=== PATIENT | female | born 1985 | race Caucasian/White ===

== ENCOUNTER 2018-02-03 09:45 | Outpatient (RCR) | payer OTHER, MEDICAID, SELFPAY ==
--- NOTE | 2018-01-20 11:47 | PT.OTN ---
Physical Therapy Treatment Note PT-OP-Q Treatments Start: 01/20/18 08:59 Freq: Status: Active Protocol: Activity Type Activity Date Activity User E-Sign Co-Sign Detail Recorded Client Recorded Date Recorded By Document 01/20/18 11:27 LRN [id number] 01/20/18 11:38 LRN 01/20/18 11:27 Therapeutic Exercises [Standing Exercises] 2 -Standing Exercise Name Soleus Stretch -Side bilateral -Reps/Minutes 3 -Comments Hold 60 sec's 1 -Standing Exercise Name Gastroc Stretch -Side bilateral -Reps/Minutes 3 -Comments Hold 60 sec's PT-OP-R Modalities Start: 01/20/18 08:59 Freq: Status: Active Protocol: Activity Type Activity Date Activity User E-Sign Co-Sign Detail Recorded Client Recorded Date Recorded By Document 01/20/18 11:27 LRN [id number] 01/20/18 11:38 LRN 01/20/18 11:27 Ultrasound Therapy [Treatment] Lateral Ankle -Treatment Duration (minutes) 4 -Coupling Medium Ultrasound Gel -Frequency Setting (mHz) 3 -Mode Setting Pulsed -Intensity Setting (w/cm2) 1.0 -Patient Tolerance Good Current Diagnoses Age-related osteoporosis with current pathological fracture, unspecified site, subsequent encounter for fracture with routine healing (01/20/18) Other abnormalities of gait and mobility (01/20/18) Nondisplaced pilon fracture of left tibia, subsequent encounter for closed fracture with routine healing (01/20/18)
--- NOTE | 2018-01-20 12:38 | PT.OTN ---
Physical Therapy Treatment Note PT-OP-A Visit Information Start: 01/20/18 08:59 Freq: Status: Active Protocol: Activity Type Activity Date Activity User E-Sign Co-Sign Detail Recorded Client Recorded Date Recorded By Document 01/20/18 12:33 LRN [id number] 01/20/18 12:34 LRN 01/20/18 12:33 Out-Patient Physical Therapy Visit Information [Visit Information] -Visit Type Treatment Note -Visit Start Time 10:40 -Visit Stop Time 11:20 -Total Visit Minutes 40 -Visit Number 3 -Number of ELECTRONIC ENGINEERING DRAFTSPERSON Visits 0 PT-OP-C Subjective Start: 01/20/18 08:59 Freq: Status: Active Protocol: Activity Type Activity Date Activity User E-Sign Co-Sign Detail Recorded Client Recorded Date Recorded By Document 01/20/18 10:40 LRN [id number] 01/20/18 12:29 LRN 01/20/18 10:40 OP-PT Subjective [Patient Comments] -Patient Comments Pt reports minimal discomfort, no pain with walking, some pain with stair ambulation (at home). Wearing soft ankle brace at work that is causing some skin irritation . States last week she twisted her ankles -Patient Reported Progress Improving PT-OP-K Range of Motion Start: 01/20/18 11:27 Freq: Status: Active Protocol: Activity Type Activity Date Activity User E-Sign Co-Sign Detail Recorded Client Recorded Date Recorded By Document 01/20/18 10:40 LRN [id number] 01/20/18 12:29 LRN 01/20/18 10:40 Ankle and Foot Goniometric Range of Motion [Ankle and Foot] Measured in Degrees Left -Testing Position Supine -Dorsiflexion with Knee Extended 10 -Plantarflexion 60 -Inversion 32 -Eversion 45 PT-OP-Q Treatments Start: 01/20/18 08:59 Freq: Status: Active Protocol: Activity Type Activity Date Activity User E-Sign Co-Sign Detail Recorded Client Recorded Date Recorded By Document 01/20/18 11:27 LRN [id number] 01/20/18 11:38 LRN 01/20/18 11:27 Cardio Equipment [Recumbent Stepper (Sci-Fit)] -Duration (Minutes) 12 -Resistance Lev 2 Therapeutic Exercises [Supine Exercises] 1 -Supine Exercise Name PROM L ankle DF -Side left -Reps/Minutes 2 minutes -Comments Manual [Sitting Exercises] 1 -Sitting Exercise Name Soleus Stretch -Side left -Reps/Minutes 2 minutes [Standing Exercises] 2 -Standing Exercise Name Soleus Stretch -Side bilateral -Reps/Minutes 4 minutes -Comments Hold 60 sec's 1 -Standing Exercise Name Gastroc Stretch -Side bilateral -Reps/Minutes 4 minutes -Comments Hold 60 sec's Gait Training [Gait Activity] 1 -Description Stair ambulation -Treatment Focus Proper descent of stairs Self-Care/Home Management Treatment [Education] -Patient Education Home Exercise Program -Other Education Gastroc, Soleus , Anterior Tibialis stretch in standing PT-OP-R Modalities Start: 01/20/18 08:59 Freq: Status: Active Protocol: Activity Type Activity Date Activity User E-Sign Co-Sign Detail Recorded Client Recorded Date Recorded By Document 01/20/18 11:27 LRN [id number] 01/20/18 11:38 LRN 01/20/18 11:27 Ultrasound Therapy [Treatment] Left Posterior Leg -Treatment Duration (minutes) 4 -Coupling Medium Ultrasound Gel -Frequency Setting (mHz) 3 -Mode Setting Pulsed -Intensity Setting (w/cm2) 1.0 -Patient Tolerance Good Lateral Ankle -Treatment Duration (minutes) 4 -Coupling Medium Ultrasound Gel -Frequency Setting (mHz) 3 -Mode Setting Pulsed -Intensity Setting (w/cm2) 1.0 -Patient Tolerance Good PT-OP-T Assessment and Plan Start: 01/20/18 08:59 Freq: Status: Active Protocol: Activity Type Activity Date Activity User E-Sign Co-Sign Detail Recorded Client Recorded Date Recorded By Document 01/20/18 10:40 LRN [id number] 01/20/18 12:29 LRN 01/20/18 10:40 Physical Therapy Assessment [Assessment Summary] -Assessment Pt has improved in function per LEFS & FAAM scores ( previous: LEFS 13.7% of maximal function and FAAM score of 35.71% ADL function). Today LEFS is 52.5% of maximal function and 57 .14% ADL function. Pt ankle mobility is same but the pt's pain is decreased with daily walking and use of stairs (goals met). The pt's primary restriction with stair ambulation is weakness of LE' s and decreased L ankle mobility. Physical Therapy Plan [Frequency and Duration] -Frequency of Treatment 1x/Week -Duration of Treatment 3 weeks -Plan of Care Start Date 12/09/17 -Plan of Care End Date 02/07/18 [Next Visit Focus/Plan] -Next Visit Plan Assess L ankle mobility and stair ambulation; set pt up on independent HEP . Hold chart open for pt's remaining 2 visit to use by end of year. Current Diagnoses Age-related osteoporosis with current pathological fracture, unspecified site, subsequent encounter for fracture with routine healing (01/20/18) Other abnormalities of gait and mobility (01/20/18) Nondisplaced pilon fracture of left tibia, subsequent encounter for closed fracture with routine healing (01/20/18)
--- NOTE | 2018-01-20 12:39 | PT.OTN ---
Addendum entered and electronically signed by Chantal New 01/20/18 14:44: On January 20, 2018 our therapy services consisting of Speech, Occupational, and Physical therapy transitioned from [employer] electronic documentation system to a new [employer] electronic system. All documentation prior to January 20 can be found under [employer] saved data. From January 20 forward, all medical record documentation will be in [email or web address]. Original Note: Physical Therapy Treatment Note PT-OP-A Visit Information Start: 01/20/18 08:59 Freq: Status: Active Protocol: Activity Type Activity Date Activity User E-Sign Co-Sign Detail Recorded Client Recorded Date Recorded By Document 01/20/18 12:33 LRN [id number] 01/20/18 12:34 LRN 01/20/18 12:33 Out-Patient Physical Therapy Visit Information [Visit Information] -Visit Type Treatment Note -Visit Start Time 10:40 -Visit Stop Time 11:20 -Total Visit Minutes 40 -Visit Number 3 -Number of BUSINESS CONTINUITY MANAGEMENT DIRECTOR Visits 0 PT-OP-C Subjective Start: 01/20/18 08:59 Freq: Status: Active Protocol: Activity Type Activity Date Activity User E-Sign Co-Sign Detail Recorded Client Recorded Date Recorded By Document 01/20/18 10:40 LRN [id number] 01/20/18 12:29 LRN 01/20/18 10:40 OP-PT Subjective [Patient Comments] -Patient Comments Pt reports minimal discomfort, no pain with walking, some pain with stair ambulation (at home). Wearing soft ankle brace at work that is causing some skin irritation . States last week she twisted her ankles -Patient Reported Progress Improving PT-OP-K Range of Motion Start: 01/20/18 11:27 Freq: Status: Active Protocol: Activity Type Activity Date Activity User E-Sign Co-Sign Detail Recorded Client Recorded Date Recorded By Document 01/20/18 10:40 LRN [id number] 01/20/18 12:29 LRN 01/20/18 10:40 Ankle and Foot Goniometric Range of Motion [Ankle and Foot] Measured in Degrees Left -Testing Position Supine -Dorsiflexion with Knee Extended 10 -Plantarflexion 60 -Inversion 32 -Eversion 45 PT-OP-Q Treatments Start: 01/20/18 08:59 Freq: Status: Active Protocol: Activity Type Activity Date Activity User E-Sign Co-Sign Detail Recorded Client Recorded Date Recorded By Document 01/20/18 11:27 LRN [id number] 01/20/18 11:38 LRN 01/20/18 11:27 Cardio Equipment [Recumbent Stepper (Sci-Fit)] -Duration (Minutes) 12 -Resistance Lev 2 Therapeutic Exercises [Supine Exercises] 1 -Supine Exercise Name PROM L ankle DF -Side left -Reps/Minutes 2 minutes -Comments Manual [Sitting Exercises] 1 -Sitting Exercise Name Soleus Stretch -Side left -Reps/Minutes 2 minutes [Standing Exercises] 2 -Standing Exercise Name Soleus Stretch -Side bilateral -Reps/Minutes 4 minutes -Comments Hold 60 sec's 1 -Standing Exercise Name Gastroc Stretch -Side bilateral -Reps/Minutes 4 minutes -Comments Hold 60 sec's Gait Training [Gait Activity] 1 -Description Stair ambulation -Treatment Focus Proper descent of stairs Self-Care/Home Management Treatment [Education] -Patient Education Home Exercise Program -Other Education Gastroc, Soleus , Anterior Tibialis stretch in standing PT-OP-R Modalities Start: 01/20/18 08:59 Freq: Status: Active Protocol: Activity Type Activity Date Activity User E-Sign Co-Sign Detail Recorded Client Recorded Date Recorded By Document 01/20/18 11:27 LRN [id number] 01/20/18 11:38 LRN 01/20/18 11:27 Ultrasound Therapy [Treatment] Left Posterior Leg -Treatment Duration (minutes) 4 -Coupling Medium Ultrasound Gel -Frequency Setting (mHz) 3 -Mode Setting Pulsed -Intensity Setting (w/cm2) 1.0 -Patient Tolerance Good Lateral Ankle -Treatment Duration (minutes) 4 -Coupling Medium Ultrasound Gel -Frequency Setting (mHz) 3 -Mode Setting Pulsed -Intensity Setting (w/cm2) 1.0 -Patient Tolerance Good PT-OP-T Assessment and Plan Start: 01/20/18 08:59 Freq: Status: Active Protocol: Activity Type Activity Date Activity User E-Sign Co-Sign Detail Recorded Client Recorded Date Recorded By Document 01/20/18 10:40 LRN [id number] 01/20/18 12:29 LRN 01/20/18 10:40 Physical Therapy Assessment [Assessment Summary] -Assessment Pt has improved in function per LEFS & FAAM scores ( previous: LEFS 13.7% of maximal function and FAAM score of 35.71% ADL function). Today LEFS is 52.5% of maximal function and 57 .14% ADL function. Pt ankle mobility is same but the pt's pain is decreased with daily walking and use of stairs (goals met). The pt's primary restriction with stair ambulation is weakness of LE' s and decreased L ankle mobility. Physical Therapy Plan [Frequency and Duration] -Frequency of Treatment 1x/Week -Duration of Treatment 3 weeks -Plan of Care Start Date 12/09/17 -Plan of Care End Date 02/07/18 [Next Visit Focus/Plan] -Next Visit Plan Assess L ankle mobility and stair ambulation; set pt up on independent HEP . Hold chart open for pt's remaining 2 visit to use by end of year. Current Diagnoses Age-related osteoporosis with current pathological fracture, unspecified site, subsequent encounter for fracture with routine healing (01/20/18) Other abnormalities of gait and mobility (01/20/18) Nondisplaced pilon fracture of left tibia, subsequent encounter for closed fracture with routine healing (01/20/18)
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
--- NOTE | 2018-05-01 08:57 | PT.OTN ---
Current Diagnoses Age-related osteoporosis with current pathological fracture, unspecified site, subsequent encounter for fracture with routine healing (02/03/18) Other abnormalities of gait and mobility (02/03/18) Nondisplaced pilon fracture of left tibia, subsequent encounter for closed fracture with routine healing (02/03/18) Physical Therapy Treatment Note PT-OP-A Visit Information Start: 01/20/18 08:59 Freq: Status: Active Protocol: Document 05/01/18 08:54 LRN (Rec: 05/01/18 08:57 LRN [id number]) Out-Patient Physical Therapy Visit Information Visit Information Visit Type Administrative Note Visit Note Message left on phone requesting pt to call back regarding pt needing further therapy visits. Informed pt if she does not call back by she will be discharged from therapy. Visit Start Time 08:55
--- NOTE | 2018-05-21 10:12 | PT.OPDS ---
Current Diagnoses Age-related osteoporosis with current pathological fracture, unspecified site, subsequent encounter for fracture with routine healing (02/03/18) Other abnormalities of gait and mobility (02/03/18) Nondisplaced pilon fracture of left tibia, subsequent encounter for closed fracture with routine healing (02/03/18) Provider Visit Care Team Role Provider Type Roberto Carlos Sood MD Attending Provider Physician Primary Care Provider Specialty: Internal Medicine Address: [address] [place] [address], [facility] Email: Visit Number Visit Number 4 Discharge Summary Patient Questionnaires Foot & Ankle Ability Measure- ADL and Sports FAAM-ADL Score 61 FAAM-ADL Impairment 20 to 39% Impaired (Score 50- 66) Lower Extremity Functional Scale LEFS Score 41 LEFS Impairment 40 to 59% Impaired (Score 32- 47) PT-OP-K Range of Motion Start: 01/20/18 11:27 Freq: Status: Active Protocol: Document 02/03/18 10:06 LRN (Rec: 02/06/18 20:09 LRN [id number]) Ankle and Foot Goniometric Range of Motion Ankle and Foot Measured in Degrees Left Passive Testing Position Supine Dorsiflexion with Knee Extended 15 Right Active Testing Position Supine Dorsiflexion with Knee Extended 10 Plantarflexion 65 Inversion 25 Eversion 25 Left Testing Position Supine Dorsiflexion with Knee Extended 10 Plantarflexion 60 Inversion 20 Eversion 32 PT-OP-T Assessment and Plan Start: 01/20/18 08:59 Freq: Status: Active Protocol: Document 05/21/18 10:03 LRN (Rec: 05/21/18 10:12 LRN [id number]) Physical Therapy Assessment Progress Towards Goals Progress Towards Goals Goals Met Progress Comments 1) Function improved per Lower Extremity Function Scale Score: Discharge: 51% impaired . 2) Function per Foot & Ankle Ability Measure: ADL: Discharge: 72% function. 3) L ankle AROM improvements met. Pt is able to ambulate on level surface with her normal gait pattern and no pain. 4) Muscle strength improved: Prolonged walking at end of day work causes slight sore feet. 5) Stair ambulation: Pt is avle to ambulate going up stairs without difficulty or pain. Descending stairs is limited depending on the height of the step. She must descend slowly and using a railing for safety. 6) Pt has been issued home ex 's. Assessment Summary Assessment The pt was last seen on . Assessment of the pt on her last attended visit showed she had progressed well with intermittent therapy visits, and the pt working independently on a home program. Functionally she had improved greatly. 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 The primary area of concern was with her balance due to weakness and decreased sensation in her feet from her previous stroke. The pt had been educated on a HEP and was aware of her physical deficits. The pt will need a new physical therapy referral if further therapy is needed. Thank you for your physical therapy referral. Physical Therapy Plan Next Visit Focus/Plan Next Note Type Discharge Summary Next Visit Plan Pt has completed therapy with good results and goals met. No further therapy is planned. Pt is being discharged from physical therapy.
== END 2018-05-22 09:38 ==
LOC: PHYS 09:45
PROVIDERS: PCP Internal Medicine; Visit Provider Internal Medicine
DX: S82.875D Nondisplaced pilon fracture of left tibia, subsequent encounter for closed fracture with routine healing (principal); M80.00XD Age-related osteoporosis with current pathological fracture, unspecified site, subsequent encounter for fracture with routine healing; R26.89 Other abnormalities of gait and mobility
CPT/HCPCS: 97010; 97035; 97110

== ENCOUNTER 2018-02-07 19:36 | Emergency (ER) | payer OTHER, MEDICAID, SELFPAY ==
[2018-02-07 19:46] VITALS: BP 112/78; PULSE 110; RESP 18; TEMP 36.1; O2SAT 99; BMI 16.8
--- NOTE | 2018-02-07 20:29 | PC.NURSE ---
patient requesting assistance with her alcohol dependency. physician evaluating patient presently. patient states last drink was immediately prior to arrival.
--- NOTE | 2018-02-07 20:52 | ED.ALCOHOL ---
HPI - Alcohol General Chief Complaint: Toxicology Problem Stated Complaint: 'NEED TO GO TO DETOX' Time Seen by Provider: 02/07/18 20:24 History of Present Illness HPI narrative: HPI 32-year-old female with history of EtOH abuse presents requesting assistance with alcohol withdraw. Patient is been drinking throughout the day at baseline. Patient reports that she drinks at least 6 rings day. Patient denies history of prior DVT or seizures during withdrawal. Patient has access to AA and to sponsors. Patient's primary care physician. Patient denies recent fevers, chills, or other systemic symptoms. Patient reports a history of ascites, takes furosemide and Spironolactone. Patient has follow-up on Friday with a liver specialist at . ROS with no recent constitutional symptoms. Exam Gen: Pleasant, non-toxic appearing, resting comfortably HEENT: NC, AT, PEERL, EOMI. Resp: Clear to auscultation bilaterally. Unlabored respirations with a normal work of breathing. Card: Regular rate and rhythm. Extremities warm and well perfused. GI: Non-distended. : Deferred MSK: No visible deformities, strength and tone without visually appreciable deficit. Neuro: AO x 3, no facial asymmetry, vision and hearing WNL. Mild slurring of speech. Heme/Lymph: Deferred Skin: Normal color with no visible lesions (other than noted above). Psych: Mood and affect appropriate. MDM Previous chart, nursing note, and vitals reviewed. A: 32-year-old female with history of EtOH abuse presents requesting assistance with alcohol withdraw. DDx & Evaluation: patient without findings of clinically significant impairment, nor evidence of withdraw on exam. Discussed management options with patient regarding remain the ED for contacting [facility] for possible inpatient care versus discharge with follow-up by patient with PCP, [facility], and AA. Patient elected for discharge. Patient prescribed gabapentin taper given return to care precautions. Impression: substance abuse (please reference below for remainder of encounter information) Related Data Home Medications Medication Instructions Recorded Confirmed ciprofloxacin HCl [Cipro] 750 mg PO QWEEK #0 06/03/17 lorazepam 1 mg PO BIDP PRN #0 09/13/17 sertraline 25 mg PO QDAY #0 09/13/17 cholecalciferol (vitamin D3) 1,000 unit PO QDAY #0 09/18/17 [Vitamin D3] lactulose 20 gm PO BID #0 09/18/17 spironolactone 100 mg PO QDAY #0 09/18/17 trazodone 100 mg PO HS #0 09/18/17 amitriptyline 75 mg PO HS #0 12/03/17 ranitidine HCl 150 mg PO HS #0 12/03/17 Previous Rx's Medication Instructions Recorded bupropion HCl [Wellbutrin XL] 150 mg PO QDAY #30 tab 05/28/17 ondansetron 4 mg SUBLINGUAL Q6HP PRN #14 tab 05/28/17 furosemide 40 mg PO QDAY #30 tab 12/03/17 potassium chloride 20 meq PO QDAY #90 tab 12/03/17 lorazepam [Ativan] 1 mg PO SEE INSTRUCTIONS #18 tab 12/24/17 ondansetron [Zofran ODT] 4 mg SUBLINGUAL Q6HP PRN #16 odt 12/24/17 Allergies Allergy/AdvReac Type Severity Reaction Status Date / Time No Known Allergies Allergy Uncoded 12/31/17 12:43 PFSH Social History Smoking Status: Former smoker Exam Initial Vital Signs Initial Vital Signs: Vital Signs Temperature 96.9 F L 02/07/18 19:46 Pulse Rate 110 H 02/07/18 19:46 Respiratory Rate 18 02/07/18 19:46 Blood Pressure 112/78 02/07/18 19:46 Pulse Oximetry 99 02/07/18 19:46 Course Vital Signs - 8 hr 02/07/18 19:46 Temperature 96.9 F L Pulse Rate 110 H Respiratory Rate 18 Blood Pressure 112/78 Pulse Oximetry 99 Discharge Plan Departure Prescriptions: No Action bupropion HCl [Wellbutrin XL] 150 MG tablet extended release 24 hr 150 mg PO QDAY Qty: 30 RF: 0 ondansetron 4 MG tablet,disintegrating 4 mg Sublingual Q6HP PRNQty: 14 RF: 0 ciprofloxacin HCl [Cipro] 500 MG tablet 750 mg PO QWEEK Qty: 0 RF: 0 sertraline 25 MG tablet 25 mg PO QDAY Qty: 0 RF: 0 lorazepam 1 MG tablet 1 mg PO BIDP PRNQty: 0 RF: 0 lactulose 20 GM/30 ML solution 20 gm PO BID Qty: 0 RF: 0 spironolactone 100 MG tablet 100 mg PO QDAY Qty: 0 RF: 0 cholecalciferol (vitamin D3) [Vitamin D3] 1,000 UNIT tablet 1,000 unit PO QDAY Qty: 0 RF: 0 trazodone 50 MG tablet 100 mg PO HS Qty: 0 RF: 0 ranitidine HCl 150 MG tablet 150 mg PO HS Qty: 0 RF: 0 amitriptyline 25 MG tablet 75 mg PO HS Qty: 0 RF: 0 furosemide 40 MG tablet 40 mg PO QDAY Qty: 30 RF: 0 potassium chloride 20 MEQ tablet,ER particles/crystals 20 meq PO QDAY Qty: 90 RF: 0 lorazepam [Ativan] 1 MG tablet 1 mg PO SEE INSTRUCTIONS Qty: 18 RF: 0 ondansetron [Zofran ODT] 4 MG tablet,disintegrating 4 mg Sublingual Q6HP PRNQty: 16 RF: 0
[2018-02-07 21:19] VITALS: BP 94/65; PULSE 94; RESP 18; O2SAT 100
== END 2018-02-07 21:22 | disposition home or self-care (01) ==
PROVIDERS: Emergency Provider Emergency Medicine; PCP Internal Medicine
DX: F10.10 Alcohol abuse, uncomplicated (principal)
CPT/HCPCS: 99282

== ENCOUNTER → 2018-03-24 11:59 | Outpatient (CLI) | payer OTHER, MEDICAID, SELFPAY ==
--- NOTE | 2018-03-24 | DI.RAD.S_ITS ---
PROCEDURE: XR KNEE LT 3V INDICATIONS: PAIN IN LEFT ANKLE AND JOINTS, PAIN IN LEFT KNEE TECHNIQUE: 3 views of the knee were acquired. COMPARISON: [facility], CR, XR KNEE ARTHRITIC SERIES LT, 12/09/2016, 10:01. [facility], CR, KNEE 3V LEFT, 05/03/2017, 7:35. [facility], CR, KNEE 3V LEFT, 09/09/2017, 10:20. FINDINGS: Bones: No fractures or dislocations. There is minimal involvement of ill-defined sclerosis involving the medial and lateral femoral condyles probable possible subtle lytic area involving the lateral femoral condyle measuring 2.8 cm. Subcentimeter unchanged presumed bone island projects in the medial femoral condyle. There is degenerative spurring and mild narrowing of the medial and lateral joint spaces. Soft tissues: Small left knee joint effusion. There is diffuse soft tissue swelling. No suspicious soft tissue calcifications. IMPRESSION: Interval development of ill-defined lucent focus involving the medial femoral condyle and patchy surrounding sclerosis. Findings are technically indeterminate however cannot exclude an indolent infection, or possibly atypical avascular necrosis. Recommend further evaluation with contrast-enhanced MRI knee. Mild joint degeneration. Small knee joint effusion. Diffuse soft tissue swelling which appears progressed since the prior study dated 12/09/16 Dictated by: Chano Sierra M.D. on 03/24/2018 at 13:53 Approved by: Chano Sierra M.D. on 03/24/2018 at 14:00
--- NOTE | 2018-03-24 | DI.RAD.S_ITS ---
PROCEDURE: XR ANKLE LT MIN 3V INDICATIONS: PAIN IN LEFT ANKLE AND JOINTS, PAIN IN LEFT KNEE TECHNIQUE: 3 views of the ankle were acquired. COMPARISON: [facility], CT, LOWER EXTREMITY WO CONTRAST, 10/02/2017, 13:08. [facility], CR, FOOT 3V LEFT, 09/13/2017, 13:06. [facility], CR, XR ANKLE 3+ VIEWS RIGHT, 07/04/2017, 10:01. [facility], CT, LOWER EXTREMITY WO CONTRAST, 06/26/2017, 10:23. [facility], CR, ANKLE 3 VIEWS LEFT, 06/03/2017, 1:24. [facility], CR, XR ANKLE 3+ VIEWS LEFT, 09/25/2017, 15:26. [facility], CR, XR ANKLE 3+ VIEWS LEFT, 10/23/2017, 13:35. [facility], CR, XR KNEE LT 3V, 03/24/2018, 12:06. [facility], CR, ANKLE 3 VIEWS LEFT, 09/13/2017, 13:06. FINDINGS: Bones: No definite acute fractures or dislocations. Ankle mortise is normally aligned. There is increased conspicuity of patchy sclerosis in the tibial pond and distal tibial metaphysis. Tibiotalar joint space is grossly clear. Bone island projects in the talus, unchanged. There is also periosteal reaction along the medial aspect of the distal tibial metaphysis. Soft tissues: No tibiotalar joint effusion. Achilles tendon appears normal. IMPRESSION: Interval development of patchy sclerosis involving the distal tibial metaphysis with periosteal new bone formation along the medial distal tibial cortex in keeping with healing nondisplaced fracture. No definite acute fracture is seen although if the patient's symptoms persist, recommend further assessment with dedicated noncontrast ankle MRI. Dictated by: Chano Sierra M.D. on 03/24/2018 at 14:00 Approved by: Chano Sierra M.D. on 03/24/2018 at 14:16
[2018-03-24 12:37] LABS: Add Manual Diff / Slide Review NO; Basophils Percent Auto 1.3 % (0-2); Eosinophils Percent Auto 1.2 % (2-4); Hematocrit 31.7 % (36-46); Hemoglobin 10.9 g/dL (12.0-16.0); Lymphocytes Percent Auto 37.3 % (25-40); Mean Corpuscular HGB Conc 34.5 % (30-36); Mean Corpuscular Hemoglobin 34.9 PG (26-34); Mean Corpuscular Volume 101.1 fL (80-100); Monocytes Percent Auto 18.9 % (3-14); Neutrophils Absolute Auto 1200 /uL (3000-5900); Neutrophils Percent Auto 41.3 % (50-75); Platelet Count 180 X10^3/uL (150-400); Red Blood Cell Count 3.13 X10^6/uL (4.0-5.2); Red Cell Distribution Width 14.6 % (11.6-14.8); White Blood Cell Count 2.8 X10^3/uL (4.5-11.0)
[2018-03-24 12:46] LABS: Alanine Aminotransferase 23 IU/L (9-52); Albumin 4.1 g/dL (3.5-5.0); Albumin Globulin Ratio 1.2 (1.0-2.8); Alkaline Phosphatase 127 U/L (38-126); Aspartate Aminotransferase 38 IU/L (14-36); Bilirubin Total 0.3 mg/dL (0.2-1.3); Bilirubin Unconjugated 0.1 mg/dL (0.0-1.1); Globulin 3.3 g/dL (1.7-4.1); HEMOLYSIS < 15 (0-50); Total Protein 7.4 g/dL (6.3-8.2)
[2018-03-24 12:56] LABS: INR 1.2 (0.9-1.3)
== END ==
PROVIDERS: PCP Internal Medicine; Visit Provider Physician Assistant
DX: M25.572 Pain in left ankle and joints of left foot (principal); M25.562 Pain in left knee; K70.31 Alcoholic cirrhosis of liver with ascites; K70.40 Alcoholic hepatic failure without coma; M17.12 Unilateral primary osteoarthritis, left knee; M25.462 Effusion, left knee
CPT/HCPCS: 36415; 73562; 73610; 80076; 85025; 85610

== ENCOUNTER → 2018-04-08 16:26 | Outpatient (CLI) | payer OTHER, MEDICAID, SELFPAY ==
--- NOTE | 2018-04-08 | DI.MRI.S_ITS ---
PROCEDURE: MR KNEE LT WO/W CON INDICATIONS: Left knee pain TECHNIQUE: Noncontrast sagittal PD fast spin echo and T2 fast spin echo with fat saturation, sagittal 3-D FLASH with fat saturation; coronal T1 spin echo and PD fast spin echo with fat saturation, and axial T1 spin echo and PD fast spin echo with fat saturation through the knee. Post-contrast axial, coronal, and sagittal T1 spin echo with fat saturation through the knee. COMPARISON: [facility], CT, LOWER EXTREMITY WO CONTRAST, 06/26/2017, 10:23. [facility], CR, XR ANKLE LT MIN 3V, 03/24/2018, 12:07. [facility], MR, MR KNEE LT WO CON, 12/09/2016, 10:53. [facility], CR, KNEE 3V LEFT, 09/09/2017, 10:20. [facility], CR, XR KNEE LT 3V, 03/24/2018, 12:06. FINDINGS: Image quality: Excellent. Menisci: The medial and lateral menisci demonstrate normal morphology and. The meniscal root ligaments appear intact. Cruciate ligaments: The anterior and posterior cruciate ligaments appear intact. Medial structures: The medial collateral ligament appears intact. The posterior oblique ligament, semimembranosus tendon insertions, and oblique popliteal liagment, and meniscocapsular junction appear intact. Visualized portions of the pes anserinus tendons appear normal. No abnormal bursal fluid. Lateral structures: The lateral collateral ligament, long and short heads of the biceps femoris tendon appear intact. The popliteus tendon appears normal; the popliteofibular ligament appears intact. The posterosuperior and anteroinferior popliteomeniscal fascicles appear intact. The arcuate and fabellofibular ligaments appear intact, around the lateral inferior geniculate artery. Iliotibial band appears normal. Anterior structures: The quadriceps and patellar tendons appear intact. Patellar alignment is normal. No femoral trochlear dysplasia or ventral trochlear prominence. No edema in the infrapatellar fat pad. Bones and cartilage: There is a large geographic area in the femoral metaphysis and both medial and lateral femoral condyles, demonstrating hypoeintense T1 and hyperintense T2 signal, consistent with avascular osteonecrosis. Linear low signal extending to the articular surface of the medial and lateral femoral condyle. In the medial tibial plateau, similar findings are present just under the articular surface, consistent with avascular osteonecrosis. The cartilage of the medial and lateral femorotibial compartments, as well as the patellofemoral compartment, appears normal in thickness. Joint space: There is small knee joint effusion. Tiny Tijerina's cyst. Normal appearing synovial plicae are incidentally noted. No suspicious soft tissue enhancement. IMPRESSION: 1. 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 Linear low signal extending to the articular surface of the medial and lateral femoral condyle. There is no deformity or collapse of femoral articular surface. 2. Avascular the medial tibial plateau. 3. Small knee joint effusion. 4. Recommend clinical correlation for risk factors of avascular osteonecrosis, such as chronic steroids use, alcoholism, sickle cell disease and Gaucher disease. If there is systemic condition predisposing for avascular osteonecrosis, contralateral knee MRI may be obtained if there is right knee pain as well. Dictated by: Dileep Pichardo M.D. on 04/09/2018 at 9:30 Transcribed by: GLENN on 04/09/2018 at 9:45 Approved by: Dileep Pichardo M.D. on 04/10/2018 at 18:42
== END ==
PROVIDERS: PCP Internal Medicine; Visit Provider Physician Assistant
DX: M25.562 Pain in left knee (principal); M25.462 Effusion, left knee; M89.8X6 Other specified disorders of bone, lower leg
CPT/HCPCS: 73723

== ENCOUNTER 2018-04-11 21:27 | Emergency (ER) | payer OTHER, MEDICAID, SELFPAY ==
[2018-04-11 21:37] VITALS: BP 112/81; PULSE 87; RESP 18; TEMP 36.7; O2SAT 98; BMI 16.8
[2018-04-11 21:45] VITALS: PULSE 87
--- NOTE | 2018-04-11 21:53 | DI.RAD.S_ITS ---
PROCEDURE: XR HIP W PEL IF DONE RT 2V INDICATIONS: R hip pain, cannot ambulate TECHNIQUE: AP pelvis with lateral view(s) of the right hip(s). COMPARISON: [facility], CT, ABDOMEN/PELVIS WITH CONTRAST, 03/05/2017, 22:18. FINDINGS: Bones: No fractures or dislocations. Pelvic ring appears intact. No suspicious bony lesions. Soft tissues: The visualized bowel gas pattern is normal. No suspicious soft tissue calcifications. IMPRESSION: No visualized fracture. The clinical concern and/or pain persist, short interval imaging followup and 7-10 days is recommended for further evaluation Dictated by: Lissy Fuentes M.D. on 04/11/2018 at 22:38 Approved by: Lissy Fuentes M.D. on 04/11/2018 at 22:39
--- NOTE | 2018-04-11 22:52 | ED_ITS ---
HPI - Extremity Problem General Chief complaint: Extremity Problem,Nontraumatic Stated complaint: RIGHT HIP PAIN Time Seen by Provider: 04/11/18 21:45 Source: patient and family Mode of arrival: ambulatory Limitations: no limitations History of Present Illness HPI Narrative: 32-year-old female with extensive history of chronic malnutrition , anorexia or, chronic alcoholism presents with right hip pain in the absence of injury over the past few days. She does have significant trouble with her left knee and had a recent MRI which shows avascular necrosis and as the result she has been walking with an altered gait for some time. She does state that on occasion she feels clicking and popping in her hip. She denies radiation of the pain. It is worse with motion and improves with rest. MD Complaint: extremity pain Onset (ago): day(s) Pain Consistency: constant Location: right Quality: burning and stabbing Radiation: none Relieving factors: rest Exacerbating factors: range of motion, weight bearing and walking Associated symptoms: denies other symptoms Related Data Home Medications Medication Instructions Recorded Confirmed ciprofloxacin HCl [Cipro] 750 mg PO QWEEK #0 06/03/17 lorazepam 1 mg PO BIDP PRN #0 09/13/17 sertraline 25 mg PO QDAY #0 09/13/17 cholecalciferol (vitamin D3) 1,000 unit PO QDAY #0 09/18/17 [Vitamin D3] lactulose 20 gm PO BID #0 09/18/17 spironolactone 100 mg PO QDAY #0 09/18/17 trazodone 100 mg PO HS #0 09/18/17 amitriptyline 75 mg PO HS #0 12/03/17 ranitidine HCl 150 mg PO HS #0 12/03/17 Previous Rx's Medication Instructions Recorded bupropion HCl [Wellbutrin XL] 150 mg PO QDAY #30 tab 05/28/17 ondansetron 4 mg SUBLINGUAL Q6HP PRN #14 tab 05/28/17 furosemide 40 mg PO QDAY #30 tab 12/03/17 potassium chloride 20 meq PO QDAY #90 tab 12/03/17 lorazepam [Ativan] 1 mg PO SEE INSTRUCTIONS #18 tab 12/24/17 ondansetron [Zofran ODT] 4 mg SUBLINGUAL Q6HP PRN #16 odt 12/24/17 gabapentin 400 mg PO TID #20 cap 02/07/18 hydrocodone-acetaminophen 1 tab PO Q4-6H PRN #14 tab 04/11/18 Allergies Allergy/AdvReac Type Severity Reaction Status Date / Time No Known Allergies Allergy Uncoded 12/31/17 12:43 Review of Systems Review of Systems All systems reviewed & are unremarkable except as noted in HPI and below Constitutional Denies chills, Denies fever(s), Denies lethargy and Denies weakness Eyes Denies change in vision, Denies eye discharge, Denies irritation and Denies loss of vision ENT Ears, Nose, Mouth, and Throat: Denies change in voice, Denies neck pain and Denies sore throat Cardiovascular Denies chest pain, Denies irregular heart rhythm, Denies lightheadedness, Denies palpitations, Denies dyspnea, Denies dyspnea on exertion and Denies orthopnea Respiratory Denies cough, Denies dyspnea, Denies dyspnea on exertion and Denies wheezing Gastrointestinal Gastrointestinal: Denies abdominal pain, Denies change in bowel habits, Denies diarrhea, Denies nausea and Denies vomiting Genitourinary Denies hematuria, Denies flank pain, Denies urinary incontinence and Denies urinary urgency Musculoskeletal Reports limited range of motion and Denies neck pain Integumentary/Breasts Denies pruritus, Denies erythema, Denies rash and Denies wounds Neurologic Denies confusion, Denies loss of vision and Denies weakness Psychiatric Denies anxiety, Denies confusion, Denies depression, Denies homicidal ideation and Denies suicidal ideation Endocrine Denies palpitations Hematologic/Lymphatic Denies easy bruising Allergic/Immunologic Denies wheezing [facility] Social History Smoking Status: Former smoker Exam Narrative Exam Narrative: Chronically ill 32-year-old female appears older than stated age. She is, however resting comfortably and in no obvious acute distress Initial Vital Signs Initial Vital Signs: Vital Signs Temperature 98.0 F 04/11/18 21:37 Pulse Rate 87 04/11/18 21:37 Respiratory Rate 18 04/11/18 21:37 Blood Pressure 112/81 H 04/11/18 21:37 Pulse Oximetry 98 04/11/18 21:37 Const General: cooperative, well developed and frail appearing Nutritional Appearance: underweight Orientation: alert, awake, oriented x3 and not confused HENMT Head: normocephalic and atraumatic Ears: external ears normal and TM's normal bilaterally Nose: external nose normal and No nasal discharge Face and sinus: sinuses nontender, face symmetric, no sinus tenderness and No dry mucous membranes Mouth: oral mucosae normal and moist mucous membranes Teeth and gingiva: dentition normal Throat: tonsils normal and uvula midline Resp Effort & Inspection: normal respiratory effort, able to speak in complete sentences, no respiratory distress and no use of accessory muscles Auscultation: clear to auscultation bilaterally, no rales, no rhonchi and no wheezes GI Inspection: non-distended Palpation: soft, no hepatosplenomegaly, No guarding, No pulsatile mass and No tender Auscultation: normal bowel sounds Extrem Right lower extremity: hip/thigh Course Orders Ordered: ED Orders 04/11/18 21:53 XR hip w pel if done RT 2V Stat Discontinued Medications Hydrocodone Bitart/Acetaminophen (Vicodin Prepack) 1 bottle MISC SEEINSTR ONE Stop: 04/11/18 22:48 Last Admin: 04/11/18 22:57 Dose: 1 bottle Vital Signs - 8 hr 04/11/18 22:58 Pulse Rate 79 Respiratory Rate 16 Blood Pressure [Left Arm] 104/78 Pulse Oximetry 96 MDM - Extremity (Nontraumatic) Imaging Data Hip Xray: Attestation: I personally reviewed and interpreted this imaging study as follows: My impression: NAP Radiologist's impression: Discharge Plan Departure Patient Disposition: Home, Self-Care Clinical Impression: Acute hip pain Discharge Date/Time: 04/11/18 23:00 Interventions: ED Discharge Assessment Last Done: 04/11/18 23:12 Instructions: DI for Hip Pain Activity Restrictions/Additional Instructions: *You have been diagnosed with [ acute right hip pain ] *What to do: *Take medications as directed *Follow up with your orthopedic provider in 2-3 days, call for an appointment. Let them know you were seen in the Emergency Department and that we ask that you be seen in follow up *Return to ER if you should have any new, worsening or concerning symptoms , such as [increasing pain, weakness, numbness or tingling, other concerning symptoms ] You have been prescribed narcotic medications. While on these medications you cannot drive or operate heavy machinery. Additionally you cannot sign legal documents or perform any duties such as this. 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 Please understand that we cannot provide further refills of narcotics or controlled substances through the ED and your pain management will need to be through your Primary Care Provider Prescriptions: New hydrocodone-acetaminophen 5-325 mg tablet 1 tab PO Q4-6H PRN (Reason: pain) Qty: 14 RF: 0 No Action bupropion HCl [Wellbutrin XL] 150 MG tablet extended release 24 hr 150 mg PO QDAY Qty: 30 RF: 0 ondansetron 4 MG tablet,disintegrating 4 mg Sublingual Q6HP PRNQty: 14 RF: 0 ciprofloxacin HCl [Cipro] 500 MG tablet 750 mg PO QWEEK Qty: 0 RF: 0 sertraline 25 MG tablet 25 mg PO QDAY Qty: 0 RF: 0 lorazepam 1 MG tablet 1 mg PO BIDP PRNQty: 0 RF: 0 lactulose 20 GM/30 ML solution 20 gm PO BID Qty: 0 RF: 0 spironolactone 100 MG tablet 100 mg PO QDAY Qty: 0 RF: 0 cholecalciferol (vitamin D3) [Vitamin D3] 1,000 UNIT tablet 1,000 unit PO QDAY Qty: 0 RF: 0 trazodone 50 MG tablet 100 mg PO HS Qty: 0 RF: 0 ranitidine HCl 150 MG tablet 150 mg PO HS Qty: 0 RF: 0 amitriptyline 25 MG tablet 75 mg PO HS Qty: 0 RF: 0 furosemide 40 MG tablet 40 mg PO QDAY Qty: 30 RF: 0 potassium chloride 20 MEQ tablet,ER particles/crystals 20 meq PO QDAY Qty: 90 RF: 0 lorazepam [Ativan] 1 MG tablet 1 mg PO SEE INSTRUCTIONS Qty: 18 RF: 0 ondansetron [Zofran ODT] 4 MG tablet,disintegrating 4 mg Sublingual Q6HP PRNQty: 16 RF: 0 gabapentin 400 mg capsule 400 mg PO TID Qty: 20 RF: 0
[2018-04-11] MEDS: HYDROCODONE/ACET 5/325 PREPACK 1 BOTTLE MISC (22:57)
[2018-04-11 22:58] VITALS: BP 104/78; PULSE 79; RESP 16; O2SAT 96
== END 2018-04-11 23:00 | disposition home or self-care (01) ==
PROVIDERS: Emergency Provider Emergency Medicine; PCP Internal Medicine
DX: M25.551 Pain in right hip (principal)
CPT/HCPCS: 73502; 99282; 99283

== ENCOUNTER → 2018-04-15 16:13 | Outpatient (CLI) | payer OTHER, MEDICAID, SELFPAY ==
[2018-04-15 18:03] LABS: Alanine Aminotransferase 20 IU/L (9-52); Albumin 4.5 g/dL (3.5-5.0); Albumin Globulin Ratio 1.5 (1.0-2.8); Alkaline Phosphatase 121 U/L (38-126); Aspartate Aminotransferase 37 IU/L (14-36); BUN Creatinine Ratio 8.2 (6-22); Bilirubin Total 0.6 mg/dL (0.2-1.3); Blood Urea Nitrogen 9 mg/dL (7-17); Calcium 10.2 mg/dL (8.4-10.2); Chloride 81 mmol/L (98-107); Estimated Glomerular Filt Rate 57.9 mL/min (>60); Globulin 3.1 g/dL (1.7-4.1); Glucose 76 mg/dL (70-100); HEMOLYSIS < 15 (0-50); Potassium 3.5 mmol/L (3.4-5.1); Sodium 135 mmol/L (137-145); Total Protein 7.6 g/dL (6.3-8.2)
[2018-04-15 18:07] LABS: Erythrocyte Sedimentation Rate 56 MM/HR (0-20)
[2018-04-15 18:20] LABS: C-Reactive Protein Quant 2.9 mg/dL (<1.0)
[2018-04-15 18:54] LABS: Carbon Dioxide 40 mmol/L (22-32)
== END ==
PROVIDERS: PCP Internal Medicine; Visit Provider Internal Medicine
DX: K70.31 Alcoholic cirrhosis of liver with ascites (principal); K70.40 Alcoholic hepatic failure without coma; M87.062 Idiopathic aseptic necrosis of left tibia
CPT/HCPCS: 36415; 80053; 85651; 86140

== ENCOUNTER → 2018-05-05 14:41 | Outpatient (CLI) | payer OTHER, MEDICAID, SELFPAY ==
[2018-05-05 16:15] LABS: Hematocrit 33.8 % (36-46); Hemoglobin 12.2 g/dL (12.0-16.0); Mean Corpuscular Volume 96.7 fL (80-100); White Blood Cell Count 3.1 X10^3/uL (4.5-11.0)
[2018-05-05 16:16] LABS: Add Manual Diff / Slide Review NO; Basophils Percent Auto 0.4 % (0-2); Eosinophils Percent Auto 0.4 % (2-4); Lymphocytes Percent Auto 36.8 % (25-40); Mean Corpuscular HGB Conc 36.2 % (30-36); Monocytes Percent Auto 16.6 % (3-14); Neutrophils Absolute Auto 1 /uL (3000-5900); Neutrophils Percent Auto 45.8 % (50-75); Platelet Count 249 X10^3/uL (150-400); Red Cell Distribution Width 13.9 % (11.6-14.8)
[2018-05-05 16:30] LABS: Erythrocyte Sedimentation Rate 44 MM/HR (0-20)
[2018-05-05 16:41] LABS: C-Reactive Protein Quant 1.7 mg/dL (<1.0)
== END ==
PROVIDERS: PCP Internal Medicine; Visit Provider Physician Assistant
DX: M25.562 Pain in left knee (principal)
CPT/HCPCS: 36415; 85025; 85651; 86140

== ENCOUNTER 2018-05-12 06:18 | Emergency (ER) | payer OTHER, MEDICAID, SELFPAY ==
[2018-05-12 06:25] VITALS: BP 119/81; PULSE 74; RESP 16; TEMP 36.2; O2SAT 100; BMI 16.2
[2018-05-12] MEDS: OXYCODONE/ACETAMINOPHEN 5/325 TABLET 2 TAB PO (07:02)
--- NOTE | 2018-05-12 09:21 | DI.RAD.S_ITS ---
PROCEDURE: XR FOOT LT MIN 3V INDICATIONS: LEFT FOOT PAIN TECHNIQUE: 3 views of the foot were acquired. COMPARISON: [facility], , FOOT 3V LEFT, 09/13/2017, 13:06. FINDINGS: Bones: Displaced fractures of the distal fourth and fifth metatarsals noted. Fracture lucencies do not extend into the metatarsal-phalangeal joints. Soft tissues: No tibiotalar joint effusion. Achilles tendon appears normal. IMPRESSION: Fourth and fifth metatarsal fractures. Dictated by: April Martel MD, PhD on 05/12/2018 at 9:16 Approved by: April Martel MD, PhD on 05/12/2018 at 9:18
--- NOTE | 2018-05-13 05:16 | ED_ITS ---
HPI - Extremity Injury (Lower) General Chief Complaint: Extremity Injury, Lower Stated Complaint: left foot feels shattered,pain Time Seen by Provider: 05/12/18 06:51 Source: patient Mode of arrival: ambulatory Limitations: no limitations History of Present Illness HPI Narrative: 32-year-old female known well to myself and other staff presents to the emergency department with significant left foot pain in the absence of any known injury. She has chronic alcoholism and as the result significant osteopenia and multiple fractures. She denies other injury. Her pain is worse with motion and improves with rest. She denies numbness, tingling or weakness Relieving factors: immobilization and rest Exacerbating factors: weight bearing Associated symptoms: snap/pop sensation, swelling and unable to bear weight Related Data Home Medications Medication Instructions Recorded Confirmed ciprofloxacin HCl [Cipro] 750 mg PO QWEEK #0 06/03/17 lorazepam 1 mg PO BIDP PRN #0 09/13/17 sertraline 25 mg PO QDAY #0 09/13/17 cholecalciferol (vitamin D3) 1,000 unit PO QDAY #0 09/18/17 [Vitamin D3] lactulose 20 gm PO BID #0 09/18/17 spironolactone 100 mg PO QDAY #0 09/18/17 trazodone 100 mg PO HS #0 09/18/17 amitriptyline 75 mg PO HS #0 12/03/17 ranitidine HCl 150 mg PO HS #0 12/03/17 Previous Rx's Medication Instructions Recorded bupropion HCl [Wellbutrin XL] 150 mg PO QDAY #30 tab 05/28/17 ondansetron 4 mg SUBLINGUAL Q6HP PRN #14 tab 05/28/17 furosemide 40 mg PO QDAY #30 tab 12/03/17 potassium chloride 20 meq PO QDAY #90 tab 12/03/17 lorazepam [Ativan] 1 mg PO SEE INSTRUCTIONS #18 tab 12/24/17 ondansetron [Zofran ODT] 4 mg SUBLINGUAL Q6HP PRN #16 odt 12/24/17 gabapentin 400 mg PO TID #20 cap 02/07/18 hydrocodone-acetaminophen 1 tab PO Q4-6H PRN #14 tab 04/11/18 Allergies Allergy/AdvReac Type Severity Reaction Status Date / Time No Known Allergies Allergy Uncoded 12/31/17 12:43 Review of Systems Review of Systems All systems reviewed & are unremarkable except as noted in HPI and below Constitutional Denies chills, Denies fever(s), Denies lethargy and Denies weakness Eyes Denies change in vision, Denies eye discharge, Denies irritation and Denies loss of vision ENT Ears, Nose, Mouth, and Throat: Denies change in voice, Denies neck pain and Denies sore throat Cardiovascular Denies chest pain, Denies irregular heart rhythm, Denies lightheadedness, Denies palpitations, Denies dyspnea, Denies dyspnea on exertion and Denies orthopnea Respiratory Denies cough, Denies dyspnea, Denies dyspnea on exertion and Denies wheezing Gastrointestinal Gastrointestinal: Denies abdominal pain, Denies change in bowel habits, Denies diarrhea, Denies nausea and Denies vomiting Genitourinary Denies hematuria, Denies flank pain, Denies urinary incontinence and Denies urinary urgency Musculoskeletal Reports abnormal gait, Reports joint swelling, Reports limited range of motion and Denies neck pain Integumentary/Breasts Denies pruritus, Denies erythema, Denies rash and Denies wounds Neurologic Reports abnormal gait, Denies confusion, Denies loss of vision and Denies weakness Psychiatric Denies anxiety, Denies confusion, Denies depression, Denies homicidal ideation and Denies suicidal ideation Endocrine Denies palpitations Hematologic/Lymphatic Denies easy bruising Allergic/Immunologic Denies wheezing FOR[facility]LY [facility] Social History Smoking Status: Former smoker Exam Narrative Exam Narrative: GEN: 32-year-old patient in mild distress complaining of left foot pain. Chronically ill EYES: Pupils are equal, round, and reactive to light and accommodation. Extraoccular muscles are intact bilaterally. There is no subconjunctival hemorrhage or exudate. CHEST: Lungs are clear to auscultation bilaterally and free of wheezes, rales, or rhonchi. Heart rate is regular rhythm, there are no murmurs, clicks, rubs, or gallops. There is no chest wall tenderness. ABD: Abdomen is soft and nontender. There is no guarding or rebound. Bowel sounds are normal in all 4 quadrants. There is no mass or organomegaly. EXT: Pain and swelling over left lateral foot with some ecchymosis. This injury is isolated, closed and neurovascularly intact. Cap refill less than 2 sec, quite tender to palpation over lateral metatarsals SKIN: Warm, pink, and dry. No erythema or rash Initial Vital Signs Initial Vital Signs: Vital Signs Temperature 97.1 F L 05/12/18 06:25 Pulse Rate 74 05/12/18 06:25 Respiratory Rate 16 05/12/18 06:25 Blood Pressure 119/81 H 05/12/18 06:25 Pulse Oximetry 100 05/12/18 06:25 Procedures Orthopedic Splinting/Casting Injury #1: Lower Extremity Immobilizer: post-op shoe Course Orders Ordered: Discontinued Medications Oxycodone/Acetaminophen (Percocet 5/325) 2 tab PO NOW ONE Stop: 05/12/18 06:53 Last Admin: 05/12/18 07:02 Dose: 2 tab MDM - Extremity Injury (Lower) Medical Records Attestation: I reviewed the patient's medical records. Imaging Data Foot Xray: Attestation: I personally reviewed and interpreted this imaging study as follows: My impression: Left 4th and 5th metatarsal fractures Radiologist's impression: PROCEDURE: XR FOOT LT MIN 3V INDICATIONS: LEFT FOOT PAIN TECHNIQUE: 3 views of the foot were acquired. COMPARISON: [facility], , FOOT 3V LEFT, 09/13/2017, 13:06. FINDINGS: Bones: Displaced fractures of the distal fourth and fifth metatarsals noted. Fracture lucencies do not extend into the metatarsal-phalangeal joints. Soft tissues: No tibiotalar joint effusion. Achilles tendon appears normal. IMPRESSION: Fourth and fifth metatarsal fractures. Dictated by: April Martel MD, PhD on 05/12/2018 at 9:16 Approved by: April Martel MD, PhD on 05/12/2018 at 9:18 Discharge Plan Departure Patient Disposition: Home Clinical Impression: Fracture of foot Discharge Date/Time: 05/12/18 07:25 Interventions: ED Discharge Assessment Last Done: 05/12/18 07:24 Instructions: DI for Foot Fracture Activity Restrictions/Additional Instructions: *You have been diagnosed with [ left foot 4th and 5th metatarsal fractures ] *What to do: *Take medications as directed *Follow up with your orthopedist in 2-3 days, call for an appointment. Let them know you were seen in the Emergency Department and that we ask that you be seen in follow up *Return to ER if you should have any new, worsening or concerning symptoms , such as [ worsening pain, numbness, tingling or other] Prescriptions: No Action bupropion HCl [Wellbutrin XL] 150 MG tablet extended release 24 hr 150 mg PO QDAY Qty: 30 RF: 0 ondansetron 4 MG tablet,disintegrating 4 mg Sublingual Q6HP PRNQty: 14 RF: 0 ciprofloxacin HCl [Cipro] 500 MG tablet 750 mg PO QWEEK Qty: 0 RF: 0 sertraline 25 MG tablet 25 mg PO QDAY Qty: 0 RF: 0 lorazepam 1 MG tablet 1 mg PO BIDP PRNQty: 0 RF: 0 lactulose 20 GM/30 ML solution 20 gm PO BID Qty: 0 RF: 0 spironolactone 100 MG tablet 100 mg PO QDAY Qty: 0 RF: 0 cholecalciferol (vitamin D3) [Vitamin D3] 1,000 UNIT tablet 1,000 unit PO QDAY Qty: 0 RF: 0 trazodone 50 MG tablet 100 mg PO HS Qty: 0 RF: 0 ranitidine HCl 150 MG tablet 150 mg PO HS Qty: 0 RF: 0 amitriptyline 25 MG tablet 75 mg PO HS Qty: 0 RF: 0 furosemide 40 MG tablet 40 mg PO QDAY Qty: 30 RF: 0 potassium chloride 20 MEQ tablet,ER particles/crystals 20 meq PO QDAY Qty: 90 RF: 0 lorazepam [Ativan] 1 MG tablet 1 mg PO SEE INSTRUCTIONS Qty: 18 RF: 0 ondansetron [Zofran ODT] 4 MG tablet,disintegrating 4 mg Sublingual Q6HP PRNQty: 16 RF: 0 gabapentin 400 mg capsule 400 mg PO TID Qty: 20 RF: 0 hydrocodone-acetaminophen 5-325 mg tablet 1 tab PO Q4-6H PRN (Reason: pain) Qty: 14 RF: 0 Referrals: Roberto Carlos Sood MD [Primary Care Provider] - Adonis Pichardo MD [Physician] -
== END 2018-05-12 07:25 | disposition home or self-care (01) ==
PROVIDERS: Emergency Provider Emergency Medicine; PCP Internal Medicine
DX: S92.902S Unspecified fracture of left foot, sequela (principal)
CPT/HCPCS: 73630; 99282; 99283

== ENCOUNTER → 2018-05-26 08:54 | Outpatient (CLI) | payer OTHER, MEDICAID, SELFPAY ==
--- NOTE | 2018-05-26 | DI.MRI.S_ITS ---
PROCEDURE: MR HIP RT WO CON INDICATIONS: PAIN IN RIGHT HIP TECHNIQUE: Noncontrast coronal T1 spin echo and STIR through the bony pelvis. Coronal and axial T2 fast spin echo with fat saturation, sagittal T1 spin echo, and oblique axial T2 fast spin echo with fat saturation through the hip. COMPARISON: [facility], CR, XR HIP W PEL IF DONE RT 2V, 04/11/2018, 21:38. FINDINGS: Image quality: Excellent. Bones and joints: There are curvilinear parallel lines within the femoral heads bilaterally demonstrating T1 and T2 hyperintensity consistent with avascular necrosis. These also include subcortical components along the superior and axial articular surfaces in the right femoral head. No definite evidence of articular surface collapse. In addition, there is marked regional edema involving the proximal right femur including the femoral neck. No definite associated fracture line. There is bony prominence of the femoral head neck junction, right greater than left. A focal cyst is demonstrated at the right anterior femoral head-neck junction. There is patchy heterogeneous bone marrow signal intensity within the bony pelvis. In addition, there is subchondral edema medially within the right acetabulum. There is a moderate right joint effusion. The visualized lower lumbar spine appears normally aligned. Tendons and ligaments: The gluteus medius and minimus tendons appear intact, without associated muscle atrophy. The nearby proximal iliotibial band also appears intact. The iliopsoas tendon appears intact, without adjacent bursal fluid collections or evidence for impingement syndrome. The origin of the hamstring tendon is intact at the ischial tuberosity, as well as the associated sacrotuberous ligament. The straight and reflected heads of the rectus femoris muscle origin appear intact, as well as the conjoint tendon. The right ligamentum teres is attenuated in signal suggesting sequelae of a sprain or degeneration. Labrum and cartilage: The acetabular labrum appears grossly intact in the absence of intra-articular contrast. Cartilage surface of the femoral head demonstrates mild thickening superiorly. The alpha angle of the femur is increase in the right hip. Soft tissues: There is a small region of mild edema within the proximal vastus medialis muscle. There is also mild edema within the gluteus girma medially. Quadratus femoris muscle demonstrates no internal edema to suggest ischiofemoral impingement. The proximal sciatic neurovascular bundle appears normal adjacent to the hamstring tendons. No free pelvic fluid. Bladder wall thickness is normal. Genitourinary structures and bowel loops appear normal where visualized. IMPRESSION: 1. Findings consistent with avascular necrosis in the bilateral femoral heads, right greater than left, without evidence of associated articular surface collapse. There is associated extensive bone marrow edema within the proximal right femur. The differential includes reactive changes, infection, bone contusion, or transient osteoporosis of the hip. Recommend correlation clinically. 2. Moderate right joint effusion. 3. Heterogeneous appearance of the bone marrow in the pelvis is nonspecific but may reflect an infiltrative marrow process. Recommend hematologic correlation. 4. Subchondral edema within the right acetabulum likely represent sequelae of overlying chondral degeneration. 5. Bony prominence of the right femoral head-neck junction with an increased alpha angle and focal cystic change anteriorly. The findings are suggestive of femoral acetabular impingement. 6. Mild edema in the proximal vastus medialis muscle consistent with a small contusion, strain, or reactive changes. 7. Attenuation of the right ligamentum teres is consistent with sequelae of a sprain or degenerative change. Dictated by: Noe Thomas M.D. on 05/26/2018 at 14:33 Approved by: Noe Thomas M.D. on 05/26/2018 at 14:55
== END ==
PROVIDERS: PCP Internal Medicine; Visit Provider Physician Assistant
DX: M25.551 Pain in right hip (principal); M87.852 Other osteonecrosis, left femur; M87.851 Other osteonecrosis, right femur; M25.451 Effusion, right hip
CPT/HCPCS: 73721

== ENCOUNTER → 2018-06-09 10:28 | Outpatient (CLI) | payer OTHER, MEDICAID, SELFPAY ==
[2018-06-09 11:14] LABS: Add Manual Diff / Slide Review NO; Basophils Percent Auto 0.8 % (0-2); Eosinophils Percent Auto 0.7 % (2-4); Hematocrit 36.3 % (36-46); Lymphocytes Percent Auto 33.6 % (25-40); Mean Corpuscular HGB Conc 35.7 % (30-36); Mean Corpuscular Hemoglobin 34.9 PG (26-34); Mean Corpuscular Volume 97.9 fL (80-100); Monocytes Percent Auto 12.7 % (3-14); Neutrophils Absolute Auto 1200 /uL (3000-5900); Neutrophils Percent Auto 52.2 % (50-75); Platelet Count 175 X10^3/uL (150-400); Red Blood Cell Count 3.71 X10^6/uL (4.0-5.2); Red Cell Distribution Width 14.5 % (11.6-14.8); White Blood Cell Count 2.3 X10^3/uL (4.5-11.0)
[2018-06-09 11:40] LABS: Alanine Aminotransferase 17 IU/L (9-52); Albumin 4.4 g/dL (3.5-5.0); Albumin Globulin Ratio 1.3 (1.0-2.8); Alkaline Phosphatase 126 U/L (38-126); Aspartate Aminotransferase 36 IU/L (14-36); BUN Creatinine Ratio 6.7 (6-22); Bilirubin Total 0.7 mg/dL (0.2-1.3); Blood Urea Nitrogen 8 mg/dL (7-17); Calcium 9.8 mg/dL (8.4-10.2); Chloride 85 mmol/L (98-107); Estimated Glomerular Filt Rate 52.4 mL/min (>60); Globulin 3.4 g/dL (1.7-4.1); Glucose 105 mg/dL (70-100); HEMOLYSIS < 15 (0-50); Sodium 136 mmol/L (137-145); Total Protein 7.8 g/dL (6.3-8.2)
[2018-06-09 11:55] LABS: Carbon Dioxide 41 mmol/L (22-32)
== END ==
PROVIDERS: PCP Internal Medicine; Visit Provider Internal Medicine
DX: K70.31 Alcoholic cirrhosis of liver with ascites (principal); F10.288 Alcohol dependence with other alcohol-induced disorder; M87.062 Idiopathic aseptic necrosis of left tibia
CPT/HCPCS: 36415; 80053; 85025

== ENCOUNTER → 2018-06-15 13:37 | Outpatient (CLI) | payer OTHER, MEDICAID, SELFPAY ==
--- NOTE | 2018-06-15 | DI.RAD.S_ITS ---
This blank DEXA report has been sent in error by the PACS system. The correct and complete report will be forthcoming in 1-2 days. Thank you for your patience and understanding. Dictated by: April Martel MD, PhD on 06/16/2018 at 8:23 Approved by: April Martel MD, PhD on 06/16/2018 at 8:23
== END ==
PROVIDERS: PCP Internal Medicine; Visit Provider Internal Medicine
DX: M81.0 Age-related osteoporosis without current pathological fracture (principal)
CPT/HCPCS: 77080

== ENCOUNTER → 2018-07-02 16:27 | Outpatient (CLI) | payer OTHER, MEDICAID, SELFPAY ==
[2018-07-02 17:07] LABS: Add Manual Diff / Slide Review NO; Basophils Percent Auto 0.3 % (0-2); Eosinophils Percent Auto 0.6 % (2-4); Hematocrit 33.6 % (36-46); Hemoglobin 11.7 g/dL (12.0-16.0); Lymphocytes Percent Auto 30.2 % (25-40); Mean Corpuscular HGB Conc 34.8 % (30-36); Mean Corpuscular Volume 94.6 fL (80-100); Monocytes Percent Auto 13.8 % (3-14); Neutrophils Absolute Auto 2100 /uL (3000-5900); Neutrophils Percent Auto 55.1 % (50-75); Platelet Count 213 X10^3/uL (150-400); Red Blood Cell Count 3.55 X10^6/uL (4.0-5.2); Red Cell Distribution Width 13.9 % (11.6-14.8); White Blood Cell Count 3.8 X10^3/uL (4.5-11.0)
[2018-07-02 19:44] LABS: BUN Creatinine Ratio 8.5 (6-22); Blood Urea Nitrogen 11 mg/dL (7-17); Carbon Dioxide 39 mmol/L (22-32); Chloride 79 mmol/L (98-107); Estimated Glomerular Filt Rate 47.8 mL/min (>60); Sodium 135 mmol/L (137-145)
[2018-07-02 19:45] LABS: Alanine Aminotransferase 22 IU/L (9-52); Albumin 4.4 g/dL (3.5-5.0); Albumin Globulin Ratio 1.4 (1.0-2.8); Alkaline Phosphatase 126 U/L (38-126); Aspartate Aminotransferase 36 IU/L (14-36); Bilirubin Total 0.5 mg/dL (0.2-1.3); Globulin 3.2 g/dL (1.7-4.1); Glucose 88 mg/dL (70-100); Total Protein 7.6 g/dL (6.3-8.2)
[2018-07-02 19:46] LABS: HEMOLYSIS < 15 (0-50)
== END ==
PROVIDERS: Family Provider Family Medicine; PCP Internal Medicine; Visit Provider Internal Medicine
DX: K70.31 Alcoholic cirrhosis of liver with ascites (principal)
CPT/HCPCS: 36415; 80053; 85025

== ENCOUNTER → 2018-07-20 12:22 | Outpatient (CLI) | payer OTHER, MEDICAID, SELFPAY ==
--- NOTE | 2018-07-20 12:27 | DI.US.S_ITS ---
PROCEDURE: US ABDOMEN COMPLETE INDICATIONS: R UPPER QUADRANT PAIN / WEIGHT LOSS TECHNIQUE: Real-time scanning was performed of the abdominal and retroperitoneal organs, with image documentation. COMPARISON: [facility], US, ABDOMEN COMPLETE, 12/25/2016, 7:54. FINDINGS: Liver: Liver is normal in size and homogeneous in echotexture. Gallbladder: No gallstones identified. Normal gallbladder wall. No pericholecystic fluid. Negative sonographic Hahn sign. Biliary ducts: Intrahepatic bile ducts are non-dilated. Extrahepatic bile duct caliber measures 5.0 mm. Normal is 6-7 mm or less in diameter, or 10 mm or less post-cholecystectomy. Pancreas: Visualized portions of the pancreas are sonographically normal. Spleen: Spleen is normal in size and homogeneous in echotexture. Kidneys: Kidneys are normal in size and echotexture. Right kidney measures 9.4 cm long; left kidney measures 10.5 cm long. No hydronephrosis or nephrolithiasis. No solid masses. Aorta: Visualized aorta is normal in caliber at less than 3 cm. Iliacs: Proximal common iliac arteries are normal in caliber at less than 2.5 cm. IVC: Intrahepatic inferior vena cava is patent. Miscellaneous: No free abdominal fluid. The gastric fundus appears mildly prominent which may reflect decompressed state. IMPRESSION: No source for abdominal pain identified. Dictated by: [facility] Interpreted: Berny Lane MD on 07/20/2018 at 14:03 Approved by: Berny Lane M.D. on 07/21/2018 at 10:45
[2018-07-20 13:00] LABS: Add Manual Diff / Slide Review NO; Basophils Percent Auto 0.8 % (0-2); Eosinophils Percent Auto 0.2 % (2-4); Hematocrit 33.9 % (36-46); Hemoglobin 12.1 g/dL (12.0-16.0); Lymphocytes Percent Auto 46.6 % (25-40); Mean Corpuscular HGB Conc 35.9 % (30-36); Mean Corpuscular Hemoglobin 33.9 PG (26-34); Mean Corpuscular Volume 94.6 fL (80-100); Monocytes Percent Auto 18.3 % (3-14); Neutrophils Absolute Auto 800 /uL (3000-5900); Neutrophils Percent Auto 34.1 % (50-75); Platelet Count 229 X10^3/uL (150-400); Red Blood Cell Count 3.58 X10^6/uL (4.0-5.2); Red Cell Distribution Width 15.4 % (11.6-14.8); White Blood Cell Count 2.4 X10^3/uL (4.5-11.0)
[2018-07-20 13:08] LABS: Alanine Aminotransferase 28 IU/L (9-52); Albumin 4.2 g/dL (3.5-5.0); Albumin Globulin Ratio 1.3 (1.0-2.8); Alkaline Phosphatase 145 U/L (38-126); Aspartate Aminotransferase 35 IU/L (14-36); BUN Creatinine Ratio 13.8 (6-22); Bilirubin Total 0.7 mg/dL (0.2-1.3); Blood Urea Nitrogen 11 mg/dL (7-17); Estimated Glomerular Filt Rate > 60.0 mL/min (>60); Globulin 3.3 g/dL (1.7-4.1); Glucose 90 mg/dL (70-100); HEMOLYSIS < 15 (0-50); Sodium 135 mmol/L (137-145); Total Protein 7.5 g/dL (6.3-8.2)
[2018-07-20 13:22] LABS: Potassium 2.3 mmol/L (3.4-5.1)
[2018-07-20 13:23] LABS: Carbon Dioxide 48 mmol/L (22-32); Chloride 74 mmol/L (98-107)
[2018-07-20 13:37] LABS: Thyroid Stimulating Hormone 1.11 uIU/mL (0.47-4.68)
[2018-07-20 14:53] LABS: Free T3, Triiodothyronine Free 3.22 pg/mL (2.77-5.27); Free T4, Direct Thyroxine 1.07 ng/dL (0.78-2.19)
[2018-07-20 16:52] LABS: Vitamin D 25 Hydroxy (D3) 66.2 ng/mL (30.0-100.0)
[2018-07-22 12:51] LABS: Dehydroepiandrosterone Sulfate 7 mcg/dL (23-266)
== END ==
PROVIDERS: Family Provider Family Medicine; PCP Internal Medicine; Visit Provider Internal Medicine
DX: R10.11 Right upper quadrant pain (principal); R63.4 Abnormal weight loss; N18.9 Chronic kidney disease, unspecified; R53.83 Other fatigue; D64.9 Anemia, unspecified; E03.9 Hypothyroidism, unspecified; E55.9 Vitamin D deficiency, unspecified; E87.6 Hypokalemia
CPT/HCPCS: 36415; 76700; 80053; 82306; 82627; 82728; 83735; 84439; 84443; 84481; 85025

== ENCOUNTER 2018-07-23 11:43 | Emergency (ER) | payer OTHER, MEDICAID, SELFPAY ==
[2018-07-23 11:55] VITALS: BP 121/92; PULSE 100; RESP 16; TEMP 36.6; O2SAT 100
--- NOTE | 2018-07-23 12:24 | ED.DIZZY ---
HPI - Dizziness General Chief Complaint: Syncope Stated Complaint: Dizzy, nauseus, light headed Time Seen by Provider: 07/23/18 11:45 Source: patient and family Mode of arrival: ambulatory Limitations: no limitations History of Present Illness HPI Narrative: A 32-year-old female with longstanding history of severe alcoholism presents with a chief complaint generalized weakness with nausea and muscle cramps. She recently saw her primary care provider in the outpatient setting and had lab work done which noted a potassium of 2.3. She is chronically suffering low potassium due to nutritional deficiencies. She had her dose of potassium at home increased from 20 mEq twice daily to 40 mEq twice daily. She has ongoing cramps, nausea and generalized weakness. She admittedly started drinking again a few days ago after 1-2 months of sobriety. MD complaint: dizziness and lightheadedness Onset (ago): day(s) Timing: gradual onset Description: lightheadedness History of similar episodes: Yes History of trauma: No Severity: moderate Relieving factors: nothing Exacerbating factors: nothing Associated symptoms: nausea Related Data Home Medications Medication Instructions Recorded Confirmed lorazepam 1 mg PO BIDP PRN #0 09/13/17 07/23/18 sertraline 25 mg PO QDAY #0 09/13/17 07/23/18 cholecalciferol (vitamin D3) 1,000 unit PO QDAY #0 09/18/17 07/23/18 [Vitamin D3] lactulose 20 gm PO BID #0 09/18/17 07/23/18 spironolactone 50 mg PO BID #0 09/18/17 07/23/18 trazodone 100 mg PO BEDTIME #0 09/18/17 07/23/18 amitriptyline 100 mg PO HS #0 12/03/17 07/23/18 ranitidine HCl 150 mg PO HS #0 12/03/17 07/23/18 Blood Builder 1 cap PO DAILY 07/23/18 07/23/18 Buffered Vitamin C 1 tab PO DAILY 07/23/18 07/23/18 CoQ-10 1 cap PO DAILY 07/23/18 07/23/18 blue-green algae (Spirulina) 1 cap PO DAILY 07/23/18 07/23/18 ciprofloxacin HCl 1 tab PO QWEEK 07/23/18 07/23/18 gabapentin 300 mg PO QPM 07/23/18 07/23/18 potassium chloride 20 meq PO BID 07/23/18 07/23/18 Previous Rx's Medication Instructions Recorded bupropion HCl [Wellbutrin XL] 150 mg PO QDAY #30 tab 05/28/17 ondansetron [Zofran ODT] 4 mg SUBLINGUAL Q6HP PRN #16 odt 12/24/17 potassium chloride 20 meq PO BID #450 ml 07/23/18 Allergies Allergy/AdvReac Type Severity Reaction Status Date / Time No Known Allergies Allergy Uncoded 12/31/17 12:43 Review of Systems Review of Systems All systems reviewed & are unremarkable except as noted in HPI and below Constitutional Denies chills, Denies fever(s), Denies lethargy and Denies weakness Eyes Denies change in vision, Denies eye discharge, Denies irritation and Denies loss of vision ENT Ears, Nose, Mouth, and Throat: Denies change in voice, Denies neck pain and Denies sore throat Cardiovascular Denies chest pain, Denies irregular heart rhythm, Denies lightheadedness, Denies palpitations, Denies dyspnea, Denies dyspnea on exertion and Denies orthopnea Respiratory Denies cough, Denies dyspnea, Denies dyspnea on exertion and Denies wheezing Gastrointestinal Gastrointestinal: Denies abdominal pain, Denies change in bowel habits, Denies diarrhea, Denies nausea and Denies vomiting Genitourinary Denies hematuria, Denies flank pain, Denies urinary incontinence and Denies urinary urgency Musculoskeletal Denies neck pain Integumentary/Breasts Denies pruritus, Denies erythema, Denies rash and Denies wounds Neurologic Denies confusion, Denies loss of vision and Denies weakness Psychiatric Denies anxiety, Denies confusion, Denies depression, Denies homicidal ideation and Denies suicidal ideation Endocrine Denies palpitations Hematologic/Lymphatic Denies easy bruising Allergic/Immunologic Denies wheezing PFSH Social History Smoking Status: Former smoker Exam Narrative Exam Narrative: 32F resting comfortably, with occasional hand cramps Initial Vital Signs Initial Vital Signs: Vital Signs Temperature 97.8 F 07/23/18 11:55 Pulse Rate 100 H 07/23/18 11:55 Respiratory Rate 16 07/23/18 11:55 Blood Pressure 121/92 H 07/23/18 11:55 Pulse Oximetry 100 07/23/18 11:55 Const General: cooperative and well developed Nutritional Appearance: underweight Orientation: alert, awake, oriented x3 and not confused [facility] Head: normocephalic and atraumatic Ears: external ears normal and TM's normal bilaterally Nose: No nasal discharge Mouth: oral mucosae normal Teeth and gingiva: dentition normal Throat: tonsils normal and uvula midline Eyes General: appearance normal, both eyes and all related structures Eyelids: eyelids normal Conjunctivae: conjunctivae normal Sclera: sclerae normal Pupils: PERRL EOM: EOM intact bilaterally Neck Neck: normal visual inspection, trachea midline, No lymphadenopathy, No midline deformity and No JVD Lymphatic: No lymphedema Chest Chest: normal inspection of the chest Cardio Rate: regular rate Rhythm: regular rhythm Heart Sounds: no click, no gallops, no murmurs and no rubs Pulses: normal peripheral pulses GI Inspection: non-distended Palpation: soft, no hepatosplenomegaly, No guarding, No pulsatile mass and No tender Auscultation: normal bowel sounds Back/Spine/Pelvis Back: No CVA tenderness Cervical Spine: cervical ROM normal and No pain with cervical ROM Thoracic/Lumbar Spine: thoracic and lumbar spine normal to inspection Skin General: no rashes or lesions noted, No jaundice and No petechiae Neuro General: alert, oriented x3, gait normal and no focal motor deficits Speech: speech normal Course Orders Ordered: ED Orders 07/23/18 12:09 EKG-12 Lead Stat 07/23/18 12:20 Complete Blood Count AUTO DIFF Stat Comprehensive Metabolic Panel Stat Prothrombin Time INR Stat 07/23/18 13:08 EKG-12 Lead Stat 07/23/18 14:07 Urine Microscopic Stat Discontinued Medications Potassium Chloride 40 meq/ (Sodium Chloride) 520 mls @ 130 mls/hr IV NOW ONE Stop: 07/23/18 17:11 Last Admin: 07/23/18 13:39 Dose: 130 mls/hr Ondansetron HCl (Zofran) 4 mg IV NOW ONE Stop: 07/23/18 13:38 Last Admin: 07/23/18 13:38 Dose: 4 mg Potassium Chloride (Potassium Chloride) 40 meq PO NOW ONE Stop: 07/23/18 13:13 Last Admin: 07/23/18 13:38 Dose: 40 meq Consultations Consultation #1: I've spoken with patient's PCP whom is happy to see patient in the outpatient setting Vital Signs - 8 hr 07/23/18 11:55 07/23/18 12:29 07/23/18 14:10 Temperature 97.8 F Pulse Rate 100 H 85 80 Respiratory Rate 16 18 18 Blood Pressure 121/92 H Blood Pressure [Right Arm] 118/96 H 125/84 Pulse Oximetry 100 99 98 07/23/18 16:23 07/23/18 18:04 Temperature Pulse Rate 89 90 Respiratory Rate 18 19 Blood Pressure Blood Pressure [Right Arm] 130/84 112/74 Pulse Oximetry 100 100 MDM - Dizziness Lab Data Result diagrams: 07/23/18 12:20 07/23/18 12:20 Lab Results 07/23/18 07/23/18 07/23/18 Range/Units 12:20 12:20 12:20 WBC 3.1 L (4.5-11.0) X10^3/uL RBC 3.53 L (4.0-5.2) X10^6/uL Hgb 12.0 (12.0-16.0) g/dL Hct 34.2 L (36-46) % MCV 96.9 (80-100) fL MCH 34.0 (26-34) PG MCHC 35.1 (30-36) % RDW 15.8 H (11.6-14.8) % Plt Count 220 (150-400) X10^3/uL Neut % (Auto) 66.1 (50-75) % Lymph % (Auto) 20.3 L (25-40) % [place] % (Auto) 12.9 (3-14) % Eos % (Auto) 0.0 L (2-4) % Baso % (Auto) 0.7 (0-2) % Neut # (Auto) 2000 L (3472-0157) /uL PT 12.8 H (10.1-12.7) SECONDS INR 1.2 (0.9-1.3) Sodium 141 (137-145) mmol/L Potassium 2.9 L (3.4-5.1) mmol/L Chloride 87 L (98-107) mmol/L Carbon Dioxide 36 H (22-32) mmol/L BUN 11 (7-17) mg/dL Creatinine 0.80 (0.52-1.04) mg/dL Estimated GFR > 60.0 (>60) mL/min BUN/Creatinine Ratio 13.8 (6-22) Glucose 85 (70-100) mg/dL Calcium 9.3 (8.4-10.2) mg/dL Total Bilirubin 0.7 (0.2-1.3) mg/dL AST 42 H (14-36) IU/L ALT 19 (9-52) IU/L Alkaline Phosphatase 145 H (38-126) U/L Total Protein 7.5 (6.3-8.2) g/dL Albumin 4.3 (3.5-5.0) g/dL Globulin 3.2 (1.7-4.1) g/dL Albumin/Globulin Ratio 1.3 (1.0-2.8) Urine RBC (0-5/HPF) Urine WBC (0-5/HPF) Ur Squamous Epith Cells Amorphous Sediment Urine Bacteria (None) Hyaline Casts (None) Granular Casts (None) Urine Mucus (Negative) Ur Culture Indicated? Micro UA Comment 07/23/18 Range/Units 14:07 WBC (4.5-11.0) X10^3/uL RBC (4.0-5.2) X10^6/uL Hgb (12.0-16.0) g/dL Hct (36-46) % MCV (80-100) fL MCH (26-34) PG MCHC (30-36) % RDW (11.6-14.8) % Plt Count (150-400) X10^3/uL Neut % (Auto) (50-75) % Lymph % (Auto) (25-40) % [place] % (Auto) (3-14) % Eos % (Auto) (2-4) % Baso % (Auto) (0-2) % Neut # (Auto) (0381-5462) /uL PT (10.1-12.7) SECONDS INR (0.9-1.3) Sodium (137-145) mmol/L Potassium (3.4-5.1) mmol/L Chloride (98-107) mmol/L Carbon Dioxide (22-32) mmol/L BUN (7-17) mg/dL Creatinine (0.52-1.04) mg/dL Estimated GFR (>60) mL/min BUN/Creatinine Ratio (6-22) Glucose (70-100) mg/dL Calcium (8.4-10.2) mg/dL Total Bilirubin (0.2-1.3) mg/dL AST (14-36) IU/L ALT (9-52) IU/L Alkaline Phosphatase (38-126) U/L Total Protein (6.3-8.2) g/dL Albumin (3.5-5.0) g/dL Globulin (1.7-4.1) g/dL Albumin/Globulin Ratio (1.0-2.8) Urine RBC None seen (0-5/HPF) Urine WBC 1-5/hpf (0-5/HPF) Ur Squamous Epith Cells 1-5 /hpf Amorphous Sediment 1+ Urine Bacteria None seen (None) Hyaline Casts 5-10/lpf (None) Granular Casts 0-1/lpf (None) Urine Mucus 1+ H (Negative) Ur Culture Indicated? Cult not indicated Micro UA Comment Not Reportable Point of Care Testing Test Results Negative Urine Dip Bedside Urine Glucose Negative Bedside Urine Bilirubin - Negative Bedside Urine Ketone + 15 Urine Specific [place] 1.010 Bedside Urine Occult Blood - Negative Bedside Urine pH 9.0 Bedside Urine Protein + 30 Bedside Urine Urobilinogen - Negative Bedside Urine Nitrite - Negative Bedside Urine Leukocytes - Negative Esterase Discharge Plan Departure Patient Disposition: Home Clinical Impression: Acute hypokalemia Instructions: DI for Hypokalemia Activity Restrictions/Additional Instructions: *You have been diagnosed with [ acute hypokalemia ] *What to do: *Take medications as directed: At your request I switched you to liquid potassium. The dose I wrote for is the increasd dose that Dr. Sood asked you to take a few days ago. *Follow up with your primary care provider in 2-3 days, call for an appointment. Let them know you were seen in the Emergency Department and that we ask that you be seen in follow up *Return to ER if you should have any new, worsening or concerning symptoms Prescriptions: New potassium chloride 20 mEq/15 mL liquid 20 meq PO BID Qty: 450 RF: 0 No Action bupropion HCl [Wellbutrin XL] 150 MG tablet extended release 24 hr 150 mg PO QDAY Qty: 30 RF: 0 sertraline 25 MG tablet 25 mg PO QDAY Qty: 0 RF: 0 lorazepam 1 MG tablet 1 mg PO BIDP PRN (Reason: Anxiety) Qty: 0 RF: 0 lactulose 20 GM/30 ML solution 20 gm PO BID Qty: 0 RF: 0 spironolactone 100 MG tablet 50 mg PO BID Qty: 0 RF: 0 cholecalciferol (vitamin D3) [Vitamin D3] 1,000 UNIT tablet 1,000 unit PO QDAY Qty: 0 RF: 0 trazodone 50 MG tablet 100 mg PO BEDTIME Qty: 0 RF: 0 ranitidine HCl 150 MG tablet 150 mg PO HS Qty: 0 RF: 0 amitriptyline 25 MG tablet 100 mg PO HS Qty: 0 RF: 0 ondansetron [Zofran ODT] 4 MG tablet,disintegrating 4 mg Sublingual Q6HP PRNQty: 16 RF: 0 ciprofloxacin HCl 500 mg tablet 1 tab PO QWEEK RF: 0 gabapentin 300 mg capsule 300 mg PO QPM RF: 0 potassium chloride 20 MEQ tablet,ER particles/crystals 20 meq PO BID RF: 0 Blood Builder capsule 1 cap PO DAILY RF: 0 Buffered Vitamin C 1 tab PO DAILY RF: 0 CoQ-10 1 cap PO DAILY RF: 0 blue-green algae (Spirulina) 1 cap PO DAILY RF: 0 Referrals: Roberto Carlos Sood MD [Primary Care Provider] -
[2018-07-23 12:29] VITALS: BP 118/96; PULSE 85; RESP 18; O2SAT 99
[2018-07-23 12:38] LABS: Add Manual Diff / Slide Review NO; Basophils Percent Auto 0.7 % (0-2); Hematocrit 34.2 % (36-46); Lymphocytes Percent Auto 20.3 % (25-40); Mean Corpuscular HGB Conc 35.1 % (30-36); Mean Corpuscular Volume 96.9 fL (80-100); Monocytes Percent Auto 12.9 % (3-14); Neutrophils Absolute Auto 2000 /uL (3000-5900); Neutrophils Percent Auto 66.1 % (50-75); Platelet Count 220 X10^3/uL (150-400); Red Blood Cell Count 3.53 X10^6/uL (4.0-5.2); Red Cell Distribution Width 15.8 % (11.6-14.8); White Blood Cell Count 3.1 X10^3/uL (4.5-11.0)
[2018-07-23 12:43] LABS: INR 1.2 (0.9-1.3); Prothrombin Time 12.8 SECONDS (10.1-12.7)
[2018-07-23 12:49] LABS: Alanine Aminotransferase 19 IU/L (9-52); Albumin 4.3 g/dL (3.5-5.0); Albumin Globulin Ratio 1.3 (1.0-2.8); Alkaline Phosphatase 145 U/L (38-126); Aspartate Aminotransferase 42 IU/L (14-36); BUN Creatinine Ratio 13.8 (6-22); Bilirubin Total 0.7 mg/dL (0.2-1.3); Blood Urea Nitrogen 11 mg/dL (7-17); Calcium 9.3 mg/dL (8.4-10.2); Carbon Dioxide 36 mmol/L (22-32); Chloride 87 mmol/L (98-107); Estimated Glomerular Filt Rate > 60.0 mL/min (>60); Globulin 3.2 g/dL (1.7-4.1); Glucose 85 mg/dL (70-100); HEMOLYSIS < 15 (0-50); Potassium 2.9 mmol/L (3.4-5.1); Sodium 141 mmol/L (137-145); Total Protein 7.5 g/dL (6.3-8.2)
[2018-07-23] MEDS: ONDANSETRON 4 MG/2 ML INJ IV (13:38)
[2018-07-23] MEDS: POTASSIUM CHLORIDE 20 MEQ/15 ML UDC 40 MEQ PO (13:38)
[2018-07-23] MEDS: POTASSIUM CHLORIDE 40 MEQ in SODIUM CHLORIDE 0.9% 500 ML 130 ML IV (13:39)
--- NOTE | 2018-07-23 14:06 | PC.NURSE ---
pt went into a brief episode of aflutter. pt was not shaking. pt complains of cramping in her left hand. ekg done
[2018-07-23 14:10] VITALS: BP 125/84; PULSE 80; RESP 18; O2SAT 98
[2018-07-23 14:25] LABS: Bacteria Urine None Seen; RBC Urine None Seen (0-5/HPF)
[2018-07-23 14:43] LABS: Amorphous Sediment Urine 1+; Granular Casts Urine 0-1/LPF; Hyaline Casts Urine 5-10/LPF; Mucus Urine 1+ (Negative); Squamous Epithelial Cell Urine 1-5 /HPF; WBC Urine 1-5/HPF (0-5/HPF)
[2018-07-23 14:44] LABS: Culture Indicated Urine Cult Not Indicated
[2018-07-23 16:23] VITALS: BP 130/84; PULSE 89; RESP 18; O2SAT 100
[2018-07-23 18:04] VITALS: BP 112/74; PULSE 90; RESP 19; O2SAT 100
== END 2018-07-23 18:55 | disposition home or self-care (01) ==
PROVIDERS: Emergency Provider Emergency Medicine; PCP Internal Medicine
DX: E87.6 Hypokalemia (principal); R42 Dizziness and giddiness
CPT/HCPCS: 36591; 80053; 81003; 81015; 81025; 85025; 85610; 93005; 96365; 96366; 96375; 99283; 99284; J2405; J3480

== ENCOUNTER → 2018-07-27 14:48 | Outpatient (CLI) | payer OTHER, MEDICAID, SELFPAY ==
[2018-07-27 15:39] LABS: Add Manual Diff / Slide Review NO; Basophils Percent Auto 0.6 % (0-2); Eosinophils Percent Auto 0.7 % (2-4); Hematocrit 30.9 % (36-46); Hemoglobin 11.1 g/dL (12.0-16.0); Lymphocytes Percent Auto 41.9 % (25-40); Mean Corpuscular HGB Conc 35.8 % (30-36); Mean Corpuscular Hemoglobin 35.5 PG (26-34); Mean Corpuscular Volume 99.2 fL (80-100); Monocytes Percent Auto 13.4 % (3-14); Neutrophils Absolute Auto 900 /uL (3000-5900); Neutrophils Percent Auto 43.4 % (50-75); Platelet Count 167 X10^3/uL (150-400); Red Blood Cell Count 3.12 X10^6/uL (4.0-5.2); Red Cell Distribution Width 16.3 % (11.6-14.8); White Blood Cell Count 2.1 X10^3/uL (4.5-11.0)
[2018-07-27 15:56] LABS: Alanine Aminotransferase 24 IU/L (9-52); Albumin 3.6 g/dL (3.5-5.0); Albumin Globulin Ratio 1.2 (1.0-2.8); Alkaline Phosphatase 105 U/L (38-126); Aspartate Aminotransferase 30 IU/L (14-36); BUN Creatinine Ratio 13.8 (6-22); Bilirubin Total 0.5 mg/dL (0.2-1.3); Blood Urea Nitrogen 11 mg/dL (7-17); Calcium 9.1 mg/dL (8.4-10.2); Chloride 86 mmol/L (98-107); Estimated Glomerular Filt Rate > 60.0 mL/min (>60); Glucose 82 mg/dL (70-100); HEMOLYSIS < 15 (0-50); Potassium 2.8 mmol/L (3.4-5.1); Sodium 137 mmol/L (137-145); Total Protein 6.6 g/dL (6.3-8.2)
[2018-07-27 16:02] LABS: Carbon Dioxide 39 mmol/L (22-32)
== END ==
PROVIDERS: Family Provider Internal Medicine; PCP Internal Medicine; Visit Provider Family Medicine
DX: E87.6 Hypokalemia (principal)
CPT/HCPCS: 36415; 80053; 85025

== ENCOUNTER → 2018-08-03 14:03 | Outpatient (CLI) | payer OTHER, MEDICAID, SELFPAY ==
[2018-08-03 14:31] LABS: Add Manual Diff / Slide Review NO; Basophils Percent Auto 0.4 % (0-2); Eosinophils Percent Auto 0.2 % (2-4); Hematocrit 32.9 % (36-46); Hemoglobin 11.6 g/dL (12.0-16.0); Lymphocytes Percent Auto 31.4 % (25-40); Mean Corpuscular HGB Conc 35.2 % (30-36); Mean Corpuscular Hemoglobin 35.4 PG (26-34); Mean Corpuscular Volume 100.4 fL (80-100); Monocytes Percent Auto 13.5 % (3-14); Neutrophils Absolute Auto 1500 /uL (3000-5900); Neutrophils Percent Auto 54.5 % (50-75); Platelet Count 276 X10^3/uL (150-400); Red Blood Cell Count 3.28 X10^6/uL (4.0-5.2); Red Cell Distribution Width 16.7 % (11.6-14.8); White Blood Cell Count 2.7 X10^3/uL (4.5-11.0)
[2018-08-03 15:15] LABS: Alanine Aminotransferase 23 IU/L (9-52); Albumin 3.8 g/dL (3.5-5.0); Albumin Globulin Ratio 1.2 (1.0-2.8); Alkaline Phosphatase 123 U/L (38-126); Aspartate Aminotransferase 46 IU/L (14-36); BUN Creatinine Ratio 13.8 (6-22); Bilirubin Total 0.4 mg/dL (0.2-1.3); Blood Urea Nitrogen 11 mg/dL (7-17); Calcium 9.4 mg/dL (8.4-10.2); Carbon Dioxide 37 mmol/L (22-32); Chloride 93 mmol/L (98-107); Estimated Glomerular Filt Rate > 60.0 mL/min (>60); Globulin 3.2 g/dL (1.7-4.1); Glucose 85 mg/dL (70-100); HEMOLYSIS 28 (0-50); Magnesium 2.1 mg/dL (1.6-2.3); Potassium 4.1 mmol/L (3.4-5.1); Sodium 140 mmol/L (137-145)
== END ==
PROVIDERS: Family Provider Internal Medicine; PCP Internal Medicine; Visit Provider Family Medicine
DX: E87.6 Hypokalemia (principal); M81.0 Age-related osteoporosis without current pathological fracture; K70.31 Alcoholic cirrhosis of liver with ascites
CPT/HCPCS: 36415; 80053; 83735; 85025

== ENCOUNTER → 2018-08-10 11:30 | Outpatient (CLI) | payer OTHER, MEDICAID, SELFPAY ==
[2018-08-10 12:33] LABS: Add Manual Diff / Slide Review NO; Basophils Percent Auto 0.6 % (0-2); Eosinophils Percent Auto 0.3 % (2-4); Hematocrit 35.3 % (36-46); Hemoglobin 12.4 g/dL (12.0-16.0); Lymphocytes Percent Auto 37.2 % (25-40); Mean Corpuscular HGB Conc 35.1 % (30-36); Mean Corpuscular Hemoglobin 34.8 PG (26-34); Mean Corpuscular Volume 99.1 fL (80-100); Monocytes Percent Auto 12.1 % (3-14); Neutrophils Absolute Auto 1300 /uL (3000-5900); Neutrophils Percent Auto 49.8 % (50-75); Platelet Count 309 X10^3/uL (150-400); Red Blood Cell Count 3.56 X10^6/uL (4.0-5.2); Red Cell Distribution Width 15.8 % (11.6-14.8); White Blood Cell Count 2.7 X10^3/uL (4.5-11.0)
[2018-08-10 13:46] LABS: Alanine Aminotransferase 24 IU/L (9-52); Albumin 4.1 g/dL (3.5-5.0); Albumin Globulin Ratio 1.1 (1.0-2.8); Alkaline Phosphatase 174 U/L (38-126); Aspartate Aminotransferase 49 IU/L (14-36); BUN Creatinine Ratio 8.9 (6-22); Bilirubin Total 0.6 mg/dL (0.2-1.3); Blood Urea Nitrogen 8 mg/dL (7-17); Calcium 9.4 mg/dL (8.4-10.2); Chloride 83 mmol/L (98-107); Estimated Glomerular Filt Rate > 60.0 mL/min (>60); Globulin 3.7 g/dL (1.7-4.1); Glucose 107 mg/dL (70-100); HEMOLYSIS < 15 (0-50); Magnesium 2.2 mg/dL (1.6-2.3); Sodium 135 mmol/L (137-145); Total Protein 7.8 g/dL (6.3-8.2)
[2018-08-10 13:52] LABS: Carbon Dioxide 39 mmol/L (22-32)
[2018-08-10 14:02] LABS: Potassium 2.5 mmol/L (3.4-5.1)
== END ==
PROVIDERS: Family Provider Internal Medicine; PCP Internal Medicine; Visit Provider Family Medicine
DX: M81.0 Age-related osteoporosis without current pathological fracture (principal); K70.31 Alcoholic cirrhosis of liver with ascites; E78.6 Lipoprotein deficiency
CPT/HCPCS: 36415; 80053; 83735; 85025

== ENCOUNTER → 2018-08-11 11:06 | Outpatient (CLI) | payer OTHER, MEDICAID, SELFPAY ==
--- NOTE | 2018-08-11 | DI.RAD.S_ITS ---
PROCEDURE: XR SHOULDER RT MIN 2V INDICATIONS: SHOULDER PAIN TECHNIQUE: 3 views of the shoulder were acquired. COMPARISON: [facility], , CHEST 1 VIEW, 06/03/2017, 1:24. [facility], CR, XR SHOULDER LT MIN 2V, 08/11/2018, 11:39. FINDINGS: Bones: No fractures or dislocations. Mild irregularity can be seen involving the subarticular region of the humeral head. Visualized ribs appear intact. Soft tissues: No suspicious soft tissue calcifications. The visualized lung demonstrates an unremarkable appearance. IMPRESSION: Mild bony irregularity can be seen involving the subarticular region of the humeral head. If it would be helpful for clinical management decision making, please consider a dedicated MRI for further evaluation (assuming that there is no contraindication). Dictated by: Sj Reyes M.D. on 08/11/2018 at 11:29 Approved by: Sj Reyes M.D. on 08/11/2018 at 11:31
--- NOTE | 2018-08-11 | DI.RAD.S_ITS ---
PROCEDURE: XR SHOULDER LT MIN 2V INDICATIONS: SHOULDER PAIN TECHNIQUE: 3 views of the shoulder were acquired. COMPARISON: None. FINDINGS: Bones: No fractures or dislocations. No suspicious bony lesions. Visualized ribs appear intact. Mild acromioclavicular degenerative change is present. There is a high riding appearance of the left humeral head. Soft tissues: No suspicious soft tissue calcifications. IMPRESSION: 1. No visualized acute fracture or dislocation. However, if clinical concern and/or pain persist, short interval imaging followup in 7-10 days is recommended, as occult injury cannot be definitively excluded. 2. High riding appearance of the humeral head, which can be indicative of rotator cuff pathology. Dictated by: Lissy Fuentes M.D. on 08/11/2018 at 11:59 Approved by: Lissy Fuentes M.D. on 08/11/2018 at 12:01
[2018-08-11 12:01] LABS: Add Manual Diff / Slide Review NO; Basophils Percent Auto 0.5 % (0-2); Eosinophils Percent Auto 0.5 % (2-4); Hematocrit 33.9 % (36-46); Hemoglobin 11.8 g/dL (12.0-16.0); Lymphocytes Percent Auto 43.7 % (25-40); Mean Corpuscular HGB Conc 34.9 % (30-36); Mean Corpuscular Hemoglobin 35.1 PG (26-34); Mean Corpuscular Volume 100.6 fL (80-100); Monocytes Percent Auto 14.7 % (3-14); Neutrophils Absolute Auto 800 /uL (3000-5900); Neutrophils Percent Auto 40.6 % (50-75); Platelet Count 256 X10^3/uL (150-400); Red Blood Cell Count 3.37 X10^6/uL (4.0-5.2); Red Cell Distribution Width 16.4 % (11.6-14.8); White Blood Cell Count 2.1 X10^3/uL (4.5-11.0)
[2018-08-11 12:18] LABS: Alanine Aminotransferase 28 IU/L (9-52); Albumin 3.8 g/dL (3.5-5.0); Albumin Globulin Ratio 1.1 (1.0-2.8); Alkaline Phosphatase 151 U/L (38-126); Aspartate Aminotransferase 41 IU/L (14-36); BUN Creatinine Ratio 7.5 (6-22); Bilirubin Total 0.3 mg/dL (0.2-1.3); Blood Urea Nitrogen 6 mg/dL (7-17); Calcium 9.4 mg/dL (8.4-10.2); Carbon Dioxide 39 mmol/L (22-32); Chloride 90 mmol/L (98-107); Estimated Glomerular Filt Rate > 60.0 mL/min (>60); Globulin 3.4 g/dL (1.7-4.1); Glucose 91 mg/dL (70-100); HEMOLYSIS < 15 (0-50); Potassium 3.7 mmol/L (3.4-5.1); Sodium 139 mmol/L (137-145); Total Protein 7.2 g/dL (6.3-8.2)
== END ==
PROVIDERS: Family Provider Internal Medicine; PCP Internal Medicine; Visit Provider Family Medicine
DX: M25.511 Pain in right shoulder (principal); M25.512 Pain in left shoulder; E87.6 Hypokalemia
CPT/HCPCS: 36415; 73030; 80053; 85025

== ENCOUNTER → 2018-08-17 13:49 | Outpatient (CLI) | payer OTHER, MEDICAID, SELFPAY ==
[2018-08-17 14:28] LABS: Add Manual Diff / Slide Review NO; Basophils Percent Auto 0.6 % (0-2); Eosinophils Percent Auto 0.3 % (2-4); Hematocrit 31.3 % (36-46); Lymphocytes Percent Auto 40.7 % (25-40); Mean Corpuscular HGB Conc 35.2 % (30-36); Mean Corpuscular Hemoglobin 35.3 PG (26-34); Mean Corpuscular Volume 100.1 fL (80-100); Monocytes Percent Auto 11.3 % (3-14); Neutrophils Absolute Auto 1100 /uL (3000-5900); Neutrophils Percent Auto 47.1 % (50-75); Platelet Count 188 X10^3/uL (150-400); Red Blood Cell Count 3.12 X10^6/uL (4.0-5.2); Red Cell Distribution Width 16.3 % (11.6-14.8); White Blood Cell Count 2.3 X10^3/uL (4.5-11.0)
[2018-08-17 14:49] LABS: Alanine Aminotransferase 22 IU/L (9-52); Albumin 3.4 g/dL (3.5-5.0); Albumin Globulin Ratio 1.1 (1.0-2.8); Alkaline Phosphatase 157 U/L (38-126); Aspartate Aminotransferase 36 IU/L (14-36); Bilirubin Total 0.3 mg/dL (0.2-1.3); Blood Urea Nitrogen 9 mg/dL (7-17); Calcium 8.7 mg/dL (8.4-10.2); Carbon Dioxide 36 mmol/L (22-32); Chloride 93 mmol/L (98-107); Estimated Glomerular Filt Rate > 60.0 mL/min (>60); Globulin 3.1 g/dL (1.7-4.1); Glucose 126 mg/dL (70-100); HEMOLYSIS < 15 (0-50); Potassium 3.2 mmol/L (3.4-5.1); Sodium 138 mmol/L (137-145); Total Protein 6.5 g/dL (6.3-8.2)
== END ==
PROVIDERS: Family Provider Internal Medicine; PCP Internal Medicine; Visit Provider Family Medicine
DX: E87.6 Hypokalemia (principal)
CPT/HCPCS: 36415; 80053; 85025

== ENCOUNTER → 2018-08-19 11:49 | Outpatient (CLI) | payer OTHER, MEDICAID, SELFPAY ==
[2018-08-19 12:21] LABS: Add Manual Diff / Slide Review NO; Basophils Percent Auto 0.8 % (0-2); Eosinophils Percent Auto 0.5 % (2-4); Hematocrit 33.2 % (36-46); Hemoglobin 11.7 g/dL (12.0-16.0); Lymphocytes Percent Auto 33.1 % (25-40); Mean Corpuscular HGB Conc 35.3 % (30-36); Mean Corpuscular Hemoglobin 35.7 PG (26-34); Mean Corpuscular Volume 101.2 fL (80-100); Monocytes Percent Auto 12.4 % (3-14); Neutrophils Absolute Auto 1400 /uL (3000-5900); Neutrophils Percent Auto 53.2 % (50-75); Platelet Count 197 X10^3/uL (150-400); Red Blood Cell Count 3.28 X10^6/uL (4.0-5.2); Red Cell Distribution Width 16.8 % (11.6-14.8); White Blood Cell Count 2.7 X10^3/uL (4.5-11.0)
[2018-08-19 12:50] LABS: Alanine Aminotransferase 24 IU/L (9-52); Albumin 3.3 g/dL (3.5-5.0); Albumin Globulin Ratio 1.1 (1.0-2.8); Alkaline Phosphatase 139 U/L (38-126); Aspartate Aminotransferase 44 IU/L (14-36); BUN Creatinine Ratio 11.3 (6-22); Bilirubin Total 0.3 mg/dL (0.2-1.3); Blood Urea Nitrogen 9 mg/dL (7-17); Carbon Dioxide 33 mmol/L (22-32); Chloride 96 mmol/L (98-107); Estimated Glomerular Filt Rate > 60.0 mL/min (>60); Globulin 3.1 g/dL (1.7-4.1); Glucose 79 mg/dL (70-100); HEMOLYSIS < 15 (0-50); Magnesium 2.1 mg/dL (1.6-2.3); Potassium 4.2 mmol/L (3.4-5.1); Sodium 139 mmol/L (137-145); Total Protein 6.4 g/dL (6.3-8.2)
== END ==
PROVIDERS: PCP Internal Medicine; Visit Provider Internal Medicine
DX: M81.0 Age-related osteoporosis without current pathological fracture (principal); K70.31 Alcoholic cirrhosis of liver with ascites
CPT/HCPCS: 36415; 80053; 83735; 85025

== ENCOUNTER → 2018-08-24 09:12 | Outpatient (CLI) | payer OTHER, MEDICAID, SELFPAY ==
[2018-08-24 09:50] LABS: Add Manual Diff / Slide Review NO; Basophils Percent Auto 0.5 % (0-2); Eosinophils Percent Auto 0.6 % (2-4); Hematocrit 38.9 % (36-46); Hemoglobin 13.4 g/dL (12.0-16.0); Lymphocytes Percent Auto 38.7 % (25-40); Mean Corpuscular HGB Conc 34.5 % (30-36); Mean Corpuscular Hemoglobin 35.2 PG (26-34); Monocytes Percent Auto 12.1 % (3-14); Neutrophils Absolute Auto 1000 /uL (3000-5900); Neutrophils Percent Auto 48.1 % (50-75); Platelet Count 231 X10^3/uL (150-400); Red Blood Cell Count 3.82 X10^6/uL (4.0-5.2); Red Cell Distribution Width 16.2 % (11.6-14.8); White Blood Cell Count 2.1 X10^3/uL (4.5-11.0)
[2018-08-24 10:40] LABS: Alanine Aminotransferase 19 IU/L (9-52); Albumin 3.8 g/dL (3.5-5.0); Alkaline Phosphatase 164 U/L (38-126); Aspartate Aminotransferase 40 IU/L (14-36); Bilirubin Total 0.4 mg/dL (0.2-1.3); Blood Urea Nitrogen 8 mg/dL (7-17); Calcium 9.6 mg/dL (8.4-10.2); Carbon Dioxide 38 mmol/L (22-32); Chloride 90 mmol/L (98-107); Estimated Glomerular Filt Rate > 60.0 mL/min (>60); Globulin 3.7 g/dL (1.7-4.1); Glucose 141 mg/dL (70-100); HEMOLYSIS < 15 (0-50); Potassium 3.3 mmol/L (3.4-5.1); Sodium 137 mmol/L (137-145); Total Protein 7.5 g/dL (6.3-8.2)
== END ==
PROVIDERS: Family Provider Internal Medicine; PCP Internal Medicine; Visit Provider Family Medicine
DX: E87.6 Hypokalemia (principal)
CPT/HCPCS: 36415; 80053; 85025

== ENCOUNTER → 2018-08-26 09:51 | Outpatient (CLI) | payer OTHER, MEDICAID, SELFPAY ==
[2018-08-26 10:23] LABS: Add Manual Diff / Slide Review NO; Basophils Percent Auto 0.7 % (0-2); Eosinophils Percent Auto 0.5 % (2-4); Hemoglobin 12.6 g/dL (12.0-16.0); Lymphocytes Percent Auto 34.2 % (25-40); Mean Corpuscular Hemoglobin 34.8 PG (26-34); Mean Corpuscular Volume 102.3 fL (80-100); Monocytes Percent Auto 12.7 % (3-14); Neutrophils Absolute Auto 1400 /uL (3000-5900); Neutrophils Percent Auto 51.9 % (50-75); Platelet Count 231 X10^3/uL (150-400); Red Blood Cell Count 3.61 X10^6/uL (4.0-5.2); Red Cell Distribution Width 16.4 % (11.6-14.8); White Blood Cell Count 2.8 X10^3/uL (4.5-11.0)
[2018-08-26 10:54] LABS: Alanine Aminotransferase 25 IU/L (9-52); Albumin 3.6 g/dL (3.5-5.0); Alkaline Phosphatase 147 U/L (38-126); Aspartate Aminotransferase 38 IU/L (14-36); Bilirubin Total 0.4 mg/dL (0.2-1.3); Blood Urea Nitrogen 11 mg/dL (7-17); Calcium 9.3 mg/dL (8.4-10.2); Carbon Dioxide 39 mmol/L (22-32); Chloride 90 mmol/L (98-107); Estimated Glomerular Filt Rate > 60.0 mL/min (>60); Globulin 3.6 g/dL (1.7-4.1); Glucose 114 mg/dL (70-100); HEMOLYSIS < 15 (0-50); Potassium 3.4 mmol/L (3.4-5.1); Sodium 138 mmol/L (137-145); Total Protein 7.2 g/dL (6.3-8.2)
== END ==
PROVIDERS: Family Provider Internal Medicine; PCP Internal Medicine; Visit Provider Family Medicine
DX: E87.6 Hypokalemia (principal)
CPT/HCPCS: 36415; 80053; 85025

== ENCOUNTER → 2018-08-31 16:13 | Outpatient (CLI) | payer OTHER, MEDICAID, SELFPAY ==
[2018-08-31 17:02] LABS: Add Manual Diff / Slide Review NO; Basophils Percent Auto 0.7 % (0-2); Eosinophils Percent Auto 0.1 % (2-4); Hemoglobin 12.8 g/dL (12.0-16.0); Lymphocytes Percent Auto 37.8 % (25-40); Mean Corpuscular HGB Conc 35.5 % (30-36); Mean Corpuscular Hemoglobin 34.9 PG (26-34); Mean Corpuscular Volume 98.4 fL (80-100); Monocytes Percent Auto 13.1 % (3-14); Neutrophils Absolute Auto 1600 /uL (3000-5900); Neutrophils Percent Auto 48.3 % (50-75); Platelet Count 276 X10^3/uL (150-400); Red Blood Cell Count 3.65 X10^6/uL (4.0-5.2); Red Cell Distribution Width 16.4 % (11.6-14.8); White Blood Cell Count 3.3 X10^3/uL (4.5-11.0)
[2018-08-31 18:17] LABS: Alanine Aminotransferase 23 IU/L (9-52); Albumin 3.5 g/dL (3.5-5.0); Albumin Globulin Ratio 1.1 (1.0-2.8); Alkaline Phosphatase 194 U/L (38-126); Aspartate Aminotransferase 59 IU/L (14-36); BUN Creatinine Ratio 11.3 (6-22); Bilirubin Total 0.3 mg/dL (0.2-1.3); Blood Urea Nitrogen 9 mg/dL (7-17); Calcium 9.2 mg/dL (8.4-10.2); Chloride 81 mmol/L (98-107); Estimated Glomerular Filt Rate > 60.0 mL/min (>60); Globulin 3.2 g/dL (1.7-4.1); Glucose 115 mg/dL (70-100); HEMOLYSIS < 15 (0-50); Magnesium 2.1 mg/dL (1.6-2.3); Sodium 133 mmol/L (137-145); Total Protein 6.7 g/dL (6.3-8.2)
[2018-08-31 19:19] LABS: Potassium 2.4 mmol/L (3.4-5.1)
[2018-08-31 19:20] LABS: Carbon Dioxide 43 mmol/L (22-32)
--- NOTE | 2018-08-31 20:45 | ED.RECABL ---
HPI - Recheck/Abnormal Lab/Rx History of Present Illness HPI narrative: Patient not seen in department. Lab came to ER. Patient had critical potassium was 2.4. Lab had been unable to contact primary care provider Dr. Sood or anyone from there office. They tried the office number that is available as well as the hospitalist to is not covering the office. We also tried the office supervisor agricultural education number which was was not working. As patient's lab was 2.4 which is a critical level patient was contacted via phone. Patient's chart was reviewed from last visit and discussed that she should come in for evaluation and replacement of her potassium. She states this is been a chronic problem, she has been taking some additional potassium but has been on the low end recently. She states that she is going to take 60 mg once this evening. She does have a lab recheck tomorrow. We discussed that she can come in and any time and she is aware of this and we also discussed that with low-potassium people can get cardiac arrhythmias and the heart can stop causing . She is aware of this. Related Data Home Medications Medication Instructions Recorded Confirmed lorazepam 1 mg PO BIDP PRN #0 09/13/17 07/23/18 sertraline 25 mg PO QDAY #0 09/13/17 07/23/18 cholecalciferol (vitamin D3) 1,000 unit PO QDAY #0 09/18/17 07/23/18 [Vitamin D3] lactulose 20 gm PO BID #0 09/18/17 07/23/18 spironolactone 50 mg PO BID #0 09/18/17 07/23/18 trazodone 100 mg PO BEDTIME #0 09/18/17 07/23/18 amitriptyline 100 mg PO HS #0 12/03/17 07/23/18 ranitidine HCl 150 mg PO HS #0 12/03/17 07/23/18 Blood Builder 1 cap PO DAILY 07/23/18 07/23/18 Buffered Vitamin C 1 tab PO DAILY 07/23/18 07/23/18 CoQ-10 1 cap PO DAILY 07/23/18 07/23/18 blue-green algae (Spirulina) 1 cap PO DAILY 07/23/18 07/23/18 ciprofloxacin HCl 1 tab PO QWEEK 07/23/18 07/23/18 gabapentin 300 mg PO QPM 07/23/18 07/23/18 potassium chloride 20 meq PO BID 07/23/18 07/23/18 Previous Rx's Medication Instructions Recorded bupropion HCl [Wellbutrin XL] 150 mg PO QDAY #30 tab 05/28/17 ondansetron [Zofran ODT] 4 mg SUBLINGUAL Q6HP PRN #16 odt 12/24/17 potassium chloride 20 meq PO BID #450 ml 07/23/18 Allergies Allergy/AdvReac Type Severity Reaction Status Date / Time No Known Allergies Allergy Uncoded 12/31/17 12:43 [facility] Social History Smoking Status: Former smoker Course Orders Ordered: ED Orders 08/31/18 16:19 Complete Blood Count AUTO DIFF Routine Comprehensive Metabolic Panel Routine Magnesium Routine MDM - Recheck/Abnormal Lab/Rx Lab Data Result diagrams: 08/31/18 16:19 08/31/18 16:19 Lab Results 08/31/18 08/31/18 Range/Units 16:19 16:19 WBC 3.3 L (4.5-11.0) X10^3/uL RBC 3.65 L (4.0-5.2) X10^6/uL Hgb 12.8 (12.0-16.0) g/dL Hct 36.0 (36-46) % MCV 98.4 D (80-100) fL MCH 34.9 H (26-34) PG MCHC 35.5 (30-36) % RDW 16.4 H (11.6-14.8) % Plt Count 276 (150-400) X10^3/uL Neut % (Auto) 48.3 L (50-75) % Lymph % (Auto) 37.8 (25-40) % [place] % (Auto) 13.1 (3-14) % Eos % (Auto) 0.1 L (2-4) % Baso % (Auto) 0.7 (0-2) % Neut # (Auto) 1600 L (0403-4996) /uL Sodium 133 L (137-145) mmol/L Potassium 2.4 L* (3.4-5.1) mmol/L Chloride 81 L (98-107) mmol/L Carbon Dioxide 43 H* (22-32) mmol/L BUN 9 (7-17) mg/dL Creatinine 0.80 (0.52-1.04) mg/dL Estimated GFR > 60.0 (>60) mL/min BUN/Creatinine Ratio 11.3 (6-22) Glucose 115 H (70-100) mg/dL Calcium 9.2 (8.4-10.2) mg/dL Magnesium 2.1 (1.6-2.3) mg/dL Total Bilirubin 0.3 (0.2-1.3) mg/dL AST 59 H (14-36) IU/L ALT 23 (9-52) IU/L Alkaline Phosphatase 194 H (38-126) U/L Total Protein 6.7 (6.3-8.2) g/dL Albumin 3.5 (3.5-5.0) g/dL Globulin 3.2 (1.7-4.1) g/dL Albumin/Globulin Ratio 1.1 (1.0-2.8) Discharge Plan Discharge Med Rec/Prescriptions Prescriptions: No Action bupropion HCl [Wellbutrin XL] 150 MG tablet extended release 24 hr 150 mg PO QDAY Qty: 30 RF: 0 sertraline 25 MG tablet 25 mg PO QDAY Qty: 0 RF: 0 lorazepam 1 MG tablet 1 mg PO BIDP PRN (Reason: Anxiety) Qty: 0 RF: 0 lactulose 20 GM/30 ML solution 20 gm PO BID Qty: 0 RF: 0 spironolactone 100 MG tablet 50 mg PO BID Qty: 0 RF: 0 cholecalciferol (vitamin D3) [Vitamin D3] 1,000 UNIT tablet 1,000 unit PO QDAY Qty: 0 RF: 0 trazodone 50 MG tablet 100 mg PO BEDTIME Qty: 0 RF: 0 ranitidine HCl 150 MG tablet 150 mg PO HS Qty: 0 RF: 0 amitriptyline 25 MG tablet 100 mg PO HS Qty: 0 RF: 0 ondansetron [Zofran ODT] 4 MG tablet,disintegrating 4 mg Sublingual Q6HP PRNQty: 16 RF: 0 ciprofloxacin HCl 500 mg tablet 1 tab PO QWEEK RF: 0 gabapentin 300 mg capsule 300 mg PO QPM RF: 0 potassium chloride 20 MEQ tablet,ER particles/crystals 20 meq PO BID RF: 0 Blood Builder capsule 1 cap PO DAILY RF: 0 Buffered Vitamin C 1 tab PO DAILY RF: 0 CoQ-10 1 cap PO DAILY RF: 0 blue-green algae (Spirulina) 1 cap PO DAILY RF: 0 potassium chloride 20 mEq/15 mL liquid 20 meq PO BID Qty: 450 RF: 0 Discharge Data Primary Care Provider: Roberto Carlos Sood Attending Provider: Roberto Carlos Sood
--- NOTE | 2018-08-31 20:48 | ED_ITS ---
HPI - Recheck/Abnormal Lab/Rx History of Present Illness HPI narrative: Patient not seen in department. Lab came to ER. Patient had critical potassium was 2.4. Lab had been unable to contact primary care provider Dr. Sood or anyone from there office. They tried the office number that is available as well as the hospitalist to is not covering the office. We also tried the office collision estimator number which was was not working. As patient's lab was 2.4 which is a critical level patient was contacted via phone. Patient' s chart was reviewed from last visit and discussed that she should come in for evaluation and replacement of her potassium. She states this is been a chronic problem, she has been taking some additional potassium but has been on the low end recently. She states that she is going to take 60 mg once this evening. She does have a lab recheck tomorrow. We discussed that she can come in and any time and she is aware of this and we also discussed that with low-potassium people can get cardiac arrhythmias and the heart can stop causing . She is aware of this. Related Data Home Medications Medication Instructions Recorded Confirmed lorazepam 1 mg PO BIDP PRN #0 09/13/17 07/23/18 sertraline 25 mg PO QDAY #0 09/13/17 07/23/18 cholecalciferol (vitamin D3) 1,000 unit PO QDAY #0 09/18/17 07/23/18 [Vitamin D3] lactulose 20 gm PO BID #0 09/18/17 07/23/18 spironolactone 50 mg PO BID #0 09/18/17 07/23/18 trazodone 100 mg PO BEDTIME #0 09/18/17 07/23/18 amitriptyline 100 mg PO HS #0 12/03/17 07/23/18 ranitidine HCl 150 mg PO HS #0 12/03/17 07/23/18 Blood Builder 1 cap PO DAILY 07/23/18 07/23/18 Buffered Vitamin C 1 tab PO DAILY 07/23/18 07/23/18 CoQ-10 1 cap PO DAILY 07/23/18 07/23/18 blue-green algae (Spirulina) 1 cap PO DAILY 07/23/18 07/23/18 ciprofloxacin HCl 1 tab PO QWEEK 07/23/18 07/23/18 gabapentin 300 mg PO QPM 07/23/18 07/23/18 potassium chloride 20 meq PO BID 07/23/18 07/23/18 Previous Rx's Medication Instructions Recorded bupropion HCl [Wellbutrin XL] 150 mg PO QDAY #30 tab 05/28/17 ondansetron [Zofran ODT] 4 mg SUBLINGUAL Q6HP PRN #16 odt 12/24/17 potassium chloride 20 meq PO BID #450 ml 07/23/18 Allergies Allergy/AdvReac Type Severity Reaction Status Date / Time No Known Allergies Allergy Uncoded 12/31/17 12:43 [facility] Social History Smoking Status: Former smoker Course Orders Ordered: ED Orders 08/31/18 16:19 Complete Blood Count AUTO DIFF Routine Comprehensive Metabolic Panel Routine Magnesium Routine MDM - Recheck/Abnormal Lab/Rx Lab Data Result diagrams: 08/31/18 16:19 08/31/18 16:19 Lab Results 08/31/18 08/31/18 Range/Units 16:19 16:19 WBC 3.3 L (4.5-11.0) X10^3/uL RBC 3.65 L (4.0-5.2) X10^6/uL Hgb 12.8 (12.0-16.0) g/dL Hct 36.0 (36-46) % MCV 98.4 D (80-100) fL MCH 34.9 H (26-34) PG MCHC 35.5 (30-36) % RDW 16.4 H (11.6-14.8) % Plt Count 276 (150-400) X10^3/uL Neut % (Auto) 48.3 L (50-75) % Lymph % (Auto) 37.8 (25-40) % [place] % (Auto) 13.1 (3-14) % Eos % (Auto) 0.1 L (2-4) % Baso % (Auto) 0.7 (0-2) % Neut # (Auto) 1600 L (5751-1249) /uL Sodium 133 L (137-145) mmol/L Potassium 2.4 L* (3.4-5.1) mmol/L Chloride 81 L (98-107) mmol/L Carbon Dioxide 43 H* (22-32) mmol/L BUN 9 (7-17) mg/dL Creatinine 0.80 (0.52-1.04) mg/dL Estimated GFR > 60.0 (>60) mL/min BUN/Creatinine Ratio 11.3 (6-22) Glucose 115 H (70-100) mg/dL Calcium 9.2 (8.4-10.2) mg/dL Magnesium 2.1 (1.6-2.3) mg/dL Total Bilirubin 0.3 (0.2-1.3) mg/dL AST 59 H (14-36) IU/L ALT 23 (9-52) IU/L Alkaline Phosphatase 194 H (38-126) U/L Total Protein 6.7 (6.3-8.2) g/dL Albumin 3.5 (3.5-5.0) g/dL Globulin 3.2 (1.7-4.1) g/dL Albumin/Globulin Ratio 1.1 (1.0-2.8) Discharge Plan Discharge Med Rec/Prescriptions Prescriptions: No Action bupropion HCl [Wellbutrin XL] 150 MG tablet extended release 24 hr 150 mg PO QDAY Qty: 30 RF: 0 sertraline 25 MG tablet 25 mg PO QDAY Qty: 0 RF: 0 lorazepam 1 MG tablet 1 mg PO BIDP PRN (Reason: Anxiety) Qty: 0 RF: 0 lactulose 20 GM/30 ML solution 20 gm PO BID Qty: 0 RF: 0 spironolactone 100 MG tablet 50 mg PO BID Qty: 0 RF: 0 cholecalciferol (vitamin D3) [Vitamin D3] 1,000 UNIT tablet 1,000 unit PO QDAY Qty: 0 RF: 0 trazodone 50 MG tablet 100 mg PO BEDTIME Qty: 0 RF: 0 ranitidine HCl 150 MG tablet 150 mg PO HS Qty: 0 RF: 0 amitriptyline 25 MG tablet 100 mg PO HS Qty: 0 RF: 0 ondansetron [Zofran ODT] 4 MG tablet,disintegrating 4 mg Sublingual Q6HP PRNQty: 16 RF: 0 ciprofloxacin HCl 500 mg tablet 1 tab PO QWEEK RF: 0 gabapentin 300 mg capsule 300 mg PO QPM RF: 0 potassium chloride 20 MEQ tablet,ER particles/crystals 20 meq PO BID RF: 0 Blood Builder capsule 1 cap PO DAILY RF: 0 Buffered Vitamin C 1 tab PO DAILY RF: 0 CoQ-10 1 cap PO DAILY RF: 0 blue-green algae (Spirulina) 1 cap PO DAILY RF: 0 potassium chloride 20 mEq/15 mL liquid 20 meq PO BID Qty: 450 RF: 0 Discharge Data Primary Care Provider: Roberto Carlos Sood Attending Provider: Roberto Carlos Sood
== END ==
PROVIDERS: Family Provider Internal Medicine; PCP Internal Medicine; Referring Provider Family Medicine; Visit Provider Internal Medicine
DX: M81.0 Age-related osteoporosis without current pathological fracture (principal); K70.31 Alcoholic cirrhosis of liver with ascites
CPT/HCPCS: 36415; 80053; 83735; 85025

== ENCOUNTER → 2018-09-01 09:17 | Outpatient (CLI) | payer OTHER, MEDICAID, SELFPAY ==
[2018-09-01 09:56] LABS: Add Manual Diff / Slide Review NO; Basophils Percent Auto 1.4 % (0-2); Eosinophils Percent Auto 0.3 % (2-4); Hematocrit 40.7 % (36-46); Hemoglobin 14.5 g/dL (12.0-16.0); Lymphocytes Percent Auto 57.7 % (25-40); Mean Corpuscular HGB Conc 35.6 % (30-36); Mean Corpuscular Hemoglobin 35.1 PG (26-34); Mean Corpuscular Volume 98.8 fL (80-100); Monocytes Percent Auto 13.4 % (3-14); Neutrophils Absolute Auto 700 /uL (3000-5900); Neutrophils Percent Auto 27.2 % (50-75); Platelet Count 355 X10^3/uL (150-400); Red Blood Cell Count 4.12 X10^6/uL (4.0-5.2); Red Cell Distribution Width 16.6 % (11.6-14.8); White Blood Cell Count 2.7 X10^3/uL (4.5-11.0)
[2018-09-01 10:03] LABS: Alanine Aminotransferase 23 IU/L (9-52); Albumin 4.2 g/dL (3.5-5.0); Albumin Globulin Ratio 1.1 (1.0-2.8); Alkaline Phosphatase 255 U/L (38-126); Aspartate Aminotransferase 116 IU/L (14-36); Bilirubin Total 0.3 mg/dL (0.2-1.3); Blood Urea Nitrogen 8 mg/dL (7-17); Calcium 9.5 mg/dL (8.4-10.2); Chloride 87 mmol/L (98-107); Estimated Glomerular Filt Rate > 60.0 mL/min (>60); Globulin 3.8 g/dL (1.7-4.1); Glucose 56 mg/dL (70-100); HEMOLYSIS < 15 (0-50); Potassium 3.2 mmol/L (3.4-5.1); Sodium 142 mmol/L (137-145)
[2018-09-01 10:17] LABS: Carbon Dioxide 41 mmol/L (22-32)
== END ==
PROVIDERS: Family Provider Internal Medicine; PCP Internal Medicine; Visit Provider Family Medicine
DX: E87.6 Hypokalemia (principal)
CPT/HCPCS: 36415; 80053; 85025

== ENCOUNTER → 2018-09-07 14:29 | Outpatient (CLI) | payer OTHER, MEDICAID, SELFPAY ==
[2018-09-07 15:07] LABS: Add Manual Diff / Slide Review NO; Eosinophils Percent Auto 0.4 % (2-4); Hematocrit 35.8 % (36-46); Hemoglobin 12.4 g/dL (12.0-16.0); Lymphocytes Percent Auto 41.1 % (25-40); Mean Corpuscular HGB Conc 34.6 % (30-36); Mean Corpuscular Hemoglobin 35.2 PG (26-34); Mean Corpuscular Volume 101.6 fL (80-100); Monocytes Percent Auto 10.4 % (3-14); Neutrophils Absolute Auto 1300 /uL (1500-7000); Neutrophils Percent Auto 47.1 % (50-75); Platelet Count 252 X10^3/uL (150-400); Red Blood Cell Count 3.52 X10^6/uL (4.0-5.2); Red Cell Distribution Width 16.2 % (11.6-14.8); White Blood Cell Count 2.8 X10^3/uL (4.5-11.0)
[2018-09-07 16:41] LABS: Alanine Aminotransferase 23 IU/L (9-52); Albumin 3.5 g/dL (3.5-5.0); Albumin Globulin Ratio 1.1 (1.0-2.8); Alkaline Phosphatase 209 U/L (38-126); Aspartate Aminotransferase 50 IU/L (14-36); BUN Creatinine Ratio 11.3 (6-22); Bilirubin Total 0.2 mg/dL (0.2-1.3); Blood Urea Nitrogen 9 mg/dL (7-17); Calcium 9.4 mg/dL (8.4-10.2); Carbon Dioxide 34 mmol/L (22-32); Chloride 94 mmol/L (98-107); Estimated Glomerular Filt Rate > 60.0 mL/min (>60); Globulin 3.2 g/dL (1.7-4.1); Glucose 125 mg/dL (70-100); HEMOLYSIS < 15 (0-50); Potassium 4.7 mmol/L (3.4-5.1); Sodium 137 mmol/L (137-145); Total Protein 6.7 g/dL (6.3-8.2)
== END ==
PROVIDERS: Family Provider Internal Medicine; PCP Internal Medicine; Visit Provider Family Medicine
DX: E87.6 Hypokalemia (principal)
CPT/HCPCS: 36415; 80053; 85025

== ENCOUNTER → 2018-09-23 10:55 | Outpatient (CLI) | payer OTHER, MEDICAID, SELFPAY ==
[2018-09-23 12:29] LABS: Add Manual Diff / Slide Review NO; Basophils Percent Auto 1.1 % (0-2); Eosinophils Percent Auto 0.3 % (2-4); Hematocrit 39.8 % (36-46); Hemoglobin 13.8 g/dL (12.0-16.0); Lymphocytes Percent Auto 35.7 % (25-40); Mean Corpuscular HGB Conc 34.7 % (30-36); Mean Corpuscular Volume 100.8 fL (80-100); Monocytes Percent Auto 13.9 % (3-14); Neutrophils Absolute Auto 1800 /uL (1500-7000); Platelet Count 282 X10^3/uL (150-400); Red Blood Cell Count 3.95 X10^6/uL (4.0-5.2); Red Cell Distribution Width 15.3 % (11.6-14.8); White Blood Cell Count 3.8 X10^3/uL (4.5-11.0)
[2018-09-23 12:33] LABS: Alanine Aminotransferase 29 IU/L (9-52); Albumin 4.1 g/dL (3.5-5.0); Alkaline Phosphatase 218 U/L (38-126); Aspartate Aminotransferase 59 IU/L (14-36); BUN Creatinine Ratio 10.9 (6-22); Bilirubin Total 0.5 mg/dL (0.2-1.3); Blood Urea Nitrogen 12 mg/dL (7-17); Calcium 9.9 mg/dL (8.4-10.2); Chloride 80 mmol/L (98-107); Estimated Glomerular Filt Rate 57.9 mL/min (>60); Glucose 108 mg/dL (70-100); HEMOLYSIS < 15 (0-50); Sodium 134 mmol/L (137-145); Total Protein 8.1 g/dL (6.3-8.2)
[2018-09-28 09:28] LABS: Carbon Dioxide 42 mmol/L (22-32); Potassium 2.7 mmol/L (3.4-5.1)
== END ==
PROVIDERS: Family Provider Internal Medicine; PCP Internal Medicine; Visit Provider Family Medicine
DX: E87.6 Hypokalemia (principal); D61.818 Other pancytopenia
CPT/HCPCS: 36415; 80053; 85025

== ENCOUNTER → 2018-09-28 10:35 | Outpatient (CLI) | payer OTHER, MEDICAID, SELFPAY ==
[2018-09-28 11:48] LABS: Add Manual Diff / Slide Review NO; Basophils Percent Auto 1.1 % (0-2); Eosinophils Percent Auto 0.8 % (2-4); Hematocrit 38.7 % (36-46); Hemoglobin 13.1 g/dL (12.0-16.0); Lymphocytes Percent Auto 35.8 % (25-40); Mean Corpuscular HGB Conc 33.9 % (30-36); Mean Corpuscular Hemoglobin 34.7 PG (26-34); Mean Corpuscular Volume 102.3 fL (80-100); Monocytes Percent Auto 14.3 % (3-14); Neutrophils Absolute Auto 1200 /uL (1500-7000); Platelet Count 225 X10^3/uL (150-400); Red Blood Cell Count 3.78 X10^6/uL (4.0-5.2); Red Cell Distribution Width 15.3 % (11.6-14.8); White Blood Cell Count 2.4 X10^3/uL (4.5-11.0)
[2018-09-28 11:51] LABS: Alanine Aminotransferase 24 IU/L (9-52); Albumin Globulin Ratio 1.1 (1.0-2.8); Alkaline Phosphatase 226 U/L (38-126); Aspartate Aminotransferase 66 IU/L (14-36); BUN Creatinine Ratio 17.5 (6-22); Bilirubin Total 0.5 mg/dL (0.2-1.3); Blood Urea Nitrogen 14 mg/dL (7-17); Carbon Dioxide 36 mmol/L (22-32); Chloride 93 mmol/L (98-107); Estimated Glomerular Filt Rate > 60.0 mL/min (>60); Globulin 3.8 g/dL (1.7-4.1); Glucose 99 mg/dL (70-100); HEMOLYSIS < 15 (0-50); Potassium 3.9 mmol/L (3.4-5.1); Sodium 137 mmol/L (137-145); Total Protein 7.8 g/dL (6.3-8.2)
== END ==
PROVIDERS: Family Provider Internal Medicine; PCP Internal Medicine; Visit Provider Family Medicine
DX: E87.6 Hypokalemia (principal); D61.818 Other pancytopenia
CPT/HCPCS: 36415; 80053; 85025

== ENCOUNTER → 2018-10-02 15:46 | Outpatient (CLI) | payer OTHER, MEDICAID, SELFPAY ==
[2018-10-02 17:28] LABS: Add Manual Diff / Slide Review NO; Basophils Absolute Auto 0 /uL (0-100); Basophils Percent Auto 0.4 % (0-2); Eosinophils Absolute Auto 0 /uL (0-450); Eosinophils Percent Auto 0.3 % (2-4); Hematocrit 34.4 % (36-46); Hemoglobin 11.9 g/dL (12.0-16.0); Lymphocytes Absolute Auto 1000 /uL (1100-4500); Lymphocytes Percent Auto 19.3 % (25-40); Mean Corpuscular HGB Conc 34.5 % (30-36); Mean Corpuscular Hemoglobin 35.5 PG (26-34); Mean Corpuscular Volume 102.9 fL (80-100); Monocytes Absolute Auto 700 /uL (0-900); Monocytes Percent Auto 13.5 % (3-14); Neutrophils Absolute Auto 3400 /uL (1500-7000); Neutrophils Percent Auto 66.5 % (50-75); Platelet Count 266 X10^3/uL (150-400); Red Blood Cell Count 3.34 X10^6/uL (4.0-5.2); Red Cell Distribution Width 15.4 % (11.6-14.8); White Blood Cell Count 5.2 X10^3/uL (4.5-11.0)
[2018-10-02 17:35] LABS: Alanine Aminotransferase 39 IU/L (9-52); Albumin 3.7 g/dL (3.5-5.0); Albumin Globulin Ratio 1.1 (1.0-2.8); Alkaline Phosphatase 229 U/L (38-126); Aspartate Aminotransferase 62 IU/L (14-36); BUN Creatinine Ratio 17.1 (6-22); Bilirubin Total 0.2 mg/dL (0.2-1.3); Blood Urea Nitrogen 12 mg/dL (7-17); Calcium 9.2 mg/dL (8.4-10.2); Carbon Dioxide 29 mmol/L (22-32); Chloride 95 mmol/L (98-107); Estimated Glomerular Filt Rate > 60.0 mL/min (>60); Globulin 3.3 g/dL (1.7-4.1); Glucose 58 mg/dL (70-100); HEMOLYSIS < 15 (0-50); Potassium 4.2 mmol/L (3.4-5.1); Sodium 134 mmol/L (137-145)
== END ==
PROVIDERS: Family Provider Internal Medicine; PCP Internal Medicine; Visit Provider Family Medicine
DX: E87.6 Hypokalemia (principal); D61.810 Antineoplastic chemotherapy induced pancytopenia
CPT/HCPCS: 36415; 80053; 85025

== ENCOUNTER 2018-10-22 08:43 | Emergency (ER) | payer OTHER, MEDICAID, SELFPAY ==
[2018-10-22 08:58] VITALS: BP 124/88; PULSE 89; RESP 18; TEMP 36.6; O2SAT 100; BMI 12.1
--- NOTE | 2018-10-22 10:55 | ED_ITS ---
HPI - Altered Mental Status General Chief Complaint: Altered Mental Status Stated Complaint: BODY TWITCHING Time Seen by Provider: 10/22/18 10:39 Source: patient Mode of arrival: ambulatory Limitations: no limitations History of Present Illness HPI narrative: Patient is a 33-year-old female with known alcoholic cirrhosis any eating disorder presenting with muscle twitches yesterday. She says that her arms and legs were twitching yesterday in fact a twitch so bad that she collapsed and was very weak and was unable to get herself up. She denies syncopal episode. Today he just does not feel quite right no fever or chills. Her joints are hurting her quite badly she has known avascular necrosis in hips and shoulders. He has chronic pain syndrome as well she has been referred to [facility] she has not yet been seen by them. She has not taken any Tylenol which is the only medication she is allowed she says that she has had oxycodone in the past which has helped. She was previously here on 10/02/2018 with hypokalemia potassium of 2.4. She continues to drink alcohol every other day almost an entire bottle of wine. MD complaint: weakness Related Data Home Medications Medication Instructions Recorded Confirmed lorazepam 1 mg PO BIDP PRN #0 09/13/17 10/22/18 sertraline 25 mg PO DAILY #0 09/13/17 10/22/18 cholecalciferol (vitamin D3) 1,000 unit PO DAILY #0 09/18/17 10/22/18 [Vitamin D3] lactulose 20 gm PO BID #0 09/18/17 10/22/18 spironolactone 100 mg PO DAILY #0 09/18/17 10/22/18 trazodone 100 mg PO BEDTIME #0 09/18/17 10/22/18 amitriptyline 100 mg PO BEDTIME #0 12/03/17 10/22/18 ranitidine HCl 150 mg PO BID #0 12/03/17 10/22/18 ciprofloxacin HCl 1 tab PO QWEEK 07/23/18 10/22/18 gabapentin 300 mg PO TID 07/23/18 10/22/18 alendronate 70 mg PO QWEEK 10/22/18 10/22/18 bupropion HCl [Wellbutrin XL] 150 mg PO DAILY 10/22/18 10/22/18 calcium carbonate [Calcium 500] 1 tab PO BID 10/22/18 10/22/18 ondansetron HCl 4 mg PO QID PRN 10/22/18 10/22/18 potassium chloride 20 meq PO TID 10/22/18 10/22/18 Allergies Allergy/AdvReac Type Severity Reaction Status Date / Time No Known Allergies Allergy Uncoded 12/31/17 12:43 Review of Systems Review of Systems GENERAL: Denies chills, fatigue, malaise, fever, sweats, travel HEENT: Denies sinus pain, ear pain, sore throat, difficulty swallowing, neck pain RESPIRATORY: Denies dyspnea, cough, wheezing, hemoptysis, sputum. CARDIOVASCULAR: Denies chest pain, palpitations, orthopnea, edema GASTROINTESTINAL: Denies nausea, vomiting, abdominal pain, diarrhea, constipation, melena. : Denies dysuria, frequency, incontinence, hematuria, urinary retention, flank pain. MUSCULOSKELETAL: See HPI SKIN: No rash, no erythema, no pruritus NEUROLOGIC: -extremity twitching Denies weakness, dizziness, headache, numbness , change in speech, confusion PSYCHIATRIC: No concerning psychosocial issues. 12 point review of systems is negative except for those stated above and HPI Exam Initial Vital Signs Initial Vital Signs: Vital Signs Temperature 97.8 F 10/22/18 08:58 Pulse Rate 89 10/22/18 08:58 Respiratory Rate 18 10/22/18 08:58 Blood Pressure 124/88 10/22/18 08:58 Pulse Oximetry 100 10/22/18 08:58 GENERAL: Well-dressed very thin appearing female alert oriented x3 HEENT: Head atraumatic,EOMI, pupils reactive, face symmetric, moist mucous membranes CARDIOVASCULAR: Regular rate and rhythm without murmurs, rubs or gallops. RESPIRATORY: Breath sounds equal bilaterally, no wheezes rales or rhonchi. ABDOMEN: Soft, nontender. Normoactive bowel sounds all 4 quadrants. No guarding or rebound. No ascites appreciated EXTREMITIES: Normal range of motion, no clubbing or edema. Neurovascularly intact NEUROLOGICAL: Alert and oriented x4.Normal gait and speech. Cranial nerves II through XII grossly intact. Upper extremity asterixis. No lower extremity twitching. [employer] strength equal SKIN: Warm, dry, no laceration, no petechiae, no rashes or lesions. Course Orders Ordered: ED Orders 10/22/18 09:30 Complete Blood Count AUTO DIFF Stat Comprehensive Metabolic Panel Stat Discontinued Medications Acetaminophen (Tylenol) 975 mg PO NOW ONE Stop: 10/22/18 10:51 Last Admin: 10/22/18 11:05 Dose: 975 mg Vital Signs - 8 hr 10/22/18 08:58 10/22/18 11:08 Temperature 97.8 F Pulse Rate 89 94 H Respiratory Rate 18 16 Blood Pressure 124/88 Blood Pressure [Right Arm] 125/95 H Pulse Oximetry 100 95 MDM - Altered Mental Status Lab Data Attestation: I reviewed the patient's lab results. Result diagrams: 10/22/18 09:30 10/22/18 09:30 Lab Results 10/22/18 10/22/18 Range/Units 09:30 09:30 WBC 3.8 L (4.5-11.0) X10^3/uL RBC 3.29 L (4.0-5.2) X10^6/uL Hgb 11.7 L (12.0-16.0) g/dL Hct 34.8 L (36-46) % MCV 106.0 H (80-100) fL MCH 35.7 H (26-34) PG MCHC 33.6 (30-36) % RDW 15.7 H (11.6-14.8) % Plt Count 233 (150-400) X10^3/uL Neut % (Auto) 67.0 (50-75) % Lymph % (Auto) 21.7 L (25-40) % [place] % (Auto) 10.3 (3-14) % Eos % (Auto) 0.5 L (2-4) % Baso % (Auto) 0.5 (0-2) % Neut # (Auto) 2500 (4283-9168) /uL Lymph # (Auto) 800 L (3831-2417) /uL [place] # (Auto) 400 (0-900) /uL Eos # (Auto) 0 (0-450) /uL Baso # (Auto) 0 (0-100) /uL Sodium 135 L (137-145) mmol/L Potassium 4.6 (3.4-5.1) mmol/L Chloride 101 (98-107) mmol/L Carbon Dioxide 24 (22-32) mmol/L BUN 8 (7-17) mg/dL Creatinine 0.60 (0.52-1.04) mg/dL Estimated GFR > 60.0 (>60) mL/min BUN/Creatinine Ratio 13.3 (6-22) Glucose 80 (70-100) mg/dL Calcium 9.4 (8.4-10.2) mg/dL Total Bilirubin 0.5 (0.2-1.3) mg/dL AST 97 H (14-36) IU/L ALT 39 (9-52) IU/L Alkaline Phosphatase 274 H (38-126) U/L Total Protein 7.8 (6.3-8.2) g/dL Albumin 4.2 (3.5-5.0) g/dL Globulin 3.6 (1.7-4.1) g/dL Albumin/Globulin Ratio 1.2 (1.0-2.8) Point of Care Testing Glucose POC 93 MDM Narrative Medical decision making narrative: Patient's blood work is reassuring potassium is within normal limits. She has chronic pain in her joints she states due to avascular necrosis. The she has been referred to pain management. Due to her history of substance abuse I will not be prescribing her any narcotics.. She asked about acupuncture which I strongly encouraged along with other alternative such as yoga. Discharge Plan Departure Patient Disposition: Home Clinical Impression: Chronic pain Discharge Date/Time: 10/22/18 12:36 Interventions: ED Discharge Assessment Last Done: 10/22/18 12:35 Instructions: DI for Chronic Pain -- Adult Activity Restrictions/Additional Instructions: *You have been diagnosed with chronic pain *What to do: Recommend acupuncture, gentle yoga, or any other alternatives to help relieve chronic *Continue to take medications as directed Tylenol 650 mg every 4-6 hours if needed for pain *Follow up with your primary care provider in 2-3 days *Return to ER if you should have confusion, weakness, fever or any new, worsening or concerning symptoms Prescriptions: No Action sertraline 25 MG tablet 25 mg PO DAILY Qty: 0 RF: 0 lorazepam 1 MG tablet 1 mg PO BIDP PRN (Reason: Anxiety) Qty: 0 RF: 0 lactulose 20 GM/30 ML solution 20 gm PO BID Qty: 0 RF: 0 spironolactone 100 MG tablet 100 mg PO DAILY Qty: 0 RF: 0 cholecalciferol (vitamin D3) [Vitamin D3] 1,000 UNIT tablet 1,000 unit PO DAILY Qty: 0 RF: 0 trazodone 50 MG tablet 100 mg PO BEDTIME Qty: 0 RF: 0 ranitidine HCl 150 MG tablet 150 mg PO BID Qty: 0 RF: 0 amitriptyline 25 MG tablet 100 mg PO BEDTIME Qty: 0 RF: 0 ciprofloxacin HCl 500 mg tablet 1 tab PO QWEEK RF: 0 gabapentin 300 mg capsule 300 mg PO TID RF: 0 alendronate 70 mg tablet 70 mg PO QWEEK RF: 0 bupropion HCl [Wellbutrin XL] 150 MG tablet extended release 24 hr 150 mg PO DAILY RF: 0 ondansetron HCl 4 mg tablet 4 mg PO QID PRN (Reason: Nausea And Vomiting) RF: 0 potassium chloride 20 mEq tablet,ER particles/crystals 20 meq PO TID RF: 0 calcium carbonate [Calcium 500] 500 mg calcium (1,250 mg) Tablet 1 tab PO BID RF: 0 Referrals: Roberto Carlos Sood MD [Primary Care Provider] -
[2018-10-22 11:04] LABS: Add Manual Diff / Slide Review NO; Basophils Absolute Auto 0 /uL (0-100); Basophils Percent Auto 0.5 % (0-2); Eosinophils Absolute Auto 0 /uL (0-450); Eosinophils Percent Auto 0.5 % (2-4); Hematocrit 34.8 % (36-46); Hemoglobin 11.7 g/dL (12.0-16.0); Lymphocytes Absolute Auto 800 /uL (1100-4500); Lymphocytes Percent Auto 21.7 % (25-40); Mean Corpuscular HGB Conc 33.6 % (30-36); Mean Corpuscular Hemoglobin 35.7 PG (26-34); Monocytes Absolute Auto 400 /uL (0-900); Monocytes Percent Auto 10.3 % (3-14); Neutrophils Absolute Auto 2500 /uL (1500-7000); Platelet Count 233 X10^3/uL (150-400); Red Blood Cell Count 3.29 X10^6/uL (4.0-5.2); Red Cell Distribution Width 15.7 % (11.6-14.8); White Blood Cell Count 3.8 X10^3/uL (4.5-11.0)
[2018-10-22] MEDS: ACETAMINOPHEN 325 MG TABLET 975 MG PO (11:05)
[2018-10-22 11:08] VITALS: BP 125/95; PULSE 94; RESP 16; O2SAT 95
[2018-10-22 11:14] LABS: Alanine Aminotransferase 39 IU/L (9-52); Albumin 4.2 g/dL (3.5-5.0); Albumin Globulin Ratio 1.2 (1.0-2.8); Alkaline Phosphatase 274 U/L (38-126); Aspartate Aminotransferase 97 IU/L (14-36); BUN Creatinine Ratio 13.3 (6-22); Bilirubin Total 0.5 mg/dL (0.2-1.3); Blood Urea Nitrogen 8 mg/dL (7-17); Calcium 9.4 mg/dL (8.4-10.2); Carbon Dioxide 24 mmol/L (22-32); Chloride 101 mmol/L (98-107); Estimated Glomerular Filt Rate > 60.0 mL/min (>60); Globulin 3.6 g/dL (1.7-4.1); Glucose 80 mg/dL (70-100); HEMOLYSIS < 15 (0-50); Potassium 4.6 mmol/L (3.4-5.1); Sodium 135 mmol/L (137-145); Total Protein 7.8 g/dL (6.3-8.2)
== END 2018-10-22 12:36 | disposition home or self-care (01) ==
PROVIDERS: Emergency Provider Emergency Medicine; Family Provider Internal Medicine; PCP Internal Medicine
DX: G89.29 Other chronic pain (principal)
CPT/HCPCS: 36591; 80053; 82962; 85025; 99283

== ENCOUNTER → 2018-11-03 12:23 | Outpatient (CLI) | payer OTHER, MEDICAID, SELFPAY ==
[2018-11-03 12:40] LABS: Add Manual Diff / Slide Review NO; Basophils Absolute Auto 0 /uL (0-100); Basophils Percent Auto 0.8 % (0-2); Eosinophils Absolute Auto 0 /uL (0-450); Eosinophils Percent Auto 0.3 % (2-4); Hematocrit 39.4 % (36-46); Hemoglobin 13.7 g/dL (12.0-16.0); Lymphocytes Absolute Auto 1200 /uL (1100-4500); Lymphocytes Percent Auto 30.4 % (25-40); Mean Corpuscular HGB Conc 34.9 % (30-36); Mean Corpuscular Hemoglobin 35.2 PG (26-34); Mean Corpuscular Volume 100.8 fL (80-100); Monocytes Absolute Auto 700 /uL (0-900); Monocytes Percent Auto 17.9 % (3-14); Neutrophils Absolute Auto 1900 /uL (1500-7000); Neutrophils Percent Auto 50.6 % (50-75); Platelet Count 437 X10^3/uL (150-400); Red Blood Cell Count 3.91 X10^6/uL (4.0-5.2); Red Cell Distribution Width 14.9 % (11.6-14.8); White Blood Cell Count 3.8 X10^3/uL (4.5-11.0)
[2018-11-03 13:37] LABS: Alanine Aminotransferase 29 IU/L (9-52); Albumin 4.5 g/dL (3.5-5.0); Albumin Globulin Ratio 1.2 (1.0-2.8); Alkaline Phosphatase 186 U/L (38-126); Aspartate Aminotransferase 55 IU/L (14-36); BUN Creatinine Ratio 17.8 (6-22); Bilirubin Total 0.6 mg/dL (0.2-1.3); Blood Urea Nitrogen 16 mg/dL (7-17); Chloride 79 mmol/L (98-107); Estimated Glomerular Filt Rate > 60.0 mL/min (>60); Globulin 3.7 g/dL (1.7-4.1); Glucose 120 mg/dL (70-100); HEMOLYSIS < 15 (0-50); Potassium 3.8 mmol/L (3.4-5.1); Sodium 133 mmol/L (137-145); Total Protein 8.2 g/dL (6.3-8.2)
[2018-11-03 13:56] LABS: Carbon Dioxide 41 mmol/L (22-32)
== END ==
PROVIDERS: Family Provider Internal Medicine; PCP Internal Medicine; Visit Provider Family Medicine
DX: E87.6 Hypokalemia (principal); D61.810 Antineoplastic chemotherapy induced pancytopenia
CPT/HCPCS: 36415; 80053; 85025

== ENCOUNTER → 2019-01-04 11:20 | Outpatient (CLI) | payer OTHER, MEDICAID, SELFPAY ==
[2019-01-04 12:00] LABS: Add Manual Diff / Slide Review NO; Basophils Absolute Auto 0 /uL (0-100); Basophils Percent Auto 0.9 % (0-2); Eosinophils Absolute Auto 0 /uL (0-450); Eosinophils Percent Auto 0.2 % (2-4); Hematocrit 39.6 % (36-46); Hemoglobin 13.8 g/dL (12.0-16.0); Lymphocytes Absolute Auto 1200 /uL (1100-4500); Lymphocytes Percent Auto 32.7 % (25-40); Mean Corpuscular HGB Conc 34.9 % (30-36); Mean Corpuscular Hemoglobin 35.6 PG (26-34); Monocytes Absolute Auto 600 /uL (0-900); Monocytes Percent Auto 17.8 % (3-14); Neutrophils Absolute Auto 1700 /uL (1500-7000); Neutrophils Percent Auto 48.4 % (50-75); Platelet Count 244 X10^3/uL (150-400); Red Blood Cell Count 3.88 X10^6/uL (4.0-5.2); Red Cell Distribution Width 14.9 % (11.6-14.8); White Blood Cell Count 3.5 X10^3/uL (4.5-11.0)
[2019-01-04 12:57] LABS: Alanine Aminotransferase 40 IU/L (9-52); Albumin 4.6 g/dL (3.5-5.0); Albumin Globulin Ratio 1.4 (1.0-2.8); Alkaline Phosphatase 175 U/L (38-126); Aspartate Aminotransferase 77 IU/L (14-36); BUN Creatinine Ratio 12.5 (6-22); Bilirubin Total 0.4 mg/dL (0.2-1.3); Blood Urea Nitrogen 10 mg/dL (7-17); Calcium 9.8 mg/dL (8.4-10.2); Carbon Dioxide 37 mmol/L (22-32); Chloride 83 mmol/L (98-107); Estimated Glomerular Filt Rate > 60.0 mL/min (>60); Globulin 3.3 g/dL (1.7-4.1); Glucose 101 mg/dL (70-100); HEMOLYSIS < 15 (0-50); Potassium 3.2 mmol/L (3.4-5.1); Sodium 132 mmol/L (137-145); Total Protein 7.9 g/dL (6.3-8.2)
[2019-01-05 16:24] LABS: Magnesium 2.1 mg/dL (1.6-2.3)
== END ==
PROVIDERS: PCP Internal Medicine; Visit Provider Internal Medicine
DX: E44.0 Moderate protein-calorie malnutrition (principal); M87.00 Idiopathic aseptic necrosis of unspecified bone; K70.31 Alcoholic cirrhosis of liver with ascites
CPT/HCPCS: 36415; 80053; 83735; 85025

== ENCOUNTER → 2019-02-11 10:13 | Outpatient (CLI) | payer OTHER, MEDICAID, SELFPAY ==
[2019-02-11 12:10] LABS: Prothrombin Time 11.8 SECONDS (10.1-12.7)
[2019-02-11 12:15] LABS: Add Manual Diff / Slide Review NO; Basophils Absolute Auto 0 /uL (0-100); Basophils Percent Auto 1.2 % (0-2); Eosinophils Absolute Auto 0 /uL (0-450); Eosinophils Percent Auto 0.6 % (2-4); Hematocrit 41.4 % (36-46); Lymphocytes Absolute Auto 1100 /uL (1100-4500); Lymphocytes Percent Auto 44.8 % (25-40); Mean Corpuscular HGB Conc 33.8 % (30-36); Mean Corpuscular Hemoglobin 35.5 PG (26-34); Mean Corpuscular Volume 105.2 fL (80-100); Monocytes Absolute Auto 300 /uL (0-900); Monocytes Percent Auto 13.7 % (3-14); Neutrophils Absolute Auto 1000 /uL (1500-7000); Neutrophils Percent Auto 39.7 % (50-75); Platelet Count 318 X10^3/uL (150-400); Red Blood Cell Count 3.93 X10^6/uL (4.0-5.2); Red Cell Distribution Width 13.9 % (11.6-14.8); White Blood Cell Count 2.5 X10^3/uL (4.5-11.0)
[2019-02-11 12:25] LABS: Alanine Aminotransferase 30 IU/L (9-52); Albumin 4.4 g/dL (3.5-5.0); Albumin Globulin Ratio 1.2 (1.0-2.8); Alkaline Phosphatase 222 U/L (38-126); Aspartate Aminotransferase 77 IU/L (14-36); BUN Creatinine Ratio 8.8 (6-22); Bilirubin Total 0.8 mg/dL (0.2-1.3); Blood Urea Nitrogen 7 mg/dL (7-17); Calcium 10.2 mg/dL (8.4-10.2); Carbon Dioxide 38 mmol/L (22-32); Chloride 90 mmol/L (98-107); Estimated Glomerular Filt Rate > 60.0 mL/min (>60); Gamma Glutamyl Transpeptidase 706 U/L (12-43); Globulin 3.6 g/dL (1.7-4.1); Glucose 87 mg/dL (70-100); HEMOLYSIS < 15 (0-50); Potassium 4.1 mmol/L (3.4-5.1); Sodium 139 mmol/L (137-145)
== END ==
PROVIDERS: PCP Internal Medicine; Visit Provider Internal Medicine
DX: K70.30 Alcoholic cirrhosis of liver without ascites (principal)
CPT/HCPCS: 36415; 80053; 82977; 85025; 85610

== ENCOUNTER 2019-03-02 19:10 | Emergency (ER) | payer OTHER, MEDICAID, SELFPAY ==
[2019-03-02 19:13] VITALS: BP 102/70; PULSE 110; RESP 18; TEMP 37.3; O2SAT 96
[2019-03-02 19:46] LABS: Add Manual Diff / Slide Review NO; Basophils Absolute Auto 0 /uL (0-100); Basophils Percent Auto 0.6 % (0-2); Eosinophils Absolute Auto 0 /uL (0-450); Eosinophils Percent Auto 0.3 % (2-4); Hematocrit 33.3 % (36-46); Hemoglobin 11.7 g/dL (12.0-16.0); Lymphocytes Absolute Auto 1400 /uL (1100-4500); Lymphocytes Percent Auto 38.6 % (25-40); Mean Corpuscular HGB Conc 35.3 % (30-36); Mean Corpuscular Hemoglobin 35.8 PG (26-34); Mean Corpuscular Volume 101.5 fL (80-100); Monocytes Absolute Auto 500 /uL (0-900); Neutrophils Absolute Auto 1700 /uL (1500-7000); Neutrophils Percent Auto 45.5 % (50-75); Platelet Count 254 X10^3/uL (150-400); Red Blood Cell Count 3.28 X10^6/uL (4.0-5.2); Red Cell Distribution Width 13.5 % (11.6-14.8); White Blood Cell Count 3.7 X10^3/uL (4.5-11.0)
[2019-03-02 19:52] VITALS: BP 105/80; PULSE 96; RESP 14; O2SAT 96
[2019-03-02 19:52] LABS: Alanine Aminotransferase 17 IU/L (9-52); Albumin 3.8 g/dL (3.5-5.0); Albumin Globulin Ratio 1.2 (1.0-2.8); Alkaline Phosphatase 181 U/L (38-126); Aspartate Aminotransferase 67 IU/L (14-36); BUN Creatinine Ratio 7.1 (6-22); Bilirubin Total 0.4 mg/dL (0.2-1.3); Blood Urea Nitrogen 5 mg/dL (7-17); Calcium 9.3 mg/dL (8.4-10.2); Carbon Dioxide 30 mmol/L (22-32); Chloride 93 mmol/L (98-107); Estimated Glomerular Filt Rate > 60.0 mL/min (>60); Globulin 3.2 g/dL (1.7-4.1); Glucose 77 mg/dL (70-100); HEMOLYSIS 17 (0-50); Lipase 35 U/L (23-300); Potassium 3.5 mmol/L (3.4-5.1); Sodium 136 mmol/L (137-145)
[2019-03-02 19:55] LABS: Prothrombin Time 11.7 SECONDS (10.1-12.7)
[2019-03-02 19:57] LABS: PTT Partial Thromboplastin Tim 31 SECONDS (26.4-36.2)
--- NOTE | 2019-03-02 20:18 | ED.SOB ---
HPI - SOB/Dyspnea General Chief Complaint: Abdominal Pain Stated Complaint: DIFFICULTY BREATHING Time Seen by Provider: 03/02/19 19:43 Source: patient Mode of arrival: ambulatory Limitations: no limitations History of Present Illness Patient is a 33-year-old female who has multiple medical problems. She has a history of alcoholism, ascites, anorexia, and CVA. Presents today with what she calls the can't get enough air. She says she takes a deep breath but does not feel like she is getting enough oxygen. Then makes it feel like her stomach sort of hurts. She denies any chest pain. She has no shortness of breath with exertion no fever no cough. She has no of localization of abdominal pain no nausea vomiting. She is leaving for a trip in few days and wants to make sure that she is okay. She has had some stairs complications past and is just worried. MD Complaint: shortness of breath Severity: mild Consistency/Duration: intermittent Related Data Home Medications Medication Instructions Recorded Confirmed lorazepam 1 mg PO BIDP PRN #0 09/13/17 03/02/19 sertraline 25 mg PO BEDTIME #0 09/13/17 03/02/19 cholecalciferol (vitamin D3) 1,000 unit PO DAILY #0 09/18/17 03/02/19 [Vitamin D3] lactulose 20 gm PO BID #0 09/18/17 03/02/19 spironolactone 100 mg PO DAILY PRN #0 09/18/17 03/02/19 trazodone 100 mg PO BEDTIME #0 09/18/17 03/02/19 amitriptyline 100 mg PO BEDTIME #0 12/03/17 03/02/19 ranitidine HCl 150 mg PO BID #0 12/03/17 03/02/19 gabapentin 900 mg PO BEDTIME 07/23/18 03/02/19 alendronate 70 mg PO QWEEK 10/22/18 03/02/19 bupropion HCl [Wellbutrin XL] 150 mg PO DAILY 10/22/18 03/02/19 calcium carbonate [Calcium 500] 2 tab PO DAILY 10/22/18 03/02/19 ondansetron HCl 4 mg PO QID PRN 10/22/18 03/02/19 potassium chloride 20 meq PO TID 10/22/18 03/02/19 Allergies Allergy/AdvReac Type Severity Reaction Status Date / Time No Known Drug Allergies Allergy Verified 03/02/19 19:18 Review of Systems Review of Systems ROS Unobtainable: All systems reviewed & are unremarkable except as noted in HPI and below Constitutional Denies chills, Denies fever(s), Denies lethargy and Denies weakness Eyes Denies change in vision, Denies eye discharge, Denies irritation and Denies loss of vision ENT Ears, Nose, Mouth, and Throat: Denies change in voice, Denies neck pain and Denies sore throat Cardiovascular Denies chest pain, Denies irregular heart rhythm, Denies lightheadedness, Denies palpitations and Denies orthopnea Respiratory Reports as per HPI Gastrointestinal Gastrointestinal: Denies abdominal pain, Denies change in bowel habits, Denies diarrhea, Denies nausea and Denies vomiting Genitourinary Denies hematuria, Denies flank pain, Denies urinary incontinence and Denies urinary urgency Musculoskeletal Denies neck pain Integumentary/Breasts Denies pruritus, Denies erythema, Denies rash and Denies wounds Neurologic Denies loss of vision and Denies weakness Endocrine Denies palpitations [facility] Medical History Alcoholism (Acute) Anorexia (Acute) Social History Smoking Status: Former smoker Social History Smoking Status: Former smoker Exam Initial Vital Signs Initial Vital Signs: Vital Signs Temperature 99.1 F 03/02/19 19:13 Pulse Rate 110 H 03/02/19 19:13 Respiratory Rate 18 03/02/19 19:13 Blood Pressure 102/70 03/02/19 19:13 Pulse Oximetry 96 03/02/19 19:13 GENERAL: Thin well-appearing young female and in [no acute] distress. HEENT: Head atraumatic,EOMI, pupils reactive, CARDIOVASCULAR: Regular rate and rhythm without murmurs, rubs or gallops. RESPIRATORY: Breath sounds equal bilaterally, no wheezes rales or rhonchi. ABDOMEN: Soft, nontender. Normoactive bowel sounds all 4 quadrants. No guarding or rebound. No ascites no fluid wave : No CVA tenderness EXTREMITIES: Normal range of motion, no clubbing or edema. Neurovascularly intact NEUROLOGICAL: Alert and oriented x4.Normal gait and speech. Cranial nerves II through XII grossly intact. SKIN: Warm, dry, no laceration, no petechiae, no rashes or lesions. Course Orders Ordered: ED Orders 03/02/19 19:23 EKG-12 Lead Stat 03/02/19 19:28 Complete Blood Count AUTO DIFF Stat Comprehensive Metabolic Panel Stat Lipase Stat Partial Thromboplastin Time Stat Prothrombin Time INR Stat 03/02/19 20:18 XR chest 2V Stat 03/02/19 20:39 CT angio chest PE protocol Stat 03/02/19 21:06 Test Serum,Qual Stat Discontinued Medications Albuterol (Ventolin) 2.5 mg INH NOW ONE Stop: 03/02/19 20:19 Last Admin: 03/02/19 20:25 Dose: 2.5 mg Albuterol (Ventolin Hfa Prepack) 1 box MISC SEEINSTR ONE Stop: 03/02/19 23:59 Last Admin: 03/03/19 00:06 Dose: 1 box Vital Signs - 8 hr 03/02/19 19:13 03/02/19 19:52 03/02/19 21:00 Temperature 99.1 F 98.2 F Pulse Rate 110 H 96 H Respiratory Rate 18 14 Blood Pressure 102/70 Blood Pressure [Left Arm] 105/80 Pulse Oximetry 96 96 03/02/19 21:51 03/02/19 22:34 03/03/19 00:00 Temperature Pulse Rate 95 H 91 H 93 H Respiratory Rate 12 12 16 Blood Pressure Blood Pressure [Left Arm] 95/72 93/68 94/64 Pulse Oximetry 100 100 98 MDM - SOB/Dyspnea Lab Data Attestation: I reviewed the patient's lab results. Result diagrams: 03/02/19 19:28 03/02/19 19:28 Lab Results 03/02/19 03/02/19 03/02/19 Range/Units 19:28 19:28 19:28 WBC 3.7 L (4.5-11.0) X10^3/uL RBC 3.28 L (4.0-5.2) X10^6/uL Hgb 11.7 L (12.0-16.0) g/dL Hct 33.3 L (36-46) % MCV 101.5 H (80-100) fL MCH 35.8 H (26-34) PG MCHC 35.3 (30-36) % RDW 13.5 (11.6-14.8) % Plt Count 254 (150-400) X10^3/uL Neut % (Auto) 45.5 L (50-75) % Lymph % (Auto) 38.6 (25-40) % [place] % (Auto) 15.0 H (3-14) % Eos % (Auto) 0.3 L (2-4) % Baso % (Auto) 0.6 (0-2) % Neut # (Auto) 1700 (4791-9488) /uL Lymph # (Auto) 1400 (3745-8416) /uL [place] # (Auto) 500 (0-900) /uL Eos # (Auto) 0 (0-450) /uL Baso # (Auto) 0 (0-100) /uL PT 11.7 (10.1-12.7) SECONDS INR 1.0 (0.9-1.3) APTT 31 (26.4-36.2) SECONDS Sodium 136 L (137-145) mmol/L Potassium 3.5 (3.4-5.1) mmol/L Chloride 93 L (98-107) mmol/L Carbon Dioxide 30 (22-32) mmol/L BUN 5 L (7-17) mg/dL Creatinine 0.70 (0.52-1.04) mg/dL Estimated GFR > 60.0 (>60) mL/min BUN/Creatinine Ratio 7.1 (6-22) Glucose 77 (70-100) mg/dL Calcium 9.3 (8.4-10.2) mg/dL Total Bilirubin 0.4 (0.2-1.3) mg/dL AST 67 H (14-36) IU/L ALT 17 (9-52) IU/L Alkaline Phosphatase 181 H (38-126) U/L Total Protein 7.0 (6.3-8.2) g/dL Albumin 3.8 (3.5-5.0) g/dL Globulin 3.2 (1.7-4.1) g/dL Albumin/Globulin Ratio 1.2 (1.0-2.8) Lipase 35 (23-300) U/L Serum , Qual (Negative) 03/02/19 Range/Units 21:06 WBC (4.5-11.0) X10^3/uL RBC (4.0-5.2) X10^6/uL Hgb (12.0-16.0) g/dL Hct (36-46) % MCV (80-100) fL MCH (26-34) PG MCHC (30-36) % RDW (11.6-14.8) % Plt Count (150-400) X10^3/uL Neut % (Auto) (50-75) % Lymph % (Auto) (25-40) % [place] % (Auto) (3-14) % Eos % (Auto) (2-4) % Baso % (Auto) (0-2) % Neut # (Auto) (9592-7221) /uL Lymph # (Auto) (0224-1369) /uL [place] # (Auto) (0-900) /uL Eos # (Auto) (0-450) /uL Baso # (Auto) (0-100) /uL PT (10.1-12.7) SECONDS INR (0.9-1.3) APTT (26.4-36.2) SECONDS Sodium (137-145) mmol/L Potassium (3.4-5.1) mmol/L Chloride (98-107) mmol/L Carbon Dioxide (22-32) mmol/L BUN (7-17) mg/dL Creatinine (0.52-1.04) mg/dL Estimated GFR (>60) mL/min BUN/Creatinine Ratio (6-22) Glucose (70-100) mg/dL Calcium (8.4-10.2) mg/dL Total Bilirubin (0.2-1.3) mg/dL AST (14-36) IU/L ALT (9-52) IU/L Alkaline Phosphatase (38-126) U/L Total Protein (6.3-8.2) g/dL Albumin (3.5-5.0) g/dL Globulin (1.7-4.1) g/dL Albumin/Globulin Ratio (1.0-2.8) Lipase (23-300) U/L Serum , Qual Negative (Negative) Point of Care Testing Test Results Negative Urine Dip Bedside Urine Glucose Negative Bedside Urine Bilirubin - Negative Bedside Urine Ketone - Negative Urine Specific [place] 1.010 Bedside Urine Occult Blood - Negative Bedside Urine pH 8.5 Bedside Urine Protein - Negative Bedside Urine Urobilinogen - Negative Bedside Urine Nitrite - Negative Bedside Urine Leukocytes - Negative Esterase Imaging Data Chest x-ray: Radiologist's impression: PROCEDURE: XR CHEST 2V INDICATIONS: short of breath TECHNIQUE: 2 views of the chest were acquired. COMPARISON: None. FINDINGS: Surgical changes and devices: None. Lungs and pleura: Lungs are clear. No pleural effusions or pneumothorax. Mediastinum: Mediastinal contours are normal. Heart size is normal. Bones and chest wall: No suspicious bony abnormalities. Soft tissues appear unremarkable. IMPRESSION: No acute process. Dictated by: Monica Jerome M.D. on 03/02/2019 at 20:39 CT scan - chest: Radiologist's impression: shift leader report: No PE or dissection clear lungs bilateral intact appearing breast implant ECG Data Attestation: I personally reviewed and interpreted this ECG as follows: Prior ECG tracings: available for review Interpretation: Normal sinus rhythm rate [address] changes no T-wave inversions MDM Narrative Medical decision making narrative: Patient appears well. She was worried initially her electrolytes were abnormal however her potassium is within normal limits she says typically that 1 is abnormal. Patient has multiple comorbidities atypical symptoms of things in the past. Need to rule out PE. No evidence of PE on CT. Initially he stated the albuterol did not help for however after sitting for awhile she says it actually feels better and would like an albuterol inhaler to go home with. Discharge Plan Departure Patient Disposition: Home Clinical Impression: Mild reactive airways disease Qualifiers: Asthma persistence: intermittent Asthma complication type: uncomplicated Qualified Code(s): J45.20 - Mild intermittent asthma, uncomplicated Discharge Date/Time: 03/03/19 00:06 Interventions: ED Discharge Assessment Last Done: 03/03/19 00:06 Instructions: DI for Reactive Airway Disease-Adult Activity Restrictions/Additional Instructions: *You have been diagnosed with reactive airway *What to do: Symptoms likely caused by bronchospasm *Continue to take medications as directed Albuterol 1-2 puffs with spacer every 4 hours if needed for shortness of breath *Follow up with your primary care provider in 2-3 days *Return to ER if you should have no relief with albuterol needing frequent albuterol, increasing shortness of breath or any new, worsening or concerning symptoms Prescriptions: No Action sertraline 25 MG tablet 25 mg PO BEDTIME Qty: 0 RF: 0 lorazepam 1 MG tablet 1 mg PO BIDP PRN (Reason: Anxiety) Qty: 0 RF: 0 lactulose 20 GM/30 ML solution 20 gm PO BID Qty: 0 RF: 0 spironolactone 100 MG tablet 100 mg PO DAILY PRN (Reason: fluid over load) Qty: 0 RF: 0 cholecalciferol (vitamin D3) [Vitamin D3] 1,000 UNIT tablet 1,000 unit PO DAILY Qty: 0 RF: 0 trazodone 50 MG tablet 100 mg PO BEDTIME Qty: 0 RF: 0 ranitidine HCl 150 MG tablet 150 mg PO BID Qty: 0 RF: 0 amitriptyline 25 MG tablet 100 mg PO BEDTIME Qty: 0 RF: 0 gabapentin 300 mg capsule 900 mg PO BEDTIME RF: 0 alendronate 70 mg tablet 70 mg PO QWEEK RF: 0 bupropion HCl [Wellbutrin XL] 150 MG tablet extended release 24 hr 150 mg PO DAILY RF: 0 ondansetron HCl 4 mg tablet 4 mg PO QID PRN (Reason: Nausea And Vomiting) RF: 0 potassium chloride 20 mEq tablet,ER particles/crystals 20 meq PO TID RF: 0 calcium carbonate [Calcium 500] 500 mg calcium (1,250 mg) Tablet 2 tab PO DAILY RF: 0 Referrals: Roberto Carlos Sood MD [Primary Care Provider] -
[2019-03-02] MEDS: ALBUTEROL 2.5 MG/3 ML NEB (ADULT) INH (20:25)
--- NOTE | 2019-03-02 20:39 | DI.CT.S_ITS ---
PROCEDURE: CT ANGIO CHEST PE PROTOCOL INDICATIONS: short of breath TECHNIQUE: After the administration of intravenous contrast, 2 mm thick sections acquired from the pulmonary apices to the posterior costophrenic angles. 3-dimensional maximum intensity projection (MIP) coronal and sagittal reformats were then acquired through the thorax. For radiation dose reduction, the following was used: automated exposure control, adjustment of mA and/or kV according to patient size. COMPARISON: [facility], CT, ABDOMEN/PELVIS WITH CONTRAST, 03/05/2017, 22:18. [facility], CT, PE STUDY (CTA CHEST), 03/06/2017, 10:28. FINDINGS: Image quality: Excellent. Pulmonary arteries: Pulmonary arteries are normal in size, and demonstrate no intraluminal filling defects to suggest central pulmonary embolism. Lungs and pleura: Lungs are clear. No pleural effusions or pneumothorax. Central and peripheral airways are patent. Mediastinum: Heart size is normal, without pericardial effusion. No mediastinal or hilar adenopathy. Thoracic aorta is normal in caliber and enhancement. Esophagus is normal in caliber. There is a small hiatal hernia. Bones and chest wall: No suspicious bony lesions. Ribs and thoracic spine appear intact throughout. Thyroid gland is normal. No axillary or supraclavicular adenopathy. Bilateral breast implants are noted. Abdomen: Stomach is distended. There is also dilation and air-fluid level in the hepatic flexure of colon with air-fluid levels. Liver demonstrates nodular contour. IMPRESSION: 1. No evidence for pulmonary embolism. 2. No acute cardiopulmonary process. 3. Dilated stomach and hepatic flexure of colon with air-fluid levels. The finding is nonspecific. Recommend clinical correlation with gastroenteritis. 4. Liver demonstrates nodular contour. Please correlate with liver enzymes. 5. Small hiatal hernia. No significant discrepancy with the shift mgr radiology preliminary report. Dictated by: Dileep Pichardo M.D. on 03/03/2019 at 7:34 Approved by: Dileep Pichardo M.D. on 03/03/2019 at 7:42
[2019-03-02 21:00] VITALS: TEMP 36.8
[2019-03-02 21:16] LABS: Pregnancy Test Serum,Qual Negative (Negative)
[2019-03-02 21:51] VITALS: BP 95/72; PULSE 95; RESP 12; O2SAT 100
[2019-03-02 22:34] VITALS: BP 93/68; PULSE 91; RESP 12; O2SAT 100
[2019-03-03] VITALS: BP 94/64; PULSE 93; RESP 16; O2SAT 98
[2019-03-03] MEDS: ALBUTEROL HFA PREPACK 1 BOX MISC (00:06)
--- NOTE | 2019-03-03 02:49 | ED_ITS ---
HPI - SOB/Dyspnea General Chief Complaint: Abdominal Pain Stated Complaint: DIFFICULTY BREATHING Time Seen by Provider: 03/02/19 19:43 Source: patient Mode of arrival: ambulatory Limitations: no limitations History of Present Illness Patient is a 33-year-old female who has multiple medical problems. She has a history of alcoholism, ascites, anorexia, and CVA. Presents today with what she calls the can't get enough air. She says she takes a deep breath but does not feel like she is getting enough oxygen. Then makes it feel like her stomach sort of hurts. She denies any chest pain. She has no shortness of breath with exertion no fever no cough. She has no of localization of abdominal pain no nausea vomiting. She is leaving for a trip in few days and wants to make sure that she is okay. She has had some stairs complications past and is just worried. MD Complaint: shortness of breath Severity: mild Consistency/Duration: intermittent Related Data Home Medications Medication Instructions Recorded Confirmed lorazepam 1 mg PO BIDP PRN #0 09/13/17 03/02/19 sertraline 25 mg PO BEDTIME #0 09/13/17 03/02/19 cholecalciferol (vitamin D3) 1,000 unit PO DAILY #0 09/18/17 03/02/19 [Vitamin D3] lactulose 20 gm PO BID #0 09/18/17 03/02/19 spironolactone 100 mg PO DAILY PRN #0 09/18/17 03/02/19 trazodone 100 mg PO BEDTIME #0 09/18/17 03/02/19 amitriptyline 100 mg PO BEDTIME #0 12/03/17 03/02/19 ranitidine HCl 150 mg PO BID #0 12/03/17 03/02/19 gabapentin 900 mg PO BEDTIME 07/23/18 03/02/19 alendronate 70 mg PO QWEEK 10/22/18 03/02/19 bupropion HCl [Wellbutrin XL] 150 mg PO DAILY 10/22/18 03/02/19 calcium carbonate [Calcium 500] 2 tab PO DAILY 10/22/18 03/02/19 ondansetron HCl 4 mg PO QID PRN 10/22/18 03/02/19 potassium chloride 20 meq PO TID 10/22/18 03/02/19 Allergies Allergy/AdvReac Type Severity Reaction Status Date / Time No Known Drug Allergies Allergy Verified 03/02/19 19:18 Review of Systems Review of Systems ROS Unobtainable: All systems reviewed & are unremarkable except as noted in HPI and below Constitutional Denies chills, Denies fever(s), Denies lethargy and Denies weakness Eyes Denies change in vision, Denies eye discharge, Denies irritation and Denies loss of vision ENT Ears, Nose, Mouth, and Throat: Denies change in voice, Denies neck pain and Denies sore throat Cardiovascular Denies chest pain, Denies irregular heart rhythm, Denies lightheadedness, Denies palpitations and Denies orthopnea Respiratory Reports as per HPI Gastrointestinal Gastrointestinal: Denies abdominal pain, Denies change in bowel habits, Denies diarrhea, Denies nausea and Denies vomiting Genitourinary Denies hematuria, Denies flank pain, Denies urinary incontinence and Denies urinary urgency Musculoskeletal Denies neck pain Integumentary/Breasts Denies pruritus, Denies erythema, Denies rash and Denies wounds Neurologic Denies loss of vision and Denies weakness Endocrine Denies palpitations [facility] Medical History Alcoholism (Acute) Anorexia (Acute) Social History Smoking Status: Former smoker Social History Smoking Status: Former smoker Exam Initial Vital Signs Initial Vital Signs: Vital Signs Temperature 99.1 F 03/02/19 19:13 Pulse Rate 110 H 03/02/19 19:13 Respiratory Rate 18 03/02/19 19:13 Blood Pressure 102/70 03/02/19 19:13 Pulse Oximetry 96 03/02/19 19:13 GENERAL: Thin well-appearing young female and in [no acute] distress. HEENT: Head atraumatic,EOMI, pupils reactive, CARDIOVASCULAR: Regular rate and rhythm without murmurs, rubs or gallops. RESPIRATORY: Breath sounds equal bilaterally, no wheezes rales or rhonchi. ABDOMEN: Soft, nontender. Normoactive bowel sounds all 4 quadrants. No guarding or rebound. No ascites no fluid wave : No CVA tenderness EXTREMITIES: Normal range of motion, no clubbing or edema. Neurovascularly intact NEUROLOGICAL: Alert and oriented x4.Normal gait and speech. Cranial nerves II through XII grossly intact. SKIN: Warm, dry, no laceration, no petechiae, no rashes or lesions. Course Orders Ordered: ED Orders 03/02/19 19:23 EKG-12 Lead Stat 03/02/19 19:28 Complete Blood Count AUTO DIFF Stat Comprehensive Metabolic Panel Stat Lipase Stat Partial Thromboplastin Time Stat Prothrombin Time INR Stat 03/02/19 20:18 XR chest 2V Stat 03/02/19 20:39 CT angio chest PE protocol Stat 03/02/19 21:06 Test Serum,Qual Stat Discontinued Medications Albuterol (Ventolin) 2.5 mg INH NOW ONE Stop: 03/02/19 20:19 Last Admin: 03/02/19 20:25 Dose: 2.5 mg Albuterol (Ventolin Hfa Prepack) 1 box MISC SEEINSTR ONE Stop: 03/02/19 23:59 Last Admin: 03/03/19 00:06 Dose: 1 box Vital Signs - 8 hr 03/02/19 19:13 03/02/19 19:52 03/02/19 21:00 Temperature 99.1 F 98.2 F Pulse Rate 110 H 96 H Respiratory Rate 18 14 Blood Pressure 102/70 Blood Pressure [Left Arm] 105/80 Pulse Oximetry 96 96 03/02/19 21:51 03/02/19 22:34 03/03/19 00:00 Temperature Pulse Rate 95 H 91 H 93 H Respiratory Rate 12 12 16 Blood Pressure Blood Pressure [Left Arm] 95/72 93/68 94/64 Pulse Oximetry 100 100 98 MDM - SOB/Dyspnea Lab Data Attestation: I reviewed the patient's lab results. Result diagrams: 03/02/19 19:28 03/02/19 19:28 Lab Results 03/02/19 03/02/19 03/02/19 Range/Units 19:28 19:28 19:28 WBC 3.7 L (4.5-11.0) X10^3/uL RBC 3.28 L (4.0-5.2) X10^6/uL Hgb 11.7 L (12.0-16.0) g/dL Hct 33.3 L (36-46) % MCV 101.5 H (80-100) fL MCH 35.8 H (26-34) PG MCHC 35.3 (30-36) % RDW 13.5 (11.6-14.8) % Plt Count 254 (150-400) X10^3/uL Neut % (Auto) 45.5 L (50-75) % Lymph % (Auto) 38.6 (25-40) % [place] % (Auto) 15.0 H (3-14) % Eos % (Auto) 0.3 L (2-4) % Baso % (Auto) 0.6 (0-2) % Neut # (Auto) 1700 (6121-6364) /uL Lymph # (Auto) 1400 (3324-9508) /uL [place] # (Auto) 500 (0-900) /uL Eos # (Auto) 0 (0-450) /uL Baso # (Auto) 0 (0-100) /uL PT 11.7 (10.1-12.7) SECONDS INR 1.0 (0.9-1.3) APTT 31 (26.4-36.2) SECONDS Sodium 136 L (137-145) mmol/L Potassium 3.5 (3.4-5.1) mmol/L Chloride 93 L (98-107) mmol/L Carbon Dioxide 30 (22-32) mmol/L BUN 5 L (7-17) mg/dL Creatinine 0.70 (0.52-1.04) mg/dL Estimated GFR > 60.0 (>60) mL/min BUN/Creatinine Ratio 7.1 (6-22) Glucose 77 (70-100) mg/dL Calcium 9.3 (8.4-10.2) mg/dL Total Bilirubin 0.4 (0.2-1.3) mg/dL AST 67 H (14-36) IU/L ALT 17 (9-52) IU/L Alkaline Phosphatase 181 H (38-126) U/L Total Protein 7.0 (6.3-8.2) g/dL Albumin 3.8 (3.5-5.0) g/dL Globulin 3.2 (1.7-4.1) g/dL Albumin/Globulin Ratio 1.2 (1.0-2.8) Lipase 35 (23-300) U/L Serum , Qual (Negative) 03/02/19 Range/Units 21:06 WBC (4.5-11.0) X10^3/uL RBC (4.0-5.2) X10^6/uL Hgb (12.0-16.0) g/dL Hct (36-46) % MCV (80-100) fL MCH (26-34) PG MCHC (30-36) % RDW (11.6-14.8) % Plt Count (150-400) X10^3/uL Neut % (Auto) (50-75) % Lymph % (Auto) (25-40) % [place] % (Auto) (3-14) % Eos % (Auto) (2-4) % Baso % (Auto) (0-2) % Neut # (Auto) (8626-8641) /uL Lymph # (Auto) (8141-8926) /uL [place] # (Auto) (0-900) /uL Eos # (Auto) (0-450) /uL Baso # (Auto) (0-100) /uL PT (10.1-12.7) SECONDS INR (0.9-1.3) APTT (26.4-36.2) SECONDS Sodium (137-145) mmol/L Potassium (3.4-5.1) mmol/L Chloride (98-107) mmol/L Carbon Dioxide (22-32) mmol/L BUN (7-17) mg/dL Creatinine (0.52-1.04) mg/dL Estimated GFR (>60) mL/min BUN/Creatinine Ratio (6-22) Glucose (70-100) mg/dL Calcium (8.4-10.2) mg/dL Total Bilirubin (0.2-1.3) mg/dL AST (14-36) IU/L ALT (9-52) IU/L Alkaline Phosphatase (38-126) U/L Total Protein (6.3-8.2) g/dL Albumin (3.5-5.0) g/dL Globulin (1.7-4.1) g/dL Albumin/Globulin Ratio (1.0-2.8) Lipase (23-300) U/L Serum , Qual Negative (Negative) Point of Care Testing Test Results Negative Urine Dip Bedside Urine Glucose Negative Bedside Urine Bilirubin - Negative Bedside Urine Ketone - Negative Urine Specific [place] 1.010 Bedside Urine Occult Blood - Negative Bedside Urine pH 8.5 Bedside Urine Protein - Negative Bedside Urine Urobilinogen - Negative Bedside Urine Nitrite - Negative Bedside Urine Leukocytes - Negative Esterase Imaging Data Chest x-ray: Radiologist's impression: PROCEDURE: XR CHEST 2V INDICATIONS: short of breath TECHNIQUE: 2 views of the chest were acquired. COMPARISON: None. FINDINGS: Surgical changes and devices: None. Lungs and pleura: Lungs are clear. No pleural effusions or pneumothorax. Mediastinum: Mediastinal contours are normal. Heart size is normal. Bones and chest wall: No suspicious bony abnormalities. Soft tissues appear unremarkable. IMPRESSION: No acute process. Dictated by: Monica Jerome M.D. on 03/02/2019 at 20:39 CT scan - chest: Radiologist's impression: shift coordinator report: No PE or dissection clear lungs bilateral intact appearing breast implant ECG Data Attestation: I personally reviewed and interpreted this ECG as follows: Prior ECG tracings: available for review Interpretation: Normal sinus rhythm rate [address] changes no T-wave inversions MDM Narrative Medical decision making narrative: Patient appears well. She was worried initially her electrolytes were abnormal however her potassium is within normal limits she says typically that 1 is abnormal. Patient has multiple com orbidities atypical symptoms of things in the past. Need to rule out PE. No evidence of PE on CT. Initially he stated the albuterol did not help for however after sitting for awhile she says it actually feels better and would like an albuterol inhaler to go home with. Discharge Plan Departure Patient Disposition: Home Clinical Impression: Mild reactive airways disease Qualifiers: Asthma persistence: intermittent Asthma complication type: uncomplicated Qualified Code(s): J45.20 - Mild intermittent asthma, uncomplicated Discharge Date/Time: 03/03/19 00:06 Interventions: ED Discharge Assessment Last Done: 03/03/19 00:06 Instructions: DI for Reactive Airway Disease-Adult Activity Restrictions/Additional Instructions: *You have been diagnosed with reactive airway *What to do: Symptoms likely caused by bronchospasm *Continue to take medications as directed Albuterol 1-2 puffs with spacer every 4 hours if needed for shortness of breath *Follow up with your primary care provider in 2-3 days *Return to ER if you should have no relief with albuterol needing frequent albuterol, increasing shortness of breath or any new, worsening or concerning symptoms Prescriptions: No Action sertraline 25 MG tablet 25 mg PO BEDTIME Qty: 0 RF: 0 lorazepam 1 MG tablet 1 mg PO BIDP PRN (Reason: Anxiety) Qty: 0 RF: 0 lactulose 20 GM/30 ML solution 20 gm PO BID Qty: 0 RF: 0 spironolactone 100 MG tablet 100 mg PO DAILY PRN (Reason: fluid over load) Qty: 0 RF: 0 cholecalciferol (vitamin D3) [Vitamin D3] 1,000 UNIT tablet 1,000 unit PO DAILY Qty: 0 RF: 0 trazodone 50 MG tablet 100 mg PO BEDTIME Qty: 0 RF: 0 ranitidine HCl 150 MG tablet 150 mg PO BID Qty: 0 RF: 0 amitriptyline 25 MG tablet 100 mg PO BEDTIME Qty: 0 RF: 0 gabapentin 300 mg capsule 900 mg PO BEDTIME RF: 0 alendronate 70 mg tablet 70 mg PO QWEEK RF: 0 bupropion HCl [Wellbutrin XL] 150 MG tablet extended release 24 hr 150 mg PO DAILY RF: 0 ondansetron HCl 4 mg tablet 4 mg PO QID PRN (Reason: Nausea And Vomiting) RF: 0 potassium chloride 20 mEq tablet,ER particles/crystals 20 meq PO TID RF: 0 calcium carbonate [Calcium 500] 500 mg calcium (1,250 mg) Tablet 2 tab PO DAILY RF: 0 Referrals: Roberto Carlos Sood MD [Primary Care Provider] -
== END 2019-03-03 00:06 | disposition home or self-care (01) ==
PROVIDERS: Emergency Provider Emergency Medicine; Family Provider Internal Medicine; PCP Internal Medicine
DX: J45.20 Mild intermittent asthma, uncomplicated (principal); R00.0 Tachycardia, unspecified
CPT/HCPCS: 36591; 71046; 71275; 80053; 81003; 81025; 83690; 84703; 85025; 85610; 85730; 93005; 94640; 99283; 99285; J7613

== ENCOUNTER → 2019-05-17 09:21 | Outpatient (CLI) | payer OTHER, MEDICAID, SELFPAY ==
--- NOTE | 2019-05-17 | DI.MRI.S_ITS ---
PROCEDURE: MR ANGIO NECK W CON INDICATIONS: Cervicalgia TECHNIQUE: Axial and sagittal TruFISP through the neck. Coronal dynamic MRA after the administration of contrast in the arterial and venous phases, with rotating 3-dimensional maximum intensity projection (MIP) reformats constructed from subtraction images. COMPARISON: [facility], CT, HEAD WITHOUT CONTRAST, 12/24/2017, 17:04. FINDINGS: Image quality: Excellent. Carotid system: Great vessels demonstrate a conventional anatomy as they arise from the aortic arch. The origins of the common carotid arteries appear normal. The calibers and courses of the common carotid arteries are likewise normal. The carotid bifurcations appear normal bilaterally. The internal carotid arteries are widely patent up to the [place]. There is a hypoplastic right A1 segment, with a corresponding robust left A1 segment. This is considered to be a normal developmental variant of the [place], of typically no clinical consequence. Posterior circulation: The origins of the vertebral arteries are unremarkable. The more superior portions of the vertebral arteries demonstrate normal course and caliber. Vertebral arteries join to form a normal appearing basilar artery. Miscellaneous: Subclavian arteries are patent throughout. Pre-contrast images through the neck demonstrate no soft tissue abnormalities. IMPRESSION: No significant narrowing can be seen of the carotid or vertebral arteries. Any quantitative measurements of stenosis were performed using NASCET criteria. Dictated by: Sj Reyes M.D. on 05/17/2019 at 10:51 Approved by: Sj Reyes M.D. on 05/17/2019 at 10:54
== END ==
PROVIDERS: Family Provider Internal Medicine; PCP Internal Medicine; Visit Provider Internal Medicine
DX: M54.2 Cervicalgia (principal)
CPT/HCPCS: 70548

== ENCOUNTER → 2019-07-06 12:09 | Outpatient (CLI) | payer OTHER, MEDICAID, SELFPAY ==
[2019-07-06 12:50] LABS: Add Manual Diff / Slide Review NO; Basophils Absolute Auto 0 /uL (0-100); Basophils Percent Auto 1.3 % (0-2); Eosinophils Absolute Auto 0 /uL (0-450); Eosinophils Percent Auto 0.4 % (2-4); Hemoglobin 12.7 g/dL (12.0-16.0); Lymphocytes Absolute Auto 900 /uL (1100-4500); Lymphocytes Percent Auto 41.9 % (25-40); Mean Corpuscular HGB Conc 35.3 % (30-36); Mean Corpuscular Hemoglobin 36.5 PG (26-34); Mean Corpuscular Volume 103.5 fL (80-100); Monocytes Absolute Auto 300 /uL (0-900); Monocytes Percent Auto 15.3 % (3-14); Neutrophils Absolute Auto 900 /uL (1500-7000); Neutrophils Percent Auto 41.1 % (50-75); Platelet Count 234 X10^3/uL (150-400); Red Blood Cell Count 3.48 X10^6/uL (4.0-5.2); Red Cell Distribution Width 14.1 % (11.6-14.8); White Blood Cell Count 2.1 X10^3/uL (4.5-11.0)
[2019-07-06 13:42] LABS: Alanine Aminotransferase 39 IU/L (9-52); Albumin 4.4 g/dL (3.5-5.0); Albumin Globulin Ratio 1.3 (1.0-2.8); Alkaline Phosphatase 332 U/L (38-126); Aspartate Aminotransferase 103 IU/L (14-36); BUN Creatinine Ratio 8.6 (6-22); Bilirubin Total 0.7 mg/dL (0.2-1.3); Blood Urea Nitrogen 6 mg/dL (7-17); Calcium 10.2 mg/dL (8.4-10.2); Chloride 82 mmol/L (98-107); Estimated Glomerular Filt Rate > 60.0 mL/min (>60); Globulin 3.5 g/dL (1.7-4.1); Glucose 100 mg/dL (70-100); HEMOLYSIS < 15 (0-50); Potassium 3.2 mmol/L (3.4-5.1); Sodium 136 mmol/L (137-145); Total Protein 7.9 g/dL (6.3-8.2)
[2019-07-06 13:59] LABS: Carbon Dioxide 43 mmol/L (22-32)
[2019-07-06 14:10] LABS: TSH w/ Reflex to FT4 1.54 uIU/mL (0.47-4.68)
== END ==
PROVIDERS: PCP Internal Medicine; Visit Provider Internal Medicine
DX: K70.40 Alcoholic hepatic failure without coma (principal); R63.4 Abnormal weight loss; E44.0 Moderate protein-calorie malnutrition
CPT/HCPCS: 36415; 80053; 83735; 84443; 85025

== ENCOUNTER 2020-04-03 10:47 | Emergency (ER) | payer OTHER, MEDICAID, SELFPAY ==
[2020-04-03 10:56] VITALS: BP 115/72; PULSE 96; RESP 16; TEMP 36.7; O2SAT 98; BMI 17.4
--- NOTE | 2020-04-03 11:01 | DI.RAD.S_ITS ---
PROCEDURE: XR FOOT RT MIN 3V INDICATIONS: unknown swelling TECHNIQUE: 3 views of the foot were acquired. COMPARISON: [facility], CR, XR FOOT LT MIN 3V, 05/12/2018, 6:31. [facility], CR, FOOT 3V LEFT, 09/13/2017, 13:06. FINDINGS: Bones: No fractures or dislocations. No suspicious bony lesions. Soft tissues: No tibiotalar joint effusion. Achilles tendon appears normal. IMPRESSION: No trauma found. Dictated by: Roberto Carlos Eckert M.D. on 04/03/2020 at 12:07 Approved by: Roberto Carlos Eckert M.D. on 04/03/2020 at 12:08
--- NOTE | 2020-04-03 11:15 | PC.NURSE ---
Reports recent right hip surgery due to avascular necrosis. Right ankle swollen most painful in heel and behind heel. Able to bear weight, but it is painful.
--- NOTE | 2020-04-03 11:29 | ED.LOWEXIN ---
HPI - Extremity Injury (Lower) <Aminata Ed, TEXTURE ARTIST-BC - Last Filed: 04/03/20 14:47> General Chief Complaint: Extremity Injury, Lower Stated Complaint: did something to right ankle Time Seen by Provider: 04/03/20 11:09 Source: patient Mode of arrival: Ambulatory Limitations: no limitations History of Present Illness HPI Narrative: The patient is a 34-year-old female nonsmoker with history of right-sided hip replacement, stroke, vertebral artery dissection who presents with a chief complaint of a swollen painful right foot. She states it started yesterday. Denies any shortness of breath but does complain of some calf tenderness. She states she had her hip replaced last month. She has not taken anything for the pain of her right ankle or foot. She denies any falls or trauma to the right ankle or foot. She has applied ice. She complains of swelling extending from distal to bilateral malleoli up bilateral sides of calf. The patient states that she took a muscle relaxer, methocarbamol, and that it improved. However she does not anymore methocarbamol Related Data Home Medications Medication Instructions Recorded Confirmed lorazepam 1 mg PO BIDP PRN #0 09/13/17 04/04/20 sertraline 25 mg PO BEDTIME #0 09/13/17 04/04/20 cholecalciferol (vitamin D3) 1,000 unit PO DAILY #0 09/18/17 04/04/20 [Vitamin D3] lactulose 20 gm PO BID #0 09/18/17 04/04/20 spironolactone 100 mg PO DAILY PRN #0 09/18/17 04/04/20 trazodone 100 mg PO BEDTIME #0 09/18/17 04/04/20 amitriptyline 100 mg PO BEDTIME #0 12/03/17 04/04/20 alendronate 70 mg PO QWEEK 10/22/18 04/04/20 bupropion HCl [Wellbutrin XL] 150 mg PO DAILY 10/22/18 04/04/20 calcium carbonate [Calcium 500] 2 tab PO DAILY 10/22/18 04/04/20 ondansetron HCl 4 mg PO QID PRN 10/22/18 04/04/20 potassium chloride 20 meq PO TID 10/22/18 04/04/20 famotidine PO 04/04/20 04/04/20 tramadol PO 04/04/20 04/04/20 Previous Rx's Medication Instructions Recorded methocarbamol 750 mg PO TID PRN #14 tab 04/03/20 Allergies Allergy/AdvReac Type Severity Reaction Status Date / Time No Known Drug Allergies Allergy Verified 04/04/20 11:43 Review of Systems <YAQUELIN Bullock - Last Filed: 04/03/20 14:47> Review of Systems Narrative: GENERAL: Denies chills, fatigue, malaise, fever, sweats. HEENT: Denies sinus pain, ear pain, sore throat, difficulty swallowing, dizziness. RESPIRATORY: Denies dyspnea, cough, wheezing, hemoptysis, sputum. CARDIOVASCULAR: Denies chest pain, palpitations, orthopnea, edema, GASTROINTESTINAL: Denies nausea, vomiting, abdominal pain, diarrhea, constipation, melena. : Denies dysuria, frequency, incontinence, hematuria, urinary retention. MUSCULOSKELETAL: See HPI SKIN: Denies rash, skin lesions, or other NEUROLOGIC: Denies weakness, headache, numbness, change in speech, confusion, seizures, incoordination. PSYCHIATRIC: No concerning psychosocial issues. 12 point review of systems is negative except for those stated above Patient History <YAQUELIN Bullock - Last Filed: 04/03/20 14:47> Medical History Alcoholism (Acute) Anorexia (Acute) Social History Smoking Status: Never smoker Smoking Status: Never smoker alcohol intake frequency: 0-2 drinks per day Substance Use Type: does not use Exam <YAQUELIN Bullock - Last Filed: 04/03/20 14:47> Narrative Exam Narrative: GENERAL: This is a well-nourished, well-developed patient, in no acute distress HEAD: Atraumatic. Normocephalic. No temporal or scalp tenderness. EYES: Pupils equal round and reactive. Extraocular motions intact. No scleral icterus. No injection or drainage. ENT: Nose without bleeding, purulent drainage or septal hematoma. Throat without erythema, tonsillar hypertrophy or exudate. Uvula midline. Airway patent. NECK: Trachea midline. No JVD or lymphadenopathy. Supple, nontender, no meningeal signs. CARDIOVASCULAR: Regular rate and rhythm RESPIRATORY: No cough. No increased respiratory effort. History muscle use. EXTREMITIES: Foot with slight swelling distal to lateral and medial malleoli. Positive pedal pulses. Pain to palpation of right calf. Able to flex and extend right foot. BACK: Nontender without deformity or crepitance. No flank tenderness. NEURO: AOx3. SKIN: No rash or erythema on visible skin. Initial Vital Signs Initial Vital Signs: Vital Signs Temperature 98.1 F 04/03/20 10:56 Pulse Rate 96 H 04/03/20 10:56 Respiratory Rate 16 04/03/20 10:56 Blood Pressure 115/72 04/03/20 10:56 Pulse Oximetry 98 04/03/20 10:56 <Pattie Kendall DO - Last Filed: 04/07/20 07:04> Initial Vital Signs Initial Vital Signs: Vital Signs Temperature 98.1 F 04/03/20 10:56 Pulse Rate 96 H 04/03/20 10:56 Respiratory Rate 16 04/03/20 10:56 Blood Pressure 115/72 04/03/20 10:56 Pulse Oximetry 98 04/03/20 10:56 Scores <YAQUELIN Bullock - Last Filed: 04/03/20 14:47> GCS Jean-Paul coma scale eye opening: Spontaneous [place] coma scale verbal response: Orientated Jean-Paul coma scale motor response: Obey commands Jean-Paul coma scale total score: 15 Course <YAQUELIN Bullock - Last Filed: 04/03/20 14:47> Orders Ordered: ED Orders 04/03/20 11:01 XR foot RT min 3V Stat 04/03/20 11:28 US periph venous low extrem rt Stat Vital Signs Vital signs: Vital Signs - 8 hr 04/03/20 10:56 04/03/20 13:03 04/03/20 13:08 Temperature 98.1 F Pulse Rate 96 H 104 H 89 Respiratory Rate 16 16 Blood Pressure 115/72 125/71 Pulse Oximetry 98 100 <Pattie Kendall DO - Last Filed: 04/07/20 07:04> Orders Ordered: ED Orders 04/03/20 11:01 XR foot RT min 3V Stat 04/03/20 11:28 US periph venous low extrem rt Stat Vital Signs Vital signs: Vital Signs - 8 hr 04/03/20 10:56 04/03/20 13:03 04/03/20 13:08 Temperature 98.1 F Pulse Rate 96 H 104 H 89 Respiratory Rate 16 16 Blood Pressure 115/72 125/71 Pulse Oximetry 98 100 MDM - Extremity Injury (Lower) <YAQUELIN Bullock - Last Filed: 04/03/20 14:47> Imaging Data US - DVT: Radiologist's Impression: [address] [place] [id number] Ultrasound Report Signed Patient: Naina Wing LMR#: [id number] : 1985Acct:[id number] Age/Sex: 34 / FDate of Service: 04/03/20 Loc: ED Accession Number: [id number] Procedure: US periph venous low extrem rt Ordering Provider: Aminata Ward PROCEDURE: US PERIPH VENOUS LOW EXTREM RT INDICATIONS: RIGHT ANKLE EDEMA 1 MONTH POST HIP REPLACEMENT TECHNIQUE: Real-time imaging, as well as color and pulse Doppler interrogation, were performed of the lower extremity deep veins from the inguinal ligament to the popliteal fossa. COMPARISON: None. FINDINGS: The common femoral, femoral and popliteal veins are normally compressible, and free of intraluminal thrombus. Color and pulse Doppler demonstrate normal phasic intraluminal flow. There is normal augmentation response to distal compression maneuver. IMPRESSION: No DVT found. Dictated by: Roberto Carlos Eckert M.D. on 04/03/2020 at 12:22 Approved by: Roberto Carlos Eckert M.D. on 04/03/2020 at 12:23 Extremity x-ray #1: Radiologist's Impression: [address] [place] [id number] XRay Report Signed Patient: Naina Wing LMR#: [id number] : 1985Acct:[id number] Age/Sex: 34 / FDate of Service: 04/03/20 Loc: ED Accession Number: [id number] Procedure: XR foot RT min 3V Ordering Provider: Pattie Kendall D.O. PROCEDURE: XR FOOT RT MIN 3V INDICATIONS: unknown swelling TECHNIQUE: 3 views of the foot were acquired. [facility] 6[facility], CR, FOOT 3V LEFT, 09/13/2017, 13:06. FINDINGS: Bones: No fractures or dislocations. No suspicious bony lesions. Soft tissues: No tibiotalar joint effusion. Achilles tendon appears normal. IMPRESSION: No trauma found. Dictated by: Roberto Carlos Eckert M.D. on 04/03/2020 at 12:07 Approved by: Roberto Carlos Eckert M.D. on 04/03/2020 at 12:08 [facility] Narrative Medical decision making narrative: The patient is a 34-year-old female who presents with a chief complaint of right lower leg pain. She has no known falls or trauma. Foot x-ray is negative. Ultrasound for DVT is negative. Patient states that she improves at home with a dose of methocarbamol, so I did give her prescription of this. Encouraged following up with primary care provider as well as coming back to the emergency department for any acute concerns. Encouraged rest ice compression elevation as well as [id number] medications as needed and able. Patient has no questions or concerns upon discharge and states understanding of return precautions as well as follow-up care. Discharge Plan Departure Patient Disposition: Home Clinical Impression: Foot pain, right, Leg pain, right Discharge Date/Time: 04/03/20 13:10 Instructions: DI for Ankle Pain, DI for Foot Pain, DI for Leg Pain Activity Restrictions/Additional Instructions: As I discussed, your foot x-ray shows no acute fracture. This does not rule out a soft tissue injury such as a ligament or tendon injury. It is important that you follow up with primary care provider, especially if worsening or no improvement. There can be fractures that did not show up on initial x-ray. Additionally, your vascular ultrasound does not show any evidence of blood clot I sent prescription of a muscle relaxer to [facility]. Please be aware this can be sedating. Do not take and drive or take it with any other sedating agents. Please use rest ice compression elevation as well as other [id number] pain medications as needed and able Please follow-up with primary care provider as scheduled tomorrow Please come back to the emergency department for any acute concerns such as shortness of breath, chest pain etcetera Prescriptions: New methocarbamol 750 mg tablet 750 mg PO TID PRN (Reason: muscle spasm) Qty: 14 RF: 0 No Action sertraline 25 MG tablet 25 mg PO BEDTIME Qty: 0 RF: 0 lorazepam 1 MG tablet 1 mg PO BIDP PRN (Reason: Anxiety) Qty: 0 RF: 0 lactulose 20 GM/30 ML solution 20 gm PO BID Qty: 0 RF: 0 spironolactone 100 MG tablet 100 mg PO DAILY PRN (Reason: fluid over load) Qty: 0 RF: 0 cholecalciferol (vitamin D3) [Vitamin D3] 1,000 UNIT tablet 1,000 unit PO DAILY Qty: 0 RF: 0 trazodone 50 MG tablet 100 mg PO BEDTIME Qty: 0 RF: 0 amitriptyline 25 MG tablet 100 mg PO BEDTIME Qty: 0 RF: 0 famotidine PO RF: 0 tramadol PO RF: 0 alendronate 70 mg tablet 70 mg PO QWEEK RF: 0 bupropion HCl [Wellbutrin XL] 150 MG tablet extended release 24 hr 150 mg PO DAILY RF: 0 ondansetron HCl 4 mg tablet 4 mg PO QID PRN (Reason: Nausea And Vomiting) RF: 0 potassium chloride 20 mEq tablet,ER particles/crystals 20 meq PO TID RF: 0 calcium carbonate [Calcium 500] 500 mg calcium (1,250 mg) Tablet 2 tab PO DAILY RF: 0 Referrals: Toño Dunlap ARNP [Primary Care Provider] - <Pattie Kendall DO - Last Filed: 04/07/20 07:04> Cosign ED Attending Ming Attestation: I was immediately available in the department for consultation. Documentation has been reviewed. I agree with assessment and plan.
[2020-04-03 13:03] VITALS: BP 125/71; PULSE 104; RESP 16; O2SAT 100
[2020-04-03 13:08] VITALS: PULSE 89
== END 2020-04-03 13:10 | disposition home or self-care (01) ==
PROVIDERS: Emergency Provider Nurse Practitioner Family; PCP Registered Nurse Diabetes Educator
DX: M79.671 Pain in right foot (principal); M79.604 Pain in right leg; Z96.641 Presence of right artificial hip joint
CPT/HCPCS: 73630; 93971; 99283

== ENCOUNTER → 2020-05-15 12:23 | Outpatient (CLI) | payer OTHER, MEDICAID, SELFPAY ==
--- NOTE | 2020-05-15 | DI.RAD.S_ITS ---
PROCEDURE: XR HIP W PEL IF DONE LT 2V INDICATIONS: POST TOTAL LEFT HIP REPLACEMENT TECHNIQUE: AP pelvis with lateral view(s) of the left hip(s). [facility] 21:38. FINDINGS: Bones: Expected postoperative alignment of left hip arthroplasty. Right hip arthroplasty also noted. No fracture. Presumed postsurgical changes at the greater trochanter Soft tissues: The visualized bowel gas pattern is normal. No suspicious soft tissue calcifications. IMPRESSION: Expected postoperative alignment as above. Dictated by: Chano Sierra M.D. on 05/15/2020 at 12:48 Approved by: Chano Sierra M.D. on 05/15/2020 at 12:51
== END ==
PROVIDERS: PCP Registered Nurse Diabetes Educator; Referring Provider Orthopaedic Surgery; Visit Provider Orthopaedic Surgery
DX: M25.552 Pain in left hip (principal); Z96.643 Presence of artificial hip joint, bilateral
CPT/HCPCS: 73502

== ENCOUNTER → 2020-07-19 12:51 | Outpatient (CLI) | payer OTHER, MEDICAID, SELFPAY ==
--- NOTE | 2020-07-19 | DI.RAD.S_ITS ---
PROCEDURE: XR HIP W PEL IF DONE LT 2V INDICATIONS: status post hip replacement, hip pain TECHNIQUE: AP pelvis with AP and frogleg lateral views of the left hip. COMPARISON: [facility], , XR HIP W PEL IF DONE LT 2V, 05/15/2020, 12:24. FINDINGS: Bones: Postsurgical changes are seen from bilateral total hip arthroplasties. The metallic hardware appears intact with unchanged alignment. An area of sclerosis at the inferior pubic ramus is new when compared to the radiographs from 05/15/2020 and may represent a healing fracture. Mild heterotopic calcification is seen adjacent to the left greater trochanter. Soft tissues: The visualized bowel gas pattern is normal. No suspicious soft tissue calcifications. IMPRESSION: 1. Stable postsurgical changes from bilateral total hip arthroplasties. 2. New area of sclerosis in the left inferior pubic ramus is suspicious for a possible healing fracture. Further evaluation with CT or MRI may be obtained for confirmation if indicated. Dictated by: Francisco Scott M.D. on 07/19/2020 at 13:13 Approved by: Francisco Scott M.D. on 07/19/2020 at 13:17
== END ==
PROVIDERS: PCP Registered Nurse Diabetes Educator; Referring Provider Orthopaedic Surgery; Visit Provider Orthopaedic Surgery
DX: M25.552 Pain in left hip (principal); Z96.643 Presence of artificial hip joint, bilateral
CPT/HCPCS: 73502

== ENCOUNTER 2020-09-07 09:00 | Outpatient (RCR) | payer OTHER, MEDICAID, SELFPAY ==
--- NOTE | 2020-03-06 12:45 | PT.OIE ---
Current Diagnoses Pain in right hip (03/06/20) Pain in left hip (03/06/20) Stiffness of right hip, not elsewhere classified (03/06/20) Stiffness of left hip, not elsewhere classified (03/06/20) Other abnormalities of gait and mobility (03/06/20) Weakness (03/06/20) Presence of right artificial hip joint (03/06/20) Past Medical History (Last Reviewed 03/03/19 @ 02:50 by Pattie Kendall DO) Alcoholism (Acute) Anorexia (Acute) Visit Care Team Role Provider Type Roberto Carlos Sood MD Primary Care Provider Physician Specialty: Internal Medicine Address: [address] [place] [address], [facility] Email: [email or web address] Xander Martinez MD Attending Provider Non-Staff Referring Provider Specialty: Orthopedics Address: [address] [place] [address], [facility] Email: Physical Therapy Initial Evaluation PT-OP-A Visit Information Start: 03/06/20 12:11 Freq: Status: Active Protocol: Document 03/06/20 11:15 DCW (Rec: 03/06/20 12:43 DCW [id number]) Out-Patient Physical Therapy Visit Information Visit Information Visit Type Initial Evaluation Visit Start Time 11:15 Visit Stop Time 11:55 Total Visit Minutes 40 Visit Number 1 Number of [facility] SPECIALIST Visits 0 Evaluation Information Evaluation Date 03/06/20 PT-OP-B Current Condition Start: 03/06/20 12:11 Freq: Status: Active Protocol: Document 03/06/20 11:15 DCW (Rec: 03/06/20 12:43 DC [id number]) Current Condition History of Current Condition Onset Date 02/28/20 Current Complaints Hip pain and stiffness following R SHERIDAN History of Current Condition Pt is a 34 year old female presenting one weeks s/p R SHERIDAN secondary to a long-standing history of back and hip problems due to avascular necrosis. Pt reports her left hip is scheduled for a SHERIDAN in April of this year, but at this time her left leg is so weak and painful, she is afraid it will negatively impact the rehab of her right SHERIDAN. 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 Admits that she has lost most of the muscle mass in her legs from atrophy, due to the fact that she is unable to do much activity at all without severe pain. Pt notes that before her surgery, she was only able to walk ~1.5 blocks, and that was with severe pain. Pt notes that with activity, her hip is a 9/ 10 in pain level, and at rest, this decreases to a 6/10. Prior Treatments and Tests R SHERIDAN 02/28/20 Future Testing and Treatments Planned L SHERIDAN 05/09/20 Treatment Goals Patient/Caregiver Goals I want to be able to walk without pain. PT-OP-C Subjective Start: 03/06/20 12:11 Freq: Status: Active Protocol: Document 03/06/20 11:15 DCW (Rec: 03/06/20 12:43 DCW [id number]) OP-PT Subjective Patient Comments Patient Comments I think trying to get my right leg better right now is going to be really difficult, because I can't really use my left leg for support or stability. Patient Questionnaires Lower Extremity Functional Scale LEFS Score 7.5% LEFS Impairment 80 to 99% Impaired (Score 1-16 ) OP-PT Pain Assessment Pain Assessment Grid Paper Pain Assessment Grid Completed Yes: Multiple locations, see chart PT-OP-E Functional Tests Start: 03/06/20 12:11 Freq: Status: Active Protocol: Document 03/06/20 11:15 DCW (Rec: 03/06/20 12:43 DCW [id number]) Functional Tests 2 Minute Walk Test Distance 178' Device Used FWW Comments 1.43 ft/sec PT-OP-F Manual Assessment Start: 03/06/20 12:43 Freq: Status: Active Protocol: Document 03/06/20 11:15 DCW (Rec: 03/06/20 12:45 DCW [id number]) Manual Assessments Soft Tissue Assessment Soft Tissue Mobility Assessment Severe tone in left QL creating mechanical scoliosis PT-OP-J Posture/Palpation/Skin Start: 03/06/20 12:43 Freq: Status: Active Protocol: Document 03/06/20 11:15 DCW (Rec: 03/06/20 12:45 DCW [id number]) Posture Evaluation Position Standing Evaluation View Posterior L-Spine Posture Flexible Scoliosis on (L) Scapula Posture (L) Elevated Weight Distribution Weight Shifted Left PT-OP-K Range of Motion Start: 03/06/20 12:11 Freq: Status: Active Protocol: Document 03/06/20 11:15 DCW (Rec: 03/06/20 12:43 DCW [id number]) Hip Goniometric Range of Motion Hip Right Passive Testing Position Supine Straight Leg Raise 38 Abduction 23 Left Passive Testing Position Supine Straight Leg Raise 49 Abduction 30 PT-OP-M Strength Start: 03/06/20 12:11 Freq: Status: Active Protocol: Document 03/06/20 11:15 DCW (Rec: 03/06/20 12:43 DCW [id number]) Hip Strength Hip Manual Muscle Testing Right Flexion (L2) 2+ Poor+ Abduction 2 Poor Adduction 2 Poor Left Flexion (L2) 3- Fair- Abduction 2+ Poor+ Adduction 3- Fair- PT-OP-Q Treatments Start: 03/06/20 12:11 Freq: Status: Active Protocol: Document 03/06/20 11:15 DCW (Rec: 03/06/20 12:45 DCW [id number]) Self-Care/Home Management Treatment Education Patient Education Home Exercise Program Other Education Ankle pumps, Quad sets, Glute sets, Windshield wipers, Supine heel slides PT-OP-T Assessment and Plan Start: 03/06/20 12:11 Freq: Status: Active Protocol: Document 03/06/20 11:15 DCW (Rec: 03/06/20 12:43 GAW [id number]) Physical Therapy Assessment Rehab Potential Rehabilitation Potential Good Evaluation Complexity Number of Personal Factors/Comorbidities 3 or More Number of Body Systems Impaired 4 or More Clinical Presentation at Evaluation Unstable Impairments Impairments Activity Tolerance,Balance, Functional Activities, Functional Mobility,Gait,Pain, Posture,ROM,Soft Tissue Mobility,Strength,Tone Other Concerns Barriers to Rehabilitation Severity of condition, unable to use nonsurgical leg for stability or strength. Goals Five Impairment Severe spasm in left QL results in mechanical scoliosis Digital Tech Goal (LTG) Decreased muscle tone in left QL to moderate for improved posture. Four Impairment Limited hip ROM [facility] Goal (LTG) Pt to tolerate passive ROM of 70? flexion and 45? abduction bilaterally LTG Duration 05/06/20 Three Impairment Significant bilateral hip weakness Digital Tech Goal (LTG) Pt to demonstrate bilateral hip MMT of at least 3+/5 in all planes LTG Duration 05/06/20 Two Impairment Gait speed of 1.43 ft/sec during 2 MWT /c FWW Short Term Goal (STG) A gait speed of <1.77' can indicate an increased risk of further functional decline. Pt will demonstrate a gait speed >1.77 during a 2 minute walk test using a SPC STG Duration 04/05/20 Digital Tech Goal (LTG) Pt to complete a 6 MWT without an assistive device and a gait speed >1.77 ft/sec LTG Duration 05/06/20 One Impairment Pt does not have an appropriate home exercise program Short Term Goal (STG) Pt to be independent and compliant with an appropriate HEP STG Duration 04/05/20 Assessment Summary Assessment Pt presents with a highly complex evaluation one week s/ p L SHERIDAN. 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 Pt's rehab will bbe limited by her pain levels, her greatly affected non- surgical left leg, and overall muscle atrophy. Pt should benefit from skilled therapy focusing on hip strengthening, particularly hip abduction, posture training, STM, flexibility, and gait training . Per referral, pt's life-long hip precautions are no hip flexion >120?, and no adduction past midline above the knees. Additionally, pt will be undergoing a L SHERIDAN within the next few months, and care needs to be taken to ensure she will have remaining insurance benefit for PT following this upcoming surgery. Physical Therapy Plan Frequency and Duration Frequency of Treatment 2x/Week Duration of Treatment 2 months Plan of Care Start Date 03/06/20 Plan of Care End Date 05/05/20 Therapeutic Interventions Therapeutic Interventions Aquatic Therapy,Coordination Training,Gait Training,Home Exercise Program,Joint Mobilizations,Manual Therapy, Neuromuscular Re-education, Patient/Caregiver Education, Self-Care/Home Management, Therapeutic Exercises Modalities Cold Pack/Ice Massage,Electric Stimulation,Hot Packs, Ultrasound Next Visit Focus/Plan Next Note Type Treatment Note Next Visit Plan Gait training, strengthening, ROM, STM to QL
--- NOTE | 2020-03-06 12:46 | PT.OPPOC ---
Physical, Occupational & Speech Therapy At [facility] Current Diagnoses Pain in right hip (03/06/20) Pain in left hip (03/06/20) Stiffness of right hip, not elsewhere classified (03/06/20) Stiffness of left hip, not elsewhere classified (03/06/20) Other abnormalities of gait and mobility (03/06/20) Weakness (03/06/20) Presence of right artificial hip joint (03/06/20) Visit Care Team Role Provider Type Roberto Carlos Sood MD Primary Care Provider Physician Specialty: Internal Medicine Address: [address] [place] [address], [facility] Email: [email or web address] Xander Martinez MD Attending Provider Non-Staff Referring Provider Specialty: Orthopedics Address: [address] [place] [address], [facility] Email: Plan Of Care PT-OP-T Assessment and Plan Start: 03/06/20 12:11 Freq: Status: Active Protocol: Document 03/06/20 11:15 DCW (Rec: 03/06/20 12:43 DCW [id number]) Physical Therapy Assessment Rehab Potential Rehabilitation Potential Good Evaluation Complexity Number of Personal Factors/Comorbidities 3 or More Number of Body Systems Impaired 4 or More Clinical Presentation at Evaluation Unstable Impairments Impairments Activity Tolerance,Balance, Functional Activities, Functional Mobility,Gait,Pain, Posture,ROM,Soft Tissue Mobility,Strength,Tone Other Concerns Barriers to Rehabilitation Severity of condition, unable to use nonsurgical leg for stability or strength. 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 Four Impairment Limited hip ROM Polymerization Oven Tender Goal (LTG) Pt to tolerate passive ROM of 70? flexion and 45? abduction bilaterally LTG Duration 05/06/20 Three Impairment Significant bilateral hip weakness Senior Care Goal (LTG) Pt to demonstrate bilateral hip MMT of at least 3+/5 in all planes LTG Duration 05/06/20 Two Impairment Gait speed of 1.43 ft/sec during 2 MWT /c FWW Short Term Goal (STG) A gait speed of <1.77' can indicate an increased risk of further functional decline. Pt will demonstrate a gait speed >1.77 during a 2 minute walk test using a SPC STG Duration 04/05/20 Senior Care Goal (LTG) Pt to complete a 6 MWT without an assistive device and a gait speed >1.77 ft/sec LTG Duration 05/06/20 One Impairment Pt does not have an appropriate home exercise program Short Term Goal (STG) Pt to be independent and compliant with an appropriate HEP STG Duration 04/05/20 Assessment Summary Assessment Pt presents with a highly complex evaluation one week s/ p L SHERIDAN. 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 Pt's rehab will bbe limited by her pain levels, her greatly affected non- surgical left leg, and overall muscle atrophy. Pt should benefit from skilled therapy focusing on hip strengthening, particularly hip abduction, posture training, STM, flexibility, and gait training . Per referral, pt's life-long hip precautions are no hip flexion >120?, and no adduction past midline above the knees. Additionally, pt will be undergoing a L SHERIDAN within the next few months, and care needs to be taken to ensure she will have remaining insurance benefit for PT following this upcoming surgery. Physical Therapy Plan Frequency and Duration Frequency of Treatment 2x/Week Duration of Treatment 2 months Plan of Care Start Date 03/06/20 Plan of Care End Date 05/05/20 Therapeutic Interventions Therapeutic Interventions Aquatic Therapy,Coordination Training,Gait Training,Home Exercise Program,Joint Mobilizations,Manual Therapy, Neuromuscular Re-education, Patient/Caregiver Education, Self-Care/Home Management, Therapeutic Exercises Modalities Cold Pack/Ice Massage,Electric Stimulation,Hot Packs, Ultrasound Next Visit Focus/Plan Next Note Type Treatment Note Next Visit Plan Gait training, strengthening, ROM, STM to QL Plan of Care Dates Plan of Care Start Date 03/06/20 Plan of Care End Date 05/05/20 Electronically Signed by: Adam Gr, PT 03/06/20 2970 Please Sign and Return: I have reviewed this Plan of Care and certify that the skilled therapy services above are required to meet the patient?s needs. Physician Signature Date Printed Name and Credentials Clinical Instructor Signature Printed Name and Credentials
--- NOTE | 2020-03-09 09:03 | PT.OTN ---
Current Diagnoses Pain in right hip (03/09/20) Pain in left hip (03/09/20) Stiffness of right hip, not elsewhere classified (03/09/20) Stiffness of left hip, not elsewhere classified (03/09/20) Other abnormalities of gait and mobility (03/09/20) Weakness (03/09/20) Presence of right artificial hip joint (03/09/20) Physical Therapy Treatment Note PT-OP-A Visit Information Start: 03/06/20 12:11 Freq: Status: Active Protocol: Document 03/09/20 08:57 [facility] (Rec: 03/09/20 09:03 [facility] [id number]) Out-Patient Physical Therapy Visit Information Visit Information Visit Type Treatment Note Visit Note short session d/t insurance limits Visit Start Time 08:17 Visit Stop Time 08:51 Total Visit Minutes 34 Visit Number 2 Number of BUSINESS PERFORMANCE MANAGER Visits 0 PT-OP-B Current Condition Start: 03/06/20 12:11 Freq: Status: Active Protocol: Document 03/06/20 11:15 DCW (Rec: 03/06/20 12:43 DCW [id number]) Current Condition History of Current Condition Onset Date 02/28/20 Current Complaints Hip pain and stiffness following R SHERIDAN History of Current Condition Pt is a 34 year old female presenting one weeks s/p R SHERIDAN secondary to a long-standing history of back and hip problems due to avascular necrosis. Pt reports her left hip is scheduled for a SHERIDAN in April of this year, but at this time her left leg is so weak and painful, she is afraid it will negatively impact the rehab of her right SHERIDAN. 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 Admits that she has lost most of the muscle mass in her legs from atrophy, due to the fact that she is unable to do much activity at all without severe pain. Pt notes that before her surgery, she was only able to walk ~1.5 blocks, and that was with severe pain. Pt notes that with activity, her hip is a 9/ 10 in pain level, and at rest, this decreases to a 6/10. Prior Treatments and Tests R SHERIDAN 02/28/20 Future Testing and Treatments Planned L SHERIDAN 05/09/20 Treatment Goals Patient/Caregiver Goals I want to be able to walk without pain. PT-OP-C Subjective Start: 03/06/20 12:11 Freq: Status: Active Protocol: Document 03/09/20 08:57 [facility] (Rec: 03/09/20 09:03 [facility] [id number]) OP-PT Subjective Patient Comments Patient Comments Pt reports she is complinat with exercises. She is unsure about abd exercises d/t she thinks MD told her to avoid that motion as she had an ant lat approach surgery. PT-OP-E Functional Tests Start: 03/06/20 12:11 Freq: Status: Active Protocol: Document 03/06/20 11:15 DCW (Rec: 03/06/20 12:43 DCW [id number]) Functional Tests 2 Minute Walk Test Distance 178' Device Used FWW Comments 1.43 ft/sec PT-OP-F Manual Assessment Start: 03/06/20 12:43 Freq: Status: Active Protocol: Document 03/06/20 11:15 DCW (Rec: 03/06/20 12:45 DCW [id number]) Manual Assessments Soft Tissue Assessment Soft Tissue Mobility Assessment Severe tone in left QL creating mechanical scoliosis PT-OP-J Posture/Palpation/Skin Start: 03/06/20 12:43 Freq: Status: Active Protocol: Document 03/06/20 11:15 DCW (Rec: 03/06/20 12:45 DCW [id number]) Posture Evaluation Position Standing Evaluation View Posterior L-Spine Posture Flexible Scoliosis on (L) Scapula Posture (L) Elevated Weight Distribution Weight Shifted Left PT-OP-K Range of Motion Start: 03/06/20 12:11 Freq: Status: Active Protocol: Document 03/06/20 11:15 DCW (Rec: 03/06/20 12:43 DCW [id number]) Hip Goniometric Range of Motion Hip Right Passive Testing Position Supine Straight Leg Raise 38 Abduction 23 Left Passive Testing Position Supine Straight Leg Raise 49 Abduction 30 PT-OP-M Strength Start: 03/06/20 12:11 Freq: Status: Active Protocol: Document 03/06/20 11:15 DCW (Rec: 03/06/20 12:43 DCW [id number]) Hip Strength Hip Manual Muscle Testing Right Flexion (L2) 2+ Poor+ Abduction 2 Poor Adduction 2 Poor Left Flexion (L2) 3- Fair- Abduction 2+ Poor+ Adduction 3- Fair- PT-OP-Q Treatments Start: 03/06/20 12:11 Freq: Status: Active Protocol: Document 03/09/20 08:57 [facility] (Rec: 03/09/20 09:03 [facility] [id number]) Cardio Equipment Recumbent Elliptical ([employer]) Duration (Minutes) 5 Resistance 1 Therapeutic Exercises Supine Exercises 2 Supine Exercise Name pelvic tilts Reps/Minutes 30 1 Supine Exercise Name heel slides with core activiation Side right Reps/Minutes 10 Therapeutic Activity Therapeutic Activity posture Name standing Gait Training Gait Activity 1 Description w/FWW with focus on heel strike and smaller steps Comments educated on step to pattern for when painful and with small step step trhough, edu on shoulders down Manual Therapy Treatment Soft Tissue Mobilization QL Body Location r Mobilization Type Rolling Intensity/Depth Moderate Body Position Sidelying PT-OP-T Assessment and Plan Start: 03/06/20 12:11 Freq: Status: Active Protocol: Document 03/09/20 08:57 [facility] (Rec: 03/09/20 09:03 [facility] [id number]) Physical Therapy Assessment Goals Five Impairment 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 Four Impairment Limited hip ROM Central Supply Tech Goal (LTG) Pt to tolerate passive ROM of 70? flexion and 45? abduction bilaterally LTG Duration 05/06/20 Three Impairment Significant bilateral hip weakness Central Supply Tech Goal (LTG) Pt to demonstrate bilateral hip MMT of at least 3+/5 in all planes LTG Duration 05/06/20 Two Impairment Gait speed of 1.43 ft/sec during 2 MWT /c FWW Short Term Goal (STG) A gait speed of <1.77' can indicate an increased risk of further functional decline. Pt will demonstrate a gait speed >1.77 during a 2 minute walk test using a SPC STG Duration 04/05/20 Correction Goal (LTG) Pt to complete a 6 MWT without an assistive device and a gait speed >1.77 ft/sec LTG Duration 05/06/20 One Impairment Pt does not have an appropriate home exercise program Short Term Goal (STG) Pt to be independent and compliant with an appropriate HEP STG Duration 04/05/20 Assessment Summary Assessment Pt instructed to bring in MD's precaution info to next session as precaution she remembers seem to be a mix of post an ant lat precautions. Pt instructed to hold off on abd exercises until known. She was able to improve gait pattern and posture with cueing. WHen in good posture, pt feels pull into hip flexors .
--- NOTE | 2020-03-13 12:36 | PT.OTN ---
Current Diagnoses Pain in right hip (03/13/20) Pain in left hip (03/13/20) Stiffness of right hip, not elsewhere classified (03/13/20) Stiffness of left hip, not elsewhere classified (03/13/20) Other abnormalities of gait and mobility (03/13/20) Weakness (03/13/20) Presence of right artificial hip joint (03/13/20) Physical Therapy Treatment Note PT-OP-A Visit Information Start: 03/06/20 12:11 Freq: Status: Active Protocol: Document 03/13/20 12:03 DCW (Rec: 03/13/20 12:36 DCW [id number]) Out-Patient Physical Therapy Visit Information Visit Information Visit Type Treatment Note Visit Note short session d/t insurance limits Visit Start Time 12:03 Visit Stop Time 12:35 Total Visit Minutes 32 Visit Number 3 Number of BUSINESS TAXES SPECIALIST Visits 0 Evaluation Information Evaluation Date 03/06/20 PT-OP-B Current Condition Start: 03/06/20 12:11 Freq: Status: Active Protocol: Document 03/06/20 11:15 DCW (Rec: 03/06/20 12:43 DCW [id number]) Current Condition History of Current Condition Onset Date 02/28/20 Current Complaints Hip pain and stiffness following R SHERIDAN History of Current Condition Pt is a 34 year old female presenting one weeks s/p R SHERIDAN secondary to a long-standing history of back and hip problems due to avascular necrosis. Pt reports her left hip is scheduled for a SHERIDAN in April of this year, but at this time her left leg is so weak and painful, she is afraid it will negatively impact the rehab of her right SHERIDAN. 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 Admits that she has lost most of the muscle mass in her legs from atrophy, due to the fact that she is unable to do much activity at all without severe pain. Pt notes that before her surgery, she was only able to walk ~1.5 blocks, and that was with severe pain. Pt notes that with activity, her hip is a 9/ 10 in pain level, and at rest, this decreases to a 6/10. Prior Treatments and Tests R SHERIDAN 02/28/20 Future Testing and Treatments Planned L SHERIDAN 05/09/20 Treatment Goals Patient/Caregiver Goals I want to be able to walk without pain. PT-OP-C Subjective Start: 03/06/20 12:11 Freq: Status: Active Protocol: Document 03/13/20 12:03 DCW (Rec: 03/13/20 12:36 DCW [id number]) OP-PT Subjective Patient Comments Patient Comments Pt actually feels pretty good today, notes she has been doing her HEP, and feels a little stronger. Reports she had a follow-up with her surgeon, who help ease her mind about abduction exercises being safe to perform. PT-OP-E Functional Tests Start: 03/06/20 12:11 Freq: Status: Active Protocol: Document 03/06/20 11:15 DCW (Rec: 03/06/20 12:43 DCW [id number]) Functional Tests 2 Minute Walk Test Distance 178' Device Used FWW Comments 1.43 ft/sec PT-OP-F Manual Assessment Start: 03/06/20 12:43 Freq: Status: Active Protocol: Document 03/06/20 11:15 DCW (Rec: 03/06/20 12:45 DCW [id number]) Manual Assessments Soft Tissue Assessment Soft Tissue Mobility Assessment Severe tone in left QL creating mechanical scoliosis PT-OP-J Posture/Palpation/Skin Start: 03/06/20 12:43 Freq: Status: Active Protocol: Document 03/06/20 11:15 DCW (Rec: 03/06/20 12:45 DCW [id number]) Posture Evaluation Position Standing Evaluation View Posterior L-Spine Posture Flexible Scoliosis on (L) Scapula Posture (L) Elevated Weight Distribution Weight Shifted Left PT-OP-K Range of Motion Start: 03/06/20 12:11 Freq: Status: Active Protocol: Document 03/06/20 11:15 DCW (Rec: 03/06/20 12:43 DCW [id number]) Hip Goniometric Range of Motion Hip Right Passive Testing Position Supine Straight Leg Raise 38 Abduction 23 Left Passive Testing Position Supine Straight Leg Raise 49 Abduction 30 PT-OP-M Strength Start: 03/06/20 12:11 Freq: Status: Active Protocol: Document 03/06/20 11:15 DCW (Rec: 03/06/20 12:43 DCW [id number]) Hip Strength Hip Manual Muscle Testing Right Flexion (L2) 2+ Poor+ Abduction 2 Poor Adduction 2 Poor Left Flexion (L2) 3- Fair- Abduction 2+ Poor+ Adduction 3- Fair- PT-OP-Q Treatments Start: 03/06/20 12:11 Freq: Status: Active Protocol: Document 03/13/20 12:03 DCW (Rec: 03/13/20 12:36 DCW [id number]) Cardio Equipment Recumbent Elliptical ([employer] Duration (Minutes) 5 Resistance 1 Seat Position 8 Therapeutic Exercises Sidelying Exercises 1 Sidelying Exercise Name Clamshell Side right Standing Exercises 2 Standing Exercise Name Hip Extension Side bilateral Reps/Minutes 2x10 1 Standing Exercise Name Hip abduction Side bilateral Reps/Minutes 2x10 Manual Therapy Treatment Soft Tissue Mobilization QL Body Location B QL Mobilization Type Rolling Intensity/Depth Moderate Body Position Sidelying Other Other Manual Treatments PROM R hip flexion and abduction PT-OP-T Assessment and Plan Start: 03/06/20 12:11 Freq: Status: Active Protocol: Document 03/13/20 12:03 DCW (Rec: 03/13/20 12:36 DCW [id number]) Physical Therapy Assessment Impairments Impairments Activity Tolerance,Balance, Functional Activities, Functional Mobility,Gait,Pain, Posture,ROM,Soft Tissue Mobility,Strength,Tone Goals Five Impairment Severe spasm in left QL results in mechanical scoliosis Biofuels Plant Operations Engineer Goal (LTG) Decreased muscle tone in left QL to moderate for improved posture. Four Impairment Limited hip ROM Biofuels Plant Operations Engineer Goal (LTG) Pt to tolerate passive ROM of 70? flexion and 45? abduction bilaterally LTG Duration 05/06/20 Three Impairment Significant bilateral hip weakness Biofuels Plant Operations Engineer Goal (LTG) Pt to demonstrate bilateral hip MMT of at least 3+/5 in all planes LTG Duration 05/06/20 Two Impairment Gait speed of 1.43 ft/sec during 2 MWT /c FWW Short Term Goal (STG) A gait speed of <1.77' can indicate an increased risk of further functional decline. Pt will demonstrate a gait speed >1.77 during a 2 minute walk test using a SPC STG Duration 04/05/20 Biofuels Plant Operations Engineer Goal (LTG) Pt to complete a 6 MWT without an assistive device and a gait speed >1.77 ft/sec LTG Duration 05/06/20 One Impairment Pt does not have an appropriate home exercise program Short Term Goal (STG) Pt to be independent and compliant with an appropriate HEP STG Duration 04/05/20 Assessment Summary Assessment Pt having improved mobility and gait ability, having an easier time with heel-toe gait and advancing right leg. Left leg still limiting her ability to advance some therapeutic interventions. Physical Therapy Plan Frequency and Duration Frequency of Treatment 2x/Week Duration of Treatment 2 months Plan of Care Start Date 03/06/20 Plan of Care End Date 05/05/20 Therapeutic Interventions Therapeutic Interventions Aquatic Therapy,Coordination Training,Gait Training,Home Exercise Program,Joint Mobilizations,Manual Therapy, Neuromuscular Re-education, Patient/Caregiver Education, Self-Care/Home Management, Therapeutic Exercises Modalities Cold Pack/Ice Massage,Electric Stimulation,Hot Packs, Ultrasound Next Visit Focus/Plan Next Note Type Treatment Note Next Visit Plan Gait training, strengthening, ROM, STM to QL
--- NOTE | 2020-03-15 09:50 | PT.OTN ---
Current Diagnoses Pain in right hip (03/15/20) Pain in left hip (03/15/20) Stiffness of right hip, not elsewhere classified (03/15/20) Stiffness of left hip, not elsewhere classified (03/15/20) Other abnormalities of gait and mobility (03/15/20) Weakness (03/15/20) Presence of right artificial hip joint (03/15/20) Physical Therapy Treatment Note PT-OP-A Visit Information Start: 03/06/20 12:11 Freq: Status: Active Protocol: Document 03/15/20 09:10 [facility] (Rec: 03/15/20 09:50 [facility] [id number]) Out-Patient Physical Therapy Visit Information Visit Information Visit Type Treatment Note Visit Note short session d/t insurance limits Visit Start Time 09:04 Visit Stop Time 09:38 Total Visit Minutes 34 Visit Number 4 Number of OPENSTACK DEVELOPER Visits 0 PT-OP-B Current Condition Start: 03/06/20 12:11 Freq: Status: Active Protocol: Document 03/06/20 11:15 [facility] (Rec: 03/06/20 12:43 DCW [id number]) Current Condition History of Current Condition Onset Date 02/28/20 Current Complaints Hip pain and stiffness following R SHERIDAN History of Current Condition Pt is a 34 year old female presenting one weeks s/p R SHERIDAN secondary to a long-standing history of back and hip problems due to avascular necrosis. Pt reports her left hip is scheduled for a SHERIDAN in April of this year, but at this time her left leg is so weak and painful, she is afraid it will negatively impact the rehab of her right SHERIDAN. 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 Admits that she has lost most of the muscle mass in her legs from atrophy, due to the fact that she is unable to do much activity at all without severe pain. Pt notes that before her surgery, she was only able to walk ~1.5 blocks, and that was with severe pain. Pt notes that with activity, her hip is a 9/ 10 in pain level, and at rest, this decreases to a 6/10. Prior Treatments and Tests R SHERIDAN 02/28/20 Future Testing and Treatments Planned L SHERIDAN 05/09/20 Treatment Goals Patient/Caregiver Goals I want to be able to walk without pain. PT-OP-C Subjective Start: 03/06/20 12:11 Freq: Status: Active Protocol: Document 03/15/20 09:10 [facility] (Rec: 03/15/20 09:50 [facility] [id number]) OP-PT Subjective Patient Comments Patient Comments Pt reprots MD said no crossing legs and no flex past 120 deg , otherwise is fine.She is doing better. PT-OP-E Functional Tests Start: 03/06/20 12:11 Freq: Status: Active Protocol: Document 03/06/20 11:15 DCW (Rec: 03/06/20 12:43 DCW [id number]) Functional Tests 2 Minute Walk Test Distance 178' Device Used FWW Comments 1.43 ft/sec PT-OP-F Manual Assessment Start: 03/06/20 12:43 Freq: Status: Active Protocol: Document 03/06/20 11:15 [facility] (Rec: 03/06/20 12:45 DC[facility] [id number]) Manual Assessments Soft Tissue Assessment Soft Tissue Mobility Assessment Severe tone in left QL creating mechanical scoliosis PT-OP-J Posture/Palpation/Skin Start: 03/06/20 12:43 Freq: Status: Active Protocol: Document 03/06/20 11:15 DC[facility] (Rec: 03/06/20 12:45 DCW [id number]) Posture Evaluation Position Standing Evaluation View Posterior L-Spine Posture Flexible Scoliosis on (L) Scapula Posture (L) Elevated Weight Distribution Weight Shifted Left PT-OP-K Range of Motion Start: 03/06/20 12:11 Freq: Status: Active Protocol: Document 03/06/20 11:15 [facility] (Rec: 03/06/20 12:43 DCW [id number]) Hip Goniometric Range of Motion Hip Right Passive Testing Position Supine Straight Leg Raise 38 Abduction 23 Left Passive Testing Position Supine Straight Leg Raise 49 Abduction 30 PT-OP-M Strength Start: 03/06/20 12:11 Freq: Status: Active Protocol: Document 03/06/20 11:15 [facility] (Rec: 03/06/20 12:43 DCW [id number]) Hip Strength Hip Manual Muscle Testing Right Flexion (L2) 2+ Poor+ Abduction 2 Poor Adduction 2 Poor Left Flexion (L2) 3- Fair- Abduction 2+ Poor+ Adduction 3- Fair- PT-OP-Q Treatments Start: 03/06/20 12:11 Freq: Status: Active Protocol: Document 03/15/20 09:10 [facility] (Rec: 03/15/20 09:50 [facility] [id number]) Cardio Equipment Recumbent Elliptical (Biodex) Duration (Minutes) 5 Resistance 3 Seat Position 7 Therapeutic Exercises Standing Exercises posture Standing Exercise Name wall posture w/ walker Reps/Minutes [id number] minisquat Side bilateral Reps/Minutes 10 2 Standing Exercise Name Hip Extension Side bilateral Reps/Minutes 2x10 1 Standing Exercise Name Hip abduction Side bilateral Reps/Minutes 2x10 Gait Training Gait Activity 1 Description SPC attempted Comments pt encouraged smaller steps, attempted with cane on R and L side. Manual Therapy Treatment Soft Tissue Mobilization QL Body Location r>L Mobilization Type Rolling Intensity/Depth Moderate Body Position Sidelying PT-OP-T Assessment and Plan Start: 03/06/20 12:11 Freq: Status: Active Protocol: Document 03/15/20 09:10 [facility] (Rec: 03/15/20 09:50 [facility] [id number]) Physical Therapy Assessment Goals Five Impairment Severe spasm in left QL results in mechanical scoliosis Corn Popper Goal (LTG) Decreased muscle tone in left QL to moderate for improved posture. Four Impairment Limited hip ROM Assisted Goal (LTG) Pt to tolerate passive ROM of 70? flexion and 45? abduction bilaterally LTG Duration 05/06/20 Three Impairment Significant bilateral hip weakness Assisted Goal (LTG) Pt to demonstrate bilateral hip MMT of at least 3+/5 in all planes LTG Duration 05/06/20 Two Impairment Gait speed of 1.43 ft/sec during 2 MWT /c FWW Short Term Goal (STG) A gait speed of <1.77' can indicate an increased risk of further functional decline. Pt will demonstrate a gait speed >1.77 during a 2 minute walk test using a SPC STG Duration 04/05/20 Assisted Goal (LTG) Pt to complete a 6 MWT without an assistive device and a gait speed >1.77 ft/sec LTG Duration 05/06/20 One Impairment Pt does not have an appropriate home exercise program Short Term Goal (STG) Pt to be independent and compliant with an appropriate HEP STG Duration 04/05/20 Assessment Summary Assessment Pt is doing better with gait and all exercises. Cueing required for posture throughotu exercises. Attempted cane wlaking d/t pt saying she occasionally leaves her walker but at this time is limited by pain and ability to stabilize well with either hip. She takes too long of steps with cane at this time which also may contribute to pain. Physical Therapy Plan Frequency and Duration Frequency of Treatment 2x/Week Duration of Treatment 2 months Plan of Care Start Date 03/06/20 Plan of Care End Date 05/05/20 Next Visit Focus/Plan Next Note Type Treatment Note Next Visit Plan Gait training, strengthening, ROM, STM to QL
--- NOTE | 2020-03-21 11:12 | PT.OTN ---
Current Diagnoses Pain in right hip (03/21/20) Pain in left hip (03/21/20) Stiffness of right hip, not elsewhere classified (03/21/20) Stiffness of left hip, not elsewhere classified (03/21/20) Other abnormalities of gait and mobility (03/21/20) Weakness (03/21/20) Presence of right artificial hip joint (03/21/20) Physical Therapy Treatment Note PT-OP-A Visit Information Start: 03/06/20 12:11 Freq: Status: Active Protocol: Document 03/21/20 10:35 [facility] (Rec: 03/21/20 11:12 DC[facility] [id number]) Out-Patient Physical Therapy Visit Information Visit Information Visit Type Treatment Note Visit Note short session d/t insurance limits Visit Start Time 10:35 Visit Stop Time 11:10 Total Visit Minutes 35 Visit Number 5 Number of MANAGER ELECTRONIC Visits 0 Evaluation Information Evaluation Date 03/06/20 PT-OP-B Current Condition Start: 03/06/20 12:11 Freq: Status: Active Protocol: Document 03/06/20 11:15 [facility] (Rec: 03/06/20 12:43 DCW [id number]) Current Condition History of Current Condition Onset Date 02/28/20 Current Complaints Hip pain and stiffness following R SHERIDAN History of Current Condition Pt is a 34 year old female presenting one weeks s/p R SHERIDAN secondary to a long-standing history of back and hip problems due to avascular necrosis. Pt reports her left hip is scheduled for a SHERIDAN in April of this year, but at this time her left leg is so weak and painful, she is afraid it will negatively impact the rehab of her right SHERIDAN. 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 Admits that she has lost most of the muscle mass in her legs from atrophy, due to the fact that she is unable to do much activity at all without severe pain. Pt notes that before her surgery, she was only able to walk ~1.5 blocks, and that was with severe pain. Pt notes that with activity, her hip is a 9/ 10 in pain level, and at rest, this decreases to a 6/10. Prior Treatments and Tests R SHERIDAN 02/28/20 Future Testing and Treatments Planned L SHERIDAN 05/09/20 Treatment Goals Patient/Caregiver Goals I want to be able to walk without pain. PT-OP-C Subjective Start: 03/06/20 12:11 Freq: Status: Active Protocol: Document 03/21/20 10:35 [facility] (Rec: 03/21/20 11:12 DCW [id number]) OP-PT Subjective Patient Comments Patient Comments Pt reports she is a little sore today After over-doing it in Friday shopping, notes she was up and down a lot, PT-OP-E Functional Tests Start: 03/06/20 12:11 Freq: Status: Active Protocol: Document 03/06/20 11:15 [facility] (Rec: 03/06/20 12:43 DCW [id number]) Functional Tests 2 Minute Walk Test Distance 178' Device Used FWW Comments 1.43 ft/sec PT-OP-F Manual Assessment Start: 03/06/20 12:43 Freq: Status: Active Protocol: Document 03/06/20 11:15 [facility] (Rec: 03/06/20 12:45 DCW [id number]) Manual Assessments Soft Tissue Assessment Soft Tissue Mobility Assessment Severe tone in left QL creating mechanical scoliosis PT-OP-J Posture/Palpation/Skin Start: 03/06/20 12:43 Freq: Status: Active Protocol: Document 03/06/20 11:15 [facility] (Rec: 03/06/20 12:45 DCW [id number]) Posture Evaluation Position Standing Evaluation View Posterior L-Spine Posture Flexible Scoliosis on (L) Scapula Posture (L) Elevated Weight Distribution Weight Shifted Left PT-OP-K Range of Motion Start: 03/06/20 12:11 Freq: Status: Active Protocol: Document 03/06/20 11:15 [facility] (Rec: 03/06/20 12:43 DCW [id number]) Hip Goniometric Range of Motion Hip Right Passive Testing Position Supine Straight Leg Raise 38 Abduction 23 Left Passive Testing Position Supine Straight Leg Raise 49 Abduction 30 PT-OP-M Strength Start: 03/06/20 12:11 Freq: Status: Active Protocol: Document 03/06/20 11:15 [facility] (Rec: 03/06/20 12:43 DCW [id number]) Hip Strength Hip Manual Muscle Testing Right Flexion (L2) 2+ Poor+ Abduction 2 Poor Adduction 2 Poor Left Flexion (L2) 3- Fair- Abduction 2+ Poor+ Adduction 3- Fair- PT-OP-Q Treatments Start: 03/06/20 12:11 Freq: Status: Active Protocol: Document 03/21/20 10:35 [facility] (Rec: 03/21/20 11:12 DCW [id number]) Cardio Equipment Recumbent Elliptical (Biodex) Duration (Minutes) 5 Resistance 3 Seat Position 7 Gym Equipment Shuttle Recovery Unilateral Squats Details R Resistance 25# Bilateral Squats Resistance 50# Therapeutic Exercises Standing Exercises 2 Standing Exercise Name Hip Extension Side bilateral Reps/Minutes 2x10 1 Standing Exercise Name Hip abduction Side bilateral Reps/Minutes 2x10 Gait Training Gait Activity 1 Device Used SPC Comments Pt better with SPC in L hand Manual Therapy Treatment Soft Tissue Mobilization Piriformis Body Location R>L Mobilization Type Strumming,Sustained Pressure Intensity/Depth Moderate Body Position Prone QL Body Location r>L Mobilization Type Rolling Intensity/Depth Moderate Body Position Sidelying PT-OP-T Assessment and Plan Start: 03/06/20 12:11 Freq: Status: Active Protocol: Document 03/21/20 10:35 [facility] (Rec: 03/21/20 11:12 DCW [id number]) Physical Therapy Assessment Impairments Impairments Activity Tolerance,Balance, Functional Activities, Functional Mobility,Gait,Pain, Posture,ROM,Soft Tissue Mobility,Strength,Tone Goals Five Impairment Severe spasm in left QL results in mechanical scoliosis Mcc Goal (LTG) Decreased muscle tone in left QL to moderate for improved posture. LTG Duration 05/06/20 Four Impairment Limited hip ROM Mcc Goal (LTG) Pt to tolerate passive ROM of 70? flexion and 45? abduction bilaterally LTG Duration 05/06/20 Three Impairment Significant bilateral hip weakness Mcc Goal (LTG) Pt to demonstrate bilateral hip MMT of at least 3+/5 in all planes LTG Duration 05/06/20 Two Impairment Gait speed of 1.43 ft/sec during 2 MWT /c FWW Short Term Goal (STG) A gait speed of <1.77' can indicate an increased risk of further functional decline. Pt will demonstrate a gait speed >1.77 during a 2 minute walk test using a SPC STG Duration 04/05/20 Ncr Operator Goal (LTG) Pt to complete a 6 MWT without an assistive device and a gait speed >1.77 ft/sec LTG Duration 05/06/20 One Impairment Pt does not have an appropriate home exercise program Short Term Goal (STG) Pt to be independent and compliant with an appropriate HEP STG Duration 04/05/20 Assessment Summary Assessment Pt looking better with SPC use , still displays slight imbalance during gait, likely secondary to uneven pelvis due to collapse of acetabular joint. Physical Therapy Plan Frequency and Duration Frequency of Treatment 2x/Week Duration of Treatment 2 months Plan of Care Start Date 03/06/20 Plan of Care End Date 05/05/20 Therapeutic Interventions Therapeutic Interventions Aquatic Therapy,Coordination Training,Gait Training,Home Exercise Program,Joint Mobilizations,Manual Therapy, Neuromuscular Re-education, Patient/Caregiver Education, Self-Care/Home Management, Therapeutic Exercises Modalities Cold Pack/Ice Massage,Electric Stimulation,Hot Packs, Ultrasound Next Visit Focus/Plan Next Note Type Treatment Note Next Visit Plan Gait training, strengthening, ROM, STM to QL
--- NOTE | 2020-03-23 09:47 | PT.OTN ---
Current Diagnoses Pain in right hip (03/23/20) Pain in left hip (03/23/20) Stiffness of right hip, not elsewhere classified (03/23/20) Stiffness of left hip, not elsewhere classified (03/23/20) Other abnormalities of gait and mobility (03/23/20) Weakness (03/23/20) Presence of right artificial hip joint (03/23/20) Physical Therapy Treatment Note PT-OP-A Visit Information Start: 03/06/20 12:11 Freq: Status: Active Protocol: Document 03/23/20 09:01 [facility] (Rec: 03/23/20 09:47 [facility] [id number]) Out-Patient Physical Therapy Visit Information Visit Information Visit Type Treatment Note Visit Note short session d/t insurance limits Visit Start Time 09:05 Visit Stop Time 09:41 Total Visit Minutes 36 Visit Number 6 Number of ROVING OR YARN COLOR CHECKER Visits 0 PT-OP-B Current Condition Start: 03/06/20 12:11 Freq: Status: Active Protocol: Document 03/06/20 11:15 [facility] (Rec: 03/06/20 12:43 DC [id number]) Current Condition History of Current Condition Onset Date 02/28/20 Current Complaints Hip pain and stiffness following R SHERIDAN History of Current Condition Pt is a 34 year old female presenting one weeks s/p R SHERIDAN secondary to a long-standing history of back and hip problems due to avascular necrosis. Pt reports her left hip is scheduled for a SHERIDAN in April of this year, but at this time her left leg is so weak and painful, she is afraid it will negatively impact the rehab of her right SHERIDAN. 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 Admits that she has lost most of the muscle mass in her legs from atrophy, due to the fact that she is unable to do much activity at all without severe pain. Pt notes that before her surgery, she was only able to walk ~1.5 blocks, and that was with severe pain. Pt notes that with activity, her hip is a 9/ 10 in pain level, and at rest, this decreases to a 6/10. Prior Treatments and Tests R SHERIDAN 02/28/20 Future Testing and Treatments Planned L SHERIDAN 05/09/20 Treatment Goals Patient/Caregiver Goals I want to be able to walk without pain. PT-OP-C Subjective Start: 03/06/20 12:11 Freq: Status: Active Protocol: Document 03/23/20 09:01 [facility] (Rec: 03/23/20 09:47 [facility] [id number]) OP-PT Subjective Patient Comments Patient Comments Pt reports she is trying to use walker less. R glutes are sore. PT-OP-E Functional Tests Start: 03/06/20 12:11 Freq: Status: Active Protocol: Document 03/06/20 11:15 [facility] (Rec: 03/06/20 12:43 DCW [id number]) Functional Tests 2 Minute Walk Test Distance 178' Device Used FWW Comments 1.43 ft/sec PT-OP-F Manual Assessment Start: 03/06/20 12:43 Freq: Status: Active Protocol: Document 03/06/20 11:15 [facility] (Rec: 03/06/20 12:45 DCW [id number]) Manual Assessments Soft Tissue Assessment Soft Tissue Mobility Assessment Severe tone in left QL creating mechanical scoliosis PT-OP-J Posture/Palpation/Skin Start: 03/06/20 12:43 Freq: Status: Active Protocol: Document 03/06/20 11:15 [facility] (Rec: 03/06/20 12:45 DCW [id number]) Posture Evaluation Position Standing Evaluation View Posterior L-Spine Posture Flexible Scoliosis on (L) Scapula Posture (L) Elevated Weight Distribution Weight Shifted Left PT-OP-K Range of Motion Start: 03/06/20 12:11 Freq: Status: Active Protocol: Document 03/06/20 11:15 [facility] (Rec: 03/06/20 12:43 DCW [id number]) Hip Goniometric Range of Motion Hip Right Passive Testing Position Supine Straight Leg Raise 38 Abduction 23 Left Passive Testing Position Supine Straight Leg Raise 49 Abduction 30 PT-OP-M Strength Start: 03/06/20 12:11 Freq: Status: Active Protocol: Document 03/06/20 11:15 [facility] (Rec: 03/06/20 12:43 DCW [id number]) Hip Strength Hip Manual Muscle Testing Right Flexion (L2) 2+ Poor+ Abduction 2 Poor Adduction 2 Poor Left Flexion (L2) 3- Fair- Abduction 2+ Poor+ Adduction 3- Fair- PT-OP-Q Treatments Start: 03/06/20 12:11 Freq: Status: Active Protocol: Document 03/23/20 09:01 [facility] (Rec: 03/23/20 09:47 [facility] [id number]) Cardio Equipment Recumbent Elliptical (Biodex) Duration (Minutes) 5 Resistance 4 Seat Position 7 Gym Equipment Shuttle Recovery Unilateral Squats Details R Resistance 25# Reps/Time 30 Bilateral Squats Resistance 50# Reps/Time 30 Shuttle Balance 1 Details red clips Comments fwd & side: WBOS & NBOS Therapeutic Exercises Standing Exercises step up Standing Exercise Name 4 in Side right Equipment Used rail for balance Reps/Minutes x15 Manual Therapy Treatment Soft Tissue Mobilization Piriformis Body Location R>L Mobilization Type Strumming,Sustained Pressure Intensity/Depth Moderate Body Position Prone QL Body Location r>L Mobilization Type Rolling Intensity/Depth Moderate Body Position Prone PT-OP-T Assessment and Plan Start: 03/06/20 12:11 Freq: Status: Active Protocol: Document 03/23/20 09:01 [facility] (Rec: 03/23/20 09:47 [facility] [id number]) Physical Therapy Assessment Goals Five Impairment Severe spasm in left QL results in mechanical scoliosis Warehouseman Goal (LTG) Decreased muscle tone in left QL to moderate for improved posture. LTG Duration 05/06/20 Four Impairment Limited hip ROM Warehouseman Goal (LTG) Pt to tolerate passive ROM of 70? flexion and 45? abduction bilaterally LTG Duration 05/06/20 Three Impairment Significant bilateral hip weakness Assisted Goal (LTG) Pt to demonstrate bilateral hip MMT of at least 3+/5 in all planes LTG Duration 05/06/20 Two Impairment Gait speed of 1.43 ft/sec during 2 MWT /c FWW Short Term Goal (STG) A gait speed of <1.77' can indicate an increased risk of further functional decline. Pt will demonstrate a gait speed >1.77 during a 2 minute walk test using a SPC STG Duration 04/05/20 Warehouseman Goal (LTG) Pt to complete a 6 MWT without an assistive device and a gait speed >1.77 ft/sec LTG Duration 05/06/20 One Impairment Pt does not have an appropriate home exercise program Short Term Goal (STG) Pt to be independent and compliant with an appropriate HEP STG Duration 04/05/20 Assessment Summary Assessment Pt is using walker even less and just requires cues for relaxing shoulders. Pt did well with balance tasks. She was able to do 4 in step up with RLE without significant pain. Physical Therapy Plan Frequency and Duration Frequency of Treatment 2x/Week Duration of Treatment 2 months Plan of Care Start Date 03/06/20 Plan of Care End Date 05/05/20 Next Visit Focus/Plan Next Note Type Treatment Note Next Visit Plan Gait training, strengthening, ROM, STM to QL
--- NOTE | 2020-03-27 12:40 | PT.OTN ---
Current Diagnoses Pain in right hip (03/27/20) Pain in left hip (03/27/20) Stiffness of right hip, not elsewhere classified (03/27/20) Stiffness of left hip, not elsewhere classified (03/27/20) Other abnormalities of gait and mobility (03/27/20) Weakness (03/27/20) Presence of right artificial hip joint (03/27/20) Physical Therapy Treatment Note PT-OP-A Visit Information Start: 03/06/20 12:11 Freq: Status: Active Protocol: Document 03/27/20 12:03 DCW (Rec: 03/27/20 12:39 DCW [id number]) Out-Patient Physical Therapy Visit Information Visit Information Visit Type Treatment Note Visit Note short session d/t insurance limits Visit Start Time 12:03 Visit Stop Time 12:36 Total Visit Minutes 33 Visit Number 7 Number of ABRASIVE SAWYER Visits 0 Evaluation Information Evaluation Date 03/06/20 PT-OP-B Current Condition Start: 03/06/20 12:11 Freq: Status: Active Protocol: Document 03/06/20 11:15 DCW (Rec: 03/06/20 12:43 DCW [id number]) Current Condition History of Current Condition Onset Date 02/28/20 Current Complaints Hip pain and stiffness following R SHERIDAN History of Current Condition Pt is a 34 year old female presenting one weeks s/p R SHERIDAN secondary to a long-standing history of back and hip problems due to avascular necrosis. Pt reports her left hip is scheduled for a SHERIDAN in April of this year, but at this time her left leg is so weak and painful, she is afraid it will negatively impact the rehab of her right SHERIDAN. 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 Admits that she has lost most of the muscle mass in her legs from atrophy, due to the fact that she is unable to do much activity at all without severe pain. Pt notes that before her surgery, she was only able to walk ~1.5 blocks, and that was with severe pain. Pt notes that with activity, her hip is a 9/ 10 in pain level, and at rest, this decreases to a 6/10. Prior Treatments and Tests R SHERIDAN 02/28/20 Future Testing and Treatments Planned L SHERIDAN 05/09/20 Treatment Goals Patient/Caregiver Goals I want to be able to walk without pain. PT-OP-C Subjective Start: 03/06/20 12:11 Freq: Status: Active Protocol: Document 03/27/20 12:03 DCW (Rec: 03/27/20 12:39 DCW [id number]) OP-PT Subjective Patient Comments Patient Comments Pt reports she did something to my foot, notes pain along her heel when she is walking, but I'm just going to work through it and try to let it heal, it doesn't seem to be anything serious. PT-OP-E Functional Tests Start: 03/06/20 12:11 Freq: Status: Active Protocol: Document 03/06/20 11:15 DCW (Rec: 03/06/20 12:43 DCW [id number]) Functional Tests 2 Minute Walk Test Distance 178' Device Used FWW Comments 1.43 ft/sec PT-OP-F Manual Assessment Start: 03/06/20 12:43 Freq: Status: Active Protocol: Document 03/06/20 11:15 DCW (Rec: 03/06/20 12:45 DCW [id number]) Manual Assessments Soft Tissue Assessment Soft Tissue Mobility Assessment Severe tone in left QL creating mechanical scoliosis PT-OP-J Posture/Palpation/Skin Start: 03/06/20 12:43 Freq: Status: Active Protocol: Document 03/06/20 11:15 DCW (Rec: 03/06/20 12:45 DCW [id number]) Posture Evaluation Position Standing Evaluation View Posterior L-Spine Posture Flexible Scoliosis on (L) Scapula Posture (L) Elevated Weight Distribution Weight Shifted Left PT-OP-K Range of Motion Start: 03/06/20 12:11 Freq: Status: Active Protocol: Document 03/06/20 11:15 DCW (Rec: 03/06/20 12:43 DCW [id number]) Hip Goniometric Range of Motion Hip Right Passive Testing Position Supine Straight Leg Raise 38 Abduction 23 Left Passive Testing Position Supine Straight Leg Raise 49 Abduction 30 PT-OP-M Strength Start: 03/06/20 12:11 Freq: Status: Active Protocol: Document 03/06/20 11:15 DCW (Rec: 03/06/20 12:43 DCW [id number]) Hip Strength Hip Manual Muscle Testing Right Flexion (L2) 2+ Poor+ Abduction 2 Poor Adduction 2 Poor Left Flexion (L2) 3- Fair- Abduction 2+ Poor+ Adduction 3- Fair- PT-OP-Q Treatments Start: 03/06/20 12:11 Freq: Status: Active Protocol: Document 03/27/20 12:03 DCW (Rec: 03/27/20 12:39 DCW [id number]) Cardio Equipment Recumbent Elliptical (Biodex) Duration (Minutes) 5 Resistance 4 Seat Position 7 Gym Equipment Shuttle Recovery Unilateral Squats Details R Resistance 25# Reps/Time 30 Bilateral Squats Resistance 50# Reps/Time 30 Shuttle Balance 1 Details red clips Comments WBOS (EO/EC), Staggered Stance , Lateral Weight Shift Therapeutic Exercises Standing Exercises 2 Standing Exercise Name Hip Extension Side bilateral Reps/Minutes 2x10 1 Standing Exercise Name Hip abduction Side bilateral Reps/Minutes 2x10 Gait Training Gait Activity 2 Description Stairs Device Used B railing Level of Assistance SBA Comments Step-to/Step-through ascend/ descend PT-OP-T Assessment and Plan Start: 03/06/20 12:11 Freq: Status: Active Protocol: Document 03/27/20 12:03 DCW (Rec: 03/27/20 12:39 DCW [id number]) Physical Therapy Assessment Impairments Impairments Activity Tolerance,Balance, Functional Activities, Functional Mobility,Gait,Pain, Posture,ROM,Soft Tissue Mobility,Strength,Tone Goals Five Impairment Severe spasm in left QL results in mechanical scoliosis Honing Machine Set Up Operator Tool Goal (LTG) Decreased muscle tone in left QL to moderate for improved posture. LTG Duration 05/06/20 Four Impairment Limited hip ROM Honing Machine Set Up Operator Tool Goal (LTG) Pt to tolerate passive ROM of 70? flexion and 45? abduction bilaterally LTG Duration 05/06/20 Three Impairment Significant bilateral hip weakness [facility] Goal (LTG) Pt to demonstrate bilateral hip MMT of at least 3+/5 in all planes LTG Duration 05/06/20 Two Impairment Gait speed of 1.43 ft/sec during 2 MWT /c FWW Short Term Goal (STG) A gait speed of <1.77' can indicate an increased risk of further functional decline. Pt will demonstrate a gait speed >1.77 during a 2 minute walk test using a SPC STG Duration 04/05/20 Honing Machine Set Up Operator Tool Goal (LTG) Pt to complete a 6 MWT without an assistive device and a gait speed >1.77 ft/sec LTG Duration 05/06/20 One Impairment Pt does not have an appropriate home exercise program Short Term Goal (STG) Pt to be independent and compliant with an appropriate HEP STG Duration 04/05/20 Assessment Summary Assessment Pt did well with stairs, both with step-to and step-through, although still heavily relies on UEs for support. Attempts on both 4 and 6 stairs, slight increase in discomfort with 6 stairs, mainly in right quad. Physical Therapy Plan Frequency and Duration Frequency of Treatment 2x/Week Duration of Treatment 2 months Plan of Care Start Date 03/06/20 Plan of Care End Date 05/05/20 Therapeutic Interventions Therapeutic Interventions Aquatic Therapy,Coordination Training,Gait Training,Home Exercise Program,Joint Mobilizations,Manual Therapy, Neuromuscular Re-education, Patient/Caregiver Education, Self-Care/Home Management, Therapeutic Exercises Modalities Cold Pack/Ice Massage,Electric Stimulation,Hot Packs, Ultrasound Next Visit Focus/Plan Next Note Type Treatment Note Next Visit Plan Gait training, strengthening, ROM, STM to QL
--- NOTE | 2020-04-03 14:27 | PT.OTN ---
Current Diagnoses Pain in right hip (04/03/20) Pain in left hip (04/03/20) Stiffness of right hip, not elsewhere classified (04/03/20) Stiffness of left hip, not elsewhere classified (04/03/20) Other abnormalities of gait and mobility (04/03/20) Weakness (04/03/20) Presence of right artificial hip joint (04/03/20) Physical Therapy Treatment Note PT-OP-A Visit Information Start: 03/06/20 12:11 Freq: Status: Active Protocol: Document 04/03/20 13:45 DCW (Rec: 04/03/20 14:26 DCW [id number]) Out-Patient Physical Therapy Visit Information Visit Information Visit Type Treatment Note Visit Note short session d/t insurance limits Visit Start Time 13:45 Visit Stop Time 14:17 Total Visit Minutes 32 Visit Number 8 Number of SENIOR WINDOWS ENGINEER Visits 0 Evaluation Information Evaluation Date 03/06/20 PT-OP-B Current Condition Start: 03/06/20 12:11 Freq: Status: Active Protocol: Document 03/06/20 11:15 DCW (Rec: 03/06/20 12:43 DCW [id number]) Current Condition History of Current Condition Onset Date 02/28/20 Current Complaints Hip pain and stiffness following R SHERIDAN History of Current Condition Pt is a 34 year old female presenting one weeks s/p R SHERIDAN secondary to a long-standing history of back and hip problems due to avascular necrosis. Pt reports her left hip is scheduled for a SHERIDAN in April of this year, but at this time her left leg is so weak and painful, she is afraid it will negatively impact the rehab of her right SHERIDAN. 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 Admits that she has lost most of the muscle mass in her legs from atrophy, due to the fact that she is unable to do much activity at all without severe pain. Pt notes that before her surgery, she was only able to walk ~1.5 blocks, and that was with severe pain. Pt notes that with activity, her hip is a 9/ 10 in pain level, and at rest, this decreases to a 6/10. Prior Treatments and Tests R SHERIDAN 02/28/20 Future Testing and Treatments Planned L SHERIDAN 05/09/20 Treatment Goals Patient/Caregiver Goals I want to be able to walk without pain. PT-OP-C Subjective Start: 03/06/20 12:11 Freq: Status: Active Protocol: Document 04/03/20 13:45 DCW (Rec: 04/03/20 14:26 DCW [id number]) OP-PT Subjective Patient Comments Patient Comments Pt has continued to have right foot pain, actually went to the ER earlier today, where they ruled out a fracture and DVT. Notes she still has a lot of swelling and tenderness, they believe it is likely tendonitis. PT-OP-E Functional Tests Start: 03/06/20 12:11 Freq: Status: Active Protocol: Document 03/06/20 11:15 DCW (Rec: 03/06/20 12:43 DCW [id number]) Functional Tests 2 Minute Walk Test Distance 178' Device Used FWW Comments 1.43 ft/sec PT-OP-F Manual Assessment Start: 03/06/20 12:43 Freq: Status: Active Protocol: Document 03/06/20 11:15 DCW (Rec: 03/06/20 12:45 DCW [id number]) Manual Assessments Soft Tissue Assessment Soft Tissue Mobility Assessment Severe tone in left QL creating mechanical scoliosis PT-OP-J Posture/Palpation/Skin Start: 03/06/20 12:43 Freq: Status: Active Protocol: Document 03/06/20 11:15 DCW (Rec: 03/06/20 12:45 DCW [id number]) Posture Evaluation Position Standing Evaluation View Posterior L-Spine Posture Flexible Scoliosis on (L) Scapula Posture (L) Elevated Weight Distribution Weight Shifted Left PT-OP-K Range of Motion Start: 03/06/20 12:11 Freq: Status: Active Protocol: Document 03/06/20 11:15 DCW (Rec: 03/06/20 12:43 DCW [id number]) Hip Goniometric Range of Motion Hip Right Passive Testing Position Supine Straight Leg Raise 38 Abduction 23 Left Passive Testing Position Supine Straight Leg Raise 49 Abduction 30 PT-OP-M Strength Start: 03/06/20 12:11 Freq: Status: Active Protocol: Document 03/06/20 11:15 DCW (Rec: 03/06/20 12:43 DCW [id number]) Hip Strength Hip Manual Muscle Testing Right Flexion (L2) 2+ Poor+ Abduction 2 Poor Adduction 2 Poor Left Flexion (L2) 3- Fair- Abduction 2+ Poor+ Adduction 3- Fair- PT-OP-Q Treatments Start: 03/06/20 12:11 Freq: Status: Active Protocol: Document 04/03/20 13:45 DCW (Rec: 04/03/20 14:26 DCW [id number]) Cardio Equipment Recumbent Elliptical (Biodex) Duration (Minutes) 5 Resistance 4 Seat Position 7 Gym Equipment Shuttle Recovery Unilateral Squats Details R Resistance 25# Reps/Time 30 Bilateral Squats Resistance 62# Reps/Time 30 Shuttle Balance 1 Details red clips Comments WBOS, Lateral Weight Shift Therapeutic Exercises Standing Exercises step up Standing Exercise Name 6 in Side right Equipment Used rail for balance Reps/Minutes x15 2 Standing Exercise Name Hip Extension Side bilateral Reps/Minutes 2x10 Manual Therapy Treatment Soft Tissue Mobilization Piriformis Body Location R>L Mobilization Type Strumming,Sustained Pressure Intensity/Depth Moderate Body Position Prone QL Body Location r>L Mobilization Type Rolling Intensity/Depth Moderate Body Position Prone PT-OP-T Assessment and Plan Start: 03/06/20 12:11 Freq: Status: Active Protocol: Document 04/03/20 13:45 DCW (Rec: 04/03/20 14:26 DCW [id number]) Physical Therapy Assessment Impairments Impairments Activity Tolerance,Balance, Functional Activities, Functional Mobility,Gait,Pain, Posture,ROM,Soft Tissue Mobility,Strength,Tone Goals Five Impairment Severe spasm in left QL results in mechanical scoliosis Patrol Deputy Sheriff Goal (LTG) Decreased muscle tone in left QL to moderate for improved posture. LTG Duration 05/06/20 Four Impairment Limited hip ROM Patrol Deputy Sheriff Goal (LTG) Pt to tolerate passive ROM of 70? flexion and 45? abduction bilaterally LTG Duration 05/06/20 Three Impairment Significant bilateral hip weakness Shelter Goal (LTG) Pt to demonstrate bilateral hip MMT of at least 3+/5 in all planes LTG Duration 05/06/20 Two Impairment Gait speed of 1.43 ft/sec during 2 MWT /c FWW Short Term Goal (STG) A gait speed of <1.77' can indicate an increased risk of further functional decline. Pt will demonstrate a gait speed >1.77 during a 2 minute walk test using a SPC STG Duration 04/05/20 Patrol Deputy Sheriff Goal (LTG) Pt to complete a 6 MWT without an assistive device and a gait speed >1.77 ft/sec LTG Duration 05/06/20 One Impairment Pt does not have an appropriate home exercise program Short Term Goal (STG) Pt to be independent and compliant with an appropriate HEP STG Duration 04/05/20 Assessment Summary Assessment Pt tolerated treatment well today, decided to hold further therapy appointments until after her next SHERIDAN in April in order to save remaining authorized visits. Physical Therapy Plan Frequency and Duration Frequency of Treatment 2x/Week Duration of Treatment 2 months Plan of Care Start Date 03/06/20 Plan of Care End Date 05/05/20 Therapeutic Interventions Therapeutic Interventions Aquatic Therapy,Coordination Training,Gait Training,Home Exercise Program,Joint Mobilizations,Manual Therapy, Neuromuscular Re-education, Patient/Caregiver Education, Self-Care/Home Management, Therapeutic Exercises Modalities Cold Pack/Ice Massage,Electric Stimulation,Hot Packs, Ultrasound Hold Physical Therapy Reason For Hold Hold until after upcoming L SHERIDAN Next Visit Focus/Plan Next Note Type Treatment Note Next Visit Plan Gait training, strengthening, ROM, STM to QL
--- NOTE | 2020-05-03 10:03 | PT-OP ANOTE ---
Naina arrived today for re-evaluation. She reported she is scheduled for L SHERIDAN next week. Consulted with evaluating PT, whose last note stated to hold visits until after L SHERIDAN. Discussed limited insurance benefit with Naina who agreed to wait until after surgery for further visits. Next scheduled visit is 05/16/20.
--- NOTE | 2020-06-02 12:03 | PT.OTRE ---
Current Diagnoses Pain in right hip (06/02/20) Pain in left hip (06/02/20) Stiffness of right hip, not elsewhere classified (06/02/20) Stiffness of left hip, not elsewhere classified (06/02/20) Other abnormalities of gait and mobility (06/02/20) Weakness (06/02/20) Presence of right artificial hip joint (06/02/20) Past Medical History (Last Reviewed 04/05/20 @ 07:50 by FELIPE Lemos) Alcoholism (Acute) Ankle pain, right (Acute) Anorexia (Acute) Visit Care Team Role Provider Type Roberto Carlos Sood MD Primary Care Provider Physician Specialty: Internal Medicine Address: [address] [place] [address], [facility] Email: [email or web address] Xander Martniez MD Attending Provider Non-Staff Referring Provider Specialty: Orthopedics Address: [address] [place] [address], [facility] Email: Physical Therapy Re-Evaluation PT-OP-A Visit Information Start: 03/06/20 12:11 Freq: Status: Active Protocol: Document 06/02/20 11:18 DCW (Rec: 06/02/20 12:02 DCW [id number]) Out-Patient Physical Therapy Visit Information Visit Information Visit Type Re-Evaluation Visit Start Time 11:18 Visit Stop Time 11:50 Total Visit Minutes 32 Visit Number 9 Number of DIFFUSION FURNACE OPERATOR Visits 0 Evaluation Information Evaluation Date 03/06/20 PT-OP-B Current Condition Start: 03/06/20 12:11 Freq: Status: Active Protocol: Document 06/02/20 11:18 DCW (Rec: 06/02/20 11:38 DCW [id number]) Current Condition History of Current Condition Onset Date 02/28/20 Current Complaints Hip pain and stiffness following L SHERIDAN History of Current Condition Pt is a 34 year old female presenting one weeks s/p R SHERIDAN secondary to a long-standing history of back and hip problems due to avascular necrosis. Pt reports her left hip is scheduled for a SHERIDAN in April of this year, but at this time her left leg is so weak and painful, she is afraid it will negatively impact the rehab of her right SHERIDAN. 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 Admits that she has lost most of the muscle mass in her legs from atrophy, due to the fact that she is unable to do much activity at all without severe pain. Pt notes that before her surgery, she was only able to walk ~1.5 blocks, and that was with severe pain. Pt notes that with activity, her hip is a 9/ 10 in pain level, and at rest, this decreases to a 6/10. ADDENDUM 06/02/2020: Pt returns to therapy today following a Left SHERIDAN on 05/09/20. Pt reports she was supposed to start therapy two weeks ago, but was asked to hold off due to a greater trochanter fracture that happened at some point either during or after surgery. Pt walking without a walker for short distances, but uses it for shopping or longer distances. Pt reports she is very sore and fatigued on days following trips to the [employer]. Notes that it is slowly getting better, but sleep has been horrendous. Pt also notes that the right side feels good, I don't have any complaints about it, and my back is doing much better, I feel like my alignment is much better now. Prior Treatments and Tests R SHERIDAN 02/28/20 L SHERIDAN 05/09/20 Treatment Goals Patient/Caregiver Goals I want to be able to walk without pain. PT-OP-C Subjective Start: 03/06/20 12:11 Freq: Status: Active Protocol: Document 06/02/20 11:18 DCW (Rec: 06/02/20 12:02 DCW [id number]) OP-PT Subjective Patient Comments Patient Comments Pt feels overall like she is walking better, and is having less back pain due to hip/ pelvic imbalance. Pt is frustrated that the GT fracture seems to be slowing recovery. Patient Reported Progress Improving PT-OP-E Functional Tests Start: 03/06/20 12:11 Freq: Status: Active Protocol: Document 06/02/20 11:18 DCW (Rec: 06/02/20 11:38 DCW [id number]) Functional Tests 2 Minute Walk Test Distance 357' Device Used None Comments 2.96 ft/sec PT-OP-F Manual Assessment Start: 03/06/20 12:43 Freq: Status: Active Protocol: Document 06/02/20 11:18 DCW (Rec: 06/02/20 11:38 DCW [id number]) Manual Assessments Soft Tissue Assessment Soft Tissue Mobility Assessment Significantly reduced tone in left QL vs initial evaluation, minimal mechanical scoliosis. PT-OP-G Mobility & Gait Start: 06/02/20 11:38 Freq: Status: Active Protocol: Document 06/02/20 11:18 DCW (Rec: 06/02/20 11:39 DCW [id number]) OP Gait Assessment Gait Gait Assistance Required: Independent Distance (Feet) 357 Able to Maintain Weight Bearing Status Yes During Gait Assistive Devices Assistive Device None Gait Deviations General Gait Pattern Ataxic,Lateral Trunk Lean Factors Limiting Gait Function Factors Limiting Gait Function Abnormal Tonal Influences, Decreased Activity Tolerance, Decreased Strength Comments Gait Comments Trendelenberg gait due to left abductor weakness. PT-OP-J Posture/Palpation/Skin Start: 03/06/20 12:43 Freq: Status: Active Protocol: Document 06/02/20 11:18 DCW (Rec: 06/02/20 11:38 DCW [id number]) Posture Evaluation Position Standing Scapula Posture (L) Elevated Weight Distribution Weight Shifted Right,Decreased Wt.Bear on (L) PT-OP-K Range of Motion Start: 03/06/20 12:11 Freq: Status: Active Protocol: Document 06/02/20 11:18 DCW (Rec: 06/02/20 11:38 DCW [id number]) Hip Goniometric Range of Motion Hip Measured in Degrees Right Passive Testing Position Supine Straight Leg Raise 47 Abduction 42 Left Passive Testing Position Supine Straight Leg Raise 52 Abduction 30 PT-OP-M Strength Start: 03/06/20 12:11 Freq: Status: Active Protocol: Document 06/02/20 11:18 DCW (Rec: 06/02/20 11:38 DCW [id number]) Hip Strength Hip Manual Muscle Testing Right Flexion (L2) 4 Good Abduction 3 Fair Adduction 3+ Fair+ Left Flexion (L2) 3 Fair Abduction 2 Poor Adduction 2+ Poor+ PT-OP-Q Treatments Start: 03/06/20 12:11 Freq: Status: Active Protocol: Document 04/03/20 13:45 DCW (Rec: 04/03/20 14:26 DCW [id number]) Cardio Equipment Recumbent Elliptical (Biodex) Duration (Minutes) 5 Resistance 4 Seat Position 7 Gym Equipment Shuttle Recovery Unilateral Squats Details R Resistance 25# Reps/Time 30 Bilateral Squats Resistance 62# Reps/Time 30 Shuttle Balance 1 Details red clips Comments WBOS, Lateral Weight Shift Therapeutic Exercises Standing Exercises step up Standing Exercise Name 6 in Side right Equipment Used rail for balance Reps/Minutes x15 2 Standing Exercise Name Hip Extension Side bilateral Reps/Minutes 2x10 Manual Therapy Treatment Soft Tissue Mobilization Piriformis Body Location R>L Mobilization Type Strumming,Sustained Pressure Intensity/Depth Moderate Body Position Prone QL Body Location r>L Mobilization Type Rolling Intensity/Depth Moderate Body Position Prone PT-OP-T Assessment and Plan Start: 03/06/20 12:11 Freq: Status: Active Protocol: Document 06/02/20 11:18 DCW (Rec: 06/02/20 12:02 DCW [id number]) Physical Therapy Assessment Impairments Impairments Activity Tolerance,Balance, Functional Activities, Functional Mobility,Gait,Pain, Posture,ROM,Soft Tissue Mobility,Strength,Tone Goals Six Impairment Pt amb /c Trendelenberg gait due to abd weakness Short Term Goal (STG) Pt to demonstrate gait with no trendelenberg pattern 70% of the time to show increased abductor strength STG Duration 07/02/20 Five Impairment Severe spasm in left QL results in mechanical scoliosis Bakery Team Leader Goal (LTG) Decreased muscle tone in left QL to moderate for improved posture. LTG Duration Met Four Impairment Limited hip ROM Bakery Team Leader Goal (LTG) Pt to tolerate passive ROM of 70? flexion and 45? abduction bilaterally LTG Duration 08/02/20 Three Impairment Significant bilateral hip weakness Bakery Team Leader Goal (LTG) Pt to demonstrate bilateral hip MMT of at least 3+/5 in all planes LTG Duration 08/02/20 Two Impairment Gait speed of 2.96 ft/sec during 2 MWT /s AD Short Term Goal (STG) A gait speed of <1.77' can indicate an increased risk of further functional decline. Pt will demonstrate a gait speed >1.77 during a 2 minute walk test using a SPC STG Duration Met Bakery Team Leader Goal (LTG) Pt to complete a 6 MWT without an assistive device and a gait speed >1.77 ft/sec LTG Duration 08/02/20 One Impairment Pt does not have an appropriate home exercise program Short Term Goal (STG) Pt to be independent and compliant with an appropriate HEP STG Duration Met Assessment Summary Assessment Pt doing very well following her second SHERIDAN. Pt's current rehab course will be complicated by her greater trochanter fracture, which limits her ability to abduct her left leg, and results in pain and a Trendelenberg gait pattern. Her recent R SHERIDAN has been progressing very well. Pt should benefit from skilled therapy focusing on gait training, improving hip strength and ROM, and improving activity tolerance. Physical Therapy Plan Frequency and Duration Frequency of Treatment 2x/Week Duration of Treatment 2 months Plan of Care Start Date 06/02/20 Plan of Care End Date 08/02/20 Therapeutic Interventions Therapeutic Interventions Aquatic Therapy,Coordination Training,Gait Training,Home Exercise Program,Joint Mobilizations,Manual Therapy, Neuromuscular Re-education, Patient/Caregiver Education, Self-Care/Home Management, Therapeutic Exercises Modalities Cold Pack/Ice Massage,Electric Stimulation,Hot Packs, Ultrasound Next Visit Focus/Plan Next Note Type Treatment Note Next Visit Plan Gait training, strengthening, ROM, STM to QL
--- NOTE | 2020-06-02 12:03 | PT.OPPOC ---
Physical, Occupational & Speech Therapy At [facility] Current Diagnoses Pain in right hip (06/02/20) Pain in left hip (06/02/20) Stiffness of right hip, not elsewhere classified (06/02/20) Stiffness of left hip, not elsewhere classified (06/02/20) Other abnormalities of gait and mobility (06/02/20) Weakness (06/02/20) Presence of right artificial hip joint (06/02/20) Visit Care Team Role Provider Type Roberto Carlos Sood MD Primary Care Provider Physician Specialty: Internal Medicine Address: [address] [place] [address], [facility] Email: [email or web address] Xander Martinez MD Attending Provider Non-Staff Referring Provider Specialty: Orthopedics Address: [address] [place] [address], [facility] Email: Plan Of Care PT-OP-T Assessment and Plan Start: 03/06/20 12:11 Freq: Status: Active Protocol: Document 06/02/20 11:18 DCW (Rec: 06/02/20 12:02 DCW [id number]) Physical Therapy Assessment Impairments Impairments Activity Tolerance,Balance, Functional Activities, Functional Mobility,Gait,Pain, Posture,ROM,Soft Tissue Mobility,Strength,Tone Goals Six Impairment Pt amb /c Trendelenberg gait due to abd weakness Short Term Goal (STG) Pt to demonstrate gait with no trendelenberg pattern 70% of the time to show increased abductor strength STG Duration 07/02/20 Five Impairment 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 LTG Duration Met Four Impairment Limited hip ROM Correction Goal (LTG) Pt to tolerate passive ROM of 70? flexion and 45? abduction bilaterally LTG Duration 08/02/20 Three Impairment Significant bilateral hip weakness Music Education Adjunct Professor Goal (LTG) Pt to demonstrate bilateral hip MMT of at least 3+/5 in all planes LTG Duration 08/02/20 Two Impairment Gait speed of 2.96 ft/sec during 2 MWT /s AD Short Term Goal (STG) A gait speed of <1.77' can indicate an increased risk of further functional decline. Pt will demonstrate a gait speed >1.77 during a 2 minute walk test using a SPC STG Duration Met Correction Goal (LTG) Pt to complete a 6 MWT without an assistive device and a gait speed >1.77 ft/sec LTG Duration 08/02/20 One Impairment Pt does not have an appropriate home exercise program Short Term Goal (STG) Pt to be independent and compliant with an appropriate HEP STG Duration Met Assessment Summary Assessment Pt doing very well following her second SHERIDAN. Pt's current rehab course will be complicated by her greater trochanter fracture, which limits her ability to abduct her left leg, and results in pain and a Trendelenberg gait pattern. Her recent R SHERIDAN has been progressing very well. Pt should benefit from skilled therapy focusing on gait training, improving hip strength and ROM, and improving activity tolerance. Physical Therapy Plan Frequency and Duration Frequency of Treatment 2x/Week Duration of Treatment 2 months Plan of Care Start Date 06/02/20 Plan of Care End Date 08/02/20 Therapeutic Interventions Therapeutic Interventions Aquatic Therapy,Coordination Training,Gait Training,Home Exercise Program,Joint Mobilizations,Manual Therapy, Neuromuscular Re-education, Patient/Caregiver Education, Self-Care/Home Management, Therapeutic Exercises Modalities Cold Pack/Ice Massage,Electric Stimulation,Hot Packs, Ultrasound Next Visit Focus/Plan Next Note Type Treatment Note Next Visit Plan Gait training, strengthening, ROM, STM to QL Plan of Care Dates Plan of Care Start Date 06/02/20 Plan of Care End Date 08/02/20 Electronically Signed by: Adam Gr, PT 06/02/20 9015 Please Sign and Return: I have reviewed this Plan of Care and certify that the skilled therapy services above are required to meet the patient?s needs. Physician Signature Date Printed Name and Credentials Clinical Instructor Signature Printed Name and Credentials
--- NOTE | 2020-06-07 11:54 | PT.OTN ---
Current Diagnoses Pain in right hip (06/07/20) Pain in left hip (06/07/20) Stiffness of right hip, not elsewhere classified (06/07/20) Stiffness of left hip, not elsewhere classified (06/07/20) Other abnormalities of gait and mobility (06/07/20) Weakness (06/07/20) Presence of right artificial hip joint (06/07/20) Physical Therapy Treatment Note PT-OP-A Visit Information Start: 03/06/20 12:11 Freq: Status: Active Protocol: Document 06/07/20 11:15 DCW (Rec: 06/07/20 11:54 DCW [id number]) Out-Patient Physical Therapy Visit Information Visit Information Visit Type Treatment Note Visit Note short session d/t insurance limits Visit Start Time 11:15 Visit Stop Time 11:50 Total Visit Minutes 35 Visit Number 10 Number of TELEMETRY TECH Visits 0 Evaluation Information Evaluation Date 03/06/20 PT-OP-B Current Condition Start: 03/06/20 12:11 Freq: Status: Active Protocol: Document 06/02/20 11:18 DCW (Rec: 06/02/20 11:38 DCW [id number]) Current Condition History of Current Condition Onset Date 02/28/20 Current Complaints Hip pain and stiffness following L SHERIDAN History of Current Condition Pt is a 34 year old female presenting one weeks s/p R SHERIDAN secondary to a long-standing history of back and hip problems due to avascular necrosis. Pt reports her left hip is scheduled for a SHERIDAN in April of this year, but at this time her left leg is so weak and painful, she is afraid it will negatively impact the rehab of her right SHERIDAN. 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 Admits that she has lost most of the muscle mass in her legs from atrophy, due to the fact that she is unable to do much activity at all without severe pain. Pt notes that before her surgery, she was only able to walk ~1.5 blocks, and that was with severe pain. Pt notes that with activity, her hip is a 9/ 10 in pain level, and at rest, this decreases to a 6/10. ADDENDUM 06/02/2020: Pt returns to therapy today following a Left SHERIDAN on 05/09/20. Pt reports she was supposed to start therapy two weeks ago, but was asked to hold off due to a greater trochanter fracture that happened at some point either during or after surgery. Pt walking without a walker for short distances, but uses it for shopping or longer distances. Pt reports she is very sore and fatigued on days following trips [place] Notes that it is slowly getting better, but sleep has been horrendous. Pt also notes that the right side feels good, I don't have any complaints about it, and my back is doing much better, I feel like my alignment is much better now. Prior Treatments and Tests R SHERIDAN 02/28/20 L SHERIDAN 05/09/20 Treatment Goals Patient/Caregiver Goals I want to be able to walk without pain. PT-OP-C Subjective Start: 03/06/20 12:11 Freq: Status: Active Protocol: Document 06/07/20 11:15 DCW (Rec: 06/07/20 11:54 DCW [id number]) OP-PT Subjective Patient Comments Patient Comments Pt reports walking is going pretty well, she does feel it the next day if she is out doing anything that involves increased walking. Pt's one real complaint is sleeping comfortably. PT-OP-E Functional Tests Start: 03/06/20 12:11 Freq: Status: Active Protocol: Document 06/02/20 11:18 DCW (Rec: 06/02/20 11:38 DCW [id number]) Functional Tests 2 Minute Walk Test Distance 357' Device Used None Comments 2.96 ft/sec PT-OP-F Manual Assessment Start: 03/06/20 12:43 Freq: Status: Active Protocol: Document 06/02/20 11:18 DCW (Rec: 06/02/20 11:38 DCW [id number]) Manual Assessments Soft Tissue Assessment Soft Tissue Mobility Assessment Significantly reduced tone in left QL vs initial evaluation, minimal mechanical scoliosis. PT-OP-G Mobility & Gait Start: 06/02/20 11:38 Freq: Status: Active Protocol: Document 06/02/20 11:18 DCW (Rec: 06/02/20 11:39 DCW [id number]) OP Gait Assessment Gait Gait Assistance Required: Independent Distance (Feet) 357 Able to Maintain Weight Bearing Status Yes During Gait Assistive Devices Assistive Device None Gait Deviations General Gait Pattern Ataxic,Lateral Trunk Lean Factors Limiting Gait Function Factors Limiting Gait Function Abnormal Tonal Influences, Decreased Activity Tolerance, Decreased Strength Comments Gait Comments Trendelenberg gait due to left abductor weakness. PT-OP-J Posture/Palpation/Skin Start: 03/06/20 12:43 Freq: Status: Active Protocol: Document 06/02/20 11:18 DCW (Rec: 06/02/20 11:38 DCW [id number]) Posture Evaluation Position Standing Scapula Posture (L) Elevated Weight Distribution Weight Shifted Right,Decreased Wt.Bear on (L) PT-OP-K Range of Motion Start: 03/06/20 12:11 Freq: Status: Active Protocol: Document 06/02/20 11:18 DCW (Rec: 06/02/20 11:38 DCW [id number]) Hip Goniometric Range of Motion Hip Right Passive Testing Position Supine Straight Leg Raise 47 Abduction 42 Left Passive Testing Position Supine Straight Leg Raise 52 Abduction 30 PT-OP-M Strength Start: 03/06/20 12:11 Freq: Status: Active Protocol: Document 06/02/20 11:18 DCW (Rec: 06/02/20 11:38 DCW [id number]) Hip Strength Hip Manual Muscle Testing Right Flexion (L2) 4 Good Abduction 3 Fair Adduction 3+ Fair+ Left Flexion (L2) 3 Fair Abduction 2 Poor Adduction 2+ Poor+ PT-OP-Q Treatments Start: 03/06/20 12:11 Freq: Status: Active Protocol: Document 06/07/20 11:15 DCW (Rec: 06/07/20 11:54 DCW [id number]) Cardio Equipment Recumbent Elliptical (Biodex) Duration (Minutes) 5 Resistance 4 Seat Position 7 Gym Equipment Shuttle Recovery Unilateral Squats Details R Resistance 25# Reps/Time 30 Bilateral Squats Resistance 50# Reps/Time 30 Therapeutic Exercises Supine Exercises 2 Supine Exercise Name pelvic tilts Reps/Minutes 30 1 Supine Exercise Name SLR Side bilateral Reps/Minutes 10 Sidelying Exercises 1 Sidelying Exercise Name Clamshell Side left Comments AAROM Sitting Exercises 1 Sitting Exercise Name LAQ Side bilateral Resistance 4# Standing Exercises step up Standing Exercise Name 6 in Side bilateral Equipment Used rail for balance Reps/Minutes x15 minisquat Side bilateral Reps/Minutes 10 2 Standing Exercise Name Hip Extension Side bilateral Resistance Lv 1 Equipment Used T-band Reps/Minutes 2x10 1 Standing Exercise Name Hip Abduction Side bilateral Resistance Lv 1 Equipment Used T-band Comments stopped d/t L hip pain PT-OP-T Assessment and Plan Start: 03/06/20 12:11 Freq: Status: Active Protocol: Document 06/07/20 11:15 DCW (Rec: 06/07/20 11:54 DCW [id number]) Physical Therapy Assessment Impairments Impairments Activity Tolerance,Balance, Functional Activities, Functional Mobility,Gait,Pain, Posture,ROM,Soft Tissue Mobility,Strength,Tone Goals Six Impairment Pt amb /c Trendelenberg gait due to abd weakness Short Term Goal (STG) Pt to demonstrate gait with no trendelenberg pattern 70% of the time to show increased abductor strength STG Duration 07/02/20 Five Impairment Severe spasm in left QL results in mechanical scoliosis Sprinkler Driver Goal (LTG) Decreased muscle tone in left QL to moderate for improved posture. LTG Duration Met Four Impairment Limited hip ROM Sprinkler Driver Goal (LTG) Pt to tolerate passive ROM of 70? flexion and 45? abduction bilaterally LTG Duration 08/02/20 Three Impairment Significant bilateral hip weakness Sprinkler Driver Goal (LTG) Pt to demonstrate bilateral hip MMT of at least 3+/5 in all planes LTG Duration 08/02/20 Two Impairment Gait speed of 2.96 ft/sec during 2 MWT /s AD Short Term Goal (STG) A gait speed of <1.77' can indicate an increased risk of further functional decline. Pt will demonstrate a gait speed >1.77 during a 2 minute walk test using a SPC STG Duration Met Skilled Nursing Goal (LTG) Pt to complete a 6 MWT without an assistive device and a gait speed >1.77 ft/sec LTG Duration 08/02/20 One Impairment Pt does not have an appropriate home exercise program Short Term Goal (STG) Pt to be independent and compliant with an appropriate HEP STG Duration Met Assessment Summary Assessment Pt had some participation limitations today secondary to left hip and knee pain, but overall is tolerating therapy well. Pt should continue to benefit from hip strengthening and mobility bilaterally, as well as improving activity tolerance. Physical Therapy Plan Frequency and Duration Frequency of Treatment 2x/Week Duration of Treatment 2 months Plan of Care Start Date 06/02/20 Plan of Care End Date 08/02/20 Therapeutic Interventions Therapeutic Interventions Aquatic Therapy,Coordination Training,Gait Training,Home Exercise Program,Joint Mobilizations,Manual Therapy, Neuromuscular Re-education, Patient/Caregiver Education, Self-Care/Home Management, Therapeutic Exercises Modalities Cold Pack/Ice Massage,Electric Stimulation,Hot Packs, Ultrasound Next Visit Focus/Plan Next Note Type Treatment Note Next Visit Plan Gait training, strengthening, ROM, STM to QL
--- NOTE | 2020-06-23 11:12 | PT.OTN ---
Current Diagnoses Pain in right hip (06/23/20) Pain in left hip (06/23/20) Stiffness of right hip, not elsewhere classified (06/23/20) Stiffness of left hip, not elsewhere classified (06/23/20) Other abnormalities of gait and mobility (06/23/20) Weakness (06/23/20) Presence of right artificial hip joint (06/23/20) Physical Therapy Treatment Note PT-OP-A Visit Information Start: 03/06/20 12:11 Freq: Status: Active Protocol: Document 06/23/20 10:30 DCW (Rec: 06/23/20 11:12 DCW [id number]) Out-Patient Physical Therapy Visit Information Visit Information Visit Type Treatment Note Visit Start Time 10:30 Visit Stop Time 11:15 Total Visit Minutes 45 Visit Number 11 Number of MANAGER FILM Visits 0 Evaluation Information Evaluation Date 03/06/20 PT-OP-B Current Condition Start: 03/06/20 12:11 Freq: Status: Active Protocol: Document 06/02/20 11:18 DCW (Rec: 06/02/20 11:38 DCW [id number]) Current Condition History of Current Condition Onset Date 02/28/20 Current Complaints Hip pain and stiffness following L SHERIDAN History of Current Condition Pt is a 34 year old female presenting one weeks s/p R SHERIDAN secondary to a long-standing history of back and hip problems due to avascular necrosis. Pt reports her left hip is scheduled for a SHERIDAN in April of this year, but at this time her left leg is so weak and painful, she is afraid it will negatively impact the rehab of her right SHERIDAN. 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 Admits that she has lost most of the muscle mass in her legs from atrophy, due to the fact that she is unable to do much activity at all without severe pain. Pt notes that before her surgery, she was only able to walk ~1.5 blocks, and that was with severe pain. Pt notes that with activity, her hip is a 9/ 10 in pain level, and at rest, this decreases to a 6/10. ADDENDUM 06/02/2020: Pt returns to therapy today following a Left SHERIDAN on 05/09/20. Pt reports she was supposed to start therapy two weeks ago, but was asked to hold off due to a greater trochanter fracture that happened at some point either during or after surgery. Pt walking without a walker for short distances, but uses it for shopping or longer distances. Pt reports she is very sore and fatigued on days following trips to the [place]. Notes that it is slowly getting better, but sleep has been horrendous. Pt also notes that the right side feels good, I don't have any complaints about it, and my back is doing much better, I feel like my alignment is much better now. Prior Treatments and Tests R SHERIDAN 02/28/20 L SHERIDAN 05/09/20 Treatment Goals Patient/Caregiver Goals I want to be able to walk without pain. PT-OP-C Subjective Start: 03/06/20 12:11 Freq: Status: Active Protocol: Document 06/23/20 10:30 DCW (Rec: 06/23/20 11:12 DCW [id number]) OP-PT Subjective Patient Comments Patient Comments Pt reports her left hip has been a little sore recently, thinks it may have something to do with how she sits on her couch. Notes there has not been any sudden, dramatic improvement. PT-OP-E Functional Tests Start: 03/06/20 12:11 Freq: Status: Active Protocol: Document 06/02/20 11:18 DCW (Rec: 06/02/20 11:38 DCW [id number]) Functional Tests 2 Minute Walk Test Distance 357' Device Used None Comments 2.96 ft/sec PT-OP-F Manual Assessment Start: 03/06/20 12:43 Freq: Status: Active Protocol: Document 06/02/20 11:18 DCW (Rec: 06/02/20 11:38 DCW [id number]) Manual Assessments Soft Tissue Assessment Soft Tissue Mobility Assessment Significantly reduced tone in left QL vs initial evaluation, minimal mechanical scoliosis. PT-OP-G Mobility & Gait Start: 06/02/20 11:38 Freq: Status: Active Protocol: Document 06/02/20 11:18 DCW (Rec: 06/02/20 11:39 DCW [id number]) OP Gait Assessment Gait Gait Assistance Required: Independent Distance (Feet) 357 Able to Maintain Weight Bearing Status Yes During Gait Assistive Devices Assistive Device None Gait Deviations General Gait Pattern Ataxic,Lateral Trunk Lean Factors Limiting Gait Function Factors Limiting Gait Function Abnormal Tonal Influences, Decreased Activity Tolerance, Decreased Strength Comments Gait Comments Trendelenberg gait due to left abductor weakness. PT-OP-J Posture/Palpation/Skin Start: 03/06/20 12:43 Freq: Status: Active Protocol: Document 06/02/20 11:18 DCW (Rec: 06/02/20 11:38 DCW [id number]) Posture Evaluation Position Standing Scapula Posture (L) Elevated Weight Distribution Weight Shifted Right,Decreased Wt.Bear on (L) PT-OP-K Range of Motion Start: 03/06/20 12:11 Freq: Status: Active Protocol: Document 06/02/20 11:18 DCW (Rec: 06/02/20 11:38 DCW [id number]) Hip Goniometric Range of Motion Hip Right Passive Testing Position Supine Straight Leg Raise 47 Abduction 42 Left Passive Testing Position Supine Straight Leg Raise 52 Abduction 30 PT-OP-M Strength Start: 03/06/20 12:11 Freq: Status: Active Protocol: Document 06/02/20 11:18 DCW (Rec: 06/02/20 11:38 DCW [id number]) Hip Strength Hip Manual Muscle Testing Right Flexion (L2) 4 Good Abduction 3 Fair Adduction 3+ Fair+ Left Flexion (L2) 3 Fair Abduction 2 Poor Adduction 2+ Poor+ PT-OP-Q Treatments Start: 03/06/20 12:11 Freq: Status: Active Protocol: Document 06/23/20 10:30 DCW (Rec: 06/23/20 11:12 DCW [id number]) Cardio Equipment Recumbent Elliptical (BiodThe Switch) Duration (Minutes) 5 Resistance 4 Seat Position 7 Gym Equipment Shuttle Recovery Unilateral Squats Resistance 25# R, 12# L Reps/Time 30 Bilateral Squats Resistance 50# Reps/Time 30 Shuttle Balance 1 Details red clips Comments WBOS, Staggered, Lateral Weight Shift Therapeutic Exercises Standing Exercises 3 Standing Exercise Name Toe taps Side bilateral Resistance 4# step up Standing Exercise Name Step up/down Side left Equipment Used 6 step 2 Standing Exercise Name Hip Extension Side bilateral Resistance Yellow Equipment Used T-band Reps/Minutes 2x10 Other Exercises 1 Other Exercise Name Resisted Ambulation Resistance Yellow Equipment Used T-band PT-OP-T Assessment and Plan Start: 03/06/20 12:11 Freq: Status: Active Protocol: Document 06/23/20 10:30 DCW (Rec: 06/23/20 11:12 DCW [id number]) Physical Therapy Assessment Impairments Impairments Activity Tolerance,Balance, Functional Activities, Functional Mobility,Gait,Pain, Posture,ROM,Soft Tissue Mobility,Strength,Tone Goals Six Impairment Pt amb /c Trendelenberg gait due to abd weakness Short Term Goal (STG) Pt to demonstrate gait with no trendelenberg pattern 70% of the time to show increased abductor strength STG Duration 07/02/20 Five Impairment Severe spasm in left QL results in mechanical scoliosis Appliance Fixer Goal (LTG) Decreased muscle tone in left QL to moderate for improved posture. LTG Duration Met Four Impairment Limited hip ROM Group Home Goal (LTG) Pt to tolerate passive ROM of 70? flexion and 45? abduction bilaterally LTG Duration 08/02/20 Three Impairment Significant bilateral hip weakness Appliance Fixer Goal (LTG) Pt to demonstrate bilateral hip MMT of at least 3+/5 in all planes LTG Duration 08/02/20 Two Impairment Gait speed of 2.96 ft/sec during 2 MWT /s AD Short Term Goal (STG) A gait speed of <1.77' can indicate an increased risk of further functional decline. Pt will demonstrate a gait speed >1.77 during a 2 minute walk test using a SPC STG Duration Met Appliance Fixer Goal (LTG) Pt to complete a 6 MWT without an assistive device and a gait speed >1.77 ft/sec LTG Duration 08/02/20 One Impairment Pt does not have an appropriate home exercise program Short Term Goal (STG) Pt to be independent and compliant with an appropriate HEP STG Duration Met Assessment Summary Assessment Change in insurance auth makes it easier for full 45-minute treatment sessions. Pt slightly more fatigued with full session, but able to tolerate all activities with minimal complaints or soreness . Physical Therapy Plan Frequency and Duration Frequency of Treatment 2x/Week Duration of Treatment 2 months Plan of Care Start Date 06/02/20 Plan of Care End Date 08/02/20 Therapeutic Interventions Therapeutic Interventions Aquatic Therapy,Coordination Training,Gait Training,Home Exercise Program,Joint Mobilizations,Manual Therapy, Neuromuscular Re-education, Patient/Caregiver Education, Self-Care/Home Management, Therapeutic Exercises Modalities Cold Pack/Ice Massage,Electric Stimulation,Hot Packs, Ultrasound Next Visit Focus/Plan Next Note Type Treatment Note Next Visit Plan Gait training, strengthening, ROM, STM to QL
--- NOTE | 2020-07-12 10:52 | PT-OP ANOTE ---
Pt was called re: no show and left message re: rescheduling if able.
--- NOTE | 2020-08-01 15:53 | PT.OTN ---
Current Diagnoses Pain in right hip (08/01/20) Pain in left hip (08/01/20) Stiffness of right hip, not elsewhere classified (08/01/20) Stiffness of left hip, not elsewhere classified (08/01/20) Other abnormalities of gait and mobility (08/01/20) Weakness (08/01/20) Presence of right artificial hip joint (08/01/20) Physical Therapy Treatment Note PT-OP-A Visit Information Start: 03/06/20 12:11 Freq: Status: Active Protocol: Document 08/01/20 11:18 [facility] (Rec: 08/01/20 12:22 [facility] [id number]) Out-Patient Physical Therapy Visit Information Visit Information Visit Type Progress Note Visit Note 09/13 Visit Start Time 11:19 Visit Stop Time 11:59 Total Visit Minutes 40 Visit Number 12 Number of AUTOMOTIVE ELECTRICIAN HELPER Visits 0 PT-OP-B Current Condition Start: 03/06/20 12:11 Freq: Status: Active Protocol: Document 06/02/20 11:18 [facility] (Rec: 06/02/20 11:38 [facility] [id number]) Current Condition History of Current Condition Onset Date 02/28/20 Current Complaints Hip pain and stiffness following L SHERIDAN History of Current Condition Pt is a 34 year old female presenting one weeks s/p R SHERIDAN secondary to a long-standing history of back and hip problems due to avascular necrosis. Pt reports her left hip is scheduled for a SHERIDAN in April of this year, but at this time her left leg is so weak and painful, she is afraid it will negatively impact the rehab of her right SHERIDAN. 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 Admits that she has lost most of the muscle mass in her legs from atrophy, due to the fact that she is unable to do much activity at all without severe pain. Pt notes that before her surgery, she was only able to walk ~1.5 blocks, and that was with severe pain. Pt notes that with activity, her hip is a 9/ 10 in pain level, and at rest, this decreases to a 6/10. ADDENDUM 06/02/2020: Pt returns to therapy today following a Left SHERIDAN on 05/09/20. Pt reports she was supposed to start therapy two weeks ago, but was asked to hold off due to a greater trochanter fracture that happened at some point either during or after surgery. Pt walking without a walker for short distances, but uses it for shopping or longer distances. Pt reports she is very sore and fatigued on days following trips to the [place]. Notes that it is slowly getting better, but sleep has been horrendous. Pt also notes that the right side feels good, I don't have any complaints about it, and my back is doing much better, I feel like my alignment is much better now. Prior Treatments and Tests R SHERIDAN 02/28/20 L SHERIDAN 05/09/20 Treatment Goals Patient/Caregiver Goals I want to be able to walk without pain. PT-OP-C Subjective Start: 03/06/20 12:11 Freq: Status: Active Protocol: Document 08/01/20 11:18 [facility] (Rec: 08/01/20 12:22 [facility] [id number]) OP-PT Subjective Patient Comments Patient Comments Pt reprots she missed appts d/ t pain in L then also R inc about 07/16 so Xray done. Xray was clear but still noting pain PT-OP-E Functional Tests Start: 03/06/20 12:11 Freq: Status: Active Protocol: Document 08/01/20 11:18 [facility] (Rec: 08/01/20 12:22 [facility] [id number]) Functional Tests 6 Minute Walk Test Distance 1059ft Device Used none Functional Gait Assessment Score 1830 PT-OP-F Manual Assessment Start: 03/06/20 12:43 Freq: Status: Active Protocol: Document 06/02/20 11:18 [facility] (Rec: 06/02/20 11:38 [facility] [id number]) Manual Assessments Soft Tissue Assessment Soft Tissue Mobility Assessment Significantly reduced tone in left QL vs initial evaluation, minimal mechanical scoliosis. PT-OP-G Mobility & Gait Start: 06/02/20 11:38 Freq: Status: Active Protocol: Document 06/02/20 11:18 [facility] (Rec: 06/02/20 11:39 [facility] [id number]) OP Gait Assessment Gait Gait Assistance Required: Independent Distance (Feet) 357 Able to Maintain Weight Bearing Status Yes During Gait Assistive Devices Assistive Device None Gait Deviations General Gait Pattern Ataxic,Lateral Trunk Lean Factors Limiting Gait Function Factors Limiting Gait Function Abnormal Tonal Influences, Decreased Activity Tolerance, Decreased Strength Comments Gait Comments Trendelenberg gait due to left abductor weakness. PT-OP-J Posture/Palpation/Skin Start: 03/06/20 12:43 Freq: Status: Active Protocol: Document 06/02/20 11:18 [facility] (Rec: 06/02/20 11:38 [facility] [id number]) Posture Evaluation Position Standing Scapula Posture (L) Elevated Weight Distribution Weight Shifted Right,Decreased Wt.Bear on (L) PT-OP-K Range of Motion Start: 03/06/20 12:11 Freq: Status: Active Protocol: Document 08/01/20 11:18 [facility] (Rec: 08/01/20 12:22 [facility] [id number]) Hip Goniometric Range of Motion Hip Right Passive Flexion w/Knee Flexed 106 Abduction 24 Left Passive Flexion w/Knee Flexed 103 Abduction 23 PT-OP-M Strength Start: 03/06/20 12:11 Freq: Status: Active Protocol: Document 08/01/20 11:18 [facility] (Rec: 08/01/20 12:22 [facility] [id number]) Hip Strength Hip Manual Muscle Testing Right Flexion (L2) 4+ Good+ Extension (S1) 3+ Fair+ Abduction 4- Good- Adduction 3+ Fair+ External Rotation 4 Good Internal Rotation 4 Good Comments rotations tested in very small range Left Flexion (L2) 4- Good- Extension (S1) 3 Fair Abduction 3 Fair External Rotation 3+ Fair+ Internal Rotation 3+ Fair+ PT-OP-Q Treatments Start: 03/06/20 12:11 Freq: Status: Active Protocol: Document 08/01/20 11:18 [facility] (Rec: 08/01/20 12:22 [facility] [id number]) Manual Therapy Treatment Soft Tissue Mobilization scar tissue Body Location MFR to B scars Self-Care/Home Management Treatment Education Other Education self scar tissue mobs PT-OP-T Assessment and Plan Start: 03/06/20 12:11 Freq: Status: Active Protocol: Document 08/01/20 11:18 [facility] (Rec: 08/01/20 12:22 [facility] [id number]) Physical Therapy Assessment Goals Six Impairment Pt amb /c Trendelenberg gait due to abd weakness Short Term Goal (STG) Pt to demonstrate gait with no trendelenberg pattern 70% of the time to show increased abductor strength STG Duration achieved Shelter Goal (LTG) Pt will be able to walk on uneven ground and do backwards /sidesteps as needed when in areas with other peopel or animals to dec risk for falls. LTG Duration 10/01/20 Five Short Term Goal (STG) Pt will be able to ascend and descend stairs reciprocally with rail. STG Duration 08/31/20 Shelter Goal (LTG) Pt will be able to ascend and descend stairs reciprocally without rail. LTG Duration 10/01/20 Four Impairment Limited hip ROM Shirt Turner Goal (LTG) Pt to tolerate passive ROM of 70? flexion and 45? abduction bilaterally 08/01- achieved passive flex, but not abd LTG Duration 10/01/20 Three Impairment Significant bilateral hip weakness Shirt Turner Goal (LTG) Pt to demonstrate bilateral hip MMT of at least 3+/5 in all planes 08/01-achieved in most planes- progress goal to at least 4/5 for hip and knee MMT LTG Duration 10/01/20 Two Impairment Gait speed of 2.96 ft/sec during 2 MWT /s AD Short Term Goal (STG) A gait speed of <1.77' can indicate an increased risk of further functional decline. Pt will demonstrate a gait speed >1.77 during a 2 minute walk test using a SPC STG Duration Met Shirt Turner Goal (LTG) Pt to complete a 6 MWT without an assistive device and a gait speed <1.77 ft/sec 08/01-2.9 ft/sec without AD LTG Duration 10/01/20 One Impairment FGA 18/30 Short Term Goal (STG) Pt will be onofre to step over a shoe box without LOB and/or stopping. STG Duration 08/31/20 Shelter Goal (LTG) Pt will score at least 25/30 on FMA to show dec risk for falls and improved balance. LTG Duration 10/01/20 Assessment Summary Assessment Pt has made excellent progress with her pain, strength, gait and ROM over her PT appointments thus far but does still has limitations d/t length of tiem she had hip pain and complex medical history. She would benefit from cont PT to work on progressing return to improved functional ability and improved balance and strength. She still has impairments iwth gait mechanics with dec push off B and would bneefit from cont gait training. Physical Therapy Plan Frequency and Duration Frequency of Treatment 2x/Week Duration of Treatment 2 months Plan of Care Start Date 08/01/20 Plan of Care End Date 10/01/20 Therapeutic Interventions Therapeutic Interventions Aquatic Therapy,Coordination Training,Gait Training,Home Exercise Program,Joint Mobilizations,Manual Therapy, Neuromuscular Re-education, Patient/Caregiver Education, Self-Care/Home Management, Therapeutic Exercises Modalities Cold Pack/Ice Massage,Electric Stimulation,Hot Packs, Ultrasound Next Visit Focus/Plan Next Note Type Treatment Note Next Visit Plan work on quad and glute strengthening for step ups, work on balance for uneven surfaces & dynamic balance
--- NOTE | 2020-08-01 15:53 | PT.OPPOC ---
Physical, Occupational & Speech Therapy At [facility] Current Diagnoses Pain in right hip (08/01/20) Pain in left hip (08/01/20) Stiffness of right hip, not elsewhere classified (08/01/20) Stiffness of left hip, not elsewhere classified (08/01/20) Other abnormalities of gait and mobility (08/01/20) Weakness (08/01/20) Presence of right artificial hip joint (08/01/20) Visit Care Team Role Provider Type Roberto Carlos Sood MD Primary Care Provider Physician Specialty: Internal Medicine Address: [address] [place] [address], [facility] Email: [email or web address] Xander Martinez MD Attending Provider Non-Staff Referring Provider Specialty: Orthopedics Address: [address] [place] [address], [facility] Email: Plan Of Care PT-OP-T Assessment and Plan Start: 03/06/20 12:11 Freq: Status: Active Protocol: Document 08/01/20 11:18 [facility] (Rec: 08/01/20 12:22 [facility] [id number]) Physical Therapy Assessment Goals Six Impairment Pt amb /c Trendelenberg gait due to abd weakness Short Term Goal (STG) Pt to demonstrate gait with no trendelenberg pattern 70% of the time to show increased abductor strength STG Duration achieved Marketing Regional Consultant Goal (LTG) Pt will be able to walk on uneven ground and do backwards /sidesteps as needed when in areas with other peopel or animals to dec risk for falls. LTG Duration 10/01/20 Five Short Term Goal (STG) Pt will be able to ascend and descend stairs reciprocally with rail. STG Duration 08/31/20 Marketing Regional Consultant Goal (LTG) Pt will be able to ascend and descend stairs reciprocally without rail. LTG Duration 10/01/20 Four Impairment Limited hip ROM Marketing Regional Consultant Goal (LTG) Pt to tolerate passive ROM of 70? flexion and 45? abduction bilaterally 08/01- achieved passive flex, but not abd LTG Duration 10/01/20 Three Impairment Significant bilateral hip weakness Long-Term Goal (LTG) Pt to demonstrate bilateral hip MMT of at least 3+/5 in all planes 08/01-achieved in most planes- progress goal to at least 4/5 for hip and knee MMT LTG Duration 10/01/20 Two Impairment Gait speed of 2.96 ft/sec during 2 MWT /s AD Short Term Goal (STG) A gait speed of <1.77' can indicate an increased risk of further functional decline. Pt will demonstrate a gait speed >1.77 during a 2 minute walk test using a SPC STG Duration Met Marketing Regional Consultant Goal (LTG) Pt to complete a 6 MWT without an assistive device and a gait speed <1.77 ft/sec 08/01-2.9 ft/sec without AD LTG Duration 10/01/20 One Impairment FGA 18/30 Short Term Goal (STG) Pt will be onofre to step over a shoe box without LOB and/or stopping. STG Duration 08/31/20 Long-Term Goal (LTG) Pt will score at least 25/30 on FMA to show dec risk for falls and improved balance. LTG Duration 10/01/20 Assessment Summary Assessment Pt has made excellent progress with her pain, strength, gait and ROM over her PT appointments thus far but does still has limitations d/t length of tiem she had hip pain and complex medical history. She would benefit from cont PT to work on progressing return to improved functional ability and improved balance and strength. She still has impairments iwth gait mechanics with dec push off B and would bneefit from cont gait training. Physical Therapy Plan Frequency and Duration Frequency of Treatment 2x/Week Duration of Treatment 2 months Plan of Care Start Date 08/01/20 Plan of Care End Date 10/01/20 Therapeutic Interventions Therapeutic Interventions Aquatic Therapy,Coordination Training,Gait Training,Home Exercise Program,Joint Mobilizations,Manual Therapy, Neuromuscular Re-education, Patient/Caregiver Education, Self-Care/Home Management, Therapeutic Exercises Modalities Cold Pack/Ice Massage,Electric Stimulation,Hot Packs, Ultrasound Next Visit Focus/Plan Next Note Type Treatment Note Next Visit Plan work on quad and glute strengthening for step ups, work on balance for uneven surfaces & dynamic balance Plan of Care Dates Plan of Care Start Date 08/01/20 Plan of Care End Date 10/01/20 Electronically Signed by: Magali James, PT 08/01/20 [id number] Please Sign and Return: I have reviewed this Plan of Care and certify that the skilled therapy services above are required to meet the patient?s needs. Physician Signature Date Printed Name and Credentials Clinical Instructor Signature Printed Name and Credentials
--- NOTE | 2020-08-08 10:32 | PT.OTN ---
Current Diagnoses Pain in right hip (08/08/20) Pain in left hip (08/08/20) Stiffness of right hip, not elsewhere classified (08/08/20) Stiffness of left hip, not elsewhere classified (08/08/20) Other abnormalities of gait and mobility (08/08/20) Weakness (08/08/20) Presence of right artificial hip joint (08/08/20) Physical Therapy Treatment Note PT-OP-A Visit Information Start: 03/06/20 12:11 Freq: Status: Active Protocol: Document 08/08/20 09:49 [facility] (Rec: 08/08/20 10:32 [facility] [id number]) Out-Patient Physical Therapy Visit Information Visit Information Visit Type Treatment Note Visit Note Visit Start Time 09:48 Visit Stop Time 10:28 Total Visit Minutes 40 Visit Number 13 Number of DANCE DIRECTOR Visits 0 PT-OP-B Current Condition Start: 03/06/20 12:11 Freq: Status: Active Protocol: Document 06/02/20 11:18 [facility] (Rec: 06/02/20 11:38 DC [id number]) Current Condition History of Current Condition Onset Date 02/28/20 Current Complaints Hip pain and stiffness following L SHERIDAN History of Current Condition Pt is a 34 year old female presenting one weeks s/p R SHERIDAN secondary to a long-standing history of back and hip problems due to avascular necrosis. Pt reports her left hip is scheduled for a SHERIDAN in April of this year, but at this time her left leg is so weak and painful, she is afraid it will negatively impact the rehab of her right SHERIDAN. 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 Admits that she has lost most of the muscle mass in her legs from atrophy, due to the fact that she is unable to do much activity at all without severe pain. Pt notes that before her surgery, she was only able to walk ~1.5 blocks, and that was with severe pain. Pt notes that with activity, her hip is a 9/ 10 in pain level, and at rest, this decreases to a 6/10. ADDENDUM 06/02/2020: Pt returns to therapy today following a Left SHERIDAN on 05/09/20. Pt reports she was supposed to start therapy two weeks ago, but was asked to hold off due to a greater trochanter fracture that happened at some point either during or after surgery. Pt walking without a walker for short distances, but uses it for shopping or longer distances. Pt reports she is very sore and fatigued on days following trips to [place]. Notes that it is slowly getting better, but sleep has been horrendous. Pt also notes that the right side feels good, I don't have any complaints about it, and my back is doing much better, I feel like my alignment is much better now. Prior Treatments and Tests R SHERIDAN 02/28/20 L SHERIDAN 05/09/20 Treatment Goals Patient/Caregiver Goals I want to be able to walk without pain. PT-OP-C Subjective Start: 03/06/20 12:11 Freq: Status: Active Protocol: Document 08/08/20 09:49 [facility] (Rec: 08/08/20 10:32 [facility] [id number]) OP-PT Subjective Patient Comments Patient Comments Pt reports she hasn't contacted d/t noticed pain is more with too large of steps or stepping up w/L onto lip into place. Pt reports she has been rubbing her scars PT-OP-E Functional Tests Start: 03/06/20 12:11 Freq: Status: Active Protocol: Document 08/01/20 11:18 [facility] (Rec: 08/01/20 12:22 [facility] [id number]) Functional Tests 6 Minute Walk Test Distance 1059ft Device Used none Functional Gait Assessment Score 18/30 PT-OP-F Manual Assessment Start: 03/06/20 12:43 Freq: Status: Active Protocol: Document 06/02/20 11:18 [facility] (Rec: 06/02/20 11:38 [facility] [id number]) Manual Assessments Soft Tissue Assessment Soft Tissue Mobility Assessment Significantly reduced tone in left QL vs initial evaluation, minimal mechanical scoliosis. PT-OP-G Mobility & Gait Start: 06/02/20 11:38 Freq: Status: Active Protocol: Document 06/02/20 11:18 [facility] (Rec: 06/02/20 11:39 [facility] [id number]) OP Gait Assessment Gait Gait Assistance Required: Independent Distance (Feet) 357 Able to Maintain Weight Bearing Status Yes During Gait Assistive Devices Assistive Device None Gait Deviations General Gait Pattern Ataxic,Lateral Trunk Lean Factors Limiting Gait Function Factors Limiting Gait Function Abnormal Tonal Influences, Decreased Activity Tolerance, Decreased Strength Comments Gait Comments Trendelenberg gait due to left abductor weakness. PT-OP-J Posture/Palpation/Skin Start: 03/06/20 12:43 Freq: Status: Active Protocol: Document 06/02/20 11:18 [facility] (Rec: 06/02/20 11:38 [facility] [id number]) Posture Evaluation Position Standing Scapula Posture (L) Elevated Weight Distribution Weight Shifted Right,Decreased Wt.Bear on (L) PT-OP-K Range of Motion Start: 03/06/20 12:11 Freq: Status: Active Protocol: Document 08/01/20 11:18 [facility] (Rec: 08/01/20 12:22 [facility] [id number]) Hip Goniometric Range of Motion Hip Right Passive Flexion w/Knee Flexed 106 Abduction 24 Left Passive Flexion w/Knee Flexed 103 Abduction 23 PT-OP-M Strength Start: 03/06/20 12:11 Freq: Status: Active Protocol: Document 08/01/20 11:18 [facility] (Rec: 08/01/20 12:22 [facility] [id number]) Hip Strength Hip Manual Muscle Testing Right Flexion (L2) 4+ Good+ Extension (S1) 3+ Fair+ Abduction 4- Good- Adduction 3+ Fair+ External Rotation 4 Good Internal Rotation 4 Good Comments rotations tested in very small range Left Flexion (L2) 4- Good- Extension (S1) 3 Fair Abduction 3 Fair External Rotation 3+ Fair+ Internal Rotation 3+ Fair+ PT-OP-Q Treatments Start: 03/06/20 12:11 Freq: Status: Active Protocol: Document 08/08/20 09:49 [facility] (Rec: 08/08/20 10:32 [facility] [id number]) Cardio Equipment Recumbent Elliptical (Biodex) Duration (Minutes) 5 Resistance 5 Seat Position 7 Gym Equipment Shuttle Recovery Unilateral Squats Resistance 50# R, 37# L Reps/Time 2x10 Bilateral Squats Resistance 75#, 87# Reps/Time 2x20 Sport Cord fwd walk Exercise Details focus on push off Cord/Resistance green Reps/Duration 12 Gait Training Gait Activity stairs Comments 1. step ups 4 in step w/focus on wt shfit fwd x10 B 2. reciprocal up/down 4 in steps w/o rail 3. reciprocal up/down 6 in step (26) rail touch for balance for down 2 Description fwd walking w/focus on push off 1 Description wt shifts Comments fwd in mirror progressed to step through PT-OP-T Assessment and Plan Start: 03/06/20 12:11 Freq: Status: Active Protocol: Document 08/08/20 09:49 [facility] (Rec: 08/08/20 10:32 [facility] [id number]) Physical Therapy Assessment Goals Six Impairment Pt amb /c Trendelenberg gait due to abd weakness Short Term Goal (STG) Pt to demonstrate gait with no trendelenberg pattern 70% of the time to show increased abductor strength STG Duration achieved Chemical Inspector Goal (LTG) Pt will be able to walk on uneven ground and do backwards /sidesteps as needed when in areas with other peopel or animals to dec risk for falls. LTG Duration 10/01/20 Five Short Term Goal (STG) Pt will be able to ascend and descend stairs reciprocally with rail. STG Duration 08/31/20 Senior Living Goal (LTG) Pt will be able to ascend and descend stairs reciprocally without rail. LTG Duration 10/01/20 Four Impairment Limited hip ROM Chemical Inspector Goal (LTG) Pt to tolerate passive ROM of 70? flexion and 45? abduction bilaterally 08/01- achieved passive flex, but not abd LTG Duration 10/01/20 Three Impairment Significant bilateral hip weakness Senior Living Goal (LTG) Pt to demonstrate bilateral hip MMT of at least 3+/5 in all planes 08/01-achieved in most planes- progress goal to at least 4/5 for hip and knee MMT LTG Duration 10/01/20 Two Impairment Gait speed of 2.96 ft/sec during 2 MWT /s AD Short Term Goal (STG) A gait speed of <1.77' can indicate an increased risk of further functional decline. Pt will demonstrate a gait speed >1.77 during a 2 minute walk test using a SPC STG Duration Met Chemical Inspector Goal (LTG) Pt to complete a 6 MWT without an assistive device and a gait speed <1.77 ft/sec 08/01-2.9 ft/sec without AD LTG Duration 10/01/20 One Impairment FGA 18/30 Short Term Goal (STG) Pt will be onofre to step over a shoe box without LOB and/or stopping. STG Duration 08/31/20 Chemical Inspector Goal (LTG) Pt will score at least 25/30 on FMA to show dec risk for falls and improved balance. LTG Duration 10/01/20 Assessment Summary Assessment Pt able to improve gait with much improved form after edu and especially after use of sport cord for resistance. SHe was then able to work on same concept of wt shift with stairs to improve performance on stairs. Physical Therapy Plan Frequency and Duration Frequency of Treatment 2x/Week Duration of Treatment 2 months Plan of Care Start Date 08/01/20 Plan of Care End Date 10/01/20 Next Visit Focus/Plan Next Note Type Treatment Note Next Visit Plan work on quad and glute strengthening for step ups, work on balance for uneven surfaces & dynamic balance, work on gait mechanics
--- NOTE | 2020-08-10 08:17 | PT.OTN ---
Current Diagnoses Pain in right hip (08/10/20) Pain in left hip (08/10/20) Stiffness of right hip, not elsewhere classified (08/10/20) Stiffness of left hip, not elsewhere classified (08/10/20) Other abnormalities of gait and mobility (08/10/20) Weakness (08/10/20) Presence of right artificial hip joint (08/10/20) Physical Therapy Treatment Note PT-OP-A Visit Information Start: 03/06/20 12:11 Freq: Status: Active Protocol: Document 08/10/20 07:30 [facility] (Rec: 08/10/20 08:17 [facility] [id number]) Out-Patient Physical Therapy Visit Information Visit Information Visit Type Treatment Note Visit Note Visit Start Time 07:31 Visit Stop Time 08:12 Total Visit Minutes 41 Visit Number 14 Number of ECONOMICS ANALYST Visits 0 PT-OP-B Current Condition Start: 03/06/20 12:11 Freq: Status: Active Protocol: Document 06/02/20 11:18 DCW (Rec: 06/02/20 11:38 DC [id number]) Current Condition History of Current Condition Onset Date 02/28/20 Current Complaints Hip pain and stiffness following L SHERIDAN History of Current Condition Pt is a 34 year old female presenting one weeks s/p R SHERIDAN secondary to a long-standing history of back and hip problems due to avascular necrosis. Pt reports her left hip is scheduled for a SHERIDAN in April of this year, but at this time her left leg is so weak and painful, she is afraid it will negatively impact the rehab of her right SHERIDAN. 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 Admits that she has lost most of the muscle mass in her legs from atrophy, due to the fact that she is unable to do much activity at all without severe pain. Pt notes that before her surgery, she was only able to walk ~1.5 blocks, and that was with severe pain. Pt notes that with activity, her hip is a 9/ 10 in pain level, and at rest, this decreases to a 6/10. ADDENDUM 06/02/2020: Pt returns to therapy today following a Left SHERIDAN on 05/09/20. Pt reports she was supposed to start therapy two weeks ago, but was asked to hold off due to a greater trochanter fracture that happened at some point either during or after surgery. Pt walking without a walker for short distances, but uses it for shopping or longer distances. Pt reports she is very sore and fatigued on days following trips to the [employer] story. Notes that it is slowly getting better, but sleep has been horrendous. Pt also notes that the right side feels good, I don't have any complaints about it, and my back is doing much better, I feel like my alignment is much better now. Prior Treatments and Tests R SHERIDAN 02/28/20 L SHERIDAN 05/09/20 Treatment Goals Patient/Caregiver Goals I want to be able to walk without pain. PT-OP-C Subjective Start: 03/06/20 12:11 Freq: Status: Active Protocol: Document 08/10/20 07:30 [facility] (Rec: 08/10/20 08:17 [facility] [id number]) OP-PT Subjective Patient Comments Patient Comments Pt reports some soreness in R buttocks. Unsure if its joint or mm soreness. PT-OP-E Functional Tests Start: 03/06/20 12:11 Freq: Status: Active Protocol: Document 08/01/20 11:18 [facility] (Rec: 08/01/20 12:22 [facility] [id number]) Functional Tests 6 Minute Walk Test Distance 1059ft Device Used none Functional Gait Assessment Score 18/30 PT-OP-F Manual Assessment Start: 03/06/20 12:43 Freq: Status: Active Protocol: Document 06/02/20 11:18 DCW (Rec: 06/02/20 11:38 DC[facility] [id number]) Manual Assessments Soft Tissue Assessment Soft Tissue Mobility Assessment Significantly reduced tone in left QL vs initial evaluation, minimal mechanical scoliosis. PT-OP-G Mobility & Gait Start: 06/02/20 11:38 Freq: Status: Active Protocol: Document 06/02/20 11:18 [facility] (Rec: 06/02/20 11:39 [facility] [id number]) OP Gait Assessment Gait Gait Assistance Required: Independent Distance (Feet) 357 Able to Maintain Weight Bearing Status Yes During Gait Assistive Devices Assistive Device None Gait Deviations General Gait Pattern Ataxic,Lateral Trunk Lean Factors Limiting Gait Function Factors Limiting Gait Function Abnormal Tonal Influences, Decreased Activity Tolerance, Decreased Strength Comments Gait Comments Trendelenberg gait due to left abductor weakness. PT-OP-J Posture/Palpation/Skin Start: 03/06/20 12:43 Freq: Status: Active Protocol: Document 06/02/20 11:18 DC[facility] (Rec: 06/02/20 11:38 DCW [id number]) Posture Evaluation Position Standing Scapula Posture (L) Elevated Weight Distribution Weight Shifted Right,Decreased Wt.Bear on (L) PT-OP-K Range of Motion Start: 03/06/20 12:11 Freq: Status: Active Protocol: Document 08/01/20 11:18 [facility] (Rec: 08/01/20 12:22 [facility] [id number]) Hip Goniometric Range of Motion Hip Right Passive Flexion w/Knee Flexed 106 Abduction 24 Left Passive Flexion w/Knee Flexed 103 Abduction 23 PT-OP-M Strength Start: 03/06/20 12:11 Freq: Status: Active Protocol: Document 08/01/20 11:18 [facility] (Rec: 08/01/20 12:22 [facility] [id number]) Hip Strength Hip Manual Muscle Testing Right Flexion (L2) 4+ Good+ Extension (S1) 3+ Fair+ Abduction 4- Good- Adduction 3+ Fair+ External Rotation 4 Good Internal Rotation 4 Good Comments rotations tested in very small range Left Flexion (L2) 4- Good- Extension (S1) 3 Fair Abduction 3 Fair External Rotation 3+ Fair+ Internal Rotation 3+ Fair+ PT-OP-Q Treatments Start: 03/06/20 12:11 Freq: Status: Active Protocol: Document 08/10/20 07:30 [facility] (Rec: 08/10/20 08:17 [facility] [id number]) Cardio Equipment Recumbent Elliptical (Biodex) Duration (Minutes) 6 Resistance 5 Seat Position 7 Gym Equipment Shuttle Balance 1 Details fwd side WBOS & NBOS Sport Cord fwd walk Exercise Details focus on push off Cord/Resistance green Reps/Duration 12 Therapeutic Exercises Standing Exercises minisquat Standing Exercise Name over chair Side bilateral Reps/Minutes 15 2 Standing Exercise Name hip flexor stretch Side bilateral Comments 30 sec 1 Standing Exercise Name wall posture Reps/Minutes 1 min Gait Training Gait Activity stairs Comments 3. reciprocal up/down 6 in step (13) rail touch for balance for down 2 Description fwd walking w/focus on push off 1 Description wt shifts Comments fwd in mirror progressed to step through PT-OP-T Assessment and Plan Start: 03/06/20 12:11 Freq: Status: Active Protocol: Document 08/10/20 07:30 [facility] (Rec: 08/10/20 08:17 [facility] [id number]) Physical Therapy Assessment Goals Six Impairment Pt amb /c Trendelenberg gait due to abd weakness Short Term Goal (STG) Pt to demonstrate gait with no trendelenberg pattern 70% of the time to show increased abductor strength STG Duration achieved General Adjuster Goal (LTG) Pt will be able to walk on uneven ground and do backwards /sidesteps as needed when in areas with other peopel or animals to dec risk for falls. LTG Duration 10/01/20 Five Short Term Goal (STG) Pt will be able to ascend and descend stairs reciprocally with rail. STG Duration 08/31/20 Nursing Home Goal (LTG) Pt will be able to ascend and descend stairs reciprocally without rail. LTG Duration 10/01/20 Four Impairment Limited hip ROM Nursing Home Goal (LTG) Pt to tolerate passive ROM of 70? flexion and 45? abduction bilaterally 08/01- achieved passive flex, but not abd LTG Duration 10/01/20 Three Impairment Significant bilateral hip weakness Nursing Home Goal (LTG) Pt to demonstrate bilateral hip MMT of at least 3+/5 in all planes 08/01-achieved in most planes- progress goal to at least 4/5 for hip and knee MMT LTG Duration 10/01/20 Two Impairment Gait speed of 2.96 ft/sec during 2 MWT /s AD Short Term Goal (STG) A gait speed of <1.77' can indicate an increased risk of further functional decline. Pt will demonstrate a gait speed >1.77 during a 2 minute walk test using a SPC STG Duration Met General Adjuster Goal (LTG) Pt to complete a 6 MWT without an assistive device and a gait speed <1.77 ft/sec 08/01-2.9 ft/sec without AD LTG Duration 10/01/20 One Impairment FGA Short Term Goal (STG) Pt will be onofre to step over a shoe box without LOB and/or stopping. STG Duration 08/31/20 General Adjuster Goal (LTG) Pt will score at least 25/30 on FMA to show dec risk for falls and improved balance. LTG Duration 10/01/20 Assessment Summary Assessment Pt cont to improve with her gait with cueing and use of mirror. Pt did well with stairs today with less cueing for form. Able to do partial squat with cueing for glutes Physical Therapy Plan Frequency and Duration Frequency of Treatment 2x/Week Duration of Treatment 2 months Plan of Care Start Date 08/01/20 Plan of Care End Date 10/01/20 Next Visit Focus/Plan Next Note Type Treatment Note Next Visit Plan work on quad and glute strengthening for step ups, work on balance for uneven surfaces & dynamic balance, work on gait mechanics
--- NOTE | 2020-08-15 11:17 | PT.OTN ---
Current Diagnoses Pain in right hip (08/15/20) Pain in left hip (08/15/20) Stiffness of right hip, not elsewhere classified (08/15/20) Stiffness of left hip, not elsewhere classified (08/15/20) Other abnormalities of gait and mobility (08/15/20) Weakness (08/15/20) Presence of right artificial hip joint (08/15/20) Physical Therapy Treatment Note PT-OP-A Visit Information Start: 03/06/20 12:11 Freq: Status: Active Protocol: Document 08/15/20 10:30 [facility] (Rec: 08/15/20 11:16 [facility] [id number]) Out-Patient Physical Therapy Visit Information Visit Information Visit Type Treatment Note Visit Note Visit Start Time 10:30 Visit Stop Time 11:15 Total Visit Minutes 45 Visit Number 15 Number of PROCESS CONSULTANT Visits 0 PT-OP-B Current Condition Start: 03/06/20 12:11 Freq: Status: Active Protocol: Document 06/02/20 11:18 DC[facility] (Rec: 06/02/20 11:38 DC[facility] [id number]) Current Condition History of Current Condition Onset Date 02/28/20 Current Complaints Hip pain and stiffness following L SHERIDAN History of Current Condition Pt is a 34 year old female presenting one weeks s/p R SHERIDAN secondary to a long-standing history of back and hip problems due to avascular necrosis. Pt reports her left hip is scheduled for a SHERIDAN in April of this year, but at this time her left leg is so weak and painful, she is afraid it will negatively impact the rehab of her right SHERIDAN. 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 Admits that she has lost most of the muscle mass in her legs from atrophy, due to the fact that she is unable to do much activity at all without severe pain. Pt notes that before her surgery, she was only able to walk ~1.5 blocks, and that was with severe pain. Pt notes that with activity, her hip is a 9/ 10 in pain level, and at rest, this decreases to a 6/10. ADDENDUM 06/02/2020: Pt returns to therapy today following a Left SHERIDAN on 05/09/20. Pt reports she was supposed to start therapy two weeks ago, but was asked to hold off due to a greater trochanter fracture that happened at some point either during or after surgery. Pt walking without a walker for short distances, but uses it for shopping or longer distances. Pt reports she is very sore and fatigued on days following trips to the [employer] story. Notes that it is slowly getting better, but sleep has been horrendous. Pt also notes that the right side feels good, I don't have any complaints about it, and my back is doing much better, I feel like my alignment is much better now. Prior Treatments and Tests R SHERIDAN 02/28/20 L SHERIDAN 05/09/20 Treatment Goals Patient/Caregiver Goals I want to be able to walk without pain. PT-OP-C Subjective Start: 03/06/20 12:11 Freq: Status: Active Protocol: Document 08/15/20 10:30 DC[facility] (Rec: 08/15/20 11:16 DC[facility] [id number]) OP-PT Subjective Patient Comments Patient Comments Pt reporting continued muscle soreness in glutes. PT-OP-E Functional Tests Start: 03/06/20 12:11 Freq: Status: Active Protocol: Document 08/01/20 11:18 [facility] (Rec: 08/01/20 12:22 [facility] [id number]) Functional Tests 6 Minute Walk Test Distance 1059ft Device Used none Functional Gait Assessment Score PT-OP-F Manual Assessment Start: 03/06/20 12:43 Freq: Status: Active Protocol: Document 06/02/20 11:18 DCW (Rec: 06/02/20 11:38 DC[facility] [id number]) Manual Assessments Soft Tissue Assessment Soft Tissue Mobility Assessment Significantly reduced tone in left QL vs initial evaluation, minimal mechanical scoliosis. PT-OP-G Mobility & Gait Start: 06/02/20 11:38 Freq: Status: Active Protocol: Document 06/02/20 11:18 [facility] (Rec: 06/02/20 11:39 DCW [id number]) OP Gait Assessment Gait Gait Assistance Required: Independent Distance (Feet) 357 Able to Maintain Weight Bearing Status Yes During Gait Assistive Devices Assistive Device None Gait Deviations General Gait Pattern Ataxic,Lateral Trunk Lean Factors Limiting Gait Function Factors Limiting Gait Function Abnormal Tonal Influences, Decreased Activity Tolerance, Decreased Strength Comments Gait Comments Trendelenberg gait due to left abductor weakness. PT-OP-J Posture/Palpation/Skin Start: 03/06/20 12:43 Freq: Status: Active Protocol: Document 06/02/20 11:18 [facility] (Rec: 06/02/20 11:38 DCW [id number]) Posture Evaluation Position Standing Scapula Posture (L) Elevated Weight Distribution Weight Shifted Right,Decreased Wt.Bear on (L) PT-OP-K Range of Motion Start: 03/06/20 12:11 Freq: Status: Active Protocol: Document 08/01/20 11:18 [facility] (Rec: 08/01/20 12:22 [facility] [id number]) Hip Goniometric Range of Motion Hip Right Passive Flexion w/Knee Flexed 106 Abduction 24 Left Passive Flexion w/Knee Flexed 103 Abduction 23 PT-OP-M Strength Start: 03/06/20 12:11 Freq: Status: Active Protocol: Document 08/01/20 11:18 [facility] (Rec: 08/01/20 12:22 [facility] [id number]) Hip Strength Hip Manual Muscle Testing Right Flexion (L2) 4+ Good+ Extension (S1) 3+ Fair+ Abduction 4- Good- Adduction 3+ Fair+ External Rotation 4 Good Internal Rotation 4 Good Comments rotations tested in very small range Left Flexion (L2) 4- Good- Extension (S1) 3 Fair Abduction 3 Fair External Rotation 3+ Fair+ Internal Rotation 3+ Fair+ PT-OP-Q Treatments Start: 03/06/20 12:11 Freq: Status: Active Protocol: Document 08/15/20 10:30 DCW (Rec: 08/15/20 11:16 DCW [id number]) Cardio Equipment Recumbent Elliptical (Biodex) Duration (Minutes) 6 Resistance 5 Seat Position 7 Gym Equipment Shuttle Balance 1 Details fwd side WBOS & NBOS Sport Cord fwd walk Exercise Details focus on push off/step up Cord/Resistance green Reps/Duration 12 Comments 6 step Therapeutic Exercises Standing Exercises 3 Standing Exercise Name hip abduction Side bilateral step up Standing Exercise Name Step up/down Side bilateral Equipment Used 6 step Gait Training Gait Activity 2 Description fwd walking w/focus on push off 1 Description wt shifts Comments fwd in mirror progressed to step through Neuro Re-Education Treatment Balance Activities 1 Details SLS PT-OP-T Assessment and Plan Start: 03/06/20 12:11 Freq: Status: Active Protocol: Document 08/15/20 10:30 [facility] (Rec: 08/15/20 11:16 [facility] [id number]) Physical Therapy Assessment Goals Six Impairment Pt amb /c Trendelenberg gait due to abd weakness Short Term Goal (STG) Pt to demonstrate gait with no trendelenberg pattern 70% of the time to show increased abductor strength STG Duration achieved Power Equipment Technology Instructor Goal (LTG) Pt will be able to walk on uneven ground and do backwards /sidesteps as needed when in areas with other peopel or animals to dec risk for falls. LTG Duration 10/01/20 Five Short Term Goal (STG) Pt will be able to ascend and descend stairs reciprocally with rail. STG Duration 08/31/20 Retirement Goal (LTG) Pt will be able to ascend and descend stairs reciprocally without rail. LTG Duration 10/01/20 Four Impairment Limited hip ROM Power Equipment Technology Instructor Goal (LTG) Pt to tolerate passive ROM of 70? flexion and 45? abduction bilaterally 08/01- achieved passive flex, but not abd LTG Duration 10/01/20 Three Impairment Significant bilateral hip weakness Retirement Goal (LTG) Pt to demonstrate bilateral hip MMT of at least 3+/5 in all planes 08/01-achieved in most planes- progress goal to at least 4/5 for hip and knee MMT LTG Duration 10/01/20 Two Impairment Gait speed of 2.96 ft/sec during 2 MWT /s AD Short Term Goal (STG) A gait speed of <1.77' can indicate an increased risk of further functional decline. Pt will demonstrate a gait speed >1.77 during a 2 minute walk test using a SPC STG Duration Met Retirement Goal (LTG) Pt to complete a 6 MWT without an assistive device and a gait speed <1.77 ft/sec 08/01-2.9 ft/sec without AD LTG Duration 10/01/20 One Impairment FGA 18/30 Short Term Goal (STG) Pt will be onofre to step over a shoe box without LOB and/or stopping. STG Duration 08/31/20 Retirement Goal (LTG) Pt will score at least 25/30 on FMA to show dec risk for falls and improved balance. LTG Duration 10/01/20 Assessment Summary Assessment Pt doing very well with gait today, showing improvement with push off and glute med contraction for stability. Physical Therapy Plan Frequency and Duration Frequency of Treatment 2x/Week Duration of Treatment 2 months Plan of Care Start Date 08/01/20 Plan of Care End Date 10/01/20 Next Visit Focus/Plan Next Note Type Treatment Note Next Visit Plan work on quad and glute strengthening for step ups, work on balance for uneven surfaces & dynamic balance, work on gait mechanics
--- NOTE | 2020-08-23 08:59 | PT.OTN ---
Current Diagnoses Pain in right hip (08/23/20) Pain in left hip (08/23/20) Stiffness of right hip, not elsewhere classified (08/23/20) Stiffness of left hip, not elsewhere classified (08/23/20) Other abnormalities of gait and mobility (08/23/20) Weakness (08/23/20) Presence of right artificial hip joint (08/23/20) Physical Therapy Treatment Note PT-OP-A Visit Information Start: 03/06/20 12:11 Freq: Status: Active Protocol: Document 08/23/20 07:56 [facility] (Rec: 08/23/20 08:59 [facility] [id number]) Out-Patient Physical Therapy Visit Information Visit Information Visit Type Treatment Note Visit Note Visit Start Time 08:12 Visit Stop Time 08:57 Total Visit Minutes 45 Visit Number 16 Number of PRINT ROOM WORKER Visits 0 PT-OP-B Current Condition Start: 03/06/20 12:11 Freq: Status: Active Protocol: Document 06/02/20 11:18 DCW (Rec: 06/02/20 11:38 DCW [id number]) Current Condition History of Current Condition Onset Date 02/28/20 Current Complaints Hip pain and stiffness following L SHERIDAN History of Current Condition Pt is a 34 year old female presenting one weeks s/p R SHERIDAN secondary to a long-standing history of back and hip problems due to avascular necrosis. Pt reports her left hip is scheduled for a SHERIDAN in April of this year, but at this time her left leg is so weak and painful, she is afraid it will negatively impact the rehab of her right SHERIDAN. 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 Admits that she has lost most of the muscle mass in her legs from atrophy, due to the fact that she is unable to do much activity at all without severe pain. Pt notes that before her surgery, she was only able to walk ~1.5 blocks, and that was with severe pain. Pt notes that with activity, her hip is a 9/ 10 in pain level, and at rest, this decreases to a 6/10. ADDENDUM 06/02/2020: Pt returns to therapy today following a Left SHERIDAN on 05/09/20. Pt reports she was supposed to start therapy two weeks ago, but was asked to hold off due to a greater trochanter fracture that happened at some point either during or after surgery. Pt walking without a walker for short distances, but uses it for shopping or longer distances. Pt reports she is very sore and fatigued on days following trips to the [employer] story. Notes that it is slowly getting better, but sleep has been horrendous. Pt also notes that the right side feels good, I don't have any complaints about it, and my back is doing much better, I feel like my alignment is much better now. Prior Treatments and Tests R SHERIDAN 02/28/20 L SHERIDAN 05/09/20 Treatment Goals Patient/Caregiver Goals I want to be able to walk without pain. PT-OP-C Subjective Start: 03/06/20 12:11 Freq: Status: Active Protocol: Document 08/23/20 07:56 LR (Rec: 08/23/20 08:59 LR [id number]) OP-PT Subjective Patient Comments Patient Comments Pt reports she feels like she twists a lot via her pelvis when walking. She has not gone for formal walks but she has been doing a lot of errands. PT-OP-E Functional Tests Start: 03/06/20 12:11 Freq: Status: Active Protocol: Document 08/01/20 11:18 LR (Rec: 08/01/20 12:22 [facility] [id number]) Functional Tests 6 Minute Walk Test Distance 1059ft Device Used none Functional Gait Assessment Score 18/30 PT-OP-F Manual Assessment Start: 03/06/20 12:43 Freq: Status: Active Protocol: Document 06/02/20 11:18 DCW (Rec: 06/02/20 11:38 DCW [id number]) Manual Assessments Soft Tissue Assessment Soft Tissue Mobility Assessment Significantly reduced tone in left QL vs initial evaluation, minimal mechanical scoliosis. PT-OP-G Mobility & Gait Start: 06/02/20 11:38 Freq: Status: Active Protocol: Document 06/02/20 11:18 DCW (Rec: 06/02/20 11:39 DCW [id number]) OP Gait Assessment Gait Gait Assistance Required: Independent Distance (Feet) 357 Able to Maintain Weight Bearing Status Yes During Gait Assistive Devices Assistive Device None Gait Deviations General Gait Pattern Ataxic,Lateral Trunk Lean Factors Limiting Gait Function Factors Limiting Gait Function Abnormal Tonal Influences, Decreased Activity Tolerance, Decreased Strength Comments Gait Comments Trendelenberg gait due to left abductor weakness. PT-OP-J Posture/Palpation/Skin Start: 03/06/20 12:43 Freq: Status: Active Protocol: Document 06/02/20 11:18 DCW (Rec: 06/02/20 11:38 DCW [id number]) Posture Evaluation Position Standing Scapula Posture (L) Elevated Weight Distribution Weight Shifted Right,Decreased Wt.Bear on (L) PT-OP-K Range of Motion Start: 03/06/20 12:11 Freq: Status: Active Protocol: Document 08/01/20 11:18 [facility] (Rec: 08/01/20 12:22 [facility] [id number]) Hip Goniometric Range of Motion Hip Right Passive Flexion w/Knee Flexed 106 Abduction 24 Left Passive Flexion w/Knee Flexed 103 Abduction 23 PT-OP-M Strength Start: 03/06/20 12:11 Freq: Status: Active Protocol: Document 08/01/20 11:18 LR (Rec: 08/01/20 12:22 [facility] [id number]) Hip Strength Hip Manual Muscle Testing Right Flexion (L2) 4+ Good+ Extension (S1) 3+ Fair+ Abduction 4- Good- Adduction 3+ Fair+ External Rotation 4 Good Internal Rotation 4 Good Comments rotations tested in very small range Left Flexion (L2) 4- Good- Extension (S1) 3 Fair Abduction 3 Fair External Rotation 3+ Fair+ Internal Rotation 3+ Fair+ PT-OP-Q Treatments Start: 03/06/20 12:11 Freq: Status: Active Protocol: Document 08/23/20 07:56 [facility] (Rec: 08/23/20 08:59 [facility] [id number]) Cardio Equipment Recumbent Elliptical (Biodex) Duration (Minutes) 6 Resistance 5 Seat Position 7 Gym Equipment Shuttle Recovery Unilateral Squats Resistance 50# R, 25# L Reps/Time 15 Bilateral Squats Resistance 75# Reps/Time 20 Shuttle Balance 1 Comments fwd & side: WBOS & NBOS & wt shifts fwd: staggered stance Sport Cord step ups Cord/Resistance green Reps/Duration 12 B Comments 6 in step fwd walk Exercise Details focus on push off Cord/Resistance green Reps/Duration 15 Therapeutic Exercises Standing Exercises hip hike Standing Exercise Name hip hike 4 in step Side bilateral Reps/Minutes 15 Comments [address] the way to ground- small range 3 Standing Exercise Name hip abduction Side bilateral Equipment Used L1 Reps/Minutes 15 step up Standing Exercise Name w/alt march Side bilateral Equipment Used 6 in Reps/Minutes 12 ea posture Standing Exercise Name wall posture Side bilateral Reps/Minutes 1 min hold 2 Standing Exercise Name hip flexor stretch Side bilateral Comments 30 sec 1 Standing Exercise Name TKE Resistance Lvl 3 Reps/Minutes 30 PT-OP-T Assessment and Plan Start: 03/06/20 12:11 Freq: Status: Active Protocol: Document 08/23/20 07:56 [facility] (Rec: 08/23/20 08:59 [facility] [id number]) Physical Therapy Assessment Goals Six Impairment Pt amb /c Trendelenberg gait due to abd weakness Short Term Goal (STG) Pt to demonstrate gait with no trendelenberg pattern 70% of the time to show increased abductor strength STG Duration achieved Studio Assistant Goal (LTG) Pt will be able to walk on uneven ground and do backwards /sidesteps as needed when in areas with other peopel or animals to dec risk for falls. LTG Duration 10/01/20 Five Short Term Goal (STG) Pt will be able to ascend and descend stairs reciprocally with rail. STG Duration 08/31/20 Long-Term Goal (LTG) Pt will be able to ascend and descend stairs reciprocally without rail. LTG Duration 10/01/20 Four Impairment Limited hip ROM Long-Term Goal (LTG) Pt to tolerate passive ROM of 70? flexion and 45? abduction bilaterally 08/01- achieved passive flex, but not abd LTG Duration 10/01/20 Three Impairment Significant bilateral hip weakness Studio Assistant Goal (LTG) Pt to demonstrate bilateral hip MMT of at least 3+/5 in all planes 08/01-achieved in most planes- progress goal to at least 4/5 for hip and knee MMT LTG Duration 10/01/20 Two Impairment Gait speed of 2.96 ft/sec during 2 MWT /s AD Short Term Goal (STG) A gait speed of <1.77' can indicate an increased risk of further functional decline. Pt will demonstrate a gait speed >1.77 during a 2 minute walk test using a SPC STG Duration Met Studio Assistant Goal (LTG) Pt to complete a 6 MWT without an assistive device and a gait speed <1.77 ft/sec 08/01-2.9 ft/sec without AD LTG Duration 10/01/20 One Impairment FGA 18/30 Short Term Goal (STG) Pt will be onofre to step over a shoe box without LOB and/or stopping. STG Duration 08/31/20 Long-Term Goal (LTG) Pt will score at least 25/30 on FMA to show dec risk for falls and improved balance. LTG Duration 10/01/20 Assessment Summary Assessment Pt did well with balance board today and may be able to do harder challenge next time. She is improving with step up ability and gait ability when focusing on mechanics. Physical Therapy Plan Frequency and Duration Frequency of Treatment 2x/Week Duration of Treatment 2 months Plan of Care Start Date 08/01/20 Plan of Care End Date 10/01/20 Next Visit Focus/Plan Next Note Type Treatment Note Next Visit Plan work on quad and glute strengthening for step ups, work on balance for uneven surfaces & dynamic balance, work on gait mechanics
--- NOTE | 2020-08-25 14:37 | PT.OTN ---
Current Diagnoses Pain in right hip (08/25/20) Pain in left hip (08/25/20) Stiffness of right hip, not elsewhere classified (08/25/20) Stiffness of left hip, not elsewhere classified (08/25/20) Other abnormalities of gait and mobility (08/25/20) Weakness (08/25/20) Presence of right artificial hip joint (08/25/20) Physical Therapy Treatment Note PT-OP-A Visit Information Start: 03/06/20 12:11 Freq: Status: Active Protocol: Document 08/25/20 13:45 DCW (Rec: 08/25/20 14:37 DCW [id number]) Out-Patient Physical Therapy Visit Information Visit Information Visit Type Treatment Note Visit Note Visit Start Time 13:45 Visit Stop Time 14:30 Total Visit Minutes 45 Visit Number 17 Number of AUTOMOTIVE VEHICLE INSPECTOR Visits 0 PT-OP-B Current Condition Start: 03/06/20 12:11 Freq: Status: Active Protocol: Document 06/02/20 11:18 DCW (Rec: 06/02/20 11:38 DCW [id number]) Current Condition History of Current Condition Onset Date 02/28/20 Current Complaints Hip pain and stiffness following L SHERIDAN History of Current Condition Pt is a 34 year old female presenting one weeks s/p R SHERIDAN secondary to a long-standing history of back and hip problems due to avascular necrosis. Pt reports her left hip is scheduled for a SHERIDAN in April of this year, but at this time her left leg is so weak and painful, she is afraid it will negatively impact the rehab of her right SHERIDAN. 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 Admits that she has lost most of the muscle mass in her legs from atrophy, due to the fact that she is unable to do much activity at all without severe pain. Pt notes that before her surgery, she was only able to walk ~1.5 blocks, and that was with severe pain. Pt notes that with activity, her hip is a 9/ 10 in pain level, and at rest, this decreases to a 6/10. ADDENDUM 06/02/2020: Pt returns to therapy today following a Left SHERIDAN on 05/09/20. Pt reports she was supposed to start therapy two weeks ago, but was asked to hold off due to a greater trochanter fracture that happened at some point either during or after surgery. Pt walking without a walker for short distances, but uses it for shopping or longer distances. Pt reports she is very sore and fatigued on days following trips to the [employer] story. Notes that it is slowly getting better, but sleep has been horrendous. Pt also notes that the right side feels good, I don't have any complaints about it, and my back is doing much better, I feel like my alignment is much better now. Prior Treatments and Tests R SHERIDAN 02/28/20 L SHERIDAN 05/09/20 Treatment Goals Patient/Caregiver Goals I want to be able to walk without pain. PT-OP-C Subjective Start: 03/06/20 12:11 Freq: Status: Active Protocol: Document 08/25/20 13:45 DCW (Rec: 08/25/20 14:37 DCW [id number]) OP-PT Subjective Patient Comments Patient Comments Pt reports no more real structural pain in her hips, feels more like I just need to work on strengthening and stabilizing my glutes. PT-OP-E Functional Tests Start: 03/06/20 12:11 Freq: Status: Active Protocol: Document 08/01/20 11:18 LR (Rec: 08/01/20 12:22 LR [id number]) Functional Tests 6 Minute Walk Test Distance 1059ft Device Used none Functional Gait Assessment Score 18/30 PT-OP-F Manual Assessment Start: 03/06/20 12:43 Freq: Status: Active Protocol: Document 06/02/20 11:18 DCW (Rec: 06/02/20 11:38 DCW [id number]) Manual Assessments Soft Tissue Assessment Soft Tissue Mobility Assessment Significantly reduced tone in left QL vs initial evaluation, minimal mechanical scoliosis. PT-OP-G Mobility & Gait Start: 06/02/20 11:38 Freq: Status: Active Protocol: Document 06/02/20 11:18 DCW (Rec: 06/02/20 11:39 DCW [id number]) OP Gait Assessment Gait Gait Assistance Required: Independent Distance (Feet) 357 Able to Maintain Weight Bearing Status Yes During Gait Assistive Devices Assistive Device None Gait Deviations General Gait Pattern Ataxic,Lateral Trunk Lean Factors Limiting Gait Function Factors Limiting Gait Function Abnormal Tonal Influences, Decreased Activity Tolerance, Decreased Strength Comments Gait Comments Trendelenberg gait due to left abductor weakness. PT-OP-J Posture/Palpation/Skin Start: 03/06/20 12:43 Freq: Status: Active Protocol: Document 06/02/20 11:18 DCW (Rec: 06/02/20 11:38 DCW [id number]) Posture Evaluation Position Standing Scapula Posture (L) Elevated Weight Distribution Weight Shifted Right,Decreased Wt.Bear on (L) PT-OP-K Range of Motion Start: 03/06/20 12:11 Freq: Status: Active Protocol: Document 08/01/20 11:18 [facility] (Rec: 08/01/20 12:22 LR [id number]) Hip Goniometric Range of Motion Hip Right Passive Flexion w/Knee Flexed 106 Abduction 24 Left Passive Flexion w/Knee Flexed 103 Abduction 23 PT-OP-M Strength Start: 03/06/20 12:11 Freq: Status: Active Protocol: Document 08/01/20 11:18 LR (Rec: 08/01/20 12:22 [facility] [id number]) Hip Strength Hip Manual Muscle Testing Right Flexion (L2) 4+ Good+ Extension (S1) 3+ Fair+ Abduction 4- Good- Adduction 3+ Fair+ External Rotation 4 Good Internal Rotation 4 Good Comments rotations tested in very small range Left Flexion (L2) 4- Good- Extension (S1) 3 Fair Abduction 3 Fair External Rotation 3+ Fair+ Internal Rotation 3+ Fair+ PT-OP-Q Treatments Start: 03/06/20 12:11 Freq: Status: Active Protocol: Document 08/25/20 13:45 DCW (Rec: 08/25/20 14:37 DCW [id number]) Cardio Equipment Recumbent Elliptical (Biodex) Duration (Minutes) 6 Resistance 5 Seat Position 8 Gym Equipment Sport Cord step ups Cord/Resistance green Reps/Duration 12 B Comments 6 in step fwd walk Exercise Details focus on push off Cord/Resistance green Reps/Duration 15 Therapeutic Exercises Supine Exercises 1 Supine Exercise Name Hamstring stretch Side bilateral Comments Manual stretch Standing Exercises 5 Standing Exercise Name Hamstring stretch Side bilateral Equipment Used steps 4 Standing Exercise Name Gastroc stretch Side bilateral Equipment Used IGGY 3 Standing Exercise Name hip abduction, hip extension Side bilateral Equipment Used L3 Reps/Minutes 15 step up Standing Exercise Name w/alt march Side bilateral Equipment Used 6 in Reps/Minutes 12 ea PT-OP-T Assessment and Plan Start: 03/06/20 12:11 Freq: Status: Active Protocol: Document 08/25/20 13:45 DCW (Rec: 08/25/20 14:37 DCW [id number]) Physical Therapy Assessment Goals Six Impairment Pt amb /c Trendelenberg gait due to abd weakness Short Term Goal (STG) Pt to demonstrate gait with no trendelenberg pattern 70% of the time to show increased abductor strength STG Duration achieved Pet Trainer Goal (LTG) Pt will be able to walk on uneven ground and do backwards /sidesteps as needed when in areas with other peopel or animals to dec risk for falls. LTG Duration 10/01/20 Five Short Term Goal (STG) Pt will be able to ascend and descend stairs reciprocally with rail. STG Duration 08/31/20 Retirement Goal (LTG) Pt will be able to ascend and descend stairs reciprocally without rail. LTG Duration 10/01/20 Four Impairment Limited hip ROM Pet Trainer Goal (LTG) Pt to tolerate passive ROM of 70? flexion and 45? abduction bilaterally 08/01- achieved passive flex, but not abd LTG Duration 10/01/20 Three Impairment Significant bilateral hip weakness Retirement Goal (LTG) Pt to demonstrate bilateral hip MMT of at least 3+/5 in all planes 08/01-achieved in most planes- progress goal to at least 4/5 for hip and knee MMT LTG Duration 10/01/20 Two Impairment Gait speed of 2.96 ft/sec during 2 MWT /s AD Short Term Goal (STG) A gait speed of <1.77' can indicate an increased risk of further functional decline. Pt will demonstrate a gait speed >1.77 during a 2 minute walk test using a SPC STG Duration Met Pet Trainer Goal (LTG) Pt to complete a 6 MWT without an assistive device and a gait speed <1.77 ft/sec 08/01-2.9 ft/sec without AD LTG Duration 10/01/20 One Impairment FGA Short Term Goal (STG) Pt will be onofre to step over a shoe box without LOB and/or stopping. STG Duration 08/31/20 Pet Trainer Goal (LTG) Pt will score at least 25/30 on FMA to show dec risk for falls and improved balance. LTG Duration 10/01/20 Assessment Summary Assessment Worked with pt on stretching out calf and hamstrings today, which seem to be a least partially responsible for her complaints of abnormal heel lift during gait due to tightness. Physical Therapy Plan Frequency and Duration Frequency of Treatment 2x/Week Duration of Treatment 2 months Plan of Care Start Date 08/01/20 Plan of Care End Date 10/01/20 Next Visit Focus/Plan Next Note Type Treatment Note Next Visit Plan work on quad and glute strengthening for step ups, work on balance for uneven surfaces & dynamic balance, work on gait mechanics
--- NOTE | 2020-08-28 13:43 | PT.OTN ---
Current Diagnoses Pain in right hip (08/28/20) Pain in left hip (08/28/20) Stiffness of right hip, not elsewhere classified (08/28/20) Stiffness of left hip, not elsewhere classified (08/28/20) Other abnormalities of gait and mobility (08/28/20) Weakness (08/28/20) Presence of right artificial hip joint (08/28/20) Physical Therapy Treatment Note PT-OP-A Visit Information Start: 03/06/20 12:11 Freq: Status: Active Protocol: Document 08/28/20 13:01 [facility] (Rec: 08/28/20 13:43 [facility] [id number]) Out-Patient Physical Therapy Visit Information Visit Information Visit Type Treatment Note Visit Note Visit Start Time 13:00 Visit Stop Time 13:42 Total Visit Minutes 42 Visit Number 18 Number of TOW BAR DRIVER Visits 0 PT-OP-B Current Condition Start: 03/06/20 12:11 Freq: Status: Active Protocol: Document 06/02/20 11:18 DCW (Rec: 06/02/20 11:38 DC [id number]) Current Condition History of Current Condition Onset Date 02/28/20 Current Complaints Hip pain and stiffness following L SHERIDAN History of Current Condition Pt is a 34 year old female presenting one weeks s/p R SHERIDAN secondary to a long-standing history of back and hip problems due to avascular necrosis. Pt reports her left hip is scheduled for a SHERIDAN in April of this year, but at this time her left leg is so weak and painful, she is afraid it will negatively impact the rehab of her right SHERIDAN. 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 Admits that she has lost most of the muscle mass in her legs from atrophy, due to the fact that she is unable to do much activity at all without severe pain. Pt notes that before her surgery, she was only able to walk ~1.5 blocks, and that was with severe pain. Pt notes that with activity, her hip is a 9/ 10 in pain level, and at rest, this decreases to a 6/10. ADDENDUM 06/02/2020: Pt returns to therapy today following a Left SHERIDAN on 05/09/20. Pt reports she was supposed to start therapy two weeks ago, but was asked to hold off due to a greater trochanter fracture that happened at some point either during or after surgery. Pt walking without a walker for short distances, but uses it for shopping or longer distances. Pt reports she is very sore and fatigued on days following trips to the [employer] story. Notes that it is slowly getting better, but sleep has been horrendous. Pt also notes that the right side feels good, I don't have any complaints about it, and my back is doing much better, I feel like my alignment is much better now. Prior Treatments and Tests R SHERIDAN 02/28/20 L SHERIDAN 05/09/20 Treatment Goals Patient/Caregiver Goals I want to be able to walk without pain. PT-OP-C Subjective Start: 03/06/20 12:11 Freq: Status: Active Protocol: Document 08/28/20 13:01 [facility] (Rec: 08/28/20 13:43 [facility] [id number]) OP-PT Subjective Patient Comments Patient Comments Pt reports some small walks. SHe wore the shoes that she would typically wear today ( unsupported tennis like shoes) PT-OP-E Functional Tests Start: 03/06/20 12:11 Freq: Status: Active Protocol: Document 08/01/20 11:18 [facility] (Rec: 08/01/20 12:22 [facility] [id number]) Functional Tests 6 Minute Walk Test Distance 1059ft Device Used none Functional Gait Assessment Score 18/30 PT-OP-F Manual Assessment Start: 03/06/20 12:43 Freq: Status: Active Protocol: Document 06/02/20 11:18 DCW (Rec: 06/02/20 11:38 DCW [id number]) Manual Assessments Soft Tissue Assessment Soft Tissue Mobility Assessment Significantly reduced tone in left QL vs initial evaluation, minimal mechanical scoliosis. PT-OP-G Mobility & Gait Start: 06/02/20 11:38 Freq: Status: Active Protocol: Document 06/02/20 11:18 DCW (Rec: 06/02/20 11:39 DCW [id number]) OP Gait Assessment Gait Gait Assistance Required: Independent Distance (Feet) 357 Able to Maintain Weight Bearing Status Yes During Gait Assistive Devices Assistive Device None Gait Deviations General Gait Pattern Ataxic,Lateral Trunk Lean Factors Limiting Gait Function Factors Limiting Gait Function Abnormal Tonal Influences, Decreased Activity Tolerance, Decreased Strength Comments Gait Comments Trendelenberg gait due to left abductor weakness. PT-OP-J Posture/Palpation/Skin Start: 03/06/20 12:43 Freq: Status: Active Protocol: Document 06/02/20 11:18 DCW (Rec: 06/02/20 11:38 DCW [id number]) Posture Evaluation Position Standing Scapula Posture (L) Elevated Weight Distribution Weight Shifted Right,Decreased Wt.Bear on (L) PT-OP-K Range of Motion Start: 03/06/20 12:11 Freq: Status: Active Protocol: Document 08/01/20 11:18 [facility] (Rec: 08/01/20 12:22 [facility] [id number]) Hip Goniometric Range of Motion Hip Right Passive Flexion w/Knee Flexed 106 Abduction 24 Left Passive Flexion w/Knee Flexed 103 Abduction 23 PT-OP-M Strength Start: 03/06/20 12:11 Freq: Status: Active Protocol: Document 08/01/20 11:18 [facility] (Rec: 08/01/20 12:22 [facility] [id number]) Hip Strength Hip Manual Muscle Testing Right Flexion (L2) 4+ Good+ Extension (S1) 3+ Fair+ Abduction 4- Good- Adduction 3+ Fair+ External Rotation 4 Good Internal Rotation 4 Good Comments rotations tested in very small range Left Flexion (L2) 4- Good- Extension (S1) 3 Fair Abduction 3 Fair External Rotation 3+ Fair+ Internal Rotation 3+ Fair+ PT-OP-Q Treatments Start: 03/06/20 12:11 Freq: Status: Active Protocol: Document 08/28/20 13:01 [facility] (Rec: 08/28/20 13:43 [facility] [id number]) Cardio Equipment Recumbent Elliptical (Biodex) Duration (Minutes) 6 Resistance 7 Seat Position 8 Gym Equipment Shuttle Recovery Bilateral Squats Resistance 87# Reps/Time 20 Shuttle Balance 1 Reps/Duration head turns Comments fwd & side: WBOS & NBOS & wt shifts fwd: staggered stance Sport Cord step ups Cord/Resistance green Reps/Duration 12 B Comments 6 in step fwd walk Exercise Details focus on push off Cord/Resistance green Reps/Duration 15 Therapeutic Exercises Standing Exercises 5 Standing Exercise Name Hamstring stretch Side bilateral Equipment Used steps Reps/Minutes 30 sec ea 4 Standing Exercise Name Gastroc stretch Side bilateral Equipment Used IGGY Reps/Minutes 30 sec hip hike Standing Exercise Name hip hike 4 in step Side bilateral Reps/Minutes 15 Comments [address] the way to ground- small range 3 Standing Exercise Name hip abduction, hip extension Side bilateral Equipment Used L2 Reps/Minutes 15 step up Standing Exercise Name w/alt march Side bilateral Equipment Used 8 in Reps/Minutes 2 sets of 6 2 Standing Exercise Name hip flexor stretch Side bilateral Comments 30 sec 1 Standing Exercise Name heel raise Side bilateral Reps/Minutes 30 PT-OP-T Assessment and Plan Start: 03/06/20 12:11 Freq: Status: Active Protocol: Document 08/28/20 13:01 [facility] (Rec: 08/28/20 13:43 [facility] [id number]) Physical Therapy Assessment Goals Six Impairment Pt amb /c Trendelenberg gait due to abd weakness Short Term Goal (STG) Pt to demonstrate gait with no trendelenberg pattern 70% of the time to show increased abductor strength STG Duration achieved Drug Coordinator Goal (LTG) Pt will be able to walk on uneven ground and do backwards /sidesteps as needed when in areas with other peopel or animals to dec risk for falls. LTG Duration 10/01/20 Five Short Term Goal (STG) Pt will be able to ascend and descend stairs reciprocally with rail. STG Duration 08/31/20 Prison Goal (LTG) Pt will be able to ascend and descend stairs reciprocally without rail. LTG Duration 10/01/20 Four Impairment Limited hip ROM Prison Goal (LTG) Pt to tolerate passive ROM of 70? flexion and 45? abduction bilaterally 08/01- achieved passive flex, but not abd LTG Duration 10/01/20 Three Impairment Significant bilateral hip weakness Prison Goal (LTG) Pt to demonstrate bilateral hip MMT of at least 3+/5 in all planes 08/01-achieved in most planes- progress goal to at least 4/5 for hip and knee MMT LTG Duration 10/01/20 Two Impairment Gait speed of 2.96 ft/sec during 2 MWT /s AD Short Term Goal (STG) A gait speed of <1.77' can indicate an increased risk of further functional decline. Pt will demonstrate a gait speed >1.77 during a 2 minute walk test using a SPC STG Duration Met Drug Coordinator Goal (LTG) Pt to complete a 6 MWT without an assistive device and a gait speed <1.77 ft/sec 08/01-2.9 ft/sec without AD LTG Duration 10/01/20 One Impairment FGA 18/30 Short Term Goal (STG) Pt will be onofre to step over a shoe box without LOB and/or stopping. STG Duration 08/31/20 Drug Coordinator Goal (LTG) Pt will score at least 25/30 on FMA to show dec risk for falls and improved balance. LTG Duration 10/01/20 Assessment Summary Assessment Pt reuqired cueing for posture for all exercises & for avoiding hip rotation. Pt is starting to recognize when she is doing improper patterns and starting to self correct Physical Therapy Plan Frequency and Duration Frequency of Treatment 2x/Week Duration of Treatment 2 months Plan of Care Start Date 08/01/20 Plan of Care End Date 10/01/20 Next Visit Focus/Plan Next Note Type Treatment Note Next Visit Plan work on quad and glute strengthening for step ups, work on balance for uneven surfaces & dynamic balance, work on gait mechanics
--- NOTE | 2020-09-06 08:59 | PT.OTN ---
Current Diagnoses Pain in right hip (09/06/20) Pain in left hip (09/06/20) Stiffness of right hip, not elsewhere classified (09/06/20) Stiffness of left hip, not elsewhere classified (09/06/20) Other abnormalities of gait and mobility (09/06/20) Weakness (09/06/20) Presence of right artificial hip joint (09/06/20) Physical Therapy Treatment Note PT-OP-A Visit Information Start: 03/06/20 12:11 Freq: Status: Active Protocol: Document 09/06/20 08:15 [facility] (Rec: 09/06/20 08:59 [facility] [id number]) Out-Patient Physical Therapy Visit Information Visit Information Visit Type Treatment Note Visit Note Visit Start Time 08:17 Visit Stop Time 08:57 Total Visit Minutes 40 Visit Number 19 Number of PATTERNMAKER METAL BENCH Visits 0 PT-OP-B Current Condition Start: 03/06/20 12:11 Freq: Status: Active Protocol: Document 06/02/20 11:18 DCW (Rec: 06/02/20 11:38 DCW [id number]) Current Condition History of Current Condition Onset Date 02/28/20 Current Complaints Hip pain and stiffness following L SHERIDAN History of Current Condition Pt is a 34 year old female presenting one weeks s/p R SHERIDAN secondary to a long-standing history of back and hip problems due to avascular necrosis. Pt reports her left hip is scheduled for a SHERIDAN in April of this year, but at this time her left leg is so weak and painful, she is afraid it will negatively impact the rehab of her right SHERIDAN. 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 Admits that she has lost most of the muscle mass in her legs from atrophy, due to the fact that she is unable to do much activity at all without severe pain. Pt notes that before her surgery, she was only able to walk ~1.5 blocks, and that was with severe pain. Pt notes that with activity, her hip is a 9/ 10 in pain level, and at rest, this decreases to a 6/10. ADDENDUM 06/02/2020: Pt returns to therapy today following a Left SHERIDAN on 05/09/20. Pt reports she was supposed to start therapy two weeks ago, but was asked to hold off due to a greater trochanter fracture that happened at some point either during or after surgery. Pt walking without a walker for short distances, but uses it for shopping or longer distances. Pt reports she is very sore and fatigued on days following trips to the [employer] story. Notes that it is slowly getting better, but sleep has been horrendous. Pt also notes that the right side feels good, I don't have any complaints about it, and my back is doing much better, I feel like my alignment is much better now. Prior Treatments and Tests R SHERIDAN 02/28/20 L SHERIDAN 05/09/20 Treatment Goals Patient/Caregiver Goals I want to be able to walk without pain. PT-OP-C Subjective Start: 03/06/20 12:11 Freq: Status: Active Protocol: Document 09/06/20 08:15 [facility] (Rec: 09/06/20 08:59 [facility] [id number]) OP-PT Subjective Patient Comments Patient Comments Pt reports going for some walks and hips feel pretty good Pt went up/down 3 flights 3x and felt liek the 3rd time was slower. She has been stretching HS & calves. Been doing squats over her couch PT-OP-E Functional Tests Start: 03/06/20 12:11 Freq: Status: Active Protocol: Document 08/01/20 11:18 [facility] (Rec: 08/01/20 12:22 [facility] [id number]) Functional Tests 6 Minute Walk Test Distance 1059ft Device Used none Functional Gait Assessment Score PT-OP-F Manual Assessment Start: 03/06/20 12:43 Freq: Status: Active Protocol: Document 06/02/20 11:18 DCW (Rec: 06/02/20 11:38 DCW [id number]) Manual Assessments Soft Tissue Assessment Soft Tissue Mobility Assessment Significantly reduced tone in left QL vs initial evaluation, minimal mechanical scoliosis. PT-OP-G Mobility & Gait Start: 06/02/20 11:38 Freq: Status: Active Protocol: Document 06/02/20 11:18 [facility] (Rec: 06/02/20 11:39 DCW [id number]) OP Gait Assessment Gait Gait Assistance Required: Independent Distance (Feet) 357 Able to Maintain Weight Bearing Status Yes During Gait Assistive Devices Assistive Device None Gait Deviations General Gait Pattern Ataxic,Lateral Trunk Lean Factors Limiting Gait Function Factors Limiting Gait Function Abnormal Tonal Influences, Decreased Activity Tolerance, Decreased Strength Comments Gait Comments Trendelenberg gait due to left abductor weakness. PT-OP-J Posture/Palpation/Skin Start: 03/06/20 12:43 Freq: Status: Active Protocol: Document 06/02/20 11:18 [facility] (Rec: 06/02/20 11:38 DCW [id number]) Posture Evaluation Position Standing Scapula Posture (L) Elevated Weight Distribution Weight Shifted Right,Decreased Wt.Bear on (L) PT-OP-K Range of Motion Start: 03/06/20 12:11 Freq: Status: Active Protocol: Document 08/01/20 11:18 [facility] (Rec: 08/01/20 12:22 [facility] [id number]) Hip Goniometric Range of Motion Hip Right Passive Flexion w/Knee Flexed 106 Abduction 24 Left Passive Flexion w/Knee Flexed 103 Abduction 23 PT-OP-M Strength Start: 03/06/20 12:11 Freq: Status: Active Protocol: Document 08/01/20 11:18 [facility] (Rec: 08/01/20 12:22 [facility] [id number]) Hip Strength Hip Manual Muscle Testing Right Flexion (L2) 4+ Good+ Extension (S1) 3+ Fair+ Abduction 4- Good- Adduction 3+ Fair+ External Rotation 4 Good Internal Rotation 4 Good Comments rotations tested in very small range Left Flexion (L2) 4- Good- Extension (S1) 3 Fair Abduction 3 Fair External Rotation 3+ Fair+ Internal Rotation 3+ Fair+ PT-OP-Q Treatments Start: 03/06/20 12:11 Freq: Status: Active Protocol: Document 09/06/20 08:15 [facility] (Rec: 09/06/20 08:59 [facility] [id number]) Cardio Equipment Recumbent Elliptical (BiodFanaticall) Duration (Minutes) 6 Resistance 7 Seat Position 8 Gym Equipment Shuttle Recovery Unilateral Squats Resistance 50# R, 37# L Reps/Time 15 Bilateral Squats Resistance 87# Shuttle Recovery Platform Stable Reps/Time 20 Shuttle Balance 1 Reps/Duration head turns Comments fwd & side: WBOS & NBOS & wt shifts, squat fwd: staggered stance Therapeutic Exercises Standing Exercises hip hike Standing Exercise Name hip hike 4 in step Side bilateral Reps/Minutes 15 3 Standing Exercise Name sidestep Side bilateral Equipment Used yellow tband Reps/Minutes 20ft step up Standing Exercise Name w/alt march Side bilateral Equipment Used 8 in Reps/Minutes 10 posture Standing Exercise Name wall posture Side bilateral Reps/Minutes 1 min hold minisquat Standing Exercise Name over chair Side bilateral Reps/Minutes 15 1 Standing Exercise Name heel raise Side bilateral Reps/Minutes 30 Neuro Re-Education Treatment Balance Activities 1 Details SLS Comments 1.trials 2.rolling ball CW/CCW 3. toe tap to 16 in step 10 B PT-OP-T Assessment and Plan Start: 03/06/20 12:11 Freq: Status: Active Protocol: Document 09/06/20 08:15 [facility] (Rec: 09/06/20 08:59 [facility] [id number]) Physical Therapy Assessment Goals Six Impairment Pt amb /c Trendelenberg gait due to abd weakness Short Term Goal (STG) Pt to demonstrate gait with no trendelenberg pattern 70% of the time to show increased abductor strength STG Duration achieved Half-Way Goal (LTG) Pt will be able to walk on uneven ground and do backwards /sidesteps as needed when in areas with other peopel or animals to dec risk for falls. LTG Duration 10/01/20 Five Short Term Goal (STG) Pt will be able to ascend and descend stairs reciprocally with rail. STG Duration 08/31/20 Half-Way Goal (LTG) Pt will be able to ascend and descend stairs reciprocally without rail. LTG Duration 10/01/20 Four Impairment Limited hip ROM Half-Way Goal (LTG) Pt to tolerate passive ROM of 70? flexion and 45? abduction bilaterally 08/01- achieved passive flex, but not abd LTG Duration 10/01/20 Three Impairment Significant bilateral hip weakness Half-Way Goal (LTG) Pt to demonstrate bilateral hip MMT of at least 3+/5 in all planes 08/01-achieved in most planes- progress goal to at least 4/5 for hip and knee MMT LTG Duration 10/01/20 Two Impairment Gait speed of 2.96 ft/sec during 2 MWT /s AD Short Term Goal (STG) A gait speed of <1.77' can indicate an increased risk of further functional decline. Pt will demonstrate a gait speed >1.77 during a 2 minute walk test using a SPC STG Duration Met Phlebotomist Associate Goal (LTG) Pt to complete a 6 MWT without an assistive device and a gait speed <1.77 ft/sec 08/01-2.9 ft/sec without AD LTG Duration 10/01/20 One Impairment FGA 18/30 Short Term Goal (STG) Pt will be onofre to step over a shoe box without LOB and/or stopping. STG Duration 08/31/20 Phlebotomist Associate Goal (LTG) Pt will score at least 25/30 on FMA to show dec risk for falls and improved balance. LTG Duration 10/01/20 Assessment Summary Assessment Pt is improving w/ balance overall especially on RLE. pt reported fatigue in quads after exercises today. She does have slight lean to R when squatting. Physical Therapy Plan Frequency and Duration Frequency of Treatment 2x/Week Duration of Treatment 2 months Plan of Care Start Date 08/01/20 Plan of Care End Date 10/01/20 Next Visit Focus/Plan Next Note Type Treatment Note Next Visit Plan focus on balance and flexibility
--- NOTE | 2020-09-07 09:48 | PT.OTN ---
Current Diagnoses Pain in right hip (09/07/20) Pain in left hip (09/07/20) Stiffness of right hip, not elsewhere classified (09/07/20) Stiffness of left hip, not elsewhere classified (09/07/20) Other abnormalities of gait and mobility (09/07/20) Weakness (09/07/20) Presence of right artificial hip joint (09/07/20) Physical Therapy Treatment Note PT-OP-A Visit Information Start: 03/06/20 12:11 Freq: Status: Active Protocol: Document 09/07/20 09:08 [facility] (Rec: 09/07/20 09:48 [facility] [id number]) Out-Patient Physical Therapy Visit Information Visit Information Visit Type Treatment Note Visit Note Visit Start Time 09:07 Visit Stop Time 09:45 Total Visit Minutes 38 Visit Number 20 Number of QUARTER TRIMMER Visits 0 PT-OP-B Current Condition Start: 03/06/20 12:11 Freq: Status: Active Protocol: Document 06/02/20 11:18 DCW (Rec: 06/02/20 11:38 DC [id number]) Current Condition History of Current Condition Onset Date 02/28/20 Current Complaints Hip pain and stiffness following L SHERIDAN History of Current Condition Pt is a 34 year old female presenting one weeks s/p R SHERIDAN secondary to a long-standing history of back and hip problems due to avascular necrosis. Pt reports her left hip is scheduled for a SHERIDAN in April of this year, but at this time her left leg is so weak and painful, she is afraid it will negatively impact the rehab of her right SHERIDAN. 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 Admits that she has lost most of the muscle mass in her legs from atrophy, due to the fact that she is unable to do much activity at all without severe pain. Pt notes that before her surgery, she was only able to walk ~1.5 blocks, and that was with severe pain. Pt notes that with activity, her hip is a 9/ 10 in pain level, and at rest, this decreases to a 6/10. ADDENDUM 06/02/2020: Pt returns to therapy today following a Left SHERIDAN on 05/09/20. Pt reports she was supposed to start therapy two weeks ago, but was asked to hold off due to a greater trochanter fracture that happened at some point either during or after surgery. Pt walking without a walker for short distances, but uses it for shopping or longer distances. Pt reports she is very sore and fatigued on days following trips to the [employer] story. Notes that it is slowly getting better, but sleep has been horrendous. Pt also notes that the right side feels good, I don't have any complaints about it, and my back is doing much better, I feel like my alignment is much better now. Prior Treatments and Tests R SHERIDAN 02/28/20 L SHERIDAN 05/09/20 Treatment Goals Patient/Caregiver Goals I want to be able to walk without pain. PT-OP-C Subjective Start: 03/06/20 12:11 Freq: Status: Active Protocol: Document 09/07/20 09:08 [facility] (Rec: 09/07/20 09:48 [facility] [id number]) OP-PT Subjective Patient Comments Patient Comments Pt reprorts some mm soreness from yesterday. She reports she has some pain in L hip around greater trochanter. PT-OP-E Functional Tests Start: 03/06/20 12:11 Freq: Status: Active Protocol: Document 08/01/20 11:18 [facility] (Rec: 08/01/20 12:22 [facility] [id number]) Functional Tests 6 Minute Walk Test Distance 1059ft Device Used none Functional Gait Assessment Score 18/30 PT-OP-F Manual Assessment Start: 03/06/20 12:43 Freq: Status: Active Protocol: Document 06/02/20 11:18 DCW (Rec: 06/02/20 11:38 DCW [id number]) Manual Assessments Soft Tissue Assessment Soft Tissue Mobility Assessment Significantly reduced tone in left QL vs initial evaluation, minimal mechanical scoliosis. PT-OP-G Mobility & Gait Start: 06/02/20 11:38 Freq: Status: Active Protocol: Document 06/02/20 11:18 DCW (Rec: 06/02/20 11:39 DCW [id number]) OP Gait Assessment Gait Gait Assistance Required: Independent Distance (Feet) 357 Able to Maintain Weight Bearing Status Yes During Gait Assistive Devices Assistive Device None Gait Deviations General Gait Pattern Ataxic,Lateral Trunk Lean Factors Limiting Gait Function Factors Limiting Gait Function Abnormal Tonal Influences, Decreased Activity Tolerance, Decreased Strength Comments Gait Comments Trendelenberg gait due to left abductor weakness. PT-OP-J Posture/Palpation/Skin Start: 03/06/20 12:43 Freq: Status: Active Protocol: Document 06/02/20 11:18 DCW (Rec: 06/02/20 11:38 DCW [id number]) Posture Evaluation Position Standing Scapula Posture (L) Elevated Weight Distribution Weight Shifted Right,Decreased Wt.Bear on (L) PT-OP-K Range of Motion Start: 03/06/20 12:11 Freq: Status: Active Protocol: Document 08/01/20 11:18 [facility] (Rec: 08/01/20 12:22 [facility] [id number]) Hip Goniometric Range of Motion Hip Right Passive Flexion w/Knee Flexed 106 Abduction 24 Left Passive Flexion w/Knee Flexed 103 Abduction 23 PT-OP-M Strength Start: 03/06/20 12:11 Freq: Status: Active Protocol: Document 08/01/20 11:18 LR (Rec: 08/01/20 12:22 [facility] [id number]) Hip Strength Hip Manual Muscle Testing Right Flexion (L2) 4+ Good+ Extension (S1) 3+ Fair+ Abduction 4- Good- Adduction 3+ Fair+ External Rotation 4 Good Internal Rotation 4 Good Comments rotations tested in very small range Left Flexion (L2) 4- Good- Extension (S1) 3 Fair Abduction 3 Fair External Rotation 3+ Fair+ Internal Rotation 3+ Fair+ PT-OP-Q Treatments Start: 03/06/20 12:11 Freq: Status: Active Protocol: Document 09/07/20 09:08 [facility] (Rec: 09/07/20 09:48 [facility] [id number]) Cardio Equipment Recumbent Elliptical (Biodex) Duration (Minutes) 7 Resistance 6 Seat Position 8 Gym Equipment Shuttle Balance 1 Reps/Duration head turns Comments fwd & side: WBOS & NBOS & wt shifts fwd: staggered stance Therapeutic Exercises Standing Exercises 4 Standing Exercise Name Gastroc stretch Side bilateral Equipment Used stair Reps/Minutes 30 sec Neuro Re-Education Treatment Balance Activities EC Comments 1. blue foam WBOS & NBOS EC 2. staggered stance on blue tpads EC 3. EC fwd/back walk 2x50ft ea tandem Comments 1. stance 2. walking on line 50ftx2 3. tandem walk 2x20ft 1 Details SLS Comments 1.trials 2.rolling ball CW/CCW 3. toe tap to 16 in step 10 B PT-OP-T Assessment and Plan Start: 03/06/20 12:11 Freq: Status: Active Protocol: Document 09/07/20 09:08 [facility] (Rec: 09/07/20 09:48 [facility] [id number]) Physical Therapy Assessment Goals Six Impairment Pt amb /c Trendelenberg gait due to abd weakness Short Term Goal (STG) Pt to demonstrate gait with no trendelenberg pattern 70% of the time to show increased abductor strength STG Duration achieved Mcfp Goal (LTG) Pt will be able to walk on uneven ground and do backwards /sidesteps as needed when in areas with other peopel or animals to dec risk for falls. LTG Duration 10/01/20 Five Short Term Goal (STG) Pt will be able to ascend and descend stairs reciprocally with rail. STG Duration 08/31/20 Mcfp Goal (LTG) Pt will be able to ascend and descend stairs reciprocally without rail. LTG Duration 10/01/20 Four Impairment Limited hip ROM Senior Software T[employer] Goal (LTG) Pt to tolerate passive ROM of 70? flexion and 45? abduction bilaterally 08/01- achieved passive flex, but not abd LTG Duration 10/01/20 Three Impairment Significant bilateral hip weakness [employer] Tester Goal (LTG) Pt to demonstrate bilateral hip MMT of at least 3+/5 in all planes 08/01-achieved in most planes- progress goal to at least 4/5 for hip and knee MMT LTG Duration 10/01/20 Two Impairment Gait speed of 2.96 ft/sec during 2 MWT /s AD Short Term Goal (STG) A gait speed of <1.77' can indicate an increased risk of further functional decline. Pt will demonstrate a gait speed >1.77 during a 2 minute walk test using a SPC STG Duration Met Senior Software Tester Goal (LTG) Pt to complete a 6 MWT without an assistive device and a gait speed <1.77 ft/sec 08/01-2.9 ft/sec without AD LTG Duration 10/01/20 One Impairment FGA Short Term Goal (STG) Pt will be onofre to step over a shoe box without LOB and/or stopping. STG Duration 08/31/20 Mcfp Goal (LTG) Pt will score at least 25/30 on FMA to show dec risk for falls and improved balance. LTG Duration 10/01/20 Assessment Summary Assessment Pt cont to improve with ability to balance activities and was able to perform high level balance with some challenge. Physical Therapy Plan Frequency and Duration Frequency of Treatment 2x/Week Duration of Treatment 2 months Plan of Care Start Date 08/01/20 Plan of Care End Date 10/01/20 Next Visit Focus/Plan Next Note Type Treatment Note Next Visit Plan work on quad and glute strengthening for step ups, work on balance for uneven surfaces & dynamic balance, work on gait mechanics
--- NOTE | 2020-11-02 14:27 | PT.OPDS ---
Current Diagnoses Pain in right hip (09/07/20) Pain in left hip (09/07/20) Stiffness of right hip, not elsewhere classified (09/07/20) Stiffness of left hip, not elsewhere classified (09/07/20) Other abnormalities of gait and mobility (09/07/20) Weakness (09/07/20) Presence of right artificial hip joint (09/07/20) Visit Care Team Role Provider Type Roberto Carlos Sood MD Primary Care Provider Physician Specialty: Internal Medicine Address: [address] [place] [address], [id number] Email: [email or web address] Xander Martinez MD Attending Provider Non-Staff Referring Provider Specialty: Orthopedics Address: [address] [place] [address], [id number] Email: Visit Number Visit Number 20 Discharge Summary PT-OP-B Current Condition Start: 03/06/20 12:11 Freq: Status: Active Protocol: Document 06/02/20 11:18 DCW (Rec: 06/02/20 11:38 DCW [id number]) Current Condition History of Current Condition Onset Date 02/28/20 Current Complaints Hip pain and stiffness following L SHERIDAN History of Current Condition Pt is a 34 year old female presenting one weeks s/p R SHERIDAN secondary to a long-standing history of back and hip problems due to avascular necrosis. Pt reports her left hip is scheduled for a SHERIDAN in April of this year, but at this time her left leg is so weak and painful, she is afraid it will negatively impact the rehab of her right SHERIDAN. 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 Admits that she has lost most of the muscle mass in her legs from atrophy, due to the fact that she is unable to do much activity at all without severe pain. Pt notes that before her surgery, she was only able to walk ~1.5 blocks, and that was with severe pain. Pt notes that with activity, her hip is a 9/ 10 in pain level, and at rest, this decreases to a 6/10. ADDENDUM 06/02/2020: Pt returns to therapy today following a Left SHERIDAN on 05/09/20. Pt reports she was supposed to start therapy two weeks ago, but was asked to hold off due to a greater trochanter fracture that happened at some point either during or after surgery. Pt walking without a walker for short distances, but uses it for shopping or longer distances. Pt reports she is very sore and fatigued on days following trips to the [employer] story. Notes that it is slowly getting better, but sleep has been horrendous. Pt also notes that the right side feels good, I don't have any complaints about it, and my back is doing much better, I feel like my alignment is much better now. Prior Treatments and Tests R SHERIDAN 02/28/20 L SHERIDAN 05/09/20 Treatment Goals Patient/Caregiver Goals I want to be able to walk without pain. PT-OP-C Subjective Start: 03/06/20 12:11 Freq: Status: Active Protocol: Document 09/07/20 09:08 [facility] (Rec: 09/07/20 09:48 [facility] [id number]) OP-PT Subjective Patient Comments Patient Comments Pt reprorts some mm soreness from yesterday. She reports she has some pain in L hip around greater trochanter. PT-OP-E Functional Tests Start: 03/06/20 12:11 Freq: Status: Active Protocol: Document 08/01/20 11:18 LR (Rec: 08/01/20 12:22 [facility] [id number]) Functional Tests 6 Minute Walk Test Distance 1059ft Device Used none Functional Gait Assessment Score PT-OP-F Manual Assessment Start: 03/06/20 12:43 Freq: Status: Active Protocol: Document 06/02/20 11:18 DCW (Rec: 06/02/20 11:38 DCW [id number]) Manual Assessments Soft Tissue Assessment Soft Tissue Mobility Assessment Significantly reduced tone in left QL vs initial evaluation, minimal mechanical scoliosis. PT-OP-G Mobility & Gait Start: 06/02/20 11:38 Freq: Status: Active Protocol: Document 06/02/20 11:18 DCW (Rec: 06/02/20 11:39 DCW [id number]) OP Gait Assessment Gait Gait Assistance Required: Independent Distance (Feet) 357 Able to Maintain Weight Bearing Status Yes During Gait Assistive Devices Assistive Device None Gait Deviations General Gait Pattern Ataxic,Lateral Trunk Lean Factors Limiting Gait Function Factors Limiting Gait Function Abnormal Tonal Influences, Decreased Activity Tolerance, Decreased Strength Comments Gait Comments Trendelenberg gait due to left abductor weakness. PT-OP-J Posture/Palpation/Skin Start: 03/06/20 12:43 Freq: Status: Active Protocol: Document 06/02/20 11:18 DCW (Rec: 06/02/20 11:38 DCW [id number]) Posture Evaluation Position Standing Scapula Posture (L) Elevated Weight Distribution Weight Shifted Right,Decreased Wt.Bear on (L) PT-OP-K Range of Motion Start: 03/06/20 12:11 Freq: Status: Active Protocol: Document 08/01/20 11:18 [facility] (Rec: 08/01/20 12:22 [facility] [id number]) Hip Goniometric Range of Motion Hip Right Passive Flexion w/Knee Flexed 106 Abduction 24 Left Passive Flexion w/Knee Flexed 103 Abduction 23 PT-OP-M Strength Start: 03/06/20 12:11 Freq: Status: Active Protocol: Document 08/01/20 11:18 LR (Rec: 08/01/20 12:22 [facility] [id number]) Hip Strength Hip Manual Muscle Testing Right Flexion (L2) 4+ Good+ Extension (S1) 3+ Fair+ Abduction 4- Good- Adduction 3+ Fair+ External Rotation 4 Good Internal Rotation 4 Good Comments rotations tested in very small range Left Flexion (L2) 4- Good- Extension (S1) 3 Fair Abduction 3 Fair External Rotation 3+ Fair+ Internal Rotation 3+ Fair+ PT-OP-T Assessment and Plan Start: 03/06/20 12:11 Freq: Status: Active Protocol: Document 11/02/20 14:25 DCW (Rec: 11/02/20 14:26 DCW [id number]) Physical Therapy Assessment Assessment Summary Assessment Pt canceled last three scheduled visits, did not schedule any follow-ups. Pt has now not been seen in 55 days, and will be discharged at this time. Will require a new referral in order to return to skilled therapy. Physical Therapy Plan Discharge Physical Therapy Discharge Reasons No Longer Attending PT
== END 2020-11-07 09:43 ==
LOC: PHYS 09:00
PROVIDERS: PCP Internal Medicine; Referring Provider Orthopaedic Surgery; Visit Provider Orthopaedic Surgery
DX: Z96.641 Presence of right artificial hip joint (principal); R53.1 Weakness; M25.652 Stiffness of left hip, not elsewhere classified; M25.651 Stiffness of right hip, not elsewhere classified; M25.552 Pain in left hip; M25.551 Pain in right hip; R26.89 Other abnormalities of gait and mobility
CPT/HCPCS: 97110; 97112; 97116; 97140; 97163; 97164

== ENCOUNTER → 2020-11-21 13:57 | Outpatient (CLI) | payer OTHER, MEDICAID, SELFPAY ==
[2020-11-21 15:55] LABS: Alanine Aminotransferase 82 IU/L (<35); Albumin 3.9 g/dL (3.5-5.0); Albumin Globulin Ratio 1.3 (1.0-2.8); Alkaline Phosphatase 284 U/L (38-126); Aspartate Aminotransferase 289 IU/L (14-36); BUN Creatinine Ratio 4.3 (6-22); Bilirubin Total 0.8 mg/dL (0.2-1.3); Blood Urea Nitrogen < 2 mg/dL (7-17); Calcium 9.4 mg/dL (8.4-10.2); Carbon Dioxide 28 mmol/L (22-32); Chloride 100 mmol/L (98-107); Estimated Glomerular Filt Rate > 60.0 mL/min (>60); Glucose 80 mg/dL (70-100); HEMOLYSIS < 15 (0-50); Potassium 4.4 mmol/L (3.4-5.1); Sodium 139 mmol/L (137-145); Total Protein 6.9 g/dL (6.3-8.2)
[2020-11-21 16:03] LABS: Add Manual Diff / Slide Review YES; Hematocrit 39.7 % (36-46); Hemoglobin 13.2 g/dL (12.0-16.0); Mean Corpuscular HGB Conc 33.3 % (30-36); Mean Corpuscular Hemoglobin 35.6 PG (26-34); Mean Corpuscular Volume 106.8 fL (80-100); Platelet Count 222 X10^3/uL (150-400); Red Blood Cell Count 3.71 X10^6/uL (4.0-5.2); Red Cell Distribution Width 23.6 % (11.6-14.8)
[2020-11-21 16:06] LABS: White Blood Cell Count 1.6 X10^3/uL (4.5-11.0)
[2020-11-21 16:21] LABS: TSH w/ Reflex to FT4 1.01 uIU/mL (0.47-4.68)
[2020-11-21 16:46] LABS: Anisocytosis 2+; Neutrophils Absolute Manual 752 /uL (3000-5900); Total Cells Counted 100
[2020-11-21 16:47] LABS: Macrocytosis 2+; Poikilocytosis 1+
== END ==
PROVIDERS: PCP Registered Nurse Diabetes Educator; Referring Provider Registered Nurse Diabetes Educator; Visit Provider Registered Nurse Diabetes Educator
DX: E87.6 Hypokalemia (principal); K72.90 Hepatic failure, unspecified without coma; K74.60 Unspecified cirrhosis of liver
CPT/HCPCS: 36415; 80053; 84443; 85007; 85025

== ENCOUNTER → 2020-12-13 12:26 | Outpatient (CLI) | payer OTHER, MEDICAID, SELFPAY ==
[2020-12-13 12:57] LABS: Hematocrit 37.6 % (36-46); Hemoglobin 12.7 g/dL (12.0-16.0); Mean Corpuscular HGB Conc 33.6 % (30-36); Mean Corpuscular Hemoglobin 37.3 PG (26-34); Mean Corpuscular Volume 110.8 fL (80-100); Platelet Count 247 X10^3/uL (150-400)
[2020-12-13 13:02] LABS: INR 1.2 (0.9-1.3); Prothrombin Time 13.3 SECONDS (10.1-12.7); White Blood Cell Count 1.8 X10^3/uL (4.5-11.0)
[2020-12-13 13:10] LABS: Alanine Aminotransferase 66 IU/L (<35); Albumin 3.8 g/dL (3.5-5.0); Albumin Globulin Ratio 1.2 (1.0-2.8); Alkaline Phosphatase 248 U/L (38-126); Aspartate Aminotransferase 233 IU/L (14-36); Bilirubin Total 0.9 mg/dL (0.2-1.3); Calcium 9.2 mg/dL (8.4-10.2); Carbon Dioxide 24 mmol/L (22-32); Chloride 105 mmol/L (98-107); Estimated Glomerular Filt Rate > 60.0 mL/min (>60); Globulin 3.1 g/dL (1.7-4.1); Glucose 88 mg/dL (70-100); HEMOLYSIS < 15 (0-50); Potassium 3.6 mmol/L (3.4-5.1); Sodium 142 mmol/L (137-145); Total Protein 6.9 g/dL (6.3-8.2)
[2020-12-13 13:11] LABS: BUN Creatinine Ratio 3.5 (6-22); Blood Urea Nitrogen < 2 mg/dL (7-17)
[2020-12-13 13:33] LABS: Anisocytosis 2+; Macrocytosis 2+; Neutrophils Absolute Manual 1026 /uL (3000-5900); Platelet Estimate Adequate on smear; Total Cells Counted 100
[2020-12-13 13:34] LABS: Hypochromasia 1+
[2020-12-13 13:35] LABS: Toxic Granulation Present
== END ==
PROVIDERS: Internal Medicine Gastroenterology; PCP Registered Nurse Diabetes Educator; Referring Provider Registered Nurse Diabetes Educator; Visit Provider Registered Nurse Diabetes Educator
DX: K70.31 Alcoholic cirrhosis of liver with ascites (principal); K72.90 Hepatic failure, unspecified without coma; D69.6 Thrombocytopenia, unspecified; D70.9 Neutropenia, unspecified
CPT/HCPCS: 36415; 80053; 85025; 85610

== ENCOUNTER → 2021-01-09 10:28 | Outpatient (CLI) | payer OTHER, MEDICAID, SELFPAY ==
[2021-01-09 11:58] LABS: Alanine Aminotransferase 65 IU/L (<35); Albumin 3.7 g/dL (3.5-5.0); Albumin Globulin Ratio 1.2 (1.0-2.8); Alkaline Phosphatase 224 U/L (38-126); Aspartate Aminotransferase 250 IU/L (14-36); BUN Creatinine Ratio 7.8 (6-22); Bilirubin Total 0.8 mg/dL (0.2-1.3); Blood Urea Nitrogen 5 mg/dL (7-17); Calcium 9.2 mg/dL (8.4-10.2); Carbon Dioxide 27 mmol/L (22-32); Chloride 100 mmol/L (98-107); Estimated Glomerular Filt Rate > 60.0 mL/min (>60); Globulin 3.2 g/dL (1.7-4.1); Glucose 75 mg/dL (70-100); HEMOLYSIS < 15 (0-50); Potassium 3.1 mmol/L (3.4-5.1); Sodium 138 mmol/L (137-145); Total Protein 6.9 g/dL (6.3-8.2)
== END ==
PROVIDERS: PCP Registered Nurse Diabetes Educator; Referring Provider Internal Medicine Gastroenterology; Visit Provider Internal Medicine Gastroenterology
DX: K70.31 Alcoholic cirrhosis of liver with ascites (principal)
CPT/HCPCS: 36415; 80053

== ENCOUNTER 2021-01-16 10:09 | Emergency (ER) | payer OTHER, MEDICAID, SELFPAY ==
[2021-01-16 10:33] VITALS: BP 136/75; PULSE 90; RESP 14; TEMP 36.2; O2SAT 100; BMI 16.4
--- NOTE | 2021-01-16 11:46 | PC.NURSE ---
patient presenting with generalized complaints. states her left foot is mor enumb than normal, states bilateral foot swelling every morning. states her stomach feels numb. reports normal nausea. denies falls, changes to bowel or bladder patterns.
[2021-01-16 11:48] LABS: Add Manual Diff / Slide Review NO; Basophils Absolute Auto 0 /uL (0-100); Basophils Percent Auto 0.4 % (0-2); Eosinophils Absolute Auto 0 /uL (0-450); Eosinophils Percent Auto 0.9 % (2-4); Hemoglobin 13.6 g/dL (12.0-16.0); Lymphocytes Absolute Auto 500 /uL (1100-4500); Lymphocytes Percent Auto 24.1 % (25-40); Mean Corpuscular HGB Conc 33.9 % (30-36); Mean Corpuscular Hemoglobin 38.9 PG (26-34); Mean Corpuscular Volume 114.9 fL (80-100); Monocytes Absolute Auto 300 /uL (0-900); Neutrophils Absolute Auto 1200 /uL (1500-7000); Neutrophils Percent Auto 58.6 % (50-75); Platelet Count 201 X10^3/uL (150-400); Red Blood Cell Count 3.49 X10^6/uL (4.0-5.2); Red Cell Distribution Width 14.6 % (11.6-14.8)
[2021-01-16 12:00] LABS: Alanine Aminotransferase 77 IU/L (<35); Albumin 4.3 g/dL (3.5-5.0); Albumin Globulin Ratio 1.1 (1.0-2.8); Alkaline Phosphatase 276 U/L (38-126); Aspartate Aminotransferase 300 IU/L (14-36); BUN Creatinine Ratio 4.6 (6-22); Bilirubin Total 1.4 mg/dL (0.2-1.3); Blood Urea Nitrogen 3 mg/dL (7-17); Calcium 10.2 mg/dL (8.4-10.2); Carbon Dioxide 26 mmol/L (22-32); Chloride 102 mmol/L (98-107); Estimated Glomerular Filt Rate > 60.0 mL/min (>60); Globulin 3.9 g/dL (1.7-4.1); Glucose 120 mg/dL (70-100); HEMOLYSIS 21 (0-50); Lipase 38 U/L (23-300); Magnesium 1.9 mg/dL (1.6-2.3); Phosphorous 4.1 mg/dL (2.5-4.5); Potassium 4.2 mmol/L (3.4-5.1); Sodium 140 mmol/L (137-145); Total Protein 8.2 g/dL (6.3-8.2)
[2021-01-16] MEDS: SODIUM CHLORIDE 0.9% 1,000 ML 1000 ML IV (12:05)
[2021-01-16 12:17] LABS: Anisocytosis 1+; Macrocytosis 2+
--- NOTE | 2021-01-16 12:18 | ED_ITS ---
HPI - Recheck/Abnormal Lab/Rx General Chief Complaint: Recheck/Abnormal Lab/Rx Stated Complaint: numbness in both feet and stomach/ visual problems Time Seen by Provider: 01/16/21 10:59 Source: patient Mode of arrival: Ambulatory Limitations: no limitations History of Present Illness HPI narrative: Patient is a 35-year-old female. History of multiple issues to include alcoholism and anxiety and neuropathy and cirrhosis and anorexia and liver issues. Here for evaluation of multiple complaints. During my evaluation she stated that she is really here because she feels like the neuropathy in both of her feet is getting worse. She does have baseline neuropathy. Over the past several weeks/months. She feels like her symptoms are worsening. She is also describing abdominal numbness. Also vision changes because she is having problems sleeping at night because of the neuropathy in her feet. She has been on gabapentin in the past but this caused her some issues although she does admit it may have been a high dose. She does have a history of anorexia. She states that is going ?okay? right now. States she is eating and drinking. Related Data Home Medications Medication Instructions Recorded Confirmed lorazepam 1 mg PO BIDP PRN #0 09/13/17 01/03/21 cholecalciferol (vitamin D3) 1,000 unit PO DAILY #0 09/18/17 01/03/21 [Vitamin D3] calcium carbonate [Calcium 500] 2 tab PO DAILY 10/22/18 01/03/21 famotidine PO 04/04/20 01/03/21 tramadol PO 04/04/20 01/03/21 Previous Rx's Medication Instructions Recorded alendronate 70 mg tablet 70 mg PO QWEEK #12 tab 11/21/20 famotidine 20 mg tablet 20 mg PO BID #180 tab 11/21/20 lactulose 20 gram/30 mL oral 20 g PO BID #3000 ml 11/21/20 solution ondansetron HCl 4 mg tablet 4 mg PO QID PRN #30 tab 11/21/20 spironolactone 100 mg tablet 50 mg PO DAILY PRN #90 tab 11/21/20 amitriptyline 25 mg tablet 100 mg PO BEDTIME #360 tab 12/12/20 bupropion HCl 150 mg 24 hr tablet, 150 mg PO DAILY #90 tab 12/12/20 extended release ketoconazole 2 % topical cream 1 applic TOPICAL BID #15 g 12/12/20 potassium chloride 20 mEq 20 meq PO BID #180 tab 12/12/20 tablet,extended release(part/cryst) sertraline 25 mg tablet 25 mg PO BEDTIME #90 tab 12/12/20 mupirocin 2 % topical ointment 1 applic TOPICAL TID #22 g 01/03/21 triamcinolone acetonide 0.1 % 1 applic TOPICAL BID 14 Days #15 g 01/03/21 topical cream gabapentin 100 mg PO BID #60 cap 01/16/21 Allergies Allergy/AdvReac Type Severity Reaction Status Date / Time No Known Drug Allergies Allergy Verified 01/16/21 10:38 Review of Systems Constitutional Constitutional: Reports fatigue, Denies fever(s) and Denies headache(s) Eyes Eyes: Reports blurry vision ENT Ears, Nose, Mouth, and Throat: Denies headache(s) and Denies sore throat Cardiovascular Cardiovascular: Denies chest pain and Denies dyspnea Respiratory Respiratory: Denies dyspnea Gastrointestinal Gastrointestinal: Denies abdominal pain, Denies nausea and Denies vomiting Comments: Numbness on abdomen Genitourinary Genitourinary: Denies dysuria Genitourinary: Denies dysuria Musculoskeletal Musculoskeletal: Denies arthralgias, Denies myalgias and Reports tingling Integumentary/Breasts Skin/Breast: Denies lesions and Denies rash Neurologic Neurologic: Denies behavioral changes, Denies headache(s) and Reports tingling Psychiatric Psychiatric: Denies behavioral changes and Reports depression Endocrine Endocrine: Reports fatigue Hematologic/Lymphatic On Anticoagulants: No Allergic/Immunologic Allergic/Immunologic: Denies urticaria Patient History Medical History Alcoholism Alcoholism in remission Ankle pain, right Anorexia Anxiety Depression Social History Smoking Status: Never smoker Smoking Status: Never smoker alcohol intake frequency: 0-2 drinks per day Substance Use Type: does not use Exam Initial Vital Signs Initial Vital Signs: Vital Signs Temperature 97.2 F L 01/16/21 10:33 Pulse Rate 90 01/16/21 10:33 Respiratory Rate 14 01/16/21 10:33 Blood Pressure 136/75 01/16/21 10:33 Pulse Oximetry 100 01/16/21 10:33 Const General: cooperative and comfortable Limitations: mental status not altered [facility] Head: normal to inspection and normocephalic Eyes General: appearance normal, both eyes and all related structures Chest Chest: No crepitus and No tenderness Resp Effort & Inspection: normal respiratory effort Auscultation: clear to auscultation bilaterally Cardio Rate: regular rate Rhythm: regular rhythm GI Inspection: non-distended Palpation: soft, No firm and No tender Back/Spine/Pelvis Back: No CVA tenderness Skin Lesions: no lesions Rashes: no rashes Neuro General: patient alert, patient awake and patient oriented x3 Cognition: normal cognition Speech: speech normal Sensory Exam: no sensory deficits noted Other: Does report tingling to bilateral feet also reports ?numbness? with palpation of her abdomen Extrem General: normal to inspection and capillary refill normal Psych Appearance: grossly normal and well kempt Scores GCS [place] coma scale eye opening: Spontaneous [place] coma scale verbal response: Orientated [place] coma scale motor response: Obey commands Jean-Paul coma scale total score: 15 Course Orders Ordered: ED Orders 01/16/21 11:35 Complete Blood Count AUTO DIFF Stat Comprehensive Metabolic Panel Stat Lipase Stat Magnesium Stat Phosphorous Stat Test Serum,Qual Stat Discontinued Medications Sodium Chloride (Normal Saline 0.9%) 1,000 mls @ 1,000 mls/hr IV BOLUS ONE Stop: 01/16/21 11:58 Last Infusion: 01/16/21 13:19 Dose: 0 mls/hr Documented by: Admin: 01/16/21 12:05 Dose: 1,000 mls/hr Documented by: FABY Vital Signs Vital signs: Vital Signs - 8 hr 01/16/21 13:24 Pulse Rate 72 Respiratory Rate 16 Blood Pressure 141/93 H Pulse Oximetry 99 MDM - Recheck/Abnormal Lab/Rx Lab Data Attestation: I reviewed the patient's lab results. Result diagrams: 01/16/21 11:35 01/16/21 11:35 Labs: Lab Results 01/16/21 01/16/21 01/16/21 Range/Units 11:35 11:35 11:35 WBC 2.0 L (4.5-11.0) X10^3/uL RBC 3.49 L (4.0-5.2) X10^6/uL Hgb 13.6 (12.0-16.0) g/dL Hct 40.0 (36-46) % MCV 114.9 H (80-100) fL MCH 38.9 H (26-34) PG MCHC 33.9 (30-36) % RDW 14.6 (11.6-14.8) % Plt Count 201 (150-400) X10^3/uL Neut % (Auto) 58.6 (50-75) % Lymph % (Auto) 24.1 L (25-40) % Edmonson % (Auto) 16.0 H (3-14) % Eos % (Auto) 0.9 L (2-4) % Baso % (Auto) 0.4 (0-2) % Neut # (Auto) 1200 L (1999-7052) /uL Lymph # (Auto) 500 L (1104-6535) /uL Edmonson # (Auto) 300 (0-900) /uL Eos # (Auto) 0 (0-450) /uL Baso # (Auto) 0 (0-100) /uL RBC Morphology See below Anisocytosis 1+ H Macrocytosis 2+ H Sodium 140 (137-145) mmol/L Potassium 4.2 (3.4-5.1) mmol/L Chloride 102 (98-107) mmol/L Carbon Dioxide 26 (22-32) mmol/L BUN 3 L (7-17) mg/dL Creatinine 0.65 (0.52-1.04) mg/dL Estimated GFR > 60.0 (>60) mL/min BUN/Creatinine Ratio 4.6 L (6-22) Glucose 120 H (70-100) mg/dL Calcium 10.2 (8.4-10.2) mg/dL Phosphorus 4.1 (2.5-4.5) mg/dL Magnesium 1.9 (1.6-2.3) mg/dL Total Bilirubin 1.4 H (0.2-1.3) mg/dL AST 300 H (14-36) IU/L ALT 77 H (<35) IU/L Alkaline Phosphatase 276 H (38-126) U/L Total Protein 8.2 (6.3-8.2) g/dL Albumin 4.3 (3.5-5.0) g/dL Globulin 3.9 (1.7-4.1) g/dL Albumin/Globulin Ratio 1.1 (1.0-2.8) Lipase 38 (23-300) U/L Serum , Qual Negative (Negative) MDM Narrative Medical decision making narrative: Patient is vascularly intact. She has subjective decreased sensation to both of her feet and her abdomen to light touch. The neuropathy is not new she does feels like it has been worsening. Her electrolytes are unremarkable. Her bilirubin and LFTs are elevated but she does have a history of cirrhosis secondary to alcohol. She states she is not drinking any alcohol. No signs of infection. I feel that we can hold on further workup for now. She would like to start back on gabapentin but at a lower dose. She felt like it did help her neuropathy in the past but it she felt it was the higher dose the caused her to have issues. She was given a prescription for this and instructed to contact her primary doctor. She is given return precautions. She expressed understanding and agreement. Discharge Plan Departure Patient Disposition: Home Clinical Impression: Neuropathy Instructions: Peripheral Neuropathy Activity Restrictions/Additional Instructions: Recommend you continue to take all of your medications as directed. A prescription for gabapentin was electronically transmitted to [facility]. Be sure to talk with your primary doctor about the symptoms your happen is you may need to have a referral to see Neurology. Return to the emergency department for any new or worsening symptoms Prescriptions: New gabapentin 100 mg capsule 100 mg PO BID Qty: 60 RF: 0 No Action lorazepam 1 MG tablet 1 mg PO BIDP PRN (Reason: Anxiety) Qty: 0 RF: 0 cholecalciferol (vitamin D3) [Vitamin D3] 1,000 UNIT tablet 1,000 unit PO DAILY Qty: 0 RF: 0 famotidine PO RF: 0 tramadol PO RF: 0 alendronate 70 mg tablet 70 mg PO QWEEK Qty: 12 RF: 3 famotidine 20 mg tablet 20 mg PO BID Qty: 180 RF: 3 lactulose 20 gram/30 mL solution 20 g PO BID Qty: 3000 RF: 5 ondansetron HCl 4 mg tablet 4 mg PO QID PRN (Reason: Nausea And Vomiting) Qty: 30 RF: 4 spironolactone 100 mg tablet 50 mg PO DAILY PRN (Reason: fluid over load) Qty: 90 RF: 3 ketoconazole 2 % cream 1 applic topical BID Qty: 15 RF: 1 bupropion HCl [Wellbutrin XL] 150 mg tablet extended release 24 hr 150 mg PO DAILY Qty: 90 RF: 3 sertraline 25 mg tablet 25 mg PO BEDTIME Qty: 90 RF: 3 potassium chloride 20 mEq tablet,ER particles/crystals 20 meq PO BID Qty: 180 RF: 3 amitriptyline 25 mg tablet 100 mg PO BEDTIME Qty: 360 RF: 3 mupirocin 2 % ointment 1 applic topical TID Qty: 22 RF: 0 triamcinolone acetonide 0.1 % cream 1 applic topical BID 14 Days Qty: 15 RF: 0 calcium carbonate [Calcium 500] 500 mg calcium (1,250 mg) Tablet 2 tab PO DAILY RF: 0 Referrals: Toño Dunlap ARNP [Primary Care Provider] -
[2021-01-16 12:27] LABS: Pregnancy Test Serum,Qual Negative (Negative)
[2021-01-16 13:24] VITALS: BP 141/93; PULSE 72; RESP 16; O2SAT 99
== END 2021-01-16 13:27 | disposition home or self-care (01) ==
PROVIDERS: Emergency Provider Emergency Medicine; PCP Registered Nurse Diabetes Educator
DX: G62.9 Polyneuropathy, unspecified (principal)
CPT/HCPCS: 36415; 80053; 83690; 83735; 84100; 84703; 85025; 96360; 99284

== ENCOUNTER → 2021-04-02 12:15 | Outpatient (CLI) | payer OTHER, MEDICAID, SELFPAY ==
--- NOTE | 2021-04-02 | DI.RAD.S_ITS ---
PROCEDURE: XR HIP W PEL IF DONE LT 2V INDICATIONS: Presence of left artificial hip joint TECHNIQUE: AP pelvis with lateral view(s) of the left hip(s). COMPARISON: [facility], CR, XR PELVIS WITH BILATERAL LATERAL HIPS, 02/06/2021, 12:44. [facility], CR, XR HIP W PEL IF DONE LT 2V, 07/19/2020, 12:46. [facility], CR, XR HIP W PEL IF DONE LT 2V, 05/15/2020, 12:24. FINDINGS: Bones: Bilateral total hip arthroplasties appears stable. No periprosthetic lucency surrounding the left hip to suggest loosening or infection. No fractures or dislocations. Pelvic ring appears intact. No suspicious bony lesions. Soft tissues: The visualized bowel gas pattern is normal. No suspicious soft tissue calcifications. IMPRESSION: No interval change appreciated. Stable appearance of the left hip arthroplasty. Dictated by: Tremayne Ma M.D. on 04/02/2021 at 13:32 Approved by: Tremayne Ma M.D. on 04/02/2021 at 13:34
== END ==
PROVIDERS: PCP Registered Nurse Diabetes Educator; Referring Provider Orthopaedic Surgery; Visit Provider Orthopaedic Surgery
DX: Z09 Encounter for follow-up examination after completed treatment for conditions other than malignant neoplasm (principal); Z96.643 Presence of artificial hip joint, bilateral
CPT/HCPCS: 73502

== ENCOUNTER 2021-06-18 11:14 | Emergency (ER) | payer OTHER, MEDICAID, SELFPAY ==
[2021-06-18] VITALS (9 sets, daily range): BP systolic 87–122; BP diastolic 57–85; PULSE 80–108; RESP 18; TEMP 35.9; O2SAT 97–100; BMI 14.1
[2021-06-18 11:34] LABS: Hematocrit 39.6 % (36-46); Hemoglobin 13.5 g/dL (12.0-16.0); Mean Corpuscular Volume 97.2 fL (80-100); Platelet Count 210 X10^3/uL (150-400); Red Blood Cell Count 4.08 X10^6/uL (4.0-5.2); Red Cell Distribution Width 14.5 % (11.6-14.8)
[2021-06-18 11:35] LABS: White Blood Cell Count 1.6 X10^3/uL (4.5-11.0)
[2021-06-18 11:36] LABS: Add Manual Diff / Slide Review YES
--- NOTE | 2021-06-18 11:36 | ED_ITS ---
HPI - Weakness General Chief complaint: Dizziness Stated complaint: lack of hydration Called over Time Seen by Provider: 06/18/21 11:17 Source: patient Mode of arrival: Wheelchair History of Present Illness HPI Narrative: 35F nonsmoker with extensive alcohol history, malnutrition, cirrhosis, anorexia presents from the walk in clinic due to concerns for dehydration and orthostasis. She admits that she hadn't had her normal breakfast smoothie or anything to eat or drink yet because she woke up early. She denies nausea, vomiting or diarrhea. She has had no fever chills. She denies any chest pain or shortness of breath. She feels generally weak and dizzy upon standing with improvement at rest. She has no urinary complaints such as dysuria, frequency or urgency Related Data Home Medications Medication Instructions Recorded Confirmed lorazepam 1 mg tablet 1 mg PO BIDP PRN #0 09/13/17 05/03/21 cholecalciferol (vitamin D3) 25 1,000 unit PO DAILY #0 09/18/17 05/03/21 mcg (1,000 unit) tablet (Vitamin D3) amitriptyline 75 mg tablet 75 mg PO DAILY 03/22/21 05/03/21 calcium carbonate 500 mg calcium 500 mg PO DAILY 03/22/21 05/03/21 (1,250 mg) tablet furosemide 20 mg tablet 20 mg PO DAILY 03/22/21 05/03/21 Previous Rx's Medication Instructions Recorded alendronate 70 mg tablet 70 mg PO QWEEK #12 tab 11/21/20 famotidine 20 mg tablet 20 mg PO BID #180 tab 11/21/20 lactulose 20 gram/30 mL oral 20 g PO BID #3000 ml 11/21/20 solution ondansetron HCl 4 mg tablet 4 mg PO QID PRN #30 tab 11/21/20 potassium chloride 20 mEq 20 meq PO BID #180 tab 12/12/20 tablet,extended release(part/cryst) tramadol 50 mg tablet 50 mg PO Q12H PRN #10 tab 01/25/21 trazodone 50 mg tablet 100 mg PO BEDTIME #180 tab 02/01/21 acamprosate 333 mg tablet,delayed 333 mg PO BID #180 tab 06/18/21 release Allergies Allergy/AdvReac Type Severity Reaction Status Date / Time gabapentin AdvReac Intermediate Mental Verified 05/10/21 10:08 status changes Review of Systems Review of Systems Narrative: GENERAL: See HPI HEENT: Denies sinus pain, ear pain, sore throat, difficulty swallowing, dizziness. RESPIRATORY: Denies dyspnea, cough, wheezing, hemoptysis, sputum. CARDIOVASCULAR: Denies chest pain, palpitations, orthopnea, edema, GASTROINTESTINAL: Denies nausea, vomiting, abdominal pain, diarrhea, constipation, melena. : Denies dysuria, frequency, incontinence, hematuria, urinary retention. MUSCULOSKELETAL: denies weakness, joint pain, or bony pain SKIN: Denies rash, skin lesions, or other NEUROLOGIC: Denies weakness, headache, numbness, change in speech, confusion, seizures, incoordination. PSYCHIATRIC: No concerning psychosocial issues. 12 point review of systems is negative except for those stated above Patient History Medical History Alcoholism Alcoholism in remission Ankle pain, right Anorexia Anorexia nervosa Anxiety Caloric malnutrition Depression Neuropathy Social History Smoking Status: Never smoker Smoking Status: Never smoker alcohol intake frequency: 0-2 drinks per day Substance Use Type: does not use Exam Narrative Exam Narrative: GENERAL: [35 year old patient appears stated age. Thin, malnourished, chronically ill and in mild distress HEAD: Atraumatic. Normocephalic. EYES: Pupils equal round and reactive. Extraocular motions intact. No scleral icterus. No injection or drainage. ENT: Dry mucous membranes Nose without bleeding, purulent drainage. Throat without erythema, tonsillar hypertrophy or exudate. Airway patent. NECK: Trachea midline. Non tender CARDIOVASCULAR: Regular rate and rhythm without murmurs, gallops, or rubs. RESPIRATORY: Clear to auscultation. Breath sounds equal bilaterally. No wheezes, rales, or rhonchi. GASTROINTESTINAL: Abdomen soft, non-tender, nondistended. EXTREMITIES: No edema or joint tenderness. BACK: Nontender without deformity or crepitance. No flank tenderness. NEURO: AOx3. SKIN: No rash or erythema of visible areas Initial Vital Signs Initial Vital Signs: Vital Signs Temperature 96.7 F L 06/18/21 11:24 Pulse Rate 108 H 06/18/21 11:24 Respiratory Rate 18 06/18/21 11:24 Blood Pressure 87/57 L 06/18/21 11:24 Pulse Oximetry 100 06/18/21 11:24 Course Orders Ordered: Discontinued Medications Sodium Chloride (Normal Saline 0.9%) 1,000 mls @ 1,000 mls/hr IV BOLUS ONE Stop: 06/18/21 12:16 Last Infusion: 06/18/21 12:41 Dose: 0 mls/hr Documented by: Admin: 06/18/21 11:37 Dose: 1,000 mls/hr Documented by: OCTAVIANO Vital Signs Vital signs: Vital Signs - 8 hr 06/18/21 11:24 Temperature 96.7 F L Pulse Rate 87 Pulse Rate [Orthostatic Lying] 87 Pulse Rate [Orthostatic Standing] 108 H Respiratory Rate 18 Blood Pressure 107/74 Blood Pressure [Orthostatic Lying] 107/74 Blood Pressure [Orthostatic Standing] 87/57 L Pulse Oximetry 100 MDM - Weakness Lab Data Result diagrams: 06/18/21 11:28 06/18/21 11:28 Labs: Lab Results 06/18/21 06/18/21 06/18/21 Range/Units 11:28 11:28 11:28 WBC 1.6 L* (4.5-11.0) X10^3/uL RBC 4.08 (4.0-5.2) X10^6/uL Hgb 13.5 (12.0-16.0) g/dL Hct 39.6 (36-46) % MCV 97.2 (80-100) fL MCH 33.0 (26-34) PG MCHC 34.0 (30-36) % RDW 14.5 (11.6-14.8) % Plt Count 210 (150-400) X10^3/uL Neut % (Auto) Not Reportable Lymph % (Auto) Not Reportable Kern % (Auto) Not Reportable Eos % (Auto) Not Reportable Baso % (Auto) Not Reportable Lymph # (Auto) Not Reportable Kern # (Auto) Not Reportable Baso # (Auto) Not Reportable Total Counted 100 Seg Neutrophils % 9.0 L (38-70) % Lymphocytes % (Manual) 81.0 H (25-45) % Atypical Lymphs % 1.0 H ( - 0) % Monocytes % (Manual) 6.0 (2-11) % Eosinophils % (Manual) 1.0 L (2-4) % Basophils % (Manual) 2.0 H (0-1) % Neutrophils # (Manual) 144 L (6401-4571) /uL RBC Morphology Not Reportable Macrocytosis 1+ H Sodium 139 (137-145) mmol/L Potassium 3.3 L (3.4-5.1) mmol/L Chloride 98 (98-107) mmol/L Carbon Dioxide 32 (22-32) mmol/L BUN 8 (7-17) mg/dL Creatinine 0.66 (0.52-1.04) mg/dL Estimated GFR > 60.0 (>60) mL/min BUN/Creatinine Ratio 12.1 (6-22) Glucose 74 (70-100) mg/dL Calcium 9.4 (8.4-10.2) mg/dL Magnesium 2.0 (1.6-2.3) mg/dL Total Bilirubin 0.3 (0.2-1.3) mg/dL AST 123 H (14-36) IU/L ALT 53 H (<35) IU/L Alkaline Phosphatase 423 H (38-126) U/L Total Protein 7.8 (6.3-8.2) g/dL Albumin 3.9 (3.5-5.0) g/dL Globulin 3.9 (1.7-4.1) g/dL Albumin/Globulin Ratio 1.0 (1.0-2.8) Ketones 0.19 (<0.27) mmol/L MDM Narrative Medical decision making narrative: Patient feels tremendous improvement after fluid. Her labs are largely at her baseline. Vital signs of improved, she is no longer symptomatic upon standing and requesting discharge. Return precaut ions have been given and questions answered to her apparent satisfaction Discharge Plan Departure Patient Disposition: Home Clinical Impression: Acute dehydration, Acute hypokalemia Instructions: DI for Dehydration -- Adult Activity Restrictions/Additional Instructions: *You have been diagnosed with [acute dehydration, mild hypokalemia *What to do: * please take an extra potassium supplement each of the next 3 days, and otherwisecontinue to take your regular medications as directed. [ ] New medication prescriptions sent to your pharmacy: [ ] [ ] New medication written as a paper prescription [ ] No new medications given *Please follow up with your primary care provider in 2-3 days, call for an appointment. Let them know you were seen in the Emergency Department and that we ask that you be seen in follow up. We will electronically transmit a record of today's note if your PCP is in our system *If you do not have a primary care provider please contact the [facility] Resource line at [phone]. They will ask some questions about your medical history and help get you set up with a doctor in the community. *Return to Emergency Department if you should have any new, worsening or concerning symptoms, such as [fever greater than 101 F, shaking chills, worsening pain, persistent vomiting or other bothersome symptoms] Prescriptions: No Action lorazepam 1 MG tablet 1 mg PO BIDP PRN (Reason: Anxiety) Qty: 0 RF: 0 cholecalciferol (vitamin D3) [Vitamin D3] 1,000 UNIT tablet 1,000 unit PO DAILY Qty: 0 RF: 0 tramadol 50 mg tablet 50 mg PO Q12H PRN (Reason: pain) Qty: 10 RF: 0 alendronate 70 mg tablet 70 mg PO QWEEK Qty: 12 RF: 3 famotidine 20 mg tablet 20 mg PO BID Qty: 180 RF: 3 lactulose 20 gram/30 mL solution 20 g PO BID Qty: 3000 RF: 5 ondansetron HCl 4 mg tablet 4 mg PO QID PRN (Reason: Nausea And Vomiting) Qty: 30 RF: 4 potassium chloride 20 mEq tablet,ER particles/crystals 20 meq PO BID Qty: 180 RF: 3 amitriptyline 75 mg tablet 75 mg PO DAILY RF: 0 calcium carbonate 500 mg calcium (1,250 mg) tablet 500 mg PO DAILY RF: 0 furosemide 20 mg tablet 20 mg PO DAILY RF: 0 acamprosate 333 mg tablet,delayed release (DR/EC) 333 mg PO BID Qty: 180 RF: 1 trazodone 50 mg tablet 100 mg PO BEDTIME Qty: 180 RF: 3 Referrals: Toño Dunlap ARNP [Primary Care Provider] -
[2021-06-18] MEDS: SODIUM CHLORIDE 0.9% 1,000 ML 1000 ML IV (11:37)
[2021-06-18 11:49] LABS: Alanine Aminotransferase 53 IU/L (<35); Albumin 3.9 g/dL (3.5-5.0); Alkaline Phosphatase 423 U/L (38-126); Aspartate Aminotransferase 123 IU/L (14-36); BUN Creatinine Ratio 12.1 (6-22); Bilirubin Total 0.3 mg/dL (0.2-1.3); Blood Urea Nitrogen 8 mg/dL (7-17); Calcium 9.4 mg/dL (8.4-10.2); Carbon Dioxide 32 mmol/L (22-32); Chloride 98 mmol/L (98-107); Estimated Glomerular Filt Rate > 60.0 mL/min (>60); Globulin 3.9 g/dL (1.7-4.1); Glucose 74 mg/dL (70-100); HEMOLYSIS 18 (0-50); Potassium 3.3 mmol/L (3.4-5.1); Sodium 139 mmol/L (137-145); Total Protein 7.8 g/dL (6.3-8.2)
[2021-06-18 11:56] LABS: Ketones (Beta-Hydroxybutyrate) 0.19 mmol/L (<0.27)
[2021-06-18 12:10] LABS: Macrocytosis 1+; Neutrophils Absolute Manual 144 /uL (3000-5900); Total Cells Counted 100
== END 2021-06-18 12:57 | disposition home or self-care (01) ==
PROVIDERS: Emergency Provider Emergency Medicine; PCP Registered Nurse Diabetes Educator
DX: R42 Dizziness and giddiness (principal); E87.6 Hypokalemia
CPT/HCPCS: 36415; 80053; 82009; 83735; 85007; 85025; 96360; 99284

== ENCOUNTER 2021-06-22 10:30 | Outpatient (RCR) | payer OTHER, MEDICAID, SELFPAY ==
--- NOTE | 2021-04-23 12:38 | PT.OIE ---
Current Diagnoses Presence of unspecified artificial hip joint (04/23/21) Past Medical History (Last Reviewed 04/19/21 @ 17:50 by FELIPE Lemos) Alcoholism Alcoholism in remission Ankle pain, right Anorexia Anorexia nervosa Anxiety Caloric malnutrition Depression Neuropathy Visit Care Team Role Provider Type FELIPE Lemos Primary Care Provider [employer] Consultant Specialty: Medical Address: [address] [place] [address], [facility] Email: [email or web address] Xander Martinez MD Attending Provider Non-Staff Referring Provider Specialty: Orthopedics Address: [address] [place] [address], [facility] Email: Physical Therapy Initial Evaluation PT-OP-A Visit Information Start: 04/19/21 17:48 Freq: Status: Active Protocol: Document 04/23/21 10:37 LRN (Rec: 04/23/21 12:31 LRN [id number]) Out-Patient Physical Therapy Visit Information Visit Information Visit Type Initial Evaluation Visit Start Time 10:37 Visit Stop Time 11:26 Total Visit Minutes 49 Visit Number 1 Evaluation Information Evaluation Date 04/23/21 Precautions Precautions Medical records review: Anorexia, Neuropathy, R ankle pain, alcoholism in remission, Cirrhosis, hx of L foot/ankle /knee injury, hx of R foot/ ankle injury and R SHERIDAN. PT-OP-B Current Condition Start: 04/19/21 17:48 Freq: Status: Active Protocol: Document 04/23/21 10:37 LRN (Rec: 04/23/21 12:31 LRN [id number]) Current Condition History of Current Condition Onset Date 04/03/21 Current Complaints Pain in L hip rated 3-7/10, hovers around 5/10. History of Current Condition Per pt report: Original L SHERIDAN 02/2020 @ (Dr. Martinez), did rehab at [facility] ( ) and completed therapy, followed by R SHERIDAN in 04/2020 with rehab at finishing 2019 due to insurance limit. Tripped on cat beginning of March, injuring the L hip, resulting in L SHERIDAN revision and was discharged from hospital 04/05/21 Pt was discharged home without therapy home services. Pt's mother who lives close by was available to help pt during her recovery. Pt states she was told her femur and ball joint didn't break but needed to put in a larger claudy and wire her bone together. ( Pt reports prior hx of breaking the L greater trochanter with no treatment given). Prior Treatments and Tests Per pt, Precautions: Restriction: Flex <120 deg's and no abduction (records unavailable). Future Testing and Treatments Planned Next Ortho appt ~April,. Treatment Goals Patient/Caregiver Goals Pt goal is to be able to walk without a hitch, walk up/down stairs withpout handrail, take hike and have better balalnce and stamina. Prior Functional Status Baseline Function- ADL's Independent Baseline Function- Mobility Independent Baseline Function- Gait Stairs, could walk 4 blks. Baseline Function- Work/School Unemployed Baseline Function- Other Lives on bottom level appt. Mother helps her carry heavy things into house and cleans the floors. Current Functional Impairments (Reported) Functional Limitations- ADL's Walks around apartment, walks around [employer] is exhausting. Hip flexion of 100 deg's with sit to stand. Functional Limitations- Mobility/Gait Walks with FWW outside. No assistive device in apartment but is painful and hobbles. Functional Limitations- Other Stairs impossible, Walking painful, sleeping on sides painful. Told to put pillows between legs. Personal Factors Other Personal Factors That May Effect Lives alone with mother living Therapy/Recovery close by to help. Pt has extensive health history: blood clots, depression, dizziness, falls, Bilateral SHERIDAN's, kidney disease, liver disease, neuropathy, osteoporosis, stroke. 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 PT-OP-C Subjective Start: 04/19/21 17:48 Freq: Status: Active Protocol: Document 04/23/21 10:37 LRN (Rec: 04/23/21 12:31 LRN [id number]) Patient Questionnaires Lower Extremity Functional Scale LEFS Score 10 LEFS Impairment 80 to 99% Impaired (Score 1-16 ) OP-PT Pain Assessment Pain Assessment Grid Paper Pain Assessment Grid Completed Yes Location L lateral hip and lateral thign Pain Location Details L lateral hip and lateral thigh Intensity 7 Scale Used Numeric (0 - 10) Description Aching Frequency Constant Pain Aggravating Factors Walking,Stair Climbing Other Pain Aggravating Factors Bending too far, squat, laying on sides (can't lift leg jose R sidelie) PT-OP-G Mobility & Gait Start: 04/19/21 17:48 Freq: Status: Active Protocol: Document 04/23/21 10:37 LRN (Rec: 04/23/21 12:31 LRN [id number]) OP Mobility Evaluation Bed Mobility Supine to and from Sit Independent, swings both legs (together) onto table . Transfers Sit to Stand Independent with use of hands. OP Gait Assessment Gait Gait Assistance Required: Independent Distance (Feet) 100 Able to Maintain Weight Bearing Status Yes During Gait Assistive Devices Assistive Device Front Wheeled Walker Gait Deviations General Gait Pattern Antalgic Factors Limiting Gait Function Factors Limiting Gait Function Decreased Activity Tolerance, Decreased Sensation,Decreased Strength,Pain,Poor Balance Comments Gait Comments Tried hiking canes. Stair Climbing Evaluation Comments Stair Climbing Comments Tried stairs using railing preferrably on the R side. Cant get up a curb without a hand assist of some kind. ....... PT-OP-J Posture/Palpation/Skin Start: 04/19/21 17:48 Freq: Status: Active Protocol: Document 04/23/21 10:37 LRN (Rec: 04/23/21 12:31 LRN [id number]) Posture Evaluation Position Standing Head/C-Spine Posture Neutral Position T-Spine Posture Flattened L-Spine Posture Flattened Shoulder Posture Neutral Scapula Posture (L) Winged,(R) Winged Comments Posture Comments Stands with trunk L leaning when wgt shifting onto LLE, normal trunk posture with wgt shift onto RLE. Palpation Assessment Location L hip Palpation Location L hip Palpation Findings Tenderness PT-OP-K Range of Motion Start: 04/19/21 17:48 Freq: Status: Active Protocol: Document 04/23/21 10:37 LRN (Rec: 04/23/21 12:31 LRN [id number]) Hip Goniometric Range of Motion Hip Right Active Testing Position Supine Flexion w/Knee Flexed 100 Abduction 20 Internal Rotation 30 External Rotation 55 Comments Uninvolved side with history or R SHERIDAN Left Active Testing Position Supine Flexion w/Knee Flexed 100 Knee Goniometric Range of Motion Knee Right Knee ROM WFL Yes Patient Position Supine Left Knee ROM WFL Yes Patient Position Supine PT-OP-M Strength Start: 04/19/21 17:48 Freq: Status: Active Protocol: Document 04/23/21 10:37 LRN (Rec: 04/23/21 12:31 LRN [id number]) Hip Strength Hip Manual Muscle Testing Right Flexion (L2) 5 Normal Extension (S1) 5 Normal Comments Deferred testing of other muscle groups due to L hip pain. Left Flexion (L2) 2+ Poor+ Extension (S1) 3- Fair- Comments Deferred testing of other muscle groups due to pain and precautioins limiting testing. Knee Strength Knee Manual Muscle Testing Right Comments Generally 5/5 Left Comments Generally 5/5 PT-OP-Q Treatments Start: 04/19/21 17:48 Freq: Status: Active Protocol: Document 04/23/21 10:37 LRN (Rec: 04/23/21 12:31 LRN [id number]) Self-Care/Home Management Treatment Education Other Education Discussed results of evaluation, goals and plan of care (POC). Pt agreeable to goals and POC. Activities Self-Care/Home Management Activities Instructed pt to use walker at home until L hip pain lessens to prevent dysfunctional gait pattern. Pt to increase awareness of proper standing posture. PT-OP-T Assessment and Plan Start: 04/19/21 17:48 Freq: Status: Active Protocol: Document 04/23/21 10:37 LRN (Rec: 04/23/21 12:31 LRN [id number]) Physical Therapy Assessment Rehab Potential Rehabilitation Potential Good Evaluation Complexity Number of Personal Factors/Comorbidities 3 or More Number of Body Systems Impaired 4 or More Clinical Presentation at Evaluation Evolving Impairments Impairments Activity Tolerance,Balance, Gait,Pain,Posture,ROM,Soft Tissue Mobility,Strength Goals Four Impairment Decreased endurance (gait 92' with walking sticks prior to fatigue) Short Term Goal (STG) Pt will demonstrate improved endurance with ability to walk 200+ feet with appropriate assistive device without L hip pain greater than 2-3/10 and without fatigue. STG Duration 05/22/21 [facility] Goal (LTG) Pt will improve balance to be able to walk on uneven surfaces with ability to independently correct for balance near loss, and to improve her confidence to hike by 50%. LTG Duration 06/22/21 Three Impairment Decreased ambulatory ability on level (endurance) and steps (curb, railing) Short Term Goal (STG) Pt will be able to independently go up/down a curb with an assistive device (cane, one crutch, or walking sticks). STG Duration 05/22/21 [facility] Goal (LTG) Pt will be able to walk up/ down stairs without handrail. LTG Duration 06/22/21 Two Impairment Gait requiring use of FWW Short Term Goal (STG) Pt will be able to wgt shift in standing with normal trunk posture (no L trunk lean). STG Duration 05/22/21 [facility] Goal (LTG) Pt goal is to be able to walk without an assistive device at her prior level of function ( no hitch), and awareness of no L trunk lean on L LE stance phase. LTG Duration 06/22/21 One Impairment Lacks appropriate self care HEP Short Term Goal (STG) Pt will be educated in edema/ pain management of L hip. STG Duration 05/22/21 [facility] Goal (LTG) Pt will be independent in a self care HEP of L hip ROM and strengthening within limitations of ROM restriction (flex <120 deg's, no AB). LTG Duration 07/22/21 Assessment Summary Assessment Pt presents s/p L SHERIDAN revision 04/03/21. She ambulates into therapy independently using a FWW with increased trunk sway and mild to moderate wgt bearing into the UE's. The pt demonstrates weakness of the L hip due to pain and is held with her L hip AROM to movement restrictions of flexion <120 deg's and no abduction. The pt demonstrates decreased endurance and functional limitation of being able to step up/down one or more steps without UE support, making stepping up onto a curb impossible without UE support. The pt will benefit from skilled physical therapy to work towards above stated goals. Physical Therapy Plan Frequency and Duration Frequency of Treatment 1-2x/week Plan of Care Start Date 04/23/21 Plan of Care End Date 06/22/21 Therapeutic Interventions Therapeutic Interventions Gait Training,Home Exercise Program,Manual Therapy,Patient /Caregiver Education,Self-Care /Home Management,Soft Tissue Mobilization,Taping, Therapeutic Exercises Modalities Cold Pack/Ice Massage,Hot Packs Next Visit Focus/Plan Next Note Type Treatment Note Next Visit Plan Contact referring physician for precautions for the pt. L hip strengthening supine & standing (flex, isometric AD, extension). Contact MD regarding any other movement or strengthening restrictions. Gait training with FWW until pt is having less pain with gait and curb training. Issue HEP and decrease therapy to 1x/week.
--- NOTE | 2021-04-23 12:39 | PT.OPPOC ---
Physical, Occupational & Speech Therapy At [facility] Current Diagnoses Presence of unspecified artificial hip joint (04/23/21) Visit Care Team Role Provider Type FELIPE Lemos Primary Care Provider Advanced [place] Specialty: Medical Address: [address] [place] [address], [id number] Email: [email or web address] Xander Martinez MD Attending Provider Non-Staff Referring Provider Specialty: Orthopedics Address: [address] [place] [address], [place], [address] Email: Plan Of Care PT-OP-T Assessment and Plan Start: 04/19/21 17:48 Freq: Status: Active Protocol: Document 04/23/21 10:37 LRN (Rec: 04/23/21 12:31 LRN [id number]) Physical Therapy Assessment Rehab Potential Rehabilitation Potential Good Evaluation Complexity Number of Personal Factors/Comorbidities 3 or More Number of Body Systems Impaired 4 or More Clinical Presentation at Evaluation Evolving Impairments Impairments Activity Tolerance,Balance, Gait,Pain,Posture,ROM,Soft Tissue Mobility,Strength Goals Four Impairment Decreased endurance (gait 92' with walking sticks prior to fatigue) Short Term Goal (STG) Pt will demonstrate improved endurance with ability to walk 200+ feet with appropriate assistive device without L hip pain greater than 2-3/10 and without fatigue. STG Duration 05/22/21 Copier Technician Goal (LTG) Pt will improve balance to be able to walk on uneven surfaces with ability to independently correct for balance near loss, and to improve her confidence to hike by 50%. LTG Duration 06/22/21 Three Impairment Decreased ambulatory ability on level (endurance) and steps (curb, railing) Short Term Goal (STG) Pt will be able to independently go up/down a curb with an assistive device (cane, one crutch, or walking sticks). STG Duration 05/22/21 Longterm Goal (LTG) Pt will be able to walk up/ down stairs without handrail. LTG Duration 06/22/21 Two Impairment Gait requiring use of FWW Short Term Goal (STG) Pt will be able to wgt shift in standing with normal trunk posture (no L trunk lean). STG Duration 05/22/21 Longterm Goal (LTG) Pt goal is to be able to walk without an assistive device at her prior level of function ( no hitch), and awareness of no L trunk lean on L LE stance phase. LTG Duration 06/22/21 One Impairment Lacks appropriate self care HEP Short Term Goal (STG) Pt will be educated in edema/ pain management of L hip. STG Duration 05/22/21 Copier Technician Goal (LTG) Pt will be independent in a self care HEP of L hip ROM and strengthening within limitations of ROM restriction (flex <120 deg's, no AB). LTG Duration 07/22/21 Assessment Summary Assessment Pt presents s/p L SHERIDAN revision 04/03/21. She ambulates into therapy independently using a FWW with increased trunk sway and mild to moderate wgt bearing into the UE's. The pt demonstrates weakness of the L hip due to pain and is held with her L hip AROM to movement restrictions of flexion <120 deg's and no abduction. The pt demonstrates decreased endurance and functional limitation of being able to step up/down one or more steps without UE support, making stepping up onto a curb impossible without UE support. The pt will benefit from skilled physical therapy to work towards above stated goals. Physical Therapy Plan Frequency and Duration Frequency of Treatment 1-2x/week Plan of Care Start Date 04/23/21 Plan of Care End Date 06/22/21 Therapeutic Interventions Therapeutic Interventions Gait Training,Home Exercise Program,Manual Therapy,Patient /Caregiver Education,Self-Care /Home Management,Soft Tissue Mobilization,Taping, Therapeutic Exercises Modalities Cold Pack/Ice Massage,Hot Packs Next Visit Focus/Plan Next Note Type Treatment Note Next Visit Plan Contact referring physician for precautions for the pt. L hip strengthening supine & standing (flex, isometric AD, extension). Contact MD regarding any other movement or strengthening restrictions. Gait training with FWW until pt is having less pain with gait and curb training. Issue HEP and decrease therapy to 1x/week. Plan of Care Dates Plan of Care Start Date 04/23/21 Plan of Care End Date 07/22/21 Electronically Signed by: Marcy Spaulding, PT 04/23/21 [id number] Please Sign and Return: I have reviewed this Plan of Care and certify that the skilled therapy services above are required to meet the patient?s needs. Physician Signature Date Printed Name and Credentials Clinical Instructor Signature Printed Name and Credentials
--- NOTE | 2021-04-25 16:40 | PT.OTN ---
Current Diagnoses Muscle weakness (generalized) (04/25/21) Other abnormalities of gait and mobility (04/25/21) Presence of unspecified artificial hip joint (04/25/21) Physical Therapy Treatment Note PT-OP-A Visit Information Start: 04/19/21 17:48 Freq: Status: Active Protocol: Document 04/25/21 16:00 DCW (Rec: 04/25/21 16:40 DCW [id number]) Out-Patient Physical Therapy Visit Information Visit Information Visit Type Treatment Note Visit Note Shortened visit to preserve units Visit Start Time 16:00 Visit Stop Time 16:35 Total Visit Minutes 35 Visit Number 2 Number of MATERIALS HANDLING COORDINATOR Visits 0 Evaluation Information Evaluation Date 04/23/21 PT-OP-B Current Condition Start: 04/19/21 17:48 Freq: Status: Active Protocol: Document 04/23/21 10:37 LRN (Rec: 04/23/21 12:31 LRN [id number]) Current Condition History of Current Condition Onset Date 04/03/21 Current Complaints Pain in L hip rated 3-7/10, hovers around 5/10. History of Current Condition Per pt report: Original L SHERIDAN 02/2020 @ (Dr. Martinez), did rehab at [facility] ( ) and completed therapy, followed by R SHERIDAN in 04/2020 with rehab at finishing 2019 due to insurance limit. Tripped on cat beginning of March, injuring the L hip, resulting in L SHERIDAN revision and was discharged from hospital 04/05/21 Pt was discharged home without therapy home services. Pt's mother who lives close by was available to help pt during her recovery. Pt states she was told her femur and ball joint didn't break but needed to put in a larger claudy and wire her bone together. ( Pt reports prior hx of breaking the L greater trochanter with no treatment given). Prior Treatments and Tests Per pt, Precautions: Restriction: Flex <120 deg's and no abduction (records unavailable). Future Testing and Treatments Planned Next Ortho appt ~April,. Treatment Goals Patient/Caregiver Goals Pt goal is to be able to walk without a hitch, walk up/down stairs withpout handrail, take hike and have better balalnce and stamina. Prior Functional Status Baseline Function- ADL's Independent Baseline Function- Mobility Independent Baseline Function- Gait Stairs, could walk 4 blks. Baseline Function- Work/School Unemployed Baseline Function- Other Lives on bottom level appt. Mother helps her carry heavy things into house and cleans the floors. Current Functional Impairments (Reported) Functional Limitations- ADL's Walks around apartment, walks around [employer] is exhausting. Hip flexion of 100 deg's with sit to stand. Functional Limitations- Mobility/Gait Walks with FWW outside. No assistive device in apartment but is painful and hobbles. Functional Limitations- Other Stairs impossible, Walking painful, sleeping on sides painful. Told to put pillows between legs. Personal Factors Other Personal Factors That May Effect Lives alone with mother living Therapy/Recovery close by to help. Pt has extensive health history: blood clots, depression, dizziness, falls, Bilateral SHERIDAN's, kidney disease, liver disease, neuropathy, osteoporosis, stroke. 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 PT-OP-C Subjective Start: 04/19/21 17:48 Freq: Status: Active Protocol: Document 04/25/21 16:00 DCW (Rec: 04/25/21 16:40 DCW [id number]) OP-PT Subjective Patient Comments Patient Comments It's been more painful than the other ones, but I think they did more in there this time. Notes that her surgeon told her she can do gentle, non-weight bearing hip abduction. PT-OP-G Mobility & Gait Start: 04/19/21 17:48 Freq: Status: Active Protocol: Document 04/23/21 10:37 LRN (Rec: 04/23/21 12:31 LRN [id number]) OP Mobility Evaluation Bed Mobility Supine to and from Sit Independent, swings both legs (together) onto table . Transfers Sit to Stand Independent with use of hands. OP Gait Assessment Gait Gait Assistance Required: Independent Distance (Feet) 100 Able to Maintain Weight Bearing Status Yes During Gait Assistive Devices Assistive Device Front Wheeled Walker Gait Deviations General Gait Pattern Antalgic Factors Limiting Gait Function Factors Limiting Gait Function Decreased Activity Tolerance, Decreased Sensation,Decreased Strength,Pain,Poor Balance Comments Gait Comments Tried hiking canes. Stair Climbing Evaluation Comments Stair Climbing Comments Tried stairs using railing preferrably on the R side. Cant get up a curb without a hand assist of some kind. ....... PT-OP-J Posture/Palpation/Skin Start: 04/19/21 17:48 Freq: Status: Active Protocol: Document 04/23/21 10:37 LRN (Rec: 04/23/21 12:31 LRN [id number]) Posture Evaluation Position Standing Head/C-Spine Posture Neutral Position T-Spine Posture Flattened L-Spine Posture Flattened Shoulder Posture Neutral Scapula Posture (L) Winged,(R) Winged Comments Posture Comments Stands with trunk L leaning when wgt shifting onto LLE, normal trunk posture with wgt shift onto RLE. Palpation Assessment Location L hip Palpation Location L hip Palpation Findings Tenderness PT-OP-K Range of Motion Start: 04/19/21 17:48 Freq: Status: Active Protocol: Document 04/23/21 10:37 LRN (Rec: 04/23/21 12:31 LRN [id number]) Hip Goniometric Range of Motion Hip Right Active Testing Position Supine Flexion w/Knee Flexed 100 Abduction 20 Internal Rotation 30 External Rotation 55 Comments Uninvolved side with history or R SHERIDAN Left Active Testing Position Supine Flexion w/Knee Flexed 100 Knee Goniometric Range of Motion Knee Right Knee ROM WFL Yes Patient Position Supine Left Knee ROM WFL Yes Patient Position Supine PT-OP-M Strength Start: 04/19/21 17:48 Freq: Status: Active Protocol: Document 04/23/21 10:37 LRN (Rec: 04/23/21 12:31 LRN [id number]) Hip Strength Hip Manual Muscle Testing Right Flexion (L2) 5 Normal Extension (S1) 5 Normal Comments Deferred testing of other muscle groups due to L hip pain. Left Flexion (L2) 2+ Poor+ Extension (S1) 3- Fair- Comments Deferred testing of other muscle groups due to pain and precautioins limiting testing. Knee Strength Knee Manual Muscle Testing Right Comments Generally 5/5 Left Comments Generally 5/5 PT-OP-Q Treatments Start: 04/19/21 17:48 Freq: Status: Active Protocol: Document 04/25/21 16:00 DCW (Rec: 04/25/21 16:40 DCW [id number]) Cardio Equipment Recumbent Elliptical (Shaka) Duration (Minutes) 5 Resistance 1 Seat Position 7 Gym Equipment Shuttle Recovery Unilateral Squats Resistance 37# R Shuttle Recovery Platform Stable Reps/Time Pt didn't feel comfortable /c L Bilateral Squats Resistance 50# Shuttle Recovery Platform Stable Therapeutic Exercises Supine Exercises 2 Supine Exercise Name Heel-slide Side bilateral 1 Supine Exercise Name SLR Side bilateral Standing Exercises 3 Standing Exercise Name Toe-taps Side bilateral Resistance 2# Equipment Used 6 step 2 Standing Exercise Name Hamstring curls Side bilateral Resistance 2# 1 Standing Exercise Name Hip Abduction Side bilateral Equipment Used // bars Other Exercises 1 Other Exercise Name Step-ups Side bilateral Equipment Used 6 step PT-OP-T Assessment and Plan Start: 04/19/21 17:48 Freq: Status: Active Protocol: Document 04/25/21 16:00 DCW (Rec: 04/25/21 16:40 DCW [id number]) Physical Therapy Assessment Goals Four Impairment Decreased endurance (gait 92' with walking sticks prior to fatigue) Short Term Goal (STG) Pt will demonstrate improved endurance with ability to walk 200+ feet with appropriate assistive device without L hip pain greater than 2-3/10 and without fatigue. STG Duration 05/22/21 Longterm Goal (LTG) Pt will improve balance to be able to walk on uneven surfaces with ability to independently correct for balance near loss, and to improve her confidence to hike by 50%. LTG Duration 06/22/21 Three Impairment Decreased ambulatory ability on level (endurance) and steps (curb, railing) Short Term Goal (STG) Pt will be able to independently go up/down a curb with an assistive device (cane, one crutch, or walking sticks). STG Duration 05/22/21 Longterm Goal (LTG) Pt will be able to walk up/ down stairs without handrail. LTG Duration 06/22/21 Two Impairment Gait requiring use of FWW Short Term Goal (STG) Pt will be able to wgt shift in standing with normal trunk posture (no L trunk lean). STG Duration 05/22/21 Longterm Goal (LTG) Pt goal is to be able to walk without an assistive device at her prior level of function ( no hitch), and awareness of no L trunk lean on L LE stance phase. LTG Duration 06/22/21 One Impairment Lacks appropriate self care HEP Short Term Goal (STG) Pt will be educated in edema/ pain management of L hip. STG Duration 05/22/21 Longterm Goal (LTG) Pt will be independent in a self care HEP of L hip ROM and strengthening within limitations of ROM restriction (flex <120 deg's, no AB). LTG Duration 07/22/21 Assessment Summary Assessment Pt demonstrates significant weakness in left leg, obvious mental distrust with left leg weight bearing, uncomfortable even trying 12# on leg press. Is looking a little bit better ambulating without FWW, although still a very clear limp. Physical Therapy Plan Frequency and Duration Frequency of Treatment 1-2x/week Duration of Treatment 60 days Plan of Care Start Date 04/23/21 Plan of Care End Date 06/22/21 Therapeutic Interventions Therapeutic Interventions Gait Training,Home Exercise Program,Manual Therapy,Patient /Caregiver Education,Self-Care /Home Management,Soft Tissue Mobilization,Taping, Therapeutic Exercises Modalities Cold Pack/Ice Massage,Hot Packs Next Visit Focus/Plan Next Note Type Treatment Note Next Visit Plan Shorten treatment time to <38 minutes, use only 2 units each session to extend benefit. Continue with post-op strengthening, gait, and mobility.
--- NOTE | 2021-05-01 11:09 | PT.OTN ---
Current Diagnoses Muscle weakness (generalized) (05/01/21) Other abnormalities of gait and mobility (05/01/21) Presence of unspecified artificial hip joint (05/01/21) Physical Therapy Treatment Note PT-OP-A Visit Information Start: 04/19/21 17:48 Freq: Status: Active Protocol: Document 05/01/21 10:30 DCW (Rec: 05/01/21 11:09 DCW [id number]) Out-Patient Physical Therapy Visit Information Visit Information Visit Type Treatment Note Visit Note Shortened visit to preserve units Visit Start Time 10:30 Visit Stop Time 11:05 Total Visit Minutes 35 Visit Number 3 Number of BANANA HANDLER Visits 0 Evaluation Information Evaluation Date 04/23/21 Precautions Precautions Medical records review: Anorexia, Neuropathy, R ankle pain, alcoholism in remission, Cirrhosis, hx of L foot/ankle /knee injury, hx of R foot/ ankle injury and R SHERIDAN. PT-OP-B Current Condition Start: 04/19/21 17:48 Freq: Status: Active Protocol: Document 04/23/21 10:37 LRN (Rec: 04/23/21 12:31 LRN [id number]) Current Condition History of Current Condition Onset Date 04/03/21 Current Complaints Pain in L hip rated 3-7/10, hovers around 5/10. History of Current Condition Per pt report: Original L SHERIDAN 02/2020 @ (Dr. Martinez), did rehab at [facility] ( ) and completed therapy, followed by R SHERIDAN in 04/2020 with rehab at finishing 2019 due to insurance limit. Tripped on cat beginning of March, injuring the L hip, resulting in L SHERIDAN revision and was discharged from hospital 04/05/21 Pt was discharged home without therapy home services. Pt's mother who lives close by was available to help pt during her recovery. Pt states she was told her femur and ball joint didn't break but needed to put in a larger claudy and wire her bone together. ( Pt reports prior hx of breaking the L greater trochanter with no treatment given). Prior Treatments and Tests Per pt, Precautions: Restriction: Flex <120 deg's and no abduction (records unavailable). Future Testing and Treatments Planned Next Ortho appt ~April,. Treatment Goals Patient/Caregiver Goals Pt goal is to be able to walk without a hitch, walk up/down stairs withpout handrail, take hike and have better balalnce and stamina. Prior Functional Status Baseline Function- ADL's Independent Baseline Function- Mobility Independent Baseline Function- Gait Stairs, could walk 4 blks. Baseline Function- Work/School Unemployed Baseline Function- Other Lives on bottom level appt. Mother helps her carry heavy things into house and cleans the floors. Current Functional Impairments (Reported) Functional Limitations- ADL's Walks around apartment, walks around [employer] is exhausting. Hip flexion of 100 deg's with sit to stand. Functional Limitations- Mobility/Gait Walks with FWW outside. No assistive device in apartment but is painful and hobbles. Functional Limitations- Other Stairs impossible, Walking painful, sleeping on sides painful. Told to put pillows between legs. Personal Factors Other Personal Factors That May Effect Lives alone with mother living Therapy/Recovery close by to help. Pt has extensive health history: blood clots, depression, dizziness, falls, Bilateral SHERIDAN's, kidney disease, liver disease, neuropathy, osteoporosis, stroke. 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 PT-OP-C Subjective Start: 04/19/21 17:48 Freq: Status: Active Protocol: Document 05/01/21 10:30 DCW (Rec: 05/01/21 11:09 DCW [id number]) OP-PT Subjective Patient Comments Patient Comments I was a little sore following her appointment last week. PT-OP-G Mobility & Gait Start: 04/19/21 17:48 Freq: Status: Active Protocol: Document 04/23/21 10:37 LRN (Rec: 04/23/21 12:31 LRN [id number]) OP Mobility Evaluation Bed Mobility Supine to and from Sit Independent, swings both legs (together) onto table . Transfers Sit to Stand Independent with use of hands. OP Gait Assessment Gait Gait Assistance Required: Independent Distance (Feet) 100 Able to Maintain Weight Bearing Status Yes During Gait Assistive Devices Assistive Device Front Wheeled Walker Gait Deviations General Gait Pattern Antalgic Factors Limiting Gait Function Factors Limiting Gait Function Decreased Activity Tolerance, Decreased Sensation,Decreased Strength,Pain,Poor Balance Comments Gait Comments Tried hiking canes. Stair Climbing Evaluation Comments Stair Climbing Comments Tried stairs using railing preferrably on the R side. Cant get up a curb without a hand assist of some kind. ....... PT-OP-J Posture/Palpation/Skin Start: 04/19/21 17:48 Freq: Status: Active Protocol: Document 04/23/21 10:37 LRN (Rec: 04/23/21 12:31 LRN [id number]) Posture Evaluation Position Standing Head/C-Spine Posture Neutral Position T-Spine Posture Flattened L-Spine Posture Flattened Shoulder Posture Neutral Scapula Posture (L) Winged,(R) Winged Comments Posture Comments Stands with trunk L leaning when wgt shifting onto LLE, normal trunk posture with wgt shift onto RLE. Palpation Assessment Location L hip Palpation Location L hip Palpation Findings Tenderness PT-OP-K Range of Motion Start: 04/19/21 17:48 Freq: Status: Active Protocol: Document 04/23/21 10:37 LRN (Rec: 04/23/21 12:31 LRN [id number]) Hip Goniometric Range of Motion Hip Right Active Testing Position Supine Flexion w/Knee Flexed 100 Abduction 20 Internal Rotation 30 External Rotation 55 Comments Uninvolved side with history or R SHERIDAN Left Active Testing Position Supine Flexion w/Knee Flexed 100 Knee Goniometric Range of Motion Knee Right Knee ROM WFL Yes Patient Position Supine Left Knee ROM WFL Yes Patient Position Supine PT-OP-M Strength Start: 04/19/21 17:48 Freq: Status: Active Protocol: Document 04/23/21 10:37 LRN (Rec: 04/23/21 12:31 LRN [id number]) Hip Strength Hip Manual Muscle Testing Right Flexion (L2) 5 Normal Extension (S1) 5 Normal Comments Deferred testing of other muscle groups due to L hip pain. Left Flexion (L2) 2+ Poor+ Extension (S1) 3- Fair- Comments Deferred testing of other muscle groups due to pain and precautioins limiting testing. Knee Strength Knee Manual Muscle Testing Right Comments Generally 5/5 Left Comments Generally 5/5 PT-OP-Q Treatments Start: 04/19/21 17:48 Freq: Status: Active Protocol: Document 05/01/21 10:30 DCW (Rec: 05/01/21 11:09 DCW [id number]) Cardio Equipment Recumbent Elliptical (Biodex) Duration (Minutes) 5 Resistance 4 Seat Position 8 Gym Equipment Shuttle Recovery Unilateral Squats Resistance 25# R, 12# L Shuttle Recovery Platform Stable Bilateral Squats Resistance 50# Shuttle Recovery Platform Stable Therapeutic Exercises Supine Exercises 3 Supine Exercise Name Windshield wipers Side bilateral 2 Supine Exercise Name Heel-slide Side bilateral Standing Exercises 3 Standing Exercise Name Toe-taps Side bilateral Resistance 4# Equipment Used 6 step 2 Standing Exercise Name Hamstring curls Side bilateral Resistance 4# 1 Standing Exercise Name Hip Abduction Side bilateral Equipment Used // bars Other Exercises 1 Other Exercise Name Step-ups Side bilateral Equipment Used 6 step PT-OP-T Assessment and Plan Start: 04/19/21 17:48 Freq: Status: Active Protocol: Document 05/01/21 10:30 DCW (Rec: 05/01/21 11:09 DCW [id number]) Physical Therapy Assessment Impairments Impairments Activity Tolerance,Balance, Gait,Pain,Posture,ROM,Soft Tissue Mobility,Strength Goals Four Impairment Decreased endurance (gait 92' with walking sticks prior to fatigue) Short Term Goal (STG) Pt will demonstrate improved endurance with ability to walk 200+ feet with appropriate assistive device without L hip pain greater than 2-3/10 and without fatigue. STG Duration 05/22/21 In Mold Coater Goal (LTG) Pt will improve balance to be able to walk on uneven surfaces with ability to independently correct for balance near loss, and to improve her confidence to hike by 50%. LTG Duration 06/22/21 Three Impairment Decreased ambulatory ability on level (endurance) and steps (curb, railing) Short Term Goal (STG) Pt will be able to independently go up/down a curb with an assistive device (cane, one crutch, or walking sticks). STG Duration 05/22/21 In Mold Coater Goal (LTG) Pt will be able to walk up/ down stairs without handrail. LTG Duration 06/22/21 Two Impairment Gait requiring use of FWW Short Term Goal (STG) Pt will be able to wgt shift in standing with normal trunk posture (no L trunk lean). STG Duration 05/22/21 Senior Care Goal (LTG) Pt goal is to be able to walk without an assistive device at her prior level of function ( no hitch), and awareness of no L trunk lean on L LE stance phase. LTG Duration 06/22/21 One Impairment Lacks appropriate self care HEP Short Term Goal (STG) Pt will be educated in edema/ pain management of L hip. STG Duration 05/22/21 In [place] Coater Goal (LTG) Pt will be independent in a self care HEP of L hip ROM and strengthening within limitations of ROM restriction (flex <120 deg's, no AB). LTG Duration 07/22/21 Assessment Summary Assessment Pt showing some slight increase in ability for L weight-bearing and stability, although still hesitant. Physical Therapy Plan Frequency and Duration Frequency of Treatment 1-2x/week Duration of Treatment 60 days Plan of Care Start Date 04/23/21 Plan of Care End Date 06/22/21 Therapeutic Interventions Therapeutic Interventions Gait Training,Home Exercise Program,Manual Therapy,Patient /Caregiver Education,Self-Care /Home Management,Soft Tissue Mobilization,Taping, Therapeutic Exercises Modalities Cold Pack/Ice Massage,Hot Packs Next Visit Focus/Plan Next Note Type Treatment Note Next Visit Plan Shorten treatment time to <38 minutes, use only 2 units each session to extend benefit. Continue with post-op strengthening, gait, and mobility.
--- NOTE | 2021-05-08 12:03 | PT.OTN ---
Current Diagnoses Muscle weakness (generalized) (05/08/21) Other abnormalities of gait and mobility (05/08/21) Presence of unspecified artificial hip joint (05/08/21) Physical Therapy Treatment Note PT-OP-A Visit Information Start: 04/19/21 17:48 Freq: Status: Active Protocol: Document 05/08/21 11:23 MA (Rec: 05/08/21 12:03 MA [id number]) Out-Patient Physical Therapy Visit Information Visit Information Visit Type Treatment Note Visit Note Shortened visit to preserve units Visit Start Time 11:20 Visit Stop Time 11:55 Total Visit Minutes 35 Visit Number 4 Number of MMD UNIT TEACHER Visits 1 Precautions Precautions Medical records review: Anorexia, Neuropathy, R ankle pain, alcoholism in remission, Cirrhosis, hx of L foot/ankle /knee injury, hx of R foot/ ankle injury and R SHERIDAN. PT-OP-B Current Condition Start: 04/19/21 17:48 Freq: Status: Active Protocol: Document 04/23/21 10:37 LRN (Rec: 04/23/21 12:31 LRN [id number]) Current Condition History of Current Condition Onset Date 04/03/21 Current Complaints Pain in L hip rated 3-7/10, hovers around 5/10. History of Current Condition Per pt report: Original L SHERIDAN 02/2020 @ (Dr. Martinez), did rehab at [facility] ( ) and completed therapy, followed by R SHERIDAN in 04/2020 with rehab at finishing 2019 due to insurance limit. Tripped on cat beginning of March, injuring the L hip, resulting in L SHERIDAN revision and was discharged from hospital 04/05/21 Pt was discharged home without therapy home services. Pt's mother who lives close by was available to help pt during her recovery. Pt states she was told her femur and ball joint didn't break but needed to put in a larger claudy and wire her bone together. ( Pt reports prior hx of breaking the L greater trochanter with no treatment given). Prior Treatments and Tests Per pt, Precautions: Restriction: Flex <120 deg's and no abduction (records unavailable). Future Testing and Treatments Planned Next Ortho appt ~April,. Treatment Goals Patient/Caregiver Goals Pt goal is to be able to walk without a hitch, walk up/down stairs withpout handrail, take hike and have better balalnce and stamina. Prior Functional Status Baseline Function- ADL's Independent Baseline Function- Mobility Independent Baseline Function- Gait Stairs, could walk 4 blks. Baseline Function- Work/School Unemployed Baseline Function- Other Lives on bottom level appt. Mother helps her carry heavy things into house and cleans the floors. Current Functional Impairments (Reported) Functional Limitations- ADL's Walks around apartment, walks around [employer] is exhausting. Hip flexion of 100 deg's with sit to stand. Functional Limitations- Mobility/Gait Walks with FWW outside. No assistive device in apartment but is painful and hobbles. Functional Limitations- Other Stairs impossible, Walking painful, sleeping on sides painful. Told to put pillows between legs. Personal Factors Other Personal Factors That May Effect Lives alone with mother living Therapy/Recovery close by to help. Pt has extensive health history: blood clots, depression, dizziness, falls, Bilateral SHERIDAN's, kidney disease, liver disease, neuropathy, osteoporosis, stroke. 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 PT-OP-C Subjective Start: 04/19/21 17:48 Freq: Status: Active Protocol: Document 05/08/21 11:23 MA (Rec: 05/08/21 12:03 MA [id number]) OP-PT Subjective Patient Comments Patient Comments My hip feels about the same as last week PT-OP-G Mobility & Gait Start: 04/19/21 17:48 Freq: Status: Active Protocol: Document 04/23/21 10:37 LRN (Rec: 04/23/21 12:31 LRN [id number]) OP Mobility Evaluation Bed Mobility Supine to and from Sit Independent, swings both legs (together) onto table . Transfers Sit to Stand Independent with use of hands. OP Gait Assessment Gait Gait Assistance Required: Independent Distance (Feet) 100 Able to Maintain Weight Bearing Status Yes During Gait Assistive Devices Assistive Device Front Wheeled Walker Gait Deviations General Gait Pattern Antalgic Factors Limiting Gait Function Factors Limiting Gait Function Decreased Activity Tolerance, Decreased Sensation,Decreased Strength,Pain,Poor Balance Comments Gait Comments Tried hiking canes. Stair Climbing Evaluation Comments Stair Climbing Comments Tried stairs using railing preferrably on the R side. Cant get up a curb without a hand assist of some kind. ....... PT-OP-J Posture/Palpation/Skin Start: 04/19/21 17:48 Freq: Status: Active Protocol: Document 04/23/21 10:37 LRN (Rec: 04/23/21 12:31 LRN [id number]) Posture Evaluation Position Standing Head/C-Spine Posture Neutral Position T-Spine Posture Flattened L-Spine Posture Flattened Shoulder Posture Neutral Scapula Posture (L) Winged,(R) Winged Comments Posture Comments Stands with trunk L leaning when wgt shifting onto LLE, normal trunk posture with wgt shift onto RLE. Palpation Assessment Location L hip Palpation Location L hip Palpation Findings Tenderness PT-OP-K Range of Motion Start: 04/19/21 17:48 Freq: Status: Active Protocol: Document 04/23/21 10:37 LRN (Rec: 04/23/21 12:31 LRN [id number]) Hip Goniometric Range of Motion Hip Right Active Testing Position Supine Flexion w/Knee Flexed 100 Abduction 20 Internal Rotation 30 External Rotation 55 Comments Uninvolved side with history or R SHERIDAN Left Active Testing Position Supine Flexion w/Knee Flexed 100 Knee Goniometric Range of Motion Knee Right Knee ROM WFL Yes Patient Position Supine Left Knee ROM WFL Yes Patient Position Supine PT-OP-M Strength Start: 04/19/21 17:48 Freq: Status: Active Protocol: Document 04/23/21 10:37 LRN (Rec: 04/23/21 12:31 LRN [id number]) Hip Strength Hip Manual Muscle Testing Right Flexion (L2) 5 Normal Extension (S1) 5 Normal Comments Deferred testing of other muscle groups due to L hip pain. Left Flexion (L2) 2+ Poor+ Extension (S1) 3- Fair- Comments Deferred testing of other muscle groups due to pain and precautioins limiting testing. Knee Strength Knee Manual Muscle Testing Right Comments Generally 5/5 Left Comments Generally 5/5 PT-OP-Q Treatments Start: 04/19/21 17:48 Freq: Status: Active Protocol: Document 05/08/21 11:23 MA (Rec: 05/08/21 12:03 MA [id number]) Cardio Equipment Recumbent Elliptical ([place]) Duration (Minutes) 5 Resistance 4 Seat Position 7 Gym Equipment Shuttle Recovery Unilateral Squats Resistance 25# R, 12# L Shuttle Recovery Platform Stable Reps/Time 2x10 Bilateral Squats Resistance 50# Shuttle Recovery Platform Stable Reps/Time 2x10 Therapeutic Exercises Supine Exercises 2 Supine Exercise Name Heel-slide Side bilateral Reps/Minutes 10x2 1 Supine Exercise Name SLR Side bilateral Reps/Minutes 10x2 Standing Exercises Hip Ext Side bilateral Reps/Minutes 10x2 3 Standing Exercise Name Toe-taps Side bilateral Resistance 4# Equipment Used 6 step Reps/Minutes 20x2 2 Standing Exercise Name Hamstring curls Side bilateral Resistance 4# Reps/Minutes 10x2 Other Exercises 1 Other Exercise Name Step-ups Side bilateral Equipment Used 6 step Gait Training Gait Activity 2 Comments fwd walking focusing on increasing LLE stance time and improving trendelenberg gait PT-OP-T Assessment and Plan Start: 04/19/21 17:48 Freq: Status: Active Protocol: Document 05/08/21 11:23 MA (Rec: 05/08/21 12:03 MA [id number]) Physical Therapy Assessment Goals Four Impairment Decreased endurance (gait 92' with walking sticks prior to fatigue) Short Term Goal (STG) Pt will demonstrate improved endurance with ability to walk 200+ feet with appropriate assistive device without L hip pain greater than 2-3/10 and without fatigue. STG Duration 05/22/21 Criminal Justice Lawyer Goal (LTG) Pt will improve balance to be able to walk on uneven surfaces with ability to independently correct for balance near loss, and to improve her confidence to hike by 50%. LTG Duration 06/22/21 Three Impairment Decreased ambulatory ability on level (endurance) and steps (curb, railing) Short Term Goal (STG) Pt will be able to independently go up/down a curb with an assistive device (cane, one crutch, or walking sticks). STG Duration 05/22/21 Retirement Goal (LTG) Pt will be able to walk up/ down stairs without handrail. LTG Duration 06/22/21 Two Impairment Gait requiring use of FWW Short Term Goal (STG) Pt will be able to wgt shift in standing with normal trunk posture (no L trunk lean). STG Duration 05/22/21 Retirement Goal (LTG) Pt goal is to be able to walk without an assistive device at her prior level of function ( no hitch), and awareness of no L trunk lean on L LE stance phase. LTG Duration 06/22/21 One Impairment Lacks appropriate self care HEP Short Term Goal (STG) Pt will be educated in edema/ pain management of L hip. STG Duration 05/22/21 Criminal Justice Lawyer Goal (LTG) Pt will be independent in a self care HEP of L hip ROM and strengthening within limitations of ROM restriction (flex <120 deg's, no AB). LTG Duration 07/22/21 Assessment Summary Assessment Pt is worried about her gait and feels her hip is popping out to the side. Discussed with pt glute med's role in stabilizing pelvis and how it still needs to heal from SHERIDAN before we can work on strengthening more. She walks with minor trendelenburg gait but gait improves if she is actively thinking about her walk. Encouraged pt to work on gait with her walker, increasing L stance time and avoiding lateral sheer of pelvis. Physical Therapy Plan Frequency and Duration Frequency of Treatment 1-2x/week Duration of Treatment 60 days Plan of Care Start Date 04/23/21 Plan of Care End Date 06/22/21 Therapeutic Interventions Therapeutic Interventions Gait Training,Home Exercise Program,Manual Therapy,Patient /Caregiver Education,Self-Care /Home Management,Soft Tissue Mobilization,Taping, Therapeutic Exercises Modalities Cold Pack/Ice Massage,Hot Packs Next Visit Focus/Plan Next Note Type Treatment Note Next Visit Plan Shorten treatment time to <38 minutes, use only 2 units each session to extend benefit. Focus on gait next session Continue with post-op strengthening, gait, and mobility.
--- NOTE | 2021-05-14 08:32 | PT-OP ANOTE ---
06/14/21: Voicemail msg received from Dr Martinez's office from ?Augustin, , option 2. Pt's movement PRECAUTIONS: No flexion >120 deg's, No hyper ext, No ER. LIFELONG PRECAUTIONS: No hyper ext, No IR, No AD. Gt is WBAT.
--- NOTE | 2021-05-16 11:54 | PT.OTN ---
Current Diagnoses Muscle weakness (generalized) (05/16/21) Other abnormalities of gait and mobility (05/16/21) Presence of unspecified artificial hip joint (05/16/21) Physical Therapy Treatment Note PT-OP-A Visit Information Start: 04/19/21 17:48 Freq: Status: Active Protocol: Document 05/16/21 11:18 DCW (Rec: 05/16/21 11:53 DCW [id number]) Out-Patient Physical Therapy Visit Information Visit Information Visit Type Treatment Note Visit Note Shortened visit to preserve units Visit Start Time 11:18 Visit Stop Time 11:50 Total Visit Minutes 32 Visit Number 5 Number of MERCHANT MARINER Visits 0 Evaluation Information Evaluation Date 04/23/21 Precautions Precautions Medical records review: Anorexia, Neuropathy, R ankle pain, alcoholism in remission, Cirrhosis, hx of L foot/ankle /knee injury, hx of R foot/ ankle injury and R SHERIDAN. PT-OP-B Current Condition Start: 04/19/21 17:48 Freq: Status: Active Protocol: Document 04/23/21 10:37 LRN (Rec: 04/23/21 12:31 LRN [id number]) Current Condition History of Current Condition Onset Date 04/03/21 Current Complaints Pain in L hip rated 3-7/10, hovers around 5/10. History of Current Condition Per pt report: Original L SHERIDAN 02/2020 @ (Dr. Martinez), did rehab at [facility] ( ) and completed therapy, followed by R SHERIDAN in 04/2020 with rehab at finishing 2019 due to insurance limit. Tripped on cat beginning of March, injuring the L hip, resulting in L SHERIDAN revision and was discharged from hospital 04/05/21 Pt was discharged home without therapy home services. Pt's mother who lives close by was available to help pt during her recovery. Pt states she was told her femur and ball joint didn't break but needed to put in a larger claudy and wire her bone together. ( Pt reports prior hx of breaking the L greater trochanter with no treatment given). Prior Treatments and Tests Per pt, Precautions: Restriction: Flex <120 deg's and no abduction (records unavailable). Future Testing and Treatments Planned Next Ortho appt ~April,. Treatment Goals Patient/Caregiver Goals Pt goal is to be able to walk without a hitch, walk up/down stairs withpout handrail, take hike and have better balalnce and stamina. Prior Functional Status Baseline Function- ADL's Independent Baseline Function- Mobility Independent Baseline Function- Gait Stairs, could walk 4 blks. Baseline Function- Work/School Unemployed Baseline Function- Other Lives on bottom level appt. Mother helps her carry heavy things into house and cleans the floors. Current Functional Impairments (Reported) Functional Limitations- ADL's Walks around apartment, walks around [employer] is exhausting. Hip flexion of 100 deg's with sit to stand. Functional Limitations- Mobility/Gait Walks with FWW outside. No assistive device in apartment but is painful and hobbles. Functional Limitations- Other Stairs impossible, Walking painful, sleeping on sides painful. Told to put pillows between legs. Personal Factors Other Personal Factors That May Effect Lives alone with mother living Therapy/Recovery close by to help. Pt has extensive health history: blood clots, depression, dizziness, falls, Bilateral SHERIDAN's, kidney disease, liver disease, neuropathy, osteoporosis, stroke. 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 PT-OP-C Subjective Start: 04/19/21 17:48 Freq: Status: Active Protocol: Document 05/16/21 11:18 DCW (Rec: 05/16/21 11:53 DCW [id number]) OP-PT Subjective Patient Comments Patient Comments Pt sees her surgeon for her final post-op appointment tomorrow, wants to ask him about her abduction limitations. Pt has transitions from her FWW to a SPC, feels secure with it. PT-OP-G Mobility & Gait Start: 04/19/21 17:48 Freq: Status: Active Protocol: Document 04/23/21 10:37 LRN (Rec: 04/23/21 12:31 LRN [id number]) OP Mobility Evaluation Bed Mobility Supine to and from Sit Independent, swings both legs (together) onto table . Transfers Sit to Stand Independent with use of hands. OP Gait Assessment Gait Gait Assistance Required: Independent Distance (Feet) 100 Able to Maintain Weight Bearing Status Yes During Gait Assistive Devices Assistive Device Front Wheeled Walker Gait Deviations General Gait Pattern Antalgic Factors Limiting Gait Function Factors Limiting Gait Function Decreased Activity Tolerance, Decreased Sensation,Decreased Strength,Pain,Poor Balance Comments Gait Comments Tried hiking canes. Stair Climbing Evaluation Comments Stair Climbing Comments Tried stairs using railing preferrably on the R side. Cant get up a curb without a hand assist of some kind. ....... PT-OP-J Posture/Palpation/Skin Start: 04/19/21 17:48 Freq: Status: Active Protocol: Document 04/23/21 10:37 LRN (Rec: 04/23/21 12:31 LRN [id number]) Posture Evaluation Position Standing Head/C-Spine Posture Neutral Position T-Spine Posture Flattened L-Spine Posture Flattened Shoulder Posture Neutral Scapula Posture (L) Winged,(R) Winged Comments Posture Comments Stands with trunk L leaning when wgt shifting onto LLE, normal trunk posture with wgt shift onto RLE. Palpation Assessment Location L hip Palpation Location L hip Palpation Findings Tenderness PT-OP-K Range of Motion Start: 04/19/21 17:48 Freq: Status: Active Protocol: Document 04/23/21 10:37 LRN (Rec: 04/23/21 12:31 LRN [id number]) Hip Goniometric Range of Motion Hip Right Active Testing Position Supine Flexion w/Knee Flexed 100 Abduction 20 Internal Rotation 30 External Rotation 55 Comments Uninvolved side with history or R SHERIDAN Left Active Testing Position Supine Flexion w/Knee Flexed 100 Knee Goniometric Range of Motion Knee Right Knee ROM WFL Yes Patient Position Supine Left Knee ROM WFL Yes Patient Position Supine PT-OP-M Strength Start: 04/19/21 17:48 Freq: Status: Active Protocol: Document 04/23/21 10:37 LRN (Rec: 04/23/21 12:31 LRN [id number]) Hip Strength Hip Manual Muscle Testing Right Flexion (L2) 5 Normal Extension (S1) 5 Normal Comments Deferred testing of other muscle groups due to L hip pain. Left Flexion (L2) 2+ Poor+ Extension (S1) 3- Fair- Comments Deferred testing of other muscle groups due to pain and precautioins limiting testing. Knee Strength Knee Manual Muscle Testing Right Comments Generally 5/5 Left Comments Generally 5/5 PT-OP-Q Treatments Start: 04/19/21 17:48 Freq: Status: Active Protocol: Document 05/16/21 11:18 DCW (Rec: 05/16/21 11:53 DCW [id number]) Cardio Equipment Recumbent Elliptical ([place]) Duration (Minutes) 5 Resistance 5 Seat Position 7 Gym Equipment Shuttle Recovery Unilateral Squats Resistance 37# R, 12# L Shuttle Recovery Platform Stable Reps/Time x10 R, x15 L Bilateral Squats Resistance 50# Shuttle Recovery Platform Stable Reps/Time 2x10 Therapeutic Exercises Supine Exercises 4 Supine Exercise Name SAQ Side bilateral Resistance 2# 2 Supine Exercise Name Heel-slide Side bilateral Reps/Minutes 10x2 1 Supine Exercise Name SLR Side bilateral Resistance 2# Reps/Minutes 10x2 Standing Exercises Hip Ext Side bilateral Reps/Minutes 10x2 3 Standing Exercise Name Toe-taps Side bilateral Resistance 5# Equipment Used 6 step Reps/Minutes 20x2 2 Standing Exercise Name Hamstring curls Side bilateral Resistance 5# Reps/Minutes x20 1 Standing Exercise Name Hip Abduction Side bilateral Equipment Used // bars Other Exercises 1 Other Exercise Name Step-ups Side bilateral Equipment Used 6 step Therapeutic Activity Therapeutic Activity 1 Name Sit<->Stand Comments Pt only able to perform without UE support when table raised to 21 Neuro Re-Education Treatment Balance Activities tandem Details Tandem stance Equipment // bars 1 Details Foam stance Surface Glez foam Equipment // bars Comments EO/EC PT-OP-T Assessment and Plan Start: 04/19/21 17:48 Freq: Status: Active Protocol: Document 05/16/21 11:18 DCW (Rec: 05/16/21 11:53 DCW [id number]) Physical Therapy Assessment Impairments Impairments Activity Tolerance,Balance, Gait,Pain,Posture,ROM,Soft Tissue Mobility,Strength Goals Four Impairment Decreased endurance (gait 92' with walking sticks prior to fatigue) Short Term Goal (STG) Pt will demonstrate improved endurance with ability to walk 200+ feet with appropriate assistive device without L hip pain greater than 2-3/10 and without fatigue. STG Duration 05/22/21 Fdc Goal (LTG) Pt will improve balance to be able to walk on uneven surfaces with ability to independently correct for balance near loss, and to improve her confidence to hike by 50%. LTG Duration 06/22/21 Three Impairment Decreased ambulatory ability on level (endurance) and steps (curb, railing) Short Term Goal (STG) Pt will be able to independently go up/down a curb with an assistive device (cane, one crutch, or walking sticks). STG Duration 05/22/21 Fdc Goal (LTG) Pt will be able to walk up/ down stairs without handrail. LTG Duration 06/22/21 Two Impairment Gait requiring use of FWW Short Term Goal (STG) Pt will be able to wgt shift in standing with normal trunk posture (no L trunk lean). STG Duration 05/22/21 Ski Topper Goal (LTG) Pt goal is to be able to walk without an assistive device at her prior level of function ( no hitch), and awareness of no L trunk lean on L LE stance phase. LTG Duration 06/22/21 One Impairment Lacks appropriate self care HEP Short Term Goal (STG) Pt will be educated in edema/ pain management of L hip. STG Duration 05/22/21 Ski Topper Goal (LTG) Pt will be independent in a self care HEP of L hip ROM and strengthening within limitations of ROM restriction (flex <120 deg's, no AB). LTG Duration 07/22/21 Assessment Summary Assessment Pt moving much more comfortably on her left leg, trusting the left side with increased weight-bearing. Still slight trendelenberg gait pattern using a SPC, but much improved compared to prior weeks. Physical Therapy Plan Frequency and Duration Frequency of Treatment 1-2x/week Duration of Treatment 60 days Plan of Care Start Date 04/23/21 Plan of Care End Date 06/22/21 Therapeutic Interventions Therapeutic Interventions Gait Training,Home Exercise Program,Manual Therapy,Patient /Caregiver Education,Self-Care /Home Management,Soft Tissue Mobilization,Taping, Therapeutic Exercises Modalities Cold Pack/Ice Massage,Hot Packs Next Visit Focus/Plan Next Note Type Treatment Note Next Visit Plan Shorten treatment time to <38 minutes, use only 2 units each session to extend benefit. Focus on gait next session Continue with post-op strengthening, gait, and mobility.
--- NOTE | 2021-05-25 10:57 | PT.OTN ---
Current Diagnoses Muscle weakness (generalized) (05/25/21) Other abnormalities of gait and mobility (05/25/21) Presence of unspecified artificial hip joint (05/25/21) Physical Therapy Treatment Note PT-OP-A Visit Information Start: 04/19/21 17:48 Freq: Status: Active Protocol: Document 05/25/21 09:51 LRN (Rec: 05/25/21 10:57 LRN [id number]) Out-Patient Physical Therapy Visit Information Visit Information Visit Type Treatment Note Visit Note Shortened visit to preserve units. MVMT RESTRICTIONS IN ADMIN NOTE 05/14/21. Pt hip AB only against gravity. Visit Start Time 09:51 Visit Stop Time 10:21 Total Visit Minutes 30 Visit Number 6 Evaluation Information Evaluation Date 04/23/21 Precautions Precautions Medical records review: Anorexia, Neuropathy, R ankle pain, alcoholism in remission, Cirrhosis, hx of L foot/ankle /knee injury, hx of R foot/ ankle injury and R SHERIDAN. PT-OP-B Current Condition Start: 04/19/21 17:48 Freq: Status: Active Protocol: Document 04/23/21 10:37 LRN (Rec: 04/23/21 12:31 LRN [id number]) Current Condition History of Current Condition Onset Date 04/03/21 Current Complaints Pain in L hip rated 3-7/10, hovers around 5/10. History of Current Condition Per pt report: Original L SHERIDAN 02/2020 @ (Dr. Martinez), did rehab at [facility] ( ) and completed therapy, followed by R SHERIDAN in 04/2020 with rehab at finishing 2019 due to insurance limit. Tripped on cat beginning of March, injuring the L hip, resulting in L SHERIDAN revision and was discharged from hospital 04/05/21 Pt was discharged home without therapy home services. Pt's mother who lives close by was available to help pt during her recovery. Pt states she was told her femur and ball joint didn't break but needed to put in a larger claudy and wire her bone together. ( Pt reports prior hx of breaking the L greater trochanter with no treatment given). Prior Treatments and Tests Per pt, Precautions: Restriction: Flex <120 deg's and no abduction (records unavailable). Future Testing and Treatments Planned Next Ortho appt ~April,. Treatment Goals Patient/Caregiver Goals Pt goal is to be able to walk without a hitch, walk up/down stairs withpout handrail, take hike and have better balalnce and stamina. Prior Functional Status Baseline Function- ADL's Independent Baseline Function- Mobility Independent Baseline Function- Gait Stairs, could walk 4 blks. Baseline Function- Work/School Unemployed Baseline Function- Other Lives on bottom level appt. Mother helps her carry heavy things into house and cleans the floors. Current Functional Impairments (Reported) Functional Limitations- ADL's Walks around apartment, walks around [employer] is exhausting. Hip flexion of 100 deg's with sit to stand. Functional Limitations- Mobility/Gait Walks with FWW outside. No assistive device in apartment but is painful and hobbles. Functional Limitations- Other Stairs impossible, Walking painful, sleeping on sides painful. Told to put pillows between legs. Personal Factors Other Personal Factors That May Effect Lives alone with mother living Therapy/Recovery close by to help. Pt has extensive health history: blood clots, depression, dizziness, falls, Bilateral SHERIDAN's, kidney disease, liver disease, neuropathy, osteoporosis, stroke. 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 PT-OP-C Subjective Start: 04/19/21 17:48 Freq: Status: Active Protocol: Document 05/25/21 09:51 LRN (Rec: 05/25/21 10:57 LRN [id number]) OP-PT Subjective Patient Comments Patient Comments Saw referring physician on ; no L hip AB only against gravity (no resistance ). Needs handrails for stairs & and can go step by step; and needs arms to get up from sitting. States recent use of cane, clicked and is better than using walking sticks. Thinks she is walking a block or two. L hip pain walking is 2/10, at rest (sit) pain is 1 -4/10. Pain with ascending stairs is 4/10 (with railing), descending is 1/10 using railing. Sit to stand, hip pain is 6/10. Pain is mainly in L hip, but can be in both. PT-OP-G Mobility & Gait Start: 04/19/21 17:48 Freq: Status: Active Protocol: Document 04/23/21 10:37 LRN (Rec: 04/23/21 12:31 LRN [id number]) OP Mobility Evaluation Bed Mobility Supine to and from Sit Independent, swings both legs (together) onto table . Transfers Sit to Stand Independent with use of hands. OP Gait Assessment Gait Gait Assistance Required: Independent Distance (Feet) 100 Able to Maintain Weight Bearing Status Yes During Gait Assistive Devices Assistive Device Front Wheeled Walker Gait Deviations General Gait Pattern Antalgic Factors Limiting Gait Function Factors Limiting Gait Function Decreased Activity Tolerance, Decreased Sensation,Decreased Strength,Pain,Poor Balance Comments Gait Comments Tried hiking canes. Stair Climbing Evaluation Comments Stair Climbing Comments Tried stairs using railing preferrably on the R side. Cant get up a curb without a hand assist of some kind. ....... PT-OP-J Posture/Palpation/Skin Start: 04/19/21 17:48 Freq: Status: Active Protocol: Document 04/23/21 10:37 LRN (Rec: 04/23/21 12:31 LRN [id number]) Posture Evaluation Position Standing Head/C-Spine Posture Neutral Position T-Spine Posture Flattened L-Spine Posture Flattened Shoulder Posture Neutral Scapula Posture (L) Winged,(R) Winged Comments Posture Comments Stands with trunk L leaning when wgt shifting onto LLE, normal trunk posture with wgt shift onto RLE. Palpation Assessment Location L hip Palpation Location L hip Palpation Findings Tenderness PT-OP-K Range of Motion Start: 04/19/21 17:48 Freq: Status: Active Protocol: Document 04/23/21 10:37 LRN (Rec: 04/23/21 12:31 LRN [id number]) Hip Goniometric Range of Motion Hip Right Active Testing Position Supine Flexion w/Knee Flexed 100 Abduction 20 Internal Rotation 30 External Rotation 55 Comments Uninvolved side with history or R SHERIDAN Left Active Testing Position Supine Flexion w/Knee Flexed 100 Knee Goniometric Range of Motion Knee Right Knee ROM WFL Yes Patient Position Supine Left Knee ROM WFL Yes Patient Position Supine PT-OP-M Strength Start: 04/19/21 17:48 Freq: Status: Active Protocol: Document 04/23/21 10:37 LRN (Rec: 04/23/21 12:31 LRN [id number]) Hip Strength Hip Manual Muscle Testing Right Flexion (L2) 5 Normal Extension (S1) 5 Normal Comments Deferred testing of other muscle groups due to L hip pain. Left Flexion (L2) 2+ Poor+ Extension (S1) 3- Fair- Comments Deferred testing of other muscle groups due to pain and precautioins limiting testing. Knee Strength Knee Manual Muscle Testing Right Comments Generally 5/5 Left Comments Generally 5/5 PT-OP-Q Treatments Start: 04/19/21 17:48 Freq: Status: Active Protocol: Document 05/25/21 09:51 LRN (Rec: 05/25/21 10:57 LRN [id number]) Gym Equipment Shuttle Recovery Unilateral Squats Resistance 37# lalitha, 37# R, 12# L Shuttle Recovery Platform Stable Reps/Time x15 lalitha, x15 R, x15 L Bilateral Squats Resistance 50# Shuttle Recovery Platform Stable Reps/Time 3x10 Therapeutic Exercises Supine Exercises 1 Supine Exercise Name SLR Side bilateral Resistance 2# Reps/Minutes 15x2 Self-Care/Home Management Treatment Education Other Education Educated pt in movement precautions (post surgical and forever precautions given by referring physician), and consequences of ignoring (as pt states she is bending down to fiber picker objects off the floor and crosses her legs). Discussed timing for adhering closely to precautions. Educated and practiced proper standing posture. Used mirror, wall, physical & verbal cuing. Activities Self-Care/Home Management Activities I/S pt in ex's to focus on at home today: SAQ, Heel slides, toe-taps, hamstring curl, hip AB standing. PT-OP-T Assessment and Plan Start: 04/19/21 17:48 Freq: Status: Active Protocol: Document 05/25/21 09:51 LRN (Rec: 05/25/21 10:57 LRN [id number]) Physical Therapy Assessment Goals Four Impairment Decreased endurance (gait 92' with walking sticks prior to fatigue) Short Term Goal (STG) Pt will demonstrate improved endurance with ability to walk 200+ feet with appropriate assistive device without L hip pain greater than 2-3/10 and without fatigue. (05/24/21: Walking feet, w/ pain 2/10) STG Duration 05/22/21 Bevel Gear Generator Operator Goal (LTG) Pt will improve balance to be able to walk on uneven surfaces with ability to independently correct for balance near loss, and to improve her confidence to hike by 50%. LTG Duration 06/22/21 Three Impairment Decreased ambulatory ability on level (endurance) and steps (curb, railing) Short Term Goal (STG) Pt will be able to independently go up/down a curb with an assistive device (cane, one crutch, or walking sticks). STG Duration 05/22/21 (05/24/21: MET GOAL) [facility] Goal (LTG) Pt will be able to walk up/ down stairs without handrail. LTG Duration 06/22/21 Two Impairment Gait requiring use of FWW Short Term Goal (STG) Pt will be able to wgt shift in standing with normal trunk posture (no L trunk lean). STG Duration 05/22/21 [facility] Goal (LTG) Pt goal is to be able to walk without an assistive device at her prior level of function ( no hitch), and awareness of no L trunk lean on L LE stance phase. LTG Duration 06/22/21 One Impairment Lacks appropriate self care HEP Short Term Goal (STG) Pt will be educated in edema/ pain management of L hip. STG Duration 05/22/21 [facility] Goal (LTG) Pt will be independent in a self care HEP of L hip ROM and strengthening within limitations of ROM restriction (flex <120 deg's, no AB). LTG Duration 07/22/21 Assessment Summary Assessment Pt still demonstrates forward bent posturing at the hips, but is able to self correct with visual, phys & v cuing. Pt is walking w/SPC, but will benefit from further gait training. Education in self care for edema/hip pain after activities will be helpful with pain management. Physical Therapy Plan Frequency and Duration Frequency of Treatment 1-2x/week Duration of Treatment 60 days Plan of Care Start Date 04/23/21 Plan of Care End Date 06/22/21 Next Visit Focus/Plan Next Note Type Treatment Note Next Visit Plan Pt has 2 more visits scheduled . Shorten treatment time per pt request to <38 minutes, use only 2 units each session to extend benefit. Assess gait endurance tolerance (200+ft with pain no greater than 2/10 - STG #4). Assess wgt shift standing posture (STG #2) and address needed corrections. Address self care goals. Continue with post-op strengthening to achieve goals for gait/mobility (see mvmt precautions in admin note 05/14).
--- NOTE | 2021-05-30 11:56 | PT.OTN ---
Current Diagnoses Muscle weakness (generalized) (05/30/21) Other abnormalities of gait and mobility (05/30/21) Presence of unspecified artificial hip joint (05/30/21) Physical Therapy Treatment Note PT-OP-A Visit Information Start: 04/19/21 17:48 Freq: Status: Active Protocol: Document 05/30/21 11:15 DCW (Rec: 05/30/21 11:56 DCW [id number]) Out-Patient Physical Therapy Visit Information Visit Information Visit Type Treatment Note Visit Note Shortened visit to preserve units. MVMT RESTRICTIONS IN ADMIN NOTE 05/14/21. Pt hip AB only against gravity. Visit Start Time 11:15 Visit Stop Time 11:50 Total Visit Minutes 35 Visit Number 7 Number of HOMEBOUND TEACHER Visits 0 Evaluation Information Evaluation Date 04/23/21 Precautions Precautions Medical records review: Anorexia, Neuropathy, R ankle pain, alcoholism in remission, Cirrhosis, hx of L foot/ankle /knee injury, hx of R foot/ ankle injury and R SHERIDAN. PT-OP-B Current Condition Start: 04/19/21 17:48 Freq: Status: Active Protocol: Document 04/23/21 10:37 LRN (Rec: 04/23/21 12:31 LRN [id number]) Current Condition History of Current Condition Onset Date 04/03/21 Current Complaints Pain in L hip rated 3-7/10, hovers around 5/10. History of Current Condition Per pt report: Original L SHERIDAN 02/2020 @ (Dr. Martinez), did rehab at [facility] ( ) and completed therapy, followed by R SHERIDAN in 04/2020 with rehab at finishing 2019 due to insurance limit. Tripped on cat beginning of March, injuring the L hip, resulting in L SHERIDAN revision and was discharged from hospital 04/05/21 Pt was discharged home without therapy home services. Pt's mother who lives close by was available to help pt during her recovery. Pt states she was told her femur and ball joint didn't break but needed to put in a larger claudy and wire her bone together. ( Pt reports prior hx of breaking the L greater trochanter with no treatment given). Prior Treatments and Tests Per pt, Precautions: Restriction: Flex <120 deg's and no abduction (records unavailable). Future Testing and Treatments Planned Next Ortho appt ~April,. Treatment Goals Patient/Caregiver Goals Pt goal is to be able to walk without a hitch, walk up/down stairs withpout handrail, take hike and have better balalnce and stamina. Prior Functional Status Baseline Function- ADL's Independent Baseline Function- Mobility Independent Baseline Function- Gait Stairs, could walk 4 blks. Baseline Function- Work/School Unemployed Baseline Function- Other Lives on bottom level appt. Mother helps her carry heavy things into house and cleans the floors. Current Functional Impairments (Reported) Functional Limitations- ADL's Walks around apartment, walks around [employer] is exhausting. Hip flexion of 100 deg's with sit to stand. Functional Limitations- Mobility/Gait Walks with FWW outside. No assistive device in apartment but is painful and hobbles. Functional Limitations- Other Stairs impossible, Walking painful, sleeping on sides painful. Told to put pillows between legs. Personal Factors Other Personal Factors That May Effect Lives alone with mother living Therapy/Recovery close by to help. Pt has extensive health history: blood clots, depression, dizziness, falls, Bilateral SHERIDAN's, kidney disease, liver disease, neuropathy, osteoporosis, stroke. 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 PT-OP-C Subjective Start: 04/19/21 17:48 Freq: Status: Active Protocol: Document 05/30/21 11:15 DCW (Rec: 05/30/21 11:56 DCW [id number]) OP-PT Subjective Patient Comments Patient Comments I'm feeling more comfortable walking with a cane, but I've been feeling like my hip flexors are really tight. PT-OP-G Mobility & Gait Start: 04/19/21 17:48 Freq: Status: Active Protocol: Document 04/23/21 10:37 LRN (Rec: 04/23/21 12:31 LRN [id number]) OP Mobility Evaluation Bed Mobility Supine to and from Sit Independent, swings both legs (together) onto table . Transfers Sit to Stand Independent with use of hands. OP Gait Assessment Gait Gait Assistance Required: Independent Distance (Feet) 100 Able to Maintain Weight Bearing Status Yes During Gait Assistive Devices Assistive Device Front Wheeled Walker Gait Deviations General Gait Pattern Antalgic Factors Limiting Gait Function Factors Limiting Gait Function Decreased Activity Tolerance, Decreased Sensation,Decreased Strength,Pain,Poor Balance Comments Gait Comments Tried hiking canes. Stair Climbing Evaluation Comments Stair Climbing Comments Tried stairs using railing preferrably on the R side. Cant get up a curb without a hand assist of some kind. ....... PT-OP-J Posture/Palpation/Skin Start: 04/19/21 17:48 Freq: Status: Active Protocol: Document 04/23/21 10:37 LRN (Rec: 04/23/21 12:31 LRN [id number]) Posture Evaluation Position Standing Head/C-Spine Posture Neutral Position T-Spine Posture Flattened L-Spine Posture Flattened Shoulder Posture Neutral Scapula Posture (L) Winged,(R) Winged Comments Posture Comments Stands with trunk L leaning when wgt shifting onto LLE, normal trunk posture with wgt shift onto RLE. Palpation Assessment Location L hip Palpation Location L hip Palpation Findings Tenderness PT-OP-K Range of Motion Start: 04/19/21 17:48 Freq: Status: Active Protocol: Document 04/23/21 10:37 LRN (Rec: 04/23/21 12:31 LRN [id number]) Hip Goniometric Range of Motion Hip Right Active Testing Position Supine Flexion w/Knee Flexed 100 Abduction 20 Internal Rotation 30 External Rotation 55 Comments Uninvolved side with history or R SHERIDAN Left Active Testing Position Supine Flexion w/Knee Flexed 100 Knee Goniometric Range of Motion Knee Right Knee ROM WFL Yes Patient Position Supine Left Knee ROM WFL Yes Patient Position Supine PT-OP-M Strength Start: 04/19/21 17:48 Freq: Status: Active Protocol: Document 04/23/21 10:37 LRN (Rec: 04/23/21 12:31 LRN [id number]) Hip Strength Hip Manual Muscle Testing Right Flexion (L2) 5 Normal Extension (S1) 5 Normal Comments Deferred testing of other muscle groups due to L hip pain. Left Flexion (L2) 2+ Poor+ Extension (S1) 3- Fair- Comments Deferred testing of other muscle groups due to pain and precautioins limiting testing. Knee Strength Knee Manual Muscle Testing Right Comments Generally 5/5 Left Comments Generally 5/5 PT-OP-Q Treatments Start: 04/19/21 17:48 Freq: Status: Active Protocol: Document 05/30/21 11:15 DCW (Rec: 05/30/21 11:56 DCW [id number]) Cardio Equipment Recumbent Elliptical (Biodex) Duration (Minutes) 5 Resistance 5 Seat Position 7 Therapeutic Exercises Standing Exercises 3 Standing Exercise Name Toe-taps Side bilateral Resistance 5# Equipment Used 6 step Reps/Minutes 20x2 2 Standing Exercise Name Hamstring curls Side bilateral Resistance 5# Reps/Minutes x20 1 Standing Exercise Name Hip Abduction Side bilateral Equipment Used // bars Manual Therapy Treatment Soft Tissue Mobilization Iliopsoas Body Location B Iliopsoas Mobilization Type Sustained Pressure,Trigger Point Release Body Position Hooklying Neuro Re-Education Treatment Balance Activities 2 Details SLS Equipment // bars tandem Details Tandem stance Equipment // bars PT-OP-T Assessment and Plan Start: 04/19/21 17:48 Freq: Status: Active Protocol: Document 05/30/21 11:15 DCW (Rec: 05/30/21 11:56 DCW [id number]) Physical Therapy Assessment Impairments Impairments Activity Tolerance,Balance, Gait,Pain,Posture,ROM,Soft Tissue Mobility,Strength Goals Four Impairment Decreased endurance (gait 92' with walking sticks prior to fatigue) Short Term Goal (STG) Pt will demonstrate improved endurance with ability to walk 200+ feet with appropriate assistive device without L hip pain greater than 2-3/10 and without fatigue. STG Duration 05/22/21 Manufacturing Analyst Goal (LTG) Pt will improve balance to be able to walk on uneven surfaces with ability to independently correct for balance near loss, and to improve her confidence to hike by 50%. LTG Duration 06/22/21 Three Impairment Decreased ambulatory ability on level (endurance) and steps (curb, railing) Short Term Goal (STG) Pt will be able to independently go up/down a curb with an assistive device (cane, one crutch, or walking sticks). STG Duration 05/22/21 [facility] Goal (LTG) Pt will be able to walk up/ down stairs without handrail. LTG Duration 06/22/21 Two Impairment Gait requiring use of FWW Short Term Goal (STG) Pt will be able to wgt shift in standing with normal trunk posture (no L trunk lean). STG Duration 05/22/21 [facility] Goal (LTG) Pt goal is to be able to walk without an assistive device at her prior level of function ( no hitch), and awareness of no L trunk lean on L LE stance phase. LTG Duration 06/22/21 One Impairment Lacks appropriate self care HEP Short Term Goal (STG) Pt will be educated in edema/ pain management of L hip. STG Duration 05/22/21 [facility] Goal (LTG) Pt will be independent in a self care HEP of L hip ROM and strengthening within limitations of ROM restriction (flex <120 deg's, no AB). LTG Duration 07/22/21 Assessment Summary Assessment Pt wanted to work on loosening up her hip flexors, as she is not allowed to perform and hip extension, worked on STM to help decreased tone in iliopsoas. Physical Therapy Plan Frequency and Duration Frequency of Treatment 1-2x/week Duration of Treatment 60 days Plan of Care Start Date 04/23/21 Plan of Care End Date 06/22/21 Therapeutic Interventions Therapeutic Interventions Gait Training,Home Exercise Program,Manual Therapy,Patient /Caregiver Education,Self-Care /Home Management,Soft Tissue Mobilization,Taping, Therapeutic Exercises Modalities Cold Pack/Ice Massage,Hot Packs Next Visit Focus/Plan Next Note Type Treatment Note Next Visit Plan Shorten treatment time to <38 minutes, use only 2 units each session to extend benefit. Focus on gait next session Continue with post-op strengthening, gait, and mobility.
--- NOTE | 2021-06-15 12:35 | PT.OTN ---
Current Diagnoses Muscle weakness (generalized) (06/15/21) Other abnormalities of gait and mobility (06/15/21) Presence of unspecified artificial hip joint (06/15/21) Physical Therapy Treatment Note PT-OP-A Visit Information Start: 04/19/21 17:48 Freq: Status: Active Protocol: Document 06/15/21 11:25 LRN (Rec: 06/15/21 12:34 LRN [id number]) Out-Patient Physical Therapy Visit Information Visit Information Visit Type Treatment Note Visit Note Shortened visit to preserve units. MVMT RESTRICTIONS IN ADMIN NOTE 05/14/21. Pt hip AB only against gravity. Visit Start Time 11:25 Visit Stop Time 12:00 Total Visit Minutes 35 Visit Number 8 Number of MEAT COUNTER CLERK Visits 0 Evaluation Information Evaluation Date 04/23/21 Precautions Precautions Medical records review: Anorexia, Neuropathy, R ankle pain, alcoholism in remission, Cirrhosis, hx of L foot/ankle /knee injury, hx of R foot/ ankle injury and R SHERIDAN. PT-OP-B Current Condition Start: 04/19/21 17:48 Freq: Status: Active Protocol: Document 04/23/21 10:37 LRN (Rec: 04/23/21 12:31 LRN [id number]) Current Condition History of Current Condition Onset Date 04/03/21 Current Complaints Pain in L hip rated 3-7/10, hovers around 5/10. History of Current Condition Per pt report: Original L SHERIDAN 02/2020 @ (Dr. Martinez), did rehab at [facility] ( ) and completed therapy, followed by R SHERIDAN in 04/2020 with rehab at finishing 2019 due to insurance limit. Tripped on cat beginning of March, injuring the L hip, resulting in L SHERIDAN revision and was discharged from hospital 04/05/21 Pt was discharged home without therapy home services. Pt's mother who lives close by was available to help pt during her recovery. Pt states she was told her femur and ball joint didn't break but needed to put in a larger claudy and wire her bone together. ( Pt reports prior hx of breaking the L greater trochanter with no treatment given). Prior Treatments and Tests Per pt, Precautions: Restriction: Flex <120 deg's and no abduction (records unavailable). Future Testing and Treatments Planned Next Ortho appt ~April,. Treatment Goals Patient/Caregiver Goals Pt goal is to be able to walk without a hitch, walk up/down stairs withpout handrail, take hike and have better balalnce and stamina. Prior Functional Status Baseline Function- ADL's Independent Baseline Function- Mobility Independent Baseline Function- Gait Stairs, could walk 4 blks. Baseline Function- Work/School Unemployed Baseline Function- Other Lives on bottom level appt. Mother helps her carry heavy things into house and cleans the floors. Current Functional Impairments (Reported) Functional Limitations- ADL's Walks around apartment, walks around [employer] is exhausting. Hip flexion of 100 deg's with sit to stand. Functional Limitations- Mobility/Gait Walks with FWW outside. No assistive device in apartment but is painful and hobbles. Functional Limitations- Other Stairs impossible, Walking painful, sleeping on sides painful. Told to put pillows between legs. Personal Factors Other Personal Factors That May Effect Lives alone with mother living Therapy/Recovery close by to help. Pt has extensive health history: blood clots, depression, dizziness, falls, Bilateral SHERIDAN's, kidney disease, liver disease, neuropathy, osteoporosis, stroke. 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 PT-OP-C Subjective Start: 04/19/21 17:48 Freq: Status: Active Protocol: Document 06/15/21 11:25 LRN (Rec: 06/15/21 12:34 LRN [id number]) OP-PT Subjective Patient Comments Patient Comments States her L hip started hurting more 1.5 weeks ago. States she was told on 05/17/21 that she had a fracture/break at the L greater trochanter and that there was nothing that could be done. States she walked .4 x2 miles to mom 's home a couple weeks ago. Pain today sitting is 1-2/10, with walking is 3-4/10. Pt denies allergic reaction to tapes. OP-PT Pain Assessment Pain Assessment Grid Paper Pain Assessment Grid Completed No Location L lateral hip and lateral thign Pain Location Details L lateral hip 1-2/10, after walking 3-4/10 PT-OP-G Mobility & Gait Start: 04/19/21 17:48 Freq: Status: Active Protocol: Document 04/23/21 10:37 LRN (Rec: 04/23/21 12:31 LRN [id number]) OP Mobility Evaluation Bed Mobility Supine to and from Sit Independent, swings both legs (together) onto table . Transfers Sit to Stand Independent with use of hands. OP Gait Assessment Gait Gait Assistance Required: Independent Distance (Feet) 100 Able to Maintain Weight Bearing Status Yes During Gait Assistive Devices Assistive Device Front Wheeled Walker Gait Deviations General Gait Pattern Antalgic Factors Limiting Gait Function Factors Limiting Gait Function Decreased Activity Tolerance, Decreased Sensation,Decreased Strength,Pain,Poor Balance Comments Gait Comments Tried hiking canes. Stair Climbing Evaluation Comments Stair Climbing Comments Tried stairs using railing preferrably on the R side. Cant get up a curb without a hand assist of some kind. ....... PT-OP-J Posture/Palpation/Skin Start: 04/19/21 17:48 Freq: Status: Active Protocol: Document 04/23/21 10:37 LRN (Rec: 04/23/21 12:31 LRN [id number]) Posture Evaluation Position Standing Head/C-Spine Posture Neutral Position T-Spine Posture Flattened L-Spine Posture Flattened Shoulder Posture Neutral Scapula Posture (L) Winged,(R) Winged Comments Posture Comments Stands with trunk L leaning when wgt shifting onto LLE, normal trunk posture with wgt shift onto RLE. Palpation Assessment Location L hip Palpation Location L hip Palpation Findings Tenderness PT-OP-K Range of Motion Start: 04/19/21 17:48 Freq: Status: Active Protocol: Document 04/23/21 10:37 LRN (Rec: 04/23/21 12:31 LRN [id number]) Hip Goniometric Range of Motion Hip Right Active Testing Position Supine Flexion w/Knee Flexed 100 Abduction 20 Internal Rotation 30 External Rotation 55 Comments Uninvolved side with history or R SHERIDAN Left Active Testing Position Supine Flexion w/Knee Flexed 100 Knee Goniometric Range of Motion Knee Right Knee ROM WFL Yes Patient Position Supine Left Knee ROM WFL Yes Patient Position Supine PT-OP-M Strength Start: 04/19/21 17:48 Freq: Status: Active Protocol: Document 04/23/21 10:37 LRN (Rec: 04/23/21 12:31 LRN [id number]) Hip Strength Hip Manual Muscle Testing Right Flexion (L2) 5 Normal Extension (S1) 5 Normal Comments Deferred testing of other muscle groups due to L hip pain. Left Flexion (L2) 2+ Poor+ Extension (S1) 3- Fair- Comments Deferred testing of other muscle groups due to pain and precautioins limiting testing. Knee Strength Knee Manual Muscle Testing Right Comments Generally 5/5 Left Comments Generally 5/5 PT-OP-Q Treatments Start: 04/19/21 17:48 Freq: Status: Active Protocol: Document 06/15/21 11:25 LRN (Rec: 06/15/21 12:34 LRN [id number]) Therapeutic Exercises Standing Exercises Weight shifting Standing Exercise Name Weight shifting Side bilateral Comments 3' Gait Training Gait Activity Gait with SPC Description Gait with SPC on R side to minimize pain in L lat hip. Device Used SPC Level of Assistance Indep Surface Level Distance/Duration 205 ft Treatment Focus Gait with pain no greater than 1-2/10. Comments Pain is rated 3.5 after gait. Pt required rest after gait. stairs Description Stair amb with spc on R side Device Used SPC Level of Assistance Indep Distance/Duration 7' Treatment Focus Safety and balance Comments Pt had sit rest after gait Manual Therapy Treatment Taping L lateral hip (greater trochanter) Body Location L Greater trochanter Treatment Focus Edema Type of Tape K-tape Skin Inspection Excellent Comments Well healed scar. 2 Fan strips crossing with anchored ends. Self-Care/Home Management Treatment Education Other Education Educated pt in safe and proper removal of K-tape, and signs of allergic reaction with discussion of how to remove to prevent skin disruption. Discussed timeframe of removal K-tape within 5 days max of application. Activities Self-Care/Home Management Activities I/S pt to remove K-tape day before next visit for reapplication if she is finding it helpful for pain. I/S pt to remove K-tape at any signs of allergic reaction, and to monitor closely. Reviewed with pt not to do hip AB and extension exercises. PT-OP-T Assessment and Plan Start: 04/19/21 17:48 Freq: Status: Active Protocol: Document 06/15/21 11:25 LRN (Rec: 06/15/21 12:34 LRN [id number]) Physical Therapy Assessment Goals Four Impairment Decreased endurance (gait 92' with walking sticks prior to fatigue) Short Term Goal (STG) Pt will demonstrate improved endurance with ability to walk 200+ feet with appropriate assistive device without L hip pain greater than 2-3/10 and without fatigue. (06/15/21: Pt walked 205' with pain rated 3.5, rest needed due to pain after gait). STG Duration 05/22/21 (06/15/21: Improved tolerance to gait) Scientific Publications Editor Goal (LTG) Pt will improve balance to be able to walk on uneven surfaces with ability to independently correct for balance near loss, and to improve her confidence to hike by 50%. LTG Duration 06/22/21 Three Impairment Decreased ambulatory ability on level (endurance) and steps (curb, railing) Short Term Goal (STG) Pt will be able to independently go up/down a curb with an assistive device (cane, one crutch, or walking sticks). (06/15/21: Able to go up cub with cane) STG Duration 05/22/21 (06/15/21: MET GOAL) Assisted Goal (LTG) Pt will be able to walk up/ down stairs without handrail. LTG Duration 06/22/21 Two Impairment Gait requiring use of FWW Short Term Goal (STG) Pt will be able to wgt shift in standing with normal trunk posture (no L trunk lean). STG Duration 05/22/21 (06/15/21: MET GOAL) Scientific Publications Editor Goal (LTG) Pt goal is to be able to walk without an assistive device at her prior level of function ( no hitch), and awareness of no L trunk lean on L LE stance phase. LTG Duration 06/22/21 One Impairment Lacks appropriate self care HEP Short Term Goal (STG) Pt will be educated in edema/ pain management of L hip. (06/14/21: Pt educated in use of Cold pack to L hip for edema/pain management). STG Duration 05/22/21 (06/14/21: Partially met) Assisted Goal (LTG) Pt will be independent in a self care HEP of L hip ROM and strengthening within limitations of ROM restriction (flex <120 deg's, no AB). LTG Duration 07/22/21 Progress Towards Goals Progress Comments Pt able to weight shift without pain (STG # 2 MET), Pt able to go ambulate curbs with SPC (STG #3 MET), Pt able to walk 200+ feet (STG #4 Progressing). Assessment Summary Assessment Pt L hip has been hurting more the past 1.5 weeks. She is not using edema management techniques (use of cold packs) , and is walking as much as she can with use of SPC. She appears to have a good understanding of k-tape requirements (removal and wear time). Pt may be doing too much exer at the L hip. Pt may not reach her LTG's due to fracture of greater trochanter end. Per pt, Orthopedist has indicated there is nothing he can do for the fracture. Physical Therapy Plan Frequency and Duration Frequency of Treatment 1-2x/week Duration of Treatment 60 days Plan of Care Start Date 04/23/21 Plan of Care End Date 06/22/21 Next Visit Focus/Plan Next Note Type Treatment Note Next Visit Plan Check if 2 more visits allowable for PT. Review & Issue RICE protocol for edema/ pain management (STG #!). Shorten treatment time to <38 minutes, use only 2 units each session to extend benefit. Progress pt's functional activities and minimize ex that increases L lateral hip pain from (according to patient) fracture greater trochanter tip. Focus on gait next session Continue with post-op strengthening, gait, and mobility.
--- NOTE | 2021-06-22 16:07 | PT.OTN ---
Current Diagnoses Muscle weakness (generalized) (06/22/21) Other abnormalities of gait and mobility (06/22/21) Presence of unspecified artificial hip joint (06/22/21) Physical Therapy Treatment Note PT-OP-A Visit Information Start: 04/19/21 17:48 Freq: Status: Active Protocol: Document 06/22/21 10:49 LRN (Rec: 06/22/21 12:14 LRN [id number]) Out-Patient Physical Therapy Visit Information Visit Information Visit Type Progress Note Visit Start Time 10:49 Visit Stop Time 11:17 Total Visit Minutes 28 Visit Number 9 Evaluation Information Evaluation Date 04/23/21 Precautions Precautions Medical records review: Anorexia, Neuropathy, R ankle pain, alcoholism in remission, Cirrhosis, hx of L foot/ankle /knee injury, hx of R foot/ ankle injury and R SHERIDAN. PT-OP-B Current Condition Start: 04/19/21 17:48 Freq: Status: Active Protocol: Document 04/23/21 10:37 LRN (Rec: 04/23/21 12:31 LRN [id number]) Current Condition History of Current Condition Onset Date 04/03/21 Current Complaints Pain in L hip rated 3-7/10, hovers around 5/10. History of Current Condition Per pt report: Original L SHERIDAN 02/2020 @ (Dr. Martinez), did rehab at [facility] ( ) and completed therapy, followed by R SHERIDAN in 04/2020 with rehab at finishing 2019 due to insurance limit. Tripped on cat beginning of March, injuring the L hip, resulting in L SHERIDAN revision and was discharged from hospital 04/05/21 Pt was discharged home without therapy home services. Pt's mother who lives close by was available to help pt during her recovery. Pt states she was told her femur and ball joint didn't break but needed to put in a larger claudy and wire her bone together. ( Pt reports prior hx of breaking the L greater trochanter with no treatment given). Prior Treatments and Tests Per pt, Precautions: Restriction: Flex <120 deg's and no abduction (records unavailable). Future Testing and Treatments Planned Next Ortho appt ~April,. Treatment Goals Patient/Caregiver Goals Pt goal is to be able to walk without a hitch, walk up/down stairs withpout handrail, take hike and have better balalnce and stamina. Prior Functional Status Baseline Function- ADL's Independent Baseline Function- Mobility Independent Baseline Function- Gait Stairs, could walk 4 blks. Baseline Function- Work/School Unemployed Baseline Function- Other Lives on bottom level appt. Mother helps her carry heavy things into house and cleans the floors. Current Functional Impairments (Reported) Functional Limitations- ADL's Walks around apartment, walks around [employer] is exhausting. Hip flexion of 100 deg's with sit to stand. Functional Limitations- Mobility/Gait Walks with FWW outside. No assistive device in apartment but is painful and hobbles. Functional Limitations- Other Stairs impossible, Walking painful, sleeping on sides painful. Told to put pillows between legs. Personal Factors Other Personal Factors That May Effect Lives alone with mother living Therapy/Recovery close by to help. Pt has extensive health history: blood clots, depression, dizziness, falls, Bilateral SHERIDAN's, kidney disease, liver disease, neuropathy, osteoporosis, stroke. 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 PT-OP-C Subjective Start: 04/19/21 17:48 Freq: Status: Active Protocol: Document 06/22/21 10:49 LRN (Rec: 06/22/21 12:14 LRN [id number]) OP-PT Subjective Patient Comments Patient Comments Pt complains of L hip pain with sitting on toilet. LBP with prolonged walking. Pain today 0-1/10 except with prolonged walking there is L hip pain up to 4-5/10. PT-OP-G Mobility & Gait Start: 04/19/21 17:48 Freq: Status: Active Protocol: Document 04/23/21 10:37 LRN (Rec: 04/23/21 12:31 LRN [id number]) OP Mobility Evaluation Bed Mobility Supine to and from Sit Independent, swings both legs (together) onto table . Transfers Sit to Stand Independent with use of hands. OP Gait Assessment Gait Gait Assistance Required: Independent Distance (Feet) 100 Able to Maintain Weight Bearing Status Yes During Gait Assistive Devices Assistive Device Front Wheeled Walker Gait Deviations General Gait Pattern Antalgic Factors Limiting Gait Function Factors Limiting Gait Function Decreased Activity Tolerance, Decreased Sensation,Decreased Strength,Pain,Poor Balance Comments Gait Comments Tried hiking canes. Stair Climbing Evaluation Comments Stair Climbing Comments Tried stairs using railing preferrably on the R side. Cant get up a curb without a hand assist of some kind. ....... PT-OP-J Posture/Palpation/Skin Start: 04/19/21 17:48 Freq: Status: Active Protocol: Document 04/23/21 10:37 LRN (Rec: 04/23/21 12:31 LRN [id number]) Posture Evaluation Position Standing Head/C-Spine Posture Neutral Position T-Spine Posture Flattened L-Spine Posture Flattened Shoulder Posture Neutral Scapula Posture (L) Winged,(R) Winged Comments Posture Comments Stands with trunk L leaning when wgt shifting onto LLE, normal trunk posture with wgt shift onto RLE. Palpation Assessment Location L hip Palpation Location L hip Palpation Findings Tenderness PT-OP-K Range of Motion Start: 04/19/21 17:48 Freq: Status: Active Protocol: Document 04/23/21 10:37 LRN (Rec: 04/23/21 12:31 LRN [id number]) Hip Goniometric Range of Motion Hip Right Active Testing Position Supine Flexion w/Knee Flexed 100 Abduction 20 Internal Rotation 30 External Rotation 55 Comments Uninvolved side with history or R SHERIDAN Left Active Testing Position Supine Flexion w/Knee Flexed 100 Knee Goniometric Range of Motion Knee Right Knee ROM WFL Yes Patient Position Supine Left Knee ROM WFL Yes Patient Position Supine PT-OP-M Strength Start: 04/19/21 17:48 Freq: Status: Active Protocol: Document 04/23/21 10:37 LRN (Rec: 04/23/21 12:31 LRN [id number]) Hip Strength Hip Manual Muscle Testing Right Flexion (L2) 5 Normal Extension (S1) 5 Normal Comments Deferred testing of other muscle groups due to L hip pain. Left Flexion (L2) 2+ Poor+ Extension (S1) 3- Fair- Comments Deferred testing of other muscle groups due to pain and precautioins limiting testing. Knee Strength Knee Manual Muscle Testing Right Comments Generally 5/5 Left Comments Generally 5/5 PT-OP-Q Treatments Start: 04/19/21 17:48 Freq: Status: Active Protocol: Document 06/22/21 10:49 LRN (Rec: 06/22/21 12:14 LRN [id number]) Gait Training Gait Activity Gait with SPC Description Gait with SPC on R side to minimize pain in L lat hip. Device Used SPC Level of Assistance Indep Surface Level Distance/Duration 140 + 400 ft Treatment Focus Gait with pain no greater than 1-2/10. Comments Pt required rest and ice given to L hip during rest. Verbal cuing was needed for pt to avoid hyperext of L hip on gait. Manual Therapy Treatment Soft Tissue Mobilization QL Body Location r>L Mobilization Type Rolling,Strumming Intensity/Depth Moderate Body Position Sidelying Comments Treatment in R sidelie with 2 pillows between knees. Taping L lateral hip (greater trochanter) Body Location L Greater trochanter Treatment Focus Stability - Correction Type of Tape K-tape Skin Inspection Excellent Comments Well healed scar. 3 I-strips at Greater Trochanter. Reviewed education in safe removal of K-tape and timeframe for removal (within 5 days). Pt to monitor for signs of allergic reaction. PT-OP-T Assessment and Plan Start: 04/19/21 17:48 Freq: Status: Active Protocol: Document 06/22/21 10:49 LRN (Rec: 06/22/21 12:14 LRN [id number]) Physical Therapy Assessment Rehab Potential Rehabilitation Potential Fair Evaluation Complexity Number of Personal Factors/Comorbidities 3 or More Number of Body Systems Impaired 4 or More Clinical Presentation at Evaluation Evolving Impairments Impairments Activity Tolerance,Balance, Gait,Pain,ROM,Soft Tissue Mobility,Strength Goals Four Impairment Decreased endurance (gait 92' with walking sticks prior to fatigue) Short Term Goal (STG) Pt will demonstrate improved endurance with ability to walk 200+ feet with appropriate assistive device without L hip pain greater than 2-3/10 and without fatigue. (06/15/21: Pt walked 205' with pain rated 3.5, rest needed due to pain after gait). (06/22/21: Gait 140' with pain , but demonstrating hyper-ext of L hip without cuing; gait 200+ results in fatigue but reduced hip pain when adhering to avoiding hip hyper-ext). STG Duration 07/06/21 (06/15/21: Improved tolerance to gait) Petroleum Engineering Professor Goal (LTG) Pt will improve balance to be able to walk on uneven surfaces with ability to independently correct for balance near loss, and to improve her confidence to hike by 50%. LTG Duration 07/06/21 (06/22/21: Ability limited by L hip pain) Three Impairment Decreased ambulatory ability on level (endurance) and steps (curb, railing) Short Term Goal (STG) Pt will be able to independently go up/down a curb with an assistive device (cane, one crutch, or walking sticks). (06/15/21: Able to go up cub with cane) STG Duration 05/22/21 (06/15/21: MET GOAL) [facility]cf Goal (LTG) Pt will be able to walk up/ down stairs without handrail. LTG Duration 07/06/21 (06/22/21: Requires handrail due to pain) Two Impairment Gait requiring use of FWW Short Term Goal (STG) Pt will be able to wgt shift in standing with normal trunk posture (no L trunk lean). STG Duration 05/22/21 (06/15/21: MET GOAL) Petroleum Engineering Professor Goal (LTG) Pt goal is to be able to walk without an assistive device at her prior level of function ( no hitch), and awareness of no L trunk lean on L LE stance phase. LTG Duration 07/06/21 One Impairment Lacks appropriate self care HEP Short Term Goal (STG) Pt will be educated in edema/ pain management of L hip. (06/14/21: Pt educated in use of Cold pack to L hip for edema/pain management). (06/22/21: Pt educated in RICE without use of Compression, for edema/pain management) STG Duration 05/22/21 (06/22/21: MET GOAL) Petroleum Engineering Professor Goal (LTG) Pt will be independent in a self care HEP of L hip ROM and strengthening within limitations of ROM restriction of flex <120 deg's, no AB ( Overall Movement PRECAUTIONS: No flexion >120 deg's, No hyper ext, No ER. LIFELONG PRECAUTIONS: No hyper ext, No IR, No AD. Gt is WBAT). LTG Duration 07/06/21 Progress Towards Goals Progress Comments Completed education in self care for pain management. Assessment Summary Assessment The pt had missed a physical therapy appointment; therefore she needs extension of her therapy timeframe to maximize her PT benefits for 1 more visit. Today she had greater tolerance to gait when adhering to no hyper-extension of L hip. Pt is having pain in L buttock when sitting on toilet, possibly due to pressure on proximal femur or from hardness of toilet seat. Pt will try repositioning on toilet to improve comfort and was recommended to try cushioned seat for comfort. She complained of low back pain with prolonged walking, probably due to general deconditioning and muscle fatigue. No significant palpable trigger points noted. Pt posture is upright with flattening of lumbar spine; therefore improper posture is not to blame for her LBP. She has increased L hip pain with gait if not aware of walking with hyper-ext of hip, requiring verbal cuing to avoid hyper-ext. The pt's rehab program of strengthening focused on functional activity of walking. Use of K-tape to the L hip provided stability at the hip and improved her comfort, even if only temporary. Her previous K-taping for edema did not appear to be helpful in pain relief. She reported no skin sensitivity or reaction to the K-tape from the last session. Physical Therapy Plan Frequency and Duration Frequency of Treatment 1-2x/week Duration of Treatment 60 days Plan of Care Start Date 06/22/21 Plan of Care End Date 07/06/21 Therapeutic Interventions Therapeutic Interventions Gait Training,Home Exercise Program,Manual Therapy,Patient /Caregiver Education,Self-Care /Home Management,Soft Tissue Mobilization,Taping, Therapeutic Activities, Therapeutic Exercises Modalities Cold Pack/Ice Massage,Hot Packs Next Visit Focus/Plan Next Note Type Discharge Summary Next Visit Plan Shorten treatment time to <38 minutes, pt has 2 units for DC visit. Last visit: Focus on self care of pt's functional activities and minimize ex that increases L lateral hip pain from (according to patient fracture greater trochanter tip), review Post- op precautions, exercise and mobility for self care.
--- NOTE | 2021-07-02 17:28 | PT-OP ANOTE ---
Per phone conversation, pt cancelled her last appointment due to not being able to walk. States the day after her last appointment she and her mom went shopping and when returned in the afternoon, was having pain on her R side hip flexor. She had X-rays taken at and was told she had no fractures. She is leaving on a trip tomorrow and will see her surgeon 07/20/21. Discussed pt's plan of care and pt agreeable to discharge from therapy the first week of July if she is not sent back to therapy on 07/20/21 for her last 2 units of therapy.
--- NOTE | 2021-10-22 12:52 | PT.OPDS ---
Current Diagnoses Muscle weakness (generalized) (06/22/21) Other abnormalities of gait and mobility (06/22/21) Presence of unspecified artificial hip joint (06/22/21) Visit Care Team Role Provider Type FELIPE Lemos Primary Care Provider Advanced Block Out Machine Operator Specialty: Medical Address: [address] [place] [address], [id number] Email: [email or web address] Xander Martinez MD Attending Provider Non-Staff Referring Provider Specialty: Orthopedics Address: [address] [place] [address], [place], [address] Email: Visit Number Visit Number 9 Discharge Summary PT-OP-B Current Condition Start: 04/19/21 17:48 Freq: Status: Active Protocol: Document 04/23/21 10:37 LRN (Rec: 04/23/21 12:31 LRN [id number]) Current Condition History of Current Condition Onset Date 04/03/21 Current Complaints Pain in L hip rated 3-7/10, hovers around 5/10. History of Current Condition Per pt report: Original L SHERIDAN 02/2020 @ (Dr. Martinez), did rehab at [facility] ( ) and completed therapy, followed by R SHERIDAN in 04/2020 with rehab at finishing 2019 due to insurance limit. Tripped on cat beginning of March, injuring the L hip, resulting in L SHERIDAN revision and was discharged from hospital 04/05/21 Pt was discharged home without therapy home services. Pt's mother who lives close by was available to help pt during her recovery. Pt states she was told her femur and ball joint didn't break but needed to put in a larger claudy and wire her bone together. ( Pt reports prior hx of breaking the L greater trochanter with no treatment given). Prior Treatments and Tests Per pt, Precautions: Restriction: Flex <120 deg's and no abduction (records unavailable). Future Testing and Treatments Planned Next Ortho appt ~April,. Treatment Goals Patient/Caregiver Goals Pt goal is to be able to walk without a hitch, walk up/down stairs withpout handrail, take hike and have better balalnce and stamina. Prior Functional Status Baseline Function- ADL's Independent Baseline Function- Mobility Independent Baseline Function- Gait Stairs, could walk 4 blks. Baseline Function- Work/School Unemployed Baseline Function- Other Lives on bottom level appt. Mother helps her carry heavy things into house and cleans the floors. Current Functional Impairments (Reported) Functional Limitations- ADL's Walks around apartment, walks around [employer] is exhausting. Hip flexion of 100 deg's with sit to stand. Functional Limitations- Mobility/Gait Walks with FWW outside. No assistive device in apartment but is painful and hobbles. Functional Limitations- Other Stairs impossible, Walking painful, sleeping on sides painful. Told to put pillows between legs. Personal Factors Other Personal Factors That May Effect Lives alone with mother living Therapy/Recovery close by to help. Pt has extensive health history: blood clots, depression, dizziness, falls, Bilateral SHERIDAN's, kidney disease, liver disease, neuropathy, osteoporosis, stroke. 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 PT-OP-C Subjective Start: 04/19/21 17:48 Freq: Status: Active Protocol: Document 06/22/21 10:49 LRN (Rec: 06/22/21 12:14 LRN [id number]) OP-PT Subjective Patient Comments Patient Comments Pt complains of L hip pain with sitting on toilet. LBP with prolonged walking. Pain today 0-1/10 except with prolonged walking there is L hip pain up to 4-5/10. PT-OP-G Mobility & Gait Start: 04/19/21 17:48 Freq: Status: Active Protocol: Document 04/23/21 10:37 LRN (Rec: 04/23/21 12:31 LRN [id number]) OP Mobility Evaluation Bed Mobility Supine to and from Sit Independent, swings both legs (together) onto table . Transfers Sit to Stand Independent with use of hands. OP Gait Assessment Gait Gait Assistance Required: Independent Distance (Feet) 100 Able to Maintain Weight Bearing Status Yes During Gait Assistive Devices Assistive Device Front Wheeled Walker Gait Deviations General Gait Pattern Antalgic Factors Limiting Gait Function Factors Limiting Gait Function Decreased Activity Tolerance, Decreased Sensation,Decreased Strength,Pain,Poor Balance Comments Gait Comments Tried hiking canes. Stair Climbing Evaluation Comments Stair Climbing Comments Tried stairs using railing preferrably on the R side. Cant get up a curb without a hand assist of some kind. ....... PT-OP-J Posture/Palpation/Skin Start: 04/19/21 17:48 Freq: Status: Active Protocol: Document 04/23/21 10:37 LRN (Rec: 04/23/21 12:31 LRN [id number]) Posture Evaluation Position Standing Head/C-Spine Posture Neutral Position T-Spine Posture Flattened L-Spine Posture Flattened Shoulder Posture Neutral Scapula Posture (L) Winged,(R) Winged Comments Posture Comments Stands with trunk L leaning when wgt shifting onto LLE, normal trunk posture with wgt shift onto RLE. Palpation Assessment Location L hip Palpation Location L hip Palpation Findings Tenderness PT-OP-K Range of Motion Start: 04/19/21 17:48 Freq: Status: Active Protocol: Document 04/23/21 10:37 LRN (Rec: 04/23/21 12:31 LRN [id number]) Hip Goniometric Range of Motion Hip Right Active Testing Position Supine Flexion w/Knee Flexed 100 Abduction 20 Internal Rotation 30 External Rotation 55 Comments Uninvolved side with history or R SHERIDAN Left Active Testing Position Supine Flexion w/Knee Flexed 100 Knee Goniometric Range of Motion Knee Right Knee ROM WFL Yes Patient Position Supine Left Knee ROM WFL Yes Patient Position Supine PT-OP-M Strength Start: 04/19/21 17:48 Freq: Status: Active Protocol: Document 04/23/21 10:37 LRN (Rec: 04/23/21 12:31 LRN [id number]) Hip Strength Hip Manual Muscle Testing Right Flexion (L2) 5 Normal Extension (S1) 5 Normal Comments Deferred testing of other muscle groups due to L hip pain. Left Flexion (L2) 2+ Poor+ Extension (S1) 3- Fair- Comments Deferred testing of other muscle groups due to pain and precautioins limiting testing. Knee Strength Knee Manual Muscle Testing Right Comments Generally 5/5 Left Comments Generally 5/5 PT-OP-T Assessment and Plan Start: 04/19/21 17:48 Freq: Status: Active Protocol: Document 10/22/21 12:38 LRN (Rec: 10/22/21 12:50 LRN [id number]) Physical Therapy Assessment Goals Four Impairment Decreased endurance (gait 92' with walking sticks prior to fatigue) Short Term Goal (STG) Pt will demonstrate improved endurance with ability to walk 200+ feet with appropriate assistive device without L hip pain greater than 2-3/10 and without fatigue. (06/15/21: Pt walked 205' with pain rated 3.5, rest needed due to pain after gait). (06/22/21: Gait 140' with pain , but demonstrating hyper-ext of L hip without cuing; gait 200+ results in fatigue but reduced hip pain when adhering to avoiding hip hyper-ext). STG Duration 07/06/21 (06/15/21: Improved tolerance to gait) Concrete Conveyor Operator Goal (LTG) Pt will improve balance to be able to walk on uneven surfaces with ability to independently correct for balance near loss, and to improve her confidence to hike by 50%. LTG Duration 07/06/21 (06/22/21: Ability limited by L hip pain) Three Impairment Decreased ambulatory ability on level (endurance) and steps (curb, railing) Short Term Goal (STG) Pt will be able to independently go up/down a curb with an assistive device (cane, one crutch, or walking sticks). (06/15/21: Able to go up cub with cane) STG Duration 05/22/21 (06/15/21: MET GOAL) Concrete Conveyor Operator Goal (LTG) Pt will be able to walk up/ down stairs without handrail. LTG Duration 07/06/21 (06/22/21: Requires handrail due to pain) Two Impairment Gait requiring use of FWW Short Term Goal (STG) Pt will be able to wgt shift in standing with normal trunk posture (no L trunk lean). STG Duration 05/22/21 (06/15/21: MET GOAL) Longterm Goal (LTG) Pt goal is to be able to walk without an assistive device at her prior level of function ( no hitch), and awareness of no L trunk lean on L LE stance phase. LTG Duration 07/06/21 (GOAL NOT MET) One Impairment Lacks appropriate self care HEP Short Term Goal (STG) Pt will be educated in edema/ pain management of L hip. (06/14/21: Pt educated in use of Cold pack to L hip for edema/pain management). (06/22/21: Pt educated in RICE without use of Compression, for edema/pain management) STG Duration 05/22/21 (06/22/21: MET GOAL) Concrete Conveyor Operator Goal (LTG) Pt will be independent in a self care HEP of L hip ROM and strengthening within limitations of ROM restriction of flex <120 deg's, no AB ( Overall Movement PRECAUTIONS: No flexion >120 deg's, No hyper ext, No ER. LIFELONG PRECAUTIONS: No hyper ext, No IR, No AD. Gt is WBAT). LTG Duration 07/06/21 (Pt was given a HEP) Assessment Summary Assessment Pt was for 8 physical therapy visits and was last seen . Her progress was hindered by coomorbidites and L hip pain. The pt had remaining visits for 2020, and had planned on returning to therapy if referred back. The pt was agreeable to discharge from therapy if she had not returned by 07/2021; therefore the pt is being discharged from phyisical therapy. On her last attended visit, she had greater tolerance to gait when adhering to precaution of no hyper- extension of L hip, but verbal cuing was needed. Pt was having pain in L buttock when sitting on toilet, possibly due to pressure on proximal femur or from hardness of toilet seat. Pt was willing to try repositioning on toilet to improve comfort and was recommended to try a cushioned seat for comfort. She complained of low back pain with prolonged walking, probably due to general deconditioning and muscle fatigue. No significant palpable trigger points were noted. Pt posture was not to blame for her LBP. The pt' s rehab program of strengthening focused on functional activity of walking . Use of K-tape to the L hip provided stability at the hip and improved her comfort, even if only temporary. She reported no skin sensitivity or reaction to the K-tape from the last session. Overall the pt did make some progress, but progress was slow. Physical Therapy Plan Discharge Physical Therapy Discharge Reasons No Longer Attending PT Discharge Comments The pt was a pleasure to work with. Thank you for your referral.
== END 2021-10-23 08:15 ==
LOC: PHYS 10:30
PROVIDERS: PCP Registered Nurse Diabetes Educator; Referring Provider Orthopaedic Surgery; Visit Provider Orthopaedic Surgery
DX: Z96.649 Presence of unspecified artificial hip joint (principal); M62.81 Muscle weakness (generalized); R26.89 Other abnormalities of gait and mobility
CPT/HCPCS: 97110; 97112; 97116; 97140; 97162; 97535

== ENCOUNTER → 2021-06-25 11:10 | Outpatient (CLI) | payer OTHER, MEDICAID, SELFPAY ==
--- NOTE | 2021-06-25 | DI.RAD.S_ITS ---
PROCEDURE: XR HIP W PEL IF DONE BILAT 2V INDICATIONS: BILATERAL HIP PAIN TECHNIQUE: AP pelvis with lateral view(s) of the bilateral hip(s). COMPARISON: [facility], [place], XR HIP W PEL IF DONE LT 2V, 04/02/2021, 12:21. FINDINGS: Bones: No fractures or dislocations. Pelvic ring appears intact. No suspicious bony lesions. Bilateral hip arthroplasty has been performed. Hardware is intact. Soft tissues: The visualized bowel gas pattern is normal. No suspicious soft tissue calcifications. IMPRESSION: Expected appearance of bilateral hip arthroplasties. Dictated by: Monica Jerome M.D. on 06/25/2021 at 13:55 Approved by: Monica Jerome M.D. on 06/25/2021 at 13:56
== END ==
PROVIDERS: PCP Registered Nurse Diabetes Educator; Referring Provider Orthopaedic Surgery; Visit Provider Orthopaedic Surgery
DX: M25.551 Pain in right hip (principal); M25.552 Pain in left hip; Z96.643 Presence of artificial hip joint, bilateral
CPT/HCPCS: 73521

== ENCOUNTER → 2021-08-28 11:43 | Outpatient (CLI) | payer OTHER, MEDICAID, SELFPAY ==
[2021-08-28 12:56] LABS: Alkaline Phosphatase 218 U/L (38-126); Glucose 69 mg/dL (70-100); Potassium 4.4 mmol/L (3.4-5.1); Sodium 137 mmol/L (137-145)
[2021-08-28 12:57] LABS: Hemoglobin 11.2 g/dL (12.0-16.0); Mean Corpuscular Hemoglobin 33.2 PG (26-34); Mean Corpuscular Volume 97.8 fL (80-100); Platelet Count 312 X10^3/uL (150-400); Red Blood Cell Count 3.37 X10^6/uL (4.0-5.2); Red Cell Distribution Width 15.1 % (11.6-14.8)
[2021-08-28 13:04] LABS: Add Manual Diff / Slide Review YES; White Blood Cell Count 1.8 X10^3/uL (4.5-11.0)
[2021-08-28 13:23] LABS: Neutrophils Absolute Manual 756 /uL (3000-5900); RBC Morphology Normal Morphology; Total Cells Counted 100
== END ==
PROVIDERS: PCP Family Medicine; Referring Provider Family Medicine; Visit Provider Family Medicine
DX: D70.9 Neutropenia, unspecified (principal); E87.6 Hypokalemia; F50.00 Anorexia nervosa, unspecified; G62.9 Polyneuropathy, unspecified; K72.10 Chronic hepatic failure without coma
CPT/HCPCS: 36415; 80053; 85007; 85025

== ENCOUNTER → 2021-11-12 12:28 | Outpatient (CLI) | payer OTHER, MEDICAID, SELFPAY ==
[2021-11-12 13:29] LABS: Hematocrit 35.5 % (36-46); Hemoglobin 11.8 g/dL (12.0-16.0); Mean Corpuscular HGB Conc 33.2 % (30-36); Mean Corpuscular Hemoglobin 31.3 PG (26-34); Mean Corpuscular Volume 94.2 fL (80-100); Platelet Count 279 X10^3/uL (150-400); Red Blood Cell Count 3.77 X10^6/uL (4.0-5.2); Red Cell Distribution Width 15.6 % (11.6-14.8)
[2021-11-12 13:30] LABS: INR 1.2 (0.9-1.3); Prothrombin Time 12.8 SECONDS (10.1-12.7)
[2021-11-12 13:32] LABS: Add Manual Diff / Slide Review YES; White Blood Cell Count 1.2 X10^3/uL (4.5-11.0)
[2021-11-12 13:44] LABS: Alanine Aminotransferase 14 IU/L (<35); Albumin 3.9 g/dL (3.5-5.0); Albumin Globulin Ratio 0.9 (1.0-2.8); Alkaline Phosphatase 196 U/L (38-126); Aspartate Aminotransferase 44 IU/L (14-36); BUN Creatinine Ratio 13.2 (6-22); Bilirubin Total 0.3 mg/dL (0.2-1.3); Blood Urea Nitrogen 9 mg/dL (7-17); Carbon Dioxide 36 mmol/L (22-32); Chloride 98 mmol/L (98-107); Estimated Glomerular Filt Rate > 60.0 mL/min (>60); Globulin 4.4 g/dL (1.7-4.1); Glucose 82 mg/dL (70-100); HEMOLYSIS < 15 (0-50); Potassium 2.9 mmol/L (3.4-5.1); Sodium 140 mmol/L (137-145); Total Protein 8.3 g/dL (6.3-8.2)
[2021-11-12 13:49] LABS: Neutrophils Absolute Manual 216 /uL (3000-5900); RBC Morphology Normal Morphology; Total Cells Counted 100
== END ==
PROVIDERS: PCP Family Medicine; Referring Provider Internal Medicine Gastroenterology; Visit Provider Internal Medicine Gastroenterology
DX: K70.31 Alcoholic cirrhosis of liver with ascites (principal)
CPT/HCPCS: 36415; 80053; 85007; 85025; 85610

== ENCOUNTER → 2022-01-21 11:20 | Outpatient (CLI) | payer OTHER, MEDICAID, SELFPAY ==
--- NOTE | 2022-01-21 | DI.RAD.S_ITS ---
PROCEDURE: XR HIP W PEL IF DONE RT 2V INDICATIONS: Trochanteric bursitis, right hip TECHNIQUE: AP pelvis with lateral view(s) of the right hip(s). COMPARISON: [facility], , XR HIP W PEL IF DONE BILAT 2V, 06/25/2021, 11:13. FINDINGS: Bones: No fractures or dislocations. Pelvic ring appears intact. No suspicious bony lesions. Bilateral hip arthroplasties are present. Hardware is intact. Soft tissues: The visualized bowel gas pattern is normal. No suspicious soft tissue calcifications. IMPRESSION: Bilateral hip arthroplasties as above. Otherwise, unremarkable. Dictated by: Lissy Fuentes M.D. on 01/21/2022 at 12:43 Approved by: Lissy Fuentes M.D. on 01/21/2022 at 12:44
== END ==
PROVIDERS: PCP Family Medicine; Referring Provider Orthopaedic Surgery; Visit Provider Orthopaedic Surgery
DX: M70.61 Trochanteric bursitis, right hip (principal); Z96.641 Presence of right artificial hip joint; Z96.642 Presence of left artificial hip joint
CPT/HCPCS: 73502

== ENCOUNTER → 2022-02-13 13:07 | Outpatient (CLI) | payer OTHER, MEDICAID, SELFPAY ==
[2022-02-13 14:16] LABS: Alanine Aminotransferase 27 IU/L (<35); Albumin 3.2 g/dL (3.5-5.0); Albumin Globulin Ratio 0.8 (1.0-2.8); Alkaline Phosphatase 334 U/L (38-126); Aspartate Aminotransferase 90 IU/L (14-36); Bilirubin Total 0.6 mg/dL (0.2-1.3); Calcium 8.7 mg/dL (8.4-10.2); Chloride 84 mmol/L (98-107); Estimated Glomerular Filt Rate > 60 mL/min (>60); Globulin 4.1 g/dL (1.7-4.1); Glucose 102 mg/dL (70-100); HEMOLYSIS < 15 (0-50); Sodium 135 mmol/L (137-145); Total Protein 7.3 g/dL (6.3-8.2)
[2022-02-13 14:17] LABS: BUN Creatinine Ratio 2.4 (6-22); Blood Urea Nitrogen 2 mg/dL (7-17)
[2022-02-13 14:42] LABS: Potassium 2.4 mmol/L (3.4-5.1)
[2022-02-13 14:43] LABS: Carbon Dioxide 42 mmol/L (22-32)
[2022-02-13 14:46] LABS: TSH w/ Reflex to FT4 1.26 uIU/mL (0.47-4.68)
[2022-02-13 16:03] LABS: Magnesium 1.7 mg/dL (1.6-2.3)
[2022-02-14 05:26] LABS: Parathyroid Hormone Int 51 pg/mL (15-65)
== END ==
PROVIDERS: PCP Family Medicine; Referring Provider Internal Medicine Endocrinology, Diabetes & Metabolism; Visit Provider Internal Medicine Endocrinology, Diabetes & Metabolism
DX: M80.80XA Other osteoporosis with current pathological fracture, unspecified site, initial encounter for fracture (principal); M87.051 Idiopathic aseptic necrosis of right femur; M87.052 Idiopathic aseptic necrosis of left femur
CPT/HCPCS: 36415; 80053; 82306; 83735; 83970; 84443

== ENCOUNTER → 2022-02-21 11:13 | Outpatient (CLI) | payer OTHER, MEDICAID, SELFPAY ==
[2022-02-21 15:19] LABS: Collection Time Urine 24 Hours; Creatinine 24 Hour Urine 468 mg/day (800-1800); Creatinine Urine Random 23.4 mg/dL; Total Volume Urine 2000 mL
[2022-02-21 15:40] LABS: Calcium 24 Hour Urine 52 mg/day (100-300); Calcium Urine Random 2.6 mg/dL; Collection Time Urine 24 Hours; Total Volume Urine 2000 mL
== END ==
PROVIDERS: PCP Family Medicine; Referring Provider Internal Medicine Endocrinology, Diabetes & Metabolism; Visit Provider Internal Medicine Endocrinology, Diabetes & Metabolism
DX: M87.051 Idiopathic aseptic necrosis of right femur (principal); M87.052 Idiopathic aseptic necrosis of left femur
CPT/HCPCS: 82340; 82570

== ENCOUNTER → 2022-04-09 14:51 | Outpatient (CLI) | payer OTHER, MEDICAID, SELFPAY ==
[2022-04-09 16:05] LABS: Alanine Aminotransferase 36 IU/L (<35); Albumin 2.8 g/dL (3.5-5.0); Albumin Globulin Ratio 0.8 (1.0-2.8); Alkaline Phosphatase 292 U/L (38-126); Aspartate Aminotransferase 122 IU/L (14-36); Bilirubin Total 0.7 mg/dL (0.2-1.3); Carbon Dioxide 32 mmol/L (22-32); Chloride 94 mmol/L (98-107); Estimated Glomerular Filt Rate > 60 mL/min (>60); Globulin 3.4 g/dL (1.7-4.1); Glucose 113 mg/dL (70-100); HEMOLYSIS < 15 (0-50); Magnesium 2.1 mg/dL (1.6-2.3); Potassium 3.5 mmol/L (3.4-5.1); Sodium 134 mmol/L (137-145); Total Protein 6.2 g/dL (6.3-8.2)
[2022-04-09 16:07] LABS: BUN Creatinine Ratio 2.8 (6-22); Blood Urea Nitrogen 2 mg/dL (7-17)
== END ==
PROVIDERS: PCP Family Medicine; Referring Provider Family Medicine; Visit Provider Family Medicine
DX: E46 Unspecified protein-calorie malnutrition (principal); E87.6 Hypokalemia; E83.42 Hypomagnesemia; F10.20 Alcohol dependence, uncomplicated
CPT/HCPCS: 36415; 80053; 83735

== ENCOUNTER → 2022-04-30 12:51 | Outpatient (CLI) | payer OTHER, MEDICAID, SELFPAY ==
[2022-04-30 14:03] LABS: Alanine Aminotransferase 50 IU/L (<35); Albumin 2.9 g/dL (3.5-5.0); Albumin Globulin Ratio 0.8 (1.0-2.8); Alkaline Phosphatase 363 U/L (38-126); Aspartate Aminotransferase 153 IU/L (14-36); Calcium 8.6 mg/dL (8.4-10.2); Carbon Dioxide 31 mmol/L (22-32); Chloride 103 mmol/L (98-107); Estimated Glomerular Filt Rate > 60 mL/min (>60); Globulin 3.7 g/dL (1.7-4.1); Glucose 100 mg/dL (70-100); HEMOLYSIS < 15 (0-50); Potassium 3.9 mmol/L (3.4-5.1); Sodium 138 mmol/L (137-145); Total Protein 6.6 g/dL (6.3-8.2)
[2022-04-30 14:04] LABS: BUN Creatinine Ratio 3.5 (6-22); Blood Urea Nitrogen 2 mg/dL (7-17)
[2022-05-09 17:38] LABS: Vitamin D 25 Hydroxy (D3) 98.7 ng/mL (30.0-100.0)
== END ==
PROVIDERS: PCP Family Medicine; Referring Provider Internal Medicine Endocrinology, Diabetes & Metabolism; Visit Provider Internal Medicine Endocrinology, Diabetes & Metabolism
DX: M80.80XA Other osteoporosis with current pathological fracture, unspecified site, initial encounter for fracture (principal)
CPT/HCPCS: 36415; 80053; 82306

== ENCOUNTER → 2022-06-22 12:02 | Outpatient (CLI) | payer OTHER, MEDICAID, SELFPAY ==
[2022-06-23 12:33] LABS: Parathyroid Hormone Int 39 pg/mL (15-65)
[2022-06-25 11:44] LABS: N-Telopeptide 20.5 nmol BCE/L (6.2-19.0)
== END ==
PROVIDERS: PCP Family Medicine; Referring Provider Internal Medicine Endocrinology, Diabetes & Metabolism; Visit Provider Internal Medicine Endocrinology, Diabetes & Metabolism
DX: M80.80XA Other osteoporosis with current pathological fracture, unspecified site, initial encounter for fracture (principal)
CPT/HCPCS: 36415; 82523; 83970

== ENCOUNTER → 2022-08-13 12:47 | Outpatient (CLI) | payer OTHER, MEDICAID, SELFPAY ==
[2022-08-14 07:42] LABS: Parathyroid Hormone Int 58 pg/mL (15-65)
[2022-08-20 09:36] LABS: N-Telopeptide 16.7 nmol BCE/L (6.2-19.0)
== END ==
PROVIDERS: PCP Family Medicine; Referring Provider Internal Medicine Endocrinology, Diabetes & Metabolism; Visit Provider Internal Medicine Endocrinology, Diabetes & Metabolism
DX: M80.80XA Other osteoporosis with current pathological fracture, unspecified site, initial encounter for fracture (principal)
CPT/HCPCS: 36415; 82523; 83970

== ENCOUNTER → 2022-08-29 13:20 | Outpatient (CLI) | payer OTHER, MEDICAID, SELFPAY ==
[2022-08-29 14:47] LABS: BUN Creatinine Ratio 6.4 (6-22); Blood Urea Nitrogen 3 mg/dL (7-17); Calcium 8.2 mg/dL (8.4-10.2); Carbon Dioxide 23 mmol/L (22-32); Chloride 107 mmol/L (98-107); Estimated Glomerular Filt Rate > 60 mL/min (>60); Glucose 111 mg/dL (70-100); HEMOLYSIS < 15 (0-50); Potassium 3.6 mmol/L (3.4-5.1); Sodium 137 mmol/L (137-145)
[2022-08-29 15:55] LABS: Vitamin D 25 Hydroxy (D3) 92.6 ng/mL (30.0-100.0)
== END ==
PROVIDERS: PCP Family Medicine; Referring Provider Internal Medicine Endocrinology, Diabetes & Metabolism; Visit Provider Internal Medicine Endocrinology, Diabetes & Metabolism
DX: M80.80XD Other osteoporosis with current pathological fracture, unspecified site, subsequent encounter for fracture with routine healing (principal)
CPT/HCPCS: 36415; 80048; 82306

== ENCOUNTER → 2022-09-19 11:58 | Outpatient (CLI) | payer OTHER, MEDICAID, SELFPAY ==
[2022-09-19 13:44] LABS: Hematocrit 37.8 % (36-46); Hemoglobin 12.7 g/dL (12.0-16.0); Mean Corpuscular HGB Conc 33.6 % (30-36); Mean Corpuscular Hemoglobin 33.1 PG (26-34); Mean Corpuscular Volume 98.7 fL (80-100); Platelet Count 216 X10^3/uL (150-400); Red Blood Cell Count 3.83 X10^6/uL (4.0-5.2); Red Cell Distribution Width 15.3 % (11.6-14.8)
[2022-09-19 13:54] LABS: INR 1.1 (0.9-1.3); Prothrombin Time 12.2 SECONDS (10.1-12.7)
[2022-09-19 14:06] LABS: Add Manual Diff / Slide Review YES; White Blood Cell Count 1.9 X10^3/uL (4.5-11.0)
[2022-09-19 14:07] LABS: Iron 116 ug/dL (37-170)
[2022-09-19 14:09] LABS: Alanine Aminotransferase 38 IU/L (<35); Albumin 2.9 g/dL (3.5-5.0); Albumin Globulin Ratio 0.8 (1.0-2.8); Alkaline Phosphatase 363 U/L (38-126); Aspartate Aminotransferase 86 IU/L (14-36); BUN Creatinine Ratio 17.6 (6-22); Bilirubin Total 0.5 mg/dL (0.2-1.3); Blood Urea Nitrogen 9 mg/dL (7-17); Calcium 8.8 mg/dL (8.4-10.2); Carbon Dioxide 27 mmol/L (22-32); Chloride 101 mmol/L (98-107); Estimated Glomerular Filt Rate > 60 mL/min (>60); Globulin 3.8 g/dL (1.7-4.1); Glucose 87 mg/dL (70-100); HEMOLYSIS < 15 (0-50); Potassium 3.5 mmol/L (3.4-5.1); Sodium 137 mmol/L (137-145); Total Protein 6.7 g/dL (6.3-8.2)
[2022-09-19 14:17] LABS: High Sensitivity CRP - Cardiac 1.2 mg/L (1.0-3.0); Total Iron Binding Capacity 186 ug/dL (265-497)
[2022-09-19 14:25] LABS: Free T3, Triiodothyronine Free 3.15 pg/mL (2.77-5.27); Free T4, Direct Thyroxine 0.54 ng/dL (0.78-2.19)
[2022-09-19 14:38] LABS: Thyroid Stimulating Hormone 1.61 uIU/mL (0.47-4.68)
[2022-09-19 14:46] LABS: Neutrophils Absolute Manual 722 /uL (3000-5900); Total Cells Counted 50
[2022-09-19 14:47] LABS: RBC Morphology Normal Morphology
[2022-09-19 14:57] LABS: Ferritin 48 ng/mL (6-137)
[2022-09-19 15:28] LABS: Vitamin B12 > 1000 pg/mL (239-931)
[2022-09-19 15:55] LABS: Vitamin D 25 Hydroxy (D3) 86.6 ng/mL (30.0-100.0)
[2022-09-20 07:03] LABS: Homocysteine 7.7 umol/L (0.0-14.5); Triiodothyronine T3 Total 88 ng/dL (71-180)
[2022-09-20 21:43] LABS: Zinc 50 ug/dL (44-115)
== END ==
PROVIDERS: PCP Family Medicine; Referring Provider Family Medicine; Visit Provider Family Medicine
DX: K74.60 Unspecified cirrhosis of liver (principal); F50.01 Anorexia nervosa, restricting type; D64.9 Anemia, unspecified; E78.5 Hyperlipidemia, unspecified; E55.9 Vitamin D deficiency, unspecified; E03.9 Hypothyroidism, unspecified
CPT/HCPCS: 36415; 80053; 82306; 82607; 82728; 82746; 83090; 83540; 83550; 84439; 84443; 84480; 84481; 84630; 85007; 85025; 85610; 86140

== ENCOUNTER 2022-10-03 12:45 | Emergency (ER) | payer OTHER, MEDICAID, SELFPAY ==
[2022-10-03] VITALS (24 sets, daily range): BP systolic 102–127; BP diastolic 58–87; PULSE 71–90; RESP 12–24; TEMP 36.1; O2SAT 96–100; BMI 12.1
--- NOTE | 2022-10-03 13:35 | DI.RAD.S_ITS ---
PROCEDURE: XR FOOT RT MIN 3V INDICATIONS: fall pain TECHNIQUE: 3 views of the foot were acquired. COMPARISON: [facility], , XR FOOT RT MIN 3V, 04/03/2020, 11:04. FINDINGS: Bones: Mildly displaced and angulated fractures of the 2nd , 3rd, and 4th metatarsal head/neck junctions. Soft tissues: No tibiotalar joint effusion. Achilles tendon appears normal. IMPRESSION: Metacarpal fractures as above. Dictated by: Monica Jerome M.D. on 10/03/2022 at 14:13 Approved by: Monica Jerome M.D. on 10/03/2022 at 14:14
--- NOTE | 2022-10-03 13:35 | DI.RAD.S_ITS ---
PROCEDURE: XR CHEST 1V INDICATIONS: falling TECHNIQUE: One view of the chest was acquired. COMPARISON: None. FINDINGS: Surgical changes and devices: None. Lungs and pleura: Lungs are clear. No pleural effusions or pneumothorax. Mediastinum: Mediastinal contours appear normal. Heart size is normal. Bones and chest wall: No suspicious bony lesions. Overlying soft tissues appear unremarkable. IMPRESSION: No acute process. Dictated by: Monica Jerome M.D. on 10/03/2022 at 14:14 Approved by: Monica Jerome M.D. on 10/03/2022 at 14:14
--- NOTE | 2022-10-03 13:35 | DI.CT.S_ITS ---
PROCEDURE: CT HEAD/BRAIN WO CON INDICATIONS: falling TECHNIQUE: Noncontrast 4.5 mm thick angled axial sections acquired from the foramen magnum to the vertex, with coronal and sagittal reformats. For radiation dose reduction, the following was used: automated exposure control, adjustment of mA and/or kV according to patient size. COMPARISON: [facility], CT, HEAD WITHOUT CONTRAST, 12/24/2017, 17:04. [facility], CT, HEAD WITHOUT CONTRAST, 06/17/2017, 18:15. [facility], CT, HEAD WITHOUT CONTRAST, 01/19/2017, 11:26. FINDINGS: Image quality: Excellent. CSF spaces: Basal cisterns are patent. No extra-axial fluid collections. Ventricles are normal in size and shape. Brain: No midline shift. No intracranial masses or hemorrhage. Oconnor-white matter interface is normal. Skull and face: Calvarium and visualized facial bones are intact, without suspicious lesions. Sinuses: Visualized sinuses and mastoids are clear. IMPRESSION: No acute intracranial abnormality. Dictated by: Monica Jerome M.D. on 10/03/2022 at 13:57 Approved by: Monica Jerome M.D. on 10/03/2022 at 13:58
[2022-10-03 13:45] LABS: Add Manual Diff / Slide Review NO; Basophils Absolute Auto 0 /uL (0-100); Basophils Percent Auto 0.3 % (0-2); Eosinophils Absolute Auto 0 /uL (0-450); Eosinophils Percent Auto 0.1 % (2-4); Hematocrit 44.5 % (36-46); Hemoglobin 15.4 g/dL (12.0-16.0); Lymphocytes Absolute Auto 900 /uL (1100-4500); Lymphocytes Percent Auto 41.2 % (25-40); Mean Corpuscular HGB Conc 34.6 % (30-36); Mean Corpuscular Hemoglobin 33.7 PG (26-34); Mean Corpuscular Volume 97.5 fL (80-100); Monocytes Absolute Auto 400 /uL (0-900); Neutrophils Absolute Auto 900 /uL (1500-7000); Neutrophils Percent Auto 40.4 % (50-75); Platelet Count 298 X10^3/uL (150-400); Red Blood Cell Count 4.56 X10^6/uL (4.0-5.2); Red Cell Distribution Width 14.1 % (11.6-14.8); White Blood Cell Count 2.1 X10^3/uL (4.5-11.0)
[2022-10-03 13:53] LABS: Alanine Aminotransferase 57 IU/L (<35); Albumin 3.8 g/dL (3.5-5.0); Albumin Globulin Ratio 0.8 (1.0-2.8); Alkaline Phosphatase 515 U/L (38-126); Aspartate Aminotransferase 174 IU/L (14-36); BUN Creatinine Ratio 8.7 (6-22); Bilirubin Total 1.1 mg/dL (0.2-1.3); Blood Urea Nitrogen 8 mg/dL (7-17); Calcium 9.2 mg/dL (8.4-10.2); Creatine Kinase 78 U/L (30-135); Estimated Glomerular Filt Rate > 60 mL/min (>60); Glucose 99 mg/dL (70-100); HEMOLYSIS 26 (0-50); Lipase 16 U/L (23-300); Magnesium 1.9 mg/dL (1.6-2.3); Phosphorous 4.2 mg/dL (2.5-4.5); Sodium 130 mmol/L (137-145); Total Protein 8.8 g/dL (6.3-8.2)
[2022-10-03 13:54] LABS: Ethanol (ETOH) 14 mg/dL
--- NOTE | 2022-10-03 13:55 | ED.DIZZY ---
HPI - Dizziness General Chief Complaint: Dizziness Stated Complaint: dizzy for 3 nights, fell 1 wk ago and inju rt foot Time Seen by Provider: 10/03/22 13:01 Source: patient and family Mode of arrival: Wheelchair History of Present Illness HPI Narrative: Patient is a 36-year-old female history of multiple medical problems including stroke, alcohol abuse, liver cirrhosis, eating disorder presenting today with 3 falls in the last couple of days. She stands up she gets very lightheaded and dizzy she notes that she is about to fall. She has injured her right foot in the process and she did hit her head once. She is not on any antiplatelet or anticoagulation medication. She reports that she has decrease in appetite over last couple of days but denies any fever or chills. No cough. She does have palpitations when she is about to pass out. She does drink some water she admits that she is not drinking any alcohol and if she does it is extremely limited. She says over last couple days her appetite is decreased and she is definitely not eating as much. Related Data Home Medications Medication Instructions Recorded Confirmed cholecalciferol (vitamin D3) 25 1,000 unit PO DAILY ##0 09/18/17 04/09/22 mcg (1,000 unit) tablet (Vitamin D3) calcium carbonate 500 mg calcium 500 mg PO DAILY 03/22/21 04/09/22 (1,250 mg) tablet furosemide 20 mg tablet 20 mg PO DAILY 03/22/21 04/09/22 amitriptyline 75 mg tablet 100 mg PO DAILY 08/28/21 04/09/22 omeprazole 40 mg capsule,delayed 20 mg PO DAILY 08/28/21 04/09/22 release Previous Rx's Medication Instructions Recorded famotidine 20 mg tablet 20 mg PO BID #180 tabs 11/21/20 lactulose 20 gram/30 mL oral 20 g (30 mL) PO BID #3,000 mL 11/21/20 solution lorazepam 1 mg tablet 1 mg PO BIDP PRN Anxiety #30 tabs 08/28/21 ondansetron HCl 4 mg tablet 4 mg PO QID PRN Nausea And 08/28/21 Vomiting #30 tabs pantoprazole 40 mg tablet,delayed 40 mg PO DAILY #90 tabs 08/28/21 release potassium chloride 20 mEq 20 meq PO BID #180 tabs 04/08/22 tablet,extended release(part/cryst) alendronate 70 mg tablet 70 mg PO QWEEK #12 tabs 01/03/22 hydroxyzine HCl 25 mg tablet 25 mg PO BID PRN itching #20 tabs 05/24/22 prednisone 10 mg tablet 20 mg PO DAILY #10 tabs 05/24/22 clobetasol 0.05 % topical cream See Rx Instructions .Route 05/28/22 .COMPLEX #30 grams acamprosate 333 mg tablet,delayed See Rx Instructions .Route 09/02/22 release .COMPLEX #180 tabs Allergies Allergy/AdvReac Type Severity Reaction Status Date / Time gabapentin AdvReac Intermediate Mental Verified 04/09/22 14:17 status changes Review of Systems Review of Systems ROS Unobtainable: All systems reviewed & are unremarkable except as noted in HPI and below Patient History Medical History (Updated 10/03/22 @ 18:54 by Pattie Kendall DO) Alcoholism Alcoholism in remission Ankle pain, right Anorexia Anorexia nervosa Anxiety Caloric malnutrition Depression GERD (gastroesophageal reflux disease) Neuropathy Social History Smoking Status: Never smoker Smoking Status: Never smoker alcohol intake frequency: 0-2 drinks per day Substance Use Type: does not use Exam Initial Vital Signs Initial Vital Signs: Vital Signs Temperature 96.9 F L 10/03/22 12:49 Pulse Rate 90 10/03/22 12:49 Respiratory Rate 18 10/03/22 12:49 Blood Pressure 108/58 L 10/03/22 12:49 Pulse Oximetry 98 10/03/22 12:49 Oxygen Delivery Method 10/03/22 12:49 GENERAL: Alert thin cachectic 36-year-old female well dressed HEENT: Head atraumatic,EOMI, pupils reactive, face symmetric, moist mucous membranes CARDIOVASCULAR: Regular rate and rhythm without murmurs, rubs or gallops. RESPIRATORY: Breath sounds equal bilaterally, no wheezes rales or rhonchi. ABDOMEN: Soft, nontender. Normoactive bowel sounds all 4 quadrants. No guarding or rebound. EXTREMITIES: Normal range of motion, no clubbing or edema. Neurovascularly intact Strong distal pedal pulse both lower extremity NEUROLOGICAL: Alert and oriented x4.Normal gait and speech. 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 SKIN: Right foot contusion Course Orders Ordered: ED Orders 10/03/22 13:05 Complete Blood Count AUTO DIFF Stat Comprehensive Metabolic Panel Stat ETOH [Ethanol (ETOH)] Stat Lipase Stat MAG [Magnesium] Stat PHOS [Phosphorous] Stat Troponin & CK Cardiac Panel Stat 10/03/22 13:35 CT head/brain wo con Stat XR chest 1V Stat XR foot RT min 3V Stat 10/03/22 14:32 EKG-12 Lead Stat 10/03/22 17:34 CMP [Comprehensive Metabolic Panel] Stat Discontinued Medications Acetaminophen (Acetaminophen 325 Mg Tablet) 650 mg PO NOW ONE Stop: 10/03/22 13:36 Last Admin: 10/03/22 14:04 Dose: 650 mg Documented By: RB Sodium Chloride (Normal Saline 0.9%) 1,000 mls @ 150 mls/hr IV CONT JACINTO Last Infusion: 10/03/22 17:02 Dose: 0 mls/hr Documented By: Infusion: 10/03/22 15:48 Dose: 400 mls/hr Documented By: Admin: 10/03/22 14:04 Dose: 150 mls/hr Documented By: RB POTASSIUM CHLORIDE IN WATER (Potassium Cl 10 Meq/100 Ml Suri) 10 meq in 100 mls @ 100 mls/hr IV Q1H JACINTO Stop: 10/03/22 18:14 Last Infusion: 10/03/22 19:10 Dose: 0 mls/hr Documented By: Admin: 10/03/22 18:15 Dose: 100 mls/hr Documented By: Infusion: 10/03/22 18:12 Dose: 0 mls/hr Documented By: Admin: 10/03/22 17:00 Dose: 100 mls/hr Documented By: Infusion: 10/03/22 16:59 Dose: 0 mls/hr Documented By: Admin: 10/03/22 16:01 Dose: 100 mls/hr Documented By: Infusion: 10/03/22 15:59 Dose: 0 mls/hr Documented By: Infusion: 10/03/22 15:44 Dose: 100 mls/hr Documented By: Infusion: 10/03/22 15:31 Dose: 0 mls/hr Documented By: Admin: 10/03/22 14:34 Dose: 100 mls/hr Documented By: RB Sodium Chloride (Normal Saline 0.9%) 1,000 mls @ 1,000 mls/hr IV BOLUS ONE Stop: 10/03/22 16:47 Last Admin: 10/03/22 16:07 Dose: Not Given Documented By: RAGHAVENDRA Sodium Chloride (Normal Saline 0.9%) 1,000 mls @ 1,000 mls/hr IV BOLUS ONE Stop: 10/03/22 17:59 Last Infusion: 10/03/22 19:08 Dose: 0 mls/hr Documented By: Admin: 10/03/22 17:02 Dose: 1,000 mls/hr Documented By: RAGHAVENDRA Vital Signs Vital signs: Vital Signs - 8 hr 10/03/22 12:49 10/03/22 13:11 10/03/22 13:11 Temperature 96.9 F L Pulse Rate 90 76 Respiratory Rate 18 Blood Pressure 108/58 L 106/65 Pulse Oximetry 98 Oxygen Delivery Method Room Air 10/03/22 13:30 10/03/22 13:30 10/03/22 14:00 Temperature Pulse Rate 74 77 Respiratory Rate 22 12 Blood Pressure 110/84 Pulse Oximetry 99 100 Oxygen Delivery Method 10/03/22 14:30 10/03/22 15:00 10/03/22 15:20 Temperature Pulse Rate 73 71 Respiratory Rate 22 22 Blood Pressure 111/84 Pulse Oximetry 99 100 Oxygen Delivery Method 10/03/22 15:20 10/03/22 15:40 10/03/22 15:40 Temperature Pulse Rate 78 81 Respiratory Rate 24 Blood Pressure 115/86 Pulse Oximetry 100 99 Oxygen Delivery Method 10/03/22 15:45 10/03/22 15:45 10/03/22 16:00 Temperature Pulse Rate 81 Respiratory Rate 15 Blood Pressure 115/85 111/84 Pulse Oximetry 100 Oxygen Delivery Method 10/03/22 16:00 10/03/22 16:15 10/03/22 16:15 Temperature Pulse Rate 73 76 Respiratory Rate 21 23 Blood Pressure 115/84 Pulse Oximetry 100 100 Oxygen Delivery Method 10/03/22 16:30 10/03/22 16:30 10/03/22 16:45 Temperature Pulse Rate 71 Respiratory Rate 21 Blood Pressure 120/85 113/84 Pulse Oximetry 100 Oxygen Delivery Method 10/03/22 16:45 10/03/22 17:00 10/03/22 17:00 Temperature Pulse Rate 73 72 Respiratory Rate 18 21 Blood Pressure 118/87 Pulse Oximetry 100 100 Oxygen Delivery Method 10/03/22 17:16 10/03/22 17:16 10/03/22 17:30 Temperature Pulse Rate 75 75 Respiratory Rate 19 21 Blood Pressure 127/79 Pulse Oximetry 96 100 Oxygen Delivery Method 10/03/22 17:37 10/03/22 17:37 10/03/22 17:45 Temperature Pulse Rate 72 75 Respiratory Rate 20 23 Blood Pressure 108/72 Pulse Oximetry 100 100 Oxygen Delivery Method 10/03/22 17:45 10/03/22 18:00 10/03/22 18:00 Temperature Pulse Rate 73 Respiratory Rate 23 Blood Pressure 109/74 111/77 Pulse Oximetry 100 Oxygen Delivery Method 10/03/22 18:15 10/03/22 18:15 10/03/22 18:30 Temperature Pulse Rate 73 76 Respiratory Rate 20 23 Blood Pressure 114/82 Pulse Oximetry 100 100 Oxygen Delivery Method 10/03/22 18:31 10/03/22 18:31 10/03/22 18:45 Temperature Pulse Rate 74 77 Respiratory Rate 21 17 Blood Pressure 106/75 Pulse Oximetry 100 96 Oxygen Delivery Method 10/03/22 18:45 10/03/22 19:00 10/03/22 19:00 Temperature Pulse Rate 73 Respiratory Rate 20 Blood Pressure 102/80 109/82 Pulse Oximetry 100 Oxygen Delivery Method MDM - Dizziness Lab Data Result diagrams: 10/03/22 13:05 10/03/22 17:34 Labs: Lab Results 10/03/22 10/03/22 10/03/22 Range/Units 13:05 13:05 13:05 WBC 2.1 L (4.5-11.0) X10^3/uL RBC 4.56 (4.0-5.2) X10^6/uL Hgb 15.4 (12.0-16.0) g/dL Hct 44.5 (36-46) % MCV 97.5 (80-100) fL MCH 33.7 (26-34) PG MCHC 34.6 (30-36) % RDW 14.1 (11.6-14.8) % Plt Count 298 (150-400) X10^3/uL Neut % (Auto) 40.4 L (50-75) % Lymph % (Auto) 41.2 H (25-40) % [place] % (Auto) 18.0 H (3-14) % Eos % (Auto) 0.1 L (2-4) % Baso % (Auto) 0.3 (0-2) % Neut # (Auto) 900 L (5886-3629) /uL Lymph # (Auto) 900 L (2989-3990) /uL [place] # (Auto) 400 (0-900) /uL Eos # (Auto) 0 (0-450) /uL Baso # (Auto) 0 (0-100) /uL Sodium 130 L (137-145) mmol/L Potassium 2.6 L* (3.4-5.1) mmol/L Chloride 75 L* (98-107) mmol/L Carbon Dioxide 41 H* (22-32) mmol/L BUN 8 (7-17) mg/dL Creatinine 0.92 (0.52-1.04) mg/dL Estimated GFR > 60 (>60) mL/min BUN/Creatinine Ratio 8.7 (6-22) Glucose 99 (70-100) mg/dL Calcium 9.2 (8.4-10.2) mg/dL Phosphorus 4.2 (2.5-4.5) mg/dL Magnesium 1.9 (1.6-2.3) mg/dL Total Bilirubin 1.1 (0.2-1.3) mg/dL AST 174 H (14-36) IU/L ALT 57 H (<35) IU/L Alkaline Phosphatase 515 H (38-126) U/L Total Creatine Kinase 78 (30-135) U/L CK-MB (CK-2) TNP CK-MB (CK-2) Rel Index TNP Troponin I 0.015 (0.01-0.034) ng/mL Total Protein 8.8 H (6.3-8.2) g/dL Albumin 3.8 (3.5-5.0) g/dL Globulin 5.0 H (1.7-4.1) g/dL Albumin/Globulin Ratio 0.8 L (1.0-2.8) Lipase 16 L (23-300) U/L Ethyl Alcohol 14 H ( - 10) mg/dL 10/03/22 Range/Units 17:34 WBC (4.5-11.0) X10^3/uL RBC (4.0-5.2) X10^6/uL Hgb (12.0-16.0) g/dL Hct (36-46) % MCV (80-100) fL MCH (26-34) PG MCHC (30-36) % RDW (11.6-14.8) % Plt Count (150-400) X10^3/uL Neut % (Auto) (50-75) % Lymph % (Auto) (25-40) % [place] % (Auto) (3-14) % Eos % (Auto) (2-4) % Baso % (Auto) (0-2) % Neut # (Auto) (5241-6135) /uL Lymph # (Auto) (3930-3318) /uL [place] # (Auto) (0-900) /uL Eos # (Auto) (0-450) /uL Baso # (Auto) (0-100) /uL Sodium 128 L (137-145) mmol/L Potassium 3.1 L (3.4-5.1) mmol/L Chloride 88 L (98-107) mmol/L Carbon Dioxide 34 H (22-32) mmol/L BUN 7 (7-17) mg/dL Creatinine 0.77 (0.52-1.04) mg/dL Estimated GFR > 60 (>60) mL/min BUN/Creatinine Ratio 9.1 (6-22) Glucose 75 (70-100) mg/dL Calcium 6.7 L (8.4-10.2) mg/dL Phosphorus (2.5-4.5) mg/dL Magnesium (1.6-2.3) mg/dL Total Bilirubin 0.6 (0.2-1.3) mg/dL AST 102 H (14-36) IU/L ALT 33 (<35) IU/L Alkaline Phosphatase 258 H (38-126) U/L Total Creatine Kinase (30-135) U/L CK-MB (CK-2) CK-MB (CK-2) Rel Index Troponin I (0.01-0.034) ng/mL Total Protein 5.0 L (6.3-8.2) g/dL Albumin 2.1 L (3.5-5.0) g/dL Globulin 2.9 (1.7-4.1) g/dL Albumin/Globulin Ratio 0.7 L (1.0-2.8) Lipase (23-300) U/L Ethyl Alcohol ( - 10) mg/dL Point of Care Testing Test Results Negative Glucose POC 85 Urine Dip Bedside Urine Glucose Negative Bedside Urine Bilirubin - Negative Bedside Urine Ketone - Negative Urine Specific [place] 1.000 Bedside Urine Occult Blood - Negative Bedside Urine pH 8.0 Bedside Urine Protein - Negative Bedside Urine Urobilinogen - Negative Bedside Urine Nitrite - Negative Bedside Urine Leukocytes - Negative Esterase Imaging Data CT scan - head: Radiologist's Impression: Signed Patient: Naina Wing MR#: [id number] : 1985 Acct:[id number] Age/Sex: 36 / F Date of Service: 10/03/22 Loc: ED Accession Number: [id number] ?? Procedure: CT head/brain wo con Ordering Provider: Pattie Kendall D.O. PROCEDURE:? CT HEAD/BRAIN WO CON ? INDICATIONS:? falling ? TECHNIQUE:? Noncontrast 4.5 mm thick angled axial sections acquired from the foramen magnum to the vertex, with coronal and sagittal reformats.? For radiation dose reduction, the following was used:? automated exposure control, adjustment of mA and/or kV according to patient size.? ? COMPARISON:? [facility], CT, HEAD WITHOUT CONTRAST, 12/24/2017, 17:04.? [facility], CT, HEAD WITHOUT CONTRAST, 06/17/2017, 18:15.? [facility], CT, HEAD WITHOUT CONTRAST, 01/19/2017, 11:26. ? FINDINGS:? Image quality:? Excellent.? ? CSF spaces:? Basal cisterns are patent.? No extra-axial fluid collections.? Ventricles are normal in size and shape.? ? Brain:? No midline shift.? No intracranial masses or hemorrhage.? Oconnor-white matter interface is normal.? ? Skull and face:? Calvarium and visualized facial bones are intact, without suspicious lesions.? ? Sinuses:? Visualized sinuses and mastoids are clear.? ? IMPRESSION:? No acute intracranial abnormality. ? ? Dictated by: Monica Jerome M.D. on 10/03/2022 at 13:57 ? ? Extremity x-ray #1: Radiologist's Impression: Patient: Naina Wing MR#: [id number] : 1985 Acct:[id number] Age/Sex: 36 / F Date of Service: 10/03/22 Loc: ED Accession Number: [id number] ?? Procedure: XR foot RT min 3V Ordering Provider: Pattie Kendall D.O. PROCEDURE:? XR FOOT RT MIN 3V ? INDICATIONS:? fall pain ? TECHNIQUE:? 3 views of the foot were acquired.? ? COMPARISON:? [facility], , XR FOOT RT MIN 3V, 04/03/2020, 11:04. ? FINDINGS:? ? Bones:? Mildly displaced and angulated fractures of the 2nd , 3rd, and 4th metatarsal head/neck junctions. ? Soft tissues:? No tibiotalar joint effusion.? Achilles tendon appears normal.? ? ? IMPRESSION:? Metacarpal fractures as above. ? ? Dictated by: Monica Jerome M.D. on 10/03/2022 at 14:13 ? ? Approved by: Monica Jerome M.D. on 10/03/2022 at 14:14 ? Chest x-ray: Radiologist's Impression: ?MaciejNaina L MR#: [id number] : 1985 Acct:[id number] Age/Sex: 36 / F Date of Service: 10/03/22 Loc: ED Accession Number: [id number] ?? Procedure: XR chest 1V Ordering Provider: Pattie Kendall D.O. PROCEDURE:? XR CHEST 1V ? INDICATIONS:? falling ? TECHNIQUE:? One view of the chest was acquired.? ? COMPARISON:? None. ? FINDINGS:? ? Surgical changes and devices:? None.? ? Lungs and pleura:? Lungs are clear.? No pleural effusions or pneumothorax.? ? Mediastinum:? Mediastinal contours appear normal.? Heart size is normal.? ? Bones and chest wall:? No suspicious bony lesions.? Overlying soft tissues appear unremarkable.? ? IMPRESSION:? No acute process.? ? ? Dictated by: Monica Jerome M.D. on 10/03/2022 at 14:14 ? ? ECG Data Interpretation: Normal sinus rhythm rate 72 NH interval 128 QRS [address] changes artifact noted similar to previous EKGs mild wandering baseline MDM Narrative Medical decision making narrative: Patient 36-year-old female history of multiple comorbidities including alcohol abuse CVA significant anorexia body dysmorphia presenting with generalized weakness and falls today. She has fallen and broke toes 2,3,4, she is given orthopedic shoe. Blood work does show significant dehydration with potassium of 2.6 bicarb elevated at 41, chloride decreased I have creatinine is actually within normal limits and she does have elevated liver enzymes similar to previous without elevation of bilirubin, or right upper quadrant pain. She is feeling dizzy and weak this is likely from poor intake. She has no intention of wanting to go to treatment facility for eating disorder. She reports that she is not drinking very much alcohol her alcohol level today is 14. This may or may not be contributing to her falls and dizziness as well. Long discussion with patient about how staying hydrated will help and how nutrients and electrolytes also help make you feel better she understands this. She did receive 2 L of normal saline along with 40 mEq of IV potassium. She ambulated to the restroom with a walker. She is a walker at home. Head CT and other imaging or also negative. Briefly did discuss with Dr. Morales hospitalists about admission versus discharge home at this time he recommended the treatment given above fluids and replacement and reassess. Repeat blood work actually shows significant improvement with a bicarb now a 34, chloride 88 and potassium of 3.1. She takes oral potassium daily any way. At this time she agrees to go home and promises to use her walker MDM CC: Weakness dizziness Complicating co-morbidities: CVA, alcohol abuse, anorexia Corroborating data: Previous endocrinology consultation from 08/23/2022 Data collected from: Chart Medical records reviewed: Yes Differential considered: Electrolyte abnormality, intracranial hemorrhage, infection, Exam documented above, pertinent findings include: Cachexia, right foot bruising Lab Test results independently reviewed as above. Pertinent findings: As above Independently reviewed EKG as above Imaging studies independently reviewed: Consultations: Hospitalist Dr. Morales Treatments: 2 L normal saline, 40 mEq potassium Re-evaluations: Ambulating in the ED Discussion: As above Diagnosis: Dehydration hypokalemia Disposition: see below, along with detailed discharge instructions that have been reviewed with patient as well as indications for ED re-evaluation and additional outpatient follow up Discharge Plan Departure Patient Disposition: Home Clinical Impression: Hypokalemia, Acute dehydration Fracture of right toe Qualifiers: Encounter type: initial encounter Toe: lesser toe Fracture type: closed Fracture alignment: displaced Instructions: DI for Dehydration -- Adult Activity Restrictions/Additional Instructions: *You have been diagnosed with right foot fracture, low potassium, dehydration *What to do: It is very important to stay hydrated so that you do not get dizzy and fall. Please have your electrolytes and potassium rechecked with PCP Friday. Where orthopedic shoe while ambulating may need to wear it as night as well follow-up with orthopedic. *Continue to take medications as directed *Follow up with your primary care provider in 2-3 days or call [phone] Follow-up with Orthopedics, call tomorrow to schedule follow-up appointment for 1-2 week to be sure bones and foot are properly healing *Return to ER if you should have increasing falls dizziness weakness confusion or any new, worsening or concerning symptoms Prescriptions: No Action cholecalciferol (vitamin D3) [Vitamin D3] 1,000 UNIT tablet 1,000 unit PO DAILY Qty: 0 potassium chloride 20 mEq tablet,ER particles/crystals 20 meq PO BID Qty: 180 3RF alendronate 70 mg tablet 70 mg PO QWEEK Qty: 12 3RF Rx Instructions: Thrsdays hydroxyzine HCl 25 mg tablet 25 mg PO BID PRN (Reason: itching) Qty: 20 0RF prednisone 10 mg tablet 20 mg PO DAILY Qty: 10 0RF Rx Instructions: 2 tabs for 3 days, then 1 tab for 4 days clobetasol 0.05 % cream See Rx Instructions .ROUTE .COMPLEX Qty: 30 3RF Dose Instruction: APPLY TOPICALLY TO THE AFFECTED AREA TWICE DAILY FOR 2 WEEKS Rx Instructions: APPLY TOPICALLY TO THE AFFECTED AREA TWICE DAILY FOR 2 WEEKS acamprosate 333 mg tablet,delayed release (DR/EC) See Rx Instructions .ROUTE .COMPLEX Qty: 180 0RF Dose Instruction: TAKE 1 TABLET BY MOUTH TWICE A DAY. TAKE WITH MID-DAY MEAL AND EVENING MEAL Rx Instructions: TAKE 1 TABLET BY MOUTH TWICE A DAY. TAKE WITH MID-DAY MEAL AND EVENING MEAL famotidine 20 mg tablet 20 mg PO BID Qty: 180 3RF lactulose 20 gram/30 mL solution 20 g PO BID Qty: 3000 5RF calcium carbonate 500 mg calcium (1,250 mg) tablet 500 mg PO DAILY furosemide 20 mg tablet 20 mg PO DAILY Rx Instructions: Patient not sure of dose, must confirm before filling amitriptyline 75 mg tablet 100 mg PO DAILY Rx Instructions: Take one tablet once daily in the morning. omeprazole 40 mg capsule,delayed release(DR/EC) 20 mg PO DAILY lorazepam 1 mg tablet 1 mg PO BIDP PRN (Reason: Anxiety) Qty: 30 0RF pantoprazole 40 mg tablet,delayed release (DR/EC) 40 mg PO DAILY Qty: 90 2RF Rx Instructions: Omeprazole not covered by insurance ondansetron HCl 4 mg tablet 4 mg PO QID PRN (Reason: Nausea And Vomiting) Qty: 30 4RF Referrals: [facility] [Provider Group] Andrew Herrera MD [Primary Care Provider] - Stand Alone Forms: Patient Portal/API
[2022-10-03 14:03] LABS: Carbon Dioxide 41 mmol/L (22-32); Chloride 75 mmol/L (98-107); Potassium 2.6 mmol/L (3.4-5.1)
[2022-10-03 14:04] LABS: Troponin I 0.015 ng/mL (0.01-0.034)
[2022-10-03] MEDS: SODIUM CHLORIDE 0.9% 1,000 ML 150 ML IV (14:04)
[2022-10-03] MEDS: ACETAMINOPHEN 325 MG TABLET 650 MG PO (14:04)
[2022-10-03] MEDS: POTASSIUM CHLORIDE IN WATER 10 MEQ/100 ML PIGGYBACK 100 MEQ IV ×4 (14:34→18:15)
--- NOTE | 2022-10-03 15:48 | PC.NURSE ---
Provider Dr. Kendall asked that I increase this patient normal saline 0.9 fluids to 400ml and hour. Increased rate on existing continuos normal saline order.
[2022-10-03] MEDS: SODIUM CHLORIDE 0.9% 1,000 ML 1000 ML IV (17:02)
[2022-10-03 17:58] LABS: Alanine Aminotransferase 33 IU/L (<35); Albumin 2.1 g/dL (3.5-5.0); Albumin Globulin Ratio 0.7 (1.0-2.8); Alkaline Phosphatase 258 U/L (38-126); Aspartate Aminotransferase 102 IU/L (14-36); BUN Creatinine Ratio 9.1 (6-22); Bilirubin Total 0.6 mg/dL (0.2-1.3); Blood Urea Nitrogen 7 mg/dL (7-17); Calcium 6.7 mg/dL (8.4-10.2); Carbon Dioxide 34 mmol/L (22-32); Chloride 88 mmol/L (98-107); Estimated Glomerular Filt Rate > 60 mL/min (>60); Globulin 2.9 g/dL (1.7-4.1); Glucose 75 mg/dL (70-100); HEMOLYSIS < 15 (0-50); Potassium 3.1 mmol/L (3.4-5.1); Sodium 128 mmol/L (137-145)
== END 2022-10-03 19:23 | disposition home or self-care (01) ==
PROVIDERS: Emergency Provider Emergency Medicine; PCP Family Medicine
DX: S92.501A Displaced unspecified fracture of right lesser toe(s), initial encounter for closed fracture (principal); E87.6 Hypokalemia; E86.0 Dehydration; R29.6 Repeated falls; W18.30XA Fall on same level, unspecified, initial encounter
CPT/HCPCS: 36415; 70450; 71045; 73630; 80053; 80320; 81003; 81025; 82550; 83690; 83735; 84100; 84484; 85025; 93005; 93010; 96365; 96366; 99284; 99285

== ENCOUNTER → 2022-10-14 13:53 | Outpatient (CLI) | payer OTHER, MEDICAID, SELFPAY ==
[2022-10-14 14:42] LABS: Hematocrit 35.7 % (36-46); Hemoglobin 12.1 g/dL (12.0-16.0); Mean Corpuscular Hemoglobin 33.9 PG (26-34); Mean Corpuscular Volume 99.7 fL (80-100); Platelet Count 261 X10^3/uL (150-400); Red Blood Cell Count 3.58 X10^6/uL (4.0-5.2); Red Cell Distribution Width 14.1 % (11.6-14.8)
[2022-10-14 14:45] LABS: White Blood Cell Count 1.6 X10^3/uL (4.5-11.0)
[2022-10-14 14:58] LABS: Calcium 8.1 mg/dL (8.4-10.2); Carbon Dioxide 29 mmol/L (22-32); Chloride 102 mmol/L (98-107); Estimated Glomerular Filt Rate > 60 mL/min (>60); Glucose 109 mg/dL (70-100); HEMOLYSIS < 15 (0-50); Sodium 141 mmol/L (137-145)
[2022-10-14 14:59] LABS: Alanine Aminotransferase 57 IU/L (<35); Albumin 2.5 g/dL (3.5-5.0); Albumin Globulin Ratio 0.6 (1.0-2.8); Alkaline Phosphatase 535 U/L (38-126); Aspartate Aminotransferase 132 IU/L (14-36); BUN Creatinine Ratio 3.5 (6-22); Bilirubin Total 0.6 mg/dL (0.2-1.3); Blood Urea Nitrogen < 2 mg/dL (7-17); Carbon Dioxide 28 mmol/L (22-32); Chloride 102 mmol/L (98-107); Estimated Glomerular Filt Rate > 60 mL/min (>60); Globulin 3.9 g/dL (1.7-4.1); Glucose 109 mg/dL (70-100); HEMOLYSIS < 15 (0-50); Sodium 139 mmol/L (137-145); Total Protein 6.4 g/dL (6.3-8.2)
[2022-10-14 15:00] LABS: BUN Creatinine Ratio 3.6 (6-22); Blood Urea Nitrogen < 2 mg/dL (7-17)
[2022-10-14 15:23] LABS: Neutrophils Absolute Manual 608 /uL (3000-5900); RBC Morphology Normal Morphology; Total Cells Counted 100
[2022-10-14 16:47] LABS: Vitamin D 25 Hydroxy (D3) 91.8 ng/mL (30.0-100.0)
== END ==
PROVIDERS: PCP Family Medicine; Referring Provider Internal Medicine Endocrinology, Diabetes & Metabolism; Visit Provider Internal Medicine Endocrinology, Diabetes & Metabolism
DX: M80.80XD Other osteoporosis with current pathological fracture, unspecified site, subsequent encounter for fracture with routine healing (principal); E46 Unspecified protein-calorie malnutrition; F50.00 Anorexia nervosa, unspecified; K70.30 Alcoholic cirrhosis of liver without ascites; K72.10 Chronic hepatic failure without coma
CPT/HCPCS: 36415; 80048; 80053; 82306; 85025

== ENCOUNTER → 2022-10-30 13:44 | Outpatient (CLI) | payer OTHER, MEDICAID, SELFPAY ==
[2022-10-30 14:30] LABS: Hematocrit 34.6 % (36-46); Hemoglobin 11.4 g/dL (12.0-16.0); Mean Corpuscular HGB Conc 32.9 % (30-36); Mean Corpuscular Hemoglobin 33.4 PG (26-34); Mean Corpuscular Volume 101.4 fL (80-100); Platelet Count 210 X10^3/uL (150-400); Red Blood Cell Count 3.41 X10^6/uL (4.0-5.2); Red Cell Distribution Width 14.5 % (11.6-14.8)
[2022-10-30 14:51] LABS: White Blood Cell Count 1.5 X10^3/uL (4.5-11.0)
[2022-10-30 14:52] LABS: Add Manual Diff / Slide Review YES; Alanine Aminotransferase 27 IU/L (<35); Albumin 2.5 g/dL (3.5-5.0); Albumin Globulin Ratio 0.7 (1.0-2.8); Alkaline Phosphatase 387 U/L (38-126); Aspartate Aminotransferase 73 IU/L (14-36); BUN Creatinine Ratio 3.9 (6-22); Bilirubin Total 0.5 mg/dL (0.2-1.3); Blood Urea Nitrogen 2 mg/dL (7-17); Carbon Dioxide 27 mmol/L (22-32); Chloride 101 mmol/L (98-107); Estimated Glomerular Filt Rate > 60 mL/min (>60); Globulin 3.5 g/dL (1.7-4.1); Glucose 117 mg/dL (70-100); HEMOLYSIS < 15 (0-50); Potassium 3.5 mmol/L (3.4-5.1); Sodium 138 mmol/L (137-145)
[2022-10-30 15:07] LABS: Neutrophils Absolute Manual 480 /uL (3000-5900); Total Cells Counted 50
[2022-10-30 15:08] LABS: RBC Morphology Normal Morphology
== END ==
PROVIDERS: PCP Family Medicine; Referring Provider Family Medicine; Visit Provider Family Medicine
DX: E46 Unspecified protein-calorie malnutrition (principal); F10.20 Alcohol dependence, uncomplicated; F50.00 Anorexia nervosa, unspecified; K72.90 Hepatic failure, unspecified without coma
CPT/HCPCS: 36415; 80053; 85007; 85025

== ENCOUNTER → 2022-11-15 11:11 | Outpatient (CLI) | payer OTHER, MEDICAID, SELFPAY ==
[2022-11-15 12:38] LABS: Add Manual Diff / Slide Review NO; Basophils Absolute Auto 0 /uL (0-100); Basophils Percent Auto 0.6 % (0-2); Eosinophils Absolute Auto 0 /uL (0-450); Eosinophils Percent Auto 0.2 % (2-4); Hematocrit 35.5 % (36-46); Hemoglobin 11.5 g/dL (12.0-16.0); Lymphocytes Absolute Auto 600 /uL (1100-4500); Lymphocytes Percent Auto 27.2 % (25-40); Mean Corpuscular HGB Conc 32.4 % (30-36); Mean Corpuscular Hemoglobin 33.5 PG (26-34); Mean Corpuscular Volume 103.4 fL (80-100); Monocytes Absolute Auto 400 /uL (0-900); Monocytes Percent Auto 17.8 % (3-14); Neutrophils Absolute Auto 1200 /uL (1500-7000); Neutrophils Percent Auto 54.2 % (50-75); Platelet Count 196 X10^3/uL (150-400); Red Blood Cell Count 3.43 X10^6/uL (4.0-5.2); Red Cell Distribution Width 15.4 % (11.6-14.8); White Blood Cell Count 2.2 X10^3/uL (4.5-11.0)
[2022-11-15 12:52] LABS: Alanine Aminotransferase 50 IU/L (<35); Albumin 2.6 g/dL (3.5-5.0); Albumin Globulin Ratio 0.7 (1.0-2.8); Alkaline Phosphatase 370 U/L (38-126); Aspartate Aminotransferase 155 IU/L (14-36); BUN Creatinine Ratio 4.2 (6-22); Bilirubin Total 0.8 mg/dL (0.2-1.3); Blood Urea Nitrogen 2 mg/dL (7-17); Calcium 8.3 mg/dL (8.4-10.2); Carbon Dioxide 27 mmol/L (22-32); Chloride 103 mmol/L (98-107); Estimated Glomerular Filt Rate > 60 mL/min (>60); Globulin 3.5 g/dL (1.7-4.1); Glucose 92 mg/dL (70-100); HEMOLYSIS < 15 (0-50); Potassium 3.6 mmol/L (3.4-5.1); Sodium 140 mmol/L (137-145); Total Protein 6.1 g/dL (6.3-8.2)
== END ==
PROVIDERS: Registered Nurse Diabetes Educator; PCP Family Medicine; Referring Provider Family Medicine; Visit Provider Family Medicine
DX: D72.819 Decreased white blood cell count, unspecified (principal); E46 Unspecified protein-calorie malnutrition; E87.6 Hypokalemia; K70.30 Alcoholic cirrhosis of liver without ascites; K72.10 Chronic hepatic failure without coma
CPT/HCPCS: 36415; 80053; 85025

== ENCOUNTER → 2022-12-17 13:56 | Outpatient (CLI) | payer OTHER, MEDICAID, SELFPAY ==
[2022-12-17 14:18] LABS: Hematocrit 27.3 % (36-46); Hemoglobin 9.1 g/dL (12.0-16.0); Mean Corpuscular HGB Conc 33.3 % (30-36); Mean Corpuscular Hemoglobin 34.7 PG (26-34); Mean Corpuscular Volume 104.2 fL (80-100); Platelet Count 213 X10^3/uL (150-400); Red Blood Cell Count 2.62 X10^6/uL (4.0-5.2); Red Cell Distribution Width 14.4 % (11.6-14.8)
[2022-12-17 14:29] LABS: Alanine Aminotransferase 15 IU/L (<35); Albumin 2.1 g/dL (3.5-5.0); Albumin Globulin Ratio 0.7 (1.0-2.8); Alkaline Phosphatase 152 U/L (38-126); Aspartate Aminotransferase 31 IU/L (14-36); Blood Urea Nitrogen 9 mg/dL (7-17); Calcium 7.6 mg/dL (8.4-10.2); Carbon Dioxide 27 mmol/L (22-32); Chloride 106 mmol/L (98-107); Estimated Glomerular Filt Rate > 60 mL/min (>60); Glucose 79 mg/dL (70-100); HEMOLYSIS < 15 (0-50); Potassium 3.8 mmol/L (3.4-5.1); Sodium 135 mmol/L (137-145); Total Protein 5.1 g/dL (6.3-8.2)
[2022-12-17 14:31] LABS: Bilirubin Total < 0.1 mg/dL (0.2-1.3)
[2022-12-17 14:37] LABS: Add Manual Diff / Slide Review YES; White Blood Cell Count 1.8 X10^3/uL (4.5-11.0)
[2022-12-17 14:51] LABS: Neutrophils Absolute Manual 720 /uL (3000-5900); Total Cells Counted 50
[2022-12-17 14:52] LABS: Macrocytosis 1+
== END ==
PROVIDERS: PCP Family Medicine; Referring Provider Family Medicine; Visit Provider Family Medicine
DX: D72.819 Decreased white blood cell count, unspecified (principal); F50.00 Anorexia nervosa, unspecified
CPT/HCPCS: 36415; 80053; 85007; 85025

== ENCOUNTER 2023-02-07 09:44 | Emergency (ER) | payer OTHER, MEDICAID, SELFPAY ==
[2023-02-07] VITALS (7 sets, daily range): BP systolic 105–115; BP diastolic 57–67; PULSE 93–100; RESP 18; TEMP 36.3; O2SAT 99–100; BMI 19.8
--- NOTE | 2023-02-07 09:59 | DI.RAD.S_ITS ---
PROCEDURE: XR CHEST 1V INDICATIONS: suspected sepsis TECHNIQUE: One view of the chest was acquired. COMPARISON: [facility], CR, XR CHEST 1V, 10/03/2022, 13:41. FINDINGS: Surgical changes and devices: None. Lungs and pleura: Lungs are clear. No pleural effusions or pneumothorax. Mediastinum: Mediastinal contours appear normal. Heart size is normal. Bones and chest wall: No suspicious bony lesions. Overlying soft tissues appear unremarkable. IMPRESSION: No evidence acute pulmonary process. Dictated by: Aldo Gamble M.D. on 02/07/2023 at 10:34 Approved by: Aldo Gamble M.D. on 02/07/2023 at 10:35
[2023-02-07 10:26] LABS: INR 1.1 (0.9-1.3); Prothrombin Time 13.1 SECONDS (10.1-12.7)
[2023-02-07 10:28] LABS: Lactate (Lactic Acid) 0.7 mmol/L (0.7-2.1)
[2023-02-07 10:29] LABS: PTT Partial Thromboplastin Tim 30 SECONDS (26-36)
[2023-02-07 10:33] LABS: Alanine Aminotransferase 17 IU/L (<35); Alkaline Phosphatase 128 U/L (38-126); Aspartate Aminotransferase 24 IU/L (14-36); BUN Creatinine Ratio 29.3 (6-22); Bilirubin Total 0.5 mg/dL (0.2-1.3); Blood Urea Nitrogen 17 mg/dL (7-17); Calcium 8.7 mg/dL (8.4-10.2); Carbon Dioxide 24 mmol/L (22-32); Chloride 102 mmol/L (98-107); Estimated Glomerular Filt Rate > 60 mL/min (>60); Globulin 3.9 g/dL (1.7-4.1); Glucose 105 mg/dL (70-100); HEMOLYSIS < 15 (0-50); Lipase 36 U/L (23-300); Potassium 4.5 mmol/L (3.4-5.1); Sodium 134 mmol/L (137-145); Total Protein 7.9 g/dL (6.3-8.2)
[2023-02-07 10:38] LABS: Bacteria Urine None Seen; Culture Indicated Urine Cult Not Indicated; RBC Urine None Seen (0-5/HPF); Squamous Epithelial Cell Urine 1-5 /HPF (0-5/HPF); WBC Urine None Seen (0-5/HPF)
[2023-02-07 10:44] LABS: C-Reactive Protein Quant 19.3 mg/dL (<1.0)
[2023-02-07 10:45] LABS: Procalcitonin 0.51 ng/mL (<0.5)
[2023-02-07 10:48] LABS: Add Manual Diff / Slide Review NO; Basophils Absolute Auto 0 /uL (0-100); Basophils Percent Auto 0.4 % (0-2); Eosinophils Absolute Auto 0 /uL (0-450); Hematocrit 23.1 % (36-46); Hemoglobin 7.4 g/dL (12.0-16.0); Lymphocytes Absolute Auto 500 /uL (1100-4500); Lymphocytes Percent Auto 11.4 % (25-40); Mean Corpuscular HGB Conc 32.1 % (30-36); Mean Corpuscular Hemoglobin 27.4 PG (26-34); Mean Corpuscular Volume 85.4 fL (80-100); Monocytes Absolute Auto 1100 /uL (0-900); Monocytes Percent Auto 23.1 % (3-14); Neutrophils Absolute Auto 3100 /uL (1500-7000); Neutrophils Percent Auto 65.1 % (50-75); Platelet Count 239 X10^3/uL (150-400); Red Cell Distribution Width 17.6 % (11.6-14.8); White Blood Cell Count 4.8 X10^3/uL (4.5-11.0)
[2023-02-07] MEDS: SODIUM CHLORIDE 0.9% 1,000 ML 1000 ML IV (10:59)
--- NOTE | 2023-02-07 11:07 | DI.RAD.S_ITS ---
PROCEDURE: XR HIP W PEL IF DONE RT 2V INDICATIONS: right hip pain, fevers, hx hip replacement avascular necrosis TECHNIQUE: 3 views of the hip were acquired. COMPARISON: Merged With [facility], CR, XR HIP W PEL IF DONE RT 2V, 01/21/2022, 11:19. Merged With [facility], CR, XR HIP W PEL IF DONE BILAT 2V, 06/25/2021, 11:13. FINDINGS: Bones: No fractures or dislocations. No suspicious bony lesions. The visualized pelvic ring appears intact. Bilateral total hip arthroplasties. Increased lucency surrounding the right acetabular cup. Soft tissues: No suspicious soft tissue calcifications or masses. IMPRESSION: Increased lucency surrounding the right acetabular cup, suggestive of loosening. Dictated by: Xander Mendes M.D. on 02/07/2023 at 11:28 Approved by: Xander Mendes M.D. on 02/07/2023 at 11:29
[2023-02-07 11:20] LABS: Erythrocyte Sedimentation Rate > 140 MM/HR (0-20)
--- NOTE | 2023-02-07 12:06 | ED_ITS ---
HPI - Extremity Problem General Chief complaint: Extremity Problem,Nontraumatic Stated complaint: sent by DR to look at hip infection Time Seen by Provider: 02/07/23 11:07 Source: patient and family Mode of arrival: Wheelchair Limitations: no limitations History of Present Illness HPI Narrative: This is a 37-year-old female with history of alcohol abuse, malnutrition, and anorexia nervosa who has been in a outpatient care and gained 40 lb, hyponatremia, osteoporosis with prior avascular necrosis with bilateral hip replacement [facility] with Dr. Martinez. Patient presents with chronic right hip pain that has been progressively worsening for the past week. Patient has had fevers up to 103.5 F orally at home, she had Tylenol earlier this morning she is afebrile here. She states she is been having spasm and pain and discomfort into her right hip and thigh area. Any sort of movement or weigh t-bearing is significantly worse but she has not even at rest. She denies headaches, no neck pain, no chest pain or shortness of breath, no nausea or vomiting, no nasal congestion or cold or cough symptoms. She denies abdominal back or flank pain. No dysuria, urgency or frequency. No diarrhea or constipation. She is not had any new vaginal bleeding or discharge. She is not appreciated any swelling, skin changes or other changes to the hip. She has not had rashes elsewhere. She has not been having persistent fevers accept for the last few days. Patient was seen at Dr. Maldonado's her primary care today in regular follow-up check and was concern for possible infection and sent for evaluation. Patient did take a Percocet last night which was helpful she had this left over from her prior surgery. Patient states both hips were replaced at [facility] in the left 1 had to have a revision, her right hip was placed in 2020 they believe. They deny other surgeries. No known drug allergies. No tobacco, occasional alcohol, no illicit. Related Data Home Medications Medication Instructions Recorded Confirmed acamprosate 333 mg tablet,delayed See Rx Instructions .Route .COMPLEX 02/07/23 02/07/23 release acetaminophen 500 mg tablet 1,000 mg PO Q6H PRN Pain (Scale 02/07/23 02/07/23 (Tylenol Extra Strength) Score 1-3) arnica 20 % topical tincture 1 ea topical PRN PRN pain (scale 02/07/23 02/07/23 score 1-3) cholecalciferol (vitamin D3) 25 2,000 unit PO DAILY #0 tabs 02/07/23 02/07/23 mcg (1,000 unit) tablet (Vitamin D3) docusate sodium 100 mg capsule 100 mg PO BID 02/07/23 02/07/23 duloxetine 60 mg capsule,delayed 60 mg PO DAILY 02/07/23 02/07/23 release sprinkle estradiol 0.025 mg/24 hr weekly 1 patch transdermal QWEEK 02/07/23 02/07/23 transdermal patch (Climara) lactulose 10 gram/15 mL oral 10 g PO BID PRN constipation 02/07/23 02/07/23 solution mecobalamin (vitamin B12) 500 mcg 500 mcg PO DAILY 02/07/23 02/07/23 chewable tablet methocarbamol 750 mg tablet 750 mg PO QID 02/07/23 02/07/23 metoclopramide HCl 5 mg tablet 5 mg PO QAC 02/07/23 02/07/23 omeprazole 20 mg capsule,delayed 20 mg PO DAILY 02/07/23 02/07/23 release ondansetron HCl 4 mg tablet 4 mg PO BID PRN Nausea And Vomiting 02/07/23 02/07/23 polyethylene glycol 3350 17 17 g PO BID PRN constipation 02/07/23 02/07/23 gram/dose oral powder (Miralax) progesterone micronized 200 mg 200 mg PO BEDTIME 02/07/23 02/07/23 capsule spironolactone 100 mg tablet 200 mg PO DAILY 02/07/23 02/07/23 tramadol 50 mg tablet 25 mg PO Q6H PRN Pain (Scale Score 02/07/23 02/07/23 4-6) Previous Rx's Medication Instructions Recorded pantoprazole 40 mg tablet,delayed 40 mg PO BID #180 tabs 12/30/22 release thiamine HCl (vitamin B1) 100 mg 100 mg PO DAILY #90 tabs 12/31/22 tablet alendronate 70 mg tablet See Rx Instructions .Route 01/27/23 .COMPLEX #12 tabs oxycodone 5 mg tablet 5 mg PO Q6H PRN pain #14 tabs 02/07/23 Allergies Allergy/AdvReac Type Severity Reaction Status Date / Time gabapentin AdvReac Intermediate Mental Verified 02/07/23 09:05 status changes Review of Systems Review of Systems ROS Unobtainable: All systems reviewed & are unremarkable except as noted in HPI and below Patient History Medical History Alcoholism Alcoholism in remission Ankle pain, right Anorexia Anorexia nervosa Anxiety Caloric malnutrition Depression GERD (gastroesophageal reflux disease) Leukocytopenia Neuropathy Social History Smoking Status: Never smoker Smoking Status: Never smoker alcohol intake frequency: 0-2 drinks per day Substance Use Type: does not use Exam Narrative Exam Narrative: GEN: well nourished, well appearing female, alert and oriented x [default value], patient appears to be in [id number] distress. HEENT: Atraumatic, pupils are equal round reactive to light, extraocular movements are intact, nares are clear.. Throat is clear without any exudates, erythema, tonsillar enlargement or uvular deviation HEART: Regular rate and rhythm without murmur, clicks, rubs. No pulses are equal in upper and lower extremities LUNGS:Lungs clear to auscultation, no wheezes, rales, crackles, chest moves symmetrically, no tachypnea accessory muscle use. ABD:bowel sounds normal, soft, non-tender, no guarding, rebound, rigidity, no masses noted, no hepatosplenomegaly :No CVA tenderness MSCL: Non-tender, no muscle atrophy, muscles strength 5/5 upper and lower ex tremities, patient has range of motion but increased pain at her right hip with passive and active range of motion. Incision is clean dry and intact. Patient has some mild pain over the bone. There is no warmth erythema or skin changes appreciated over the right hip. Patient does not have any tenderness of the right knee ankle or foot. No discomfort of the left lower extremity. Patient has 2+ pulses bilateral lower extremities. She is mild edema pedal bilaterally that does not track up her legs. NEURO:CN 2-12 intact, sensation normal. Initial Vital Signs Initial Vital Signs: Vital Signs Pulse Rate 94 H 02/07/23 09:57 Pulse Oximetry 100 02/07/23 09:57 Course Orders Ordered: ED Orders 02/07/23 09:59 XR chest 1V Stat RT Consult Eval and Treat NOW 02/07/23 10:05 CRP [C-Reactive Protein Quant] Stat Complete Blood Count AUTO DIFF Stat Comprehensive Metabolic Panel Stat Erythrocyte Sedimentation Rate Stat Lactate (Lactic Acid) Stat Lipase Stat PTT Partial Thromboplastin Alexy Stat Procalcitonin Stat Prothrombin Time INR Stat 02/07/23 10:24 Urine Microscopic Stat 02/07/23 10:56 Blood Culture Stat 02/07/23 11:07 XR hip w pel if done RT 2V Stat 02/07/23 14:37 COVID19 -Nasal RAPID Stat Discontinued Medications Sodium Chloride (Normal Saline 0.9%) 1,000 mls @ 1,000 mls/hr IV BOLUS ONE Stop: 02/07/23 10:58 Last Infusion: 02/07/23 12:02 Dose: 0 mls/hr Documented By: Admin: 02/07/23 10:59 Dose: 1,000 mls/hr Documented By: NR Vancomycin HCl (Vancomycin) 1,000 mg in 200 mls @ 200 mls/hr IV NOW ONE Stop: 02/07/23 13:51 Last Infusion: 02/07/23 16:37 Dose: 0 mls/hr Documented By: Admin: 02/07/23 15:07 Dose: 200 mls/hr Documented By: NR Cefepime HCl 2 gm/ Sodium (Chloride) 100 mls @ 200 mls/hr IV NOW ONE Stop: 02/07/23 12:53 Last Infusion: 02/07/23 15:33 Dose: 0 mls/hr Documented By: Admin: 02/07/23 13:59 Dose: 200 mls/hr Documented By: NR Lactated Ringer's (Lactated Ringers) 1,774.44 mls @ 591.48 mls/hr 30 ml/kg infuse over 3 hr (1774.44 ml) IV NOW ONE Stop: 02/07/23 15:51 Last Admin: 02/07/23 13:56 Dose: 591.48 mls/hr Documented By: MARK Ketorolac Tromethamine (Ketorolac 30 Mg/Ml Vial) 15 mg IV NOW ONE Stop: 02/07/23 12:10 Last Admin: 02/07/23 12:20 Dose: 15 mg Documented By: NR Morphine Sulfate (Morphine 4 Mg/Ml Inj) 4 mg IV NOW ONE Stop: 02/07/23 12:53 Last Admin: 02/07/23 13:56 Dose: 4 mg Documented By: NR Morphine Sulfate (Morphine 4 Mg/Ml Inj) 4 mg IV NOW ONE Stop: 02/07/23 16:38 Last Admin: 02/07/23 16:49 Dose: 4 mg Documented By: NR Ondansetron HCl (Ondansetron 4 Mg Odt) 4 mg SL NOW PRN PRN Reason: Nausea And Vomiting Ondansetron HCl (Ondansetron 4 Mg/2 Ml Inj) 4 mg IV NOW PRN PRN Reason: Nausea And Vomiting Vital Signs Vital signs: Vital Signs - 8 hr 02/07/23 10:53 02/07/23 10:54 02/07/23 10:54 Pulse Rate 93 H 95 H Blood Pressure 105/67 Pulse Oximetry 99 100 02/07/23 11:00 Pulse Rate 98 H Blood Pressure Pulse Oximetry 99 MDM - Extremity (Nontraumatic) Lab Data 02/07/23 10:05 02/07/23 10:05 Labs: Lab Results 02/07/23 02/07/23 02/07/23 Range/Units 10:05 10:05 10:05 WBC 4.8 (4.5-11.0) X10^3/uL RBC 2.70 L (4.0-5.2) X10^6/uL Hgb 7.4 L (12.0-16.0) g/dL Hct 23.1 L (36-46) % MCV 85.4 (80-100) fL MCH 27.4 (26-34) PG MCHC 32.1 (30-36) % RDW 17.6 H (11.6-14.8) % Plt Count 239 (150-400) X10^3/uL Neut % (Auto) 65.1 (50-75) % Lymph % (Auto) 11.4 L (25-40) % [place] % (Auto) 23.1 H (3-14) % Eos % (Auto) 0.0 L (2-4) % Baso % (Auto) 0.4 (0-2) % Neut # (Auto) 3100 (4651-8668) /uL Lymph # (Auto) 500 L (7149-6170) /uL [place] # (Auto) 1100 H (0-900) /uL Eos # (Auto) 0 (0-450) /uL Baso # (Auto) 0 (0-100) /uL ESR > 140 H (0-20) MM/HR PT 13.1 H (10.1-12.7) SECONDS INR 1.1 (0.9-1.3) APTT 30 (26-36) SECONDS Sodium 134 L (137-145) mmol/L Potassium 4.5 (3.4-5.1) mmol/L Chloride 102 (98-107) mmol/L Carbon Dioxide 24 (22-32) mmol/L BUN 17 (7-17) mg/dL Creatinine 0.58 (0.52-1.04) mg/dL Estimated GFR > 60 (>60) mL/min BUN/Creatinine Ratio 29.3 H (6-22) Glucose 105 H (70-100) mg/dL Lactate (0.7-2.1) mmol/L Calcium 8.7 (8.4-10.2) mg/dL Total Bilirubin 0.5 (0.2-1.3) mg/dL AST 24 (14-36) IU/L ALT 17 (<35) IU/L Alkaline Phosphatase 128 H (38-126) U/L C-Reactive Protein 19.3 H (<1.0) mg/dL Total Protein 7.9 (6.3-8.2) g/dL Albumin 4.0 (3.5-5.0) g/dL Globulin 3.9 (1.7-4.1) g/dL Albumin/Globulin Ratio 1.0 (1.0-2.8) Lipase 36 (23-300) U/L Procalcitonin 0.51 H (<0.5) ng/mL Urine RBC (0-5/HPF) Urine WBC (0-5/HPF) Ur Squamous Epith Cells (0-5/HPF) Urine Bacteria (None) Ur Culture Indicated? SARS-CoV-2 (PCR) (Negative) 02/07/23 02/07/23 02/07/23 Range/Units 10:05 10:24 14:37 WBC (4.5-11.0) X10^3/uL RBC (4.0-5.2) X10^6/uL Hgb (12.0-16.0) g/dL Hct (36-46) % MCV (80-100) fL MCH (26-34) PG MCHC (30-36) % RDW (11.6-14.8) % Plt Count (150-400) X10^3/uL Neut % (Auto) (50-75) % Lymph % (Auto) (25-40) % [place] % (Auto) (3-14) % Eos % (Auto) (2-4) % Baso % (Auto) (0-2) % Neut # (Auto) (1407-4645) /uL Lymph # (Auto) (8391-6075) /uL [place] # (Auto) (0-900) /uL Eos # (Auto) (0-450) /uL Baso # (Auto) (0-100) /uL ESR (0-20) MM/HR PT (10.1-12.7) SECONDS INR (0.9-1.3) APTT (26-36) SECONDS Sodium (137-145) mmol/L Potassium (3.4-5.1) mmol/L Chloride (98-107) mmol/L Carbon Dioxide (22-32) mmol/L BUN (7-17) mg/dL Creatinine (0.52-1.04) mg/dL Estimated GFR (>60) mL/min BUN/Creatinine Ratio (6-22) Glucose (70-100) mg/dL Lactate 0.7 (0.7-2.1) mmol/L Calcium (8.4-10.2) mg/dL Total Bilirubin (0.2-1.3) mg/dL AST (14-36) IU/L ALT (<35) IU/L Alkaline Phosphatase (38-126) U/L C-Reactive Protein (<1.0) mg/dL Total Protein (6.3-8.2) g/dL Albumin (3.5-5.0) g/dL Globulin (1.7-4.1) g/dL Albumin/Globulin Ratio (1.0-2.8) Lipase (23-300) U/L Procalcitonin (<0.5) ng/mL Urine RBC None seen (0-5/HPF) Urine WBC None seen (0-5/HPF) Ur Squamous Epith Cells 1-5 /hpf (0-5/HPF) Urine Bacteria None seen (None) Ur Culture Indicated? Cult not indicated SARS-CoV-2 (PCR) Negative (Negative) Point of Care Testing Test Results Negative Urine Dip Bedside Urine Glucose Negative Bedside Urine Bilirubin - Negative Bedside Urine Ketone - Negative Urine Specific [place] 1.005 Bedside Urine Occult Blood - Negative Bedside Urine pH 6.0 Bedside Urine Protein + 30 Bedside Urine Urobilinogen - Negative Bedside Urine Nitrite - Negative Bedside Urine Leukocytes - Negative Esterase Imaging Data Extremity x-ray #1: Radiologist's Impression: [place] [id number] [place] [id number] ReportSigned Patient: Naina Wing LMR#: [id number]: 1985Acct:[id number]/Sex: 37 / FDate of Service: 02/07/23Loc: EDAccession Number: [id number]? ? Procedure: XR hip w pel if done RT 2V Ordering Provider: Aminata Del Valle D.O. PROCEDURE:? XR HIP W PEL IF DONE RT 2V ? INDICATIONS:? right hip pain, fevers, hx hip replacement avascular necrosis ? TECHNIQUE:? 3 views of the hip were acquired.? ? COMPARISON:? [facility], CR, XR HIP W PEL IF DONE RT 2V, 01/21/2022, 11:19.? [facility], CR, XR HIP W PEL IF DONE BILAT 2V, 06/25/2021, 11:13. ? FINDINGS:? ? Bones:? No fractures or dislocations.? No suspicious bony lesions.? The visualized pelvic ring appears intact.? Bilateral total hip arthroplasties.? Increased lucency surrounding the right acetabular cup. ? Soft tissues:? No suspicious soft tissue calcifications or masses.? ? IMPRESSION:? Increased lucency surrounding the right acetabular cup, suggestive of loosening.? ? ? Dictated by: Xander Mendes M.D. on 02/07/2023 at 11:28? ?? Approved by: Xander Mendes M.D. on 02/07/2023 at 11:29?? Chest x-ray: Radiologist's Impression: Close Hip X-Ray (Signed) Xander Mendes - 02/07/23 Chest X-Ray (Signed) Aldo Gamble - 02/07/23 DI Result CC 01/13/[address] (Signed) Monica Jerome - 10/03/22 Foot X-Ray (Signed) Monica Jerome - 10/03/22 Chest X-Ray (Signed) Justus,Monica - 10/03/22 Hip X-Ray (Signed) Lissy Fuentes - 01/21/22 Hip X-Ray (Signed) JustusOsmanieesuresh - 06/25/21 Hip X-Ray (Signed) Javier Man - 04/02/21 Hip X-Ray (Signed) Francisco Scott - 07/19/20 Hip X-Ray (Signed) Chano Sierra - 05/15/20 Vascular Ultrasound (Signed) Roberto Carlos Eckert - 04/03/20 Foot X-Ray (Signed) Roberto Carlos Eckert - 04/03/20 Neck Magnetic Resonance Angiography (Signed) Sj Reyes - 05/17/19 Chest CTA (Signed) Willis Pichardo - 03/02/19 Chest X-Ray (Signed) Monica Jerome - 03/02/19 Shoulder X-Ray (Signed) Lissy Fuentes - 08/11/18 Shoulder X-Ray (Signed) Sj Reyes - 08/11/18 Telemetry Strips 07/23/18 Telemetry Strips 07/23/18 Abdomen Ultrasound (Signed) Александр Truong - 07/20/18 Bone Densitometry (Signed) April Martel - 06/15/18 Hip MRI (Signed) Noe Thomas - 05/26/18 Radiology Report (Cancelled) April Martel - 05/12/18 Foot X-Ray (Signed) April Martel - 05/12/18 Hip X-Ray (Signed) Lissy Fuentes - 04/11/18 Knee MRI (Signed) Willis Pichardo - 04/08/18 Knee X-Ray (Signed) Chano Sierra - 03/24/18 Ankle X-Ray (Signed) Chano Sierra - 03/24/18 DI Result CC 06/18/[address] [address] XRay Report Signed Patient: Naina Wing MR#: [id number] : 1985 Acct:[id number] Age/Sex: 37 / F Date of Service: 02/07/23 Loc: ED Accession Number: [id number] ?? Procedure: XR chest 1V Ordering Provider: Aminata Del Valle D.O. PROCEDURE:? XR CHEST 1V ? INDICATIONS:? suspected sepsis ? TECHNIQUE:? One view of the chest was acquired.? ? COMPARISON:? [facility], CR, XR CHEST 1V, 10/03/2022, 13:41. ? FINDINGS:? ? Surgical changes and devices:? None.? ? Lungs and pleura:? Lungs are clear.? No pleural effusions or pneumothorax.? ? Mediastinum:? Mediastinal contours appear normal.? Heart size is normal.? ? Bones and chest wall:? No suspicious bony lesions.? Overlying soft tissues appear unremarkable.? ? IMPRESSION:? No evidence acute pulmonary process. ? ? ? Dictated by: Aldo Gamble M.D. on 02/07/2023 at 10:34 ? ? Approved by: Aldo Gamble M.D. on 02/07/2023 at 10:35?? MDM Narrative Medical decision making narrative: This is a 37-year-old female with medical history of alcohol use, avascular necrosis with bilateral hip replacement any anorexia nervosa who has had significant improvement in her weight. Patient's BMI is still 19. Patient has had fevers for the past several days with increasing pain at her right hip. There is concern for possible septic joint the skin does not show clear signs of infection or cellulitis there is some possible loosening lucency at the aceta bulum on her hip x-ray, chest x-ray is negative. Labs show white count of 4.8 with elevation of monocytes, patient has positive CRP and ESR as well as procalcitonin. Patient's hemoglobin 7 for she was 9 1 in November. Sodium is 134 with a glucose of 105 normal renal function electrolytes otherwise, alk-phos is 128. Lactate is negative. Urine is negative. No other clear source is found at this time. Patient was covered with vanco and cefepime for possible immune suppression with her history of alcohol use and anorexia. Fluids, pain management. Consultation with Orthopedic surgery locally with Dr. Gaines, patient case was discussed he would recommend contacting [facility] as they do implant removal and replacement, no MRI at this point from his perspective as she has too much hardware. Spoke with Dr. Luevano orthopedic surgery [facility]. He also consulted with Dr. Martinez patient's regular orthopedic surgeon. Reviewed all patient's labs, physical exam findings. She is quite painful has been able to weightbear in the department on walking to the bathroom but is very uncomfortable. They suspect she may have some chronic baseline infection recom mend that they see her this upcoming week in the clinic do not feel that she requires transfer today. Do not wish for any aspiration asked that we do not continue antibiotics. Do ask the patient to return if worsening symptoms. Reviewed all findings with patient and family. They note she is had actually 1 fever at home that was 103 F, patient had ambulated to the bathroom here in the department. She feels comfortable with this plan. We will do a short course of oral narcotic pain medication asked to return if persistent fevers, increasing pain if she is having any other new or worsening changes or anything else over time. We discussed that if she is not heard from the office by Friday to call them to make sure appointment has been set in place. Discharge Plan Departure Patient Disposition: Home Clinical Impression: Hip pain Activity Restrictions/Additional Instructions: I spoke with your orthopedic team at [facility]. They would like to see you this upcoming week. If you have not heard from their office by Friday please call to set up an appointment time. There is concern for possible infection in the joint and/or loosening of the hardware. Your images have been pushed down to [facility]. You may continue your home medications as prescribed. Please continue with Tylenol as needed a 1000 mg every 6 hours. You can take oxycodone 1-2 tablets every 6 hours as needed. This medication can make you sleepy do not drive, perform hazardous activities or make any major decisions while taking it. This medication will make you constipated please take a stool softener once to twice daily until stools are soft and regular. Prescription sent to [facility] in [place]. Please return for persistent fevers, increasing pain, difficulty with weight- bearing, new warmth, redness or swelling of your extremity, lightheadedness or passing out, chest pain or shortness of breath, persistent vomiting, new numbness, tingling or weakness or other new or concerning changes. Prescriptions: New oxycodone 5 mg tablet 5 mg PO Q6H PRN (Reason: pain) Qty: 14 0RF No Action pantoprazole 40 mg tablet,delayed release (DR/EC) 40 mg PO BID Qty: 180 3RF thiamine HCl (vitamin B1) 100 mg tablet 100 mg PO DAILY Qty: 90 3RF alendronate 70 mg tablet See Rx Instructions .ROUTE .COMPLEX Qty: 12 0RF Dose Instruction: TAKE 1 TABLET BY MOUTH ON FRIDAY EVERY WEEK Rx Instructions: TAKE 1 TABLET BY MOUTH ON FRIDAY EVERY WEEK cholecalciferol (vitamin D3) [Vitamin D3] 25 mcg (1,000 unit) tablet 2,000 unit PO DAILY Qty: 0 acamprosate 333 mg tablet,delayed release (DR/EC) See Rx Instructions .ROUTE .COMPLEX Dose Instruction: TAKE 1 TABLET BY MOUTH TWICE A DAY. TAKE WITH MID-DAY MEAL AND EVENING MEAL Rx Instructions: TAKE 2 TABLET BY MOUTH TWICE A DAY. TAKE WITH MID-DAY MEAL AND EVENING MEAL spironolactone 100 mg tablet 200 mg PO DAILY metoclopramide HCl 5 mg tablet 5 mg PO QAC Rx Instructions: administer 30 minutes before meals ondansetron HCl 4 mg tablet 4 mg PO BID PRN (Reason: Nausea And Vomiting) duloxetine 60 mg capsule, delayed rel sprinkle 60 mg PO DAILY progesterone micronized 200 mg capsule 200 mg PO BEDTIME Rx Instructions: take one tab daily for the first 12 days of the month mecobalamin (vitamin B12) 500 mcg tablet,chewable 500 mcg PO DAILY estradiol [Climara] 0.025 mg/24 hr patch weekly 1 patch transdermal QWEEK polyethylene glycol 3350 [Miralax] 17 gram/dose powder 17 g PO BID PRN (Reason: constipation) omeprazole 20 mg capsule,delayed release(DR/EC) 20 mg PO DAILY lactulose 10 gram/15 mL solution 10 g PO BID PRN (Reason: constipation) Rx Instructions: 10 to 20 ml arnica 20 % tincture 1 ea topical PRN PRN (Reason: pain (scale score 1-3)) docusate sodium 100 mg capsule 100 mg PO BID acetaminophen [Tylenol Extra Strength] 500 mg tablet 1,000 mg PO Q6H PRN (Reason: Pain (Scale Score 1-3)) tramadol 50 mg tablet 25 mg PO Q6H PRN (Reason: Pain (Scale Score 4-6)) methocarbamol 750 mg tablet 750 mg PO QID Referrals: Andrew Herrera MD [Primary Care Provider] - Xander Martinez MD [Non-Staff] - Stand Alone Forms: Patient Portal/API
[2023-02-07] MEDS: KETOROLAC 30 MG/ML VIAL 15 MG IV (12:20)
[2023-02-07] MEDS: MORPHINE 4 MG/ML INJ IV ×2 (13:56→16:49)
[2023-02-07] MEDS: LACTATED RINGERS 591.48 ML IV (13:56)
[2023-02-07] MEDS: CEFEPIME 2 GM in SODIUM CHLORIDE 0.9% 100 ML IV (13:59)
[2023-02-07 15:03] LABS: COVID19 -Nasal RAPID Negative (Negative)
[2023-02-07] MEDS: VANCOMYCIN 1,000 MG/200 ML PIGGYBACK 200 MG IV (15:07)
== END 2023-02-07 18:11 | disposition home or self-care (01) ==
PROVIDERS: Emergency Provider Emergency Medicine; PCP Family Medicine
DX: M25.551 Pain in right hip (principal); R50.9 Fever, unspecified; R25.2 Cramp and spasm; Z96.643 Presence of artificial hip joint, bilateral; Z20.822 Contact with and (suspected) exposure to COVID-19
CPT/HCPCS: 36415; 71045; 73502; 80053; 81003; 81015; 81025; 83605; 83690; 84145; 85025; 85610; 85651; 85730; 86140; 87040; 87635; 96361; 96365; 96366; 96367; 96375; 96376; 99284; C9803; J0692; J1885; J2270

== ENCOUNTER → 2023-02-13 10:52 | Outpatient (CLI) | payer OTHER, MEDICAID, SELFPAY ==
--- NOTE | 2023-02-13 10:52 | DI.CT.S_ITS ---
PROCEDURE: CT HIP RIGHT WITH CON INDICATIONS: r/o infection around the displaced prosthetic TECHNIQUE: Noncontrast 3 mm axial sections acquired through the bony pelvis. Additional 3 mm axial sections acquired through the symptomatic hip joint, with coronal and sagittal reformats. COMPARISON: [facility], CR, XR HIP W PEL IF DONE RT 2V, 02/07/2023, 11:06. FINDINGS: Image quality: Excellent. Bones: Postsurgical changes are seen from bilateral total hip arthroplasties. Lucency is seen surrounding the anterior portion of the right acetabular component as seen on recent radiographs. There is mild erosion of the adjacent anterior cortex of the iliac bone. The left acetabular component is intact. The femoral head components are well positioned within the abscess tabular cups. The femoral components are demonstrate no signs of loosening or perihardware fracture. Heterotopic ossifications are seen adjacent to the greater trochanters bilaterally. Soft tissues: Ill-defined soft tissue edema and fluid is seen surrounding the right hip. The musculature surrounding the hips is normal in bulk. The included soft tissues of the pelvis demonstrate no acute abnormality. Moderate stool is seen in the included colon. IMPRESSION: 1. Right hip arthroplasty is again seen with osseous lucency adjacent to the acetabular component. Confluent soft tissue edema and heterogeneous fluid are seen surrounding the right hip. Findings are nonspecific and could be related to aseptic loosening, but infection is not excluded and further evaluation with joint aspiration is recommended. 2. Left hip arthroplasty appears intact. Approved by: Francisco Scott M.D. on 02/13/2023 at 13:06
== END ==
PROVIDERS: PCP Family Medicine; Referring Provider Family Medicine; Visit Provider Family Medicine
DX: Z96.641 Presence of right artificial hip joint (principal)
CPT/HCPCS: 73701

== ENCOUNTER → 2023-02-27 10:42 | Outpatient (CLI) | payer OTHER, MEDICAID, SELFPAY ==
[2023-02-27 12:02] LABS: Add Manual Diff / Slide Review NO; Basophils Absolute Auto 0 /uL (0-100); Basophils Percent Auto 0.8 % (0-2); Eosinophils Absolute Auto 0 /uL (0-450); Eosinophils Percent Auto 0.6 % (2-4); Hematocrit 24.3 % (36-46); Hemoglobin 7.7 g/dL (12.0-16.0); Lymphocytes Absolute Auto 700 /uL (1100-4500); Lymphocytes Percent Auto 31.9 % (25-40); Mean Corpuscular HGB Conc 31.6 % (30-36); Mean Corpuscular Hemoglobin 24.8 PG (26-34); Mean Corpuscular Volume 78.4 fL (80-100); Monocytes Absolute Auto 400 /uL (0-900); Monocytes Percent Auto 16.5 % (3-14); Neutrophils Absolute Auto 1100 /uL (1500-7000); Neutrophils Percent Auto 50.2 % (50-75); Platelet Count 279 X10^3/uL (150-400); Red Cell Distribution Width 18.4 % (11.6-14.8); White Blood Cell Count 2.2 X10^3/uL (4.5-11.0)
[2023-02-27 12:12] LABS: INR 1.1 (0.9-1.3); Prothrombin Time 12.9 SECONDS (10.1-12.7)
[2023-02-27 12:15] LABS: PTT Partial Thromboplastin Tim 30 SECONDS (26-36)
[2023-02-27 12:18] LABS: Alanine Aminotransferase 14 IU/L (<35); Albumin 3.7 g/dL (3.5-5.0); Albumin Globulin Ratio 1.2 (1.0-2.8); Alkaline Phosphatase 140 U/L (38-126); Aspartate Aminotransferase 25 IU/L (14-36); BUN Creatinine Ratio 25.9 (6-22); Bilirubin Total 0.2 mg/dL (0.2-1.3); Blood Urea Nitrogen 14 mg/dL (7-17); Calcium 9.3 mg/dL (8.4-10.2); Carbon Dioxide 29 mmol/L (22-32); Chloride 102 mmol/L (98-107); Estimated Glomerular Filt Rate > 60 mL/min (>60); Globulin 3.2 g/dL (1.7-4.1); Glucose 108 mg/dL (70-100); HEMOLYSIS < 15 (0-50); Potassium 4.6 mmol/L (3.4-5.1); Sodium 137 mmol/L (137-145); Total Protein 6.9 g/dL (6.3-8.2)
== END ==
PROVIDERS: PCP Family Medicine; Referring Provider Family Medicine; Visit Provider Family Medicine
DX: M25.559 Pain in unspecified hip (principal); T84.038A Mechanical loosening of other internal prosthetic joint, initial encounter; T84.59XA Infection and inflammatory reaction due to other internal joint prosthesis, initial encounter; Z96.649 Presence of unspecified artificial hip joint
CPT/HCPCS: 36415; 80053; 85025; 85610; 85730

== ENCOUNTER → 2023-03-24 15:15 | Oncology outpatient (ONC) | payer OTHER, MEDICAID, SELFPAY ==
[2023-03-17] MEDS: ferumoxytoL 510 MG in SODIUM CHLORIDE 0.9% 100 ML 351 MG IV (16:01)
[2023-03-17 16:49] VITALS: BP 114/67; PULSE 102; RESP 15; TEMP 36.9; O2SAT 98
[2023-03-24 15:39] VITALS: BP 118/73; PULSE 100; RESP 16; TEMP 36.9; O2SAT 99
[2023-03-24] MEDS: ferumoxytoL 510 MG in SODIUM CHLORIDE 0.9% 100 ML 351 MG IV (15:48)
== END ==
PROVIDERS: PCP Family Medicine; Referring Provider Family Medicine; Visit Provider Family Medicine
DX: D50.9 Iron deficiency anemia, unspecified (principal)
CPT/HCPCS: 36415; 96365; Q0138

== ENCOUNTER → 2023-04-04 10:16 | Outpatient (CLI) | payer OTHER, MEDICAID, SELFPAY ==
[2023-04-04 11:26] LABS: Add Manual Diff / Slide Review NO; Basophils Absolute Auto 0 /uL (0-100); Basophils Percent Auto 0.8 % (0-2); Eosinophils Absolute Auto 0 /uL (0-450); Eosinophils Percent Auto 1.3 % (2-4); Hematocrit 28.2 % (36-46); Hemoglobin 8.8 g/dL (12.0-16.0); Lymphocytes Absolute Auto 700 /uL (1100-4500); Lymphocytes Percent Auto 21.4 % (25-40); Mean Corpuscular HGB Conc 31.2 % (30-36); Mean Corpuscular Hemoglobin 28.1 PG (26-34); Mean Corpuscular Volume 89.9 fL (80-100); Monocytes Absolute Auto 600 /uL (0-900); Monocytes Percent Auto 16.7 % (3-14); Neutrophils Absolute Auto 2000 /uL (1500-7000); Neutrophils Percent Auto 59.8 % (50-75); Platelet Count 167 X10^3/uL (150-400); Red Blood Cell Count 3.14 X10^6/uL (4.0-5.2); Red Cell Distribution Width 33.8 % (11.6-14.8); White Blood Cell Count 3.4 X10^3/uL (4.5-11.0)
[2023-04-04 11:40] LABS: Anisocytosis 3+
[2023-04-04 11:46] LABS: HEMOLYSIS < 15 (0-50); Iron 29 ug/dL (37-170)
[2023-04-04 11:52] LABS: Alanine Aminotransferase 159 IU/L (<35); Albumin 3.6 g/dL (3.5-5.0); Albumin Globulin Ratio 1.3 (1.0-2.8); Alkaline Phosphatase 155 U/L (38-126); Aspartate Aminotransferase 317 IU/L (14-36); BUN Creatinine Ratio 20.3 (6-22); Bilirubin Total 0.4 mg/dL (0.2-1.3); Blood Urea Nitrogen 12 mg/dL (7-17); Calcium 8.5 mg/dL (8.4-10.2); Carbon Dioxide 24 mmol/L (22-32); Chloride 103 mmol/L (98-107); Estimated Glomerular Filt Rate > 60 mL/min (>60); Globulin 2.8 g/dL (1.7-4.1); Glucose 100 mg/dL (70-100); HEMOLYSIS < 15 (0-50); Potassium 4.7 mmol/L (3.4-5.1); Sodium 133 mmol/L (137-145); Total Protein 6.4 g/dL (6.3-8.2)
[2023-04-04 11:56] LABS: Percent Iron Saturation 9 % (15-50); Total Iron Binding Capacity 313 ug/dL (265-497); Transferrin 207 mg/dL (206-381)
[2023-04-04 12:21] LABS: Ferritin 190 ng/mL (6-137)
== END ==
PROVIDERS: Family Provider Family Medicine; PCP Family Medicine; Referring Provider Family Medicine; Visit Provider Family Medicine
DX: E87.6 Hypokalemia (principal); K74.60 Unspecified cirrhosis of liver; R18.8 Other ascites; D50.9 Iron deficiency anemia, unspecified
CPT/HCPCS: 36415; 80053; 82728; 83540; 83550; 85025

== ENCOUNTER → 2023-04-11 08:40 | Outpatient (CLI) | payer OTHER, MEDICAID, SELFPAY ==
--- NOTE | 2023-04-11 08:42 | DI.US.S_ITS ---
PROCEDURE: US ABDOMEN LIMITED INDICATIONS: ASCITES TECHNIQUE: Real-time focused scanning was performed of the abdomen, with image documentation. COMPARISON: [facility], , US ABDOMEN COMPLETE, 07/20/2018, 13:26. FINDINGS: No evidence of ascites in any of the four quadrants. IMPRESSION: No sonographic evidence of intraperitoneal ascites. Dictated by: Roxanne Ugalde M.D. on 04/11/2023 at 12:21 Approved by: Roxanne Ugalde M.D. on 04/11/2023 at 12:21
== END ==
PROVIDERS: Family Provider Family Medicine; PCP Family Medicine; Referring Provider Family Medicine; Visit Provider Family Medicine
DX: R18.8 Other ascites (principal); D50.9 Iron deficiency anemia, unspecified; E87.6 Hypokalemia
CPT/HCPCS: 76705

== ENCOUNTER → 2023-04-14 13:56 | Outpatient (CLI) | payer OTHER, MEDICAID, SELFPAY ==
[2023-04-14 16:15] LABS: NT-proBNP (BNP-Adult 18+) 9250 pg/mL (<125)
== END ==
PROVIDERS: Family Provider Family Medicine; PCP Family Medicine; Referring Provider Family Medicine; Visit Provider Family Medicine
DX: R06.02 Shortness of breath (principal); R60.9 Edema, unspecified
CPT/HCPCS: 36415; 83880

== ENCOUNTER → 2023-04-29 08:07 | Outpatient (CLI) | payer OTHER, MEDICAID, SELFPAY ==
--- NOTE | 2023-04-29 | DI.ECHO.S_ITS ---
[place] [facility]---------+ [facility] +---------+ : : [address] : : : : [id number] : : : : Phone: [phone]+ Echocardiogram Report + + :Name: CAT LEONARDO Study Date: 04/29/2023 Height: 68 in : :[facility] ReadingLocation: Weight: 150 lb : : Gender: Female BSA: 1.8 m2 : :: 1985 Age: 37 yrs BP: 116/87 mmHg: :Reason For Study: EDEMA, ABDOMINAL SWELLING : :Ordering Physician: JOSELITO, : :AYAKA Performed By: Mellisa Lee : :Referring: AYAKA YEE : + + Interpretation Summary Patient states she has had abdominal swelling, shortness of breath with walking and having to sleep elevated for approximately one month after undergoing a hip surgery in March. The ejection fraction is estimated to be 20-25%. There is moderate to severe global hypokinesis of the left ventricle. Inferolaterral wall moves the best. The right ventricle is mildly dilated. The interatrial septum bows toward left atrium consistent with elevated right atrial pressure. There is moderate to severe mitral regurgitation. There is severe tricuspid regurgitation. Right ventricular systolic pressure is estimated to be 35 mmHg plus the clinically estimated CVP which cannot be estimated on this exam. Procedure: A two-dimensional transthoracic echocardiogram with color flow and Doppler was performed. Most of the acoustic windows were suboptimal, but the best imaging was obtained from the apical window. There is no prior echocardiogram noted for this patient. The patient was in sinus tachycardia with heart rates between 93-103 bpm during the exam. Left Ventricle: The left ventricle is normal in size and wall thickness. The estimated left ventricular end diastolic volume is 121 ml. The ejection fraction is estimated to be 20-25%. There is moderate to severe global hypokinesis of the left ventricle. Inferolaterral wall moves the best. Right Ventricle: The right ventricle is mildly dilated. Right ventricular systolic function is mildly reduced. Atria: The left atrium is severely dilated. The right atrium is severely dilated. The interatrial septum bows toward left atrium consistent with elevated right atrial pressure. There is no Doppler evidence for an interatrial shunt. Mitral Valve: The mitral valve leaflets appear mildly thickened, but open well. There is moderate to severe mitral regurgitation. Aortic Valve: The aortic valve is not well visualized. There is no aortic valve stenosis. No aortic regurgitation is present. Tricuspid Valve: The tricuspid annulus is dilated. There is malcoaptation of the tricuspid valve leaflets. The tricuspid valve leaflets are thin and pliable. There is severe tricuspid regurgitation. Right ventricular systolic pressure is estimated to be 35 mmHg plus the clinically estimated CVP which cannot be estimated on this exam. Right ventricular systolic pressure is likely underestimated due to regurgitation severity. Pulmonic Valve: The pulmonic valve is not well visualized. Great Vessels: The aortic root is not well visualized. The ascending aorta could not be visualized. The IVC is dilated (diameter is greater than 2.1 cm) and it collapses less than 50% with a sniff. This suggests a high right atrial pressure of 15 mm Hg. Pericardium/ Pleura There is a trivial pericardial effusion noted. There is no pleural effusion. MMode/2D Measurements & Calculations LVIDd: 5.4 cm LVOT diam: 2.1 cm LVIDs: 4.8 cm Ao Arch Diam (Prox Trans): 2.7 cm FS: 10.5 % IVSd: 0.75 cm LVPWd: 0.68 cm LV cloud. diameter/BSA (cm/m^2): 3.0 LV sys. diameter/BSA (cm/m^2): 2.7 LA A2 area: 28.3 cm2 RA long axis: 6.6 cm LA A4 area: 24.6 cm2 RA area: 30.9 cm2 LA length (vol): 6.3 cm RA vol: 121.9 ml LA vol: 93.4 ml RA : 67.4 ml/m2 LA vol index: 51.6 ml/m2 IVC diam: 2.7 cm RVD1 (basal): 4.4 cm RVD2 (mid): 2.9 cm TAPSE: 1.6 cm Doppler Measurements & Calculations Ao V2 max: 97.0 cm/sec LVOT Max Norberto: 63.1 cm/sec Ao V2 mean: 73.0 cm/sec LV V1 max P.6 mmHg Ao max P.8 mmHg LV V1 VTI: 9.8 cm Ao mean P.3 mmHg BELEN(I,D): 2.3 cm2 Ao V2 VTI: 15.4 cm BELEN(V,D): 2.3 cm2 sev ratio: 0.64 BELEN indexed to BSA (cm^2/m^2): 1.3 MV E max norberto: 90.8 cm/sec TR max norberto: 224.8 cm/sec MV A max norberto: 53.4 cm/sec TR max P.2 mmHg MV E/A: 1.7 PA pr(Accel): 25.9 mmHg Med Peak E' Norberto: 7.2 cm/sec E/E' med: 12.6 Lat Peak E' Norberto: 15.6 cm/sec E/E' lat: 5.8 E/e' average: 9.2 MV dec time: 0.14 sec MR ERO: 0.26 cm2 MR PISA: 3.5 cm2 SV(LVOT): 35.4 ml MR flow rate: 138.1 cm3/sec MR PISA radius: 0.74 cm Reading Physician:09:43 AM
== END ==
PROVIDERS: Family Provider Family Medicine; PCP Family Medicine; Referring Provider Family Medicine; Visit Provider Family Medicine
DX: I08.1 Rheumatic disorders of both mitral and tricuspid valves (principal); E87.70 Fluid overload, unspecified; R19.00 Intra-abdominal and pelvic swelling, mass and lump, unspecified site; R06.02 Shortness of breath
CPT/HCPCS: 93306

== ENCOUNTER → 2023-05-08 09:42 | Outpatient (CLI) | payer OTHER, MEDICAID, SELFPAY ==
[2023-05-08 10:37] LABS: Alanine Aminotransferase 16 IU/L (<35); Albumin 3.9 g/dL (3.5-5.0); Albumin Globulin Ratio 1.3 (1.0-2.8); Alkaline Phosphatase 210 U/L (38-126); Aspartate Aminotransferase 30 IU/L (14-36); BUN Creatinine Ratio 19.4 (6-22); Bilirubin Total 0.6 mg/dL (0.2-1.3); Blood Urea Nitrogen 13 mg/dL (7-17); Calcium 8.8 mg/dL (8.4-10.2); Carbon Dioxide 28 mmol/L (22-32); Chloride 100 mmol/L (98-107); Estimated Glomerular Filt Rate > 60 mL/min (>60); Globulin 2.9 g/dL (1.7-4.1); Glucose 127 mg/dL (70-100); HEMOLYSIS < 15 (0-50); Potassium 3.6 mmol/L (3.4-5.1); Sodium 137 mmol/L (137-145); Total Protein 6.8 g/dL (6.3-8.2)
== END ==
PROVIDERS: Family Provider Family Medicine; PCP Family Medicine; Referring Provider Family Medicine; Visit Provider Family Medicine
DX: E87.6 Hypokalemia (principal); K72.90 Hepatic failure, unspecified without coma; K74.60 Unspecified cirrhosis of liver
CPT/HCPCS: 36415; 80053

== ENCOUNTER → 2023-05-15 11:30 | Outpatient (CLI) | payer OTHER, MEDICAID, SELFPAY ==
[2023-05-15 13:02] LABS: Alanine Aminotransferase 15 IU/L (<35); Albumin 4.1 g/dL (3.5-5.0); Albumin Globulin Ratio 1.3 (1.0-2.8); Alkaline Phosphatase 160 U/L (38-126); Aspartate Aminotransferase 28 IU/L (14-36); Bilirubin Total 0.3 mg/dL (0.2-1.3); Blood Urea Nitrogen 26 mg/dL (7-17); Calcium 9.5 mg/dL (8.4-10.2); Carbon Dioxide 27 mmol/L (22-32); Chloride 98 mmol/L (98-107); Estimated Glomerular Filt Rate > 60 mL/min (>60); Globulin 3.2 g/dL (1.7-4.1); Glucose 119 mg/dL (70-100); HEMOLYSIS < 15 (0-50); Potassium 3.9 mmol/L (3.4-5.1); Sodium 136 mmol/L (137-145); Total Protein 7.3 g/dL (6.3-8.2)
== END ==
PROVIDERS: Family Provider Family Medicine; PCP Family Medicine; Referring Provider Family Medicine; Visit Provider Family Medicine
DX: E87.6 Hypokalemia (principal); K70.30 Alcoholic cirrhosis of liver without ascites; K72.10 Chronic hepatic failure without coma
CPT/HCPCS: 36415; 80053

== ENCOUNTER 2023-06-15 09:00 | Emergency (ER) | payer OTHER, MEDICAID, SELFPAY ==
[2023-06-15 09:19] VITALS: BP 136/71; PULSE 89; RESP 16; TEMP 37.1; O2SAT 100; BMI 20.7
--- NOTE | 2023-06-15 09:23 | DI.RAD.S_ITS ---
PROCEDURE: XR FOOT LT MIN 3V INDICATIONS: 4th/5th digit px w/ px across dorsum, stepped off step wrong TECHNIQUE: 3 views of the foot were acquired. COMPARISON: [facility], CR, XR FOOT RT MIN 3V, 10/03/2022, 13:41. [facility], CR, XR FOOT RT MIN 3V, 04/03/2020, 11:04. FINDINGS: Bones: Healed fractures of the 4th and 5th metatarsal shafts. No displaced fractures. Heterogeneous signal within the distal tibia, new from prior. Soft tissues: No tibiotalar joint effusion. Achilles tendon appears normal. Mild forefoot subcutaneous edema. IMPRESSION: No acute, displaced fracture. New heterogeneous signal within the distal tibia compared with 10/03/2022. Differential includes healing fracture or a vascular necrosis. Dictated by: Xander Mendes M.D. on 06/15/2023 at 9:41 Approved by: Xander Mendes M.D. on 06/15/2023 at 9:43
--- NOTE | 2023-06-15 10:13 | ED.LOWEXIN ---
HPI - Extremity Injury (Lower) General Chief Complaint: Extremity Injury, Lower Stated Complaint: lt foot pain, swelling Time Seen by Provider: 06/15/23 10:13 Source: patient Mode of arrival: Ambulatory Limitations: no limitations History of Present Illness HPI Narrative: 37-year-old female who is here for evaluation of a left foot injury. She states for the past couple days she has had pain along the outside of her foot. There was not 1 specific injury that caused the discomfort but states it does hurt to walk. Also thinks it has been swelling somewhat. Related Data Home Medications Medication Instructions Recorded Confirmed acetaminophen 500 mg tablet 1,000 mg PO Q6H PRN Pain (Scale 02/07/23 05/23/23 (Tylenol Extra Strength) Score 1-3) cholecalciferol (vitamin D3) 25 2,000 unit PO DAILY #0 tabs 02/07/23 05/23/23 mcg (1,000 unit) tablet (Vitamin D3) estradiol 0.025 mg/24 hr weekly 1 patch transdermal QWEEK 02/07/23 05/23/23 transdermal patch (Climara) mecobalamin (vitamin B12) 500 mcg 500 mcg PO DAILY 02/07/23 05/23/23 chewable tablet ondansetron HCl 4 mg tablet 4 mg PO BID PRN Nausea And Vomiting 02/07/23 05/23/23 progesterone micronized 200 mg 200 mg PO BEDTIME 02/07/23 05/23/23 capsule olanzapine 2.5 mg tablet 2.5 mg PO DAILY 02/18/23 05/23/23 pregabalin 75 mg capsule 75 mg PO DAILY 04/17/23 05/23/23 Previous Rx's Medication Instructions Recorded thiamine HCl (vitamin B1) 100 mg 100 mg PO DAILY #90 tabs 12/31/22 tablet oxycodone 5 mg tablet 5 mg PO Q6H PRN pain #14 tabs 02/07/23 methocarbamol 1,000 mg tablet 1,000 mg PO QID #120 tabs 03/20/23 pantoprazole 40 mg tablet,delayed 40 mg PO BID #180 tabs 04/03/23 release acamprosate 333 mg tablet,delayed See Rx Instructions .Route 04/10/23 release .COMPLEX #180 tabs spironolactone 50 mg tablet 50 mg PO DAILY #90 tabs 04/10/23 alendronate 70 mg tablet See Rx Instructions .Route 04/17/23 .COMPLEX #12 tabs furosemide 40 mg tablet 40 mg PO BID #120 tabs 04/17/23 sacubitril 24 mg-valsartan 26 mg 1 tab PO BID #90 tabs 04/30/23 tablet (Entresto) olanzapine 7.5 mg tablet 7.5 mg PO DAILY #90 tabs 05/05/23 duloxetine 60 mg capsule,delayed 60 mg PO DAILY #90 caps 06/05/23 release sprinkle Allergies Allergy/AdvReac Type Severity Reaction Status Date / Time gabapentin AdvReac Intermediate Mental Verified 05/23/23 10:06 status changes Review of Systems Constitutional Constitutional: Reports system reviewed and no additional complaints, except as documented Musculoskeletal Musculoskeletal: Reports system reviewed and no additional complaints, except as documented Integumentary/Breasts Skin/Breast: Reports system reviewed and no additional complaints, except as documented Neurologic Neurologic: Reports system reviewed and no additional complaints, except as documented Patient History Medical History Alcoholism Alcoholism in remission Ankle pain, right Anorexia Anorexia nervosa Anxiety Caloric malnutrition Depression GERD (gastroesophageal reflux disease) HFrEF (heart failure with reduced ejection fraction) Hip pain, bilateral Left ventricular hypokinesis Leukocytopenia Loose total hip arthroplasty Mitral regurgitation Neuropathy Prosthetic hip infection Tricuspid regurgitation Surgical History History of total hip arthroplasty Social History Smoking Status: Never smoker Smoking Status: Never smoker alcohol intake frequency: 0-2 drinks per day Substance Use Type: does not use Exam Initial Vital Signs Initial Vital Signs: Vital Signs Temperature 98.7 F 06/15/23 09:19 Pulse Rate 89 06/15/23 09:19 Respiratory Rate 16 06/15/23 09:19 Blood Pressure 136/71 06/15/23 09:19 Pulse Oximetry 100 06/15/23 09:19 Oxygen Delivery Method Room Air 06/15/23 09:19 Cardio Pulses: dorsalis pedis present on the left Skin General: no rashes or lesions noted Neuro Sensory Exam: no sensory deficits noted Extrem Other: Left ankle is unremarkable. Achilles tendon is intact. She does have tenderness along the 5th metatarsal. Course Orders Ordered: ED Orders 06/15/23 09:23 XR foot LT min 3V Stat Vital Signs Vital signs: Vital Signs - 8 hr 06/15/23 09:19 Temperature 98.7 F Pulse Rate 89 Respiratory Rate 16 Blood Pressure 136/71 Pulse Oximetry 100 Oxygen Delivery Method Room Air MDM - Extremity Injury (Lower) Imaging Data Extremity x-ray #1: Radiologist's Impression: PROCEDURE:? XR FOOT LT MIN 3V ? INDICATIONS:? 4th/5th digit px w/ px across dorsum, stepped off step wrong ? TECHNIQUE:? 3 views of the foot were acquired.? ? COMPARISON:? [facility], CR, XR FOOT RT MIN 3V, 10/03/2022, 13:41.? [facility], CR, XR FOOT RT MIN 3V, 04/03/2020, 11:04. ? FINDINGS:? ? Bones:? Healed fractures of the 4th and 5th metatarsal shafts.? No displaced fractures.? Heterogeneous signal within the distal tibia, new from prior. ? Soft tissues:? No tibiotalar joint effusion.? Achilles tendon appears normal.? Mild forefoot subcutaneous edema.? ? ? IMPRESSION:? No acute, displaced fracture. ? New heterogeneous signal within the distal tibia compared with 10/03/2022.? Differential includes healing fracture or a vascular necrosis. [facility] Narrative Medical decision making narrative: Patient is neurovascularly intact. No fractures or dislocations noted on the x-rays. We did discuss the sclerosis of the distal tibia. She states she has injured her ankle in the past. She is no specific pain at this point. Offered her an orthopedic shoe but she states she has 1 at home. We offered an elastic bandage but she would like to hold on this for now. Will discharge patient home with return precautions and follow-up instructions. Discharge Plan Departure Patient Disposition: Home Clinical Impression: Foot pain, left Instructions: How To Perform RICE (Rest, Ice, Compress, Elevate) Activity Restrictions/Additional Instructions: Continue to take all of your medications as directed. I do recommend that you contact your primary doctor for a follow-up. Return to the emergency department for new or worsening symptoms. Prescriptions: No Action thiamine HCl (vitamin B1) 100 mg tablet 100 mg PO DAILY Qty: 90 3RF cholecalciferol (vitamin D3) [Vitamin D3] 25 mcg (1,000 unit) tablet 2,000 unit PO DAILY Qty: 0 pantoprazole 40 mg tablet,delayed release (DR/EC) 40 mg PO BID Qty: 180 3RF acamprosate 333 mg tablet,delayed release (DR/EC) See Rx Instructions .ROUTE .COMPLEX Qty: 180 3RF Dose Instruction: TAKE 1 TABLET BY MOUTH TWICE A DAY. TAKE WITH MID-DAY MEAL AND EVENING MEAL Rx Instructions: TAKE 2 TABLET BY MOUTH THREE A DAY. TAKE WITH BREAKFAST, MID-DAY MEAL AND EVENING MEAL spironolactone 50 mg tablet 50 mg PO DAILY Qty: 90 0RF alendronate 70 mg tablet See Rx Instructions .ROUTE .COMPLEX Qty: 12 0RF Dose Instruction: TAKE 1 TABLET BY MOUTH ON FRIDAY EVERY WEEK Rx Instructions: TAKE 1 TABLET BY MOUTH ON FRIDAY EVERY WEEK Entresto 24-26 mg tablet 1 tab PO BID Qty: 90 0RF olanzapine 7.5 mg tablet 7.5 mg PO DAILY Qty: 90 3RF duloxetine 60 mg capsule, delayed rel sprinkle 60 mg PO DAILY Qty: 90 1RF pregabalin 75 mg capsule 75 mg PO DAILY furosemide 40 mg tablet 40 mg PO BID Qty: 120 2RF ondansetron HCl 4 mg tablet 4 mg PO BID PRN (Reason: Nausea And Vomiting) progesterone micronized 200 mg capsule 200 mg PO BEDTIME Rx Instructions: take one tab daily for the first 12 days of the month mecobalamin (vitamin B12) 500 mcg tablet,chewable 500 mcg PO DAILY estradiol [Climara] 0.025 mg/24 hr patch weekly 1 patch transdermal QWEEK acetaminophen [Tylenol Extra Strength] 500 mg tablet 1,000 mg PO Q6H PRN (Reason: Pain (Scale Score 1-3)) oxycodone 5 mg tablet 5 mg PO Q6H PRN (Reason: pain) Qty: 14 0RF methocarbamol 1,000 mg tablet 1,000 mg PO QID Qty: 120 0RF olanzapine 2.5 mg tablet 2.5 mg PO DAILY Referrals: Andrew Herrera MD [Primary Care Provider] - Stand Alone Forms: Patient Portal/API
== END 2023-06-15 10:28 | disposition home or self-care (01) ==
PROVIDERS: Emergency Provider Emergency Medicine; Family Provider Family Medicine; PCP Family Medicine
DX: M79.672 Pain in left foot (principal)
CPT/HCPCS: 73630; 99282; 99283

== ENCOUNTER 2023-09-20 12:00 | Emergency (ER) | payer OTHER, MEDICAID, SELFPAY ==
[2023-09-20] VITALS (9 sets, daily range): BP systolic 113–127; BP diastolic 64–90; PULSE 91–113; RESP 8–36; TEMP 36.7; O2SAT 96–98; BMI 20.3
--- NOTE | 2023-09-20 12:20 | DI.RAD.S_ITS ---
PROCEDURE: XR CHEST 1V INDICATIONS: chest pain TECHNIQUE: One view of the chest was acquired. COMPARISON: [facility], CR, XR CHEST 1V, 02/07/2023, 10:14. [facility], CR, XR CHEST 1V, 10/03/2022, 13:41. FINDINGS: Surgical changes and devices: None. Lungs and pleura: No dense consolidation or pleural effusion. Mediastinum: Normal heart size Bones and chest wall: No suspicious findings. IMPRESSION: No acute radiographic abnormality. Dictated by: Milton Irizarry M.D. on 09/20/2023 at 13:04 Approved by: Milton Irizarry M.D. on 09/20/2023 at 13:05
--- NOTE | 2023-09-20 12:33 | ED_ITS ---
HPI - Arrhythmia/Palpitations General Chief Complaint: Arrhythmia/Palpitations Stated Complaint: Palpatations, anxiety Time Seen by Provider: 09/20/23 12:22 Source: EMS Mode of arrival: EMS History of Present Illness HPI narrative: 37-year-old female with history of chronic alcoholism, liver cirrhosis, eating disorder, congestive heart failure secondary to alcohol use with ejection fraction of 25% presenting to the emergency room palpitation. This happened prior to arrival, it lasted about 1 hour, patient type it out and proximally 150 beats per minute, there was associated mild shortness of breath without chest pain. No nausea no vomiting, patient attributed her CHF secondary to chronic alcohol abuse since 15 years old, she was abstinent from alcohol for few days, but she has been drinking for last 4 days, she finished a bottle of vodka every 2 days for last 2 days. Last use was about 8:00 a.m. in the morning. In emergency room patient does not exhibit any respiratory distress, does not complain of any palpitation at this time. No dyspnea. Related Data Home Medications Medication Instructions Recorded Confirmed acetaminophen 500 mg tablet 1,000 mg PO Q6H PRN Pain (Scale 02/07/23 05/23/23 (Tylenol Extra Strength) Score 1-3) cholecalciferol (vitamin D3) 25 2,000 unit PO DAILY #0 tabs 02/07/23 05/23/23 mcg (1,000 unit) tablet (Vitamin D3) estradiol 0.025 mg/24 hr weekly 1 patch transdermal QWEEK 02/07/23 05/23/23 transdermal patch (Climara) mecobalamin (vitamin B12) 500 mcg 500 mcg PO DAILY 02/07/23 05/23/23 chewable tablet ondansetron HCl 4 mg tablet 4 mg PO BID PRN Nausea And Vomiting 02/07/23 05/23/23 progesterone micronized 200 mg 200 mg PO BEDTIME 02/07/23 05/23/23 capsule olanzapine 2.5 mg tablet 2.5 mg PO DAILY 02/18/23 05/23/23 pregabalin 75 mg capsule 75 mg PO DAILY 04/17/23 05/23/23 Previous Rx's Medication Instructions Recorded thiamine HCl (vitamin B1) 100 mg 100 mg PO DAILY #90 tabs 12/31/22 tablet oxycodone 5 mg tablet 5 mg PO Q6H PRN pain #14 tabs 02/07/23 methocarbamol 1,000 mg tablet 1,000 mg PO QID #120 tabs 03/20/23 pantoprazole 40 mg tablet,delayed 40 mg PO BID #180 tabs 04/03/23 release acamprosate 333 mg tablet,delayed See Rx Instructions .Route 04/10/23 release .COMPLEX #180 tabs spironolactone 50 mg tablet 50 mg PO DAILY #90 tabs 04/10/23 furosemide 40 mg tablet 40 mg PO BID #120 tabs 04/17/23 olanzapine 7.5 mg tablet 7.5 mg PO DAILY #90 tabs 05/05/23 duloxetine 60 mg capsule,delayed 60 mg PO DAILY #90 caps 06/05/23 release sprinkle alendronate 70 mg tablet See Rx Instructions .Route 07/07/23 .COMPLEX #12 tabs sacubitril 24 mg-valsartan 26 mg 1 tab PO BID #180 tabs 07/28/23 tablet (Entresto) lorazepam 1 mg tablet (Ativan) 1 mg PO TID PRN alcohol withdrawal 09/20/23 #12 tabs magnesium chloride 71.5 mg 71.5 mg PO BID #30 tabs 09/20/23 (magnesium chloride) tablet,delayed release (Slow-Mag) ondansetron 4 mg disintegrating 4 mg PO Q6H PRN nausea and 09/20/23 tablet vomiting #14 tabs Allergies Allergy/AdvReac Type Severity Reaction Status Date / Time gabapentin AdvReac Intermediate Mental Verified 09/20/23 12:11 status changes Review of Systems Review of Systems Narrative: All systems reviewed, negative except what is dictated in HPI Cardiovascular Cardiovascular: Denies chest pain at rest, Denies chest pain with activity, Reports palpitations and Reports dyspnea Respiratory Respiratory: Reports dyspnea Endocrine Endocrine: Reports palpitations Patient History Medical History Alcoholism Alcoholism in remission Ankle pain, right Anorexia Anorexia nervosa Anxiety Caloric malnutrition Depression GERD (gastroesophageal reflux disease) HFrEF (heart failure with reduced ejection fraction) Hip pain, bilateral Left ventricular hypokinesis Leukocytopenia Loose total hip arthroplasty Mitral regurgitation Neuropathy Prosthetic hip infection Tricuspid regurgitation Surgical History History of total hip arthroplasty Social History Smoking Status: Never smoker Smoking Status: Never smoker alcohol intake frequency: 0-2 drinks per day Substance Use Type: does not use Exam Initial Vital Signs Initial Vital Signs: Vital Signs Temperature 98.0 F 09/20/23 12:07 Pulse Rate 113 H 09/20/23 12:07 Respiratory Rate 18 09/20/23 12:07 Blood Pressure 123/86 09/20/23 12:07 Pulse Oximetry 98 09/20/23 12:07 Oxygen Delivery Method Room Air 09/20/23 12:07 Const General: cooperative, healthy appearing, comfortable, well developed and well groomed [facility] Head: normal to inspection, normocephalic and atraumatic Eyes General: Yes appearance normal, both eyes and all related structures Visual Garcia: normal visual garcia by confrontation Neck Neck: normal visual inspection, full ROM and no meningeal signs Chest Chest: normal inspection of the chest and normal palpation of entire chest wall Resp Effort & Inspection: normal respiratory effort, able to speak in complete sentences, normal respiratory pattern and no audible wheezes Cardio Palpation: normal PMI and abnormal PMI Rate: regular rate Rhythm: regular rhythm Heart Sounds: S1 normal and S2 normal GI Inspection: normal to inspection and abdominal wall ecchymosis General: bimanual renal exam normal bilaterally and bladder normal to inspection Back/Spine/Pelvis Back: normal to inspection Course Orders Ordered: ED Orders 09/20/23 12:20 XR chest 1V Stat EKG-12 Lead Stat 09/20/23 12:36 BNP [NT-proBNP (BNP-Adult 18+)] Stat Complete Blood Count AUTO DIFF Stat Comprehensive Metabolic Panel Stat ETOH [Ethanol (ETOH)] Stat Lipase Stat Magnesium Stat PTT Partial Thromboplastin Alexy Stat Prothrombin Time INR Stat TSH [Thyroid Stimulating Hormone] Stat Troponin & CK Cardiac Panel Stat 09/20/23 13:01 Urine Microscopic Stat Magnesium Sulfate (Magnesium Sulfate) 2 gm in 50 mls @ 25 mls/hr IV NOW ONE Stop: 09/20/23 17:59 Last Admin: 09/20/23 16:19 Dose: 25 mls/hr Documented By: BERTA Co-signed By: MARCOS Discontinued Medications Aspirin (Aspirin 81 Mg Chew Tab) 324 mg PO NOW ONE Stop: 09/20/23 12:21 Last Admin: 09/20/23 13:04 Dose: Not Given Documented By: BERTA Sodium Chloride (Normal Saline 0.9%) 1,000 mls @ 1,000 mls/hr IV BOLUS ONE Stop: 09/20/23 15:58 Last Infusion: 09/20/23 16:18 Dose: Infused Documented By: Admin: 09/20/23 15:13 Dose: 1,000 mls/hr Documented By: BERTA Nicotine (Nicotine 14 Patch) 14 mg TOP NOW ONE Stop: 09/20/23 15:01 Last Admin: 09/20/23 15:14 Dose: 14 mg Documented By: BERTA Vital Signs Vital signs: Vital Signs - 8 hr 09/20/23 12:07 09/20/23 13:02 09/20/23 13:30 Temperature 98.0 F Pulse Rate 113 H 95 H 91 H Respiratory Rate 18 10 L 8 L Blood Pressure 123/86 Pulse Oximetry 98 97 96 Oxygen Delivery Method Room Air Room Air 09/20/23 13:30 09/20/23 14:00 09/20/23 14:00 Temperature Pulse Rate 100 H Respiratory Rate 15 Blood Pressure 127/68 122/90 Pulse Oximetry 96 Oxygen Delivery Method 09/20/23 14:30 09/20/23 14:30 09/20/23 15:00 Temperature Pulse Rate 109 H 101 H Respiratory Rate 36 H 23 Blood Pressure 113/70 Pulse Oximetry 96 96 Oxygen Delivery Method 09/20/23 15:00 09/20/23 15:30 09/20/23 15:30 Temperature Pulse Rate 102 H Respiratory Rate 21 Blood Pressure 126/69 117/64 Pulse Oximetry 98 Oxygen Delivery Method MDM - Arrhythmia/Palpitations Lab Data 09/20/23 12:36 09/20/23 12:36 Labs: Lab Results 09/20/23 09/20/23 Range/Units 12:36 13:01 WBC 3.7 L (4.5-11.0) X10^3/uL RBC 4.84 (4.0-5.2) X10^6/uL Hgb 15.8 (12.0-16.0) g/dL Hct 44.4 (36-46) % MCV 91.7 (80-100) fL MCH 32.6 (26-34) PG MCHC 35.6 (30-36) % RDW 16.4 H (11.6-14.8) % Plt Count 225 (150-400) X10^3/uL Neut % (Auto) 62.2 (50-75) % Lymph % (Auto) 23.9 L (25-40) % George % (Auto) 12.2 (3-14) % Eos % (Auto) 0.3 L (2-4) % Baso % (Auto) 1.4 (0-2) % Neut # (Auto) 2300 (2313-9238) /uL Lymph # (Auto) 900 L (1076-4856) /uL George # (Auto) 400 (0-900) /uL Eos # (Auto) 0 (0-450) /uL Baso # (Auto) 100 (0-100) /uL PT 10.6 (9.4-12.5) SECONDS INR 0.9 (0.9-1.3) APTT 29 (25.1-36.5) SECONDS Sodium 135 L (137-145) mmol/L Potassium 3.1 L (3.4-5.1) mmol/L Chloride 87 L (98-107) mmol/L Carbon Dioxide 20 L (22-32) mmol/L BUN 12 (7-17) mg/dL Creatinine 0.74 (0.52-1.04) mg/dL Estimated GFR > 60 (>60) mL/min BUN/Creatinine Ratio 16.2 (6-22) Glucose 70 (70-100) mg/dL Calcium 9.4 (8.4-10.2) mg/dL Magnesium 1.4 L (1.6-2.3) mg/dL Total Bilirubin 0.9 (0.2-1.3) mg/dL AST 354 H (14-36) IU/L ALT 123 H (<35) IU/L Alkaline Phosphatase 151 H (38-126) U/L Total Creatine Kinase 203 H (30-135) U/L Troponin I 0.012 (0.01-0.034) ng/mL NT-Pro-B Natriuret Pep 62 (<125) pg/mL Total Protein 9.1 H (6.3-8.2) g/dL Albumin 5.2 H (3.5-5.0) g/dL Globulin 3.9 (1.7-4.1) g/dL Albumin/Globulin Ratio 1.3 (1.0-2.8) Lipase 72 (23-300) U/L TSH 1.93 (0.47-4.68) uIU/mL Urine RBC 1-5/hpf (0-5/HPF) Urine WBC None seen (0-5/HPF) Ur Squamous Epith Cells None seen (0-5/HPF) Urine Bacteria Occasional (0-1) (None) Ur Culture Indicated? Cult not indicated Ethyl Alcohol 338 H ( - 10) mg/dL Point of Care Testing Test Results Negative Urine Dip Bedside Urine Glucose 100 mg/dl Bedside Urine Bilirubin - Negative Bedside Urine Ketone ++ 40 Urine Specific [place] 1.010 Bedside Urine Occult Blood + Bedside Urine pH 6.0 Bedside Urine Protein + 30 Bedside Urine Urobilinogen - Negative Bedside Urine Nitrite - Negative Bedside Urine Leukocytes - Negative Esterase ECG Data Interpretation: Normal sinus heart rate of 100 tachycardia, [place] 160 QRS 88 QT 372 QTC 479, T-wave inversion in the septal lateral leads, T-wave inversion in inferior lead, MDM Narrative Medical decision making narrative: 37-year-old female with history of chronic alcoholism, liver cirrhosis, eating disorder, congestive heart failure secondary to alcohol use with ejection fraction of 25% presenting to the emergency room palpitation. This happened prior to arrival, it lasted about 1 hour, patient type it out and proximally 150 beats per minute, there was associated mild shortness of breath without chest pain. No nausea no vomiting, patient attributed her CHF secondary to chronic alcohol abuse since 15 years old, she was abstinent from alcohol for few days, but she has been drinking for last 4 days, she finished a bottle of vodka every 2 days for last 2 days. Last use was about 8:00 a.m. in the morning. In emergency room patient does not exhibit any respiratory distress, does not complain of any palpitation at this time. No dyspnea. Based on my H&P differential diagnosis include alcohol withdrawal potential alcohol intoxication, cardiomyopathy cardiac arrhythmia with tachycardia dehydration. Patient is agreeable to evaluating surgeon fluid management and electrolyte study including magnesium thyroid and alcohol level study. Patient has alcohol level of 0.38, she is otherwise eventually alert not having withdrawal symptom at this time, There is hypo magnesium that we need to replace she is agreeable. Patient is reassessed at 5:00 p.m., at this time she is accompanied by her mother. We talked about infusion of magnesium that knee time, we talked about there is elevated liver function tests which has been cyclic pattern according to her drinking behavior via my chart review, I feel this liver function was slowly recover as patient cut back down on her alcohol consumption. Clearly need to watch out for withdrawal symptoms such as acute nausea vomiting tachycardia palpitation and withdrawal seizure. We will give her a prescription of Ativan to take over the next 3 days for withdrawal symptom. I have also offered her to arrange rehab detox center placement, at this time she declines. She would like to go home. We talked about staying with her mother for the next 2 3 days when patient has withdrawal possibility. Mother understood and agree. At the time of discharge patient is stable all questions addressed, Discharge Plan Departure Patient Disposition: Home Clinical Impression: Tachycardia, Alcoholic cardiomyopathy, Hypomagnesemia, Acute alcoholic hepatitis Instructions: Alcoholic Hepatitis (Alternative Therapy), DI for Cardiomyopathy, DI for Hypomagnesemia Activity Restrictions/Additional Instructions: Please take Ativan as needed for withdrawal symptoms over the next 3 days, if there is withdrawal seizure called the ambulance return to the emergency room by ambulance, interact with primary care doctor for possible arrangement for alcohol rehab detox Prescriptions: New lorazepam [Ativan] 1 mg tablet 1 mg PO TID PRN (Reason: alcohol withdrawal) Qty: 12 0RF Slow-Mag 71.5 mg tablet,delayed release (DR/EC) 71.5 mg PO BID Qty: 30 0RF ondansetron 4 mg tablet,disintegrating 4 mg PO Q6H PRN (Reason: nausea and vomiting) Qty: 14 0RF No Action thiamine HCl (vitamin B1) 100 mg tablet 100 mg PO DAILY Qty: 90 3RF cholecalciferol (vitamin D3) [Vitamin D3] 25 mcg (1,000 unit) tablet 2,000 unit PO DAILY Qty: 0 pantoprazole 40 mg tablet,delayed release (DR/EC) 40 mg PO BID Qty: 180 3RF acamprosate 333 mg tablet,delayed release (DR/EC) See Rx Instructions .ROUTE .COMPLEX Qty: 180 3RF Dose Instruction: TAKE 1 TABLET BY MOUTH TWICE A DAY. TAKE WITH MID-DAY MEAL AND EVENING MEAL Rx Instructions: TAKE 2 TABLET BY MOUTH THREE A DAY. TAKE WITH BREAKFAST, MID-DAY MEAL AND EVENING MEAL spironolactone 50 mg tablet 50 mg PO DAILY Qty: 90 0RF olanzapine 7.5 mg tablet 7.5 mg PO DAILY Qty: 90 3RF duloxetine 60 mg capsule, delayed rel sprinkle 60 mg PO DAILY Qty: 90 1RF alendronate 70 mg tablet See Rx Instructions .ROUTE .COMPLEX Qty: 12 0RF Dose Instruction: TAKE 1 TABLET BY MOUTH ON FRIDAY EVERY WEEK Rx Instructions: TAKE 1 TABLET BY MOUTH ON FRIDAY EVERY WEEK Entresto 24-26 mg tablet 1 tab PO BID Qty: 180 0RF pregabalin 75 mg capsule 75 mg PO DAILY furosemide 40 mg tablet 40 mg PO BID Qty: 120 2RF ondansetron HCl 4 mg tablet 4 mg PO BID PRN (Reason: Nausea And Vomiting) progesterone micronized 200 mg capsule 200 mg PO BEDTIME Rx Instructions: take one tab daily for the first 12 days of the month mecobalamin (vitamin B12) 500 mcg tablet,chewable 500 mcg PO DAILY estradiol [Climara] 0.025 mg/24 hr patch weekly 1 patch transdermal QWEEK acetaminophen [Tylenol Extra Strength] 500 mg tablet 1,000 mg PO Q6H PRN (Reason: Pain (Scale Score 1-3)) oxycodone 5 mg tablet 5 mg PO Q6H PRN (Reason: pain) Qty: 14 0RF methocarbamol 1,000 mg tablet 1,000 mg PO QID Qty: 120 0RF olanzapine 2.5 mg tablet 2.5 mg PO DAILY Referrals: Andrew Herrera MD [Primary Care Provider] - Stand Alone Forms: Patient Portal/API
[2023-09-20 12:54] LABS: INR 0.9 (0.9-1.3); Prothrombin Time 10.6 SECONDS (9.4-12.5)
[2023-09-20 12:56] LABS: PTT Partial Thromboplastin Tim 29 SECONDS (25.1-36.5)
[2023-09-20 12:57] LABS: Add Manual Diff / Slide Review NO; Basophils Absolute Auto 100 /uL (0-100); Basophils Percent Auto 1.4 % (0-2); Eosinophils Absolute Auto 0 /uL (0-450); Eosinophils Percent Auto 0.3 % (2-4); Hematocrit 44.4 % (36-46); Hemoglobin 15.8 g/dL (12.0-16.0); Lymphocytes Absolute Auto 900 /uL (1100-4500); Lymphocytes Percent Auto 23.9 % (25-40); Mean Corpuscular HGB Conc 35.6 % (30-36); Mean Corpuscular Hemoglobin 32.6 PG (26-34); Mean Corpuscular Volume 91.7 fL (80-100); Monocytes Absolute Auto 400 /uL (0-900); Monocytes Percent Auto 12.2 % (3-14); Neutrophils Absolute Auto 2300 /uL (1500-7000); Neutrophils Percent Auto 62.2 % (50-75); Platelet Count 225 X10^3/uL (150-400); Red Blood Cell Count 4.84 X10^6/uL (4.0-5.2); Red Cell Distribution Width 16.4 % (11.6-14.8); White Blood Cell Count 3.7 X10^3/uL (4.5-11.0)
[2023-09-20 12:58] LABS: Alanine Aminotransferase 123 IU/L (<35); Albumin 5.2 g/dL (3.5-5.0); Albumin Globulin Ratio 1.3 (1.0-2.8); Alkaline Phosphatase 151 U/L (38-126); Aspartate Aminotransferase 354 IU/L (14-36); BUN Creatinine Ratio 16.2 (6-22); Bilirubin Total 0.9 mg/dL (0.2-1.3); Blood Urea Nitrogen 12 mg/dL (7-17); Calcium 9.4 mg/dL (8.4-10.2); Carbon Dioxide 20 mmol/L (22-32); Chloride 87 mmol/L (98-107); Creatine Kinase 203 U/L (30-135); Estimated Glomerular Filt Rate > 60 mL/min (>60); Globulin 3.9 g/dL (1.7-4.1); Glucose 70 mg/dL (70-100); HEMOLYSIS 18 (0-50); Lipase 72 U/L (23-300); Magnesium 1.4 mg/dL (1.6-2.3); Potassium 3.1 mmol/L (3.4-5.1); Sodium 135 mmol/L (137-145); Total Protein 9.1 g/dL (6.3-8.2)
[2023-09-20 13:09] LABS: Troponin I 0.012 ng/mL (0.01-0.034)
[2023-09-20 13:25] LABS: Ethanol (ETOH) 338 mg/dL
[2023-09-20 13:29] LABS: Thyroid Stimulating Hormone 1.93 uIU/mL (0.47-4.68)
[2023-09-20 13:30] LABS: Bacteria Urine Occasional (0-1); RBC Urine 1-5/HPF (0-5/HPF); WBC Urine None Seen (0-5/HPF)
[2023-09-20 13:31] LABS: Culture Indicated Urine Cult Not Indicated; Squamous Epithelial Cell Urine None Seen (0-5/HPF)
[2023-09-20 13:49] LABS: NT-proBNP (BNP-Adult 18+) 62 pg/mL (<125)
[2023-09-20] MEDS: SODIUM CHLORIDE 0.9% 1,000 ML 1000 ML IV (15:13)
[2023-09-20] MEDS: NICOTINE 14 PATCH 14 MG TOP (15:14)
[2023-09-20] MEDS: MAGNESIUM SULFATE 2 GM/50 ML PIGGYBACK IV (16:19)
[2023-09-20] MEDS: LORazepam 0.5 MG TABLET 2 MG PO (17:16)
== END 2023-09-20 18:25 | disposition home or self-care (01) ==
PROVIDERS: Emergency Provider Emergency Medicine Emergency Medical Services; Family Provider Family Medicine; PCP Family Medicine
DX: R00.0 Tachycardia, unspecified (principal); I42.6 Alcoholic cardiomyopathy; K70.10 Alcoholic hepatitis without ascites; E83.42 Hypomagnesemia; Z79.899 Other long term (current) drug therapy
CPT/HCPCS: 36415; 71045; 80053; 80320; 81003; 81015; 81025; 82550; 83690; 83735; 83880; 84443; 84484; 85025; 85610; 85730; 93005; 96361; 96365; 96366; 99284; J3475

== ENCOUNTER 2023-09-22 21:25 | Inpatient (IN) | payer MEDICAID, OTHER, SELFPAY ==
[2023-09-22 21:27] VITALS: BP 118/56; PULSE 84; RESP 18; TEMP 36.2; O2SAT 100; BMI 21.5
--- NOTE | 2023-09-22 21:36 | PC.NURSE ---
Mom reports patient has had similar reactions to ativan in the past with use.
[2023-09-22 22:02] LABS: Hematocrit 38.7 % (36-46); Hemoglobin 13.3 g/dL (12.0-16.0); Mean Corpuscular HGB Conc 34.5 % (30-36); Mean Corpuscular Hemoglobin 31.9 PG (26-34); Mean Corpuscular Volume 92.6 fL (80-100); Platelet Count 98 X10^3/uL (150-400); Red Blood Cell Count 4.18 X10^6/uL (4.0-5.2); Red Cell Distribution Width 16.2 % (11.6-14.8)
[2023-09-22 22:05] LABS: Alanine Aminotransferase 123 IU/L (<35); Albumin 4.1 g/dL (3.5-5.0); Albumin Globulin Ratio 1.2 (1.0-2.8); Alkaline Phosphatase 157 U/L (38-126); Aspartate Aminotransferase 271 IU/L (14-36); BUN Creatinine Ratio 4.9 (6-22); Bilirubin Total 0.8 mg/dL (0.2-1.3); Blood Urea Nitrogen 4 mg/dL (7-17); Calcium 9.9 mg/dL (8.4-10.2); Carbon Dioxide 33 mmol/L (22-32); Chloride 94 mmol/L (98-107); Estimated Glomerular Filt Rate > 60 mL/min (>60); Ethanol (ETOH) < 10 mg/dL; Globulin 3.4 g/dL (1.7-4.1); Glucose 72 mg/dL (70-100); HEMOLYSIS < 15 (0-50); Magnesium 1.2 mg/dL (1.6-2.3); Potassium 3.1 mmol/L (3.4-5.1); Sodium 136 mmol/L (137-145); Total Protein 7.5 g/dL (6.3-8.2); White Blood Cell Count 1.9 X10^3/uL (4.5-11.0)
[2023-09-22 22:06] LABS: Acetaminophen < 10 ug/mL (10-30); Add Manual Diff / Slide Review YES; Salicylate < 1.0 mg/dL (<20)
[2023-09-22 22:36] LABS: Free T4, Direct Thyroxine 1.45 ng/dL (0.78-2.19)
[2023-09-22 22:39] LABS: Neutrophils Absolute Manual 969 /uL (3000-5900); Total Cells Counted 100
[2023-09-22 22:42] LABS: Anisocytosis 2+; Macrocytosis 1+; Microcytosis 1+; Tear Drop Cells 1+
[2023-09-22 22:50] LABS: Thyroid Stimulating Hormone 6.27 uIU/mL (0.47-4.68)
[2023-09-22 23:32] VITALS: TEMP 36.3
--- NOTE | 2023-09-22 23:54 | ED.GENADULT ---
HPI - General Adult General Chief complaint: Toxicology Problem Stated complaint: hallucinations/detoxing Time Seen by Provider: 09/22/23 23:33 Source: patient and family Mode of arrival: Ambulatory History of Present Illness HPI narrative: 37-year-old woman with a history of cirrhosis, alcohol use disorder, congestive heart failure failure secondary to both with recent ejection fraction at 25%. She had been doing moderately well avoiding alcohol for a few months and over the last weeks had significant return to use. On the she decided that she wanted to stop drinking was seen in the emergency department noted to have an alcoholic hepatitis treated with oral Ativan and discharged home. She is now 48 hours into her alcohol avoidance and is beginning to have significant withdrawal symptoms that are most consistent with delirium tremens. She is concerned that she is allergic to her Ativan. She describes hearing voices, seeing things, spiders in the room, little people and spiders crawling over her skin. CIWA-Ar for Alcohol Withdrawal RESULT SUMMARY: 27 points INPUTS: Nausea/vomiting ?> 4 = Intermittent nausea with dry heaves Tremor ?> 1 = Not visible, but can be felt fingertip to fingertip Paroxysmal sweats ?> 0 = No sweat visible Anxiety ?> 4 = Moderately anxious, or guarded, so anxiety is inferred Agitation ?> 4 = Moderately fidgety and restless Tactile disturbances ?> 4 = Moderately severe hallucinations Auditory disturbances ?> 4 = Moderately severe hallucinations Visual disturbances ?> 4 = Moderately severe hallucinations Headache/fullness in head ?> 2 = Mild Orientation/clouding of sensorium ?> 0 = Oriented, can do serial additions Related Data Home Medications Medication Instructions Recorded Confirmed acetaminophen 500 mg tablet 1,000 mg PO Q6H PRN Pain (Scale 02/07/23 05/23/23 (Tylenol Extra Strength) Score 1-3) cholecalciferol (vitamin D3) 25 2,000 unit PO DAILY #0 tabs 02/07/23 05/23/23 mcg (1,000 unit) tablet (Vitamin D3) estradiol 0.025 mg/24 hr weekly 1 patch transdermal QWEEK 02/07/23 05/23/23 transdermal patch (Climara) mecobalamin (vitamin B12) 500 mcg 500 mcg PO DAILY 02/07/23 05/23/23 chewable tablet ondansetron HCl 4 mg tablet 4 mg PO BID PRN Nausea And Vomiting 02/07/23 05/23/23 progesterone micronized 200 mg 200 mg PO BEDTIME 02/07/23 05/23/23 capsule olanzapine 2.5 mg tablet 2.5 mg PO DAILY 02/18/23 05/23/23 pregabalin 75 mg capsule 75 mg PO DAILY 04/17/23 05/23/23 Previous Rx's Medication Instructions Recorded thiamine HCl (vitamin B1) 100 mg 100 mg PO DAILY #90 tabs 12/31/22 tablet oxycodone 5 mg tablet 5 mg PO Q6H PRN pain #14 tabs 02/07/23 methocarbamol 1,000 mg tablet 1,000 mg PO QID #120 tabs 03/20/23 pantoprazole 40 mg tablet,delayed 40 mg PO BID #180 tabs 04/03/23 release acamprosate 333 mg tablet,delayed See Rx Instructions .Route 04/10/23 release .COMPLEX #180 tabs spironolactone 50 mg tablet 50 mg PO DAILY #90 tabs 04/10/23 furosemide 40 mg tablet 40 mg PO BID #120 tabs 04/17/23 olanzapine 7.5 mg tablet 7.5 mg PO DAILY #90 tabs 05/05/23 duloxetine 60 mg capsule,delayed 60 mg PO DAILY #90 caps 06/05/23 release sprinkle alendronate 70 mg tablet See Rx Instructions .Route 07/07/23 .COMPLEX #12 tabs sacubitril 24 mg-valsartan 26 mg 1 tab PO BID #180 tabs 07/28/23 tablet (Entresto) lorazepam 1 mg tablet (Ativan) 1 mg PO TID PRN alcohol withdrawal 09/20/23 #12 tabs magnesium chloride 71.5 mg 71.5 mg PO BID #30 tabs 09/20/23 (magnesium chloride) tablet,delayed release (Slow-Mag) magnesium chloride 71.5 mg 71.5 mg PO BID #30 tabs 09/20/23 (magnesium chloride) tablet,delayed release (Slow-Mag) ondansetron 4 mg disintegrating 4 mg PO Q6H PRN nausea and 09/20/23 tablet vomiting #14 tabs ondansetron 4 mg disintegrating 4 mg PO Q6H PRN nausea and 09/20/23 tablet vomiting #14 tabs Allergies Allergy/AdvReac Type Severity Reaction Status Date / Time gabapentin AdvReac Intermediate Mental Verified 09/22/23 21:27 status changes Review of Systems Review of Systems Narrative: Pertinent positive and negative findings as per HPI Patient History Medical History (Updated 09/23/23 @ 01:19 by Michel De La Cruz MD) Pancytopenia Tricuspid regurgitation Mitral regurgitation HFrEF (heart failure with reduced ejection fraction) Left ventricular hypokinesis Hip pain, bilateral 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 Leukocytopenia GERD (gastroesophageal reflux disease) Caloric malnutrition Anorexia nervosa Neuropathy Depression Anxiety Alcoholism in remission Ankle pain, right Alcoholism Anorexia Surgical History History of total hip arthroplasty Social History Smoking Status: Never smoker Smoking Status: Never smoker alcohol intake frequency: 0-2 drinks per day Substance Use Type: does not use Exam Initial Vital Signs Initial Vital Signs: Vital Signs Temperature 97.1 F L 09/22/23 21:27 Pulse Rate 84 09/22/23 21:27 Respiratory Rate 18 09/22/23 21:27 Blood Pressure 118/56 L 09/22/23 21:27 Pulse Oximetry 100 09/22/23 21:27 Oxygen Delivery Method Room Air 09/22/23 21:27 General: Pale, mild distress but Able to give a complete and coherent history. Well-nourished well-developed HEENT: Moist mucous membranes, normal sclera with reactive pupils, Respiratory: Lungs are clear to auscultation, no wheezing no rales no rhonchi. Full and symmetrical air movement Cardiac: Regular rate and rhythm no murmurs no bruits Abdomen: Soft, nontender, good bowel tones, no flank pain Skin: Warm and dry, no rashes, no significant diaphoresis Neurologic: Moving all extremities, she has a fine motor tremor, wide-based unstable gait Extremities: No trauma, well perfused Psych: Cooperative, anxious, noting visual and auditory hallucinations but able to carry on conversation. She is focused with reasonable eye contact Course Orders Ordered: ED Orders 09/22/23 21:45 Acetaminophen Stat Complete Blood Count AUTO DIFF Stat Comprehensive Metabolic Panel Stat Ethanol (ETOH) Stat Free T4, Direct Thyroxine Stat Magnesium Stat Salicylate Stat Thyroid Stimulating Hormone Stat 09/23/23 00:03 PHOS [Phosphorous] Stat 09/23/23 00:06 Urine Drug Screen, Rapid Stat 09/23/23 00:26 EKG-12 Lead Stat Duloxetine HCl (Duloxetine 30 Mg Capsule) 60 mg PO DAILY [facility] Folic Acid (Folic Acid 1 Mg Tablet) 1 mg PO DAILY JACINTO Lorazepam (Lorazepam 2 Mg/Ml Inj) 0 mg IV CIWAPRN PRN; Protocol PRN Reason: Alcohol Withdrawal Last Admin: 09/23/23 02:32 Dose: 2 mg Documented By: ROBERT Lorazepam (Lorazepam 1 Mg Tablet) 0 mg PO CIWAPRN PRN; Protocol PRN Reason: Alcohol Withdrawal Last Admin: 09/23/23 03:35 Dose: 2 mg Documented By: ROBERT Multivitamins (Multivitamin 1 Tablet) 1 tab PO DAILY JACINTO Naloxone HCl (Naloxone 0.4 Mg/Ml Vial) 0.2 mg IV Q2MIN PRN PRN Reason: Opiate Reversal Non-Formulary Medication (Sacubitril-Valsartan [Entresto]) 1 tab PO BID JACINTO Pantoprazole Sodium (Pantoprazole 40 Mg Vial) 40 mg IV DAILY JACINTO Pregabalin (Pregabalin 75 Mg Capsule) 75 mg PO DAILY JACINTO Spironolactone (Spironolactone 25 Mg Tablet) 50 mg PO DAILY JACINTO Thiamine HCl (Thiamine 100 Mg Tablet) 100 mg PO DAILY [facility] Stop: 09/26/23 09:01 Discontinued Medications Thiamine HCl 100 mg/ Sodium (Chloride) 101 mls @ 404 mls/hr IV NOW ONE Stop: 09/23/23 00:00 Last Infusion: 09/23/23 00:41 Dose: Infused Documented By: Admin: 09/23/23 00:17 Dose: 404 mls/hr Documented By: ROBERT Magnesium Sulfate (Magnesium Sulfate) 2 gm in 50 mls @ 150 mls/hr IV NOW ONE Stop: 09/23/23 00:18 Last Infusion: 09/23/23 01:16 Dose: Infused Documented By: ROBERT Co-signed By: LOGAN Admin: 09/23/23 00:51 Dose: 150 mls/hr Documented By: ROBERT Co-signed By: ANNE MARIE POTASSIUM CHLORIDE IN WATER (Potassium Cl 10 Meq/100 Ml Suri) 10 meq in 100 mls @ 100 mls/hr IV Q1H JACINTO Stop: 09/23/23 01:44 Last Infusion: 09/23/23 03:46 Dose: Infused Documented By: Admin: 09/23/23 02:22 Dose: 100 mls/hr Documented By: Infusion: 09/23/23 02:17 Dose: Infused Documented By: Admin: 09/23/23 01:17 Dose: 100 mls/hr Documented By: ROBERT Lactated Ringer's (Lactated Ringers) 1,000 mls @ 1,000 mls/hr IV BOLUS ONE Stop: 09/23/23 01:13 Last Infusion: 09/23/23 02:23 Dose: Infused Documented By: Admin: 09/23/23 01:12 Dose: 1,000 mls/hr Documented By: ROBERT Ondansetron HCl (Ondansetron 4 Mg/2 Ml Inj) 4 mg IV NOW ONE Stop: 09/23/23 00:00 Last Admin: 09/23/23 00:41 Dose: 4 mg Documented By: ROBERT Phenobarbital (Phenobarbital 65 Mg/Ml Vial) 260 mg IV NOW ONE Stop: 09/23/23 00:15 Last Admin: 09/23/23 00:41 Dose: 260 mg Documented By: ROBERT Potassium Chloride (Potassium Chloride 20 Meq Tab) 40 meq PO NOW ONE Stop: 09/23/23 00:00 Last Admin: 09/23/23 00:18 Dose: 40 meq Documented By: ROBERT Vital Signs Vital signs: Vital Signs - 8 hr 09/22/23 21:27 09/22/23 23:32 Temperature 97.1 F L 97.4 F L Pulse Rate 84 Respiratory Rate 18 Blood Pressure 118/56 L Pulse Oximetry 100 Oxygen Delivery Method Room Air Medical Decision Making Lab Data 09/22/23 21:45 09/22/23 21:45 Labs: Lab Results 09/22/23 09/23/23 Range/Units 21:45 00:06 WBC 1.9 L* (4.5-11.0) X10^3/uL RBC 4.18 (4.0-5.2) X10^6/uL Hgb 13.3 (12.0-16.0) g/dL Hct 38.7 (36-46) % MCV 92.6 (80-100) fL MCH 31.9 (26-34) PG MCHC 34.5 (30-36) % RDW 16.2 H (11.6-14.8) % Plt Count 98 L (150-400) X10^3/uL Neut % (Auto) Not Reportable Lymph % (Auto) Not Reportable [place] % (Auto) Not Reportable Eos % (Auto) Not Reportable Baso % (Auto) Not Reportable Lymph # (Auto) Not Reportable [place] # (Auto) Not Reportable Baso # (Auto) Not Reportable Total Counted 100 Seg Neutrophils % 50.0 (38-70) % Band Neutrophils % 1.0 L (3-7) % Lymphocytes % (Manual) 41.0 (25-45) % Monocytes % (Manual) 7.0 (2-11) % Basophils % (Manual) 1.0 (0-1) % Neutrophils # (Manual) 969 L (0498-2994) /uL RBC Morphology See below Anisocytosis 2+ H Microcytosis 1+ H Macrocytosis 1+ H Tear Drop Cells 1+ H Sodium 136 L (137-145) mmol/L Potassium 3.1 L (3.4-5.1) mmol/L Chloride 94 L (98-107) mmol/L Carbon Dioxide 33 H (22-32) mmol/L BUN 4 L (7-17) mg/dL Creatinine 0.82 (0.52-1.04) mg/dL Estimated GFR > 60 (>60) mL/min BUN/Creatinine Ratio 4.9 L (6-22) Glucose 72 (70-100) mg/dL Calcium 9.9 (8.4-10.2) mg/dL Phosphorus 2.8 (2.5-4.5) mg/dL Magnesium 1.2 L (1.6-2.3) mg/dL Total Bilirubin 0.8 (0.2-1.3) mg/dL AST 271 H (14-36) IU/L ALT 123 H (<35) IU/L Alkaline Phosphatase 157 H (38-126) U/L Total Protein 7.5 (6.3-8.2) g/dL Albumin 4.1 (3.5-5.0) g/dL Globulin 3.4 (1.7-4.1) g/dL Albumin/Globulin Ratio 1.2 (1.0-2.8) TSH 6.27 H D (0.47-4.68) uIU/mL Free T4 1.45 (0.78-2.19) ng/dL Salicylates < 1.0 (<20) mg/dL U Opiates 300ng/mL cut Negative (Negative) Ur Oxycodone Screen Positive H (Negative) Urine Methadone Screen Negative (Negative) Acetaminophen < 10 (10-30) ug/mL Ur Barbiturates Screen Negative (Negative) U Tricyclic Antidepress Negative (Negative) Ur Phencyclidine Scrn Negative (Negative) Ur Amphetamines Screen Negative (Negative) U Methamphetamines Scrn Negative (Negative) Ur MDMA Scrn (Ecstasy) Negative (Negative) U Benzodiazepines Scrn Positive H (Negative) Urine Cocaine Screen Negative (Negative) U Marijuana (THC) Screen Negative (Negative) Urine pH Normal (Normal) Urine Specific [place] Normal (Normal) Ethyl Alcohol < 10 ( - 10) mg/dL Ur Creatinine Normal (Normal) Point of Care Testing Test Results Negative Point of care testing: Point of Care Testing Test Results Negative MDM Narrative Medical decision making narrative: CC: Auditory and visual hallucinations Complicating co-morbidities: 48 hours after her last alcoholic drink with a history of alcohol use disorder, alcoholic cardiomyopathy, Data collected from: patient, mother Medical records reviewed: ER note from 09/20 with similar complaints is reviewed. Notes from [facility] from March of this year reviewed Differential considered: Delirium tremens, Ativan adverse reaction, acute psychosis, acute intoxication Exam documented above, pertinent findings include: 37-year-old woman who is increasingly anxious, she has a slightly wide-based gait mildly unsteady and slightly orthostatic complaining of visual and auditory hallucinations as well as worsening tactile hallucinations. CIWA score is 27. She does not have abdominal pain or significant abdominal distention at this time. No significant lower extremity edema Lab Test results independently reviewed as above. Pertinent findings: CBC low white blood cell count at 1.9. Platelets are at 98 H&H is reassuring Chemistries show Hypokalemia at 3.1, normal creatinine., Low magnesium at 1.2 mildly elevated transaminases (decreased from labs on September 20) Alcohol level is 0 Independently reviewed EKG: Sinus rhythm at a rate of 75. QTC at 4:51 a.m.. Nonspecific STT wave changes without obvious evidence of ischemia Consultations: Care is reviewed with admitting hospitalist, . He will admit the patient Treatments: IV phenobarbital, IV and p.o. potassium, IV magnesium, fluids with IV thiamine Discussion: 37-year-old woman who is 48 hours since her last drink with increasing auditory, visual and tactile hallucinations in his CIWA score at 29. She currently has been using Ativan and was concerned that she was having a toxic reaction to Ativan but I think in fact she is simply does not have enough Ativan and is developing delirium tremens. She has a low white blood cell count as well as low platelet count suggesting mild bone marrow suppression, there is no indication of infection at this time. She is not showing any indications of bleeding. She is not acutely encephalopathic. She is very interested in getting back to sobriety and quite cooperative. She is open to the idea of hospital admission for treatment of her acute alcohol withdrawal with delirium tremens and multiple electrolyte abnormalities. Discharge Plan Departure Patient Disposition: Admitted As Inpatient Clinical Impression: Delirium tremens, Hypomagnesemia, Acute hypokalemia, Elevated liver transaminase level Admit Date/Time: 09/23/23 00:57 Admit Provider: Michel Kraus
[2023-09-23] VITALS (97 sets, daily range): BP systolic 68–169; BP diastolic 46–93; PULSE 61–124; RESP 8–31; TEMP 36.9–37.3; O2SAT 62–100; BMI 22.5
[2023-09-23] MEDS: THIAMINE 100 MG in SODIUM CHLORIDE 0.9% 100 ML 404 MG IV (00:17)
[2023-09-23] MEDS: POTASSIUM CHLORIDE 20 MEQ TAB 40 MEQ PO (00:18)
[2023-09-23 00:30] LABS: Phosphorous 2.8 mg/dL (2.5-4.5)
[2023-09-23] MEDS: ONDANSETRON 4 MG/2 ML INJ IV (00:41)
[2023-09-23] MEDS: PHENobarbital 65 MG/ML VIAL 260 MG IV (00:41)
[2023-09-23] MEDS: MAGNESIUM SULFATE 2 GM/50 ML PIGGYBACK IV (00:51)
[2023-09-23 00:59] LABS: UR Morphine/Opiate cutoff 300 Negative (Negative); Ur Creatinine Normal (Normal); Ur Specific Gravity Normal (Normal); Urine Cocaine Negative (Negative); Urine Tetrahydrocannabinol Negative (Negative); Urine pH Normal (Normal)
[2023-09-23 01:00] LABS: Urine Amphetamines Negative (Negative); Urine Barbiturates Negative (Negative); Urine Benzodiazepines Positive (Negative); Urine MDMA Negative (Negative); Urine Methadone Negative (Negative); Urine Methamphetamines Negative (Negative); Urine Oxycodone Positive (Negative); Urine Phencyclidine Negative (Negative); Urine Tricyclic Antidepressant Negative (Negative)
--- NOTE | 2023-09-23 01:11 | P.HP_ITS ---
History of Present Illness History of Present Illness Chief complaint: hallucinations/detoxing Narrative: 37 y/o with a long-standing history of severe alcoholism, seen 2 days ago in the ED when she decided to quit drinking, presented again today with DT. 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 Leukocytopenia GERD (gastroesophageal reflux disease) Caloric malnutrition Anorexia nervosa Neuropathy Depression Anxiety Alcoholism in remission Ankle pain, right Alcoholism Anorexia Surgical History History of total hip arthroplasty Social History Smoking Status: Never smoker Meds Home Medications and Allergies Home Medications Medication Instructions Recorded Confirmed Type thiamine HCl (vitamin B1) 100 mg 100 mg PO DAILY #90 tabs 12/31/22 05/23/23 Rx tablet acetaminophen 500 mg tablet 1,000 mg PO Q6H PRN Pain (Scale 02/07/23 05/23/23 History (Tylenol Extra Strength) Score 1-3) cholecalciferol (vitamin D3) 25 2,000 unit PO DAILY #0 tabs 02/07/23 05/23/23 History mcg (1,000 unit) tablet (Vitamin D3) estradiol 0.025 mg/24 hr weekly 1 patch transdermal QWEEK 02/07/23 05/23/23 History transdermal patch (Climara) mecobalamin (vitamin B12) 500 mcg 500 mcg PO DAILY 02/07/23 05/23/23 History chewable tablet ondansetron HCl 4 mg tablet 4 mg PO BID PRN Nausea And Vomiting 02/07/23 05/23/23 History oxycodone 5 mg tablet 5 mg PO Q6H PRN pain #14 tabs 02/07/23 05/23/23 Rx progesterone micronized 200 mg 200 mg PO BEDTIME 02/07/23 05/23/23 History capsule olanzapine 2.5 mg tablet 2.5 mg PO DAILY 02/18/23 05/23/23 History methocarbamol 1,000 mg tablet 1,000 mg PO QID #120 tabs 03/20/23 05/23/23 Rx pantoprazole 40 mg tablet,delayed 40 mg PO BID #180 tabs 04/03/23 05/23/23 Rx release acamprosate 333 mg tablet,delayed See Rx Instructions .Route 04/10/23 05/23/23 Rx release .COMPLEX #180 tabs spironolactone 50 mg tablet 50 mg PO DAILY #90 tabs 04/10/23 05/23/23 Rx furosemide 40 mg tablet 40 mg PO BID #120 tabs 04/17/23 05/23/23 Rx pregabalin 75 mg capsule 75 mg PO DAILY 04/17/23 05/23/23 History olanzapine 7.5 mg tablet 7.5 mg PO DAILY #90 tabs 05/05/23 05/23/23 Rx duloxetine 60 mg capsule,delayed 60 mg PO DAILY #90 caps 06/05/23 Rx release sprinkle alendronate 70 mg tablet See Rx Instructions .Route 07/07/23 Rx .COMPLEX #12 tabs sacubitril 24 mg-valsartan 26 mg 1 tab PO BID #180 tabs 07/28/23 Rx tablet (Entresto) lorazepam 1 mg tablet (Ativan) 1 mg PO TID PRN alcohol withdrawal 09/20/23 Rx #12 tabs magnesium chloride 71.5 mg 71.5 mg PO BID #30 tabs 09/20/23 Rx (magnesium chloride) tablet,delayed release (Slow-Mag) magnesium chloride 71.5 mg 71.5 mg PO BID #30 tabs 09/20/23 Rx (magnesium chloride) tablet,delayed release (Slow-Mag) ondansetron 4 mg disintegrating 4 mg PO Q6H PRN nausea and 09/20/23 Rx tablet vomiting #14 tabs ondansetron 4 mg disintegrating 4 mg PO Q6H PRN nausea and 09/20/23 Rx tablet vomiting #14 tabs Allergies Allergy/AdvReac Type Severity Reaction Status Date / Time gabapentin AdvReac Intermediate Mental Verified 09/22/23 21:27 status changes Review of Systems Review of Systems Narrative: patient boarding in ED, unavailable for ROS Exam Vital Signs (past 8 hours): - 09/22/23 21:27 09/22/23 23:32 Temperature 97.1 F L 97.4 F L Pulse Rate 84 Respiratory Rate 18 Blood Pressure 118/56 L Pulse Oximetry 100 Oxygen Delivery Method Room Air Oxygen Delivery Method Room Air Narrative Exam Narrative: boarding in ED, unavailable for tele visit Objective Labs 09/22/23 21:45 09/22/23 21:45 Labs: Laboratory Results - last 24 hr 09/22/23 09/23/23 21:45 00:06 WBC 1.9 L* RBC 4.18 Hgb 13.3 Hct 38.7 MCV 92.6 MCH 31.9 MCHC 34.5 RDW 16.2 H Plt Count 98 L Neut % (Auto) Not Reportable Lymph % (Auto) Not Reportable [place] % (Auto) Not Reportable Eos % (Auto) Not Reportable Baso % (Auto) Not Reportable Lymph # (Auto) Not Reportable [place] # (Auto) Not Reportable Baso # (Auto) Not Reportable Total Counted 100 Seg Neutrophils % 50.0 Band Neutrophils % 1.0 L Lymphocytes % (Manual) 41.0 Monocytes % (Manual) 7.0 Basophils % (Manual) 1.0 Neutrophils # (Manual) 969 L RBC Morphology See below Anisocytosis 2+ H Microcytosis 1+ H Macrocytosis 1+ H Tear Drop Cells 1+ H Sodium 136 L Potassium 3.1 L Chloride 94 L Carbon Dioxide 33 H BUN 4 L Creatinine 0.82 Estimated GFR > 60 BUN/Creatinine Ratio 4.9 L Glucose 72 Calcium 9.9 Phosphorus 2.8 Magnesium 1.2 L Total Bilirubin 0.8 AST 271 H ALT 123 H Alkaline Phosphatase 157 H Total Protein 7.5 Albumin 4.1 Globulin 3.4 Albumin/Globulin Ratio 1.2 TSH 6.27 H D Free T4 1.45 Salicylates < 1.0 U Opiates 300ng/mL cut Negative Ur Oxycodone Screen Positive H Urine Methadone Screen Negative Acetaminophen < 10 Ur Barbiturates Screen Negative U Tricyclic Antidepress Negative Ur Phencyclidine Scrn Negative Ur Amphetamines Screen Negative U Methamphetamines Scrn Negative Ur MDMA Scrn (Ecstasy) Negative U Benzodiazepines Scrn Positive H Urine Cocaine Screen Negative U Marijuana (THC) Screen Negative Urine pH Normal Urine Specific [place] Normal Ethyl Alcohol < 10 Ur Creatinine Normal Assessment & Plan Assessment and plan (1) Delirium tremens: Status: Acute Plan: Visual and auditory hallucinations. CIWA protocol. (2) Alcoholic cardiomyopathy: Status: Acute Plan: EF 25%, continue entresto, aldactone. Given fluids in ED, hold am lasix, poor oral intake (3) Acute hypokalemia: Status: Acute Plan: monitored, replacing (4) Depression: Qualifiers: Depression Type: unspecified Qualified Code(s): F32.9 - Major depressive disorder, single episode, unspecified Status: Acute (5) Anxiety: Status: Acute (6) GERD (gastroesophageal reflux disease): Qualifiers: Esophagitis presence: esophagitis presence not specified Qualified Code(s): K21.9 - Gastro-esophageal reflux disease without esophagitis Status: Acute Plan: PPI (7) Pancytopenia: Status: Acute Plan: stable, chronic (8) Hypomagnesemia: Status: Acute Plan: monitored, replacing
[2023-09-23] MEDS: LACTATED RINGERS 1,000 ML 1000 ML IV (01:12)
[2023-09-23] MEDS: POTASSIUM CHLORIDE IN WATER 10 MEQ/100 ML PIGGYBACK 100 MEQ IV ×2 (01:17→02:22)
[2023-09-23] MEDS: LORazepam 2 MG/ML INJ IV (02:32)
[2023-09-23] MEDS: LORazepam 1 MG TABLET PO ×2 (03:35→06:06)
[2023-09-23 06:32] LABS: Alanine Aminotransferase 131 IU/L (<35); Albumin 4.2 g/dL (3.5-5.0); Albumin Globulin Ratio 1.3 (1.0-2.8); Alkaline Phosphatase 171 U/L (38-126); BUN Creatinine Ratio 5.6 (6-22); Bilirubin Total 0.9 mg/dL (0.2-1.3); Blood Urea Nitrogen 4 mg/dL (7-17); Calcium 9.7 mg/dL (8.4-10.2); Carbon Dioxide 32 mmol/L (22-32); Chloride 96 mmol/L (98-107); Estimated Glomerular Filt Rate > 60 mL/min (>60); Globulin 3.3 g/dL (1.7-4.1); Glucose 100 mg/dL (70-100); HEMOLYSIS 15 (0-50); Magnesium 1.9 mg/dL (1.6-2.3); Potassium 3.6 mmol/L (3.4-5.1); Sodium 133 mmol/L (137-145); Total Protein 7.5 g/dL (6.3-8.2)
[2023-09-23 06:33] LABS: Add Manual Diff / Slide Review NO; Basophils Absolute Auto 0 /uL (0-100); Basophils Percent Auto 0.6 % (0-2); Eosinophils Absolute Auto 0 /uL (0-450); Hemoglobin 12.9 g/dL (12.0-16.0); Lymphocytes Absolute Auto 500 /uL (1100-4500); Lymphocytes Percent Auto 31.7 % (25-40); Mean Corpuscular Hemoglobin 31.7 PG (26-34); Mean Corpuscular Volume 93.2 fL (80-100); Monocytes Absolute Auto 100 /uL (0-900); Monocytes Percent Auto 8.5 % (3-14); Neutrophils Absolute Auto 1000 /uL (1500-7000); Neutrophils Percent Auto 58.2 % (50-75); Platelet Count 83 X10^3/uL (150-400); Red Blood Cell Count 4.08 X10^6/uL (4.0-5.2); Red Cell Distribution Width 16.3 % (11.6-14.8)
[2023-09-23 06:35] LABS: White Blood Cell Count 1.7 X10^3/uL (4.5-11.0)
[2023-09-23 06:41] LABS: NT-proBNP (BNP-Adult 18+) 238 pg/mL (<125)
[2023-09-23] MEDS: dexmedeTOMIDine in 0.9 % NaCL 400 MCG/100 ML PLAST..BAG IV (08:05)
[2023-09-23] MEDS: THIAMINE 100 MG TABLET PO (08:10)
[2023-09-23] MEDS: PREGABALIN 75 MG CAPSULE PO (08:10)
[2023-09-23] MEDS: MULTIVITAMIN 1 TABLET 1 TAB PO (08:10)
[2023-09-23] MEDS: FOLIC ACID 1 MG TABLET PO (08:11)
[2023-09-23] MEDS: PANTOPRAZOLE 40 MG VIAL IV (08:11)
[2023-09-23] MEDS: SPIRONOLACTONE 25 MG TABLET 50 MG PO (08:11)
--- NOTE | 2023-09-23 08:11 | PM.HP.1 ---
History of Present Illness History of Present Illness Chief complaint: hallucinations/detoxing Narrative: The patient is a 37-year-old female with history of alcohol use disorder who presented to the emergency department 2 days ago and then again last night for alcohol cessation related issues. She has a history of drinking 3-5 shots of alcohol a day. Her last drink was on October 22. She presented with withdrawal symptoms including hallucinations last night. She denies any history of withdrawal seizures. She also does note some left knee pain for the last several days to week. She denies ingestion of other medication and notes that she uses alcohol for her severe anxiety and agoraphobia. She also notes a history of heart failure but denies any dyspnea, or leg edema. She was initially treated with a CIWA protocol in the emergency department. Volume is being substituted for Ativan on the protocol due to shortage issues. She was found to be hypokalemic in the emergency department. She was also leukopenic. A urine tox screen was positive for benzodiazepines. FORMERLY [facility], [facility] Medical History (Updated 09/23/23 @ 01:19 by Michel De La Cruz MD) Pancytopenia Tricuspid regurgitation Mitral regurgitation HFrEF (heart failure with reduced ejection fraction) Left ventricular hypokinesis Hip pain, bilateral 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 Leukocytopenia GERD (gastroesophageal reflux disease) Caloric malnutrition Anorexia nervosa Neuropathy Depression Anxiety Alcoholism in remission Ankle pain, right Alcoholism Anorexia Surgical History History of total hip arthroplasty Social History Smoking Status: Never smoker Meds Home Medications and Allergies Home Medications Medication Instructions Recorded Confirmed Type thiamine HCl (vitamin B1) 100 mg 100 mg PO DAILY #90 tabs 12/31/22 05/23/23 Rx tablet acetaminophen 500 mg tablet 1,000 mg PO Q6H PRN Pain (Scale 02/07/23 05/23/23 History (Tylenol Extra Strength) Score 1-3) cholecalciferol (vitamin D3) 25 2,000 unit PO DAILY #0 tabs 02/07/23 05/23/23 History mcg (1,000 unit) tablet (Vitamin D3) estradiol 0.025 mg/24 hr weekly 1 patch transdermal QWEEK 02/07/23 05/23/23 History transdermal patch (Climara) mecobalamin (vitamin B12) 500 mcg 500 mcg PO DAILY 02/07/23 05/23/23 History chewable tablet ondansetron HCl 4 mg tablet 4 mg PO BID PRN Nausea And Vomiting 02/07/23 05/23/23 History oxycodone 5 mg tablet 5 mg PO Q6H PRN pain #14 tabs 02/07/23 05/23/23 Rx progesterone micronized 200 mg 200 mg PO BEDTIME 02/07/23 05/23/23 History capsule olanzapine 2.5 mg tablet 2.5 mg PO DAILY 02/18/23 05/23/23 History methocarbamol 1,000 mg tablet 1,000 mg PO QID #120 tabs 03/20/23 05/23/23 Rx pantoprazole 40 mg tablet,delayed 40 mg PO BID #180 tabs 04/03/23 05/23/23 Rx release acamprosate 333 mg tablet,delayed See Rx Instructions .Route 04/10/23 05/23/23 Rx release .COMPLEX #180 tabs spironolactone 50 mg tablet 50 mg PO DAILY #90 tabs 04/10/23 05/23/23 Rx furosemide 40 mg tablet 40 mg PO BID #120 tabs 04/17/23 05/23/23 Rx pregabalin 75 mg capsule 75 mg PO DAILY 04/17/23 05/23/23 History olanzapine 7.5 mg tablet 7.5 mg PO DAILY #90 tabs 05/05/23 05/23/23 Rx duloxetine 60 mg capsule,delayed 60 mg PO DAILY #90 caps 06/05/23 Rx release sprinkle alendronate 70 mg tablet See Rx Instructions .Route 07/07/23 Rx .COMPLEX #12 tabs sacubitril 24 mg-valsartan 26 mg 1 tab PO BID #180 tabs 07/28/23 Rx tablet (Entresto) lorazepam 1 mg tablet (Ativan) 1 mg PO TID PRN alcohol withdrawal 09/20/23 Rx #12 tabs magnesium chloride 71.5 mg 71.5 mg PO BID #30 tabs 09/20/23 Rx (magnesium chloride) tablet,delayed release (Slow-Mag) magnesium chloride 71.5 mg 71.5 mg PO BID #30 tabs 09/20/23 Rx (magnesium chloride) tablet,delayed release (Slow-Mag) ondansetron 4 mg disintegrating 4 mg PO Q6H PRN nausea and 09/20/23 Rx tablet vomiting #14 tabs ondansetron 4 mg disintegrating 4 mg PO Q6H PRN nausea and 09/20/23 Rx tablet vomiting #14 tabs Allergies Allergy/AdvReac Type Severity Reaction Status Date / Time gabapentin AdvReac Intermediate Mental Verified 09/22/23 21:27 status changes Review of Systems Review of Systems Narrative: All else reviewed and otherwise negative. Exam Vital Signs (past 8 hours): - 09/23/23 01:16 09/23/23 01:30 09/23/23 01:30 Temperature Pulse Rate 83 79 Respiratory Rate 12 16 Blood Pressure 99/61 Blood Pressure [Left Arm] Pulse Oximetry 99 99 Oxygen Delivery Method 09/23/23 02:00 09/23/23 02:00 09/23/23 02:30 Temperature Pulse Rate 75 Respiratory Rate 14 Blood Pressure 100/59 L 97/56 L Blood Pressure [Left Arm] Pulse Oximetry 100 Oxygen Delivery Method Room Air 09/23/23 02:30 09/23/23 03:00 09/23/23 03:00 Temperature Pulse Rate 73 77 Respiratory Rate 10 L 12 Blood Pressure 109/60 Blood Pressure [Left Arm] Pulse Oximetry 98 100 Oxygen Delivery Method 09/23/23 03:01 09/23/23 03:01 09/23/23 03:30 Temperature Pulse Rate 80 86 Respiratory Rate 16 15 Blood Pressure 112/57 L Blood Pressure [Left Arm] Pulse Oximetry 100 100 Oxygen Delivery Method 09/23/23 04:00 09/23/23 04:19 09/23/23 04:19 Temperature Pulse Rate 84 81 Respiratory Rate 9 L 9 L Blood Pressure 103/62 Blood Pressure [Left Arm] Pulse Oximetry 99 99 Oxygen Delivery Method 09/23/23 04:30 09/23/23 04:30 09/23/23 05:00 Temperature Pulse Rate 91 H Respiratory Rate 10 L Blood Pressure 110/56 L 113/76 Blood Pressure [Left Arm] Pulse Oximetry 100 Oxygen Delivery Method Room Air 09/23/23 05:00 09/23/23 05:30 09/23/23 05:31 Temperature Pulse Rate 84 91 H 92 H Respiratory Rate 20 17 16 Blood Pressure Blood Pressure [Left Arm] Pulse Oximetry 100 99 100 Oxygen Delivery Method 09/23/23 05:31 09/23/23 05:55 09/23/23 05:55 Temperature Pulse Rate 86 Respiratory Rate 22 Blood Pressure 102/74 101/68 Blood Pressure [Left Arm] Pulse Oximetry 99 Oxygen Delivery Method 09/23/23 06:00 09/23/23 06:10 09/23/23 06:10 Temperature 98.5 F Pulse Rate 110 H 85 Respiratory Rate 31 H 16 Blood Pressure 110/56 L Blood Pressure [Left Arm] Pulse Oximetry 98 99 Oxygen Delivery Method 09/23/23 06:24 09/23/23 06:30 09/23/23 06:30 Temperature Pulse Rate 93 H 95 H Respiratory Rate 14 22 Blood Pressure 115/70 Blood Pressure [Left Arm] 110/56 L Pulse Oximetry 98 99 Oxygen Delivery Method Room Air 09/23/23 07:00 09/23/23 07:02 09/23/23 07:02 Temperature Pulse Rate 106 H 96 H Respiratory Rate 24 9 L Blood Pressure 124/58 L Blood Pressure [Left Arm] Pulse Oximetry 98 98 Oxygen Delivery Method Room Air 09/23/23 07:30 09/23/23 07:30 Temperature Pulse Rate 93 H Respiratory Rate 9 L Blood Pressure 106/69 Blood Pressure [Left Arm] Pulse Oximetry 97 Oxygen Delivery Method Oxygen Delivery Method Room Air Narrative Exam Narrative: Alert and oriented times 2. The patient is slightly anxious. Her speech is fluent. She does state that she is hallucinating and is somewhat tremulous. HEENT is atraumatic, oropharynx is unremarkable. Neck is supple. Midline trachea. Lungs are clear, normal rate and effort. Heart is regular, no murmur. Abdomen is soft, nondistended. Legs are free of edema. She is good peripheral pulses. Joints are unremarkable, and without deformity including the left knee. Skin is free of rash or lesions. Judgment appears to be abnormal. Thought content appears to be abnormal. Objective Labs 09/23/23 05:55 09/23/23 05:55 Labs: Laboratory Results - last 24 hr 09/22/23 09/23/23 09/23/23 21:45 00:06 05:55 WBC 1.9 L* 1.7 L* RBC 4.18 4.08 Hgb 13.3 12.9 Hct 38.7 38.0 MCV 92.6 93.2 MCH 31.9 31.7 MCHC 34.5 34.0 RDW 16.2 H 16.3 H Plt Count 98 L 83 L Neut % (Auto) Not Reportable 58.2 Lymph % (Auto) Not Reportable 31.7 [place] % (Auto) Not Reportable 8.5 Eos % (Auto) Not Reportable 1.0 L Baso % (Auto) Not Reportable 0.6 Neut # (Auto) 1000 L Lymph # (Auto) Not Reportable 500 L [place] # (Auto) Not Reportable 100 Eos # (Auto) 0 Baso # (Auto) Not Reportable 0 Total Counted 100 Seg Neutrophils % 50.0 Band Neutrophils % 1.0 L Lymphocytes % (Manual) 41.0 Monocytes % (Manual) 7.0 Basophils % (Manual) 1.0 Neutrophils # (Manual) 969 L RBC Morphology See below Anisocytosis 2+ H Microcytosis 1+ H Macrocytosis 1+ H Tear Drop Cells 1+ H Sodium 136 L 133 L Potassium 3.1 L 3.6 Chloride 94 L 96 L Carbon Dioxide 33 H 32 BUN 4 L 4 L Creatinine 0.82 0.72 Estimated GFR > 60 > 60 BUN/Creatinine Ratio 4.9 L 5.6 L Glucose 72 100 Calcium 9.9 9.7 Phosphorus 2.8 Magnesium 1.2 L 1.9 Total Bilirubin 0.8 0.9 AST 271 H ALT 123 H 131 H Alkaline Phosphatase 157 H 171 H NT-Pro-B Natriuret Pep 238 H Total Protein 7.5 7.5 Albumin 4.1 4.2 Globulin 3.4 3.3 Albumin/Globulin Ratio 1.2 1.3 TSH 6.27 H D Free T4 1.45 Salicylates < 1.0 U Opiates 300ng/mL cut Negative Ur Oxycodone Screen Positive H Urine Methadone Screen Negative Acetaminophen < 10 Ur Barbiturates Screen Negative U Tricyclic Antidepress Negative Ur Phencyclidine Scrn Negative Ur Amphetamines Screen Negative U Methamphetamines Scrn Negative Ur MDMA Scrn (Ecstasy) Negative U Benzodiazepines Scrn Positive H Urine Cocaine Screen Negative U Marijuana (THC) Screen Negative Urine pH Normal Urine Specific [place] Normal Ethyl Alcohol < 10 Ur Creatinine Normal Assessment & Plan Assessment & Plan narrative: 1. Alcohol use disorder with acute alcohol withdrawal syndrome, present on admission and active. 2. Acute toxic encephalopathy related to withdrawal, present on admission and active. 3. Acute hypokalemia, present on admission and active. 4. Hypomagnesemia, present on admission and active. 5. Acute leukopenia, present on admission and active. 6. 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 7. Chronic depression anxiety, present on admission and active. 8. Chronic GERD and esophagitis, present on admission and stable. Plan: -alcohol withdrawal will be treated with a CIWA protocol. She also be treated with thiamine and IV fluids. -potassium and magnesium will be repleted and monitored. -anticipated transition to a Librium taper. -we will monitor mental status. -we will continue chronic medications for her cardiomyopathy. -we will monitor her pancytopenia which is likely related to alcohol use disorder. Time Spent With Patient Time with patient: 30 to 49 minutes with 50% spent counseling/coordinating care Quality MIPS - Admit I confirm the patient?s Advance Care Plan is present, Code status is documented, Surrogate decision maker is in patient?s record [If Yes, STOP here]: Yes
[2023-09-23] MEDS: diazePAM 10 MG/2 ML SYRINGE IV ×5 (08:23→18:03)
[2023-09-23 09:03] LABS: MRSA (Nasal) PCR Not Detected (Not Detect)
[2023-09-23] MEDS: PANTOPRAZOLE DR 40 MG TABLET PO (09:45)
[2023-09-23] MEDS: SODIUM CHLORIDE 0.9% 1,000 ML 250 ML IV (11:48)
--- NOTE | 2023-09-23 13:16 | PC.NURSE ---
Pt admitted from ED at 0745, initially able to follow commands and cooperative, but then became confused, increasing agitated, resistive to staff - requiring 3 staff members to keep patient safe. Pt repeatedly attempted to remove medical equipment, removing BP cuff several times, had increasing, severe hallucinations. During this time, RN titrated precedex per protocol and administered IV Valium per CIWA protocol. On reassessment, pt steady RR and VS, CIWA <8, pt appeared to be resting comfortably. Around 1145, RN measured blood pressure and noted MAP of 59. RN assessed BP two more times, with MAP <60. RN stopped precedex immediately with pt's low BP. RN notified provider that pt was hypotensive, and provider ordered Bolus of 250ml. RN gave bolus of 250ml, RN and provider noted pt to be bradypneic and sedated. Pt still hypotensive after first bolus. Provider ordered RN to give 2nd bolus of 250ml, with RN stimulating pt. Shortly afterward, pt BP recovered to MAP >65 and pt became awake and lethargic. RN reassessed patient and pt oriented x2 (similar to am assessment), following commands, answering most questions appropriately.
[2023-09-23 17:58] LABS: BUN Creatinine Ratio 6.3 (6-22); Blood Urea Nitrogen 5 mg/dL (7-17); Carbon Dioxide 31 mmol/L (22-32); Chloride 98 mmol/L (98-107); Estimated Glomerular Filt Rate > 60 mL/min (>60); Glucose 131 mg/dL (70-100); HEMOLYSIS < 15 (0-50); Magnesium 1.8 mg/dL (1.6-2.3); Potassium 3.7 mmol/L (3.4-5.1); Sodium 134 mmol/L (137-145)
[2023-09-24] VITALS (39 sets, daily range): BP systolic 97–130; BP diastolic 59–88; PULSE 92–135; RESP 5–21; TEMP 36.3–36.4; O2SAT 94–100
[2023-09-24] MEDS: PANTOPRAZOLE DR 40 MG TABLET PO (05:40)
[2023-09-24] MEDS: HYDROCODONE/ACET 5/325 TABLET 1 TAB PO (05:42)
[2023-09-24] MEDS: diazePAM 10 MG/2 ML SYRINGE IV ×2 (09:07→13:05)
[2023-09-24] MEDS: MULTIVITAMIN 1 TABLET 1 TAB PO (09:08)
[2023-09-24] MEDS: FOLIC ACID 1 MG TABLET PO (09:08)
[2023-09-24] MEDS: THIAMINE 100 MG TABLET PO (09:08)
[2023-09-24] MEDS: DULOXETINE 30 MG CAPSULE 60 MG PO (09:08)
[2023-09-24] MEDS: SPIRONOLACTONE 25 MG TABLET 50 MG PO (09:08)
[2023-09-24] MEDS: PREGABALIN 75 MG CAPSULE PO (09:09)
[2023-09-24 09:18] LABS: Add Manual Diff / Slide Review NO; Basophils Absolute Auto 0 /uL (0-100); Basophils Percent Auto 0.5 % (0-2); Eosinophils Absolute Auto 0 /uL (0-450); Eosinophils Percent Auto 1.5 % (2-4); Hematocrit 35.9 % (36-46); Hemoglobin 12.4 g/dL (12.0-16.0); Lymphocytes Absolute Auto 500 /uL (1100-4500); Mean Corpuscular HGB Conc 34.4 % (30-36); Mean Corpuscular Hemoglobin 32.2 PG (26-34); Mean Corpuscular Volume 93.6 fL (80-100); Monocytes Absolute Auto 200 /uL (0-900); Monocytes Percent Auto 9.9 % (3-14); Neutrophils Absolute Auto 1400 /uL (1500-7000); Neutrophils Percent Auto 64.1 % (50-75); Platelet Count 64 X10^3/uL (150-400); Red Blood Cell Count 3.84 X10^6/uL (4.0-5.2); Red Cell Distribution Width 16.1 % (11.6-14.8); White Blood Cell Count 2.2 X10^3/uL (4.5-11.0)
--- NOTE | 2023-09-24 09:20 | PM.PN.1 ---
Subjective Subjective Interval history: She is more awake, is tachycardic and has a fine tremor. She notes intermittent hallucinations but is much improved over yesterday. She is off the Precedex drip. She is receiving Valium as needed for CIWA protocol. She notes left knee pain and right great toe pain. Her left knee has acute on chronic pain and it is unclear if she would any trauma to the knee. She had an ingrown toenail on the right tell but this is fairly unremarkable today. No overnight events. Exam Vital Signs (past 8 hours): - 09/24/23 02:00 09/24/23 02:00 09/24/23 02:30 Temperature Pulse Rate 113 H 119 H Respiratory Rate 8 L 7 L Blood Pressure 126/73 Pulse Oximetry 97 98 Oxygen Delivery Method Oxygen Flow Rate 09/24/23 03:00 09/24/23 03:00 09/24/23 03:30 Temperature Pulse Rate 117 H 113 H Respiratory Rate 8 L 6 L Blood Pressure 114/68 Pulse Oximetry 98 98 Oxygen Delivery Method Oxygen Flow Rate 09/24/23 04:00 09/24/23 04:00 09/24/23 04:00 Temperature 97.6 F Pulse Rate 99 H Respiratory Rate 7 L Blood Pressure 123/72 Pulse Oximetry 100 Oxygen Delivery Method Oxygen Flow Rate 09/24/23 04:00 09/24/23 05:00 09/24/23 05:00 Temperature Pulse Rate 100 H Respiratory Rate 6 L Blood Pressure 123/70 Pulse Oximetry 100 Oxygen Delivery Method Simple Mask Oxygen Flow Rate 09/24/23 06:00 09/24/23 06:00 09/24/23 06:30 Temperature Pulse Rate 115 H 119 H Respiratory Rate 8 L 7 L Blood Pressure 107/73 Pulse Oximetry 96 94 Oxygen Delivery Method Oxygen Flow Rate 0 09/24/23 07:00 09/24/23 07:00 09/24/23 07:30 Temperature Pulse Rate 113 H 97 H Respiratory Rate 6 L 8 L Blood Pressure 114/62 Pulse Oximetry 95 96 Oxygen Delivery Method Oxygen Flow Rate 09/24/23 07:56 09/24/23 07:56 09/24/23 08:00 Temperature Pulse Rate 124 H 127 H Respiratory Rate 10 L 17 Blood Pressure 130/88 Pulse Oximetry 97 96 Oxygen Delivery Method Oxygen Flow Rate 09/24/23 08:01 09/24/23 08:01 09/24/23 08:30 Temperature Pulse Rate 132 H 127 H Respiratory Rate 13 12 Blood Pressure 112/78 Pulse Oximetry 95 95 Oxygen Delivery Method Oxygen Flow Rate Oxygen Delivery Method Simple Mask Oxygen Flow Rate 0 Narrative Exam Narrative: NAD, fluent speech. Alert and oriented to person, place and time. Pupils are symmetric and EOMI. Lungs are clear, normal rate and effort. Heart is tachycardic, without murmur. Abdomen is soft, nondistended. Extremities are free of edema. Good peripheral pulses. Left knee is not swollen, warm or red. It is somewhat tender to palpation underneath and anterior to the patella. Objective Labs 09/23/23 05:55 09/23/23 17:40 Labs: Laboratory Results - last 24 hr 09/23/23 09/23/23 05:55 17:40 Sodium 134 L Potassium 3.7 Chloride 98 Carbon Dioxide 31 BUN 5 L Creatinine 0.79 Estimated GFR > 60 BUN/Creatinine Ratio 6.3 Glucose 131 H Calcium 10.0 Magnesium 1.8 AST TNP [facility] Medical History (Updated 09/23/23 @ 01:19 by Michel De La Cruz MD) Pancytopenia Tricuspid regurgitation Mitral regurgitation HFrEF (heart failure with reduced ejection fraction) Left ventricular hypokinesis Hip pain, bilateral 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 Leukocytopenia GERD (gastroesophageal reflux disease) Caloric malnutrition Anorexia nervosa Neuropathy Depression Anxiety Alcoholism in remission Ankle pain, right Alcoholism Anorexia Surgical History History of total hip arthroplasty Social History household members: none Smoking Status: Current some day smoker Assessment & Plan Assessment & Plan narrative: 1. Alcohol use disorder with acute alcohol withdrawal syndrome, present on admission and active. This is improving. 2. Acute toxic encephalopathy related to withdrawal, present on admission and active. This is improving. 3. Acute hypokalemia, present on admission and improving. Labs pending. 4. Hypomagnesemia, present on admission and improved. 5. Acute leukopenia, present on admission and active. Labs pending. 6. 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 She remains euvolemic, no dyspnea or edema. 7. Chronic depression anxiety, present on admission and active. 8. Chronic GERD and esophagitis, present on admission and stable. Plan: -alcohol withdrawal will be treated with a CIWA protocol. Anticipate the addition of Librium either this afternoon or tomorrow morning as her CIWA scores decrease. -potassium and magnesium will be repleted and monitored. -we will continue chronic medications for her cardiomyopathy. She will start her on Jardiance today and Entresto. -we will monitor her pancytopenia which is likely related to alcohol use disorder. Her mother was at the bedside, she inquires about rehabilitation. The patient has been in rehab in the past. I replied that we would have to see where she stands she becomes more mentally clear and future plans and her idea of next steps. Time Spent With Patient Time with patient: 30 to 49 minutes with 50% spent counseling/coordinating care Quality VTE Deep Vein Thrombosis/Pulmonary Embolism Present on Admission: No
[2023-09-24 09:24] LABS: Alanine Aminotransferase 123 IU/L (<35); Albumin 3.9 g/dL (3.5-5.0); Albumin Globulin Ratio 1.2 (1.0-2.8); Alkaline Phosphatase 138 U/L (38-126); BUN Creatinine Ratio 7.5 (6-22); Bilirubin Total 0.6 mg/dL (0.2-1.3); Blood Urea Nitrogen 5 mg/dL (7-17); Calcium 9.8 mg/dL (8.4-10.2); Carbon Dioxide 27 mmol/L (22-32); Chloride 97 mmol/L (98-107); Estimated Glomerular Filt Rate > 60 mL/min (>60); Globulin 3.2 g/dL (1.7-4.1); Glucose 125 mg/dL (70-100); HEMOLYSIS < 15 (0-50); Potassium 3.6 mmol/L (3.4-5.1); Sodium 133 mmol/L (137-145); Total Protein 7.1 g/dL (6.3-8.2)
[2023-09-24] MEDS: FUROSEMIDE 40 MG TABLET PO ×2 (09:47→20:48)
[2023-09-24] MEDS: EMPAGLIFLOZIN 10 MG 10 EACH PO (09:47)
[2023-09-24] MEDS: OLANZapine 2.5 MG TABLET PO (09:47)
[2023-09-24] MEDS: MAGNESIUM CHLORIDE 64 MG TABLET 68 MG PO (09:48)
--- NOTE | 2023-09-24 10:35 | DI.RAD.S_ITS ---
PROCEDURE: XR KNEE LT 3V INDICATIONS: pain TECHNIQUE: 3 views of the knee were acquired. COMPARISON: [facility], CR, XR KNEE 3 VIEWS LEFT, 02/06/2021, 11:54. [facility], CR, XR KNEE LT 3V, 03/24/2018, 12:06. FINDINGS: Bones: Extensive mixed lytic and sclerotic changes throughout distal femur extending to both medial and lateral femoral condyle with deformity involving weight-bearing portions of femoral condyles consistent with interval progression of avascular necrosis and osteochondral injuries involving distal femur. No acute fracture or dislocation. No patellar subluxation. No other area of suspicious bony lesions. Moderate tricompartmental osteoarthritis is seen more notably in medial and lateral femoral tibial compartments. Soft tissues: Moderate suprapatellar joint effusion. No suspicious soft tissue calcifications. IMPRESSION: Changes in left distal femur most consistent with chronic avascular necrosis and osteochondral injuries. No acute fracture or dislocation. Moderate tricompartmental osteoarthritis and moderate joint effusion. Dictated by: Berny Lane M.D. on 09/24/2023 at 12:24 Approved by: Berny Lane M.D. on 09/24/2023 at 12:27
--- NOTE | 2023-09-24 11:42 | CM.DANOTE ---
DCP: Case received, EMR reviewed. Unable to currently converse with patient, due to her condition, patient here for alcohol withdrawals. Spoke to patient's mother, Andreia, outside of patient's room, she has been at bedside. Introduced self and role. Was able to complete DCP assessment based upon information currently available. Patient is a 37 year old female who admitted yesterday morning to the care of the hospitalist team. PCP: Dr. Herrera. Payer: confirmed: [facility] Healthy Options/Medicaid. Patient came to the hospital via private vehicle secondary to having symptoms of alcohol withdrawals, hearing voices, seeing things, spiders crawling on her skin. Notes indicate that patient had recently stopped drinking alcohol on or around the 20 of September, she had wanted to try to stop drinking on her own. Patient has history of cirrhosis, alcohol use disorder, CHF, and according to mother, also, vascular necrosis. Patient was having symptoms of delirium tremens. Patient's CIWA at 29, upon admission. Notes also indicate that patient is interested in getting back to sobriety. Patient's toxicology screen was positive for benzodiazepines, patient takes Lorazepam for withdrawals. Patient was diagnosed with alcohol use disorder with acute alcohol withdrawal syndrome, acute toxic encephalopathy related to withdrawal, hypokalemia, hypomagnesemia. Patient also has history of chronic depression and anxiety. Patient has been sleeping off and on. Nurse notes from yesterday indicated that patient had been agitated, attempting to get out of bed. Met with patient's mother, Andreia Schofield, who has been at bedside. Spoke to her outside the room to get more history on patient. Confirmed that patient resides in [place], she resides alone in [facility] apartments here in [place]. Also, confirmed that her primary care doctor is Dr. Herrera. Her mother indicated that patient has alcohol history, but had been going to [employer]. She has a sponsor as well. Patient also has history of eating disorder. She had been at [facility] about a year ago, and ended up at the [facility], for those with eating disorders last December. She indicated that patient had been down to 80 pounds at one time. She indicated that patient has history of hip pain, as well as vascular necrosis. She does not have any friends, but relies on her parents. She indicated that patient has made comments, if it weren't for the both of you, I don't think that I would want to live. She denies that patient has attempt suicide, but indicated that she is in a very deep depression. Asked her mother if patient has been under any psychiatric care, or referred from her primary care provider, Dr. Herrera. Indicated, she has not, does not think that her primary care provider is aware that patient has been having these problems. Discussed inpatient rehab potential. Mother indicated, she feels that she needs to be in a place that can address her depression, not just her alcohol. Stated, she had been to a facility before, and just made her more depressed. Let her know that when patient is more awake and alert, can visit some of the inpatient potentials, such as [facility] for those with dual diagnosis. Would have to see if patient would consent to go, and if there are any beds. Patient may also benefit from [facility]ACKER consult for substance abuse assessment. P: DCP to continue to follow case closely, and will consult with [facility]ARD STACKER for consult. Norma West RN/[employer] Leak Tester Discharge Planning/Care Management CM Discharge Assessment Start: 09/24/23 11:18 Freq: Status: Active Protocol: Document 09/24/23 11:18 (Rec: 09/24/23 11:23 [id number]) Discharge Planning Assessment Assigned [employer] Developer Norma West RN/[employer] Leak Tester Advance Directives? No History Provided By Patient,Medical Record Prior Living Arrangements Apartment/Condo Household Members none Type of transporation used prior to Drives own vehicle admit Independent with ADL's Yes Is patient alert and oriented? Yes Caregiver for Another No Barriers to Discharge Yes Comment substance abuse, and depression Discharge Plan Inpatient Rehab Unit Transportation Arrangement Will depend up patient going home versus going to an inpatient facility for dual diagnosis Referrals Initiated Other Additional Comment Patient is still in DTs, will await when patient is more alert to complete assessment. Whiteboard Updated in Patient Room with No name and ext. # of [employer] Developer Comment Did not yet enter room, secondary to patient agitation but was able to meet with mother outside of the room. Review Status In Process Next Review Type Continued Stay Review
[2023-09-24] MEDS: METOPROLOL IR 25 MG TABLET 12.5 MG PO ×2 (13:09→20:49)
[2023-09-24] MEDS: chlordiazePOXIDE 25 MG CAPSULE 50 MG PO ×2 (14:44→20:48)
[2023-09-24] MEDS: MAGNESIUM CHLORIDE 64 MG TABLET PO (20:49)
[2023-09-25] VITALS (16 sets, daily range): BP systolic 92–123; BP diastolic 54–82; PULSE 60–112; RESP 6–20; TEMP 36.1–37.4; O2SAT 94–100
[2023-09-25] MEDS: PANTOPRAZOLE DR 40 MG TABLET PO (06:32)
[2023-09-25 07:06] LABS: Add Manual Diff / Slide Review NO; Basophils Absolute Auto 0 /uL (0-100); Basophils Percent Auto 0.7 % (0-2); Eosinophils Absolute Auto 0 /uL (0-450); Eosinophils Percent Auto 2.1 % (2-4); Hematocrit 36.2 % (36-46); Hemoglobin 12.6 g/dL (12.0-16.0); Lymphocytes Absolute Auto 400 /uL (1100-4500); Lymphocytes Percent Auto 21.7 % (25-40); Mean Corpuscular HGB Conc 34.8 % (30-36); Mean Corpuscular Hemoglobin 32.8 PG (26-34); Mean Corpuscular Volume 94.3 fL (80-100); Monocytes Absolute Auto 300 /uL (0-900); Monocytes Percent Auto 13.1 % (3-14); Neutrophils Absolute Auto 1200 /uL (1500-7000); Neutrophils Percent Auto 62.4 % (50-75); Platelet Count 74 X10^3/uL (150-400); Red Blood Cell Count 3.84 X10^6/uL (4.0-5.2); Red Cell Distribution Width 15.8 % (11.6-14.8)
[2023-09-25 07:14] LABS: BUN Creatinine Ratio 18.3 (6-22); Blood Urea Nitrogen 11 mg/dL (7-17); Calcium 9.8 mg/dL (8.4-10.2); Carbon Dioxide 33 mmol/L (22-32); Chloride 95 mmol/L (98-107); Estimated Glomerular Filt Rate > 60 mL/min (>60); Glucose 88 mg/dL (70-100); HEMOLYSIS < 15 (0-50); Potassium 3.4 mmol/L (3.4-5.1); Sodium 134 mmol/L (137-145)
[2023-09-25] MEDS: FOLIC ACID 1 MG TABLET PO (08:29)
[2023-09-25] MEDS: chlordiazePOXIDE 25 MG CAPSULE 50 MG PO (08:29)
[2023-09-25] MEDS: DULOXETINE 30 MG CAPSULE 60 MG PO (08:30)
[2023-09-25] MEDS: THIAMINE 100 MG TABLET PO (08:30)
[2023-09-25] MEDS: OLANZapine 2.5 MG TABLET PO (08:30)
[2023-09-25] MEDS: SPIRONOLACTONE 25 MG TABLET 50 MG PO (08:30)
[2023-09-25] MEDS: MAGNESIUM CHLORIDE 64 MG TABLET PO ×2 (08:31→20:22)
[2023-09-25] MEDS: FUROSEMIDE 40 MG TABLET PO ×2 (08:31→20:22)
[2023-09-25] MEDS: METOPROLOL IR 25 MG TABLET 12.5 MG PO ×2 (08:31→20:22)
[2023-09-25] MEDS: PREGABALIN 75 MG CAPSULE PO (08:31)
[2023-09-25] MEDS: MULTIVITAMIN 1 TABLET 1 TAB PO (08:31)
[2023-09-25] MEDS: EMPAGLIFLOZIN 10 MG 10 EACH PO (08:32)
[2023-09-25] MEDS: POTASSIUM CHLORIDE 20 MEQ TAB 40 MEQ PO (09:48)
--- NOTE | 2023-09-25 11:25 | DIET.CONS ---
Dietary Consultation Note Admission Date: 09/23/2023 00:57 Assessment: 37F with PMH of ETOH use disorder presented to ED with ETOH cessation related issues. Admitted with withdrawal symptoms. RD consulted for liver cirrhosis. Pt also has PMH of disordered eating (anorexia and bulimia) treated via [facility]. Finished program in November of 2022 and denies any symptoms of relapse. States she avoids sweets. Diet recall indicates three meals + snacks. Includes veggies and fruit. Has questions on protein sources for health. Also has questions regarding eating kirt with sugar/salt, up to one in a day. Has PMH of chronic GERD with esophagitis, possibly a result of h/o bulimia. Diet recall: 11a: coffee, yogurt 1:30p: half sub sandwich 330: fruit or xiomy bar or beef jerky 5:30p: half sandwich or chicken and veg Hs snack: apple Beverages: water, kombucha, low kcal cran juice Ht: 175.26 cm Wt: 69.8 kg BMI: 22.5 Last BM: 09/23/23 (09/23/23 15:37) MNA: 11 Mitesh Score: 23 Diet: 09/23/23 Breakfast Heart Healthy Diet Diet Modifications: Sodium Level: 2 gm Sodium Food Texture: Level 7 - Regular Liquid Consistency: Level 0 - Thin Nutrition Percent Meal Consumed 100% 09/24/23 18:00 Percent Meal Consumed 100% 09/24/23 12:30 Percent Meal Consumed 50% 09/23/23 18:51 Percent Meal Consumed snacks 09/23/23 15:04 Labs: RBC 3.84 X10^6/uL (4.0-5.2) L 09/25/23 06:30 Hgb 12.6 g/dL (12.0-16.0) 09/25/23 06:30 Hct 36.2 % (36-46) 09/25/23 06:30 Creatinine 0.60 mg/dL (0.52-1.04) 09/25/23 06:30 NT-Pro-B Natriuret Pep 238 pg/mL (<125) H 09/23/23 05:55 Nutrition Diagnosis: Nutrition knowledge deficit r/t limited education on MNT for liver/heart health aeb pt report Interventions: 1. Reviewed MNT for liver health: small/freq meals, heart healthy fats, fiber 2. Discussed GERD MNT 3. Discussed protein options and heart health: choosing fish, higher fat meats in moderation Monitoring/Evaluations: consult prn Electronically Signed by: Briseyda Whiteside 09/25/23 11:25 Clinical Dietitian [address] [id number]
--- NOTE | 2023-09-25 12:09 | PM.PN.1 ---
Subjective Subjective Interval history: Patient feels much improved. Denies hallucinations today. Remains mildly tachycardic, otherwise tremor improving on Librium. No overnight events. Exam Vital Signs (past 8 hours): - 09/25/23 06:00 09/25/23 06:00 09/25/23 07:00 Temperature Pulse Rate 79 Respiratory Rate 8 L Blood Pressure 102/60 Pulse Oximetry 100 Oxygen Delivery Method Room Air Oxygen Flow Rate 0 09/25/23 07:36 09/25/23 07:36 09/25/23 07:59 Temperature 98.7 F Pulse Rate 90 Respiratory Rate 6 L Blood Pressure 109/62 Pulse Oximetry 96 Oxygen Delivery Method Oxygen Flow Rate 09/25/23 08:00 09/25/23 08:00 09/25/23 08:01 Temperature Pulse Rate 88 88 Respiratory Rate 8 L 12 Blood Pressure 102/74 102/64 Pulse Oximetry 96 94 Oxygen Delivery Method Oxygen Flow Rate 09/25/23 10:04 Temperature Pulse Rate 112 H Respiratory Rate Blood Pressure Pulse Oximetry 100 Oxygen Delivery Method Oxygen Flow Rate Oxygen Delivery Method Room Air Oxygen Flow Rate 0 Narrative Exam Narrative: NAD, fluent speech. Alert and oriented to person, place and time. Pupils are symmetric and EOMI. Lungs are clear, normal rate and effort. Heart is tachycardic, without murmur. Abdomen is soft, nondistended. Extremities are free of edema. Good peripheral pulses. Objective Labs 09/25/23 06:30 09/25/23 06:30 Labs: Laboratory Results - last 24 hr 09/25/23 06:30 WBC 2.0 L RBC 3.84 L Hgb 12.6 Hct 36.2 MCV 94.3 MCH 32.8 MCHC 34.8 RDW 15.8 H Plt Count 74 L Neut % (Auto) 62.4 Lymph % (Auto) 21.7 L [facility] % (Auto) 13.1 Eos % (Auto) 2.1 Baso % (Auto) 0.7 Neut # (Auto) 1200 L Lymph # (Auto) 400 L [facility] # (Auto) 300 Eos # (Auto) 0 Baso # (Auto) 0 Sodium 134 L Potassium 3.4 Chloride 95 L Carbon Dioxide 33 H BUN 11 Creatinine 0.60 Estimated GFR > 60 BUN/Creatinine Ratio 18.3 Glucose 88 Calcium 9.8 [facility] Medical History (Updated 09/23/23 @ 01:19 by Michel De La Cruz MD) Pancytopenia Tricuspid regurgitation Mitral regurgitation HFrEF (heart failure with reduced ejection fraction) Left ventricular hypokinesis Hip pain, bilateral 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 Leukocytopenia GERD (gastroesophageal reflux disease) Caloric malnutrition Anorexia nervosa Neuropathy Depression Anxiety Alcoholism in remission Ankle pain, right Alcoholism Anorexia Surgical History History of total hip arthroplasty Social History household members: none Smoking Status: Current some day smoker Assessment & Plan Assessment & Plan narrative: 1. Alcohol use disorder with acute alcohol withdrawal syndrome, present on admission and active. This is improving. 2. Acute toxic encephalopathy related to withdrawal, present on admission and active. This is improving. 3. Acute hypokalemia, present on admission and improving. Labs pending. 4. Hypomagnesemia, present on admission and improved. 5. Acute leukopenia, present on admission and active. Labs pending. 6. 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 She remains euvolemic, no dyspnea or edema. 7. Chronic depression anxiety, present on admission and active. 8. Chronic GERD and esophagitis, present on admission and stable. Plan: -alcohol withdrawal will be treated with a [facility] protocol. librium 50 TID started yesterday, will decrease to 25 mg TID today. She was previously requiring precedex infusion. -potassium and magnesium will be repleted and monitored. -we will continue chronic medications for her cardiomyopathy. She will start her on Jardiance today and Entresto. -we will monitor her pancytopenia which is likely related to alcohol use disorder. Dispo: likely discharge home in the next 1-2 days once completed librium taper. Discussed with case management and previous hospitalist on duty to formulate the above assessment and plan. Time Spent With Patient Time with patient: 30 to 49 minutes with 50% spent counseling/coordinating care Quality VTE Deep Vein Thrombosis/Pulmonary Embolism Present on Admission: No
--- NOTE | 2023-09-25 13:36 | CM.SWNOTE ---
SIGHTER Note Patient awake and alert this afternoon, CLAUDIA Cho requests this SIGHTER discuss ALYSSA resources with patient and mom Andreia. Met w/patient and mom Andreia, introduced self and role. Suggested that this visit be conducted with patient alone and both patient/mom agreeable. Patient alert and oriented, denies current hallucination, calm mood, blunted affect. Good eye contact. According to conversation with patient alone at bedside: Psychosocial: Patient confirms she lives alone in an apt at [facility], subsidized housing. Patient is not employed, states she has received disability benefits x7 years. Patient says she has [facility] MCR (review of record shows [facility] WES not MCR). Patient lists her mom Andreia, friends and her AA sponsor as her supports. Patient reports an alcoholic father who drinks moderately at this time. Hx Use/Hx Treatment: Patient reports drinking since she was 14 yo and heavily drinking since she was 27 yo. Patient denies polysubstance abuse. Patient states her longest period of sobriety was likely during her treatment stays for ETOH/ALYSSA at [facility] in [place] 5 years ago and during her stay at [facility] in [place] - approx a month 1/2 long. Current Use: Patient reports drinking 12 airplane bottles of alcohol daily (1.7 oz). Patient likes buying this size, reports she can take these small bottles with her anywhere. Patient reports this amount of use for a long time years. Patient had been drinking a bottle of wine daily until switching to hard alcohol. Patient states she plans to remain sober upon discharge and plans to go to AA meetings 6 days per week, go to shinto, talk with her mom for support and talk with her AA sponsor daily. MH: Patient admits to MH struggle, admits to struggling with her eating disorder and says her treatment stay at the [facility], eating disorder therapy program in [place], was helpful. Both this SIGHTER and patient agreed it is difficult to assess stability of an eating disorder when patient is drinking her calories and often skips meals. Patient reports with pride that she is not bulimic and attempts to eat three meals per day. Patient does not have a counselor currently. Last counselor was seen many years ago. Encouraged patient to consider using [employer] to locate a counselor that accepts her insurance. Guided patient as she brought up the website on her phone and entered her geographical information. Patient said she would consider calling a counselor that populated in the search to establish. Patient endorses hx of suicidal thoughts with no plan. Denies homicidal thoughts. Denies hearing commanding voices. Intervention: Had lengthy conversation w/patient re her current alcohol use and plans for the future. Patient plans to remain sober, reports her motivation to remain sober is that she wants to live and says she cannot drink any longer because of her poor maria luz. Patient anticipates needing a liver transplant and knows she will not qualify unless she has been sober x 6 months. Patient admits she doesn't want to stop drinking but does want to live. Reviewed patient's plan to retain sobriety; strongly encouraged patient to consider inpatient ALYSSA treatment. Patient reports she wants to return home and will not consider inpatient at this time. Patient plans to remain sober by going to AA meetings, going to shinto, talking with sober friends and family and talking with her AA sponsor daily. Strongly encouraged patient to consider an outpatient treatment options; provided counseling resources, a flyer for [facility] and a list of outpatient detox and treatment/recovery programs. Patient states appreciation. Updated CLAUDIA Cho. Plan: Discharge home anticipated, w/friends and family to support, outpatient ALYSSA and counseling resources provided. MINDY Pak
[2023-09-25] MEDS: chlordiazePOXIDE 25 MG CAPSULE PO ×2 (15:37→20:22)
[2023-09-25] MEDS: LORazepam 1 MG TABLET PO (20:29)
[2023-09-26] VITALS: BP 95/61; PULSE 97; RESP 16; TEMP 36.3; O2SAT 95
[2023-09-26 04:00] VITALS: BP 104/70; PULSE 98; RESP 16; TEMP 35.7; O2SAT 98
[2023-09-26 05:31] LABS: BUN Creatinine Ratio 26.6 (6-22); Blood Urea Nitrogen 17 mg/dL (7-17); Calcium 10.2 mg/dL (8.4-10.2); Carbon Dioxide 33 mmol/L (22-32); Chloride 94 mmol/L (98-107); Estimated Glomerular Filt Rate > 60 mL/min (>60); Glucose 77 mg/dL (70-100); HEMOLYSIS < 15 (0-50); Potassium 3.5 mmol/L (3.4-5.1); Sodium 136 mmol/L (137-145)
[2023-09-26 05:41] LABS: Add Manual Diff / Slide Review NO; Basophils Absolute Auto 0 /uL (0-100); Basophils Percent Auto 1.3 % (0-2); Eosinophils Absolute Auto 100 /uL (0-450); Eosinophils Percent Auto 3.3 % (2-4); Hematocrit 38.7 % (36-46); Hemoglobin 13.4 g/dL (12.0-16.0); Lymphocytes Absolute Auto 800 /uL (1100-4500); Lymphocytes Percent Auto 42.2 % (25-40); Mean Corpuscular HGB Conc 34.7 % (30-36); Mean Corpuscular Hemoglobin 32.6 PG (26-34); Mean Corpuscular Volume 93.9 fL (80-100); Monocytes Absolute Auto 400 /uL (0-900); Monocytes Percent Auto 19.8 % (3-14); Neutrophils Absolute Auto 700 /uL (1500-7000); Neutrophils Percent Auto 33.4 % (50-75); Platelet Count 117 X10^3/uL (150-400); Red Blood Cell Count 4.12 X10^6/uL (4.0-5.2); Red Cell Distribution Width 16.4 % (11.6-14.8)
[2023-09-26] MEDS: PANTOPRAZOLE DR 40 MG TABLET PO (06:21)
[2023-09-26] MEDS: FUROSEMIDE 40 MG TABLET PO (08:22)
[2023-09-26] MEDS: FOLIC ACID 1 MG TABLET PO (08:22)
[2023-09-26] MEDS: METOPROLOL IR 25 MG TABLET 12.5 MG PO (08:22)
[2023-09-26] MEDS: THIAMINE 100 MG TABLET PO (08:23)
[2023-09-26] MEDS: DULOXETINE 30 MG CAPSULE 60 MG PO (08:23)
[2023-09-26] MEDS: OLANZapine 2.5 MG TABLET PO (08:23)
[2023-09-26] MEDS: EMPAGLIFLOZIN 10 MG 10 EACH PO (08:23)
[2023-09-26] MEDS: SPIRONOLACTONE 25 MG TABLET 50 MG PO (08:23)
[2023-09-26] MEDS: MULTIVITAMIN 1 TABLET 1 TAB PO (08:23)
[2023-09-26] MEDS: PREGABALIN 75 MG CAPSULE PO (08:23)
[2023-09-26 08:27] VITALS: BP 108/71; PULSE 97; RESP 18; TEMP 36.1; O2SAT 97
--- NOTE | 2023-09-26 08:31 | PM.DS.1 ---
History of Present Illness History of Present Illness Date Patient Seen: 09/26/23 Time Patient Seen: 08:31 Chief complaint: hallucinations/detoxing Narrative: Per admitting provider, The patient is a 37-year-old female with history of alcohol use disorder who presented to the emergency department 2 days ago and then again last night for alcohol cessation related issues. She has a history of drinking 3-5 shots of alcohol a day. Her last drink was on October 22. She presented with withdrawal symptoms including hallucinations last night. She denies any history of withdrawal seizures. She also does note some left knee pain for the last several days to week. She denies ingestion of other medication and notes that she uses alcohol for her severe anxiety and agoraphobia. She also notes a history of heart failure but denies any dyspnea, or leg edema. She was initially treated with a CIWA protocol in the emergency department. Volume is being substituted for Ativan on the protocol due to shortage issues. She was found to be hypokalemic in the emergency department. She was also leukopenic. A urine tox screen was positive for benzodiazepines. Discharge Providers Provider Date of admission: 09/23/23 00:57 Discharge Date: 09/26/23 Primary care physician: Andrew Herrera MD Consults: 09/23/23 01:05 Consult to Dietitian, Adult Routine Comment: Reason For Exam: liver cirrhosis Discharge provider: Darrell Mccollum DO Summary Hospital Course Discharge Diagnosis: 1. Alcohol use disorder with acute alcohol withdrawal syndrome, present on admission and active. This is improving. 2. Acute toxic encephalopathy related to withdrawal, present on admission and active. This is improving. 3. Acute hypokalemia, present on admission and improving. Labs pending. 4. Hypomagnesemia, present on admission and improved. 5. Acute leukopenia, present on admission and active. Labs pending. 6. 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 She remains euvolemic, no dyspnea or edema. 7. Chronic depression anxiety, present on admission and active. 8. Chronic GERD and esophagitis, present on admission and stable. Hospital Course: This is a 37 year old female with PMH of alcoholic cardiomyopathy, depression, anxiety, GERD who was admitted with alcohol withdrawal. She was admitted initially to the ICU requiring precedex infusion. After a few days this was able to be weaned down, she was then continued on librium taper with slow resolution of her withdrawal symptoms. She had no ongoing symptoms of withdrawal at the time of discharge, and had been weaned from librium taper completely. Alcohol cessation was recommended, and ongoing follow up with PCP is recommended as previously scheduled. Time Spent with Patient Time spent: Greater than 30 minutes Exam Vital Signs (past 8 hours): - 09/26/23 04:00 09/26/23 08:27 Temperature 96.3 F L 97.0 F L Pulse Rate 98 H 97 H Respiratory Rate 16 18 Blood Pressure 104/70 108/71 Pulse Oximetry 98 97 Oxygen Flow Rate 0 0 Oxygen Delivery Method Room Air Oxygen Flow Rate 0 Narrative Exam Narrative: NAD, fluent speech. Alert and oriented to person, place and time. Pupils are symmetric and EOMI. Lungs are clear, normal rate and effort. CV: RRR, without murmur. Abdomen is soft, nondistended. Extremities are free of edema. Good peripheral pulses. Objective Labs 09/26/23 04:15 09/26/23 04:15 Labs: Laboratory Results - last 24 hr 09/26/23 04:15 WBC 2.0 L RBC 4.12 Hgb 13.4 Hct 38.7 MCV 93.9 MCH 32.6 MCHC 34.7 RDW 16.4 H Plt Count 117 L Neut % (Auto) 33.4 L D Lymph % (Auto) 42.2 H D [place] % (Auto) 19.8 H Eos % (Auto) 3.3 Baso % (Auto) 1.3 Neut # (Auto) 700 L Lymph # (Auto) 800 L [place] # (Auto) 400 Eos # (Auto) 100 Baso # (Auto) 0 Sodium 136 L Potassium 3.5 Chloride 94 L Carbon Dioxide 33 H BUN 17 Creatinine 0.64 Estimated GFR > 60 BUN/Creatinine Ratio 26.6 H Glucose 77 Calcium 10.2 PFSH Medical History (Updated 09/23/23 @ 01:19 by Michel De La Cruz MD) Pancytopenia Tricuspid regurgitation Mitral regurgitation HFrEF (heart failure with reduced ejection fraction) Left ventricular hypokinesis Hip pain, bilateral 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 Leukocytopenia GERD (gastroesophageal reflux disease) Caloric malnutrition Anorexia nervosa Neuropathy Depression Anxiety Alcoholism in remission Ankle pain, right Alcoholism Anorexia Surgical History History of total hip arthroplasty Social History household members: none Smoking Status: Current some day smoker Discharge Plan Discharge Plan Patient Disposition: Home Provider Discharge Comment: You were admitted to the hospital with alcohol withdrawal. This improved with medications and time. No changes to your usual home medications are recommended on discharge. Discharge orders & Medications Prescriptions: Continued thiamine HCl (vitamin B1) 100 mg tablet 100 mg PO DAILY Qty: 90 3RF cholecalciferol (vitamin D3) [Vitamin D3] 25 mcg (1,000 unit) tablet 2,000 unit PO DAILY Qty: 0 spironolactone 50 mg tablet 50 mg PO DAILY Qty: 90 0RF duloxetine 60 mg capsule, delayed rel sprinkle 60 mg PO DAILY Qty: 90 1RF alendronate 70 mg tablet See Rx Instructions .ROUTE .COMPLEX Qty: 12 0RF Dose Instruction: TAKE 1 TABLET BY MOUTH ON FRIDAY EVERY WEEK Rx Instructions: TAKE 1 TABLET BY MOUTH ON FRIDAY EVERY WEEK Entresto 24-26 mg tablet 1 tab PO BID Qty: 180 0RF pregabalin 75 mg capsule 75 mg PO DAILY furosemide 40 mg tablet 40 mg PO BID Qty: 120 2RF mecobalamin (vitamin B12) 500 mcg tablet,chewable 500 mcg PO DAILY Slow-Mag 71.5 mg tablet,delayed release (DR/EC) 71.5 mg PO BID Qty: 30 0RF oxycodone 5 mg tablet 5 mg PO Q6H PRN (Reason: pain) Qty: 14 0RF lorazepam [Ativan] 1 mg tablet 1 mg PO PRN PRN (Reason: Anxiety) Jardiance 10 mg Tablet 10 mg PO DAILY olanzapine 2.5 mg tablet 2.5 mg PO DAILY Follow up/Referrals: Andrew Herrera MD [Primary Care Provider] - (*Appt on at 1:00pm with Aminata Monson PA-C [phone]) Diet/Activity/Treatments Diet: Diet as Tolerated and Regular Activity: As tolerated, no restrictions Visit Report/Discharge Packet Stand Alone Forms: Patient Portal/API, Stroke Signs & Symptoms Discharge Data Primary Care Provider: Andrew Herrera Quality VTE Deep Vein Thrombosis/Pulmonary Embolism Present on Admission: No
[2023-09-26] MEDS: MAGNESIUM CHLORIDE 64 MG TABLET PO (08:33)
--- NOTE | 2023-09-26 11:14 | CM.DPNOTE ---
DC Note Discharge home today w/family and friends to assist as needed. Outpatient resources provided yesterday. Patient denied further need. Patient being scheduled by parts order and stock clerk Annalisa, [facility], for outpatient follow up with Dr Herrera. JW
[2023-09-26 14:48] LABS: Aspartate Aminotransferase 321 IU/L (14-36)
[2023-09-26 16:49] LABS: Aspartate Aminotransferase 268 IU/L (14-36)
== END 2023-09-26 09:26 | disposition home or self-care (01) | DRG 896 ==
LOC: ED 09-23 00:26 → AC 09-23 00:57 → ICU 09-23 07:12
PROVIDERS: Hospitalist; Admitting Provider Internal Medicine; Emergency Provider Emergency Medicine; Family Provider Family Medicine; PCP Family Medicine; Referring Provider Emergency Medicine; Visit Provider Internal Medicine
DX: F10.231 Alcohol dependence with withdrawal delirium (principal); G92.9 Unspecified toxic encephalopathy; I42.6 Alcoholic cardiomyopathy; I50.22 Chronic systolic (congestive) heart failure; E87.6 Hypokalemia; K21.9 Gastro-esophageal reflux disease without esophagitis; E83.42 Hypomagnesemia; M25.562 Pain in left knee; F32.9 Major depressive disorder, single episode, unspecified; F41.9 Anxiety disorder, unspecified; K20.90 Esophagitis, unspecified without bleeding; F17.290 Nicotine dependence, other tobacco product, uncomplicated; Y90.0 Blood alcohol level of less than 20 mg/100 ml
CPT/HCPCS: 36415; 73562; 80048; 80053; 80305; 80320; 80329; 81025; 83735; 83880; 84100; 84439; 84443; 85007; 85025; 87797; 93005; 96365; 96366; 96367; 96375; 99284; C9113; G0480; J2060; J2405; J2560; J3360; J3475

== ENCOUNTER → 2023-10-03 15:32 | Outpatient (CLI) | payer OTHER, MEDICAID, SELFPAY ==
[2023-09-23 09:06] VITALS: BMI 22.5
[2023-10-03 16:32] LABS: Add Manual Diff / Slide Review NO; Basophils Absolute Auto 0 /uL (0-100); Basophils Percent Auto 1.3 % (0-2); Eosinophils Absolute Auto 0 /uL (0-450); Eosinophils Percent Auto 0.7 % (2-4); Hematocrit 41.9 % (36-46); Hemoglobin 14.3 g/dL (12.0-16.0); Lymphocytes Absolute Auto 900 /uL (1100-4500); Lymphocytes Percent Auto 37.1 % (25-40); Mean Corpuscular HGB Conc 34.2 % (30-36); Mean Corpuscular Hemoglobin 32.9 PG (26-34); Mean Corpuscular Volume 96.1 fL (80-100); Monocytes Absolute Auto 400 /uL (0-900); Monocytes Percent Auto 17.9 % (3-14); Neutrophils Absolute Auto 1100 /uL (1500-7000); Platelet Count 306 X10^3/uL (150-400); Red Blood Cell Count 4.36 X10^6/uL (4.0-5.2); Red Cell Distribution Width 15.8 % (11.6-14.8); White Blood Cell Count 2.5 X10^3/uL (4.5-11.0)
[2023-10-03 16:45] LABS: Alanine Aminotransferase 56 IU/L (<35); Albumin 4.9 g/dL (3.5-5.0); Albumin Globulin Ratio 1.1 (1.0-2.8); Alkaline Phosphatase 101 U/L (38-126); Aspartate Aminotransferase 49 IU/L (14-36); BUN Creatinine Ratio 16.3 (6-22); Bilirubin Total 0.5 mg/dL (0.2-1.3); Blood Urea Nitrogen 14 mg/dL (7-17); Calcium 10.8 mg/dL (8.4-10.2); Carbon Dioxide 33 mmol/L (22-32); Chloride 94 mmol/L (98-107); Estimated Glomerular Filt Rate > 60 mL/min (>60); Globulin 4.4 g/dL (1.7-4.1); Glucose 79 mg/dL (70-100); HEMOLYSIS < 15 (0-50); Magnesium 2.2 mg/dL (1.6-2.3); Potassium 4.3 mmol/L (3.4-5.1); Sodium 136 mmol/L (137-145); Total Protein 9.3 g/dL (6.3-8.2)
[2023-10-03 17:11] LABS: TSH w/ Reflex to FT4 3.34 uIU/mL (0.47-4.68)
== END ==
PROVIDERS: Family Provider Family Medicine; PCP Family Medicine; Referring Provider Family Medicine; Visit Provider Family Medicine
DX: D72.819 Decreased white blood cell count, unspecified (principal); F50.00 Anorexia nervosa, unspecified; F10.929 Alcohol use, unspecified with intoxication, unspecified; K72.90 Hepatic failure, unspecified without coma
CPT/HCPCS: 36415; 80053; 83735; 84443; 85025

== ENCOUNTER → 2023-11-18 10:00 | Outpatient (CLI) | payer OTHER, MEDICAID, SELFPAY ==
[2023-09-23 09:06] VITALS: BMI 22.5
[2023-11-18 11:17] LABS: Alanine Aminotransferase 23 IU/L (<35); Albumin Globulin Ratio 1.4 (1.0-2.8); Alkaline Phosphatase 90 U/L (38-126); Aspartate Aminotransferase 47 IU/L (14-36); BUN Creatinine Ratio 11.5 (6-22); Blood Urea Nitrogen 10 mg/dL (7-17); Calcium 9.7 mg/dL (8.4-10.2); Carbon Dioxide 28 mmol/L (22-32); Chloride 93 mmol/L (98-107); Estimated Glomerular Filt Rate > 60 mL/min (>60); Globulin 3.7 g/dL (1.7-4.1); Glucose 78 mg/dL (70-100); HEMOLYSIS < 15 (0-50); Potassium 3.2 mmol/L (3.4-5.1); Sodium 134 mmol/L (137-145); Total Protein 8.7 g/dL (6.3-8.2)
[2023-11-20 13:36] LABS: Parathyroid Hormone, Intact 64 pg/mL (15-65)
[2023-11-21 14:28] LABS: Alpha-1 Globulin, Ur 6.2 % (.); Beta Globulin, Ur 17.6 % (.); Gamma Globulin, Ur 9.5 % (.); M-Spike % Not Observed % (Not Observed); Urine Total Protein 12.9 mg/dL (Not Estab.)
[2023-11-24 16:31] LABS: Albumin 4.5 g/dL (2.9-4.4); Alpha-1-Globulin 0.3 g/dL (0.0-0.4); Alpha-2-Globulin 0.6 g/dL (0.4-1.0); Gamma Globulin 1.3 g/dL (0.4-1.8); Globulin Total 3.3 g/dL (2.2-3.9); Protein, Total 7.8 g/dL (6.0-8.5)
== END ==
PROVIDERS: Family Provider Family Medicine; PCP Family Medicine; Referring Provider Registered Nurse; Visit Provider Registered Nurse
DX: I50.20 Unspecified systolic (congestive) heart failure (principal); E87.6 Hypokalemia; E83.42 Hypomagnesemia; D61.818 Other pancytopenia; E83.52 Hypercalcemia
CPT/HCPCS: 36415; 80053; 82310; 83970; 84155; 84156; 84165; 84166

== ENCOUNTER → 2023-12-05 09:16 | Outpatient (CLI) | payer OTHER, MEDICAID, SELFPAY ==
[2023-09-23 09:06] VITALS: BMI 22.5
[2023-12-05 09:58] LABS: BUN Creatinine Ratio 6.3 (6-22); Blood Urea Nitrogen 6 mg/dL (7-17); Calcium 10.2 mg/dL (8.4-10.2); Carbon Dioxide 28 mmol/L (22-32); Chloride 100 mmol/L (98-107); Estimated Glomerular Filt Rate > 60 mL/min (>60); Glucose 123 mg/dL (70-100); HEMOLYSIS < 15 (0-50); Potassium 3.9 mmol/L (3.4-5.1); Sodium 136 mmol/L (137-145)
== END ==
LOC: LAB 09:17
PROVIDERS: Family Provider Family Medicine; PCP Family Medicine; Referring Provider Internal Medicine Cardiovascular Disease; Visit Provider Internal Medicine Cardiovascular Disease
DX: I50.20 Unspecified systolic (congestive) heart failure (principal)
CPT/HCPCS: 36415; 80048

== ENCOUNTER 2023-12-13 17:17 | Inpatient (IN) | payer OTHER, MEDICAID, SELFPAY ==
[2023-09-23 09:06] VITALS: BMI 22.5
[2023-12-13] VITALS (45 sets, daily range): BP systolic 72–106; BP diastolic 45–63; PULSE 72–114; RESP 6–31; TEMP 35.8; O2SAT 94–100; BMI 23.0
--- NOTE | 2023-12-13 17:38 | DI.RAD.S_ITS ---
PROCEDURE: XR CHEST 1V INDICATIONS: palpitations TECHNIQUE: One view of the chest was acquired. COMPARISON: [facility], CR, XR CHEST 1V, 09/20/2023, 12:36. FINDINGS: Surgical changes and devices: None. Lungs and pleura: Lungs are clear. No pleural effusions or pneumothorax. Mediastinum: Mediastinal contours appear normal. Heart size is normal. Bones and chest wall: No suspicious bony lesions. Overlying soft tissues appear unremarkable. Posttraumatic appearance of left humeral head IMPRESSION: No acute cardiopulmonary abnormality is seen. Remote injury to the left shoulder. Dictated by: Alejo Baez M.D. on 12/13/2023 at 16:53 Approved by: Alejo Baez M.D. on 12/13/2023 at 16:54
[2023-12-13 17:47] LABS: Add Manual Diff / Slide Review NO; Basophils Absolute Auto 0 /uL (0-100); Basophils Percent Auto 0.9 % (0-2); Eosinophils Absolute Auto 0 /uL (0-450); Hematocrit 41.4 % (36-46); Hemoglobin 14.5 g/dL (12.0-16.0); Lymphocytes Absolute Auto 2100 /uL (1100-4500); Lymphocytes Percent Auto 45.1 % (25-40); Mean Corpuscular Hemoglobin 32.6 PG (26-34); Mean Corpuscular Volume 93.1 fL (80-100); Monocytes Absolute Auto 700 /uL (0-900); Monocytes Percent Auto 14.6 % (3-14); Neutrophils Absolute Auto 1900 /uL (1500-7000); Neutrophils Percent Auto 39.4 % (50-75); Platelet Count 274 X10^3/uL (150-400); Red Blood Cell Count 4.44 X10^6/uL (4.0-5.2); Red Cell Distribution Width 13.8 % (11.6-14.8); White Blood Cell Count 4.8 X10^3/uL (4.5-11.0)
[2023-12-13] MEDS: FOLIC ACID 1 MG TABLET PO (17:49)
[2023-12-13] MEDS: THIAMINE 200 MG in SODIUM CHLORIDE 0.9% 100 ML 408 MG IV (17:49)
[2023-12-13] MEDS: SODIUM CHLORIDE 0.9% 1,000 ML 1000 ML IV (17:50)
[2023-12-13 17:54] LABS: INR 0.9 (0.9-1.3); Prothrombin Time 10.5 SECONDS (9.4-12.5)
[2023-12-13 17:59] LABS: Alanine Aminotransferase 32 IU/L (<35); Albumin 4.8 g/dL (3.5-5.0); Albumin Globulin Ratio 1.3 (1.0-2.8); Alkaline Phosphatase 80 U/L (38-126); Aspartate Aminotransferase 54 IU/L (14-36); BUN Creatinine Ratio 5.3 (6-22); Bilirubin Total 0.5 mg/dL (0.2-1.3); Blood Urea Nitrogen 9 mg/dL (7-17); Calcium 10.1 mg/dL (8.4-10.2); Carbon Dioxide 26 mmol/L (22-32); Chloride 96 mmol/L (98-107); Creatine Kinase 77 U/L (30-135); Estimated Glomerular Filt Rate 40 mL/min (>60); Globulin 3.7 g/dL (1.7-4.1); Glucose 94 mg/dL (70-100); HEMOLYSIS < 15 (0-50); Magnesium 2.3 mg/dL (1.6-2.3); Potassium 3.9 mmol/L (3.4-5.1); Sodium 137 mmol/L (137-145); Total Protein 8.5 g/dL (6.3-8.2)
[2023-12-13 18:06] LABS: Ethanol (ETOH) 333 mg/dL
[2023-12-13 18:09] LABS: Ammonia (NH3) < 9 umol/L (9-30)
[2023-12-13 18:11] LABS: Troponin I 0.019 ng/mL (0.01-0.034)
--- NOTE | 2023-12-13 18:18 | PC.NURSE ---
pt states she is not experiencing with drawls currently due to the last drink she had was at 1425. Mother states she was over to patient's apartment at 1600 and no drinking occurred after this. patient states she does not want treatment but wants to go home.
--- NOTE | 2023-12-13 18:23 | ED.ARRPALP ---
HPI - Arrhythmia/Palpitations General Chief Complaint: Arrhythmia/Palpitations Stated Complaint: Heart Palpitations Time Seen by Provider: 12/13/23 17:30 Source: patient Mode of arrival: Ambulatory History of Present Illness HPI narrative: Patient is a 38-year-old history of cirrhosis alcohol use disorder congestive heart failure with EF 25%, CVA presenting today with alcohol intoxication. She was brought here by her mother who is quite concerned. Patient reports that she was sober for 60 days and started drinking 2 days ago. She is currently intoxicated. She also thought maybe she was having some heart palpitations. She denies any chest pain or shortness of breath. She does not feel like she is significantly swollen. She reports that she is taking all of her medications. She is feeling a little bit anxious. Overall appears well. He was previously admitted the ICU September 22 through September 26. Her mother is with her and wanting her to go back to detox. However nursing talk with patient alone and patient states that she does not actually want detox. She is noted to be actually quite hypotensive blood pressure in the 80s but sitting up awake alert and oriented. Normal blood pressure is usually about 110 systolic Patient states that blood pressure medications were recently increased. She also reports she had a sandwich 2 days ago and thought that it was bad. She vomited 5 times afterwards no consistent vomiting no diarrhea or abdominal pain. Reports she had not started drinking alcohol at that time. Related Data Home Medications Medication Instructions Recorded Confirmed cholecalciferol (vitamin D3) 25 2,000 unit PO DAILY #0 tabs 02/07/23 10/03/23 mcg (1,000 unit) tablet (Vitamin D3) mecobalamin (vitamin B12) 500 mcg 500 mcg PO DAILY 02/07/23 10/03/23 chewable tablet olanzapine 2.5 mg tablet 2.5 mg PO DAILY 02/18/23 10/03/23 empagliflozin 10 mg tablet 10 mg PO DAILY 09/23/23 10/03/23 (Jardiance) lorazepam 1 mg tablet (Ativan) 1 mg PO PRN PRN Anxiety 09/23/23 10/03/23 Previous Rx's Medication Instructions Recorded thiamine HCl (vitamin B1) 100 mg 100 mg PO DAILY #90 tabs 12/31/22 tablet oxycodone 5 mg tablet 5 mg PO Q6H PRN pain #14 tabs 05/19/23 spironolactone 50 mg tablet 50 mg PO DAILY #90 tabs 04/10/23 furosemide 40 mg tablet 40 mg PO BID #120 tabs 04/17/23 magnesium chloride 71.5 mg 71.5 mg PO BID #30 tabs 09/20/23 (magnesium chloride) tablet,delayed release (Slow-Mag) alendronate 70 mg tablet See Rx Instructions .Route 09/30/23 .COMPLEX #12 tabs baclofen 10 mg tablet 10 mg PO BID #180 tabs 10/03/23 duloxetine 30 mg capsule,delayed 30 mg PO DAILY #90 caps 10/03/23 release duloxetine 60 mg capsule,delayed 60 mg PO DAILY #90 caps 10/03/23 release sprinkle sacubitril 24 mg-valsartan 26 mg 1 tab PO BID #180 tabs 10/22/23 tablet (Entresto) Allergies Allergy/AdvReac Type Severity Reaction Status Date / Time gabapentin AdvReac Intermediate Mental Verified 12/13/23 21:19 status changes Patient History Medical History Pancytopenia Tricuspid regurgitation Mitral regurgitation HFrEF (heart failure with reduced ejection fraction) Left ventricular hypokinesis Hip pain, bilateral 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 Leukocytopenia GERD (gastroesophageal reflux disease) Caloric malnutrition Anorexia nervosa Neuropathy Depression Anxiety Alcoholism in remission Ankle pain, right Alcoholism Anorexia Surgical History History of total hip arthroplasty Social History household members: none Smoking Status: Current some day smoker Smoking Status: Current some day smoker alcohol intake frequency: 3 or more drinks per day Substance Use Type: does not use Exam Initial Vital Signs Initial Vital Signs: Vital Signs Temperature 96.5 F L 12/13/23 17:26 Pulse Rate 105 H 12/13/23 17:26 Respiratory Rate 20 12/13/23 17:26 Blood Pressure 86/54 L 12/13/23 17:26 Pulse Oximetry 98 12/13/23 17:26 Oxygen Delivery Method Room Air 12/13/23 17:26 GENERAL: Alert awake 38-year-old female sitting up appears well HEENT: Head atraumatic,EOMI, pupils reactive, face symmetric, [moist] mucous membranes CARDIOVASCULAR: Regular rate and rhythm without murmurs, rubs or gallops. RESPIRATORY: Breath sounds equal bilaterally, no wheezes rales or rhonchi. ABDOMEN: Soft, nontender. No obvious swelling or fluid Normoactive bowel sounds all 4 quadrants. No guarding or rebound. EXTREMITIES: Normal range of motion, no clubbing or edema. Neurovascularly intact NEUROLOGICAL: Alert and oriented x4.Normal gait and speech. SKIN: Warm, dry, no laceration, no petechiae, no rashes or lesions. Procedures Central Line Placement Right IJ: Time Out Performed: Yes MD Prep: mask, gown and gloves Central Line Prep: Chlorhexidine scrub and sterile drapes applied Local Anesthetic: lidocaine 1% Amount of anesthesia used (mL): 3 Ultrasound Used for Placement: Yes Central Line Lumen Inserted: triple Post Procedure: good blood return, all ports aspirated, flushed, capped, sterile dressing applied and line stabilization device Post Procedure X-Ray: tip of catheter in good position and no pneumothorax seen Patient Tolerated Procedure: Well and No complications Course Orders Ordered: ED Orders 12/13/23 17:35 BNP [NT-proBNP (BNP-Adult 18+)] Stat CBC Auto Diff [Complete Blood Count AUTO DIFF] Stat CMP [Comprehensive Metabolic Panel] Stat Ethanol (ETOH) Stat Lactate (Lactic Acid) Stat MAG [Magnesium] Stat PT [Prothrombin Time INR] Stat Procalcitonin Stat TSH [Thyroid Stimulating Hormone] Stat Troponin & CK Cardiac Panel Stat 12/13/23 17:38 Chest [XR chest 1V] Stat EKG-12 Lead Stat 12/13/23 17:46 Ammonia (NH3) Stat 12/13/23 20:09 Test Urine Stat UA Complete [Urinalysis and Microscopic] Stat Urine Drug Screen, Rapid Stat 12/13/23 21:18 Blood Culture Stat 12/13/23 22:00 Complete Blood Count AUTO DIFF DAILY Comprehensive Metabolic Panel DAILY Magnesium DAILY NT-proBNP (BNP-Adult 18+) DAILY Prothrombin Time INR DAILY 12/13/23 22:01 Consult to Dietitian, Adult Routine Consult to Discharge Planning Routine 12/13/23 22:19 Chest [XR chest 1V] Stat 12/13/23 23:10 Lactate (Lactic Acid) Stat Acetaminophen (Acetaminophen 325 Mg Tablet) 650 mg PO Q6H PRN PRN Reason: Fever/Mild Pain (1-3) Duloxetine HCl (Duloxetine 30 Mg Capsule) 30 mg PO DAILY JACINTO Enoxaparin Sodium (Enoxaparin 40 Mg/0.4 Ml Syringe) 40 mg SUBCUT DAILY JACINTO Folic Acid (Folic Acid 1 Mg Tablet) 1 mg PO DAILY JACINTO Haloperidol (Haloperidol 5 Mg/Ml Vial) 2 mg IV Q1HR PRN PRN Reason: Hallucinations Sodium Chloride (Normal Saline 0.9%) 1,000 mls @ 1,000 mls/hr IV BOLUS PRN PRN Reason: Fluid replacement NOREPINEPHRINE BITARTRATE/D5W (Levophed) 4 mg in 250 mls @ 26.535 mls/hr IV TITRATE JACINTO; Protocol Last Titration: 12/14/23 00:02 Dose: 0.2 mcg/kg/min, 53.07 mls/hr Documented By: Admin: 12/13/23 21:29 Dose: 0.1 mcg/kg/min, 26.535 mls/hr Documented By: SATISH Sodium Chloride (Normal Saline 0.9%) 1,000 mls @ 125 mls/hr IV CONT JACINTO Last Admin: 12/13/23 22:58 Dose: 125 mls/hr Documented By: SATISH Lorazepam (Lorazepam 2 Mg/Ml Inj) 0 mg IV CIWAPRN PRN; Protocol PRN Reason: Alcohol Withdrawal Last Admin: 12/13/23 23:26 Dose: 1 mg Documented By: PORTILLO Multivitamins (Multivitamin 1 Tablet) 1 tab PO DAILY JACINTO Naloxone HCl (Naloxone 0.4 Mg/Ml Vial) 0.2 mg IV Q2MIN PRN PRN Reason: Opiate Reversal Non-Formulary Medication (Duloxetine) 60 mg PO DAILY [facility] Olanzapine (Olanzapine 2.5 Mg Tablet) 2.5 mg PO DAILY JACINTO Pantoprazole Sodium (Pantoprazole Dr 40 Mg Tablet) 40 mg PO 0700 JACINTO Thiamine HCl (Thiamine 100 Mg Tablet) 100 mg PO DAILY JACINTO Stop: 12/17/23 09:01 Discontinued Medications Folic Acid (Folic Acid 1 Mg Tablet) 1 mg PO NOW ONE Stop: 12/13/23 17:38 Last Admin: 12/13/23 17:49 Dose: 1 mg Documented By: SATISH Sodium Chloride (Normal Saline 0.9%) 1,000 mls @ 1,000 mls/hr IV BOLUS ONE Stop: 12/13/23 18:36 Last Infusion: 12/13/23 18:44 Dose: Infused Documented By: Admin: 12/13/23 17:50 Dose: 1,000 mls/hr Documented By: SATISH Thiamine HCl 200 mg/ Sodium (Chloride) 102 mls @ 408 mls/hr IV NOW ONE Stop: 12/13/23 17:38 Last Infusion: 12/13/23 18:20 Dose: Infused Documented By: Admin: 12/13/23 17:49 Dose: 408 mls/hr Documented By: SATISH Sodium Chloride (Normal Saline 0.9%) 500 mls @ 1,000 mls/hr IV BOLUS ONE Stop: 12/13/23 20:15 Last Infusion: 12/13/23 20:49 Dose: Infused Documented By: Admin: 12/13/23 19:54 Dose: 1,000 mls/hr Documented By: SATISH Piperacillin Sod/Tazobactam (Sod 4.5 gm/ Sodium Chloride) 100 mls @ 200 mls/hr IV NOW ONE Stop: 12/13/23 21:05 Last Infusion: 12/13/23 23:37 Dose: Infused Documented By: Admin: 12/13/23 22:46 Dose: 200 mls/hr Documented By: SATISH Lorazepam (Lorazepam 2 Mg/Ml Inj) 1 mg IV NOW ONE Stop: 12/13/23 19:47 Last Admin: 12/13/23 19:55 Dose: 1 mg Documented By: SATISH Vital Signs Vital signs: Vital Signs - 8 hr 12/13/23 17:26 12/13/23 17:49 12/13/23 18:00 Temperature 96.5 F L Pulse Rate 105 H 86 88 Respiratory Rate 20 16 16 Blood Pressure 86/54 L Pulse Oximetry 98 100 97 Oxygen Delivery Method Room Air 12/13/23 18:00 12/13/23 18:16 12/13/23 18:16 Temperature Pulse Rate 93 H Respiratory Rate 25 H Blood Pressure 89/54 L 86/47 L Pulse Oximetry 97 Oxygen Delivery Method 12/13/23 18:30 12/13/23 18:30 12/13/23 18:45 Temperature Pulse Rate 82 79 Respiratory Rate 21 23 Blood Pressure 97/55 L Pulse Oximetry 100 99 Oxygen Delivery Method Room Air 12/13/23 18:45 12/13/23 19:00 12/13/23 19:00 Temperature Pulse Rate 72 Respiratory Rate 11 L Blood Pressure 87/52 L 89/54 L Pulse Oximetry 99 Oxygen Delivery Method 12/13/23 19:15 12/13/23 19:15 12/13/23 19:30 Temperature Pulse Rate 77 78 Respiratory Rate 12 10 L Blood Pressure 96/52 L Pulse Oximetry 98 100 Oxygen Delivery Method 12/13/23 19:30 12/13/23 19:45 12/13/23 19:45 Temperature Pulse Rate 76 Respiratory Rate 8 L Blood Pressure 97/50 L 94/51 L Pulse Oximetry 98 Oxygen Delivery Method 12/13/23 20:00 12/13/23 20:00 12/13/23 20:13 Temperature Pulse Rate 82 82 Respiratory Rate 29 H Blood Pressure 93/54 L Pulse Oximetry 99 100 Oxygen Delivery Method 12/13/23 20:13 12/13/23 20:15 12/13/23 20:15 Temperature Pulse Rate 82 Respiratory Rate Blood Pressure 99/53 L 95/51 L Pulse Oximetry 100 Oxygen Delivery Method 12/13/23 20:17 12/13/23 20:30 12/13/23 20:31 Temperature Pulse Rate 89 85 Respiratory Rate Blood Pressure 90/52 L Pulse Oximetry 98 97 Oxygen Delivery Method 12/13/23 20:45 12/13/23 20:45 12/13/23 20:47 Temperature Pulse Rate 85 83 Respiratory Rate Blood Pressure 78/48 L Pulse Oximetry 99 99 Oxygen Delivery Method 12/13/23 20:47 12/13/23 21:00 12/13/23 21:00 Temperature Pulse Rate 84 Respiratory Rate Blood Pressure 83/51 L 84/52 L Pulse Oximetry 99 Oxygen Delivery Method 12/13/23 21:15 12/13/23 21:15 12/13/23 21:30 Temperature Pulse Rate 95 H 91 H Respiratory Rate 22 Blood Pressure 80/49 L Pulse Oximetry 98 99 Oxygen Delivery Method Room Air 12/13/23 21:30 12/13/23 21:35 12/13/23 21:35 Temperature Pulse Rate 90 Respiratory Rate Blood Pressure 72/48 L 79/63 L Pulse Oximetry 99 Oxygen Delivery Method 12/13/23 21:45 12/13/23 21:48 12/13/23 21:48 Temperature Pulse Rate 90 99 H Respiratory Rate Blood Pressure 100/52 L Pulse Oximetry 100 100 Oxygen Delivery Method 12/13/23 21:50 12/13/23 21:50 12/13/23 21:55 Temperature Pulse Rate 94 H 90 Respiratory Rate Blood Pressure 106/53 L Pulse Oximetry 99 99 Oxygen Delivery Method 12/13/23 21:55 12/13/23 21:59 12/13/23 21:59 Temperature Pulse Rate 89 Respiratory Rate 14 Blood Pressure 105/51 L 90/45 L Pulse Oximetry 99 Oxygen Delivery Method 12/13/23 22:00 12/13/23 22:00 12/13/23 22:05 Temperature Pulse Rate 87 86 Respiratory Rate 11 L 6 L Blood Pressure 90/52 L Pulse Oximetry 99 99 Oxygen Delivery Method 12/13/23 22:05 12/13/23 22:10 12/13/23 22:10 Temperature Pulse Rate 87 Respiratory Rate 9 L Blood Pressure 90/51 L 95/52 L Pulse Oximetry 96 Oxygen Delivery Method 12/13/23 22:15 12/13/23 22:15 12/13/23 22:20 Temperature Pulse Rate 86 90 Respiratory Rate 13 27 H Blood Pressure 95/54 L Pulse Oximetry 99 97 Oxygen Delivery Method 12/13/23 22:20 12/13/23 22:25 12/13/23 22:25 Temperature Pulse Rate 92 H Respiratory Rate 14 Blood Pressure 95/50 L 97/50 L Pulse Oximetry 97 Oxygen Delivery Method 12/13/23 22:30 12/13/23 22:30 12/13/23 22:35 Temperature Pulse Rate 91 H 101 H Respiratory Rate 12 9 L Blood Pressure 92/54 L Pulse Oximetry 98 96 Oxygen Delivery Method 12/13/23 22:35 12/13/23 22:40 12/13/23 22:40 Temperature Pulse Rate 97 H Respiratory Rate 13 Blood Pressure 91/50 L 96/55 L Pulse Oximetry 96 Oxygen Delivery Method 12/13/23 22:45 12/13/23 22:45 12/13/23 22:50 Temperature Pulse Rate 93 H 97 H Respiratory Rate 14 14 Blood Pressure 93/54 L Pulse Oximetry 96 96 Oxygen Delivery Method 12/13/23 22:50 12/13/23 22:55 12/13/23 22:55 Temperature Pulse Rate 102 H Respiratory Rate 12 Blood Pressure 99/57 L 92/52 L Pulse Oximetry 97 Oxygen Delivery Method 12/13/23 22:58 12/13/23 23:00 12/13/23 23:01 Temperature Pulse Rate 107 H 114 H Respiratory Rate 20 31 H Blood Pressure Pulse Oximetry 97 94 94 Oxygen Delivery Method Room Air 12/13/23 23:01 12/13/23 23:15 12/13/23 23:15 Temperature Pulse Rate 108 H Respiratory Rate 15 Blood Pressure 88/60 L 90/54 L Pulse Oximetry 97 Oxygen Delivery Method 12/13/23 23:30 12/13/23 23:30 12/13/23 23:45 Temperature Pulse Rate 107 H Respiratory Rate 18 Blood Pressure 87/52 L 89/53 L Pulse Oximetry 99 Oxygen Delivery Method 12/13/23 23:45 12/14/23 00:00 12/14/23 00:00 Temperature Pulse Rate 108 H 109 H Respiratory Rate 18 22 Blood Pressure 79/45 L Pulse Oximetry 100 97 Oxygen Delivery Method 12/14/23 00:04 12/14/23 00:04 12/14/23 00:07 Temperature Pulse Rate 105 H 99 H Respiratory Rate 18 22 Blood Pressure 99/54 L 98/58 L Pulse Oximetry 99 97 Oxygen Delivery Method Room Air 12/14/23 00:15 12/14/23 00:15 Temperature Pulse Rate 109 H Respiratory Rate 27 H Blood Pressure 89/58 L Pulse Oximetry 99 Oxygen Delivery Method MDM - Arrhythmia/Palpitations Lab Data 12/13/23 17:35 12/13/23 17:35 Labs: Lab Results 12/13/23 12/13/23 12/13/23 Range/Units 17:35 17:46 20:09 WBC 4.8 (4.5-11.0) X10^3/uL RBC 4.44 (4.0-5.2) X10^6/uL Hgb 14.5 (12.0-16.0) g/dL Hct 41.4 (36-46) % MCV 93.1 (80-100) fL MCH 32.6 (26-34) PG MCHC 35.0 (30-36) % RDW 13.8 (11.6-14.8) % Plt Count 274 (150-400) X10^3/uL Neut % (Auto) 39.4 L (50-75) % Lymph % (Auto) 45.1 H (25-40) % [place] % (Auto) 14.6 H (3-14) % Eos % (Auto) 0.0 L (2-4) % Baso % (Auto) 0.9 (0-2) % Neut # (Auto) 1900 (5580-2660) /uL Lymph # (Auto) 2100 (9984-1990) /uL [place] # (Auto) 700 (0-900) /uL Eos # (Auto) 0 (0-450) /uL Baso # (Auto) 0 (0-100) /uL PT 10.5 (9.4-12.5) SECONDS INR 0.9 (0.9-1.3) Sodium 137 (137-145) mmol/L Potassium 3.9 (3.4-5.1) mmol/L Chloride 96 L (98-107) mmol/L Carbon Dioxide 26 (22-32) mmol/L BUN 9 (7-17) mg/dL Creatinine 1.69 H (0.52-1.04) mg/dL Estimated GFR 40 L (>60) mL/min BUN/Creatinine Ratio 5.3 L (6-22) Glucose 94 (70-100) mg/dL Lactate 3.6 H (0.7-2.1) mmol/L Calcium 10.1 (8.4-10.2) mg/dL Magnesium 2.3 (1.6-2.3) mg/dL Total Bilirubin 0.5 (0.2-1.3) mg/dL AST 54 H (14-36) IU/L ALT 32 (<35) IU/L Alkaline Phosphatase 80 (38-126) U/L Ammonia < 9 L (9-30) umol/L Total Creatine Kinase 77 (30-135) U/L Troponin I 0.019 (0.01-0.034) ng/mL NT-Pro-B Natriuret Pep 137 H (<125) pg/mL Total Protein 8.5 H (6.3-8.2) g/dL Albumin 4.8 (3.5-5.0) g/dL Globulin 3.7 (1.7-4.1) g/dL Albumin/Globulin Ratio 1.3 (1.0-2.8) Procalcitonin 0.05 (<0.5) ng/mL TSH 1.60 (0.47-4.68) uIU/mL Urine Color Yellow Urine Appearance Clear Urine pH 6.5 (4.5-8.0) Ur Specific [place] <=1.005 (1.000-1.035) Urine Protein Negative (Negative) Urine Glucose (UA) 2+ H (Negative) g/dL Urine Ketones Negative (NEGATIVE) Urine Occult Blood Negative (Negative) Urine Nitrate Negative (Negative) Urine Bilirubin Negative (NEGATIVE) Urine Urobilinogen 0.2 (0.2) E.U./dL Ur Leukocyte Esterase Negative (NEGATIVE) Urine RBC None seen (0-5/HPF) Urine WBC None seen (0-5/HPF) Ur Squamous Epith Cells None seen (0-5/HPF) Urine Bacteria None seen (None) Ur Culture Indicated? Cult not indicated Vol Urine Centrifuged 10ml (spun) Urine Test Negative (Negative) U Opiates 300ng/mL cut Negative (Negative) Ur Oxycodone Screen Negative (Negative) Urine Methadone Screen Negative (Negative) Ur Barbiturates Screen Negative (Negative) U Tricyclic Antidepress Negative (Negative) Ur Phencyclidine Scrn Negative (Negative) Ur Amphetamines Screen Negative (Negative) U Methamphetamines Scrn Negative (Negative) Ur MDMA Scrn (Ecstasy) Negative (Negative) U Benzodiazepines Scrn Negative (Negative) Urine Cocaine Screen Negative (Negative) U Marijuana (THC) Screen Negative (Negative) Urine Specific [place] (Normal) Ethyl Alcohol 333 H ( - 10) mg/dL Ur Creatinine (Normal) 12/13/23 12/13/23 Range/Units 20:09 23:10 WBC (4.5-11.0) X10^3/uL RBC (4.0-5.2) X10^6/uL Hgb (12.0-16.0) g/dL Hct (36-46) % MCV (80-100) fL MCH (26-34) PG MCHC (30-36) % RDW (11.6-14.8) % Plt Count (150-400) X10^3/uL Neut % (Auto) (50-75) % Lymph % (Auto) (25-40) % [place] % (Auto) (3-14) % Eos % (Auto) (2-4) % Baso % (Auto) (0-2) % Neut # (Auto) (4509-6470) /uL Lymph # (Auto) (2012-4955) /uL [place] # (Auto) (0-900) /uL Eos # (Auto) (0-450) /uL Baso # (Auto) (0-100) /uL PT (9.4-12.5) SECONDS INR (0.9-1.3) Sodium (137-145) mmol/L Potassium (3.4-5.1) mmol/L Chloride (98-107) mmol/L Carbon Dioxide (22-32) mmol/L BUN (7-17) mg/dL Creatinine (0.52-1.04) mg/dL Estimated GFR (>60) mL/min BUN/Creatinine Ratio (6-22) Glucose (70-100) mg/dL Lactate 2.4 H (0.7-2.1) mmol/L Calcium (8.4-10.2) mg/dL Magnesium (1.6-2.3) mg/dL Total Bilirubin (0.2-1.3) mg/dL AST (14-36) IU/L ALT (<35) IU/L Alkaline Phosphatase (38-126) U/L Ammonia (9-30) umol/L Total Creatine Kinase (30-135) U/L Troponin I (0.01-0.034) ng/mL NT-Pro-B Natriuret Pep (<125) pg/mL Total Protein (6.3-8.2) g/dL Albumin (3.5-5.0) g/dL Globulin (1.7-4.1) g/dL Albumin/Globulin Ratio (1.0-2.8) Procalcitonin (<0.5) ng/mL TSH (0.47-4.68) uIU/mL Urine Color Urine Appearance Urine pH Normal (4.5-8.0) Ur Specific [place] (1.000-1.035) Urine Protein (Negative) Urine Glucose (UA) (Negative) g/dL Urine Ketones (NEGATIVE) Urine Occult Blood (Negative) Urine Nitrate (Negative) Urine Bilirubin (NEGATIVE) Urine Urobilinogen (0.2) E.U./dL Ur Leukocyte Esterase (NEGATIVE) Urine RBC (0-5/HPF) Urine WBC (0-5/HPF) Ur Squamous Epith Cells (0-5/HPF) Urine Bacteria (None) Ur Culture Indicated? Vol Urine Centrifuged Urine Test (Negative) U Opiates 300ng/mL cut (Negative) Ur Oxycodone Screen (Negative) Urine Methadone Screen (Negative) Ur Barbiturates Screen (Negative) U Tricyclic Antidepress (Negative) Ur Phencyclidine Scrn (Negative) Ur Amphetamines Screen (Negative) U Methamphetamines Scrn (Negative) Ur MDMA Scrn (Ecstasy) (Negative) U Benzodiazepines Scrn (Negative) Urine Cocaine Screen (Negative) U Marijuana (THC) Screen (Negative) Urine Specific [place] Normal (Normal) Ethyl Alcohol ( - 10) mg/dL Ur Creatinine Normal (Normal) Imaging Data Chest x-ray: Radiologist's Impresson: PROCEDURE: XR CHEST 1V INDICATIONS: palpitations TECHNIQUE: One view of the chest was acquired. COMPARISON: [facility], CR, XR CHEST 1V, 09/20/2023, 12:36. FINDINGS: Surgical changes and devices: None. Lungs and pleura: Lungs are clear. No pleural effusions or pneumothorax. Mediastinum: Mediastinal contours appear normal. Heart size is normal. Bones and chest wall: No suspicious bony lesions. Overlying soft tissues appear unremarkable. Posttraumatic appearance of left humeral head IMPRESSION: No acute cardiopulmonary abnormality is seen. Remote injury to the left shoulder. Dictated by: Alejo Baez M.D. on 12/13/2023 at 16:53 ECG Data Interpretation: Sinus rhythm rate 88 RI interval 154 QRS 84 QTC 496 mild artifact voltage similar to previous no acute ischemia MDM Narrative Medical decision making narrative: MDM CC: Heart palpitations, alcohol intoxication Complicating co-morbidities: Congestive heart failure EF 25%, CVA, alcohol dependence, anxiety Corroborating data: [ ] Data collected from: [ ] Medical records reviewed: Admission in September 2023 Differential considered: Cardiogenic shock septic shock dehydration Exam documented above, pertinent findings include: Patient awake alert oriented appears well sitting upright conversational, no evidence of peripheral edema or fluid overload Lab Test results independently reviewed as above. Pertinent findings: Lactate 3.6 WBC 4.8, hemoglobin 14.5, hematocrit 41.4, platelets 274, sodium 137, 3 potassium 3.9, chloride 96, carbon dioxide 26, BUN 9, creatinine 1.69 previously 0.95, glucose 94, AST 54, ALT 32, alk-phos 80, bilirubin 0.5 BNP 137, troponin 0.019 Independently reviewed EKG as above no ischemic changes Imaging studies independently reviewed: Chest x-ray does does not show any pneumonia or fluid overload Consultations: [ ] Treatments: 1 L bolus then 2 x500 bolus, Zosyn, Levophed Re-evaluations: Discussion: Patient 38-year-old female with history of congestive heart failure alcohol dependence presenting to day with heart palpitations. She is noted to be persistently hypotensive in the emergency department but surprisingly awake alert when oriented. She states that she is little dizzy and lightheaded when she stands up. She did walk to the bathroom but she did not feel quite right. Initially she was given small boluses of fluid due to poor ejection fraction she responded well. She does not appear fluid overloaded she has not having complications from it. However blood pressure continues to be low with a map less than 65. Levophed was started and central line placed. During central line placement IJ was noted to be very compressible. With increased creatinine hypotension the patient may be dehydrated. She is does not have fever or leukocytosis. She has not having any sort of alert infectious symptoms. She is covered with antibiotics and blood cultures are pending. With increase in blood pressure medications hypotension may be related to that as well. She surprisingly appears well despite elevated lactate and hypotension. She is symptomatic, she did ambulate to the restroom and says that she dizzy and lightheaded. She has not passed out. Dr. Bhagat updated on patient's symptoms test results and accepts patient Critical Care Time Critical Care Time Critical Care Time: Yes Total Critical Care Time: 45 Attestation: The high probability of a clinically significant, sudden or life threatening deterioration of the [cardiovascular] system(s) required my full and direct attention, intervention and personal management. The aggregate critical care time was [45] minutes. This time is in addition to time spent performing reported procedures but includes the following: [x] Data Review and interpretation [x] Patient assessment and monitoring of vital signs [x] Documentation [x] Medication orders and management Discharge Plan Departure Patient Disposition: Admitted As Inpatient Clinical Impression: SALEEM (acute kidney injury), Shock
[2023-12-13 19:02] LABS: NT-proBNP (BNP-Adult 18+) 137 pg/mL (<125)
[2023-12-13] MEDS: SODIUM CHLORIDE 0.9% 500 ML 1000 ML IV (19:54)
[2023-12-13] MEDS: LORazepam 2 MG/ML INJ 1 MG IV (19:55)
[2023-12-13 20:25] LABS: Appearance Urine UA CLEAR; Bilirubin Urine UA NEGATIVE (NEGATIVE); Color Urine UA YELLOW; Glucose Urine UA 2+ g/dL (Negative); Ketones Urine UA NEGATIVE (NEGATIVE); Leukocyte Esterase Urine UA NEGATIVE (NEGATIVE); Nitrite Urine UA NEGATIVE (Negative); Occult Blood Urine UA NEGATIVE (Negative); Protein Urine UA NEGATIVE (Negative); Specific Gravity Urine UA <=1.005 (1.000-1.035); Urobilinogen Urine UA 0.2 E.U./dL (0.2)
[2023-12-13 20:26] LABS: pH Urine UA 6.5 (4.5-8.0)
[2023-12-13 20:33] LABS: UR Morphine/Opiate cutoff 300 Negative (Negative); Ur Creatinine Normal (Normal); Ur Specific Gravity Normal (Normal); Urine Amphetamines Negative (Negative); Urine Barbiturates Negative (Negative); Urine Benzodiazepines Negative (Negative); Urine Cocaine Negative (Negative); Urine MDMA Negative (Negative); Urine Methadone Negative (Negative); Urine Methamphetamines Negative (Negative); Urine Oxycodone Negative (Negative); Urine Phencyclidine Negative (Negative); Urine Tetrahydrocannabinol Negative (Negative); Urine Tricyclic Antidepressant Negative (Negative); Urine pH Normal (Normal)
[2023-12-13 20:43] LABS: Urine Volume 10mL (spun)
[2023-12-13 20:44] LABS: Bacteria Urine None Seen; Culture Indicated Urine Cult Not Indicated; RBC Urine None Seen (0-5/HPF); Squamous Epithelial Cell Urine None Seen (0-5/HPF); WBC Urine None Seen (0-5/HPF)
[2023-12-13 21:02] LABS: Lactate (Lactic Acid) 3.6 mmol/L (0.7-2.1)
[2023-12-13 21:20] LABS: Procalcitonin 0.05 ng/mL (<0.5)
[2023-12-13] MEDS: NOREPINEPHRINE BITARTRATE/D5W 4 MG/250 ML PLAST..BAG 26.535 MG IV (21:29)
--- NOTE | 2023-12-13 22:19 | DI.RAD.S_ITS ---
PROCEDURE: XR CHEST 1V INDICATIONS: central line placement TECHNIQUE: One view of the chest was acquired. COMPARISON: [facility], CR, XR CHEST 1V, 12/13/2023, 17:39. [facility], CR, XR CHEST 1V, 09/20/2023, 12:36. FINDINGS: Surgical changes and devices: Central line has been placed from right-sided approach extending into the atrial caval junction.. Lungs and pleura: Lungs are clear. No pleural effusions or pneumothorax. Mediastinum: Mediastinal contours appear normal. Heart size is normal. Bones and chest wall: No suspicious bony lesions. Overlying soft tissues appear unremarkable. IMPRESSION: No pneumothorax after right-sided central line placement as discussed. Dictated by: Roberto Carlos Eckert M.D. on 12/13/2023 at 22:34 Approved by: Roberto Carlos Eckert M.D. on 12/13/2023 at 22:35
[2023-12-13 22:29] LABS: Pregnancy Test Urine Negative (Negative)
[2023-12-13 22:30] LABS: Reflexed Lactate in 2 Hours Y
--- NOTE | 2023-12-13 22:30 | PC.NURSE ---
delay in medications administration due to need for second line placed and levophed being given. 2nd peripheral IV could not be obtained, nurse was unable to locate appropriate vein, use of ultrasound was requested, provider to come to room and start central line. then wait for chest xray verifying correct placement of central line. antibiotics to be given at soonest available time.
[2023-12-13] MEDS: PIPERACILLIN/TAZO 4.5 GM in SODIUM CHLORIDE 0.9% 100 ML IV (22:46)
[2023-12-13] MEDS: SODIUM CHLORIDE 0.9% 1,000 ML 125 ML IV (22:58)
--- NOTE | 2023-12-13 23:13 | PC.NURSE ---
late entry: immediately prior to provider entering room to place central line, patient and mother were stating that on she had eaten a turkey sandwich for lunch that tasted off and she had 5 episodes of vomiting afterwards. patient states she thinks she may have had food poisoning that day. provider notified.
[2023-12-13] MEDS: LORazepam 2 MG/ML INJ IV (23:26)
[2023-12-13 23:32] LABS: Lactate (Lactic Acid) 2.4 mmol/L (0.7-2.1)
--- NOTE | 2023-12-13 23:46 | PC.NURSE ---
bedside report complete; care assumed.
[2023-12-14] VITALS (108 sets, daily range): BP systolic 79–120; BP diastolic 45–69; PULSE 78–118; RESP 7–27; TEMP 36.6–37.4; O2SAT 83–100; BMI 23.0
[2023-12-14 00:49] LABS: Reflexed Lactate in 2 Hours Y
--- NOTE | 2023-12-14 01:09 | PM.HP.1 ---
History of Present Illness History of Present Illness Date Patient Seen: 12/14/23 Time Patient Seen: 01:09 Chief complaint: Heart Palpitations Narrative: The pt is a 38 yo female who presents to the ER with c/o heart palpations at home today which started around 1530 today when she was resting at home. The pt has a hx of alcoholism and previous alcoholic cardiomyopathy with documented EF of 25% which has improved last month to an EF of 55%. The pt reports that her home meds has recently been increased, metoprolol, entresto, and lasix 80 mg in the morning and 40 qPM. In the ER she was found ot be very hypotensive and was given 2 lites of NS and started on Levophed. She was asymptomatic during my visit, without complaints. Naina has been drinking wine today and only has been drinking alcohol for the past 3 days and prior to that she was sober for the past 90 days in . 3 days ago she reports having N/V due to eating a bad sandwich but no diarrhea or vomiting since 2 days ago. 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 Leukocytopenia GERD (gastroesophageal reflux disease) Caloric malnutrition Anorexia nervosa Neuropathy Depression Anxiety Alcoholism in remission Ankle pain, right Alcoholism Anorexia Surgical History History of total hip arthroplasty Social History household members: none Smoking Status: Current some day smoker Meds Home Medications and Allergies Home Medications Medication Instructions Recorded Confirmed Type thiamine HCl (vitamin B1) 100 mg 100 mg PO DAILY #90 tabs 12/31/22 10/03/23 Rx tablet cholecalciferol (vitamin D3) 25 2,000 unit PO DAILY #0 tabs 02/07/23 10/03/23 History mcg (1,000 unit) tablet (Vitamin D3) mecobalamin (vitamin B12) 500 mcg 500 mcg PO DAILY 02/07/23 10/03/23 History chewable tablet oxycodone 5 mg tablet 5 mg PO Q6H PRN pain #14 tabs 02/07/23 10/03/23 Rx olanzapine 2.5 mg tablet 2.5 mg PO DAILY 02/18/23 10/03/23 History spironolactone 50 mg tablet 50 mg PO DAILY #90 tabs 04/10/23 10/03/23 Rx furosemide 40 mg tablet 40 mg PO BID #120 tabs 04/17/23 10/03/23 Rx magnesium chloride 71.5 mg 71.5 mg PO BID #30 tabs 09/20/23 10/03/23 Rx (magnesium chloride) tablet,delayed release (Slow-Mag) empagliflozin 10 mg tablet 10 mg PO DAILY 09/23/23 10/03/23 History (Jardiance) lorazepam 1 mg tablet (Ativan) 1 mg PO PRN PRN Anxiety 09/23/23 10/03/23 History alendronate 70 mg tablet See Rx Instructions .Route 09/30/23 10/03/23 Rx .COMPLEX #12 tabs baclofen 10 mg tablet 10 mg PO BID #180 tabs 10/03/23 10/03/23 Rx duloxetine 30 mg capsule,delayed 30 mg PO DAILY #90 caps 10/03/23 10/03/23 Rx release duloxetine 60 mg capsule,delayed 60 mg PO DAILY #90 caps 10/03/23 10/03/23 Rx release sprinkle sacubitril 24 mg-valsartan 26 mg 1 tab PO BID #180 tabs 10/22/23 Rx tablet (Entresto) Allergies Allergy/AdvReac Type Severity Reaction Status Date / Time gabapentin AdvReac Intermediate Mental Verified 12/13/23 21:19 status changes Exam Vital Signs (past 8 hours): - 12/13/23 17:26 12/13/23 17:49 12/13/23 18:00 Temperature 96.5 F L Pulse Rate 105 H 86 88 Respiratory Rate 20 16 16 Blood Pressure 86/54 L Pulse Oximetry 98 100 97 Oxygen Delivery Method Room Air 12/13/23 18:00 12/13/23 18:16 12/13/23 18:16 Temperature Pulse Rate 93 H Respiratory Rate 25 H Blood Pressure 89/54 L 86/47 L Pulse Oximetry 97 Oxygen Delivery Method 12/13/23 18:30 12/13/23 18:30 12/13/23 18:45 Temperature Pulse Rate 82 79 Respiratory Rate 21 23 Blood Pressure 97/55 L Pulse Oximetry 100 99 Oxygen Delivery Method Room Air 12/13/23 18:45 12/13/23 19:00 12/13/23 19:00 Temperature Pulse Rate 72 Respiratory Rate 11 L Blood Pressure 87/52 L 89/54 L Pulse Oximetry 99 Oxygen Delivery Method 12/13/23 19:15 12/13/23 19:15 12/13/23 19:30 Temperature Pulse Rate 77 78 Respiratory Rate 12 10 L Blood Pressure 96/52 L Pulse Oximetry 98 100 Oxygen Delivery Method 12/13/23 19:30 12/13/23 19:45 12/13/23 19:45 Temperature Pulse Rate 76 Respiratory Rate 8 L Blood Pressure 97/50 L 94/51 L Pulse Oximetry 98 Oxygen Delivery Method 12/13/23 20:00 12/13/23 20:00 12/13/23 20:13 Temperature Pulse Rate 82 82 Respiratory Rate 29 H Blood Pressure 93/54 L Pulse Oximetry 99 100 Oxygen Delivery Method 12/13/23 20:13 12/13/23 20:15 12/13/23 20:15 Temperature Pulse Rate 82 Respiratory Rate Blood Pressure 99/53 L 95/51 L Pulse Oximetry 100 Oxygen Delivery Method 12/13/23 20:17 12/13/23 20:30 12/13/23 20:31 Temperature Pulse Rate 89 85 Respiratory Rate Blood Pressure 90/52 L Pulse Oximetry 98 97 Oxygen Delivery Method 12/13/23 20:45 12/13/23 20:45 12/13/23 20:47 Temperature Pulse Rate 85 83 Respiratory Rate Blood Pressure 78/48 L Pulse Oximetry 99 99 Oxygen Delivery Method 12/13/23 20:47 12/13/23 21:00 12/13/23 21:00 Temperature Pulse Rate 84 Respiratory Rate Blood Pressure 83/51 L 84/52 L Pulse Oximetry 99 Oxygen Delivery Method 12/13/23 21:15 12/13/23 21:15 12/13/23 21:30 Temperature Pulse Rate 95 H 91 H Respiratory Rate 22 Blood Pressure 80/49 L Pulse Oximetry 98 99 Oxygen Delivery Method Room Air 12/13/23 21:30 12/13/23 21:35 12/13/23 21:35 Temperature Pulse Rate 90 Respiratory Rate Blood Pressure 72/48 L 79/63 L Pulse Oximetry 99 Oxygen Delivery Method 12/13/23 21:45 12/13/23 21:48 12/13/23 21:48 Temperature Pulse Rate 90 99 H Respiratory Rate Blood Pressure 100/52 L Pulse Oximetry 100 100 Oxygen Delivery Method 12/13/23 21:50 12/13/23 21:50 12/13/23 21:55 Temperature Pulse Rate 94 H 90 Respiratory Rate Blood Pressure 106/53 L Pulse Oximetry 99 99 Oxygen Delivery Method 12/13/23 21:55 12/13/23 21:59 12/13/23 21:59 Temperature Pulse Rate 89 Respiratory Rate 14 Blood Pressure 105/51 L 90/45 L Pulse Oximetry 99 Oxygen Delivery Method 12/13/23 22:00 12/13/23 22:00 12/13/23 22:05 Temperature Pulse Rate 87 86 Respiratory Rate 11 L 6 L Blood Pressure 90/52 L Pulse Oximetry 99 99 Oxygen Delivery Method 12/13/23 22:05 12/13/23 22:10 12/13/23 22:10 Temperature Pulse Rate 87 Respiratory Rate 9 L Blood Pressure 90/51 L 95/52 L Pulse Oximetry 96 Oxygen Delivery Method 12/13/23 22:15 12/13/23 22:15 12/13/23 22:20 Temperature Pulse Rate 86 90 Respiratory Rate 13 27 H Blood Pressure 95/54 L Pulse Oximetry 99 97 Oxygen Delivery Method 12/13/23 22:20 12/13/23 22:25 12/13/23 22:25 Temperature Pulse Rate 92 H Respiratory Rate 14 Blood Pressure 95/50 L 97/50 L Pulse Oximetry 97 Oxygen Delivery Method 12/13/23 22:30 12/13/23 22:30 12/13/23 22:35 Temperature Pulse Rate 91 H 101 H Respiratory Rate 12 9 L Blood Pressure 92/54 L Pulse Oximetry 98 96 Oxygen Delivery Method 12/13/23 22:35 12/13/23 22:40 12/13/23 22:40 Temperature Pulse Rate 97 H Respiratory Rate 13 Blood Pressure 91/50 L 96/55 L Pulse Oximetry 96 Oxygen Delivery Method 12/13/23 22:45 12/13/23 22:45 12/13/23 22:50 Temperature Pulse Rate 93 H 97 H Respiratory Rate 14 14 Blood Pressure 93/54 L Pulse Oximetry 96 96 Oxygen Delivery Method 12/13/23 22:50 12/13/23 22:55 12/13/23 22:55 Temperature Pulse Rate 102 H Respiratory Rate 12 Blood Pressure 99/57 L 92/52 L Pulse Oximetry 97 Oxygen Delivery Method 12/13/23 22:58 12/13/23 23:00 12/13/23 23:01 Temperature Pulse Rate 107 H 114 H Respiratory Rate 20 31 H Blood Pressure Pulse Oximetry 97 94 94 Oxygen Delivery Method Room Air 12/13/23 23:01 12/13/23 23:15 12/13/23 23:15 Temperature Pulse Rate 108 H Respiratory Rate 15 Blood Pressure 88/60 L 90/54 L Pulse Oximetry 97 Oxygen Delivery Method 12/13/23 23:30 12/13/23 23:30 12/13/23 23:45 Temperature Pulse Rate 107 H Respiratory Rate 18 Blood Pressure 87/52 L 89/53 L Pulse Oximetry 99 Oxygen Delivery Method 12/13/23 23:45 12/14/23 00:00 12/14/23 00:00 Temperature Pulse Rate 108 H 109 H Respiratory Rate 18 22 Blood Pressure 79/45 L Pulse Oximetry 100 97 Oxygen Delivery Method 12/14/23 00:04 12/14/23 00:04 12/14/23 00:07 Temperature Pulse Rate 105 H 99 H Respiratory Rate 18 22 Blood Pressure 99/54 L 98/58 L Pulse Oximetry 99 97 Oxygen Delivery Method Room Air 12/14/23 00:15 12/14/23 00:15 Temperature Pulse Rate 109 H Respiratory Rate 27 H Blood Pressure 89/58 L Pulse Oximetry 99 Oxygen Delivery Method Oxygen Delivery Method Room Air Const General: cooperative, healthy appearing and comfortable Nutritional Appearance: average body habitus Orientation: alert, awake and oriented x3 Resp Effort & Inspection: normal respiratory effort Auscultation: clear to auscultation bilaterally Cardio Rate: regular rate Rhythm: regular rhythm Other: BP 116/78 GI Auscultation: normal bowel sounds Extrem General: normal to inspection Objective Labs 12/13/23 17:35 12/13/23 17:35 Labs: Laboratory Results - last 24 hr 12/13/23 12/13/23 12/13/23 17:35 17:46 20:09 WBC 4.8 RBC 4.44 Hgb 14.5 Hct 41.4 MCV 93.1 MCH 32.6 MCHC 35.0 RDW 13.8 Plt Count 274 Neut % (Auto) 39.4 L Lymph % (Auto) 45.1 H [place] % (Auto) 14.6 H Eos % (Auto) 0.0 L Baso % (Auto) 0.9 Neut # (Auto) 1900 Lymph # (Auto) 2100 [place] # (Auto) 700 Eos # (Auto) 0 Baso # (Auto) 0 PT 10.5 INR 0.9 Sodium 137 Potassium 3.9 Chloride 96 L Carbon Dioxide 26 BUN 9 Creatinine 1.69 H Estimated GFR 40 L BUN/Creatinine Ratio 5.3 L Glucose 94 Lactate 3.6 H Calcium 10.1 Magnesium 2.3 Total Bilirubin 0.5 AST 54 H ALT 32 Alkaline Phosphatase 80 Ammonia < 9 L Total Creatine Kinase 77 Troponin I 0.019 NT-Pro-B Natriuret Pep 137 H Total Protein 8.5 H Albumin 4.8 Globulin 3.7 Albumin/Globulin Ratio 1.3 Procalcitonin 0.05 TSH 1.60 Urine Color Yellow Urine Appearance Clear Urine pH 6.5 Ur Specific [place] <=1.005 Urine Protein Negative Urine Glucose (UA) 2+ H Urine Ketones Negative Urine Occult Blood Negative Urine Nitrate Negative Urine Bilirubin Negative Urine Urobilinogen 0.2 Ur Leukocyte Esterase Negative Urine RBC None seen Urine WBC None seen Ur Squamous Epith Cells None seen Urine Bacteria None seen Ur Culture Indicated? Cult not indicated Vol Urine Centrifuged 10ml (spun) Urine Test Negative U Opiates 300ng/mL cut Negative Ur Oxycodone Screen Negative Urine Methadone Screen Negative Ur Barbiturates Screen Negative U Tricyclic Antidepress Negative Ur Phencyclidine Scrn Negative Ur Amphetamines Screen Negative U Methamphetamines Scrn Negative Ur MDMA Scrn (Ecstasy) Negative U Benzodiazepines Scrn Negative Urine Cocaine Screen Negative U Marijuana (THC) Screen Negative Urine Specific [place] Ethyl Alcohol 333 H Ur Creatinine 12/13/23 12/13/23 20:09 23:10 WBC RBC Hgb Hct MCV MCH MCHC RDW Plt Count Neut % (Auto) Lymph % (Auto) [place]oul[place] % (Auto) Eos % (Auto) Baso % (Auto) Neut # (Auto) Lymph # (Auto) [place] # (Auto) Eos # (Auto) Baso # (Auto) PT INR Sodium Potassium Chloride Carbon Dioxide BUN Creatinine Estimated GFR BUN/Creatinine Ratio Glucose Lactate 2.4 H Calcium Magnesium Total Bilirubin AST ALT Alkaline Phosphatase Ammonia Total Creatine Kinase Troponin I NT-Pro-B Natriuret Pep Total Protein Albumin Globulin Albumin/Globulin Ratio Procalcitonin TSH Urine Color Urine Appearance Urine pH Normal Ur Specific [place] Urine Protein Urine Glucose (UA) Urine Ketones Urine Occult Blood Urine Nitrate Urine Bilirubin Urine Urobilinogen Ur Leukocyte Esterase Urine RBC Urine WBC Ur Squamous Epith Cells Urine Bacteria Ur Culture Indicated? Vol Urine Centrifuged Urine Test U Opiates 300ng/mL cut Ur Oxycodone Screen Urine Methadone Screen Ur Barbiturates Screen U Tricyclic Antidepress Ur Phencyclidine Scrn Ur Amphetamines Screen U Methamphetamines Scrn Ur MDMA Scrn (Ecstasy) U Benzodiazepines Scrn Urine Cocaine Screen U Marijuana (THC) Screen Urine Specific [place] Normal Ethyl Alcohol Ur Creatinine Normal Assessment & Plan Assessment and plan (1) SALEEM (acute kidney injury): Status: Acute (2) Anxiety: Status: Acute (3) Mitral regurgitation: Qualifiers: Cardiac valve disease etiology: nonrheumatic Qualified Code(s): I34.0 - Nonrheumatic mitral (valve) insufficiency Status: Acute (4) HFrEF (heart failure with reduced ejection fraction): Status: Acute (5) Alcoholism: Status: Acute Plan Will admit the pt to the ICU since she is requiring Levophed presently, She was received 2 liters so far and will give another 500cc bolus and IVF continuous rate of 125 cc/hr. I feel that the pt's hypertension is probably related to overmedicated. Will hold her home meds at this time, but if becomes tachycardic will add back the metoprolol. There is no signs of infection at this time, but she does have an elevated LA of 2.4, will recheck per protocol. Since the pt is drinking alcohol again will place on alcohol withdrawal order set of [id number] although she does not appear to be in withdrawals. Her last dring of wine was at 1600 today .
[2023-12-14] MEDS: KETOROLAC 30 MG/ML VIAL IV (02:29)
[2023-12-14] MEDS: SODIUM CHLORIDE 0.9% 500 ML IV (02:30)
[2023-12-14 06:31] LABS: Hemoglobin 11.2 g/dL (12.0-16.0); Mean Corpuscular HGB Conc 34.9 % (30-36); Mean Corpuscular Hemoglobin 32.5 PG (26-34); Mean Corpuscular Volume 93.3 fL (80-100); Platelet Count 143 X10^3/uL (150-400); Red Blood Cell Count 3.43 X10^6/uL (4.0-5.2); Red Cell Distribution Width 14.1 % (11.6-14.8)
[2023-12-14 06:35] LABS: Add Manual Diff / Slide Review YES
[2023-12-14 06:36] LABS: White Blood Cell Count 1.9 X10^3/uL (4.5-11.0)
[2023-12-14 06:44] LABS: Alanine Aminotransferase 22 IU/L (<35); Albumin 3.5 g/dL (3.5-5.0); Albumin Globulin Ratio 1.3 (1.0-2.8); Alkaline Phosphatase 79 U/L (38-126); Aspartate Aminotransferase 37 IU/L (14-36); BUN Creatinine Ratio 10.5 (6-22); Bilirubin Total 0.4 mg/dL (0.2-1.3); Blood Urea Nitrogen 10 mg/dL (7-17); Calcium 7.8 mg/dL (8.4-10.2); Carbon Dioxide 28 mmol/L (22-32); Chloride 104 mmol/L (98-107); Estimated Glomerular Filt Rate > 60 mL/min (>60); Globulin 2.8 g/dL (1.7-4.1); Glucose 103 mg/dL (70-100); HEMOLYSIS < 15 (0-50); Magnesium 1.7 mg/dL (1.6-2.3); Potassium 3.4 mmol/L (3.4-5.1); Sodium 136 mmol/L (137-145); Total Protein 6.3 g/dL (6.3-8.2)
[2023-12-14 06:46] LABS: Prothrombin Time 10.9 SECONDS (9.4-12.5)
[2023-12-14 06:50] LABS: NT-proBNP (BNP-Adult 18+) 72 pg/mL (<125)
[2023-12-14 07:21] LABS: Neutrophils Absolute Manual 475 /uL (3000-5900); RBC Morphology Normal Morphology; Total Cells Counted 100
--- NOTE | 2023-12-14 08:23 | PM.PN.1 ---
Subjective Subjective Interval history: From night doctor: The pt is a 38 yo female who presents to the ER with c/o heart palpations at home today which started around 1530 today when she was resting at home. The pt has a hx of alcoholism and previous alcoholic cardiomyopathy with documented EF of 25% which has improved last month to an EF of 55%. The pt reports that her home meds has recently been increased, metoprolol, entresto, and lasix 80 mg in the morning and 40 qPM. In the ER she was found ot be very hypotensive and was given 2 lites of NS and started on Levophed. She was asymptomatic during my visit, without complaints. Naina has been drinking wine today and only has been drinking alcohol for the past 3 days and prior to that she was sober for the past 90 days in . 3 days ago she reports having N/V due to eating a bad sandwich but no diarrhea or vomiting since 2 days ago. She was transferred to ICU on a very small amount of norepinephrine for a map of 63. She notes that she does not recall much of the last 2 days. There was no indication of infection in the emergency department. She denies recent symptoms of cough or shortness a breath, diarrhea or urinary issues. Exam Vital Signs (past 8 hours): - 12/14/23 00:30 12/14/23 00:30 12/14/23 00:47 Pulse Rate 108 H 99 H Respiratory Rate 24 Blood Pressure 98/58 L Pulse Oximetry 99 97 Oxygen Delivery Method 12/14/23 00:49 12/14/23 00:49 12/14/23 01:00 Pulse Rate 95 H 100 H Respiratory Rate 26 H 13 Blood Pressure 116/62 Pulse Oximetry 100 99 Oxygen Delivery Method 12/14/23 01:00 12/14/23 01:15 12/14/23 01:15 Pulse Rate 114 H Respiratory Rate 19 Blood Pressure 108/59 L 103/59 L Pulse Oximetry 98 Oxygen Delivery Method 12/14/23 01:30 12/14/23 01:30 12/14/23 01:45 Pulse Rate 106 H 103 H Respiratory Rate 17 14 Blood Pressure 101/56 L Pulse Oximetry 99 100 Oxygen Delivery Method 12/14/23 01:45 12/14/23 02:00 12/14/23 02:00 Pulse Rate 101 H Respiratory Rate 13 Blood Pressure 119/65 120/61 Pulse Oximetry 99 Oxygen Delivery Method Room Air 12/14/23 02:15 12/14/23 02:15 12/14/23 02:30 Pulse Rate 101 H Respiratory Rate 12 Blood Pressure 113/60 111/60 Pulse Oximetry 98 Oxygen Delivery Method 12/14/23 02:30 12/14/23 02:45 12/14/23 02:45 Pulse Rate 105 H 108 H Respiratory Rate 13 9 L Blood Pressure 118/65 Pulse Oximetry 98 99 Oxygen Delivery Method 12/14/23 03:00 12/14/23 03:00 12/14/23 03:15 Pulse Rate 104 H 101 H Respiratory Rate 12 12 Blood Pressure 111/65 Pulse Oximetry 99 98 Oxygen Delivery Method 12/14/23 03:15 12/14/23 03:30 12/14/23 03:30 Pulse Rate 104 H Respiratory Rate 12 Blood Pressure 108/63 105/65 Pulse Oximetry 98 Oxygen Delivery Method 12/14/23 03:45 12/14/23 03:45 12/14/23 04:00 Pulse Rate 105 H 109 H Respiratory Rate 10 L 11 L Blood Pressure 106/63 Pulse Oximetry 95 95 Oxygen Delivery Method 12/14/23 04:00 12/14/23 04:16 12/14/23 04:30 Pulse Rate 118 H 111 H Respiratory Rate Blood Pressure 95/50 L Pulse Oximetry 96 97 Oxygen Delivery Method 12/14/23 04:30 12/14/23 04:45 12/14/23 04:45 Pulse Rate 104 H Respiratory Rate Blood Pressure 99/58 L 105/61 Pulse Oximetry 96 Oxygen Delivery Method 12/14/23 05:00 12/14/23 05:00 12/14/23 05:15 Pulse Rate 98 H Respiratory Rate Blood Pressure 102/58 L 101/58 L Pulse Oximetry 95 Oxygen Delivery Method 12/14/23 05:15 12/14/23 05:30 12/14/23 05:30 Pulse Rate 100 H 99 H Respiratory Rate Blood Pressure 107/57 L Pulse Oximetry 93 95 Oxygen Delivery Method 12/14/23 05:45 12/14/23 05:45 12/14/23 06:00 Pulse Rate 95 H Respiratory Rate 12 Blood Pressure 93/55 L 103/55 L Pulse Oximetry 94 Oxygen Delivery Method Room Air 12/14/23 06:00 12/14/23 06:15 12/14/23 06:30 Pulse Rate 96 H 104 H Respiratory Rate 16 17 Blood Pressure 101/56 L Pulse Oximetry 97 97 Oxygen Delivery Method 12/14/23 06:30 12/14/23 06:45 12/14/23 06:59 Pulse Rate 104 H 112 H 97 H Respiratory Rate 15 16 10 L Blood Pressure Pulse Oximetry 97 94 93 Oxygen Delivery Method Room Air 12/14/23 07:00 12/14/23 07:01 12/14/23 07:15 Pulse Rate 96 H 98 H Respiratory Rate 12 14 Blood Pressure 102/57 L Pulse Oximetry 94 95 Oxygen Delivery Method Room Air 12/14/23 07:30 12/14/23 07:30 12/14/23 07:45 Pulse Rate 95 H 90 Respiratory Rate 12 Blood Pressure 106/60 Pulse Oximetry 94 95 Oxygen Delivery Method Room Air Room Air 12/14/23 07:45 12/14/23 07:50 12/14/23 07:55 Pulse Rate 88 89 Respiratory Rate 11 L 8 L Blood Pressure 94/52 L Pulse Oximetry 96 97 Oxygen Delivery Method Room Air Oxygen Delivery Method Room Air Narrative Exam Narrative: NAD, alert and oriented. Fluent speech. Lungs are clear, normal rate and effort. Heart is regular, no murmur gallop or rub. Abdomen is soft, non distended. Extremities are free of edema. Objective Labs 12/14/23 06:10 12/14/23 06:10 Labs: Laboratory Results - last 24 hr 12/13/23 12/13/23 12/13/23 17:35 17:46 20:09 WBC 4.8 RBC 4.44 Hgb 14.5 Hct 41.4 MCV 93.1 MCH 32.6 MCHC 35.0 RDW 13.8 Plt Count 274 Neut % (Auto) 39.4 L Lymph % (Auto) 45.1 H Spink % (Auto) 14.6 H Eos % (Auto) 0.0 L Baso % (Auto) 0.9 Neut # (Auto) 1900 Lymph # (Auto) 2100 Spink # (Auto) 700 Eos # (Auto) 0 Baso # (Auto) 0 Total Counted Seg Neutrophils % Lymphocytes % (Manual) Monocytes % (Manual) Basophils % (Manual) Neutrophils # (Manual) RBC Morphology PT 10.5 INR 0.9 Sodium 137 Potassium 3.9 Chloride 96 L Carbon Dioxide 26 BUN 9 Creatinine 1.69 H Estimated GFR 40 L BUN/Creatinine Ratio 5.3 L Glucose 94 Lactate 3.6 H Calcium 10.1 Magnesium 2.3 Total Bilirubin 0.5 AST 54 H ALT 32 Alkaline Phosphatase 80 Ammonia < 9 L Total Creatine Kinase 77 Troponin I 0.019 NT-Pro-B Natriuret Pep 137 H Total Protein 8.5 H Albumin 4.8 Globulin 3.7 Albumin/Globulin Ratio 1.3 Procalcitonin 0.05 TSH 1.60 Urine Color Yellow Urine Appearance Clear Urine pH 6.5 Ur Specific [place] <=1.005 Urine Protein Negative Urine Glucose (UA) 2+ H Urine Ketones Negative Urine Occult Blood Negative Urine Nitrate Negative Urine Bilirubin Negative Urine Urobilinogen 0.2 Ur Leukocyte Esterase Negative Urine RBC None seen Urine WBC None seen Ur Squamous Epith Cells None seen Urine Bacteria None seen Ur Culture Indicated? Cult not indicated Vol Urine Centrifuged 10ml (spun) Urine Test Negative U Opiates 300ng/mL cut Negative Ur Oxycodone Screen Negative Urine Methadone Screen Negative Ur Barbiturates Screen Negative U Tricyclic Antidepress Negative Ur Phencyclidine Scrn Negative Ur Amphetamines Screen Negative U Methamphetamines Scrn Negative Ur MDMA Scrn (Ecstasy) Negative U Benzodiazepines Scrn Negative Urine Cocaine Screen Negative U Marijuana (THC) Screen Negative Urine Specific [place] Ethyl Alcohol 333 H Ur Creatinine 12/13/23 12/13/23 12/14/23 20:09 23:10 06:10 WBC 1.9 L* D RBC 3.43 L Hgb 11.2 L Hct 32.0 L MCV 93.3 MCH 32.5 MCHC 34.9 RDW 14.1 Plt Count 143 L Neut % (Auto) Not Reportable Lymph % (Auto) Not Reportable Spink % (Auto) Not Reportable Eos % (Auto) Not Reportable Baso % (Auto) Not Reportable Neut # (Auto) Lymph # (Auto) Not Reportable Spink # (Auto) Not Reportable Eos # (Auto) Baso # (Auto) Not Reportable Total Counted 100 Seg Neutrophils % 25.0 L Lymphocytes % (Manual) 68.0 H Monocytes % (Manual) 6.0 Basophils % (Manual) 1.0 Neutrophils # (Manual) 475 L RBC Morphology Normal morphology PT INR Sodium 136 L Potassium 3.4 Chloride 104 Carbon Dioxide 28 BUN 10 Creatinine 0.95 Estimated GFR > 60 BUN/Creatinine Ratio 10.5 Glucose 103 H Lactate 2.4 H 1.0 Calcium 7.8 L Magnesium 1.7 Total Bilirubin 0.4 AST 37 H ALT 22 Alkaline Phosphatase 79 Ammonia Total Creatine Kinase Troponin I NT-Pro-B Natriuret Pep 72 Total Protein 6.3 Albumin 3.5 Globulin 2.8 Albumin/Globulin Ratio 1.3 Procalcitonin TSH Urine Color Urine Appearance Urine pH Normal Ur Specific [place] Urine Protein Urine Glucose (UA) Urine Ketones Urine Occult Blood Urine Nitrate Urine Bilirubin Urine Urobilinogen Ur Leukocyte Esterase Urine RBC Urine WBC Ur Squamous Epith Cells Urine Bacteria Ur Culture Indicated? Vol Urine Centrifuged Urine Test U Opiates 300ng/mL cut Ur Oxycodone Screen Urine Methadone Screen Ur Barbiturates Screen U Tricyclic Antidepress Ur Phencyclidine Scrn Ur Amphetamines Screen U Methamphetamines Scrn Ur MDMA Scrn (Ecstasy) U Benzodiazepines Scrn Urine Cocaine Screen U Marijuana (THC) Screen Urine Specific [place] Normal Ethyl Alcohol Ur Creatinine Normal 12/14/23 06:30 WBC RBC Hgb Hct MCV MCH MCHC RDW Plt Count Neut % (Auto) Lymph % (Auto) Spink % (Auto) Eos % (Auto) Baso % (Auto) Neut # (Auto) Lymph # (Auto) Spink # (Auto) Eos # (Auto) Baso # (Auto) Total Counted Seg Neutrophils % Lymphocytes % (Manual) Monocytes % (Manual) Basophils % (Manual) Neutrophils # (Manual) RBC Morphology PT 10.9 INR 1.0 Sodium Potassium Chloride Carbon Dioxide BUN Creatinine Estimated GFR BUN/Creatinine Ratio Glucose Lactate Calcium Magnesium Total Bilirubin AST ALT Alkaline Phosphatase Ammonia Total Creatine Kinase Troponin I NT-Pro-B Natriuret Pep Total Protein Albumin Globulin Albumin/Globulin Ratio Procalcitonin TSH Urine Color Urine Appearance Urine pH Ur Specific [place] Urine Protein Urine Glucose (UA) Urine Ketones Urine Occult Blood Urine Nitrate Urine Bilirubin Urine Urobilinogen Ur Leukocyte Esterase Urine RBC Urine WBC Ur Squamous Epith Cells Urine Bacteria Ur Culture Indicated? 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 SALEEM, present on admission and active. 2. Hypotension (likely volume depletion), present on admission and active. 3. Cirrhosis. Present on admission and stable. 4. Alcohol use disorder with recent 3 day binge, present on admission and stable. 5. Chronic leukopenia, present on admission and active. 6. 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 She remains euvolemic, no dyspnea or edema. 7. Chronic depression anxiety, present on admission and active. 8. Chronic GERD and esophagitis, present on admission and stable. PLAN: -wean norepinephrine -small fluid boluses for map less than 65 -monitor for evidence of infection, follow up blood cultures. -symptomatic treatment for adverse effects of recent alcohol intake. Benzodiazepines as needed. -hold blood pressure lowering medications until she appears to improve including metoprolol and Entresto. Full resuscitation Proxy decision maker is mother Dispo: Likely discharge is 325 as long as blood pressure improves.
[2023-12-14] MEDS: NOREPINEPHRINE BITARTRATE/D5W 4 MG/250 ML PLAST..BAG 13.268 MG IV (08:24)
[2023-12-14] MEDS: THIAMINE 100 MG TABLET PO (08:56)
[2023-12-14] MEDS: FOLIC ACID 1 MG TABLET PO (08:56)
[2023-12-14] MEDS: MULTIVITAMIN 1 TABLET 1 TAB PO (08:56)
[2023-12-14] MEDS: OLANZapine 2.5 MG TABLET PO (08:56)
[2023-12-14] MEDS: DULOXETINE 30 MG CAPSULE 90 MG PO (08:56)
[2023-12-14] MEDS: ACETAMINOPHEN 325 MG TABLET 650 MG PO (09:35)
[2023-12-14 11:02] LABS: MRSA (Nasal) PCR Not Detected (Not Detect)
[2023-12-14] MEDS: CYCLOBENZAPRINE 10 MG TABLET 5 MG PO (19:32)
[2023-12-14] MEDS: SUMAtriptan 25 MG TABLET 50 MG PO (20:48)
[2023-12-15] VITALS: BP 126/65; PULSE 76; RESP 17; TEMP 36.3; O2SAT 98
[2023-12-15 04:00] VITALS: BP 109/59; PULSE 75; RESP 17; TEMP 36.8; O2SAT 99
[2023-12-15 05:07] LABS: Hematocrit 33.1 % (36-46); Hemoglobin 11.5 g/dL (12.0-16.0); Mean Corpuscular HGB Conc 34.6 % (30-36); Mean Corpuscular Hemoglobin 32.4 PG (26-34); Mean Corpuscular Volume 93.5 fL (80-100); Platelet Count 124 X10^3/uL (150-400); Red Blood Cell Count 3.54 X10^6/uL (4.0-5.2)
[2023-12-15 05:10] LABS: White Blood Cell Count 1.4 X10^3/uL (4.5-11.0)
[2023-12-15 05:30] LABS: Alanine Aminotransferase 22 IU/L (<35); Albumin 3.6 g/dL (3.5-5.0); Albumin Globulin Ratio 1.3 (1.0-2.8); Alkaline Phosphatase 75 U/L (38-126); Aspartate Aminotransferase 35 IU/L (14-36); BUN Creatinine Ratio 15.7 (6-22); Bilirubin Total 0.4 mg/dL (0.2-1.3); Blood Urea Nitrogen 11 mg/dL (7-17); Calcium 9.4 mg/dL (8.4-10.2); Carbon Dioxide 30 mmol/L (22-32); Chloride 104 mmol/L (98-107); Estimated Glomerular Filt Rate > 60 mL/min (>60); Globulin 2.8 g/dL (1.7-4.1); Glucose 96 mg/dL (70-100); HEMOLYSIS < 15 (0-50); Potassium 3.7 mmol/L (3.4-5.1); Sodium 137 mmol/L (137-145); Total Protein 6.4 g/dL (6.3-8.2)
[2023-12-15] MEDS: PANTOPRAZOLE DR 40 MG TABLET PO (06:26)
[2023-12-15 08:00] VITALS: BP 112/67; PULSE 103; RESP 18; O2SAT 97
[2023-12-15] MEDS: DULOXETINE 30 MG CAPSULE 90 MG PO (08:37)
[2023-12-15] MEDS: FOLIC ACID 1 MG TABLET PO (08:37)
[2023-12-15] MEDS: OLANZapine 2.5 MG TABLET PO (08:38)
[2023-12-15] MEDS: ENOXAPARIN 40 MG/0.4 ML SYRINGE SUBCUT (08:38)
[2023-12-15] MEDS: THIAMINE 100 MG TABLET PO (08:38)
[2023-12-15] MEDS: MULTIVITAMIN 1 TABLET 1 TAB PO (08:38)
[2023-12-15 12:00] VITALS: BP 134/77; PULSE 113; RESP 18; O2SAT 99
--- NOTE | 2023-12-15 12:35 | DIET.CONS ---
Dietary Consultation Note Admission Date: 12/14/2023 08:07 Assessment: 38 y F presented to ER with c/o heart palpations at home. Pt with hx of alcoholism. Nutrition consulted for pt with hx of ETOH use disorder. PMH of caloric malnutrition and treated disordered eating (anorexia and bulimia), noted. Met with pt at bedside. Pt reports no appetite changes with good appetite here and outside hospital. No weight loss. Pt reports 3-4 meals per day with protein source. Ht: 175.26 cm Wt: 62.5 kg BMI: 23.0 UBW: 63.64 kg per pt report. 62.596 kg on 09/10/23 per chart, *noted on lasix at home Last BM: () MNA: 14 Mitesh Score: 23 Diet: 12/14/23 Breakfast General (Regular) Diet Diet Modifications: Food Texture: Level 7 - Regular Liquid Consistency: Level 0 - Thin Labs: RBC 3.54 X10^6/uL (4.0-5.2) L 12/15/23 04:53 Hgb 11.5 g/dL (12.0-16.0) L 12/15/23 04:53 Hct 33.1 % (36-46) L 12/15/23 04:53 Creatinine 0.70 mg/dL (0.52-1.04) 12/15/23 04:53 Lactate 1.0 mmol/L (0.7-2.1) 12/14/23 06:10 NT-Pro-B Natriuret Pep 72 pg/mL (<125) 12/14/23 06:10 Nutrition Diagnosis: No nutrition dx at this time Interventions: 1. Encouraged continued adequate intake with heart healthy protein sources, small/freq meals with protein source at each Monitoring/Evaluations: PO intake, weight Electronically Signed by: Jessica Arrington 12/15/23 12:35 Clinical Dietitian [address] [address]
--- NOTE | 2023-12-15 13:22 | CM.DANOTE ---
Patient is a 38 yo female who was admitted on 12/14/23 INPT for SALEEM, hypotension. Pt has [facility] and [facility] for insurance and her PCP is Dr. Andrew Herrera. EMR was reviewed. Per MD, pt with hx of ETOH abuse and cirrhosis with past EF 25% and has improved to 55% and pt now medically stable to discharge home with outpt f/u. UDS was ETOH+ 333. SW met bedside with pt and mother and explained role and pt confirms that she resides in [place], she resides alone in [facility] subsidized apartments, states she has received disability benefits x7 years. Patient also has history of eating disorder. She had been at [facility] about a year ago, and ended up at the [facility], for those with eating disorders last December. She indicated that patient had been down to 80 pounds at one time. She indicated that patient has history of hip pain, as well as vascular necrosis. She does not have any friends, but relies on her parents. Pt confirms following information from ALYSSA assessment in Sep 2023 admission for alcohol withdrawal: Hx Use/Hx Treatment: Patient reports drinking since she was 14 yo and heavily drinking since she was 27 yo. Patient denies polysubstance abuse. Patient states her longest period of sobriety was likely during her treatment stays for ETOH/ALYSSA at [facility] in [place] 5 years ago and during her stay at [facility] in [place] - approx a month 1/2 long. Current Use: Patient reports drinking 12 airplane bottles of alcohol daily (1.7 oz). Patient likes buying this size, reports she can take these small bottles with her anywhere. Patient reports this amount of use for a long time years. Patient had been drinking a bottle of wine daily until switching to hard alcohol. Pt and mom though confirm since pt's admission for ETOH withdrawal in Sep 2023, pt has successfully maintained sobriety until her relapse a few days ago and pt was attending AA meetings regularly. Patient states she plans to remain sober upon discharge and plans to go to AA meetings 6 days per week, go to shinto, talk with her mom for support and talk with her AA sponsor daily. MH: Patient admits to struggle, admits to struggling with her eating disorder and says her treatment stay at the [facility], eating disorder therapy program in [place], was helpful. Both this [employer] and patient agreed it is difficult to assess stability of an eating disorder when patient is drinking her calories and often skips meals. Patient reports with pride that she is not bulimic and attempts to eat three meals per day. Patient does not have a counselor currently. Last MH counselor was seen many years ago. Pt was given resources during her admission in Sep 2023 this year and SW inquired if she has established with a therapist/counselor support and pt denies any current therapist and is currently not interested. Pt denies any discharge planning needs at this time and preference is to discharge back to her apartment today and mom confirms she can provide transport home today. SW updated RN. Plan: Patient to d/c home today via mother POV and outpt f/u and pt plans to return to abstaining from ETOH and continue her ALYSSA outpt supports. MINDY John Discharge Planning/Care Management CM Discharge Assessment Start: 12/15/23 13:14 Freq: Status: Active Protocol: Document 12/15/23 13:14 BF (Rec: 12/15/23 13:21 BF [id number]) Discharge Planning Assessment Assigned B2B Sales Consultant MINDY Bhandari DPOA/Assigned Designee Name informally mother Andreia Contact Information [phone] Advance Directives? No Advance Directives on File No History Provided By Patient,Family Member,Medical Record Has Patient been admitted in last 30 No days? Comment last admission in Sep 2023 for similar Prior Living Arrangements Apartment/Condo Comment Lives at [facility] Household Members none Type of transporation used prior to Relies on Others admit Independent with ADL's Yes Is patient alert and oriented? Yes Caregiver for Another No Comment Goes to AA mtgs Barriers to Discharge No Comment substance abuse, and depression Discharge Plan Home Transportation Arrangement Mother bedside and confirms she can transport pt home today Whiteboard Updated in Patient Room with Yes name and ext. # of B2B Sales Consultant Review Status In Process Please Provide Date Initial DC 12/15/23 Assessment Was Performed Next Review Type Continued Stay Review
--- NOTE | 2023-12-15 13:26 | PC.NURSE ---
pt discharged home with mother; escorted to private vehicle via w/c; all belongings sent w/ pt, including vape retrieved from safe; iv's removed intact; pt given verbal and written discharge instructions; denies any questions or concerns
--- NOTE | 2023-12-15 13:29 | P.DS_ITS ---
History of Present Illness History of Present Illness Chief complaint: Heart Palpitations Narrative: The pt is a 38 yo female who presents to the ER with c/o heart palpations at home today which started around 1530 today when she was resting at home. The pt has a hx of alcoholism and previous alcoholic cardiomyopathy with documented EF of 25% which has improved last month to an EF of 55%. The pt reports that her home meds has recently been increased, metoprolol, entresto, and lasix 80 mg in the morning and 40 qPM. In the ER she was found ot be very hypotensive and was given 2 lites of NS and started on Levophed. She was asymptomatic during my visit, without complaints. Naina has been drinking wine today and only has been drinking alcohol for the past 3 days and prior to that she was sober for the past 90 days in AA. 3 days ago she reports having N/V due to eating a bad sandwich but no diarrhea or vomiting since 2 days ago. Discharge Providers Provider Date of admission: 12/14/23 08:07 Discharge Date: 12/15/23 Primary care physician: Andrew Herrera MD Consults: 12/13/23 22:01 Consult to Dietitian, Adult Routine Comment: Reason For Exam: alcoholic Consult to Discharge Planning Routine Comment: Discharge provider: Alfa Morales DO Summary Hospital Course Discharge Diagnosis: 1. SALEEM, present on admission and resolved 2. Hypotension (likely volume depletion), present on admission and resolved. 3. Cirrhosis. Present on admission and stable. 4. Alcohol use disorder with recent 3 day binge, present on admission and stable. 5. Chronic leukopenia, present on admission and active. 6. 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 She remains euvolemic, no dyspnea or edema. 7. Chronic depression anxiety, present on admission and active. 8. Chronic GERD and esophagitis, present on admission and stable. -weaned off norepinephrine over 1 night -no evidence of infection, blood cultures NG at 24 hours -symptomatic treatment for adverse effects of recent alcohol intake. Benzodiazepines as needed. -hold blood pressure lowering medications until she appears to improve including metoprolol and Entresto. Hospital Course: Admitted for excess alcohol intake and found to be hypotensive. Had not been hydrating well so given IVF and norepi but this was weaned off overnight. BP improved and no evidence of sepsis or infection found. Her home CHF meds were held, but she was told to resume them but at the prior lower dose of entresto of 1 tab BID which had recently been raised to 2 tabs BID. She will contact her cardiology office and monitor her BP at home closely, as well as hydrate with fluids more frequently. Exam Vital Signs (past 8 hours): - 12/15/23 07:00 12/15/23 08:00 12/15/23 12:00 Pulse Rate 103 H 113 H Respiratory Rate 18 18 Blood Pressure 112/67 134/77 Pulse Oximetry 97 99 Oxygen Delivery Method Room Air Oxygen Flow Rate 0 0 Oxygen Delivery Method Room Air Oxygen Flow Rate 0 Narrative Exam Narrative: NAD, alert and oriented. Fluent speech. Lungs are clear, normal rate and effort. Heart is regular, no murmur gallop or rub. Abdomen is soft, non distended. Extremities are free of edema. Objective Labs 12/15/23 04:53 12/15/23 04:53 Labs: Laboratory Results - last 24 hr 12/15/23 04:53 WBC 1.4 L* RBC 3.54 L Hgb 11.5 L Hct 33.1 L MCV 93.5 MCH 32.4 MCHC 34.6 RDW 14.0 Plt Count 124 L Sodium 137 Potassium 3.7 Chloride 104 Carbon Dioxide 30 BUN 11 Creatinine 0.70 Estimated GFR > 60 BUN/Creatinine Ratio 15.7 Glucose 96 Calcium 9.4 Total Bilirubin 0.4 AST 35 ALT 22 Alkaline Phosphatase 75 Total Protein 6.4 Albumin 3.6 Globulin 2.8 Albumin/Globulin Ratio 1.3 [facility] Medical History Pancytopenia Tricuspid regurgitation Mitral regurgitation HFrEF (heart failure with reduced ejection fraction) Left ventricular hypokinesis Hip pain, bilateral 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 This may have made you dehydrated. Discharge orders & Medications Prescriptions: Continued thiamine HCl (vitamin B1) 100 mg tablet 100 mg PO DAILY Qty: 90 3RF cholecalciferol (vitamin D3) [Vitamin D3] 25 mcg (1,000 unit) tablet 2,000 unit PO DAILY Qty: 0 spironolactone 50 mg tablet 50 mg PO DAILY Qty: 90 0RF alendronate 70 mg tablet See Rx Instructions .ROUTE .COMPLEX Qty: 12 0RF Dose Instruction: TAKE 1 TABLET BY MOUTH ON FRIDAY EVERY WEEK Rx Instructions: TAKE 1 TABLET BY MOUTH ON FRIDAY EVERY WEEK Entresto 24-26 mg tablet 1 tab PO BID Qty: 180 0RF baclofen 10 mg tablet 10 mg PO BID Qty: 180 3RF duloxetine 30 mg capsule,delayed release(DR/EC) 30 mg PO DAILY Qty: 90 3RF Rx Instructions: take in combination with 60mg capsule duloxetine 60 mg capsule, delayed rel sprinkle 60 mg PO DAILY Qty: 90 1RF mecobalamin (vitamin B12) 500 mcg tablet,chewable 500 mcg PO DAILY Slow-Mag 71.5 mg tablet,delayed release (DR/EC) 71.5 mg PO BID Qty: 30 0RF oxycodone 5 mg tablet 5 mg PO Q6H PRN (Reason: pain) Qty: 14 0RF lorazepam [Ativan] 1 mg tablet 1 mg PO PRN PRN (Reason: Anxiety) Jardiance 10 mg Tablet 10 mg PO DAILY olanzapine 2.5 mg tablet 2.5 mg PO DAILY Discontinued furosemide 40 mg tablet 40 mg PO BID Qty: 120 2RF Follow up/Referrals: Andrew Herrera MD [Primary Care Provider] - 2 Weeks Diet/Activity/Treatments Diet: Diet as Tolerated Visit Report/Discharge Packet Stand Alone Forms: Patient Portal/API, Stroke Signs & Symptoms Discharge Data Primary Care Provider: Andrew Herrera
== END 2023-12-15 13:25 | disposition home or self-care (01) | DRG 207 ==
LOC: ED 22:29 → AC 12-14 08:08 → ICU 12-14 09:35
PROVIDERS: Internal Medicine; Admitting Provider Hospitalist; Emergency Provider Emergency Medicine; Family Provider Family Medicine; PCP Family Medicine; Referring Provider Emergency Medicine; Visit Provider Hospitalist
DX: I95.9 Hypotension, unspecified (principal); N17.9 Acute kidney failure, unspecified; I50.21 Acute systolic (congestive) heart failure; K74.60 Unspecified cirrhosis of liver; I42.6 Alcoholic cardiomyopathy; K21.00 Gastro-esophageal reflux disease with esophagitis, without bleeding; F32.A Depression, unspecified; F10.229 Alcohol dependence with intoxication, unspecified; F41.9 Anxiety disorder, unspecified; F17.290 Nicotine dependence, other tobacco product, uncomplicated; Y90.8 Blood alcohol level of 240 mg/100 ml or more
CPT/HCPCS: 36415; 36592; 71045; 80053; 80305; 80320; 81001; 81025; 82140; 82550; 83605; 83735; 83880; 84145; 84443; 84484; 85007; 85025; 85027; 85610; 87040; 87797; 93005; 96365; 96366; 96367; 96368; 96375; 96376; 99285; 99291; J1650; J1885; J2060; J2543

== ENCOUNTER 2024-01-01 21:38 | Emergency (ER) | payer OTHER, MEDICAID, SELFPAY ==
[2023-12-14 08:10] VITALS: BMI 23.0
[2024-01-01 21:44] VITALS: BP 122/67; PULSE 83; RESP 16; TEMP 36.8; O2SAT 98
[2024-01-01 22:03] LABS: Add Manual Diff / Slide Review NO; Basophils Absolute Auto 0 /uL (0-100); Basophils Percent Auto 0.4 % (0-2); Eosinophils Absolute Auto 0 /uL (0-450); Eosinophils Percent Auto 0.1 % (2-4); Hematocrit 41.3 % (36-46); Hemoglobin 14.3 g/dL (12.0-16.0); Lymphocytes Absolute Auto 2300 /uL (1100-4500); Mean Corpuscular HGB Conc 34.7 % (30-36); Mean Corpuscular Volume 95.1 fL (80-100); Monocytes Absolute Auto 300 /uL (0-900); Monocytes Percent Auto 6.3 % (3-14); Neutrophils Absolute Auto 1500 /uL (1500-7000); Neutrophils Percent Auto 37.2 % (50-75); Platelet Count 245 X10^3/uL (150-400); Red Blood Cell Count 4.34 X10^6/uL (4.0-5.2); Red Cell Distribution Width 15.7 % (11.6-14.8)
[2024-01-01 22:16] LABS: Alanine Aminotransferase 25 IU/L (<35); Albumin 4.8 g/dL (3.5-5.0); Albumin Globulin Ratio 1.3 (1.0-2.8); Alkaline Phosphatase 95 U/L (38-126); Aspartate Aminotransferase 63 IU/L (14-36); BUN Creatinine Ratio 16.7 (6-22); Bilirubin Total 0.5 mg/dL (0.2-1.3); Blood Urea Nitrogen 20 mg/dL (7-17); Calcium 9.8 mg/dL (8.4-10.2); Carbon Dioxide 29 mmol/L (22-32); Chloride 90 mmol/L (98-107); Estimated Glomerular Filt Rate 60 mL/min (>60); Globulin 3.7 g/dL (1.7-4.1); Glucose 83 mg/dL (70-100); HEMOLYSIS < 15 (0-50); Lipase 88 U/L (23-300); Potassium 5.1 mmol/L (3.4-5.1); Sodium 132 mmol/L (137-145); Total Protein 8.5 g/dL (6.3-8.2)
[2024-01-01 22:29] LABS: Ethanol (ETOH) 449 mg/dL
[2024-01-01 22:37] VITALS: PULSE 87; RESP 18; O2SAT 97
[2024-01-01 22:40] VITALS: BP 113/57; PULSE 85; RESP 28; O2SAT 95
--- NOTE | 2024-01-01 22:49 | ED_ITS ---
HPI - General Adult <Jose Urias DO - Last Filed: 01/07/24 06:57> General Chief complaint: Toxicology Problem Stated complaint: states low BP, states has a heart condition Time Seen by Provider: 01/01/24 21:46 Source: patient and family Mode of arrival: Wheelchair History of Present Illness HPI narrative: Patient is a 38-year-old female. Has known multiple chronic medical issues most of which related to alcohol abuse. She was admitted here to this facility back in September for many of these issues. At the time had some issues with low blood pressure. She withdrew from alcohol here at the hospital. After being discharged she was continue to drink alcohol. She states she has drank alcohol today. Reported only drinking 3 drinks. She states she was feeling very lightheaded. She was with family members. They state that she has been acting altered over the past 24 hours. They took her blood pressure at home and she had a systolic blood pressure in the 70s and 80s. They were concerned given her prior history with how she was feeling and what her blood pressure was that they came to the emergency department for further evaluation. Related Data Home Medications Medication Instructions Recorded Confirmed mecobalamin (vitamin B12) 500 mcg 500 mcg PO DAILY 02/07/23 01/02/24 chewable tablet olanzapine 2.5 mg tablet 2.5 mg PO QAM 02/18/23 01/02/24 empagliflozin 10 mg tablet 10 mg PO DAILY 09/23/23 01/02/24 (Jardiance) furosemide 40 mg tablet 40 mg PO 3XD 01/02/24 01/02/24 metoprolol succinate 25 mg 25 mg PO BID 01/02/24 01/02/24 tablet,extended release 24 hr olanzapine 7.5 mg tablet 7.5 mg PO QPM 01/02/24 01/02/24 ondansetron 4 mg disintegrating 4 mg PO PRN PRN Nausea And Vomiting 01/02/24 01/02/24 tablet pantoprazole 40 mg tablet,delayed 40 mg PO BID 01/02/24 01/02/24 release potassium chloride 20 mEq 20 meq PO DAILY 01/02/24 01/02/24 tablet,extended release(part/cryst) Previous Rx's Medication Instructions Recorded thiamine HCl (vitamin B1) 100 mg 100 mg PO DAILY #90 tabs 12/31/22 tablet spironolactone 50 mg tablet 50 mg PO DAILY #90 tabs 04/10/23 baclofen 10 mg tablet 10 mg PO BID #180 tabs 10/03/23 duloxetine 30 mg capsule,delayed 30 mg PO DAILY #90 caps 10/03/23 release duloxetine 60 mg capsule,delayed 60 mg PO DAILY #90 caps 10/03/23 release sprinkle sacubitril 24 mg-valsartan 26 mg 1 tab PO BID #180 tabs 10/22/23 tablet (Entresto) alendronate 70 mg tablet See Rx Instructions .Route 12/23/23 .COMPLEX #12 tabs Allergies Allergy/AdvReac Type Severity Reaction Status Date / Time gabapentin AdvReac Intermediate Mental Verified 12/13/23 21:19 status changes Review of Systems <DO Brian Butler Last Filed: 01/07/24 06:57> Review of Systems Narrative: See HPI Cardiovascular Comments: Denies chest pain Respiratory Comments: Shortness of breath Gastrointestinal Comments: Denies abdominal pain Neurologic Comments: Is feeling lightheaded Patient History <DO Brian Butler Last Filed: 01/07/24 06:57> Medical History Pancytopenia Tricuspid regurgitation Mitral regurgitation HFrEF (heart failure with reduced ejection fraction) Left ventricular hypokinesis Hip pain, bilateral 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 Leukocytopenia GERD (gastroesophageal reflux disease) Caloric malnutrition Anorexia nervosa Neuropathy Depression Anxiety Alcoholism in remission Ankle pain, right Alcoholism Anorexia Surgical History History of total hip arthroplasty Social History household members: none Smoking Status: Current every day smoker Smoking Status: Current every day smoker tobacco type: vaping alcohol intake frequency: 3 or more drinks per day Alcohol type: hard liquor Substance Use Type: does not use Exam <DO Brian Butler Last Filed: 01/07/24 06:57> Initial Vital Signs Initial Vital Signs: Vital Signs Temperature 98.2 F 01/01/24 21:44 Pulse Rate 83 01/01/24 21:44 Respiratory Rate 16 01/01/24 21:44 Blood Pressure 122/67 01/01/24 21:44 Pulse Oximetry 98 01/01/24 21:44 Oxygen Delivery Method Room Air 01/01/24 21:44 Const General: cooperative, comfortable and No ill appearing HENMT Head: normal to inspection and normocephalic Resp Effort & Inspection: normal respiratory effort Auscultation: clear to auscultation bilaterally Cardio Rate: regular rate Rhythm: regular rhythm GI Inspection: normal to inspection Neuro General: patient alert, patient awake, patient oriented x3 and moves all extremities Speech: speech normal Gait: normal gait Extrem General: normal to inspection and capillary refill normal <Pattie Kendall DO - Last Filed: 01/09/24 11:12> Initial Vital Signs Initial Vital Signs: Vital Signs Temperature 98.2 F 01/01/24 21:44 Pulse Rate 83 01/01/24 21:44 Respiratory Rate 16 01/01/24 21:44 Blood Pressure 122/67 01/01/24 21:44 Pulse Oximetry 98 01/01/24 21:44 Oxygen Delivery Method Room Air 01/01/24 21:44 <Aminata Paez MD - Last Filed: 01/04/24 00:49> Initial Vital Signs Initial Vital Signs: Vital Signs Temperature 98.2 F 01/01/24 21:44 Pulse Rate 83 01/01/24 21:44 Respiratory Rate 16 01/01/24 21:44 Blood Pressure 122/67 01/01/24 21:44 Pulse Oximetry 98 01/01/24 21:44 Oxygen Delivery Method Room Air 01/01/24 21:44 Course <Jose Urias DO - Last Filed: 01/07/24 06:57> Orders Ordered: Discontinued Medications Baclofen (Baclofen 10 Mg Tablet) 10 mg PO BID [facility] Last Admin: 01/03/24 09:09 Dose: 10 mg Documented By: Admin: 01/02/24 21:08 Dose: 10 mg Documented By: Admin: 01/02/24 09:20 Dose: 10 mg Documented By: RAGHAVENDRA Duloxetine HCl (Duloxetine 30 Mg Capsule) 90 mg PO NOW [facility] Duloxetine HCl (Duloxetine 30 Mg Capsule) 90 mg PO NOW [facility] Duloxetine HCl (Duloxetine 30 Mg Capsule) 90 mg PO NOW ONE Stop: 01/02/24 21:16 Last Admin: 01/02/24 21:16 Dose: 90 mg Documented By: GUERRERO Folic Acid (Folic Acid 1 Mg Tablet) 1 mg PO DAILY [facility] Last Admin: 01/03/24 09:12 Dose: 1 mg Documented By: Admin: 01/02/24 09:04 Dose: 1 mg Documented By: RB Furosemide (Furosemide 40 Mg Tablet) 40 mg PO BID [facility] Last Admin: 01/03/24 09:10 Dose: 40 mg Documented By: Admin: 01/02/24 21:08 Dose: 40 mg Documented By: Admin: 01/02/24 09:05 Dose: 40 mg Documented By: RB Thiamine HCl 200 mg/ Sodium (Chloride) 102 mls @ 408 mls/hr IV DAILY [facility] Last Infusion: 01/03/24 09:29 Dose: Infused Documented By: Admin: 01/03/24 09:08 Dose: 408 mls/hr Documented By: Infusion: 01/02/24 08:33 Dose: Infused Documented By: Admin: 01/02/24 08:10 Dose: 408 mls/hr Documented By: RAGHAVENDRA Lorazepam (Lorazepam 2 Mg/Ml Inj) 2 mg IV NOW ONE Stop: 01/02/24 10:11 Last Admin: 01/02/24 10:15 Dose: 2 mg Documented By: RAGHAVENDRA Lorazepam (Lorazepam 2 Mg/Ml Inj) 2 mg IV NOW ONE Stop: 01/02/24 16:11 Last Admin: 01/02/24 16:15 Dose: 2 mg Documented By: RAGHAVENDRA Lorazepam (Lorazepam 2 Mg/Ml Inj) 2 mg IV NOW ONE Stop: 01/02/24 19:12 Last Admin: 01/02/24 19:25 Dose: 2 mg Documented By: GUERRERO Lorazepam (Lorazepam 2 Mg/Ml Inj) 2 mg IV NOW ONE Stop: 01/03/24 05:53 Last Admin: 01/03/24 05:55 Dose: 2 mg Documented By: GUERRERO Lorazepam (Lorazepam 2 Mg/Ml Inj) 1 mg IV NOW ONE Stop: 01/03/24 09:21 Last Admin: 01/03/24 09:29 Dose: Not Given Documented By: RB Lorazepam (Lorazepam 2 Mg/Ml Inj) 2 mg IV NOW ONE Stop: 01/03/24 09:23 Last Admin: 01/03/24 09:29 Dose: 2 mg Documented By: RB Metoprolol Tartrate (Metoprolol Ir 25 Mg Tablet) 25 mg PO BID [facility] Last Admin: 01/03/24 09:10 Dose: 25 mg Documented By: Admin: 01/02/24 21:09 Dose: 25 mg Documented By: Admin: 01/02/24 09:05 Dose: 25 mg Documented By: RAGHAVENDRA Ondansetron HCl (Ondansetron 4 Mg/2 Ml Inj) 4 mg IV Q4HR PRN PRN Reason: Nausea And Vomiting Last Admin: 01/03/24 10:34 Dose: 4 mg Documented By: Admin: 01/02/24 10:15 Dose: 4 mg Documented By: RAGHAVENDRA Pantoprazole Sodium (Pantoprazole Dr 20 Mg Tablet) 40 mg PO BID [facility] Last Admin: 01/03/24 09:10 Dose: 40 mg Documented By: Admin: 01/02/24 21:09 Dose: 40 mg Documented By: Admin: 01/02/24 09:04 Dose: 40 mg Documented By: RAGHAVENDRA Phenobarbital (Phenobarbital 65 Mg/Ml Vial) 260 mg IV NOW ONE Stop: 01/02/24 07:50 Last Admin: 01/02/24 08:10 Dose: 260 mg Documented By: RAGHAVENDRA Phenobarbital (Phenobarbital 65 Mg/Ml Vial) 260 mg IV NOW ONE Stop: 01/02/24 12:11 Last Admin: 01/02/24 12:20 Dose: 260 mg Documented By: RAGHAVENDRA Phenobarbital (Phenobarbital 65 Mg/Ml Vial) 130 mg IV NOW ONE Stop: 01/02/24 16:11 Last Admin: 01/02/24 16:15 Dose: 130 mg Documented By: RAGHAVENDRA Spironolactone (Spironolactone 25 Mg Tablet) 50 mg PO DAILY [facility] Last Admin: 01/03/24 09:10 Dose: 50 mg Documented By: Admin: 01/02/24 09:21 Dose: 50 mg Documented By: RAGHAVENDRA Vital Signs Vital signs: Vital Signs - 8 hr 01/02/24 23:00 01/02/24 23:00 01/02/24 23:30 Pulse Rate 78 78 Respiratory Rate 12 12 Blood Pressure 120/72 Pulse Oximetry 100 95 01/02/24 23:30 01/03/24 00:00 01/03/24 00:00 Pulse Rate 77 Respiratory Rate 12 Blood Pressure 120/75 111/76 Pulse Oximetry 96 01/03/24 00:30 01/03/24 00:30 01/03/24 01:00 Pulse Rate 78 80 Respiratory Rate 12 12 Blood Pressure 111/72 Pulse Oximetry 96 95 01/03/24 01:00 01/03/24 01:30 01/03/24 01:30 Pulse Rate 85 Respiratory Rate 14 Blood Pressure 117/66 107/73 Pulse Oximetry 95 01/03/24 02:00 01/03/24 03:30 Pulse Rate 91 H 99 H Respiratory Rate 23 18 Blood Pressure 115/70 Pulse Oximetry 95 <Pattie Kendall, DO - Last Filed: 01/09/24 11:12> Orders Ordered: Discontinued Medications Baclofen (Baclofen 10 Mg Tablet) 10 mg PO BID [facility] Last Admin: 01/03/24 09:09 Dose: 10 mg Documented By: Admin: 01/02/24 21:08 Dose: 10 mg Documented By: Admin: 01/02/24 09:20 Dose: 10 mg Documented By: RAGHAVENDRA Duloxetine HCl (Duloxetine 30 Mg Capsule) 90 mg PO NOW [facility] Duloxetine HCl (Duloxetine 30 Mg Capsule) 90 mg PO NOW [facility] Duloxetine HCl (Duloxetine 30 Mg Capsule) 90 mg PO NOW ONE Stop: 01/02/24 21:16 Last Admin: 01/02/24 21:16 Dose: 90 mg Documented By: GUERRERO Folic Acid (Folic Acid 1 Mg Tablet) 1 mg PO DAILY [facility] Last Admin: 01/03/24 09:12 Dose: 1 mg Documented By: Admin: 01/02/24 09:04 Dose: 1 mg Documented By: RAGHAVENDRA Furosemide (Furosemide 40 Mg Tablet) 40 mg PO BID [facility] Last Admin: 01/03/24 09:10 Dose: 40 mg Documented By: Admin: 01/02/24 21:08 Dose: 40 mg Documented By: Admin: 01/02/24 09:05 Dose: 40 mg Documented By: RAGHAVENDRA Thiamine HCl 200 mg/ Sodium (Chloride) 102 mls @ 408 mls/hr IV DAILY [facility] Last Infusion: 01/03/24 09:29 Dose: Infused Documented By: Admin: 01/03/24 09:08 Dose: 408 mls/hr Documented By: Infusion: 01/02/24 08:33 Dose: Infused Documented By: Admin: 01/02/24 08:10 Dose: 408 mls/hr Documented By: RAGHAVENDRA Lorazepam (Lorazepam 2 Mg/Ml Inj) 2 mg IV NOW ONE Stop: 01/02/24 10:11 Last Admin: 01/02/24 10:15 Dose: 2 mg Documented By: RAGHAVENDRA Lorazepam (Lorazepam 2 Mg/Ml Inj) 2 mg IV NOW ONE Stop: 01/02/24 16:11 Last Admin: 01/02/24 16:15 Dose: 2 mg Documented By: RAGHAVENDRA Lorazepam (Lorazepam 2 Mg/Ml Inj) 2 mg IV NOW ONE Stop: 01/02/24 19:12 Last Admin: 01/02/24 19:25 Dose: 2 mg Documented By: GUERRERO Lorazepam (Lorazepam 2 Mg/Ml Inj) 2 mg IV NOW ONE Stop: 01/03/24 05:53 Last Admin: 01/03/24 05:55 Dose: 2 mg Documented By: GUERRERO Lorazepam (Lorazepam 2 Mg/Ml Inj) 1 mg IV NOW ONE Stop: 01/03/24 09:21 Last Admin: 01/03/24 09:29 Dose: Not Given Documented By: RAGHAVENDRA Lorazepam (Lorazepam 2 Mg/Ml Inj) 2 mg IV NOW ONE Stop: 01/03/24 09:23 Last Admin: 01/03/24 09:29 Dose: 2 mg Documented By: RAGHAVENDRA Metoprolol Tartrate (Metoprolol Ir 25 Mg Tablet) 25 mg PO BID [facility] Last Admin: 01/03/24 09:10 Dose: 25 mg Documented By: Admin: 01/02/24 21:09 Dose: 25 mg Documented By: Admin: 01/02/24 09:05 Dose: 25 mg Documented By: RAGHAVENDRA Ondansetron HCl (Ondansetron 4 Mg/2 Ml Inj) 4 mg IV Q4HR PRN PRN Reason: Nausea And Vomiting Last Admin: 01/03/24 10:34 Dose: 4 mg Documented By: Admin: 01/02/24 10:15 Dose: 4 mg Documented By: RB Pantoprazole Sodium (Pantoprazole Dr 20 Mg Tablet) 40 mg PO BID [facility] Last Admin: 01/03/24 09:10 Dose: 40 mg Documented By: Admin: 01/02/24 21:09 Dose: 40 mg Documented By: Admin: 01/02/24 09:04 Dose: 40 mg Documented By: RB Phenobarbital (Phenobarbital 65 Mg/Ml Vial) 260 mg IV NOW ONE Stop: 01/02/24 07:50 Last Admin: 01/02/24 08:10 Dose: 260 mg Documented By: RB Phenobarbital (Phenobarbital 65 Mg/Ml Vial) 260 mg IV NOW ONE Stop: 01/02/24 12:11 Last Admin: 01/02/24 12:20 Dose: 260 mg Documented By: RB Phenobarbital (Phenobarbital 65 Mg/Ml Vial) 130 mg IV NOW ONE Stop: 01/02/24 16:11 Last Admin: 01/02/24 16:15 Dose: 130 mg Documented By: RB Spironolactone (Spironolactone 25 Mg Tablet) 50 mg PO DAILY [facility] Last Admin: 01/03/24 09:10 Dose: 50 mg Documented By: Admin: 01/02/24 09:21 Dose: 50 mg Documented By: RAGHAVENDRA Vital Signs Vital signs: Vital Signs - 8 hr 01/02/24 23:00 01/02/24 23:00 01/02/24 23:30 Pulse Rate 78 78 Respiratory Rate 12 12 Blood Pressure 120/72 Pulse Oximetry 100 95 01/02/24 23:30 01/03/24 00:00 01/03/24 00:00 Pulse Rate 77 Respiratory Rate 12 Blood Pressure 120/75 111/76 Pulse Oximetry 96 01/03/24 00:30 01/03/24 00:30 01/03/24 01:00 Pulse Rate 78 80 Respiratory Rate 12 12 Blood Pressure 111/72 Pulse Oximetry 96 95 01/03/24 01:00 01/03/24 01:30 01/03/24 01:30 Pulse Rate 85 Respiratory Rate 14 Blood Pressure 117/66 107/73 Pulse Oximetry 95 01/03/24 02:00 01/03/24 03:30 Pulse Rate 91 H 99 H Respiratory Rate 23 18 Blood Pressure 115/70 Pulse Oximetry 95 <Aminata Paez MD - Last Filed: 01/04/24 00:49> Orders Ordered: Discontinued Medications Baclofen (Baclofen 10 Mg Tablet) 10 mg PO BID [facility] Last Admin: 01/03/24 09:09 Dose: 10 mg Documented By: Admin: 01/02/24 21:08 Dose: 10 mg Documented By: Admin: 01/02/24 09:20 Dose: 10 mg Documented By: RB Duloxetine HCl (Duloxetine 30 Mg Capsule) 90 mg PO NOW [facility] Duloxetine HCl (Duloxetine 30 Mg Capsule) 90 mg PO NOW [facility] Duloxetine HCl (Duloxetine 30 Mg Capsule) 90 mg PO NOW ONE Stop: 01/02/24 21:16 Last Admin: 01/02/24 21:16 Dose: 90 mg Documented By: GUERRERO Folic Acid (Folic Acid 1 Mg Tablet) 1 mg PO DAILY [facility] Last Admin: 01/03/24 09:12 Dose: 1 mg Documented By: Admin: 01/02/24 09:04 Dose: 1 mg Documented By: RB Furosemide (Furosemide 40 Mg Tablet) 40 mg PO BID [facility] Last Admin: 01/03/24 09:10 Dose: 40 mg Documented By: Admin: 01/02/24 21:08 Dose: 40 mg Documented By: Admin: 01/02/24 09:05 Dose: 40 mg Documented By: RAGHAVENDRA Thiamine HCl 200 mg/ Sodium (Chloride) 102 mls @ 408 mls/hr IV DAILY [facility] Last Infusion: 01/03/24 09:29 Dose: Infused Documented By: Admin: 01/03/24 09:08 Dose: 408 mls/hr Documented By: Infusion: 01/02/24 08:33 Dose: Infused Documented By: Admin: 01/02/24 08:10 Dose: 408 mls/hr Documented By: RAGHAVENDRA Lorazepam (Lorazepam 2 Mg/Ml Inj) 2 mg IV NOW ONE Stop: 01/02/24 10:11 Last Admin: 01/02/24 10:15 Dose: 2 mg Documented By: RAGHAVENDRA Lorazepam (Lorazepam 2 Mg/Ml Inj) 2 mg IV NOW ONE Stop: 01/02/24 16:11 Last Admin: 01/02/24 16:15 Dose: 2 mg Documented By: RAGHAVENDRA Lorazepam (Lorazepam 2 Mg/Ml Inj) 2 mg IV NOW ONE Stop: 01/02/24 19:12 Last Admin: 01/02/24 19:25 Dose: 2 mg Documented By: GUERRERO Lorazepam (Lorazepam 2 Mg/Ml Inj) 2 mg IV NOW ONE Stop: 01/03/24 05:53 Last Admin: 01/03/24 05:55 Dose: 2 mg Documented By: GUERRERO Lorazepam (Lorazepam 2 Mg/Ml Inj) 1 mg IV NOW ONE Stop: 01/03/24 09:21 Last Admin: 01/03/24 09:29 Dose: Not Given Documented By: RAGHAVENDRA Lorazepam (Lorazepam 2 Mg/Ml Inj) 2 mg IV NOW ONE Stop: 01/03/24 09:23 Last Admin: 01/03/24 09:29 Dose: 2 mg Documented By: RB Metoprolol Tartrate (Metoprolol Ir 25 Mg Tablet) 25 mg PO BID [facility] Last Admin: 01/03/24 09:10 Dose: 25 mg Documented By: Admin: 01/02/24 21:09 Dose: 25 mg Documented By: Admin: 01/02/24 09:05 Dose: 25 mg Documented By: RB Ondansetron HCl (Ondansetron 4 Mg/2 Ml Inj) 4 mg IV Q4HR PRN PRN Reason: Nausea And Vomiting Last Admin: 01/03/24 10:34 Dose: 4 mg Documented By: Admin: 01/02/24 10:15 Dose: 4 mg Documented By: RB Pantoprazole Sodium (Pantoprazole Dr 20 Mg Tablet) 40 mg PO BID [facility] Last Admin: 01/03/24 09:10 Dose: 40 mg Documented By: Admin: 01/02/24 21:09 Dose: 40 mg Documented By: Admin: 01/02/24 09:04 Dose: 40 mg Documented By: RB Phenobarbital (Phenobarbital 65 Mg/Ml Vial) 260 mg IV NOW ONE Stop: 01/02/24 07:50 Last Admin: 01/02/24 08:10 Dose: 260 mg Documented By: RB Phenobarbital (Phenobarbital 65 Mg/Ml Vial) 260 mg IV NOW ONE Stop: 01/02/24 12:11 Last Admin: 01/02/24 12:20 Dose: 260 mg Documented By: RB Phenobarbital (Phenobarbital 65 Mg/Ml Vial) 130 mg IV NOW ONE Stop: 01/02/24 16:11 Last Admin: 01/02/24 16:15 Dose: 130 mg Documented By: RB Spironolactone (Spironolactone 25 Mg Tablet) 50 mg PO DAILY [facility] Last Admin: 01/03/24 09:10 Dose: 50 mg Documented By: Admin: 01/02/24 09:21 Dose: 50 mg Documented By: RB Vital Signs Vital signs: Vital Signs - 8 hr 01/02/24 23:00 01/02/24 23:00 01/02/24 23:30 Pulse Rate 78 78 Respiratory Rate 12 12 Blood Pressure 120/72 Pulse Oximetry 100 95 01/02/24 23:30 01/03/24 00:00 01/03/24 00:00 Pulse Rate 77 Respiratory Rate 12 Blood Pressure 120/75 111/76 Pulse Oximetry 96 01/03/24 00:30 01/03/24 00:30 01/03/24 01:00 Pulse Rate 78 80 Respiratory Rate 12 12 Blood Pressure 111/72 Pulse Oximetry 96 95 01/03/24 01:00 01/03/24 01:30 01/03/24 01:30 Pulse Rate 85 Respiratory Rate 14 Blood Pressure 117/66 107/73 Pulse Oximetry 95 01/03/24 02:00 01/03/24 03:30 Pulse Rate 91 H 99 H Respiratory Rate 23 18 Blood Pressure 115/70 Pulse Oximetry 95 Medical Decision Making <Jose Urias, - Last Filed: 01/07/24 06:57> Medical Records Medical records reviewed: Yes I reviewed the patient's medical records. Lab Data Lab results reviewed: Yes I reviewed the patient's lab results. 01/01/24 21:53 01/01/24 21:53 Labs: Lab Results 01/01/24 01/01/24 01/01/24 Range/Units 21:53 23:45 23:45 WBC 4.0 L (4.5-11.0) X10^3/uL RBC 4.34 (4.0-5.2) X10^6/uL Hgb 14.3 (12.0-16.0) g/dL Hct 41.3 (36-46) % MCV 95.1 (80-100) fL MCH 33.0 (26-34) PG MCHC 34.7 (30-36) % RDW 15.7 H (11.6-14.8) % Plt Count 245 (150-400) X10^3/uL Neut % (Auto) 37.2 L (50-75) % Lymph % (Auto) 56.0 H (25-40) % [place] % (Auto) 6.3 (3-14) % Eos % (Auto) 0.1 L (2-4) % Baso % (Auto) 0.4 (0-2) % Neut # (Auto) 1500 (2644-7540) /uL Lymph # (Auto) 2300 (4254-6799) /uL [place] # (Auto) 300 (0-900) /uL Eos # (Auto) 0 (0-450) /uL Baso # (Auto) 0 (0-100) /uL Sodium 132 L (137-145) mmol/L Potassium 5.1 (3.4-5.1) mmol/L Chloride 90 L (98-107) mmol/L Carbon Dioxide 29 (22-32) mmol/L BUN 20 H (7-17) mg/dL Creatinine 1.20 H (0.52-1.04) mg/dL Estimated GFR 60 (>60) mL/min BUN/Creatinine Ratio 16.7 (6-22) Glucose 83 (70-100) mg/dL Calcium 9.8 (8.4-10.2) mg/dL Total Bilirubin 0.5 (0.2-1.3) mg/dL AST 63 H (14-36) IU/L ALT 25 (<35) IU/L Alkaline Phosphatase 95 (38-126) U/L Total Protein 8.5 H (6.3-8.2) g/dL Albumin 4.8 (3.5-5.0) g/dL Globulin 3.7 (1.7-4.1) g/dL Albumin/Globulin Ratio 1.3 (1.0-2.8) Lipase 88 (23-300) U/L Urine Color Yellow Urine Appearance Clear Urine pH 5.5 Normal (4.5-8.0) Ur Specific [place] 1.010 (1.000-1.035) Urine Protein Negative (Negative) Urine Glucose (UA) 1+ H (Negative) g/dL Urine Ketones Negative (NEGATIVE) Urine Occult Blood Negative (Negative) Urine Nitrate Negative (Negative) Urine Bilirubin Negative (NEGATIVE) Urine Urobilinogen 0.2 (0.2) E.U./dL Ur Leukocyte Esterase Negative (NEGATIVE) Urine RBC None seen (0-5/HPF) Urine WBC None seen (0-5/HPF) Ur Squamous Epith Cells 5-10 /hpf H (0-5/HPF) Urine Bacteria Few (2-10) H (None) Ur Culture Indicated? Cult not indicated Vol Urine Centrifuged 10ml (spun) Urine Test Negative (Negative) U Opiates 300ng/mL cut Negative (Negative) Ur Oxycodone Screen Negative (Negative) Urine Methadone Screen Negative (Negative) Ur Barbiturates Screen Negative (Negative) U Tricyclic Antidepress Negative (Negative) Ur Phencyclidine Scrn Negative (Negative) Ur Amphetamines Screen Negative (Negative) U Methamphetamines Scrn Negative (Negative) Ur MDMA Scrn (Ecstasy) Negative (Negative) U Benzodiazepines Scrn Negative (Negative) Urine Cocaine Screen Negative (Negative) U Marijuana (THC) Screen Negative (Negative) Urine Specific [place] Normal (Normal) Ethyl Alcohol 449 H* ( - 10) mg/dL Ur Creatinine Normal (Normal) SARS-CoV-2 (PCR) (Negative) Influenza A (RT-PCR) (NEGATIVE) Influenza B (RT-PCR) (NEGATIVE) RSV (PCR) (Negative) 01/02/24 01/02/24 01/02/24 Range/Units 00:50 02:01 06:00 WBC (4.5-11.0) X10^3/uL RBC (4.0-5.2) X10^6/uL Hgb (12.0-16.0) g/dL Hct (36-46) % MCV (80-100) fL MCH (26-34) PG MCHC (30-36) % RDW (11.6-14.8) % Plt Count (150-400) X10^3/uL Neut % (Auto) (50-75) % Lymph % (Auto) (25-40) % [place] % (Auto) (3-14) % Eos % (Auto) (2-4) % Baso % (Auto) (0-2) % Neut # (Auto) (5963-1025) /uL Lymph # (Auto) (4736-0430) /uL [place] # (Auto) (0-900) /uL Eos # (Auto) (0-450) /uL Baso # (Auto) (0-100) /uL Sodium (137-145) mmol/L Potassium (3.4-5.1) mmol/L Chloride (98-107) mmol/L Carbon Dioxide (22-32) mmol/L BUN (7-17) mg/dL Creatinine (0.52-1.04) mg/dL Estimated GFR (>60) mL/min BUN/Creatinine Ratio (6-22) Glucose (70-100) mg/dL Calcium (8.4-10.2) mg/dL Total Bilirubin (0.2-1.3) mg/dL AST (14-36) IU/L ALT (<35) IU/L Alkaline Phosphatase (38-126) U/L Total Protein (6.3-8.2) g/dL Albumin (3.5-5.0) g/dL Globulin (1.7-4.1) g/dL Albumin/Globulin Ratio (1.0-2.8) Lipase (23-300) U/L Urine Color Urine Appearance Urine pH (4.5-8.0) Ur Specific [place] (1.000-1.035) Urine Protein (Negative) Urine Glucose (UA) (Negative) g/dL Urine Ketones (NEGATIVE) Urine Occult Blood (Negative) Urine Nitrate (Negative) Urine Bilirubin (NEGATIVE) Urine Urobilinogen (0.2) E.U./dL Ur Leukocyte Esterase (NEGATIVE) Urine RBC (0-5/HPF) Urine WBC (0-5/HPF) Ur Squamous Epith Cells (0-5/HPF) Urine Bacteria (None) Ur Culture Indicated? Vol Urine Centrifuged Urine Test (Negative) U Opiates 300ng/mL cut (Negative) Ur Oxycodone Screen (Negative) Urine Methadone Screen (Negative) Ur Barbiturates Screen (Negative) U Tricyclic Antidepress (Negative) Ur Phencyclidine Scrn (Negative) Ur Amphetamines Screen (Negative) U Methamphetamines Scrn (Negative) Ur MDMA Scrn (Ecstasy) (Negative) U Benzodiazepines Scrn (Negative) Urine Cocaine Screen (Negative) U Marijuana (THC) Screen (Negative) Urine Specific [place] (Normal) Ethyl Alcohol 316 H 222 H ( - 10) mg/dL Ur Creatinine (Normal) SARS-CoV-2 (PCR) Negative (Negative) Influenza A (RT-PCR) Flu a negative (NEGATIVE) Influenza B (RT-PCR) Flu b negative (NEGATIVE) RSV (PCR) Negative (Negative) MDM Narrative Medical decision making narrative: Blood pressure since arrival here in the emergency department has been relatively unremarkable. She was alert and oriented. No signs of alcohol withdrawal. Her alcohol level is significantly elevated which is most likely the cause of her lightheadedness and also her confusion that her family members been describing. I discussed options. Initially patient was not interested in detox. There was no indication for admission to the hospital currently. After period of observation and discussion with the family the patient states she is willing to pursue detox/rehab. Given her presenting alcohol level patient will need to remain here in the emergency department until her level improves. She was remained stable without signs of withdrawal. Alcohol level now is less than 250. We will start the process of finding detox facility for the patient. Care turned over to day provider to follow-up and disposition. <Pattie Kendall, DO - Last Filed: 01/09/24 11:12> Lab Data Labs: Lab Results 01/01/24 01/01/24 01/01/24 Range/Units 21:53 23:45 23:45 WBC 4.0 L (4.5-11.0) X10^3/uL RBC 4.34 (4.0-5.2) X10^6/uL Hgb 14.3 (12.0-16.0) g/dL Hct 41.3 (36-46) % MCV 95.1 (80-100) fL MCH 33.0 (26-34) PG MCHC 34.7 (30-36) % RDW 15.7 H (11.6-14.8) % Plt Count 245 (150-400) X10^3/uL Neut % (Auto) 37.2 L (50-75) % Lymph % (Auto) 56.0 H (25-40) % [place] % (Auto) 6.3 (3-14) % Eos % (Auto) 0.1 L (2-4) % Baso % (Auto) 0.4 (0-2) % Neut # (Auto) 1500 (8925-4154) /uL Lymph # (Auto) 2300 (3008-5089) /uL [place] # (Auto) 300 (0-900) /uL Eos # (Auto) 0 (0-450) /uL Baso # (Auto) 0 (0-100) /uL Sodium 132 L (137-145) mmol/L Potassium 5.1 (3.4-5.1) mmol/L Chloride 90 L (98-107) mmol/L Carbon Dioxide 29 (22-32) mmol/L BUN 20 H (7-17) mg/dL Creatinine 1.20 H (0.52-1.04) mg/dL Estimated GFR 60 (>60) mL/min BUN/Creatinine Ratio 16.7 (6-22) Glucose 83 (70-100) mg/dL Calcium 9.8 (8.4-10.2) mg/dL Total Bilirubin 0.5 (0.2-1.3) mg/dL AST 63 H (14-36) IU/L ALT 25 (<35) IU/L Alkaline Phosphatase 95 (38-126) U/L Total Protein 8.5 H (6.3-8.2) g/dL Albumin 4.8 (3.5-5.0) g/dL Globulin 3.7 (1.7-4.1) g/dL Albumin/Globulin Ratio 1.3 (1.0-2.8) Lipase 88 (23-300) U/L Urine Color Yellow Urine Appearance Clear Urine pH 5.5 Normal (4.5-8.0) Ur Specific [place] 1.010 (1.000-1.035) Urine Protein Negative (Negative) Urine Glucose (UA) 1+ H (Negative) g/dL Urine Ketones Negative (NEGATIVE) Urine Occult Blood Negative (Negative) Urine Nitrate Negative (Negative) Urine Bilirubin Negative (NEGATIVE) Urine Urobilinogen 0.2 (0.2) E.U./dL Ur Leukocyte Esterase Negative (NEGATIVE) Urine RBC None seen (0-5/HPF) Urine WBC None seen (0-5/HPF) Ur Squamous Epith Cells 5-10 /hpf H (0-5/HPF) Urine Bacteria Few (2-10) H (None) Ur Culture Indicated? Cult not indicated Vol Urine Centrifuged 10ml (spun) Urine Test Negative (Negative) U Opiates 300ng/mL cut Negative (Negative) Ur Oxycodone Screen Negative (Negative) Urine Methadone Screen Negative (Negative) Ur Barbiturates Screen Negative (Negative) U Tricyclic Antidepress Negative (Negative) Ur Phencyclidine Scrn Negative (Negative) Ur Amphetamines Screen Negative (Negative) U Methamphetamines Scrn Negative (Negative) Ur MDMA Scrn (Ecstasy) Negative (Negative) U Benzodiazepines Scrn Negative (Negative) Urine Cocaine Screen Negative (Negative) U Marijuana (THC) Screen Negative (Negative) Urine Specific [place] Normal (Normal) Ethyl Alcohol 449 H* ( - 10) mg/dL Ur Creatinine Normal (Normal) SARS-CoV-2 (PCR) (Negative) Influenza A (RT-PCR) (NEGATIVE) Influenza B (RT-PCR) (NEGATIVE) RSV (PCR) (Negative) 04/12/24 04/12/24 04/12/24 Range/Units 00:50 02:01 06:00 WBC (4.5-11.0) X10^3/uL RBC (4.0-5.2) X10^6/uL Hgb (12.0-16.0) g/dL Hct (36-46) % MCV (80-100) fL MCH (26-34) PG MCHC (30-36) % RDW (11.6-14.8) % Plt Count (150-400) X10^3/uL Neut % (Auto) (50-75) % Lymph % (Auto) (25-40) % [place] % (Auto) (3-14) % Eos % (Auto) (2-4) % Baso % (Auto) (0-2) % Neut # (Auto) (5028-2668) /uL Lymph # (Auto) (8862-1086) /uL [place] # (Auto) (0-900) /uL Eos # (Auto) (0-450) /uL Baso # (Auto) (0-100) /uL Sodium (137-145) mmol/L Potassium (3.4-5.1) mmol/L Chloride (98-107) mmol/L Carbon Dioxide (22-32) mmol/L BUN (7-17) mg/dL Creatinine (0.52-1.04) mg/dL Estimated GFR (>60) mL/min BUN/Creatinine Ratio (6-22) Glucose (70-100) mg/dL Calcium (8.4-10.2) mg/dL Total Bilirubin (0.2-1.3) mg/dL AST (14-36) IU/L ALT (<35) IU/L Alkaline Phosphatase (38-126) U/L Total Protein (6.3-8.2) g/dL Albumin (3.5-5.0) g/dL Globulin (1.7-4.1) g/dL Albumin/Globulin Ratio (1.0-2.8) Lipase (23-300) U/L Urine Color Urine Appearance Urine pH (4.5-8.0) Ur Specific [place] (1.000-1.035) Urine Protein (Negative) Urine Glucose (UA) (Negative) g/dL Urine Ketones (NEGATIVE) Urine Occult Blood (Negative) Urine Nitrate (Negative) Urine Bilirubin (NEGATIVE) Urine Urobilinogen (0.2) E.U./dL Ur Leukocyte Esterase (NEGATIVE) Urine RBC (0-5/HPF) Urine WBC (0-5/HPF) Ur Squamous Epith Cells (0-5/HPF) Urine Bacteria (None) Ur Culture Indicated? Vol Urine Centrifuged Urine Test (Negative) U Opiates 300ng/mL cut (Negative) Ur Oxycodone Screen (Negative) Urine Methadone Screen (Negative) Ur Barbiturates Screen (Negative) U Tricyclic Antidepress (Negative) Ur Phencyclidine Scrn (Negative) Ur Amphetamines Screen (Negative) U Methamphetamines Scrn (Negative) Ur MDMA Scrn (Ecstasy) (Negative) U Benzodiazepines Scrn (Negative) Urine Cocaine Screen (Negative) U Marijuana (THC) Screen (Negative) Urine Specific [place] (Normal) Ethyl Alcohol 316 H 222 H ( - 10) mg/dL Ur Creatinine (Normal) SARS-CoV-2 (PCR) Negative (Negative) Influenza A (RT-PCR) Flu a negative (NEGATIVE) Influenza B (RT-PCR) Flu b negative (NEGATIVE) RSV (PCR) Negative (Negative) MDM Narrative Medical decision making narrative: Blood pressure since arrival here in the emergency department has been relatively unremarkable. She was alert and oriented. No signs of alcohol withdrawal. Her alcohol level is significantly elevated which is most likely the cause of her lightheadedness and also her confusion that her family members been describing. I discussed options. Initially patient was not interested in detox. There was no indication for admission to the hospital currently. After period of observation and discussion with the family the patient states she is willing to pursue detox/rehab. Given her presenting alcohol level patient will need to remain here in the emergency department until her level improves. She was remained stable without signs of withdrawal. Alcohol level now is less than 250. We will start the process of finding detox facility for the patient. Care turned over to day provider to follow-up and disposition. Dr. Kendall-patient signed out to me by Dr. Urias I have seen evaluated patient myself. She is sitting in bed awake alert mildly tachycardic heart rate 110 feeling a little shaky. Alcohol level has come down from 449 to 222. Awaiting for detox bed [facility] has a bed in the morning, but not today. Calling other places. Willing to stay in ED until tomorrow. <Aminata Paez MD - Last Filed: 01/04/24 00:49> Lab Data Labs: Lab Results 01/01/24 01/01/24 01/01/24 Range/Units 21:53 23:45 23:45 WBC 4.0 L (4.5-11.0) X10^3/uL RBC 4.34 (4.0-5.2) X10^6/uL Hgb 14.3 (12.0-16.0) g/dL Hct 41.3 (36-46) % MCV 95.1 (80-100) fL MCH 33.0 (26-34) PG MCHC 34.7 (30-36) % RDW 15.7 H (11.6-14.8) % Plt Count 245 (150-400) X10^3/uL Neut % (Auto) 37.2 L (50-75) % Lymph % (Auto) 56.0 H (25-40) % [place] % (Auto) 6.3 (3-14) % Eos % (Auto) 0.1 L (2-4) % Baso % (Auto) 0.4 (0-2) % Neut # (Auto) 1500 (7425-2771) /uL Lymph # (Auto) 2300 (0905-1871) /uL [place] # (Auto) 300 (0-900) /uL Eos # (Auto) 0 (0-450) /uL Baso # (Auto) 0 (0-100) /uL Sodium 132 L (137-145) mmol/L Potassium 5.1 (3.4-5.1) mmol/L Chloride 90 L (98-107) mmol/L Carbon Dioxide 29 (22-32) mmol/L BUN 20 H (7-17) mg/dL Creatinine 1.20 H (0.52-1.04) mg/dL Estimated GFR 60 (>60) mL/min BUN/Creatinine Ratio 16.7 (6-22) Glucose 83 (70-100) mg/dL Calcium 9.8 (8.4-10.2) mg/dL Total Bilirubin 0.5 (0.2-1.3) mg/dL AST 63 H (14-36) IU/L ALT 25 (<35) IU/L Alkaline Phosphatase 95 (38-126) U/L Total Protein 8.5 H (6.3-8.2) g/dL Albumin 4.8 (3.5-5.0) g/dL Globulin 3.7 (1.7-4.1) g/dL Albumin/Globulin Ratio 1.3 (1.0-2.8) Lipase 88 (23-300) U/L Urine Color Yellow Urine Appearance Clear Urine pH 5.5 Normal (4.5-8.0) Ur Specific [place] 1.010 (1.000-1.035) Urine Protein Negative (Negative) Urine Glucose (UA) 1+ H (Negative) g/dL Urine Ketones Negative (NEGATIVE) Urine Occult Blood Negative (Negative) Urine Nitrate Negative (Negative) Urine Bilirubin Negative (NEGATIVE) Urine Urobilinogen 0.2 (0.2) E.U./dL Ur Leukocyte Esterase Negative (NEGATIVE) Urine RBC None seen (0-5/HPF) Urine WBC None seen (0-5/HPF) Ur Squamous Epith Cells 5-10 /hpf H (0-5/HPF) Urine Bacteria Few (2-10) H (None) Ur Culture Indicated? Cult not indicated Vol Urine Centrifuged 10ml (spun) Urine Test Negative (Negative) U Opiates 300ng/mL cut Negative (Negative) Ur Oxycodone Screen Negative (Negative) Urine Methadone Screen Negative (Negative) Ur Barbiturates Screen Negative (Negative) U Tricyclic Antidepress Negative (Negative) Ur Phencyclidine Scrn Negative (Negative) Ur Amphetamines Screen Negative (Negative) U Methamphetamines Scrn Negative (Negative) Ur MDMA Scrn (Ecstasy) Negative (Negative) U Benzodiazepines Scrn Negative (Negative) Urine Cocaine Screen Negative (Negative) U Marijuana (THC) Screen Negative (Negative) Urine Specific [place] Normal (Normal) Ethyl Alcohol 449 H* ( - 10) mg/dL Ur Creatinine Normal (Normal) SARS-CoV-2 (PCR) (Negative) Influenza A (RT-PCR) (NEGATIVE) Influenza B (RT-PCR) (NEGATIVE) RSV (PCR) (Negative) 01/02/24 01/02/24 01/02/24 Range/Units 00:50 02:01 06:00 WBC (4.5-11.0) X10^3/uL RBC (4.0-5.2) X10^6/uL Hgb (12.0-16.0) g/dL Hct (36-46) % MCV (80-100) fL MCH (26-34) PG MCHC (30-36) % RDW (11.6-14.8) % Plt Count (150-400) X10^3/uL Neut % (Auto) (50-75) % Lymph % (Auto) (25-40) % [place] % (Auto) (3-14) % Eos % (Auto) (2-4) % Baso % (Auto) (0-2) % Neut # (Auto) (0475-2928) /uL Lymph # (Auto) (3222-0564) /uL [place] # (Auto) (0-900) /uL Eos # (Auto) (0-450) /uL Baso # (Auto) (0-100) /uL Sodium (137-145) mmol/L Potassium (3.4-5.1) mmol/L Chloride (98-107) mmol/L Carbon Dioxide (22-32) mmol/L BUN (7-17) mg/dL Creatinine (0.52-1.04) mg/dL Estimated GFR (>60) mL/min BUN/Creatinine Ratio (6-22) Glucose (70-100) mg/dL Calcium (8.4-10.2) mg/dL Total Bilirubin (0.2-1.3) mg/dL AST (14-36) IU/L ALT (<35) IU/L Alkaline Phosphatase (38-126) U/L Total Protein (6.3-8.2) g/dL Albumin (3.5-5.0) g/dL Globulin (1.7-4.1) g/dL Albumin/Globulin Ratio (1.0-2.8) Lipase (23-300) U/L Urine Color Urine Appearance Urine pH (4.5-8.0) Ur Specific [place] (1.000-1.035) Urine Protein (Negative) Urine Glucose (UA) (Negative) g/dL Urine Ketones (NEGATIVE) Urine Occult Blood (Negative) Urine Nitrate (Negative) Urine Bilirubin (NEGATIVE) Urine Urobilinogen (0.2) E.U./dL Ur Leukocyte Esterase (NEGATIVE) Urine RBC (0-5/HPF) Urine WBC (0-5/HPF) Ur Squamous Epith Cells (0-5/HPF) Urine Bacteria (None) Ur Culture Indicated? Vol Urine Centrifuged Urine Test (Negative) U Opiates 300ng/mL cut (Negative) Ur Oxycodone Screen (Negative) Urine Methadone Screen (Negative) Ur Barbiturates Screen (Negative) U Tricyclic Antidepress (Negative) Ur Phencyclidine Scrn (Negative) Ur Amphetamines Screen (Negative) U Methamphetamines Scrn (Negative) Ur MDMA Scrn (Ecstasy) (Negative) U Benzodiazepines Scrn (Negative) Urine Cocaine Screen (Negative) U Marijuana (THC) Screen (Negative) Urine Specific [place] (Normal) Ethyl Alcohol 316 H 222 H ( - 10) mg/dL Ur Creatinine (Normal) SARS-CoV-2 (PCR) Negative (Negative) Influenza A (RT-PCR) Flu a negative (NEGATIVE) Influenza B (RT-PCR) Flu b negative (NEGATIVE) RSV (PCR) Negative (Negative) MDM Narrative Medical decision making narrative: Blood pressure since arrival here in the emergency department has been relatively unremarkable. She was alert and oriented. No signs of alcohol withdrawal. Her alcohol level is significantly elevated which is most likely the cause of her lightheadedness and also her confusion that her family members been describing. I discussed options. Initially patient was not interested in detox. There was no indication for admission to the hospital currently. After period of observation and discussion with the family the patient states she is willing to pursue detox/rehab. Given her presenting alcohol level patient will need to remain here in the emergency department until her level improves. She was remained stable without signs of withdrawal. Alcohol level now is less than 250. We will start the process of finding detox facility for the patient. Care turned over to day provider to follow-up and disposition. Dr. Kendall-patient signed out to me by Dr. Urias I have seen evaluated patient myself. She is sitting in bed awake alert mildly tachycardic heart rate 110 feeling a little shaky. Alcohol level has come down from 449 to 222. Awaiting for detox bed [facility] has a bed in the morning, but not today. Calling other places. Willing to stay in ED until tomorrow. Dr. Paez - Patient stable overnight, required 2 doses of IV ativan, but hemodynamically stable in no acute distress. [facility] contacted for bed availability. Discharge Plan Departure Patient Disposition: Xfer Inpatient Rehab Clinical Impression: Alcohol intoxication Prescriptions: No Action thiamine HCl (vitamin B1) 100 mg tablet 100 mg PO DAILY Qty: 90 3RF spironolactone 50 mg tablet 50 mg PO DAILY Qty: 90 0RF Entresto 24-26 mg tablet 1 tab PO BID Qty: 180 0RF alendronate 70 mg tablet See Rx Instructions .ROUTE .COMPLEX Qty: 12 0RF Dose Instruction: TAKE 1 TABLET BY MOUTH ON FRIDAY EVERY WEEK Rx Instructions: TAKE 1 TABLET BY MOUTH ON FRIDAY EVERY WEEK baclofen 10 mg tablet 10 mg PO BID Qty: 180 3RF duloxetine 30 mg capsule,delayed release(DR/EC) 30 mg PO DAILY Qty: 90 3RF Rx Instructions: take in combination with 60mg capsule duloxetine 60 mg capsule, delayed rel sprinkle 60 mg PO DAILY Qty: 90 1RF mecobalamin (vitamin B12) 500 mcg tablet,chewable 500 mcg PO DAILY Jardiance 10 mg Tablet 10 mg PO DAILY olanzapine 7.5 mg tablet 7.5 mg PO QPM furosemide 40 mg tablet 40 mg PO 3XD metoprolol succinate 25 mg tablet extended release 24 hr 25 mg PO BID ondansetron 4 mg tablet,disintegrating 4 mg PO PRN PRN (Reason: Nausea And Vomiting) pantoprazole 40 mg tablet,delayed release (DR/EC) 40 mg PO BID potassium chloride 20 mEq tablet,ER particles/crystals 20 meq PO DAILY olanzapine 2.5 mg tablet 2.5 mg PO QAM Referrals: Andrew Herrera MD [Primary Care Provider] -
[2024-01-01 23:00] VITALS: BP 107/64; PULSE 84; RESP 10; O2SAT 97
[2024-01-01 23:30] VITALS: BP 107/53; PULSE 87; RESP 14; O2SAT 98
[2024-01-01 23:53] LABS: Pregnancy Test Urine Negative (Negative)
[2024-01-01 23:56] LABS: Appearance Urine UA CLEAR; Bilirubin Urine UA NEGATIVE (NEGATIVE); Color Urine UA YELLOW; Glucose Urine UA 1+ g/dL (Negative); Ketones Urine UA NEGATIVE (NEGATIVE); Leukocyte Esterase Urine UA NEGATIVE (NEGATIVE); Nitrite Urine UA NEGATIVE (Negative); Occult Blood Urine UA NEGATIVE (Negative); Protein Urine UA NEGATIVE (Negative); Urobilinogen Urine UA 0.2 E.U./dL (0.2)
[2024-01-01 23:59] LABS: UR Morphine/Opiate cutoff 300 Negative (Negative); Ur Creatinine Normal (Normal); Ur Specific Gravity Normal (Normal); Urine Amphetamines Negative (Negative); Urine Barbiturates Negative (Negative); Urine Benzodiazepines Negative (Negative); Urine Cocaine Negative (Negative); Urine MDMA Negative (Negative); Urine Methadone Negative (Negative); Urine Methamphetamines Negative (Negative); Urine Oxycodone Negative (Negative); Urine Phencyclidine Negative (Negative); Urine Tetrahydrocannabinol Negative (Negative); Urine Tricyclic Antidepressant Negative (Negative); Urine pH Normal (Normal)
[2024-01-02] VITALS (62 sets, daily range): BP systolic 90–126; BP diastolic 53–76; PULSE 75–123; RESP 7–25; O2SAT 90–100
[2024-01-02] LABS: pH Urine UA 5.5 (4.5-8.0)
[2024-01-02 00:02] LABS: Bacteria Urine Few (2-10); Culture Indicated Urine Cult Not Indicated; RBC Urine None Seen (0-5/HPF); Squamous Epithelial Cell Urine 5-10 /HPF (0-5/HPF); Urine Volume 10mL (spun); WBC Urine None Seen (0-5/HPF)
[2024-01-02 01:57] LABS: Influenza A - CEPHEID Flu A NEGATIVE (NEGATIVE); Influenza B - CEPHEID Flu B NEGATIVE (NEGATIVE); Respiratory Syncytial Virus Negative (Negative)
[2024-01-02 01:58] LABS: COVID-19 CEPHEID 4-PLEX PCR Negative (Negative)
[2024-01-02 02:27] LABS: Ethanol (ETOH) 316 mg/dL
[2024-01-02 06:20] LABS: Ethanol (ETOH) 222 mg/dL
--- NOTE | 2024-01-02 08:03 | PC.NURSE ---
Patient on the phone with [facility] in [place] for intake screening process.
[2024-01-02] MEDS: PHENobarbital 65 MG/ML VIAL 260 MG IV ×2 (08:10→12:20)
[2024-01-02] MEDS: THIAMINE 200 MG in SODIUM CHLORIDE 0.9% 100 ML 408 MG IV (08:10)
--- NOTE | 2024-01-02 08:46 | PC.NURSE ---
Updated and verified daily medication use and last known dose. Informed ED provider of the medication reconciliation and asked for their review of medication list for daily medications to be ordered so this RN can give them. Provider stated they would review.
[2024-01-02] MEDS: PANTOPRAZOLE DR 20 MG TABLET 40 MG PO ×2 (09:04→21:09)
[2024-01-02] MEDS: FOLIC ACID 1 MG TABLET PO (09:04)
[2024-01-02] MEDS: FUROSEMIDE 40 MG TABLET PO ×2 (09:05→21:08)
[2024-01-02] MEDS: METOPROLOL IR 25 MG TABLET PO ×2 (09:05→21:09)
--- NOTE | 2024-01-02 09:16 | PC.NURSE ---
This RN called pharmacy for the remaining medications that were due at 9am as they are not stocked within department for this RN to pull.
[2024-01-02] MEDS: BACLOFEN 10 MG TABLET PO ×2 (09:20→21:08)
[2024-01-02] MEDS: SPIRONOLACTONE 25 MG TABLET 50 MG PO (09:21)
[2024-01-02] MEDS: ONDANSETRON 4 MG/2 ML INJ IV (10:15)
[2024-01-02] MEDS: LORazepam 2 MG/ML INJ IV ×3 (10:15→19:25)
--- NOTE | 2024-01-02 12:27 | PC.NURSE ---
When this RN went to interview this patient for CIWA patient endorsed seeing dancing peters in the hallway. This RN immediately informed provider who then placed order for Phenobarbital. This RN administered medication as ordered.
[2024-01-02] MEDS: PHENobarbital 65 MG/ML VIAL 130 MG IV (16:15)
--- NOTE | 2024-01-02 17:49 | PC.NURSE ---
This RN informed patient of heart rate that has exceeded 120 beats per minute. Informed provider of new CIWA of 3. Provider noted and no new orders given.
--- NOTE | 2024-01-02 19:25 | PC.NURSE ---
Facility call list for patient transfer [facility]- has no bed but has been approved. Stated to call in the morning [facility]- full at this current moment [facility] full at this current moment [facility]- full and was stated to be that away until 01/03 [place] [facility]- left a voice mail. Voice mail stated if they do no call back they do not have beds [facility]- full at this current moment
[2024-01-02] MEDS: DULOXETINE 30 MG CAPSULE 90 MG PO (21:16)
[2024-01-03] VITALS (26 sets, daily range): BP systolic 107–129; BP diastolic 66–80; PULSE 77–124; RESP 10–23; O2SAT 95–100
--- NOTE | 2024-01-03 01:00 | PC.NURSE ---
CIWA not done pt allowed to sleep
--- NOTE | 2024-01-03 05:30 | PC.NURSE ---
pt wanting to walk around, TONY Abdullahi ambulated pt around nurses station and back to her room. and snack given
--- NOTE | 2024-01-03 05:50 | PC.NURSE ---
pt c/o feeling anxious, and states the visions are coming back, some nausea and a h/a. Dr Paez informed and new orders noted
[2024-01-03] MEDS: LORazepam 2 MG/ML INJ IV ×2 (05:55→09:29)
[2024-01-03] MEDS: THIAMINE 200 MG in SODIUM CHLORIDE 0.9% 100 ML 408 MG IV (09:08)
[2024-01-03] MEDS: BACLOFEN 10 MG TABLET PO (09:09)
[2024-01-03] MEDS: METOPROLOL IR 25 MG TABLET PO (09:10)
[2024-01-03] MEDS: PANTOPRAZOLE DR 20 MG TABLET 40 MG PO (09:10)
[2024-01-03] MEDS: SPIRONOLACTONE 25 MG TABLET 50 MG PO (09:10)
[2024-01-03] MEDS: FUROSEMIDE 40 MG TABLET PO (09:10)
[2024-01-03] MEDS: FOLIC ACID 1 MG TABLET PO (09:12)
[2024-01-03] MEDS: ONDANSETRON 4 MG/2 ML INJ IV (10:34)
== END 2024-01-03 11:05 ==
PROVIDERS: Emergency Medicine; Emergency Provider Emergency Medicine; Family Provider Family Medicine; PCP Family Medicine
DX: F10.129 Alcohol abuse with intoxication, unspecified (principal); Y90.8 Blood alcohol level of 240 mg/100 ml or more; Z20.822 Contact with and (suspected) exposure to COVID-19
CPT/HCPCS: 0241U; 36415; 80053; 80305; 80320; 81001; 81025; 83690; 85025; 96374; 96375; 96376; 99284; J2060; J2405; J2560

== ENCOUNTER 2024-01-03 16:43 | Emergency (ER) | payer OTHER, MEDICAID, SELFPAY ==
[2023-12-14 08:10] VITALS: BMI 23.0
[2024-01-03 16:50] VITALS: BP 138/78; PULSE 83; RESP 16; TEMP 37; O2SAT 99; BMI 22.1
--- NOTE | 2024-01-03 17:18 | PC.NURSE ---
Patient returned from [facility] via [facility]. Patient mother had dropped off bottles of her medications for her intake at the facility. These medications were transported back with the patient. This RN collected the bottles within a plastic bag. This RN called coordinator Saige who took the plastic bag of medications and locked them in the safe upstairs for the pharmacy tomorrow. All bottles are labeled from pharmacy.
[2024-01-03 17:48] VITALS: BP 122/66; PULSE 83; RESP 16; TEMP 36.4; O2SAT 100
--- NOTE | 2024-01-03 18:12 | ED.ALCOHOL ---
HPI - Alcohol General Chief Complaint: Toxicology Problem Stated Complaint: luna from [facility] Time Seen by Provider: 01/03/24 17:47 History of Present Illness HPI narrative: 38-year-old female presents via EMS from [facility] detox after being rejected from the facility. Patient discharged from our facility to [facility] for alcohol detox at 11am. At 1630 [facility] called EMS to bring patient back to their facility since she was more complex than they could handle. Patient reportedly unable to urinate for several hours and had an episode of emesis. For some reason there was a fear that patient had kidney failure despite recent normal labs and she was sent back. Related Data Home Medications Medication Instructions Recorded Confirmed mecobalamin (vitamin B12) 500 mcg 500 mcg PO DAILY 02/07/23 01/02/24 chewable tablet olanzapine 2.5 mg tablet 2.5 mg PO QAM 02/18/23 01/02/24 empagliflozin 10 mg tablet 10 mg PO DAILY 09/23/23 01/02/24 (Jardiance) furosemide 40 mg tablet 40 mg PO 3XD 01/02/24 01/02/24 metoprolol succinate 25 mg 25 mg PO BID 01/02/24 01/02/24 tablet,extended release 24 hr olanzapine 7.5 mg tablet 7.5 mg PO QPM 01/02/24 01/02/24 ondansetron 4 mg disintegrating 4 mg PO PRN PRN Nausea And Vomiting 01/02/24 01/02/24 tablet pantoprazole 40 mg tablet,delayed 40 mg PO BID 01/02/24 01/02/24 release potassium chloride 20 mEq 20 meq PO DAILY 01/02/24 01/02/24 tablet,extended release(part/cryst) Previous Rx's Medication Instructions Recorded thiamine HCl (vitamin B1) 100 mg 100 mg PO DAILY #90 tabs 12/31/22 tablet spironolactone 50 mg tablet 50 mg PO DAILY #90 tabs 04/10/23 baclofen 10 mg tablet 10 mg PO BID #180 tabs 10/03/23 duloxetine 30 mg capsule,delayed 30 mg PO DAILY #90 caps 10/03/23 release duloxetine 60 mg capsule,delayed 60 mg PO DAILY #90 caps 10/03/23 release sprinkle sacubitril 24 mg-valsartan 26 mg 1 tab PO BID #180 tabs 10/22/23 tablet (Entresto) alendronate 70 mg tablet See Rx Instructions .Route 12/23/23 .COMPLEX #12 tabs Allergies Allergy/AdvReac Type Severity Reaction Status Date / Time gabapentin AdvReac Intermediate Mental Verified 12/13/23 21:19 status changes Review of Systems Review of Systems Narrative: negative except as per HPI Patient History Medical History Pancytopenia Tricuspid regurgitation Mitral regurgitation HFrEF (heart failure with reduced ejection fraction) Left ventricular hypokinesis Hip pain, bilateral 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 Leukocytopenia GERD (gastroesophageal reflux disease) Caloric malnutrition Anorexia nervosa Neuropathy Depression Anxiety Alcoholism in remission Ankle pain, right Alcoholism Anorexia Surgical History History of total hip arthroplasty Social History household members: none Smoking Status: Current every day smoker Smoking Status: Current every day smoker tobacco type: vaping alcohol intake frequency: 3 or more drinks per day Alcohol type: hard liquor Substance Use Type: does not use Exam Initial Vital Signs Initial Vital Signs: Vital Signs Temperature 98.6 F 01/03/24 16:50 Pulse Rate 83 01/03/24 16:50 Respiratory Rate 16 01/03/24 16:50 Blood Pressure 138/78 01/03/24 16:50 Pulse Oximetry 99 01/03/24 16:50 Oxygen Delivery Method Room Air 01/03/24 16:50 Const: Awake, alert, no acute distress Cardiac: regular rate, regular rhythm RESP: unlabored, clear bilaterally, no wheezing GI: Soft, nontender, nondistended, no rebound, no guarding MSK: Atraumatic, full range of motion, pulses equal Skin: Warm, Dry, intact, no rashes Neuro: AO x3, CN II-XII grossly intact, moves all extremities Course Orders Ordered: ED Orders 01/03/24 19:05 CBC Auto Diff [Complete Blood Count AUTO DIFF] Stat CMP [Comprehensive Metabolic Panel] Stat 01/04/24 02:06 BMP [Basic Metabolic Panel] Stat Discontinued Medications Baclofen (Baclofen 10 Mg Tablet) 10 mg PO NOW ONE Stop: 01/03/24 22:52 Last Admin: 01/03/24 23:26 Dose: 10 mg Documented By: ANTHONY Sodium Chloride (Normal Saline 0.9%) 500 mls @ 1,000 mls/hr IV BOLUS ONE Stop: 01/03/24 20:00 Last Infusion: 01/03/24 20:40 Dose: Infused Documented By: Admin: 01/03/24 20:04 Dose: 1,000 mls/hr Documented By: SRI Lorazepam (Lorazepam 2 Mg/Ml Inj) 2 mg IV NOW ONE Stop: 01/03/24 20:36 Last Admin: 01/03/24 20:39 Dose: 2 mg Documented By: ANTHONY Metoprolol Tartrate (Metoprolol Ir 25 Mg Tablet) 25 mg PO NOW ONE Stop: 01/03/24 22:52 Last Admin: 01/03/24 23:27 Dose: 25 mg Documented By: ANTHONY Ondansetron HCl (Ondansetron 4 Mg Odt) 4 mg SL NOW ONE Stop: 01/03/24 18:14 Last Admin: 01/03/24 18:16 Dose: 4 mg Documented By: RB Pantoprazole Sodium (Pantoprazole Dr 20 Mg Tablet) 20 mg PO NOW ONE Stop: 01/03/24 22:53 Last Admin: 01/03/24 23:27 Dose: 20 mg Documented By: ANTHONY Vital Signs Vital signs: Vital Signs - 8 hr 01/04/24 03:29 Pulse Rate 77 Respiratory Rate 16 Blood Pressure 95/65 Pulse Oximetry 99 Oxygen Delivery Method Room Air MDM - Alcohol Lab Data 01/03/24 19:05 01/04/24 02:06 Labs: Lab Results 01/03/24 01/04/24 Range/Units 19:05 02:06 WBC 2.1 L (4.5-11.0) X10^3/uL RBC 3.85 L (4.0-5.2) X10^6/uL Hgb 12.6 (12.0-16.0) g/dL Hct 36.3 (36-46) % MCV 94.2 (80-100) fL MCH 32.7 (26-34) PG MCHC 34.7 (30-36) % RDW 15.7 H (11.6-14.8) % Plt Count 102 L (150-400) X10^3/uL Neut % (Auto) 49.5 L (50-75) % Lymph % (Auto) 35.7 D (25-40) % [place] % (Auto) 11.5 (3-14) % Eos % (Auto) 1.4 L (2-4) % Baso % (Auto) 1.9 (0-2) % Neut # (Auto) 1000 L (9733-6297) /uL Lymph # (Auto) 700 L (4068-9339) /uL [place] # (Auto) 200 (0-900) /uL Eos # (Auto) 0 (0-450) /uL Baso # (Auto) 0 (0-100) /uL Sodium 120 L D 125 L (137-145) mmol/L Potassium 4.3 3.2 L (3.4-5.1) mmol/L Chloride 81 L 92 L (98-107) mmol/L Carbon Dioxide 31 29 (22-32) mmol/L BUN 12 8 (7-17) mg/dL Creatinine 0.76 0.67 (0.52-1.04) mg/dL Estimated GFR > 60 > 60 (>60) mL/min BUN/Creatinine Ratio 15.8 11.9 (6-22) Glucose 115 H 131 H (70-100) mg/dL Calcium 9.8 9.4 (8.4-10.2) mg/dL Total Bilirubin 1.0 (0.2-1.3) mg/dL AST 55 H (14-36) IU/L ALT 25 (<35) IU/L Alkaline Phosphatase 85 (38-126) U/L Total Protein 7.5 (6.3-8.2) g/dL Albumin 4.9 (3.5-5.0) g/dL Globulin 2.6 (1.7-4.1) g/dL Albumin/Globulin Ratio 1.9 (1.0-2.8) Urine Dip Bedside Urine Glucose 1000 mg/dl Bedside Urine Bilirubin - Negative Bedside Urine Ketone - Negative Urine Specific [place] 1.010 Bedside Urine Occult Blood - Negative Bedside Urine pH 7.0 Bedside Urine Protein - Negative Bedside Urine Urobilinogen 0.2 Bedside Urine Nitrite - Negative Bedside Urine Leukocytes - Negative Esterase MDM Narrative Medical decision making narrative: Patient is sent back to ER due to fears that medical complexity greater than what [facility] can provide. Patient is awake, alert, no significant distress. Mother at bedside states that patient seems to be ?out of it? and hallucinating like when she is detoxing. Patient is able to appropriately answer questions and does not seem to be responding to inappropriate stimuli. Patient able to ambulate without difficulty and does not appear to be any different than when she left our facility earlier this morning. Yesterday all detox facilities were full and dark currently no beds available. Repeat laboratory work ordered, however if within normal limits patient will be discharged home. Laboratory work is significant for sodium 120, 2 days prior sodium 132. Patient had received fluids, spironolactone, furosemide while at her previous visit. Small bolus of IV fluids ordered and patient given food to eat. We will repeat laboratory work overnight to check sodium levels. Repeat sodium 125. On repeat evaluation patient is sleeping comfortably in bed, when woken she is alert, oriented, not tachycardic or tremulous, shows no signs of acute alcohol withdrawal. Patient and her mother given self-referral packet to [facility]. MECHANICAL OXIDIZER called [facility] in the evening and there should be a lot of beds available per MECHANICAL OXIDIZER report. MECHANICAL OXIDIZER gave patient and mother packet for [facility] with number and address. Patient discharged to care of her mother in stable condition. Discharge Plan Departure Patient Disposition: Home Clinical Impression: Alcohol use disorder, severe, dependence, Hyponatremia Instructions: DI for Hyponatremia Activity Restrictions/Additional Instructions: Please follow the instructions to get to [facility] Prescriptions: No Action thiamine HCl (vitamin B1) 100 mg tablet 100 mg PO DAILY Qty: 90 3RF spironolactone 50 mg tablet 50 mg PO DAILY Qty: 90 0RF Entresto 24-26 mg tablet 1 tab PO BID Qty: 180 0RF alendronate 70 mg tablet See Rx Instructions .ROUTE .COMPLEX Qty: 12 0RF Dose Instruction: TAKE 1 TABLET BY MOUTH ON FRIDAY EVERY WEEK Rx Instructions: TAKE 1 TABLET BY MOUTH ON FRIDAY EVERY WEEK baclofen 10 mg tablet 10 mg PO BID Qty: 180 3RF duloxetine 30 mg capsule,delayed release(DR/EC) 30 mg PO DAILY Qty: 90 3RF Rx Instructions: take in combination with 60mg capsule duloxetine 60 mg capsule, delayed rel sprinkle 60 mg PO DAILY Qty: 90 1RF mecobalamin (vitamin B12) 500 mcg tablet,chewable 500 mcg PO DAILY Jardiance 10 mg Tablet 10 mg PO DAILY olanzapine 7.5 mg tablet 7.5 mg PO QPM furosemide 40 mg tablet 40 mg PO 3XD metoprolol succinate 25 mg tablet extended release 24 hr 25 mg PO BID ondansetron 4 mg tablet,disintegrating 4 mg PO PRN PRN (Reason: Nausea And Vomiting) pantoprazole 40 mg tablet,delayed release (DR/EC) 40 mg PO BID potassium chloride 20 mEq tablet,ER particles/crystals 20 meq PO DAILY olanzapine 2.5 mg tablet 2.5 mg PO QAM Referrals: Andrew Herrera MD [Primary Care Provider] - Stand Alone Forms: Patient Portal/API
[2024-01-03] MEDS: ONDANSETRON 4 MG ODT SL (18:16)
--- NOTE | 2024-01-03 18:24 | PC.NURSE ---
Patient didn't eat at all while away from facility. Provider approved patient to eat. This RN gave patient Korean yogurt, half turkey sandwich, and a citrus soda.
[2024-01-03 18:52] VITALS: BP 127/75; PULSE 87; RESP 16; TEMP 35.6; O2SAT 100
[2024-01-03 19:13] LABS: Add Manual Diff / Slide Review NO; Basophils Absolute Auto 0 /uL (0-100); Basophils Percent Auto 1.9 % (0-2); Eosinophils Absolute Auto 0 /uL (0-450); Eosinophils Percent Auto 1.4 % (2-4); Hematocrit 36.3 % (36-46); Hemoglobin 12.6 g/dL (12.0-16.0); Lymphocytes Absolute Auto 700 /uL (1100-4500); Lymphocytes Percent Auto 35.7 % (25-40); Mean Corpuscular HGB Conc 34.7 % (30-36); Mean Corpuscular Hemoglobin 32.7 PG (26-34); Mean Corpuscular Volume 94.2 fL (80-100); Monocytes Absolute Auto 200 /uL (0-900); Monocytes Percent Auto 11.5 % (3-14); Neutrophils Absolute Auto 1000 /uL (1500-7000); Neutrophils Percent Auto 49.5 % (50-75); Platelet Count 102 X10^3/uL (150-400); Red Blood Cell Count 3.85 X10^6/uL (4.0-5.2); Red Cell Distribution Width 15.7 % (11.6-14.8); White Blood Cell Count 2.1 X10^3/uL (4.5-11.0)
[2024-01-03 19:25] LABS: Alanine Aminotransferase 25 IU/L (<35); Albumin 4.9 g/dL (3.5-5.0); Albumin Globulin Ratio 1.9 (1.0-2.8); Alkaline Phosphatase 85 U/L (38-126); Aspartate Aminotransferase 55 IU/L (14-36); BUN Creatinine Ratio 15.8 (6-22); Blood Urea Nitrogen 12 mg/dL (7-17); Calcium 9.8 mg/dL (8.4-10.2); Carbon Dioxide 31 mmol/L (22-32); Chloride 81 mmol/L (98-107); Estimated Glomerular Filt Rate > 60 mL/min (>60); Globulin 2.6 g/dL (1.7-4.1); Glucose 115 mg/dL (70-100); HEMOLYSIS < 15 (0-50); Potassium 4.3 mmol/L (3.4-5.1); Sodium 120 mmol/L (137-145); Total Protein 7.5 g/dL (6.3-8.2)
--- NOTE | 2024-01-03 19:35 | CM.SWNOTE ---
ED FREIGHT CALLER Note Pt is a 38yo F, presenting today for ETOH withdrawal after being discharge earlier today to [facility]. Per Megan ([facility] RN), after being accepted by [facility], pt is being sent back to [facility] because of health complications. She is above our level of care. She can't urinate even after 3 gallons of taking in liquids. Ita RN stated pt had three emesis episodes and they do not feel comfortable with her current state. FREIGHT CALLER called [facility] regarding bed census; currently full but we should have a lot of beds tomorrow morning. FREIGHT CALLER called [facility] regarding bed census; currently full and will need referral from specific crisis responder in [facility]. FREIGHT CALLER called [facility]; after office hours and call was dropped. FREIGHT CALLER met with pt and mother at bedside, introduced self and role. FREIGHT CALLER discussed plan of care with patient regarding possibly discharging tonight from ED when medically cleared and self-referring to [facility] in the morning. Pt's mother stated she was confused regarding plan of care and there was no clear reason given at [facility] as to why she could not continue detox there. FREIGHT CALLER validated response through reflective listening and discussed plan of calling [facility] at 0600 and to refer to ED visits with intake specialists. FREIGHT CALLER provided [facility] informational handout with number and address. Plan: Pt will discharge home if medically stable and will attempt to secure detox bed at [facility] in the am. JULY Muñoz
[2024-01-03] MEDS: SODIUM CHLORIDE 0.9% 500 ML 1000 ML IV (20:04)
[2024-01-03] MEDS: LORazepam 2 MG/ML INJ IV (20:39)
[2024-01-03] MEDS: BACLOFEN 10 MG TABLET PO (23:26)
[2024-01-03] MEDS: PANTOPRAZOLE DR 20 MG TABLET PO (23:27)
[2024-01-03] MEDS: METOPROLOL IR 25 MG TABLET PO (23:27)
[2024-01-04 02:24] LABS: BUN Creatinine Ratio 11.9 (6-22); Blood Urea Nitrogen 8 mg/dL (7-17); Calcium 9.4 mg/dL (8.4-10.2); Carbon Dioxide 29 mmol/L (22-32); Chloride 92 mmol/L (98-107); Estimated Glomerular Filt Rate > 60 mL/min (>60); Glucose 131 mg/dL (70-100); HEMOLYSIS < 15 (0-50); Potassium 3.2 mmol/L (3.4-5.1); Sodium 125 mmol/L (137-145)
[2024-01-04 03:29] VITALS: BP 95/65; PULSE 77; RESP 16; O2SAT 99
== END 2024-01-04 03:55 | disposition home or self-care (01) ==
PROVIDERS: Emergency Provider Emergency Medicine; Family Provider Family Medicine; PCP Family Medicine
DX: Z79.899 Other long term (current) drug therapy (principal); F10.20 Alcohol dependence, uncomplicated; E87.1 Hypo-osmolality and hyponatremia
CPT/HCPCS: 36415; 80048; 80053; 81003; 85025; 96361; 96374; 99284; J2060

== ENCOUNTER → 2024-05-11 11:27 | Outpatient (CLI) | payer OTHER, MEDICAID, SELFPAY ==
[2023-12-14 08:10] VITALS: BMI 23.0
[2024-05-11 11:56] LABS: Add Manual Diff / Slide Review NO; Basophils Absolute Auto 0 /uL (0-100); Basophils Percent Auto 0.8 % (0-2); Eosinophils Absolute Auto 0 /uL (0-450); Eosinophils Percent Auto 0.3 % (2-4); Hematocrit 39.7 % (36-46); Hemoglobin 13.4 g/dL (12.0-16.0); Lymphocytes Absolute Auto 700 /uL (1100-4500); Lymphocytes Percent Auto 34.9 % (25-40); Mean Corpuscular HGB Conc 33.8 % (30-36); Mean Corpuscular Hemoglobin 32.3 PG (26-34); Mean Corpuscular Volume 95.5 fL (80-100); Monocytes Absolute Auto 200 /uL (0-900); Monocytes Percent Auto 11.1 % (3-14); Neutrophils Absolute Auto 1100 /uL (1500-7000); Neutrophils Percent Auto 52.9 % (50-75); Platelet Count 210 X10^3/uL (150-400); Red Blood Cell Count 4.16 X10^6/uL (4.0-5.2); Red Cell Distribution Width 13.8 % (11.6-14.8); White Blood Cell Count 2.1 X10^3/uL (4.5-11.0)
[2024-05-11 12:22] LABS: Alanine Aminotransferase 19 IU/L (<35); Albumin 4.2 g/dL (3.5-5.0); Albumin Globulin Ratio 1.3 (1.0-2.8); Alkaline Phosphatase 62 U/L (38-126); Aspartate Aminotransferase 32 IU/L (14-36); BUN Creatinine Ratio 4.6 (6-22); Bilirubin Total 0.4 mg/dL (0.2-1.3); Blood Urea Nitrogen 5 mg/dL (7-17); Calcium 9.8 mg/dL (8.4-10.2); Carbon Dioxide 27 mmol/L (22-32); Chloride 104 mmol/L (98-107); Estimated Glomerular Filt Rate > 60 mL/min (>60); Globulin 3.2 g/dL (1.7-4.1); Glucose 83 mg/dL (70-100); HEMOLYSIS < 15 (0-50); Potassium 4.3 mmol/L (3.4-5.1); Sodium 138 mmol/L (137-145); Total Protein 7.4 g/dL (6.3-8.2)
[2024-05-11 13:42] LABS: TSH w/ Reflex to FT4 0.58 uIU/mL (0.47-4.68)
== END ==
PROVIDERS: Family Provider Family Medicine; PCP Family Medicine; Referring Provider Family Medicine; Visit Provider Family Medicine
DX: N17.9 Acute kidney failure, unspecified (principal); R74.01 Elevation of levels of liver transaminase levels; I50.20 Unspecified systolic (congestive) heart failure; M17.12 Unilateral primary osteoarthritis, left knee; F10.90 Alcohol use, unspecified, uncomplicated
CPT/HCPCS: 36415; 80053; 84443; 85025

== ENCOUNTER → 2024-07-26 14:38 | Outpatient (CLI) | payer OTHER, MEDICAID, SELFPAY ==
[2023-12-14 08:10] VITALS: BMI 23.0
[2024-07-27 13:30] LABS: Add Manual Diff / Slide Review NO; Basophils Absolute Auto 0 /uL (0-100); Basophils Percent Auto 0.7 % (0-2); Eosinophils Absolute Auto 0 /uL (0-450); Eosinophils Percent Auto 0.2 % (2-4); Hematocrit 43.2 % (36-46); Hemoglobin 14.5 g/dL (12.0-16.0); Lymphocytes Absolute Auto 1100 /uL (1100-4500); Lymphocytes Percent Auto 41.8 % (25-40); Mean Corpuscular HGB Conc 33.5 % (30-36); Mean Corpuscular Hemoglobin 31.5 PG (26-34); Monocytes Absolute Auto 400 /uL (0-900); Monocytes Percent Auto 15.9 % (3-14); Neutrophils Absolute Auto 1100 /uL (1500-7000); Neutrophils Percent Auto 41.4 % (50-75); Platelet Count 162 X10^3/uL (150-400); Red Blood Cell Count 4.59 X10^6/uL (4.0-5.2); Red Cell Distribution Width 13.3 % (11.6-14.8); White Blood Cell Count 2.6 X10^3/uL (4.5-11.0)
[2024-07-27 14:00] LABS: HEMOLYSIS 49 (0-50); Iron 128 ug/dL (37-170)
[2024-07-27 14:03] LABS: Alanine Aminotransferase 21 IU/L (<35); Albumin 4.7 g/dL (3.5-5.0); Albumin Globulin Ratio 1.7 (1.0-2.8); Alkaline Phosphatase 56 U/L (38-126); Aspartate Aminotransferase 40 IU/L (14-36); BUN Creatinine Ratio 10.4 (6-22); Bilirubin Total 0.7 mg/dL (0.2-1.3); Blood Urea Nitrogen 11 mg/dL (7-17); Calcium 10.3 mg/dL (8.4-10.2); Carbon Dioxide 37 mmol/L (22-32); Chloride 90 mmol/L (98-107); Estimated Glomerular Filt Rate > 60 mL/min (>60); Globulin 2.8 g/dL (1.7-4.1); Glucose 80 mg/dL (70-100); HEMOLYSIS 49 (0-50); Potassium 3.6 mmol/L (3.4-5.1); Sodium 137 mmol/L (137-145); Total Protein 7.5 g/dL (6.3-8.2)
[2024-07-27 14:14] LABS: Percent Iron Saturation 54 % (15-50); Total Iron Binding Capacity 237 ug/dL (265-497); Transferrin 229 mg/dL (206-381)
[2024-07-27 14:36] LABS: Ferritin 37 ng/mL (6-137)
== END ==
PROVIDERS: Family Provider Family Medicine; PCP Family Medicine; Referring Provider Family Medicine; Visit Provider Family Medicine
DX: E87.6 Hypokalemia (principal); D72.819 Decreased white blood cell count, unspecified; D50.9 Iron deficiency anemia, unspecified; I50.20 Unspecified systolic (congestive) heart failure; E83.42 Hypomagnesemia; F10.90 Alcohol use, unspecified, uncomplicated; N17.9 Acute kidney failure, unspecified; K70.30 Alcoholic cirrhosis of liver without ascites; F50.00 Anorexia nervosa, unspecified; F32.9 Major depressive disorder, single episode, unspecified; R74.01 Elevation of levels of liver transaminase levels; I50.21 Acute systolic (congestive) heart failure
CPT/HCPCS: 36415; 80053; 82310; 82728; 83540; 83550; 83970; 85025

== ENCOUNTER → 2024-07-30 10:22 | Outpatient (CLI) | payer OTHER, MEDICAID, SELFPAY ==
[2023-12-14 08:10] VITALS: BMI 23.0
[2024-07-31 09:36] LABS: Parathyroid Hormone, Intact 20 pg/mL (15-65)
== END ==
PROVIDERS: Family Provider Family Medicine; PCP Family Medicine; Referring Provider Family Medicine; Visit Provider Family Medicine
DX: E87.6 Hypokalemia (principal); F10.90 Alcohol use, unspecified, uncomplicated; D72.819 Decreased white blood cell count, unspecified; D50.9 Iron deficiency anemia, unspecified; I50.20 Unspecified systolic (congestive) heart failure; E83.42 Hypomagnesemia; N17.9 Acute kidney failure, unspecified; K70.30 Alcoholic cirrhosis of liver without ascites
CPT/HCPCS: 36415; 82310; 83970

== ENCOUNTER → 2024-08-06 14:24 | Outpatient (CLI) | payer OTHER, MEDICAID, SELFPAY ==
[2023-12-14 08:10] VITALS: BMI 23.0
== END ==
PROVIDERS: Family Provider Family Medicine; PCP Family Medicine; Referring Provider Family Medicine; Visit Provider Family Medicine
DX: E83.52 Hypercalcemia (principal)
CPT/HCPCS: 36415; 82330; 82397

== ENCOUNTER → 2024-08-24 09:17 | Outpatient (CLI) | payer OTHER, MEDICAID, SELFPAY ==
[2023-12-14 08:10] VITALS: BMI 23.0
[2024-08-24 13:39] LABS: Alanine Aminotransferase 26 IU/L (<35); Albumin 4.3 g/dL (3.5-5.0); Albumin Globulin Ratio 1.8 (1.0-2.8); Alkaline Phosphatase 45 U/L (38-126); BUN Creatinine Ratio 9.3 (6-22); Bilirubin Total 0.7 mg/dL (0.2-1.3); Blood Urea Nitrogen 8 mg/dL (7-17); Calcium 9.7 mg/dL (8.4-10.2); Carbon Dioxide 29 mmol/L (22-32); Chloride 99 mmol/L (98-107); Estimated Glomerular Filt Rate > 60 mL/min (>60); Globulin 2.4 g/dL (1.7-4.1); Glucose 104 mg/dL (70-100); Sodium 134 mmol/L (137-145); Total Protein 6.7 g/dL (6.3-8.2)
[2024-08-24 13:44] LABS: HEMOLYSIS 72 (0-50); Potassium 4.1 mmol/L (3.4-5.1)
[2024-08-24 13:46] LABS: Aspartate Aminotransferase 49 IU/L (14-36)
== END ==
PROVIDERS: Family Provider Family Medicine; PCP Family Medicine; Referring Provider Family Medicine; Visit Provider Family Medicine
DX: D61.818 Other pancytopenia (principal); E83.52 Hypercalcemia
CPT/HCPCS: 80053

== ENCOUNTER → 2024-09-03 10:22 | Outpatient (CLI) | payer OTHER, MEDICAID, SELFPAY ==
[2023-12-14 08:10] VITALS: BMI 23.0
[2024-09-03 11:22] LABS: HEMOLYSIS 27 (0-50); Iron 140 ug/dL (37-170)
[2024-09-03 11:31] LABS: Add Manual Diff / Slide Review NO; Basophils Absolute Auto 0 /uL (0-100); Eosinophils Absolute Auto 0 /uL (0-450); Eosinophils Percent Auto 0.1 % (2-4); Hematocrit 42.2 % (36-46); Hemoglobin 14.6 g/dL (12.0-16.0); Lymphocytes Absolute Auto 1000 /uL (1100-4500); Lymphocytes Percent Auto 45.3 % (25-40); Mean Corpuscular HGB Conc 34.7 % (30-36); Mean Corpuscular Hemoglobin 32.7 PG (26-34); Mean Corpuscular Volume 94.5 fL (80-100); Monocytes Absolute Auto 300 /uL (0-900); Monocytes Percent Auto 15.1 % (3-14); Neutrophils Absolute Auto 800 /uL (1500-7000); Neutrophils Percent Auto 38.5 % (50-75); Platelet Count 220 X10^3/uL (150-400); Red Blood Cell Count 4.46 X10^6/uL (4.0-5.2); Red Cell Distribution Width 14.6 % (11.6-14.8); White Blood Cell Count 2.1 X10^3/uL (4.5-11.0)
[2024-09-03 11:32] LABS: Percent Iron Saturation 62 % (15-50); Total Iron Binding Capacity 226 ug/dL (265-497); Transferrin 257 mg/dL (206-381)
[2024-09-03 11:57] LABS: Alanine Aminotransferase 29 IU/L (<35); Albumin 4.9 g/dL (3.5-5.0); Albumin Globulin Ratio 1.6 (1.0-2.8); Alkaline Phosphatase 48 U/L (38-126); Aspartate Aminotransferase 47 IU/L (14-36); BUN Creatinine Ratio 6.8 (6-22); Bilirubin Total 0.9 mg/dL (0.2-1.3); Blood Urea Nitrogen 8 mg/dL (7-17); Calcium 10.3 mg/dL (8.4-10.2); Chloride 79 mmol/L (98-107); Estimated Glomerular Filt Rate > 60 mL/min (>60); Globulin 3.1 g/dL (1.7-4.1); Glucose 97 mg/dL (70-100); Potassium 3.1 mmol/L (3.4-5.1); Sodium 126 mmol/L (137-145)
[2024-09-03 12:00] LABS: Ferritin 91 ng/mL (6-137)
[2024-09-03 12:03] LABS: HEMOLYSIS 30 (0-50)
[2024-09-03 12:13] LABS: Carbon Dioxide 40 mmol/L (22-32)
[2024-09-03 12:29] LABS: Folate > 20.0 ng/mL (2.76-20.0); Vitamin B12 784 pg/mL (239-931)
[2024-09-04 10:08] LABS: Calcium 10.5 mg/dL (8.7-10.2); Parathyroid Hormone, Intact 68 pg/mL (15-65)
== END ==
PROVIDERS: Family Provider Family Medicine; PCP Family Medicine; Referring Provider Internal Medicine Hematology & Oncology; Visit Provider Internal Medicine Hematology & Oncology
DX: D63.8 Anemia in other chronic diseases classified elsewhere (principal); D61.818 Other pancytopenia; E83.52 Hypercalcemia
CPT/HCPCS: 36415; 80053; 82310; 82607; 82728; 82746; 83540; 83550; 83970; 85025

== ENCOUNTER 2024-09-03 13:48 | Emergency (ER) | payer OTHER, MEDICAID, SELFPAY ==
[2023-12-14 08:10] VITALS: BMI 23.0
[2024-09-03 14:00] VITALS: BP 83/44; PULSE 58; RESP 16; TEMP 36.4; O2SAT 100; BMI 15.2
[2024-09-03 15:22] VITALS: PULSE 54; O2SAT 100
[2024-09-03 15:30] VITALS: BP 93/60; PULSE 55; O2SAT 100
--- NOTE | 2024-09-03 15:44 | ED.RECABL ---
HPI - Recheck/Abnormal Lab/Rx General Chief Complaint: Recheck/Abnormal Lab/Rx Stated Complaint: sent by PCP abnormal labs Time Seen by Provider: 09/03/24 14:33 Source: patient, RN notes reviewed and old records reviewed Mode of arrival: Family Vehicle Limitations: no limitations History of Present Illness HPI narrative: 38-year-old female history of chronic alcohol use, cirrhosis, congestive heart failure secondary to both with the ejection fraction at 25%. Patient presents today had outpatient labs was part of regular follow up and was told to come to the ER because of her electrolytes and CO2 level being deranged. Patient states she has felt a little dizzy but denies any other symptoms, no fevers or chills, no headache, no chest pain, no shortness of breath, denies any nausea or vomiting, no diarrhea or constipation. No urinary symptoms. Patient denies any new swelling of her extremities. She states she feels overall well and would like to return home. Reviewed her labs her sodium was low 126 not her lowest point but she was most recently in the 130s. She notes she has oral potassium at home. Patient notes that she takes furosemide, spironolactone, Jardiance metoprolol, several other medications she does not recall all the names. She states that she has oral potassium available at home. Has reported allergies/adverse reaction to gabapentin. Does use tobacco, states last drink was in December 2023 denies recreational drugs. Patient was hypotensive in the 80s she states that has a normal pressure for her. Related Data Home Medications Medication Instructions Recorded Confirmed mecobalamin (vitamin B12) 500 mcg 500 mcg PO DAILY 02/07/23 08/30/24 chewable tablet empagliflozin 10 mg tablet 10 mg PO DAILY 09/23/23 08/30/24 (Jardiance) metoprolol succinate 25 mg 25 mg PO BID 01/02/24 08/30/24 tablet,extended release 24 hr potassium chloride 20 mEq 20 meq PO DAILY 01/02/24 08/30/24 tablet,extended release(part/cryst) sacubitril 24 mg-valsartan 26 mg 0.5 tab PO BID 02/10/24 08/30/24 tablet (Entresto) furosemide 40 mg tablet 20 mg PO BID 05/11/24 08/30/24 rosuvastatin 5 mg tablet 5 mg PO DAILY 08/17/24 08/30/24 estradiol 0.25 mg/0.25 gram (0.1 1 packet transdermal DAILY 08/30/24 08/30/24 %) transdermal gel packet trazodone 50 mg tablet 50 mg PO BEDTIME 08/30/24 Previous Rx's Medication Instructions Recorded duloxetine 60 mg capsule,delayed 120 mg (2 x 60 mg) PO DAILY #180 02/10/24 release sprinkle caps spironolactone 50 mg tablet 150 mg (3 x 50 mg) PO QAM #90 tabs 02/18/24 ondansetron 4 mg disintegrating 4 mg PO PRN PRN Nausea And 03/01/24 tablet Vomiting #30 tabs pantoprazole 40 mg tablet,delayed 40 mg PO BID #60 tabs 04/15/24 release baclofen 10 mg tablet 10 mg PO Q8H #180 tabs 05/11/24 olanzapine 2.5 mg tablet 5 mg (2 x 2.5 mg) PO QAM #180 tabs 07/19/24 thiamine HCl (vitamin B1) 100 mg 100 mg PO DAILY #90 tabs 07/27/24 tablet olanzapine 7.5 mg tablet 7.5 mg PO QPM #90 tabs 07/28/24 alendronate 70 mg tablet See Rx Instructions .Route 08/23/24 .COMPLEX #12 tabs buspirone 5 mg tablet 5 mg PO BID #60 tabs 08/30/24 Allergies Allergy/AdvReac Type Severity Reaction Status Date / Time gabapentin AdvReac Intermediate Mental Verified 08/24/24 14:11 status changes Review of Systems Review of Systems ROS Unobtainable: All systems reviewed & are unremarkable except as noted in HPI and below Patient History Medical History Anorexia nervosa, binge eating/purging type Alcohol use disorder, severe, in early remission Generalized anxiety disorder Hypercalcemia Alcohol use disorder Pancytopenia Tricuspid regurgitation Mitral regurgitation HFrEF (heart failure with reduced ejection fraction) Left ventricular hypokinesis Hip pain, bilateral 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 HEENT: Head normocephalic, atraumatic, EOMI, pupils reactive, face symmetric, moist mucous membranes NECK: Supple, full range of motion CARDIOVASCULAR: Regular rate and rhythm without murmurs, rubs or gallops. RESPIRATORY: Breath sounds equal bilaterally, no wheezes rales or rhonchi. ABDOMEN: Soft, nontender. Normoactive bowel sounds all 4 quadrants. No guarding or rebound, rigidity, no mass : No CVA tenderness EXTREMITIES: Normal range of motion, no clubbing or edema. Neurovascularly intact NEUROLOGICAL: Cranial nerves II through XII grossly intact. Moving all extremities SKIN: Warm, dry, no petechiae, no rashes or lesions. Initial Vital Signs Initial Vital Signs: Vital Signs Temperature 97.6 F 09/03/24 14:00 Pulse Rate 58 L 09/03/24 14:00 Respiratory Rate 16 09/03/24 14:00 Blood Pressure 83/44 L 09/03/24 14:00 Pulse Oximetry 100 09/03/24 14:00 Oxygen Delivery Method Room Air 09/03/24 14:00 Course Orders Ordered: ED Orders 09/03/24 15:34 BMP [Basic Metabolic Panel] Stat MAG [Magnesium] Stat 09/03/24 16:03 EKG-12 Lead Stat Discontinued Medications Potassium Chloride (Potassium Chloride 20 Meq Tab) 40 meq PO NOW ONE Stop: 09/03/24 16:10 Last Admin: 09/03/24 16:23 Dose: 40 meq Documented By: YENIFER Vital Signs Vital signs: Vital Signs - 8 hr 09/03/24 14:00 09/03/24 15:22 09/03/24 15:30 Temperature 97.6 F Pulse Rate 58 L 54 L 55 L Respiratory Rate 16 Blood Pressure 83/44 L Pulse Oximetry 100 100 100 Oxygen Delivery Method Room Air 09/03/24 15:30 09/03/24 16:16 09/03/24 16:17 Temperature Pulse Rate 58 L 58 L Respiratory Rate 22 Blood Pressure 93/60 Pulse Oximetry 95 96 Oxygen Delivery Method 09/03/24 16:17 09/03/24 16:30 09/03/24 16:30 Temperature Pulse Rate 62 Respiratory Rate 14 Blood Pressure 80/50 L 91/53 L Pulse Oximetry 100 Oxygen Delivery Method MDM - Recheck/Abnormal Lab/Rx Lab Data 09/03/24 15:34 Labs: Lab Results 09/03/24 Range/Units 15:34 Sodium 129 L (137-145) mmol/L Potassium 3.0 L (3.4-5.1) mmol/L Chloride 81 L (98-107) mmol/L Carbon Dioxide 39 H (22-32) mmol/L BUN 11 (7-17) mg/dL Creatinine 1.10 H (0.52-1.04) mg/dL Estimated GFR > 60 (>60) mL/min BUN/Creatinine Ratio 10.0 (6-22) Glucose 97 (70-100) mg/dL Calcium 9.9 (8.4-10.2) mg/dL Magnesium 2.3 (1.6-2.3) mg/dL ECG Data Attestation: I personally reviewed and interpreted this ECG as follows: Interpretation: Sinus rhythm rate of 60 [place] 128 QRS is 78 QTC 430, nonspecific change. EKG 2. Sinus bradycardia rate of 58 [place] 128 QRS 80 QTC 431, nonspecific change. No significant ST elevation or depression. [facility] Narrative Medical decision making narrative: Labs show white count 2.1 hemoglobin of 14.6 platelets of 220, predominance of lymphocytes and monocytes. Sodium is 126 potassium 3.1 chloride 79 CO2 is 40 BUN 8 creatinine is 1.18 with a calcium of 10.3 glucose is 97 bilirubin 0.9 with a AST of 47 ALT is 29 alk-phos of 48. Patient has outpatient PTH calcium and intact PTH pending. Patient's labs were repeated, magnesium was added on as well. Patient's sodium on repeat is 129 slightly improved, potassium 3 slightly down from 3.1 chloride 81 with a CO2 of 39 BUN of 11 and a creatinine of 1.0 Mag is 2.3. After discussion patient prefers to return home she has had a sodium is low as 120. With it having a little bit of a trend upwards patient is alert appropriate no neurologic changes. Patient requests discharge home and felt appropriate for discharge home she was currently asymptomatic with sodium trending upwards slightly. We will give a dose of oral potassium here and patient encouraged to take additional 20 mEq with her usual 20mEq x 3 days. Asked that she follow up for repeat labs. She notes she has had a little bit more fluid intake so we will decrease the slightly and encouraged to have more sodium in her diet. Patient notes that she takes 20 mEq of potassium daily asked her to take an extra tablet are 40 mg of the lens potassium daily for the next 3 days and then follow up to have her labs rechecked in the next 2-3 days. Discharge Plan Departure Patient Disposition: Home Clinical Impression: Hyponatremia, Hypokalemia Activity Restrictions/Additional Instructions: Your labs continue to show that your potassium and sodium are low your sodium slightly improved here in the department on rechecked at 129, your potassium is 3. You had some oral potassium replacement here in the department. Please take an additional 20 mEq in addition to your normal for a total of 40 mEq daily x3 days. Follow up with your physician for rechecked to make sure your labs are continuing to improve. Please return for headaches, worsening dizziness, any changes to mentation, new chest pain or shortness of breath, vomiting, new numbness tingling or weakness difficulty with movement or speech or other new or concerning changes. Prescriptions: No Action trazodone 50 mg tablet 50 mg PO BEDTIME estradiol 0.25 mg/0.25 gram (0.1 %) gel in packet 1 packet transdermal DAILY buspirone 5 mg tablet 5 mg PO BID Qty: 60 2RF spironolactone 50 mg tablet 150 mg PO QAM Qty: 90 3RF ondansetron 4 mg tablet,disintegrating 4 mg PO PRN PRN (Reason: Nausea And Vomiting) Qty: 30 4RF pantoprazole 40 mg tablet,delayed release (DR/EC) 40 mg PO BID Qty: 60 1RF thiamine HCl (vitamin B1) 100 mg tablet 100 mg PO DAILY Qty: 90 0RF olanzapine 7.5 mg tablet 7.5 mg PO QPM Qty: 90 1RF alendronate 70 mg tablet See Rx Instructions .ROUTE .COMPLEX Qty: 12 0RF Dose Instruction: TAKE 1 TABLET BY MOUTH ON FRIDAY EVERY WEEK Rx Instructions: TAKE 1 TABLET BY MOUTH ON FRIDAY EVERY WEEK mecobalamin (vitamin B12) 500 mcg tablet,chewable 500 mcg PO DAILY Entresto 24-26 mg tablet 0.5 tab PO BID duloxetine 60 mg capsule, delayed rel sprinkle 120 mg PO DAILY Qty: 180 2RF baclofen 10 mg tablet 10 mg PO Q8H Qty: 180 3RF olanzapine 2.5 mg tablet 5 mg PO QAM Qty: 180 0RF rosuvastatin 5 mg tablet 5 mg PO DAILY Jardiance 10 mg Tablet 10 mg PO DAILY metoprolol succinate 25 mg tablet extended release 24 hr 25 mg PO BID potassium chloride 20 mEq tablet,ER particles/crystals 20 meq PO DAILY furosemide 40 mg tablet 20 mg PO BID Referrals: Andrew Herrera MD [Primary Care Provider] - Stand Alone Forms: Patient Portal/API/Survey
[2024-09-03 16:00] LABS: Blood Urea Nitrogen 11 mg/dL (7-17); Calcium 9.9 mg/dL (8.4-10.2); Carbon Dioxide 39 mmol/L (22-32); Chloride 81 mmol/L (98-107); Estimated Glomerular Filt Rate > 60 mL/min (>60); Glucose 97 mg/dL (70-100); HEMOLYSIS 32 (0-50); Sodium 129 mmol/L (137-145)
[2024-09-03 16:01] LABS: Magnesium 2.3 mg/dL (1.6-2.3)
--- NOTE | 2024-09-03 16:12 | EKG_ITS ---
[facility] [address] [address] Test Date: 2024-09-03 Pat Name: Naina Wing Department: [facility] Room: Gender: Female Tax Evaluator: YENIFER : 1985 Requested By: Order Number: [id number] Reading MD: Kirill Manning MD Measurements Intervals [place] Rate: 60 P: 74 MD: 128 QRS: 72 QRSD: 78 T: 80 QT: 430 QTc: 430 Interpretive Statements Normal sinus rhythm Nonspecific ST abnormality Electronically Signed On 09-04-2024 16:16:58 PST by Kirill Manning MD
--- NOTE | 2024-09-03 16:13 | EKG_ITS ---
[facility] [address], [place] [address] Test Date: 2024-09-03 Pat Name: Naina Wing Department: [facility] Room: Gender: Female Field Return Repairer: YENIFER : 1985 Requested By: Order Number: [id number] Reading MD: Kirill Manning MD Measurements Intervals [place] Rate: 58 P: 66 MD: 128 QRS: 71 QRSD: 80 T: 69 QT: 440 QTc: 431 Interpretive Statements Sinus bradycardia Electronically Signed On 09-04-2024 16:16:59 PST by Kirill Manning MD
[2024-09-03 16:16] VITALS: PULSE 58; RESP 22; O2SAT 95
[2024-09-03 16:17] VITALS: BP 80/50; PULSE 58; O2SAT 96
[2024-09-03] MEDS: POTASSIUM CHLORIDE 20 MEQ TAB 40 MEQ PO (16:23)
[2024-09-03 16:30] VITALS: BP 91/53; PULSE 62; RESP 14; O2SAT 100
== END 2024-09-03 16:42 | disposition home or self-care (01) ==
PROVIDERS: Emergency Provider Emergency Medicine; Family Provider Family Medicine; PCP Family Medicine
DX: E87.1 Hypo-osmolality and hyponatremia (principal); E87.6 Hypokalemia
CPT/HCPCS: 80048; 83735; 93005; 99283; 99284

== ENCOUNTER → 2024-10-01 11:05 | Outpatient (CLI) | payer OTHER, SELFPAY ==
[2023-12-14 08:10] VITALS: BMI 23.0
[2024-10-01 12:53] LABS: BUN Creatinine Ratio 15.6 (6-22); Blood Urea Nitrogen 12 mg/dL (7-17); Calcium 9.6 mg/dL (8.4-10.2); Carbon Dioxide 37 mmol/L (22-32); Chloride 88 mmol/L (98-107); Estimated Glomerular Filt Rate > 60 mL/min (>60); Glucose 98 mg/dL (70-100); HEMOLYSIS 48 (0-50); Phosphorous 2.8 mg/dL (2.5-4.5); Potassium 3.5 mmol/L (3.4-5.1); Sodium 132 mmol/L (137-145)
== END ==
PROVIDERS: Family Provider Family Medicine; PCP Family Medicine; Referring Provider Student in an Organized Health Care Education/Training Program; Visit Provider Student in an Organized Health Care Education/Training Program
DX: F50.029 Anorexia nervosa, binge eating/purging type, unspecified (principal)
CPT/HCPCS: 36415; 80048; 83735; 84100

== ENCOUNTER → 2024-10-23 10:57 | Outpatient (CLI) | payer OTHER, SELFPAY ==
[2023-12-14 08:10] VITALS: BMI 23.0
[2024-10-23 13:33] LABS: Alanine Aminotransferase 37 IU/L (<35); Albumin 4.9 g/dL (3.5-5.0); Alkaline Phosphatase 44 U/L (38-126); Aspartate Aminotransferase 49 IU/L (14-36); BUN Creatinine Ratio 26.8 (6-22); Bilirubin Total 0.7 mg/dL (0.2-1.3); Blood Urea Nitrogen 22 mg/dL (7-17); Calcium 10.1 mg/dL (8.4-10.2); Carbon Dioxide 28 mmol/L (22-32); Chloride 102 mmol/L (98-107); Cholesterol 218 mg/dL (140-199); Estimated Glomerular Filt Rate > 60 mL/min (>60); Globulin 2.5 g/dL (1.7-4.1); Glucose 94 mg/dL (70-100); HEMOLYSIS 29 (0-50); Potassium 4.8 mmol/L (3.4-5.1); Sodium 138 mmol/L (137-145); Total Protein 7.4 g/dL (6.3-8.2); Triglycerides 73 mg/dL (35-150)
[2024-10-23 13:48] LABS: HDL Cholesterol 144 mg/dL (40-60); LDL Cholesterol Calculated 59 mg/dL (<100)
== END ==
PROVIDERS: Family Provider Family Medicine; PCP Family Medicine; Referring Provider Internal Medicine Cardiovascular Disease; Visit Provider Internal Medicine Cardiovascular Disease
DX: I50.20 Unspecified systolic (congestive) heart failure (principal); E78.5 Hyperlipidemia, unspecified
CPT/HCPCS: 36415; 80053; 80061

== ENCOUNTER 2024-11-07 14:50 | Emergency (ER) | payer OTHER, SELFPAY ==
[2023-12-14 08:10] VITALS: BMI 23.0
[2024-11-07 14:51] VITALS: BP 83/65; PULSE 85; RESP 16; TEMP 36.1; O2SAT 100; BMI 15.2
--- NOTE | 2024-11-07 15:19 | EKG_ITS ---
[facility] [address], [place] [address] Test Date: 2024-11-07 Pat Name: Naina Wing Department: [facility] Room: Gender: Female Splunk Developer: JORGE LUIS : 1985 Requested By: Order Number: [id number] Reading MD: Vishnu Frias Measurements Intervals [place] Rate: 75 P: 78 KS: 160 QRS: 70 QRSD: 74 T: 84 QT: 384 QTc: 428 Interpretive Statements Normal sinus rhythm Electronically Signed On 11-08-2024 8:26:49 PST by Vishnu Frias
[2024-11-07 15:20] LABS: Ur Creatinine Normal (Normal); Ur Specific Gravity Normal (Normal); Urine Amphetamines Negative (Negative); Urine Barbiturates Negative (Negative); Urine Benzodiazepines Negative (Negative); Urine Cocaine Negative (Negative); Urine MDMA Negative (Negative); Urine Methadone Negative (Negative); Urine Methamphetamines Negative (Negative); Urine Opiates Negative (Negative); Urine Oxycodone Negative (Negative); Urine Phencyclidine Negative (Negative); Urine THC Negative (Negative); Urine Tricyclic Antidepressant Negative (Negative); Urine pH Normal (Normal)
[2024-11-07 15:22] VITALS: BP 95/54
[2024-11-07 15:23] LABS: Add Manual Diff / Slide Review NO; Basophils Absolute Auto 0 /uL (0-100); Basophils Percent Auto 0.8 % (0-2); Eosinophils Absolute Auto 0 /uL (0-450); Eosinophils Percent Auto 0.2 % (2-4); Hematocrit 42.9 % (36-46); Hemoglobin 14.5 g/dL (12.0-16.0); Lymphocytes Absolute Auto 1500 /uL (1100-4500); Lymphocytes Percent Auto 40.8 % (25-40); Mean Corpuscular HGB Conc 33.8 % (30-36); Mean Corpuscular Hemoglobin 34.3 PG (26-34); Mean Corpuscular Volume 101.4 fL (80-100); Monocytes Absolute Auto 200 /uL (0-900); Monocytes Percent Auto 5.9 % (3-14); Neutrophils Absolute Auto 2000 /uL (1500-7000); Neutrophils Percent Auto 52.3 % (50-75); Platelet Count 304 X10^3/uL (150-400); Red Blood Cell Count 4.23 X10^6/uL (4.0-5.2); White Blood Cell Count 3.8 X10^3/uL (4.5-11.0)
[2024-11-07 15:34] LABS: Acetaminophen < 10 ug/mL (10-30); Alanine Aminotransferase 62 IU/L (<35); Albumin 5.4 g/dL (3.5-5.0); Albumin Globulin Ratio 1.5 (1.0-2.8); Alkaline Phosphatase 69 U/L (38-126); Aspartate Aminotransferase 88 IU/L (14-36); Bilirubin Total 0.5 mg/dL (0.2-1.3); Blood Urea Nitrogen 15 mg/dL (7-17); Calcium 10.5 mg/dL (8.4-10.2); Carbon Dioxide 27 mmol/L (22-32); Chloride 94 mmol/L (98-107); Estimated Glomerular Filt Rate > 60 mL/min (>60); Ethanol (ETOH) 277 mg/dL; Globulin 3.7 g/dL (1.7-4.1); Glucose 68 mg/dL (70-100); HEMOLYSIS < 15 (0-50); Potassium 4.8 mmol/L (3.4-5.1); Salicylate < 1.0 mg/dL (<20); Sodium 138 mmol/L (137-145); Total Protein 9.1 g/dL (6.3-8.2)
[2024-11-07 15:55] LABS: Free T4, Direct Thyroxine 0.82 ng/dL (0.78-2.19)
[2024-11-07 16:09] LABS: Thyroid Stimulating Hormone 0.355 uIU/mL (0.47-4.68)
--- NOTE | 2024-11-07 16:24 | ED.ALCOHOL ---
HPI - Alcohol General Chief Complaint: Toxicology Problem Stated Complaint: needs lab/ekg for admitting to facility Time Seen by Provider: 11/07/24 16:24 Source: patient and family Mode of arrival: Ambulatory History of Present Illness HPI narrative: Patient is a 31-year-old female history of alcohol use disorder anorexia liver failure ascites iron-deficiency anemia chronic pain anxiety presenting to day with need for medical clearance for alcohol detox. States that she has a bed just needs blood work. Related Data Home Medications Medication Instructions Recorded Confirmed mecobalamin (vitamin B12) 500 mcg 500 mcg PO DAILY 02/07/23 10/25/24 chewable tablet empagliflozin 10 mg tablet 10 mg PO DAILY 09/23/23 10/25/24 (Jardiance) metoprolol succinate 25 mg 25 mg PO BID 01/02/24 10/25/24 tablet,extended release 24 hr potassium chloride 20 mEq 20 meq PO DAILY 01/02/24 10/25/24 tablet,extended release(part/cryst) sacubitril 24 mg-valsartan 26 mg 0.5 tab PO BID 02/10/24 10/25/24 tablet (Entresto) furosemide 40 mg tablet 20 mg PO BID 05/11/24 10/25/24 rosuvastatin 5 mg tablet 5 mg PO DAILY 08/17/24 10/25/24 estradiol 0.25 mg/0.25 gram (0.1 1 packet transdermal DAILY 08/30/24 10/25/24 %) transdermal gel packet trazodone 50 mg tablet 50 mg PO BEDTIME 08/30/24 10/26/24 Previous Rx's Medication Instructions Recorded duloxetine 60 mg capsule,delayed 120 mg (2 x 60 mg) PO DAILY #180 02/10/24 release sprinkle caps baclofen 10 mg tablet 10 mg PO Q8H #180 tabs 05/11/24 olanzapine 7.5 mg tablet 7.5 mg PO QPM #90 tabs 07/28/24 alendronate 70 mg tablet See Rx Instructions .Route 08/23/24 .COMPLEX #12 tabs spironolactone 50 mg tablet 150 mg (3 x 50 mg) PO QAM #90 tabs 09/28/24 pantoprazole 40 mg tablet,delayed 40 mg PO BID #60 tabs 10/05/24 release thiamine HCl (vitamin B1) 100 mg 100 mg PO DAILY #90 tabs 10/05/24 tablet ondansetron 4 mg disintegrating 4 mg PO BID PRN Nausea And 10/08/24 tablet Vomiting #30 tabs olanzapine 2.5 mg tablet 5 mg (2 x 2.5 mg) PO QAM #180 tabs 10/25/24 buspirone 5 mg tablet 7.5 mg (1.5 x 5 mg) PO BID #60 tabs 10/26/24 Allergies Allergy/AdvReac Type Severity Reaction Status Date / Time gabapentin AdvReac Intermediate Mental Verified 10/25/24 10:56 status changes Patient History Medical History Anorexia nervosa, binge eating/purging type Alcohol use disorder, severe, in early remission Generalized anxiety disorder Hypercalcemia Alcohol use disorder Pancytopenia Tricuspid regurgitation Mitral regurgitation HFrEF (heart failure with reduced ejection fraction) Left ventricular hypokinesis Hip pain, bilateral 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 Leukocytopenia GERD (gastroesophageal reflux disease) Caloric malnutrition Anorexia nervosa Neuropathy Depression Anxiety Alcoholism in remission Ankle pain, right Alcoholism Anorexia Surgical History History of total hip arthroplasty Social History household members: none Smoking Status: Current every day smoker Smoking Status: Current every day smoker tobacco type: vaping alcohol intake frequency: 3 or more drinks per day Alcohol type: hard liquor Exam Initial Vital Signs Initial Vital Signs: Vital Signs Temperature 97.0 F L 11/07/24 14:51 Pulse Rate 85 11/07/24 14:51 Respiratory Rate 16 11/07/24 14:51 Blood Pressure 83/65 L 11/07/24 14:51 Pulse Oximetry 100 11/07/24 14:51 Oxygen Delivery Method Room Air 11/07/24 14:51 Course Orders Ordered: ED Orders 11/07/24 14:58 EKG-12 Lead Stat 11/07/24 15:05 Urine Drug Screen, Rapid Stat 11/07/24 15:14 Acetaminophen Stat Complete Blood Count AUTO DIFF Stat Comprehensive Metabolic Panel Stat Ethanol (ETOH) Stat Free T4, Direct Thyroxine Stat Salicylate Stat Thyroid Stimulating Hormone Stat 11/07/24 18:15 Ethanol (ETOH) Stat Vital Signs Vital signs: Vital Signs - 8 hr 11/07/24 14:51 11/07/24 15:22 11/07/24 18:05 Temperature 97.0 F L Pulse Rate 85 64 Respiratory Rate 16 18 Blood Pressure 83/65 L 95/54 L 97/62 Pulse Oximetry 100 99 Oxygen Delivery Method Room Air Room Air MDM - Alcohol Lab Data 11/07/24 15:14 11/07/24 15:14 Labs: Lab Results 11/07/24 11/07/24 11/07/24 Range/Units 15:05 15:14 18:15 WBC 3.8 L (4.5-11.0) X10^3/uL RBC 4.23 (4.0-5.2) X10^6/uL Hgb 14.5 (12.0-16.0) g/dL Hct 42.9 (36-46) % MCV 101.4 H (80-100) fL MCH 34.3 H (26-34) PG MCHC 33.8 (30-36) % RDW 15.0 H (11.6-14.8) % Plt Count 304 (150-400) X10^3/uL Neut % (Auto) 52.3 (50-75) % Lymph % (Auto) 40.8 H (25-40) % Sullivan % (Auto) 5.9 (3-14) % Eos % (Auto) 0.2 L (2-4) % Baso % (Auto) 0.8 (0-2) % Neut # (Auto) 2000 (7977-4869) /uL Lymph # (Auto) 1500 (4987-5625) /uL Sullivan # (Auto) 200 (0-900) /uL Eos # (Auto) 0 (0-450) /uL Baso # (Auto) 0 (0-100) /uL Sodium 138 (137-145) mmol/L Potassium 4.8 (3.4-5.1) mmol/L Chloride 94 L (98-107) mmol/L Carbon Dioxide 27 (22-32) mmol/L BUN 15 (7-17) mg/dL Creatinine 0.88 (0.52-1.04) mg/dL Estimated GFR > 60 (>60) mL/min BUN/Creatinine Ratio 17.0 (6-22) Glucose 68 L (70-100) mg/dL Calcium 10.5 H (8.4-10.2) mg/dL Total Bilirubin 0.5 (0.2-1.3) mg/dL AST 88 H (14-36) IU/L ALT 62 H (<35) IU/L Alkaline Phosphatase 69 (38-126) U/L Total Protein 9.1 H (6.3-8.2) g/dL Albumin 5.4 H (3.5-5.0) g/dL Globulin 3.7 (1.7-4.1) g/dL Albumin/Globulin Ratio 1.5 (1.0-2.8) TSH 0.355 L (0.47-4.68) uIU/mL Free T4 0.82 (0.78-2.19) ng/dL Salicylates < 1.0 (<20) mg/dL U Opiates 300ng/mL cut Negative (Negative) Ur Oxycodone Screen Negative (Negative) Urine Methadone Screen Negative (Negative) Acetaminophen < 10 (10-30) ug/mL Ur Barbiturates Screen Negative (Negative) U Tricyclic Antidepress Negative (Negative) Ur Phencyclidine Scrn Negative (Negative) Ur Amphetamines Screen Negative (Negative) U Methamphetamines Scrn Negative (Negative) Ur MDMA Scrn (Ecstasy) Negative (Negative) U Benzodiazepines Scrn Negative (Negative) Urine Cocaine Screen Negative (Negative) U Marijuana (THC) Screen Negative (Negative) Urine pH Normal (Normal) Urine Specific [place] Normal (Normal) Ethyl Alcohol 277 H 152 H ( - 10) mg/dL Ur Creatinine Normal (Normal) Point of Care Testing Test Results Negative Urine Dip Bedside Urine Glucose 500 mg/dl Bedside Urine Bilirubin - Negative Bedside Urine Ketone - Negative Urine Specific [place] 1.005 Bedside Urine Occult Blood - Negative Bedside Urine pH 7.5 Bedside Urine Protein - Negative Bedside Urine Urobilinogen - Negative Bedside Urine Nitrite - Negative Bedside Urine Leukocytes - Negative Esterase MDM Narrative Medical decision making narrative: Patient 31-year-old female history of alcohol use disorder anorexia presenting today for medical clearance for detox. Blood work has been reviewed WBC 3.8 it was previously 2.1 she has no anemia MCV is 101 Electrolytes normal limits sodium 138 potassium 4.8 chloride 94 carbon dioxide 27 BUN 15 creatinine 0.8 Glucose 68 Bilirubin 0.5 AST 88 ALT 62 alk-phos 69 TSH 0.355 Negative toxicology screen, positive for alcohol level 277 Patient was medically cleared Will go home and wait for a bed Discharge Plan Departure Patient Disposition: Home Clinical Impression: Alcohol intoxication Activity Restrictions/Additional Instructions: Go to detox You are medically cleared Await further call Return to ED as needed Prescriptions: No Action buspirone 5 mg tablet 7.5 mg PO BID Qty: 60 2RF Hold Instructions: dizziness trazodone 50 mg tablet 50 mg PO BEDTIME estradiol 0.25 mg/0.25 gram (0.1 %) gel in packet 1 packet transdermal DAILY olanzapine 7.5 mg tablet 7.5 mg PO QPM Qty: 90 1RF alendronate 70 mg tablet See Rx Instructions .ROUTE .COMPLEX Qty: 12 0RF Dose Instruction: TAKE 1 TABLET BY MOUTH ON FRIDAY EVERY WEEK Rx Instructions: TAKE 1 TABLET BY MOUTH ON FRIDAY EVERY WEEK spironolactone 50 mg tablet 150 mg PO QAM Qty: 90 0RF ondansetron 4 mg tablet,disintegrating 4 mg PO BID PRN (Reason: Nausea And Vomiting) Qty: 30 4RF olanzapine 2.5 mg tablet 5 mg PO QAM Qty: 180 0RF mecobalamin (vitamin B12) 500 mcg tablet,chewable 500 mcg PO DAILY Entresto 24-26 mg tablet 0.5 tab PO BID duloxetine 60 mg capsule, delayed rel sprinkle 120 mg PO DAILY Qty: 180 2RF baclofen 10 mg tablet 10 mg PO Q8H Qty: 180 3RF rosuvastatin 5 mg tablet 5 mg PO DAILY pantoprazole 40 mg tablet,delayed release (DR/EC) 40 mg PO BID Qty: 60 1RF thiamine HCl (vitamin B1) 100 mg tablet 100 mg PO DAILY Qty: 90 3RF Jardiance 10 mg Tablet 10 mg PO DAILY metoprolol succinate 25 mg tablet extended release 24 hr 25 mg PO BID potassium chloride 20 mEq tablet,ER particles/crystals 20 meq PO DAILY furosemide 40 mg tablet 20 mg PO BID Referrals: Andrew Herrera MD [Primary Care Provider] - Stand Alone Forms: Patient Portal/API/Survey
--- NOTE | 2024-11-07 17:05 | PC.NURSE ---
This RN called [facility] and got information that was needed for patient self referral. Provider medically cleared the patient. Provider gave authorization to send their note. Provider printed note. FACTORY MACHINE COMPUTER OPERATOR sent provider note and EKG to [facility] facility.
[2024-11-07 18:05] VITALS: BP 97/62; PULSE 64; RESP 18; O2SAT 99
[2024-11-07 18:31] LABS: Ethanol (ETOH) 152 mg/dL
[2024-11-07 19:23] VITALS: BP 91/56; PULSE 86; RESP 15; O2SAT 97
== END 2024-11-07 19:23 | disposition home or self-care (01) ==
PROVIDERS: Emergency Medicine; Emergency Provider Emergency Medicine; Family Provider Family Medicine; PCP Family Medicine
DX: F10.129 Alcohol abuse with intoxication, unspecified (principal); R07.9 Chest pain, unspecified; Y90.8 Blood alcohol level of 240 mg/100 ml or more; Z86.59 Personal history of other mental and behavioral disorders; Z86.2 Personal history of diseases of the blood and blood-forming organs and certain disorders involving the immune mechanism; Z87.19 Personal history of other diseases of the digestive system
CPT/HCPCS: 36415; 80053; 80305; 80320; 80329; 81003; 81025; 84439; 84443; 85025; 93005; 99283; 99284; G0480

== ENCOUNTER 2024-12-08 20:09 | Emergency (ER) | payer OTHER, SELFPAY ==
[2023-12-14 08:10] VITALS: BMI 23.0
[2024-12-08 20:11] VITALS: BP 107/83; PULSE 88; RESP 18; TEMP 36.1; O2SAT 100; BMI 15.2
[2024-12-08 20:55] LABS: Add Manual Diff / Slide Review NO; Basophils Absolute Auto 0 /uL (0-100); Basophils Percent Auto 0.7 % (0-2); Eosinophils Absolute Auto 0 /uL (0-450); Eosinophils Percent Auto 0.1 % (2-4); Hemoglobin 14.8 g/dL (12.0-16.0); Lymphocytes Absolute Auto 2000 /uL (1100-4500); Lymphocytes Percent Auto 52.2 % (25-40); Mean Corpuscular HGB Conc 34.5 % (30-36); Mean Corpuscular Hemoglobin 34.4 PG (26-34); Mean Corpuscular Volume 99.6 fL (80-100); Monocytes Absolute Auto 200 /uL (0-900); Monocytes Percent Auto 5.1 % (3-14); Neutrophils Absolute Auto 1600 /uL (1500-7000); Neutrophils Percent Auto 41.9 % (50-75); Platelet Count 227 X10^3/uL (150-400); Red Blood Cell Count 4.31 X10^6/uL (4.0-5.2); Red Cell Distribution Width 14.4 % (11.6-14.8); White Blood Cell Count 3.8 X10^3/uL (4.5-11.0)
[2024-12-08 21:04] LABS: Acetaminophen < 10 ug/mL (10-30); Alanine Aminotransferase 85 IU/L (<35); Albumin 5.3 g/dL (3.5-5.0); Albumin Globulin Ratio 1.6 (1.0-2.8); Alkaline Phosphatase 74 U/L (38-126); Aspartate Aminotransferase 161 IU/L (14-36); BUN Creatinine Ratio 24.3 (6-22); Bilirubin Total 0.4 mg/dL (0.2-1.3); Blood Urea Nitrogen 17 mg/dL (7-17); Calcium 10.1 mg/dL (8.4-10.2); Carbon Dioxide 22 mmol/L (22-32); Chloride 104 mmol/L (98-107); Estimated Glomerular Filt Rate > 60 mL/min (>60); Globulin 3.4 g/dL (1.7-4.1); Glucose 86 mg/dL (70-100); HEMOLYSIS < 15 (0-50); Salicylate < 1.0 mg/dL (<20); Sodium 145 mmol/L (137-145); Total Protein 8.7 g/dL (6.3-8.2)
[2024-12-08 21:18] LABS: Ethanol (ETOH) 422 mg/dL
[2024-12-08 21:21] LABS: Free T4, Direct Thyroxine 0.77 ng/dL (0.78-2.19)
[2024-12-08 21:35] LABS: Thyroid Stimulating Hormone 1.22 uIU/mL (0.47-4.68)
[2024-12-08 22:40] LABS: UR Morphine/Opiate cutoff 300 Negative (Negative); Ur Creatinine Normal (Normal); Ur Specific Gravity Normal (Normal); Urine Amphetamines Negative (Negative); Urine Barbiturates Negative (Negative); Urine Benzodiazepines Negative (Negative); Urine Cocaine Negative (Negative); Urine MDMA Negative (Negative); Urine Methadone Negative (Negative); Urine Methamphetamines Negative (Negative); Urine Phencyclidine Negative (Negative); Urine Tetrahydrocannabinol Negative (Negative); Urine pH Normal (Normal)
[2024-12-08 22:41] LABS: Urine Oxycodone Negative (Negative); Urine Tricyclic Antidepressant Negative (Negative)
--- NOTE | 2024-12-08 22:57 | ED.ALCOHOL ---
HPI - Alcohol <Darrell Quiñonezsilvia, DO - Last Filed: 12/09/24 06:32> General Chief Complaint: Toxicology Problem Stated Complaint: etoh, hx of heart condition Time Seen by Provider: 12/08/24 22:57 Source: patient Mode of arrival: Ambulatory History of Present Illness HPI narrative: Patient is a 31-year-old female with a past medical history of alcohol abuse, hyper lipidemia, hypertension, heart failure, comes into the ED from home for evaluation of alcohol intoxication. Patient presents with the mother states that she has been on a ?Warren over the past few days. Patient states that she has been clean/sober for the past 6 months, has been in inpatient detox in the past. At time of evaluation patient is speaking full sentences, she has not complaining of any symptoms, she does state that she drank yesterday. She states that she has not really sure if she wants to go into detox/rehab but mother brought her in because she wanted her to be evaluated beforehand. Related Data Home Medications Medication Instructions Recorded Confirmed mecobalamin (vitamin B12) 500 mcg 500 mcg PO DAILY 02/07/23 10/25/24 chewable tablet empagliflozin 10 mg tablet 10 mg PO DAILY 09/23/23 10/25/24 (Jardiance) metoprolol succinate 25 mg 25 mg PO BID 01/02/24 10/25/24 tablet,extended release 24 hr potassium chloride 20 mEq 20 meq PO DAILY 01/02/24 10/25/24 tablet,extended release(part/cryst) sacubitril 24 mg-valsartan 26 mg 0.5 tab PO BID 02/10/24 10/25/24 tablet (Entresto) furosemide 40 mg tablet 20 mg PO BID 05/11/24 10/25/24 rosuvastatin 5 mg tablet 5 mg PO DAILY 08/17/24 10/25/24 estradiol 0.25 mg/0.25 gram (0.1 1 packet transdermal DAILY 08/30/24 10/25/24 %) transdermal gel packet trazodone 50 mg tablet 50 mg PO BEDTIME 08/30/24 12/03/24 Previous Rx's Medication Instructions Recorded baclofen 10 mg tablet 10 mg PO Q8H #180 tabs 05/11/24 olanzapine 7.5 mg tablet 7.5 mg PO QPM #90 tabs 07/28/24 thiamine HCl (vitamin B1) 100 mg 100 mg PO DAILY #90 tabs 10/05/24 tablet ondansetron 4 mg disintegrating 4 mg PO BID PRN Nausea And 10/08/24 tablet Vomiting #30 tabs olanzapine 2.5 mg tablet 5 mg (2 x 2.5 mg) PO QAM #180 tabs 10/25/24 alendronate 70 mg tablet See Rx Instructions .Route 11/11/24 .COMPLEX #12 tabs spironolactone 50 mg tablet 150 mg (3 x 50 mg) PO QAM #90 tabs 11/11/24 buspirone 5 mg tablet 7.5 mg (1.5 x 5 mg) PO BID #60 tabs 11/17/24 acamprosate 333 mg tablet,delayed 333 mg PO TID #90 tabs 12/03/24 release pantoprazole 40 mg tablet,delayed 40 mg PO BID #60 tabs 12/06/24 release Allergies Allergy/AdvReac Type Severity Reaction Status Date / Time gabapentin AdvReac Intermediate Mental Verified 10/25/24 10:56 status changes Review of Systems <Darrell Modi DO - Last Filed: 12/09/24 06:32> Review of Systems Narrative: General: Positive alcohol ingestion Denies fever, chills, weight loss HEENT: Denies headache, eye drainage, eye irritation, head trauma, sore throat, voice change Cardiovascular: Denies any chest pain, palpitations, tachycardia Respiratory: Denies any shortness of breath, cough, wheeze, stridor GI/: Denies any abdominal pain, nausea, vomiting, diarrhea, bright red blood per rectum, melanotic stools, urinary frequency, urinary retention, dysuria, hematuria MSK: Denies any joint pain, muscle pains, swelling Skin: Denies any rashes, lesions, discoloration Neuro: Denies any headache, lightheadedness, dizziness, fainting, weakness Psych: Denies SI/HI Patient History <Darrell Modi DO - Last Filed: 12/09/24 06:32> Medical History Anorexia nervosa, binge eating/purging type Alcohol use disorder, severe, in early remission Generalized anxiety disorder Hypercalcemia Alcohol use disorder Pancytopenia Tricuspid regurgitation Mitral regurgitation HFrEF (heart failure with reduced ejection fraction) Left ventricular hypokinesis Hip pain, bilateral 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 Leukocytopenia GERD (gastroesophageal reflux disease) Caloric malnutrition Anorexia nervosa Neuropathy Depression Anxiety Alcoholism in remission Ankle pain, right Alcoholism Anorexia Surgical History History of total hip arthroplasty Social History household members: none Smoking Status: Current every day smoker Smoking Status: Current every day smoker tobacco type: vaping alcohol intake frequency: 3 or more drinks per day Alcohol type: wine and hard liquor Exam <Darrell Modi DO - Last Filed: 12/09/24 06:32> Narrative Exam Narrative: General: Patient obviously intoxicated, however Cooperative, comfortable, well-developed, not in acute distress HEENT: Normocephalic, atraumatic, PERRLA, normal sclera, eyelids normal, Neck: Active full range of motion, atraumatic Chest: Normal to inspection, negative crepitus, no overlying erythema ecchymosis Respiratory: Normal respiratory effort, not in acute respiratory distress, clear to auscultation bilaterally negative cough, wheeze, tachypnea, rhonchi, rales Cardiology: Regular rate rhythm negative gallop, murmur, rubs GI/: Normal to inspection, soft, nonrigid, no tenderness to palpation, exam deferred MSK: Full range of active range of motion of all 4 extremities, atraumatic Skin: No rashes lesions noted Neuro: Alert awake oriented x3, moves all 4 extremities spontaneously, cranial nerves intact, able to answer all questions appropriately follows commands appropriately Psych: Cooperative, negative suicidal or homicidal ideations Initial Vital Signs Initial Vital Signs: Vital Signs Temperature 96.9 F L 12/08/24 20:11 Pulse Rate 88 12/08/24 20:11 Respiratory Rate 18 12/08/24 20:11 Blood Pressure 107/83 12/08/24 20:11 Pulse Oximetry 100 12/08/24 20:11 Oxygen Delivery Method Room Air 12/08/24 20:11 <Joe Brewer MD - Last Filed: 12/09/24 15:04> Initial Vital Signs Initial Vital Signs: Vital Signs Temperature 96.9 F L 12/08/24 20:11 Pulse Rate 88 03/19/25 20:11 Respiratory Rate 18 12/08/24 20:11 Blood Pressure 107/83 12/08/24 20:11 Pulse Oximetry 100 12/08/24 20:11 Oxygen Delivery Method Room Air 12/08/24 20:11 Course <Darrell Modi DO - Last Filed: 12/09/24 06:32> Orders Ordered: ED Orders 12/09/24 06:44 Consult to [facility] [place] - [employer] Stat Discontinued Medications Folic Acid (Folic Acid 1 Mg Tablet) 1 mg PO NOW ONE Stop: 12/08/24 22:59 Last Admin: 12/08/24 23:28 Dose: 1 mg Documented By: ANTHONY Sodium Chloride (Normal Saline 0.9%) 1,000 mls @ 1,000 mls/hr IV BOLUS ONE Stop: 12/08/24 23:57 Last Infusion: 12/09/24 01:00 Dose: Infused Documented By: Admin: 12/08/24 23:32 Dose: 1,000 mls/hr Documented By: ANTHONY Magnesium Sulfate (Magnesium Sulfate) 2 gm in 50 mls @ 150 mls/hr IV NOW ONE Stop: 12/08/24 23:17 Last Infusion: 12/09/24 00:05 Dose: Infused Documented By: ANTHONY Co-signed By: Admin: 12/08/24 23:29 Dose: 150 mls/hr Documented By: ANTHONY Co-signed By: HIPOLITO Thiamine HCl 100 mg/ Sodium (Chloride) 101 mls @ 404 mls/hr IV NOW ONE Stop: 12/08/24 22:59 Last Infusion: 12/09/24 00:03 Dose: Infused Documented By: Admin: 12/08/24 23:30 Dose: 404 mls/hr Documented By: ANTHONY Vital Signs Vital signs: Vital Signs - 8 hr 12/09/24 09:19 12/09/24 09:19 12/09/24 09:19 Pulse Rate 86 Blood Pressure 128/68 128/68 Pulse Oximetry 97 12/09/24 09:19 Pulse Rate 86 Blood Pressure Pulse Oximetry 97 <Joe Brewer MD - Last Filed: 12/09/24 15:04> Orders Ordered: ED Orders 12/09/24 06:44 Consult to [facility] [place] - [employer]her Stat Discontinued Medications Folic Acid (Folic Acid 1 Mg Tablet) 1 mg PO NOW ONE Stop: 12/08/24 22:59 Last Admin: 12/08/24 23:28 Dose: 1 mg Documented By: ANTHONY Sodium Chloride (Normal Saline 0.9%) 1,000 mls @ 1,000 mls/hr IV BOLUS ONE Stop: 12/08/24 23:57 Last Infusion: 12/09/24 01:00 Dose: Infused Documented By: Admin: 12/08/24 23:32 Dose: 1,000 mls/hr Documented By: ANTHONY Magnesium Sulfate (Magnesium Sulfate) 2 gm in 50 mls @ 150 mls/hr IV NOW ONE Stop: 12/08/24 23:17 Last Infusion: 12/09/24 00:05 Dose: Infused Documented By: ANTHONY Co-signed By: Admin: 12/08/24 23:29 Dose: 150 mls/hr Documented By: ANTHONY Co-signed By: HIPOLITO Thiamine HCl 100 mg/ Sodium (Chloride) 101 mls @ 404 mls/hr IV NOW ONE Stop: 12/08/24 22:59 Last Infusion: 12/09/24 00:03 Dose: Infused Documented By: Admin: 12/08/24 23:30 Dose: 404 mls/hr Documented By: ANTHONY Vital Signs Vital signs: Vital Signs - 8 hr 12/09/24 09:19 12/09/24 09:19 12/09/24 09:19 Pulse Rate 86 Blood Pressure 128/68 128/68 Pulse Oximetry 97 12/09/24 09:19 Pulse Rate 86 Blood Pressure Pulse Oximetry 97 MDM - Alcohol <Darrell Modi DO - Last Filed: 12/09/24 06:32> Differential Diagnosis Differential diagnosis: Likely alcohol withdrawal delirium, hypomagnesemia, alcohol intoxication, other (Electrolyte abnormality), alcohol withdrawal syndrome and alcohol withdrawal seizure Lab Data 12/08/24 20:45 12/08/24 20:45 Labs: Lab Results 12/08/24 12/08/24 12/09/24 Range/Units 20:45 22:25 01:20 WBC 3.8 L (4.5-11.0) X10^3/uL RBC 4.31 (4.0-5.2) X10^6/uL Hgb 14.8 (12.0-16.0) g/dL Hct 43.0 (36-46) % MCV 99.6 (80-100) fL MCH 34.4 H (26-34) PG MCHC 34.5 (30-36) % RDW 14.4 (11.6-14.8) % Plt Count 227 (150-400) X10^3/uL Neut % (Auto) 41.9 L (50-75) % Lymph % (Auto) 52.2 H (25-40) % [place] % (Auto) 5.1 (3-14) % Eos % (Auto) 0.1 L (2-4) % Baso % (Auto) 0.7 (0-2) % Neut # (Auto) 1600 (8877-1412) /uL Lymph # (Auto) 2000 (1144-7946) /uL [place] # (Auto) 200 (0-900) /uL Eos # (Auto) 0 (0-450) /uL Baso # (Auto) 0 (0-100) /uL Sodium 145 (137-145) mmol/L Potassium 5.0 (3.4-5.1) mmol/L Chloride 104 (98-107) mmol/L Carbon Dioxide 22 (22-32) mmol/L BUN 17 (7-17) mg/dL Creatinine 0.70 (0.52-1.04) mg/dL Estimated GFR > 60 (>60) mL/min BUN/Creatinine Ratio 24.3 H (6-22) Glucose 86 (70-100) mg/dL Calcium 10.1 (8.4-10.2) mg/dL Total Bilirubin 0.4 (0.2-1.3) mg/dL AST 161 H (14-36) IU/L ALT 85 H (<35) IU/L Alkaline Phosphatase 74 (38-126) U/L Total Protein 8.7 H (6.3-8.2) g/dL Albumin 5.3 H (3.5-5.0) g/dL Globulin 3.4 (1.7-4.1) g/dL Albumin/Globulin Ratio 1.6 (1.0-2.8) TSH 1.22 (0.47-4.68) uIU/mL Free T4 0.77 L (0.78-2.19) ng/dL Salicylates < 1.0 (<20) mg/dL U Opiates 300ng/mL cut Negative (Negative) Ur Oxycodone Screen Negative (Negative) Urine Methadone Screen Negative (Negative) Acetaminophen < 10 (10-30) ug/mL Ur Barbiturates Screen Negative (Negative) U Tricyclic Antidepress Negative (Negative) Ur Phencyclidine Scrn Negative (Negative) Ur Amphetamines Screen Negative (Negative) U Methamphetamines Scrn Negative (Negative) Ur MDMA Scrn (Ecstasy) Negative (Negative) U Benzodiazepines Scrn Negative (Negative) Urine Cocaine Screen Negative (Negative) U Marijuana (THC) Screen Negative (Negative) Urine pH Normal (Normal) Urine Specific [place] Normal (Normal) Ethyl Alcohol 422 H* 284 H ( - 10) mg/dL Ur Creatinine Normal (Normal) Point of Care Testing Test Results Negative Urine Dip Bedside Urine Glucose 500 mg/dl Bedside Urine Bilirubin - Negative Bedside Urine Ketone - Negative Urine Specific [place] 1.01 Bedside Urine Occult Blood - Negative Bedside Urine pH 7 Bedside Urine Protein - Negative Bedside Urine Urobilinogen - Negative Bedside Urine Nitrite - Negative Bedside Urine Leukocytes - Negative Esterase MDM Narrative Medical decision making narrative: 39-year-old female with past medical history of alcohol abuse, CHF, comes into the ED with mother for evaluation of alcohol intoxication, according to the mother she has been on a Warren she was previously six-month sober but has been drinking for the past few days and at time of evaluation patient is intoxicated however she is stating that she wants to go home but is willing/open to rehab. She denies any symptoms such as headache visual disturbances chest pain shortness breath fever chills nausea vomiting abdominal pain or any other GI/ symptoms. She does admit to drinking alcohol yesterday. States that she has been having to deal with some issues and this is what caused her to relapse. 1113: Patient re-evaluated sitting in bed no new complaints at this time, I offered the patient and the mother at bedside resources informed them that in order to obtain this in regards to inpatient she would need to stay overnight and see social work in the morning, they state that they would like the fluids and electrolytes and to be re-evaluated after that. 0108: Patient was re-evaluated no new at this time, patient mother at bedside state that they do want to attempt inpatient rehab. They are willing to go to any rehab facility, will begin reaching out will order repeat ethanol level. Patient with CIWA still at 0, she is well-appearing nontoxic calm and cooperative at this time 0700: Patient was signed out to Dr. Brewer, patient has been medically cleared is requesting inpatient detox/rehab pending acceptance to multiple facilities. <Joe Brewer MD - Last Filed: 12/09/24 15:04> Lab Data Labs: Lab Results 12/08/24 12/08/24 12/09/24 Range/Units 20:45 22:25 01:20 WBC 3.8 L (4.5-11.0) X10^3/uL RBC 4.31 (4.0-5.2) X10^6/uL Hgb 14.8 (12.0-16.0) g/dL Hct 43.0 (36-46) % MCV 99.6 (80-100) fL MCH 34.4 H (26-34) PG MCHC 34.5 (30-36) % RDW 14.4 (11.6-14.8) % Plt Count 227 (150-400) X10^3/uL Neut % (Auto) 41.9 L (50-75) % Lymph % (Auto) 52.2 H (25-40) % [place] % (Auto) 5.1 (3-14) % Eos % (Auto) 0.1 L (2-4) % Baso % (Auto) 0.7 (0-2) % Neut # (Auto) 1600 (5401-9623) /uL Lymph # (Auto) 2000 (4097-7784) /uL [place] # (Auto) 200 (0-900) /uL Eos # (Auto) 0 (0-450) /uL Baso # (Auto) 0 (0-100) /uL Sodium 145 (137-145) mmol/L Potassium 5.0 (3.4-5.1) mmol/L Chloride 104 (98-107) mmol/L Carbon Dioxide 22 (22-32) mmol/L BUN 17 (7-17) mg/dL Creatinine 0.70 (0.52-1.04) mg/dL Estimated GFR > 60 (>60) mL/min BUN/Creatinine Ratio 24.3 H (6-22) Glucose 86 (70-100) mg/dL Calcium 10.1 (8.4-10.2) mg/dL Total Bilirubin 0.4 (0.2-1.3) mg/dL AST 161 H (14-36) IU/L ALT 85 H (<35) IU/L Alkaline Phosphatase 74 (38-126) U/L Total Protein 8.7 H (6.3-8.2) g/dL Albumin 5.3 H (3.5-5.0) g/dL Globulin 3.4 (1.7-4.1) g/dL Albumin/Globulin Ratio 1.6 (1.0-2.8) TSH 1.22 (0.47-4.68) uIU/mL Free T4 0.77 L (0.78-2.19) ng/dL Salicylates < 1.0 (<20) mg/dL U Opiates 300ng/mL cut Negative (Negative) Ur Oxycodone Screen Negative (Negative) Urine Methadone Screen Negative (Negative) Acetaminophen < 10 (10-30) ug/mL Ur Barbiturates Screen Negative (Negative) U Tricyclic Antidepress Negative (Negative) Ur Phencyclidine Scrn Negative (Negative) Ur Amphetamines Screen Negative (Negative) U Methamphetamines Scrn Negative (Negative) Ur MDMA Scrn (Ecstasy) Negative (Negative) U Benzodiazepines Scrn Negative (Negative) Urine Cocaine Screen Negative (Negative) U Marijuana (THC) Screen Negative (Negative) Urine pH Normal (Normal) Urine Specific [place] Normal (Normal) Ethyl Alcohol 422 H* 284 H ( - 10) mg/dL Ur Creatinine Normal (Normal) Point of Care Testing Test Results Negative Urine Dip Bedside Urine Glucose 500 mg/dl Bedside Urine Bilirubin - Negative Bedside Urine Ketone - Negative Urine Specific [place] 1.01 Bedside Urine Occult Blood - Negative Bedside Urine pH 7 Bedside Urine Protein - Negative Bedside Urine Urobilinogen - Negative Bedside Urine Nitrite - Negative Bedside Urine Leukocytes - Negative Esterase MDM Narrative Medical decision making narrative: 39-year-old female with past medical history of alcohol abuse, CHF, comes into the ED with mother for evaluation of alcohol intoxication, according to the mother she has been on a Warren she was previously six-month sober but has been drinking for the past few days and at time of evaluation patient is intoxicated however she is stating that she wants to go home but is willing/open to rehab. She denies any symptoms such as headache visual disturbances chest pain shortness breath fever chills nausea vomiting abdominal pain or any other GI/ symptoms. She does admit to drinking alcohol yesterday. States that she has been having to deal with some issues and this is what caused her to relapse. 1113: Patient re-evaluated sitting in bed no new complaints at this time, I offered the patient and the mother at bedside resources informed them that in order to obtain this in regards to inpatient she would need to stay overnight and see social work in the morning, they state that they would like the fluids and electrolytes and to be re-evaluated after that. 0108: Patient was re-evaluated no new at this time, patient mother at bedside state that they do want to attempt inpatient rehab. They are willing to go to any rehab facility, will begin reaching out will order repeat ethanol level. Patient with CIWA still at 0, she is well-appearing nontoxic calm and cooperative at this time 0700: Patient was signed out to Dr. Brewer, patient has been medically cleared is requesting inpatient detox/rehab pending acceptance to multiple facilities. 12/09/24, 0700, [place]. Sign-out from Dr. Modi. Patient medically cleared, awaiting placement for requested detox services. No alcohol withdrawal signs or symptoms at this time. IV fluids, thiamine, electrolytes given. Assumed care. 0930, patient now we would like to go, family/friend at bedside we will help her with transportation home. Return precautions discussed. Outpatient detox resources provided by nursing. Discharged as per patient request. Discharge Plan Departure Patient Disposition: Home Clinical Impression: Alcohol intoxication Activity Restrictions/Additional Instructions: Alcohol intoxication with initial request for detox services, observed overnight, alcohol levels were decreasing, no obvious withdrawal symptoms. By morning he felt improved, and decided that you did not want to wait for geriatric social work professor to discuss inpatient detox services. Brochure information provided for outpatient detox services. Discharged home per your request. Recheck with your regular doctor regarding chronic medical problems as planned. Take your regular prescription medications as planned. Recheck here or nearest emergency department for any change worsening symptoms or any concerns prior. Prescriptions: No Action trazodone 50 mg tablet 50 mg PO BEDTIME estradiol 0.25 mg/0.25 gram (0.1 %) gel in packet 1 packet transdermal DAILY acamprosate 333 mg tablet,delayed release (DR/EC) 333 mg PO TID Qty: 90 2RF olanzapine 7.5 mg tablet 7.5 mg PO QPM Qty: 90 1RF ondansetron 4 mg tablet,disintegrating 4 mg PO BID PRN (Reason: Nausea And Vomiting) Qty: 30 4RF olanzapine 2.5 mg tablet 5 mg PO QAM Qty: 180 0RF spironolactone 50 mg tablet 150 mg PO QAM Qty: 90 1RF alendronate 70 mg tablet See Rx Instructions .ROUTE .COMPLEX Qty: 12 0RF Dose Instruction: TAKE 1 TABLET BY MOUTH ON FRIDAY EVERY WEEK Rx Instructions: TAKE 1 TABLET BY MOUTH ON FRIDAY EVERY WEEK buspirone 5 mg tablet 7.5 mg PO BID Qty: 60 2RF Hold Instructions: dizziness pantoprazole 40 mg tablet,delayed release (DR/EC) 40 mg PO BID Qty: 60 1RF mecobalamin (vitamin B12) 500 mcg tablet,chewable 500 mcg PO DAILY Entresto 24-26 mg tablet 0.5 tab PO BID baclofen 10 mg tablet 10 mg PO Q8H Qty: 180 3RF rosuvastatin 5 mg tablet 5 mg PO DAILY thiamine HCl (vitamin B1) 100 mg tablet 100 mg PO DAILY Qty: 90 3RF Jardiance 10 mg Tablet 10 mg PO DAILY metoprolol succinate 25 mg tablet extended release 24 hr 25 mg PO BID potassium chloride 20 mEq tablet,ER particles/crystals 20 meq PO DAILY furosemide 40 mg tablet 20 mg PO BID Referrals: Andrew Herrera MD [Primary Care Provider] - Stand Alone Forms: Patient Portal/API/Survey
[2024-12-08] MEDS: FOLIC ACID 1 MG TABLET PO (23:28)
[2024-12-08] MEDS: MAGNESIUM SULFATE 2 GM/50 ML PIGGYBACK IV (23:29)
[2024-12-08] MEDS: THIAMINE 100 MG in SODIUM CHLORIDE 0.9% 100 ML 404 MG IV (23:30)
[2024-12-08] MEDS: SODIUM CHLORIDE 0.9% 1,000 ML 1000 ML IV (23:32)
[2024-12-09] VITALS (11 sets, daily range): BP systolic 84–128; BP diastolic 53–68; PULSE 72–86; RESP 18; O2SAT 95–100
[2024-12-09 01:40] LABS: Ethanol (ETOH) 284 mg/dL
--- NOTE | 2024-12-09 02:50 | PC.NURSE ---
Addendum entered by Sue Doyle CNA 12/09/24 06:31: 0631 Patient on a phone screen with [facility]. Addendum entered by Sue Doyle CNA 12/09/24 06:21: 0601: Spoke to Zenia at [facility] asking if they had any beds currently. She said they don't and it looks like they only have one male bed in the morning, but to call back because they don't know what could happen over the course of the day. Thanked eZnia for her help. Addendum entered by Sue Doyle CNA 12/09/24 04:32: Spoke to Ashly at [facility]. She said their provider is reviewing the patient information. Original Note: TONY note: Attempting to find placement for patient. Called the following places with the following responses: [facility]- spoke with Marino. They have no beds. [facility]: Spoke with Elicia. They have beds. Faxed over paperwork at [phone]. She will need a phone screening. [facility]: Spoke with Ashly. Patient's blood alcohol needs to be 300 or less. Faxed over chart, and at 0245 patient had a phone screening. [facility]: Faxed over paperwork. [facility] called at [phone] and said they declined the patient.
== END 2024-12-09 10:02 | disposition home or self-care (01) ==
PROVIDERS: Student in an Organized Health Care Education/Training Program; Emergency Provider Emergency Medicine; Family Provider Family Medicine; PCP Family Medicine
DX: F10.129 Alcohol abuse with intoxication, unspecified (principal); I50.9 Heart failure, unspecified; I11.0 Hypertensive heart disease with heart failure; E78.5 Hyperlipidemia, unspecified; Y90.8 Blood alcohol level of 240 mg/100 ml or more
CPT/HCPCS: 36415; 80053; 80305; 80320; 80329; 81003; 81025; 84439; 84443; 85025; 96361; 96365; 96368; 99284; G0480; J3475

== ENCOUNTER → 2025-01-07 13:12 | Outpatient (CLI) | payer OTHER, SELFPAY ==
[2023-12-14 08:10] VITALS: BMI 23.0
[2025-01-07 14:25] LABS: BUN Creatinine Ratio 9.4 (6-22); Blood Urea Nitrogen 8 mg/dL (7-17); Calcium 10.2 mg/dL (8.4-10.2); Carbon Dioxide 36 mmol/L (22-32); Chloride 94 mmol/L (98-107); Estimated Glomerular Filt Rate > 60 mL/min (>60); Glucose 72 mg/dL (70-100); HEMOLYSIS 30 (0-50); Sodium 138 mmol/L (137-145)
== END ==
PROVIDERS: Family Provider Family Medicine; PCP Family Medicine; Referring Provider Student in an Organized Health Care Education/Training Program; Visit Provider Student in an Organized Health Care Education/Training Program
DX: F50.029 Anorexia nervosa, binge eating/purging type, unspecified (principal)
CPT/HCPCS: 36415; 80048; 83735; 84100

== ENCOUNTER → 2025-01-27 10:58 | Outpatient (CLI) | payer OTHER, SELFPAY ==
[2023-12-14 08:10] VITALS: BMI 23.0
[2025-01-27 11:58] LABS: BUN Creatinine Ratio 10.5 (6-22); Blood Urea Nitrogen 10 mg/dL (7-17); Calcium 9.8 mg/dL (8.4-10.2); Chloride 88 mmol/L (98-107); Estimated Glomerular Filt Rate > 60 mL/min (>60); Glucose 98 mg/dL (70-99); HEMOLYSIS < 15 (0-50); Phosphorous 3.8 mg/dL (2.5-4.5); Potassium 3.2 mmol/L (3.4-5.1); Sodium 135 mmol/L (137-145)
[2025-01-27 12:05] LABS: Carbon Dioxide 36 mmol/L (22-32)
== END ==
PROVIDERS: Family Provider Family Medicine; PCP Family Medicine; Referring Provider Family Medicine; Visit Provider Student in an Organized Health Care Education/Training Program
DX: F50.029 Anorexia nervosa, binge eating/purging type, unspecified (principal)
CPT/HCPCS: 36415; 80048; 84100

== ENCOUNTER 2025-02-20 08:35 | Emergency (ER) | payer OTHER, SELFPAY ==
[2025-02-01 09:45] VITALS: BMI 23.0
[2025-02-20] VITALS (15 sets, daily range): BP systolic 99–131; BP diastolic 55–87; PULSE 69–94; RESP 12–22; TEMP 36.9; O2SAT 94–100; BMI 16.1
--- NOTE | 2025-02-20 08:59 | ED_ITS ---
HPI - General Adult General Chief complaint: Toxicology Problem Stated complaint: dehydrated , having a hard time walking x 2 days Time Seen by Provider: 02/20/25 08:58 History of Present Illness HPI narrative: Patient is a 39-year-old female with past medical history of alcohol use disorder, hyperlipidemia, hypertension, heart failure, anorexia presenting to the emergency department in the setting of unsteady gait and feeling generally ?knot?. Patient states that she has been drinking alcohol for the last several days, including more than usual on the evening prior to presentation. Patient denies having gone to sleep since consuming this alcohol and states that she has been feeling unsteady and comes in for evaluation. Patient denies any chest pain, shortness of breath, no dizziness or one-sided weakness. Patient denies any falls or syncope. Related Data Home Medications Medication Instructions Recorded Confirmed mecobalamin (vitamin B12) 500 mcg 500 mcg PO DAILY 02/07/23 10/25/24 chewable tablet empagliflozin 10 mg tablet 10 mg PO DAILY 09/23/23 10/25/24 (Jardiance) metoprolol succinate 25 mg 25 mg PO BID 01/02/24 10/25/24 tablet,extended release 24 hr potassium chloride 20 mEq 20 meq PO DAILY 01/02/24 10/25/24 tablet,extended release(part/cryst) sacubitril 24 mg-valsartan 26 mg 0.5 tab PO BID 02/10/24 10/25/24 tablet (Entresto) furosemide 40 mg tablet 20 mg PO BID 05/11/24 10/25/24 rosuvastatin 5 mg tablet 5 mg PO DAILY 08/17/24 10/25/24 estradiol 0.25 mg/0.25 gram (0.1 1 packet transdermal DAILY 08/30/24 10/25/24 %) transdermal gel packet trazodone 50 mg tablet 50 mg PO BEDTIME 08/30/24 01/07/25 Previous Rx's Medication Instructions Recorded baclofen 10 mg tablet 10 mg PO Q8H #180 tabs 05/11/24 thiamine HCl (vitamin B1) 100 mg 100 mg PO DAILY #90 tabs 10/05/24 tablet ondansetron 4 mg disintegrating 4 mg PO BID PRN Nausea And 10/08/24 tablet Vomiting #30 tabs olanzapine 2.5 mg tablet 5 mg (2 x 2.5 mg) PO QAM #180 tabs 10/25/24 buspirone 5 mg tablet 7.5 mg (1.5 x 5 mg) PO BID #60 tabs 11/17/24 pantoprazole 40 mg tablet,delayed 40 mg PO BID #60 tabs 12/06/24 release olanzapine 7.5 mg tablet 7.5 mg PO QPM #90 tabs 01/24/25 escitalopram oxalate 10 mg tablet See Rx Instructions .Route 02/01/25 (Lexapro) .COMPLEX #30 tabs alendronate 70 mg tablet See Rx Instructions .Route 02/04/25 .COMPLEX #12 tabs spironolactone 50 mg tablet 150 mg (3 x 50 mg) PO QAM #90 tabs 02/07/25 Allergies Allergy/AdvReac Type Severity Reaction Status Date / Time gabapentin AdvReac Intermediate Mental Verified 10/25/24 10:56 status changes Review of Systems Review of Systems ROS Unobtainable: All systems reviewed & are unremarkable except as noted in HPI and below Constitutional Constitutional: Denies frequent falls Eyes Eyes: Denies diplopia and Denies loss of vision ENT Ears, Nose, Mouth, and Throat: Denies abnormal hearing, Denies hearing loss and Reports disequilibrium Cardiovascular Cardiovascular: Denies chest pain and Denies leg edema Respiratory Respiratory: Denies cough Gastrointestinal Gastrointestinal: Denies abdominal pain and Denies vomiting Genitourinary Genitourinary: Denies dysuria Musculoskeletal Musculoskeletal: Reports abnormal gait Integumentary/Breasts Skin/Breast: Denies wounds Neurologic Neurologic: Denies abnormal hearing, Reports abnormal gait, Reports confusion, Denies frequent falls, Denies localized weakness, Denies loss of vision and Reports disequilibrium Psychiatric Psychiatric: Reports confusion Patient History Medical History Anorexia nervosa, binge eating/purging type Alcohol use disorder, severe, in early remission Generalized anxiety disorder Hypercalcemia Alcohol use disorder Pancytopenia Tricuspid regurgitation Mitral regurgitation HFrEF (heart failure with reduced ejection fraction) Left ventricular hypokinesis Hip pain, bilateral 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 Leukocytopenia GERD (gastroesophageal reflux disease) Caloric malnutrition Anorexia nervosa Neuropathy Depression Anxiety Alcoholism in remission Ankle pain, right Alcoholism Anorexia Surgical History History of total hip arthroplasty Social History household members: none tobacco type: vaping alcohol intake frequency: 3 or more drinks per day Alcohol type: wine and hard liquor Exam Initial Vital Signs Initial Vital Signs: Vital Signs Pulse Rate 72 02/20/25 08:55 Respiratory Rate 12 02/20/25 08:55 Blood Pressure 121/76 02/20/25 08:55 Pulse Oximetry 99 02/20/25 08:55 Const General: No acute distress Nutritional Appearance: underweight HENMT Head: atraumatic Ears: hearing grossly normal bilaterally Nose: external nose normal Face and sinus: normal facial exam and face symmetric Eyes General: Yes appearance normal, both eyes and all related structures Conjunctivae: conjunctivae normal Pupils: PERRL EOM: EOM intact bilaterally Direct ophthalmoscopy: normal light reflex Resp Effort & Inspection: normal respiratory effort and no respiratory distress Auscultation: clear to auscultation bilaterally Cardio Rate: regular rate Rhythm: regular rhythm GI Inspection: non-distended Palpation: soft Skin General: no rashes or lesions noted Neuro General: patient alert and moves all extremities Speech: other (slowed) Motor: muscle tone normal throughout Extrem General: normal to inspection and full ROM Right lower extremity: no edema Left lower extremity: no edema Psych Appearance: grossly normal Mental Status: mental status grossly normal Speech and Movement: slurred speech Mood: anxious mood Attitude: cooperative Course Orders Ordered: Discontinued Medications Sodium Chloride (Normal Saline 0.9%) 1,000 mls @ 1,000 mls/hr IV BOLUS ONE Stop: 02/20/25 10:48 Last Infusion: 02/20/25 10:59 Dose: Infused Documented By: Admin: 02/20/25 09:54 Dose: 1,000 mls/hr Documented By: AMY Sodium Chloride (Normal Saline 0.9%) 1,000 mls @ 1,000 mls/hr IV BOLUS ONE Stop: 02/20/25 12:50 Last Infusion: 02/20/25 13:08 Dose: Infused Documented By: Admin: 02/20/25 12:02 Dose: 1,000 mls/hr Documented By: AMY Ondansetron HCl (Ondansetron 4 Mg/2 Ml Inj) 4 mg IV NOW ONE Stop: 02/20/25 10:33 Last Admin: 02/20/25 10:35 Dose: 4 mg Documented By: AMY Pantoprazole Sodium (Pantoprazole 40 Mg Vial) 40 mg IV NOW ONE Stop: 02/20/25 10:33 Last Admin: 02/20/25 10:35 Dose: 40 mg Documented By: AMY Vital Signs Vital signs: Vital Signs - 8 hr 02/20/25 08:55 02/20/25 08:55 02/20/25 08:56 Temperature 98.4 F Pulse Rate 72 72 Respiratory Rate 12 16 Blood Pressure 121/76 128/81 Pulse Oximetry 99 100 Oxygen Delivery Method Room Air 02/20/25 09:00 02/20/25 09:00 02/20/25 09:30 Temperature Pulse Rate 69 78 Respiratory Rate 21 18 Blood Pressure 123/74 Pulse Oximetry 99 98 Oxygen Delivery Method 02/20/25 09:30 02/20/25 09:36 02/20/25 09:36 Temperature Pulse Rate 79 Respiratory Rate 12 Blood Pressure 110/65 112/59 L Pulse Oximetry 98 Oxygen Delivery Method Medical Decision Making Medical Records Medical records reviewed: Yes I reviewed the patient's medical records. Lab Data 02/20/25 09:13 02/20/25 09:13 Labs: Lab Results 02/20/25 02/20/25 02/20/25 Range/Units 09:13 11:13 13:14 WBC 3.7 L (4.5-11.0) X10^3/uL RBC 4.65 (4.0-5.2) X10^6/uL Hgb 15.9 (12.0-16.0) g/dL Hct 45.9 (36-46) % MCV 98.8 (80-100) fL MCH 34.3 H (26-34) PG MCHC 34.7 (30-36) % RDW 14.8 (11.6-14.8) % Plt Count 219 (150-400) X10^3/uL Neut % (Auto) 62.9 (50-75) % Lymph % (Auto) 26.6 (25-40) % [place] % (Auto) 9.6 (3-14) % Eos % (Auto) 0.1 L (2-4) % Baso % (Auto) 0.8 (0-2) % Neut # (Auto) 2300 (7543-0232) /uL Lymph # (Auto) 1000 L (7659-3788) /uL [place] # (Auto) 400 (0-900) /uL Eos # (Auto) 0 (0-450) /uL Baso # (Auto) 0 (0-100) /uL Sodium 132 L (137-145) mmol/L Potassium 4.8 (3.4-5.1) mmol/L Chloride 84 L (98-107) mmol/L Carbon Dioxide 25 (22-32) mmol/L BUN 20 H (7-17) mg/dL Creatinine 0.81 (0.52-1.04) mg/dL Estimated GFR > 60 (>60) mL/min BUN/Creatinine Ratio 24.7 H (6-22) Glucose 88 (70-99) mg/dL Lactate 5.0 H* 5.1 H* 4.5 H* (0.7-2.1) mmol/L Calcium 9.0 (8.4-10.2) mg/dL Magnesium 2.6 H (1.6-2.3) mg/dL Total Bilirubin 1.1 (0.2-1.3) mg/dL AST 350 H (14-36) IU/L ALT 161 H (<35) IU/L Alkaline Phosphatase 115 (38-126) U/L Total Protein 9.4 H (6.3-8.2) g/dL Albumin 5.7 H (3.5-5.0) g/dL Globulin 3.7 (1.7-4.1) g/dL Albumin/Globulin Ratio 1.5 (1.0-2.8) Ethyl Alcohol 478 H* (<10) mg/dL Lactate of 5.0, we will plan for fluid resuscitation suspect likely secondary to alcohol consumption. Without evidence of sepsis, poor perfusion on exam. ECG Data Attestation: I personally reviewed and interpreted this ECG as follows: Prior ECG tracings: available for review Interpretation: EKG demonstrating sinus rhythm at a rate of 70, notable for MD interval of 170, QTC 494, without evidence of acute ischemic changes and similar when compared to prior from 11/07/2024 Treatment and disposition Social Determinants of Health that impact treatment or disposition: substance use disorder MDM Narrative Medical decision making narrative: History and exam as above, patient presenting with confusion and unsteady gait after significant alcohol intake and lack of sleep. Suspect likely acute intoxication. Differential includes polysubstance use, dehydration, toxic alcohol poisoning, less likely to represent CVA without focal deficit, similarly without evidence of head trauma to suggest traumatic ICH. Medical records reviewed: Prior cardiology evaluation including visit on 08/04/2024 reports that most recent echocardiogram (11/05/2023) demonstrated ejection fraction of greater than 55%. Lab Test results independently reviewed as above. Elevated lactate likely secondary to alcohol consumption and relative dehydration. Plan for fluid resuscitation with IV fluid bolus. Lactate down trending on repeat and patient tolerating PO fluids with improved vitals and exam. Re-evaluations: Upon reevaluation, patient denies interest in seeking treatment for her alcohol use. Declines resources for detox. Patient counseled regarding alcohol cessation, discussed importance of staying well hydrated, return precautions and follow up plan. Discharged in stable condition. Discharge Plan Departure Patient Disposition: Home Clinical Impression: Elevated lactic acid level Alcohol intoxication Qualifiers: Complication of substance-induced condition: with unspecified complication Q ualified Code(s): F10.929 - Alcohol use, unspecified with intoxication, unspecified Instructions: DI for Alcohol Use Disorder Activity Restrictions/Additional Instructions: You were seen in the emergency department for your gait instability following alcohol consumption. Evaluation here including examination and lab work suggests that your symptoms are most likely in the setting of your alcohol use. You were noted to be dehydrated and with a lactate elevation, likely secondary to alcohol. The remainder of your workup was overall reassuring, although we do note that you have liver enzyme elevations. We highly recommend cessation from further alcohol for your health and safety. We also recommend follow-up with your primary care provider for close re- evaluation of your liver function and general health. If you develop worsening dizziness, syncope, nausea or vomiting, or not able to tolerate fluids, or have other symptoms that are concerning to you, please return to the emergency department for further evaluation. Prescriptions: No Action escitalopram oxalate [Lexapro] 10 mg tablet See Rx Instructions .Route .COMPLEX Qty: 30 2RF Rx Instructions: Take half a tablet (5mg) by mouth daily for 6 days, then increase to full tablet (10mg) by mouth daily thereafter; trazodone 50 mg tablet 50 mg PO BEDTIME estradiol 0.25 mg/0.25 gram (0.1 %) gel in packet 1 packet transdermal DAILY ondansetron 4 mg tablet,disintegrating 4 mg PO BID PRN (Reason: Nausea And Vomiting) Qty: 30 4RF olanzapine 2.5 mg tablet 5 mg PO QAM Qty: 180 0RF buspirone 5 mg tablet 7.5 mg PO BID Qty: 60 2RF Hold Instructions: dizziness pantoprazole 40 mg tablet,delayed release (DR/EC) 40 mg PO BID Qty: 60 1RF olanzapine 7.5 mg tablet 7.5 mg PO QPM Qty: 90 0RF alendronate 70 mg tablet See Rx Instructions .ROUTE .COMPLEX Qty: 12 0RF Dose Instruction: TAKE 1 TABLET BY MOUTH ON FRIDAY EVERY WEEK Rx Instructions: TAKE 1 TABLET BY MOUTH ON FRIDAY EVERY WEEK spironolactone 50 mg tablet 150 mg PO QAM Qty: 90 1RF mecobalamin (vitamin B12) 500 mcg tablet,chewable 500 mcg PO DAILY Entresto 24-26 mg tablet 0.5 tab PO BID baclofen 10 mg tablet 10 mg PO Q8H Qty: 180 3RF rosuvastatin 5 mg tablet 5 mg PO DAILY thiamine HCl (vitamin B1) 100 mg tablet 100 mg PO DAILY Qty: 90 3RF Jardiance 10 mg Tablet 10 mg PO DAILY metoprolol succinate 25 mg tablet extended release 24 hr 25 mg PO BID potassium chloride 20 mEq tablet,ER particles/crystals 20 meq PO DAILY furosemide 40 mg tablet 20 mg PO BID Referrals: Andrew Herrera MD [Primary Care Provider] - Stand Alone Forms: Patient Portal/API/Survey
--- NOTE | 2025-02-20 08:59 | EKG_ITS ---
[place] [id number] [place] [id number] Test Date: 2025-02-20 Pat Name: Naina Wing Department: [facility] Room: Gender: Female Vfx Artist: VINCE : 1985 Requested By: Order Number: [id number] Reading MD: Darrell Mccollum Measurements Intervals Coker Rate: 70 P: 106 ND: 170 QRS: 110 QRSD: 80 T: 102 QT: 458 QTc: 494 Interpretive Statements Suspect arm lead reversal, interpretation assumes no reversal Normal sinus rhythm Lateral infarct , age undetermined Electronically Signed On 02-20-2025 18:36:53 PDT by Darrell Mccollum
[2025-02-20 09:22] LABS: Add Manual Diff / Slide Review NO; Basophils Absolute Auto 0 /uL (0-100); Basophils Percent Auto 0.8 % (0-2); Eosinophils Absolute Auto 0 /uL (0-450); Eosinophils Percent Auto 0.1 % (2-4); Hematocrit 45.9 % (36-46); Hemoglobin 15.9 g/dL (12.0-16.0); Lymphocytes Absolute Auto 1000 /uL (1100-4500); Lymphocytes Percent Auto 26.6 % (25-40); Mean Corpuscular HGB Conc 34.7 % (30-36); Mean Corpuscular Hemoglobin 34.3 PG (26-34); Mean Corpuscular Volume 98.8 fL (80-100); Monocytes Absolute Auto 400 /uL (0-900); Monocytes Percent Auto 9.6 % (3-14); Neutrophils Absolute Auto 2300 /uL (1500-7000); Neutrophils Percent Auto 62.9 % (50-75); Platelet Count 219 X10^3/uL (150-400); Red Blood Cell Count 4.65 X10^6/uL (4.0-5.2); Red Cell Distribution Width 14.8 % (11.6-14.8); White Blood Cell Count 3.7 X10^3/uL (4.5-11.0)
[2025-02-20 09:47] LABS: Alanine Aminotransferase 161 IU/L (<35); Albumin 5.7 g/dL (3.5-5.0); Albumin Globulin Ratio 1.5 (1.0-2.8); Alkaline Phosphatase 115 U/L (38-126); Aspartate Aminotransferase 350 IU/L (14-36); BUN Creatinine Ratio 24.7 (6-22); Bilirubin Total 1.1 mg/dL (0.2-1.3); Blood Urea Nitrogen 20 mg/dL (7-17); Carbon Dioxide 25 mmol/L (22-32); Chloride 84 mmol/L (98-107); Estimated Glomerular Filt Rate > 60 mL/min (>60); Globulin 3.7 g/dL (1.7-4.1); Glucose 88 mg/dL (70-99); Magnesium 2.6 mg/dL (1.6-2.3); Potassium 4.8 mmol/L (3.4-5.1); Sodium 132 mmol/L (137-145); Total Protein 9.4 g/dL (6.3-8.2)
[2025-02-20] MEDS: SODIUM CHLORIDE 0.9% 1,000 ML 1000 ML IV ×2 (09:54→12:02)
[2025-02-20 09:57] LABS: HEMOLYSIS 54 (0-50)
[2025-02-20 09:59] LABS: Ethanol (ETOH) 478 mg/dL (<10)
--- NOTE | 2025-02-20 10:01 | PC.NURSE ---
Pt stated she has not drink in a while but last night drink a whole bottle of alcohol to herself. Her friends states that she had a drink before coming to the ER this morning. The patient stated she did not feel well and that's why she drink. She denies having any food or po fluids this morning and is now having hiccups. She was encouraged to sit up in bed instead of slouching.
[2025-02-20] MEDS: PANTOPRAZOLE 40 MG VIAL IV (10:35)
[2025-02-20] MEDS: ONDANSETRON 4 MG/2 ML INJ IV (10:35)
--- NOTE | 2025-02-20 10:47 | PC.NURSE ---
Patient's friend just stated that the patient has been drinking for a week. The patient stated that she has been drinking for 7 days now and has had a bottle each night for 7 days and that information was not offered at time of triage.
[2025-02-20 10:54] LABS: Reflexed Lactate in 2 Hours Y
--- NOTE | 2025-02-20 11:06 | PC.NURSE ---
Pt stated that she is having hiccups and has had them since her stroke. She also states that she wants to sober up and go home and does not want treatment.
[2025-02-20 11:41] LABS: Lactate 2HR (Lactic Acid Rflx) 5.1 mmol/L (0.7-2.1)
[2025-02-20 13:36] LABS: Lactate (Lactic Acid) 4.5 mmol/L (0.7-2.1)
[2025-02-20 15:00] LABS: Reflexed Lactate in 2 Hours Y
== END 2025-02-20 14:34 | disposition home or self-care (01) ==
PROVIDERS: Emergency Provider Student in an Organized Health Care Education/Training Program; Family Provider Family Medicine; PCP Family Medicine
DX: F10.929 Alcohol use, unspecified with intoxication, unspecified (principal); R74.02 Elevation of levels of lactic acid dehydrogenase [LDH]; Y90.8 Blood alcohol level of 240 mg/100 ml or more
CPT/HCPCS: 80053; 80320; 83605; 83735; 85025; 93005; 96361; 96374; 96375; 99284; J2405; J2470

== ENCOUNTER → 2025-03-04 11:28 | Outpatient (CLI) | payer OTHER, SELFPAY ==
[2025-02-01 09:45] VITALS: BMI 23.0
[2025-03-04 12:28] LABS: Add Manual Diff / Slide Review NO; Basophils Absolute Auto 0 /uL (0-100); Basophils Percent Auto 0.9 % (0-2); Eosinophils Absolute Auto 0 /uL (0-450); Eosinophils Percent Auto 0.1 % (2-4); Hematocrit 38.8 % (36-46); Hemoglobin 13.5 g/dL (12.0-16.0); Lymphocytes Absolute Auto 700 /uL (1100-4500); Lymphocytes Percent Auto 32.6 % (25-40); Mean Corpuscular HGB Conc 34.8 % (30-36); Mean Corpuscular Hemoglobin 34.5 PG (26-34); Monocytes Absolute Auto 400 /uL (0-900); Monocytes Percent Auto 18.7 % (3-14); Neutrophils Absolute Auto 1000 /uL (1500-7000); Neutrophils Percent Auto 47.7 % (50-75); Platelet Count 287 X10^3/uL (150-400); Red Blood Cell Count 3.92 X10^6/uL (4.0-5.2); Red Cell Distribution Width 15.8 % (11.6-14.8); White Blood Cell Count 2.1 X10^3/uL (4.5-11.0)
[2025-03-04 13:01] LABS: HEMOLYSIS < 15 (0-50); Iron 98 ug/dL (37-170)
[2025-03-04 13:02] LABS: Alanine Aminotransferase 50 IU/L (<35); Albumin 5.2 g/dL (3.5-5.0); Albumin Globulin Ratio 1.7 (1.0-2.8); Alkaline Phosphatase 57 U/L (38-126); Aspartate Aminotransferase 45 IU/L (14-36); BUN Creatinine Ratio 16.7 (6-22); Bilirubin Total 0.5 mg/dL (0.2-1.3); Blood Urea Nitrogen 14 mg/dL (7-17); Calcium 10.2 mg/dL (8.4-10.2); Carbon Dioxide 34 mmol/L (22-32); Chloride 95 mmol/L (98-107); Estimated Glomerular Filt Rate > 60 mL/min (>60); Globulin 3.1 g/dL (1.7-4.1); Glucose 75 mg/dL (70-99); Potassium 4.5 mmol/L (3.4-5.1); Sodium 138 mmol/L (137-145); Total Protein 8.3 g/dL (6.3-8.2)
[2025-03-04 13:12] LABS: Percent Iron Saturation 30 % (15-50); Total Iron Binding Capacity 323 ug/dL (265-497); Transferrin 312 mg/dL (206-381)
[2025-03-04 13:57] LABS: Ferritin 60 ng/mL (6-137); HEMOLYSIS 29 (0-50)
[2025-03-04 14:09] LABS: Folate > 20.0 ng/mL (2.76-20.0); Vitamin B12 > 1000 pg/mL (239-931)
[2025-03-06 21:10] LABS: Zinc 77 ug/dL (44-115)
== END ==
PROVIDERS: Family Provider Family Medicine; PCP Family Medicine; Referring Provider Internal Medicine Hematology & Oncology; Visit Provider Internal Medicine Hematology & Oncology
DX: Z09 Encounter for follow-up examination after completed treatment for conditions other than malignant neoplasm (principal); D63.8 Anemia in other chronic diseases classified elsewhere; D70.9 Neutropenia, unspecified; F50.02 Anorexia nervosa, binge eating/purging type; F33.2 Major depressive disorder, recurrent severe without psychotic features; F41.1 Generalized anxiety disorder; F10.20 Alcohol dependence, uncomplicated
CPT/HCPCS: 36415; 80053; 82607; 82728; 82746; 83540; 83550; 84630; 85025; 99214

== ENCOUNTER 2025-04-12 11:11 | Emergency (ER) | payer OTHER, SELFPAY ==
[2025-02-01 09:45] VITALS: BMI 23.0
[2025-04-12 11:23] VITALS: BP 83/40; PULSE 60; RESP 18; TEMP 36.5; O2SAT 100; BMI 16.0
[2025-04-12 12:04] VITALS: PULSE 53; O2SAT 99
[2025-04-12 12:05] VITALS: BP 74/51; PULSE 53; O2SAT 99
[2025-04-12] MEDS: SODIUM CHLORIDE 0.9% 1,000 ML 1000 ML IV (12:05)
[2025-04-12 12:07] LABS: Hematocrit 38.3 % (36-46); Hemoglobin 13.6 g/dL (12.0-16.0); Mean Corpuscular HGB Conc 35.4 % (30-36); Mean Corpuscular Hemoglobin 34.0 PG (26-34); Mean Corpuscular Volume 95.9 fL (80-100); Platelet Count 245 X10^3/uL (150-400)
[2025-04-12 12:08] LABS: Add Manual Diff / Slide Review YES
[2025-04-12 12:22] LABS: Alanine Aminotransferase 26 IU/L (<35); Albumin 4.7 g/dL (3.5-5.0); Albumin Globulin Ratio 1.8 (1.0-2.8); Alkaline Phosphatase 44 U/L (38-126); Blood Urea Nitrogen 13 mg/dL (7-17); Calcium 9.9 mg/dL (8.4-10.2); Carbon Dioxide 30 mmol/L (22-32); Chloride 99 mmol/L (98-107); Estimated Glomerular Filt Rate > 60 mL/min (>60); Globulin 2.6 g/dL (1.7-4.1); Glucose 89 mg/dL (70-99); HEMOLYSIS < 15 (0-50); Potassium 4.3 mmol/L (3.4-5.1); Sodium 137 mmol/L (137-145); Total Protein 7.3 g/dL (6.3-8.2)
[2025-04-12 12:30] VITALS: BP 91/55; PULSE 49; O2SAT 100
--- NOTE | 2025-04-12 12:31 | PC.NURSE ---
Patient sent here from psychiatry appointment where they took her blood pressure and found it to be around 70's systolic, patient reports that this is normal for her and she denies any symptoms. Patient takes metoprolol, has hx of liver failure, CHF
[2025-04-12 12:37] LABS: Lymphocytes Percent Manual 56.0 % (25-45); Monocytes Percent Manual 4.0 % (2-11); Neutrophils Absolute Manual 760 /uL (3000-5900); RBC Morphology Normal Morphology; Segmented Neutrophils Percent 40.0 % (38-70); Total Cells Counted 100
[2025-04-12 13:00] VITALS: BP 97/56; PULSE 47; O2SAT 100
--- NOTE | 2025-04-12 13:18 | ED.NAVMDI ---
HPI - Nausea/Vomiting/Diarrhea General Chief complaint: Nausea/Vomiting/Diarrhea Stated complaint: Low blood pressure Time Seen by Provider: 04/12/25 12:43 Source: patient Mode of arrival: Ambulatory History of Present Illness HPI Narrative: 39-year-old female patient with a history of alcoholic liver cirrhosis, anxiety, CHF and tachycardia for which she takes metoprolol. She is also on spironolactone and furosemide for the cirrhosis. She was being seen at her mental health counseling visit today and had a systolic pressure in the 80s and was sent to the ER. She had a few loose stools yesterday but otherwise feels fine and is not lightheaded. She normally runs a low blood pressure with systolics in the 90s and she has no symptoms currently. Related Data Home Medications ?Medication ?Instructions ?Recorded ?Confirmed mecobalamin (vitamin B12) 500 mcg 500 mcg PO DAILY 02/07/23 04/07/25 chewable tablet empagliflozin 10 mg tablet 10 mg PO DAILY 09/23/23 04/07/25 (Jardiance) metoprolol succinate 25 mg 25 mg PO BID 01/02/24 04/07/25 tablet,extended release 24 hr potassium chloride 20 mEq 20 meq PO DAILY 01/02/24 04/07/25 tablet,extended release(part/cryst) sacubitril 24 mg-valsartan 26 mg 0.5 tab PO BID 02/10/24 04/07/25 tablet (Entresto) furosemide 40 mg tablet 20 mg PO BID 05/11/24 04/07/25 rosuvastatin 5 mg tablet 5 mg PO DAILY 08/17/24 04/07/25 escitalopram oxalate 10 mg tablet 10 mg PO DAILY 03/04/25 04/07/25 (Lexapro) Previous Rx's ?Medication ?Instructions ?Recorded baclofen 10 mg tablet 10 mg PO Q8H #180 tabs 05/11/24 thiamine HCl (vitamin B1) 100 mg 100 mg PO DAILY #90 tabs 10/05/24 tablet ondansetron 4 mg disintegrating 4 mg PO BID PRN Nausea And 10/08/24 tablet Vomiting #30 tabs olanzapine 2.5 mg tablet 5 mg (2 x 2.5 mg) PO QAM #180 tabs 10/25/24 olanzapine 7.5 mg tablet 7.5 mg PO QPM #90 tabs 01/24/25 alendronate 70 mg tablet See Rx Instructions .Route 02/04/25 .COMPLEX #12 tabs spironolactone 50 mg tablet 150 mg (3 x 50 mg) PO QAM #90 tabs 02/07/25 trazodone 50 mg tablet 50 mg PO BEDTIME PRN insomnia #90 02/28/25 tabs buspirone 5 mg tablet 7.5 mg (1.5 x 5 mg) PO BID #60 tabs 04/04/25 pantoprazole 40 mg tablet,delayed 40 mg PO DAILY #180 tabs 04/07/25 release Allergies Allergy/AdvReac Type Severity Reaction Status Date / Time gabapentin AdvReac Intermediate Mental Verified 04/07/25 14:31 status changes Review of Systems Review of Systems Narrative: GENERAL: Denies chills, fatigue, malaise, fever, sweats. HEENT: Denies sinus pain, ear pain, sore throat, difficulty swallowing, dizziness. RESPIRATORY: Denies dyspnea, cough, wheezing, hemoptysis, sputum. CARDIOVASCULAR: Denies chest pain, palpitations, orthopnea, edema, GASTROINTESTINAL: See HPI. Otherwise Denies nausea, vomiting, abdominal pain, constipation, melena. : Denies dysuria, frequency, incontinence, hematuria, urinary retention. MUSCULOSKELETAL: denies weakness, joint pain, or bony pain SKIN: Denies rash, skin lesions, or other NEUROLOGIC: Denies weakness, headache, numbness, change in speech, confusion, seizures, incoordination. PSYCHIATRIC: No concerning psychosocial issues. 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 Well-developed patient, in mild distress. HEAD: Atraumatic. Normocephalic. EYES: Pupils equal round and reactive. Extraocular motions intact. No scleral icterus. No injection or drainage. CARDIOVASCULAR: Regular rate and rhythm without murmurs, gallops, or rubs. RESPIRATORY: Clear to auscultation. Breath sounds equal bilaterally. No wheezes, rales, or rhonchi. GASTROINTESTINAL: Abdomen soft, non-tender, nondistended. NEURO: AOx3. SKIN: No rash or erythema of visible areas Initial Vital Signs Initial Vital Signs: Vital Signs Temperature 97.7 F 04/12/25 11:23 Pulse Rate 60 04/12/25 11:23 Respiratory Rate 18 04/12/25 11:23 Blood Pressure 83/40 L 04/12/25 11:23 Pulse Oximetry 100 04/12/25 11:23 Oxygen Delivery Method Room Air 04/12/25 11:23 Course Orders Ordered: ED Orders 04/12/25 11:55 CBC Auto Diff [Complete Blood Count AUTO DIFF] Stat CMP [Comprehensive Metabolic Panel] Stat Discontinued Medications Sodium Chloride (Normal Saline 0.9%) 1,000 mls @ 1,000 mls/hr IV BOLUS ONE Stop: 04/12/25 12:31 Last Infusion: 04/12/25 12:37 Dose: Infused Documented By: Admin: 04/12/25 12:05 Dose: 1,000 mls/hr Documented By: HIPOLITO Vital Signs Vital signs: Vital Signs - 8 hr 04/12/25 11:23 04/12/25 12:04 04/12/25 12:05 Temperature 97.7 F Pulse Rate 60 53 L Respiratory Rate 18 Blood Pressure 83/40 L 74/51 L Pulse Oximetry 100 99 Oxygen Delivery Method Room Air 04/12/25 12:05 04/12/25 12:30 04/12/25 12:30 Temperature Pulse Rate 53 L 49 L Respiratory Rate Blood Pressure 91/55 L Pulse Oximetry 99 100 Oxygen Delivery Method 04/12/25 13:00 04/12/25 13:00 Temperature Pulse Rate 47 L Respiratory Rate Blood Pressure 97/56 L Pulse Oximetry 100 Oxygen Delivery Method MDM - Nausea/Vomiting/Diarrhea Lab Data 04/12/25 11:55 04/12/25 11:55 Labs: Lab Results 04/12/25 Range/Units 11:55 WBC 1.9 L* (4.5-11.0) X10^3/uL RBC 4.00 (4.0-5.2) X10^6/uL Hgb 13.6 (12.0-16.0) g/dL Hct 38.3 (36-46) % MCV 95.9 (80-100) fL MCH 34.0 (26-34) PG MCHC 35.4 (30-36) % RDW 14.4 (11.6-14.8) % Plt Count 245 (150-400) X10^3/uL Neut % (Auto) Not Reportable Lymph % (Auto) Not Reportable [place] % (Auto) Not Reportable Eos % (Auto) Not Reportable Baso % (Auto) Not Reportable Lymph # (Auto) Not Reportable [place] # (Auto) Not Reportable Baso # (Auto) Not Reportable Total Counted 100 Seg Neutrophils % 40.0 (38-70) % Lymphocytes % (Manual) 56.0 H (25-45) % Monocytes % (Manual) 4.0 (2-11) % Neutrophils # (Manual) 760 L (1107-7350) /uL RBC Morphology Normal morphology Sodium 137 (137-145) mmol/L Potassium 4.3 (3.4-5.1) mmol/L Chloride 99 (98-107) mmol/L Carbon Dioxide 30 (22-32) mmol/L BUN 13 (7-17) mg/dL Creatinine 0.87 (0.52-1.04) mg/dL Estimated GFR > 60 (>60) mL/min BUN/Creatinine Ratio 14.9 (6-22) Glucose 89 (70-99) mg/dL Calcium 9.9 (8.4-10.2) mg/dL Total Bilirubin 0.5 (0.2-1.3) mg/dL AST 41 H (14-36) IU/L ALT 26 (<35) IU/L Alkaline Phosphatase 44 (38-126) U/L Total Protein 7.3 (6.3-8.2) g/dL Albumin 4.7 (3.5-5.0) g/dL Globulin 2.6 (1.7-4.1) g/dL Albumin/Globulin Ratio 1.8 (1.0-2.8) MDM Narrative Medical decision making narrative: Patient was sent in for low blood pressure at the psychiatrist's office but she has no symptoms. She has had some diarrhea but her blood pressure returned a systolic in the 90s which she says is typical for her. She would like no further workup and is comfortable with following up with her primary care physician. Lab work reassuring. Patient has asymptomatic borderline hypotension but this is chronic for her. Follow up with primary care Discharge Plan Departure Patient Disposition: Home Clinical Impression: Hypotension Instructions: Cirrhosis, DI for Dehydration -- Adult, DI for Hypotension Activity Restrictions/Additional Instructions: Plan: Hydration, rest and supportive care with monitoring of blood pressure. Follow up with your doctor within the next week to discuss hypotension and possible adjustment on metoprolol dosing for your tachycardia. Return to the ER if worse. Prescriptions: No Action escitalopram oxalate [Lexapro] 10 mg tablet 10 mg PO DAILY ondansetron 4 mg tablet,disintegrating 4 mg PO BID PRN (Reason: Nausea And Vomiting) Qty: 30 4RF olanzapine 2.5 mg tablet 5 mg PO QAM Qty: 180 0RF olanzapine 7.5 mg tablet 7.5 mg PO QPM Qty: 90 0RF alendronate 70 mg tablet See Rx Instructions .ROUTE .COMPLEX Qty: 12 0RF Dose Instruction: TAKE 1 TABLET BY MOUTH ON FRIDAY EVERY WEEK Rx Instructions: TAKE 1 TABLET BY MOUTH ON FRIDAY EVERY WEEK spironolactone 50 mg tablet 150 mg PO QAM Qty: 90 1RF trazodone 50 mg tablet 50 mg PO BEDTIME PRN (Reason: insomnia ) Qty: 90 1RF buspirone 5 mg tablet 7.5 mg PO BID Qty: 60 2RF pantoprazole 40 mg tablet,delayed release (DR/EC) 40 mg PO DAILY Qty: 180 3RF mecobalamin (vitamin B12) 500 mcg tablet,chewable 500 mcg PO DAILY Entresto 24-26 mg tablet 0.5 tab PO BID baclofen 10 mg tablet 10 mg PO Q8H Qty: 180 3RF rosuvastatin 5 mg tablet 5 mg PO DAILY thiamine HCl (vitamin B1) 100 mg tablet 100 mg PO DAILY Qty: 90 3RF Jardiance 10 mg Tablet 10 mg PO DAILY metoprolol succinate 25 mg tablet extended release 24 hr 25 mg PO BID potassium chloride 20 mEq tablet,ER particles/crystals 20 meq PO DAILY furosemide 40 mg tablet 20 mg PO BID Referrals: Andrew Herrera MD [Primary Care Provider, Family Practice] Stand Alone Forms: Patient Portal/API
== END 2025-04-12 13:40 | disposition home or self-care (01) ==
PROVIDERS: Emergency Provider Emergency Medicine; Family Provider Family Medicine; PCP Family Medicine
DX: I95.9 Hypotension, unspecified (principal)
CPT/HCPCS: 36415; 80053; 85007; 85025; 96360; 99211; 99284

== ENCOUNTER → 2025-06-17 14:59 | Outpatient (CLI) | payer OTHER, SELFPAY ==
[2025-02-01 09:45] VITALS: BMI 23.0
[2025-06-17 15:55] LABS: HEMOLYSIS < 15 (0-50); Iron 138 ug/dL (37-170)
[2025-06-17 16:08] LABS: Percent Iron Saturation 43 % (15-50); Total Iron Binding Capacity 318 ug/dL (265-497); Transferrin 286 mg/dL (206-381)
[2025-06-17 16:35] LABS: Ferritin 29 ng/mL (6-137)
== END ==
LOC: LAB 15:01
PROVIDERS: Family Provider Family Medicine; PCP Family Medicine; Referring Provider Internal Medicine Hematology & Oncology; Visit Provider Internal Medicine Hematology & Oncology
DX: D70.9 Neutropenia, unspecified (principal); D63.8 Anemia in other chronic diseases classified elsewhere
CPT/HCPCS: 36415; 82728; 83540; 83550

== ENCOUNTER 2025-07-10 21:25 | Emergency (ER) | payer OTHER, SELFPAY ==
[2025-02-01 09:45] VITALS: BMI 23.0
[2025-07-10 21:30] VITALS: BP 105/54; PULSE 50; RESP 17; TEMP 36.6; O2SAT 99; BMI 14.8
--- NOTE | 2025-07-10 22:24 | PC.NURSE ---
Patient was witnessed walking out of the ED waiting room doors under own power without difficulty at 2151. Decision made at 2221 to [facility] patient off tracker.
--- NOTE | 2025-07-11 20:46 | ED.NEUROSD ---
HPI - Neuro Symptoms/Deficit General Chief Complaint: Neuro Symptoms/Deficit Stated Complaint: poss stroke, previously had Time Seen by Provider: 07/10/25 22:24 Source: patient Mode of arrival: Ambulatory History of Present Illness On Anticoagulants: No Related Data Home Medications ?Medication ?Instructions ?Recorded ?Confirmed mecobalamin (vitamin B12) 500 mcg 500 mcg PO DAILY 02/07/23 04/07/25 chewable tablet metoprolol succinate 25 mg 25 mg PO BID 01/02/24 04/07/25 tablet,extended release 24 hr potassium chloride 20 mEq 20 meq PO DAILY 01/02/24 04/07/25 tablet,extended release(part/cryst) sacubitril 24 mg-valsartan 26 mg 0.5 tab PO BID 02/10/24 06/24/25 tablet (Entresto) rosuvastatin 5 mg tablet 5 mg PO DAILY 08/17/24 04/07/25 Previous Rx's ?Medication ?Instructions ?Recorded thiamine HCl (vitamin B1) 100 mg 100 mg PO DAILY #90 tabs 10/05/24 tablet ondansetron 4 mg disintegrating 4 mg PO BID PRN Nausea And 10/08/24 tablet Vomiting #30 tabs trazodone 50 mg tablet 50 mg PO BEDTIME PRN insomnia #90 02/28/25 tabs pantoprazole 40 mg tablet,delayed 40 mg PO DAILY #180 tabs 04/07/25 release escitalopram oxalate 10 mg tablet 15 mg (1.5 x 10 mg) PO DAILY #45 04/26/25 (Lexapro) tabs alendronate 70 mg tablet See Rx Instructions .Route 05/02/25 .COMPLEX #12 tabs baclofen 10 mg tablet 10 mg PO Q8H #180 tabs 05/30/25 empagliflozin 10 mg tablet 10 mg PO DAILY #90 tabs 06/09/25 (Jardiance) spironolactone 50 mg tablet 150 mg (3 x 50 mg) PO QAM #90 tabs 06/23/25 buspirone 5 mg tablet 7.5 mg (1.5 x 5 mg) PO BID #90 tabs 06/27/25 Allergies Allergy/AdvReac Type Severity Reaction Status Date / Time gabapentin AdvReac Intermediate Mental Verified 07/10/25 21:30 status changes Review of Systems Hematologic/Lymphatic On Anticoagulants: No Patient History Medical History Anorexia nervosa, binge eating/purging type Alcohol use disorder, severe, in early remission Generalized anxiety disorder Hypercalcemia Alcohol use disorder Pancytopenia Tricuspid regurgitation Mitral regurgitation HFrEF (heart failure with reduced ejection fraction) Left ventricular hypokinesis Hip pain, bilateral 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 Leukocytopenia GERD (gastroesophageal reflux disease) Caloric malnutrition Anorexia nervosa Neuropathy Depression Anxiety Alcoholism in remission Ankle pain, right Alcoholism Anorexia Surgical History History of total hip arthroplasty Social History household members: none tobacco type: vaping alcohol intake frequency: 3 or more drinks per day Alcohol type: wine and hard liquor Exam Initial Vital Signs Initial Vital Signs: Vital Signs Temperature 97.9 F 07/10/25 21:30 Pulse Rate 50 L 07/10/25 21:30 Respiratory Rate 17 07/10/25 21:30 Blood Pressure 105/54 L 07/10/25 21:30 Pulse Oximetry 99 07/10/25 21:30 Oxygen Delivery Method Room Air 07/10/25 21:30 Discharge Plan Departure Patient Disposition: Left Without Being Seen Clinical Impression: Patient left without being seen Clinical Impression: (Ruled Out): Alcoholism Prescriptions: No Action escitalopram oxalate [Lexapro] 10 mg tablet 15 mg PO DAILY Qty: 45 2RF ondansetron 4 mg tablet,disintegrating 4 mg PO BID PRN (Reason: Nausea And Vomiting) Qty: 30 4RF trazodone 50 mg tablet 50 mg PO BEDTIME PRN (Reason: insomnia ) Qty: 90 1RF alendronate 70 mg tablet See Rx Instructions .ROUTE .COMPLEX Qty: 12 0RF Dose Instruction: TAKE 1 TABLET BY MOUTH ON FRIDAY EVERY WEEK Rx Instructions: TAKE 1 TABLET BY MOUTH ON FRIDAY EVERY WEEK baclofen 10 mg tablet 10 mg PO Q8H Qty: 180 0RF Jardiance 10 mg tablet 10 mg PO DAILY Qty: 90 3RF spironolactone 50 mg tablet 150 mg PO QAM Qty: 90 3RF buspirone 5 mg tablet 7.5 mg PO BID Qty: 90 2RF pantoprazole 40 mg tablet,delayed release (DR/EC) 40 mg PO DAILY Qty: 180 3RF mecobalamin (vitamin B12) 500 mcg tablet,chewable 500 mcg PO DAILY Entresto 24-26 mg tablet 0.5 tab PO BID rosuvastatin 5 mg tablet 5 mg PO DAILY thiamine HCl (vitamin B1) 100 mg tablet 100 mg PO DAILY Qty: 90 3RF metoprolol succinate 25 mg tablet extended release 24 hr 25 mg PO BID potassium chloride 20 mEq tablet,ER particles/crystals 20 meq PO DAILY
== END 2025-07-10 22:24 | disposition left against medical advice (07) ==
PROVIDERS: Emergency Provider Family Medicine; Family Provider Family Medicine; PCP Family Medicine
CPT/HCPCS: 99281

== ENCOUNTER → 2025-09-19 10:23 | Outpatient (CLI) | payer OTHER, SELFPAY ==
[2025-09-12 15:49] VITALS: BMI 23.0
[2025-09-19 11:44] LABS: Hematocrit 39.9 % (36-46); Hemoglobin 13.8 g/dL (12.0-16.0); Mean Corpuscular HGB Conc 34.5 % (30-36); Mean Corpuscular Hemoglobin 33.0 PG (26-34); Mean Corpuscular Volume 95.4 fL (80-100); Platelet Count 154 X10^3/uL (150-400)
[2025-09-19 11:45] LABS: Add Manual Diff / Slide Review YES
[2025-09-19 11:49] LABS: HEMOLYSIS < 15 (0-50); Iron 129 ug/dL (37-170)
[2025-09-19 11:50] LABS: Alanine Aminotransferase 21 IU/L (<35); Albumin 4.7 g/dL (3.5-5.0); Albumin Globulin Ratio 1.8 (1.0-2.8); Alkaline Phosphatase 48 U/L (38-126); Blood Urea Nitrogen 15 mg/dL (7-17); Calcium 10.4 mg/dL (8.4-10.2); Carbon Dioxide 37 mmol/L (22-32); Chloride 96 mmol/L (98-107); Estimated Glomerular Filt Rate 55 mL/min (>60); Globulin 2.6 g/dL (1.7-4.1); Glucose 73 mg/dL (70-99); HEMOLYSIS < 15 (0-50); Potassium 3.6 mmol/L (3.4-5.1); Sodium 138 mmol/L (137-145); Total Protein 7.3 g/dL (6.3-8.2)
[2025-09-19 12:03] LABS: Percent Iron Saturation 36 % (15-50); Total Iron Binding Capacity 357 ug/dL (265-497); Transferrin 320 mg/dL (206-381)
[2025-09-19 12:23] LABS: Ferritin 13 ng/mL (6-137)
[2025-09-19 13:32] LABS: Basophils Percent Manual 4.0 % (0-1); Eosinophils Percent Manual 2.0 % (2-4); Lymphocytes Percent Manual 44.0 % (25-45); Monocytes Percent Manual 8.0 % (2-11); Neutrophils Absolute Manual 714 /uL (3000-5900); Segmented Neutrophils Percent 42.0 % (38-70); Total Cells Counted 50
[2025-09-19 13:33] LABS: RBC Morphology Normal Morphology
== END ==
PROVIDERS: Family Provider Family Medicine; PCP Family Medicine
DX: D50.8 Other iron deficiency anemias (principal); D63.8 Anemia in other chronic diseases classified elsewhere; D70.9 Neutropenia, unspecified; Z09 Encounter for follow-up examination after completed treatment for conditions other than malignant neoplasm
CPT/HCPCS: 36415; 80053; 82390; 82525; 82728; 83540; 83550; 85007; 85025